=== PATIENT | male | born 1975 | race Caucasian/White ===

== ENCOUNTER 2022-07-31 05:42 | Outpatient (REF) | payer OTHER, SELFPAY ==
[2022-07-31 05:56] LABS: MANUAL DIFF FLAG NO
[2022-07-31 06:00] LABS: Basophils Percent Auto 0.9 % (0-2); Eosinophils Percent Auto 0.9 % (0-4); Hematocrit 23.9 % (42.0-52.0); Hemoglobin 7.7 g/dl (14.0-18.0); Imm Gran Abs Auto 0.05 X10*3/uL (0.00-0.03); Imm Gran Pct Auto 1.6 % (0.0-0.4); Lymphocytes Absolute Auto 0.3 X10*3/uL (1.2-4.9); Lymphocytes Percent Auto 10.8 % (20-40); Mean Corpuscular HGB Conc 32.2 g/dl (31.0-36.0); Mean Corpuscular Hemoglobin 28.9 pg (27.0-33.0); Mean Corpuscular Volume 89.8 fL (80.0-98.0); Mean Platelet Volume 9.2 fL (9.4-12.4); Monocytes Absolute Auto 0.4 X10*3/uL (0.1-1.2); Monocytes Percent Auto 11.7 % (2-11); Neutrophils Absolute Auto 2.3 x10*3/uL (2.0-8.3); Neutrophils Percent Auto 74.1 % (45-73); Platelet Count 367 X10*3/uL (160-400); Red Blood Count 2.66 X10*6/uL (4.60-5.80); Red Cell Distribution Width 17.4 % (11.0-16.0); White Blood Count 3.2 X10*3/uL (4.8-10.8)
[2022-07-31 06:28] LABS: Alanine Aminotransferase 8 U/L (0-40); Albumin Level 3.8 g/dL (3.5-5.0); Alkaline Phosphatase 94 U/L (39-117); Anion Gap 18 (12-20); Aspartate Amino Transferase 9 U/L (5-37); Bilirubin Total 0.4 mg/dL (0.0-1.0); Blood Urea Nitrogen 37 mg/dL (9-16); Calcium 8.6 mg/dL (8.4-10.2); Carbon Dioxide 26 mmol/L (22-29); Chloride 96 mmol/L (96-108); Estimated Glomerular Filt Rate 9; Glucose Random 301 mg/dL (60-115); Potassium 3.7 mmol/L (3.3-5.1); Sodium 136 mmol/L (135-145); Total Protein 5.9 g/dL (6.5-8.0)
== END 2022-07-31 05:43 | disposition home or self-care (01) ==
LOC: HO.MMNH1L 05:42
PROVIDERS: Visit Provider Family Medicine
DX: N18.6 End stage renal disease (principal)
CPT/HCPCS: 36415; 80053; 85025

== ENCOUNTER 2022-08-04 05:45 | Outpatient (REF) | payer OTHER, SELFPAY ==
[2022-08-04 06:19] LABS: Basophils Absolute Auto 0.1 X10*3/uL (0.0-0.2); Basophils Percent Auto 2.8 % (0-2); Eosinophils Percent Auto 1.4 % (0-4); Hematocrit 24.9 % (42.0-52.0); Hemoglobin 7.6 g/dl (14.0-18.0); Imm Gran Abs Auto 0.04 X10*3/uL (0.00-0.03); Imm Gran Pct Auto 1.8 % (0.0-0.4); Lymphocytes Absolute Auto 0.4 X10*3/uL (1.2-4.9); Lymphocytes Percent Auto 16.1 % (20-40); MANUAL DIFF FLAG SCAN; Mean Corpuscular HGB Conc 30.5 g/dl (31.0-36.0); Mean Corpuscular Hemoglobin 28.9 pg (27.0-33.0); Mean Corpuscular Volume 94.7 fL (80.0-98.0); Mean Platelet Volume 9.9 fL (9.4-12.4); Monocytes Absolute Auto 0.3 X10*3/uL (0.1-1.2); Monocytes Percent Auto 13.8 % (2-11); Neutrophils Absolute Auto 1.4 x10*3/uL (2.0-8.3); Neutrophils Percent Auto 64.1 % (45-73); Platelet Count 287 X10*3/uL (160-400); Red Blood Count 2.63 X10*6/uL (4.60-5.80); Red Cell Distribution Width 18.6 % (11.0-16.0); SCAN SMEAR FLAG 1
[2022-08-04 06:20] LABS: White Blood Count 2.2 X10*3/uL (4.8-10.8)
[2022-08-04 07:15] LABS: Anion Gap 20 (12-20); Blood Urea Nitrogen 55 mg/dL (9-16); Calcium 9.1 mg/dL (8.4-10.2); Carbon Dioxide 30 mmol/L (22-29); Chloride 99 mmol/L (96-108); Estimated Glomerular Filt Rate 7; Glucose Random 121 mg/dL (60-115); Potassium 3.3 mmol/L (3.3-5.1); Sodium 146 mmol/L (135-145)
== END 2022-08-04 05:46 | disposition home or self-care (01) ==
LOC: HO.MMNH1L 05:45
PROVIDERS: Visit Provider Family Medicine
DX: N18.6 End stage renal disease (principal)
CPT/HCPCS: 36415; 80048; 85025

== ENCOUNTER 2022-08-06 05:48 | Outpatient (REF) | payer OTHER, SELFPAY ==
[2022-08-06 06:49] LABS: Anion Gap 17 (12-20); Blood Urea Nitrogen 34 mg/dL (9-16); Calcium 9.4 mg/dL (8.4-10.2); Carbon Dioxide 35 mmol/L (22-29); Chloride 97 mmol/L (96-108); Magnesium 2.2 mg/dL (1.6-2.6); Potassium 3.5 mmol/L (3.3-5.1); Sodium 145 mmol/L (135-145)
[2022-08-06 06:51] LABS: Estimated Glomerular Filt Rate 10
[2022-08-07 11:12] LABS: Calcium (PTHI) 9.4 mg/dL (8.6-10.3); PTHI 990 pg/mL (16-77)
[2022-08-08 01:07] LABS: Tacrolimus Prograf 3.5 mcg/L
== END 2022-08-06 05:49 | disposition home or self-care (01) ==
LOC: HO.MMNH1L 05:48
PROVIDERS: Visit Provider Family Medicine
DX: E11.22 Type 2 diabetes mellitus with diabetic chronic kidney disease (principal); N18.6 End stage renal disease
CPT/HCPCS: 36415; 80051; 80197; 82310; 82565; 83735; 83970; 84100; 84520

== ENCOUNTER 2022-08-11 06:41 | Outpatient (REF) | payer OTHER, SELFPAY ==
[2022-08-11 06:59] LABS: Hematocrit 27.9 % (42.0-52.0); Hemoglobin 8.7 g/dl (14.0-18.0); Mean Corpuscular HGB Conc 31.2 g/dl (31.0-36.0); Mean Corpuscular Hemoglobin 30.2 pg (27.0-33.0); Mean Corpuscular Volume 96.9 fL (80.0-98.0); Mean Platelet Volume 9.7 fL (9.4-12.4); Platelet Count 272 X10*3/uL (160-400); Red Blood Count 2.88 X10*6/uL (4.60-5.80); Red Cell Distribution Width 19.3 % (11.0-16.0); White Blood Count 5.8 X10*3/uL (4.8-10.8)
[2022-08-11 07:46] LABS: Anion Gap 20 (12-20); Blood Urea Nitrogen 39 mg/dL (9-16); Carbon Dioxide 32 mmol/L (22-29); Chloride 98 mmol/L (96-108); Estimated Glomerular Filt Rate 8; Glucose Random 187 mg/dL (60-115); Potassium 3.4 mmol/L (3.3-5.1); Sodium 147 mmol/L (135-145)
== END 2022-08-11 06:42 | disposition home or self-care (01) ==
LOC: HO.MMNH1L 06:41
PROVIDERS: Visit Provider Family Medicine
DX: E11.22 Type 2 diabetes mellitus with diabetic chronic kidney disease (principal); N18.6 End stage renal disease
CPT/HCPCS: 36415; 80048; 85027

== ENCOUNTER 2023-06-19 11:27 | Emergency (ER) | payer OTHER, SELFPAY ==
--- NOTE | ~2023-06-19 | XR_ITS ---
EXAMINATION: XR CHEST CLINICAL INFORMATION: Chest pain COMPARISON: None available. TECHNIQUE: 2 views of the chest were obtained. FINDINGS: No focal consolidation. No pneumothorax. Trachea is midline. Cardiac mediastinal silhouette is not enlarged. No large or intact. Soft tissues are unremarkable. XR/XR chest 2V IMPRESSION: No acute cardiopulmonary process.
--- NOTE | ~2023-06-19 | XR_ITS ---
EXAMINATION: XR HUMERUS LEFT XR SHOULDER LEFT XR WRIST LEFT CLINICAL INFORMATION: Pain COMPARISON: Left shoulder radiographs from 02/10/2013 TECHNIQUE: Left shoulder, 3 views Left humerus, 2 views Left wrist, 4 views FINDINGS: Left shoulder: Alignment is normal at the glenohumeral and acromioclavicular joints. Small osteophytes are present at the glenohumeral joint. A few small clustered foci calcification project over the region of the distal infraspinatus tendon. The acromiohumeral distance is normal. There are no osteophytes projecting from the undersurface of the acromioclavicular joint. No os acromiale or subacromial enthesophyte. Left humerus: Intact. No lytic or blastic lesion. No focal soft tissue swelling. The elbow is normal. Arterial vascular calcifications are seen within the extremity. Left wrist: There are arterial vascular calcifications. Otherwise, soft tissues, bones and joints are unremarkable. Joint spaces of the wrist are maintained. No arthritic deformity. No acute fracture, subluxation or focal soft tissue swelling. XR/XR humerus LT IMPRESSION: * Mild osteoarthritis of the glenohumeral joint. * A few small foci of calcification are present in the region of the distal infraspinatus tendon. Calcific tendinitis could be a cause of shoulder pain. * No evidence of humeral fracture or subluxation. Alignment is normal at the glenohumeral joint and elbow. * The wrist is unremarkable.
--- NOTE | ~2023-06-19 | XR_ITS ---
EXAMINATION: XR HUMERUS LEFT XR SHOULDER LEFT XR WRIST LEFT CLINICAL INFORMATION: Pain COMPARISON: Left shoulder radiographs from 02/10/2013 TECHNIQUE: Left shoulder, 3 views Left humerus, 2 views Left wrist, 4 views FINDINGS: Left shoulder: Alignment is normal at the glenohumeral and acromioclavicular joints. Small osteophytes are present at the glenohumeral joint. A few small clustered foci calcification project over the region of the distal infraspinatus tendon. The acromiohumeral distance is normal. There are no osteophytes projecting from the undersurface of the acromioclavicular joint. No os acromiale or subacromial enthesophyte. Left humerus: Intact. No lytic or blastic lesion. No focal soft tissue swelling. The elbow is normal. Arterial vascular calcifications are seen within the extremity. Left wrist: There are arterial vascular calcifications. Otherwise, soft tissues, bones and joints are unremarkable. Joint spaces of the wrist are maintained. No arthritic deformity. No acute fracture, subluxation or focal soft tissue swelling. XR/XR wrist LT min 3V IMPRESSION: * Mild osteoarthritis of the glenohumeral joint. * A few small foci of calcification are present in the region of the distal infraspinatus tendon. Calcific tendinitis could be a cause of shoulder pain. * No evidence of humeral fracture or subluxation. Alignment is normal at the glenohumeral joint and elbow. * The wrist is unremarkable.
--- NOTE | ~2023-06-19 | XR_ITS ---
EXAMINATION: XR HUMERUS LEFT XR SHOULDER LEFT XR WRIST LEFT CLINICAL INFORMATION: Pain COMPARISON: Left shoulder radiographs from 02/10/2013 TECHNIQUE: Left shoulder, 3 views Left humerus, 2 views Left wrist, 4 views FINDINGS: Left shoulder: Alignment is normal at the glenohumeral and acromioclavicular joints. Small osteophytes are present at the glenohumeral joint. A few small clustered foci calcification project over the region of the distal infraspinatus tendon. The acromiohumeral distance is normal. There are no osteophytes projecting from the undersurface of the acromioclavicular joint. No os acromiale or subacromial enthesophyte. Left humerus: Intact. No lytic or blastic lesion. No focal soft tissue swelling. The elbow is normal. Arterial vascular calcifications are seen within the extremity. Left wrist: There are arterial vascular calcifications. Otherwise, soft tissues, bones and joints are unremarkable. Joint spaces of the wrist are maintained. No arthritic deformity. No acute fracture, subluxation or focal soft tissue swelling. XR/XR shoulder LT min 2V IMPRESSION: * Mild osteoarthritis of the glenohumeral joint. * A few small foci of calcification are present in the region of the distal infraspinatus tendon. Calcific tendinitis could be a cause of shoulder pain. * No evidence of humeral fracture or subluxation. Alignment is normal at the glenohumeral joint and elbow. * The wrist is unremarkable.
[2023-06-19 11:41] VITALS: BP 124/77; BMI 23.1
[2023-06-19 11:46] VITALS: BP 147/82; PULSE 97; RESP 18; TEMP 37.1; O2SAT 95
--- OUTSIDE RECORDS SUMMARY | 2023-06-19 12:37 | XMS_ITS | Continuity of Care Document ---
Author Name Unknown Organization [facility] Address [address] [place] [address]- Care Team Providers Care Transport Pilot Name Role Phone Kenneth CLARKE, Arleen Primary Care Physician [phone] [place]counter [facility] [place](s): 12/31/22 - 01/30/23 [facility] [address] [place] [id number] Allergies, Adverse Reactions, Alerts Substance Reaction Severity Status ibuprofen decreased kidney function Ac tive aspirin decresed kidney function Act nina Toradol 1 decreased kidney function Ac tive Robaxin itching Active Valium difficulty breathing Active Vicodin itching Active 1Pt states he is not allergic to this medication Immunizations Given and Recorded Vaccine Date Status Refusal Reason [id number] 12y+ bivalent booster vax 1 07/17/22 Given influenza virus vaccine, inactivated 07/17/22 Give n influenza virus vaccine, inactivated 08/01/21 Darrick rded influenza virus vaccine, inactivated 07/12/20 Darrick rded influenza virus vaccine, inactivated 06/30/19 Give n influenza virus vaccine, inactivated 07/16/15 Give n influenza virus vaccine, inactivated 08/10/14 Give n SARS-CoV-2 (COVID-19) mRNA BNT-162b2 vac 08/01/21 Recorded SARS-CoV-2 (COVID-19) mRNA BNT-162b2 vac 01/14/21 Recorded SARS-CoV-2 (COVID-19) mRNA BNT-162b2 vac 12/22/20 Recorded pneumococcal 13-valent vaccine 04/04/21 Given hepatitis B adult vaccine 07/16/15 Given hepatitis B adult vaccine 05/14/15 Given hepatitis B adult vaccine 7/16/15 Given pneumococcal 23-valent vaccine 11/09/14 Given tetanus/diphtheria/pertussis, acel(Tdap) 11/09/14 Given tetanus-diphtheria toxoids (Td) 2 11/27/11 Given Influenza Inactive (IM) (oldterm) 3 11/27/11 Given 1Result Comment: GIVEN BY GERALDINE HOOKS, RN 2Admin Note: vis 08/15/08 3Admin Note: vis Medications Alcohol Pads See Instructions, # 100 each, Refills 11, Tot. Refills 11, Maintenance, use to clean skin prior to insulin injections and before applying new sagar sensor (max 5 times per day), 11/25/22 10:33:00 EST, Supply, 168, cm, 11/11/22 8:46:00 EST, Height, 60.... Start Date: 11/25/22 Status: Ordered B-D PEN NDL MINI [id number](12/11)PRPL USE DIRECTED FOR TYPE 1 DIABETES Start Date: 11/25/22 Status: Ordered Baqsimi One Pack 3 mg nasal powder See Instructions, 3 mg Once In one nostril; dose does not need to be inhaled may repeat in 15 minutes alternate nostrils, # 1 each, 5 Refills, Soft Stop, 09/19/22 22:47:00 EST, [facility] #[id number], Partial fill upon patient request if the p... Start Date: 09/19/22 Status: Ordered Blood Pressure Monitor Blood Pressure Monitor, See Instructions, # 1 each, Refills 0, Tot. Refills 0, Maintenance, to be used to check BP daily, Dx: HTN, ESRD on HD, new onset hypotenstion with falls; just stopped nifedipine, 07/17/22 18:07:00 EDT, Supply Start Date: 07/17/22 Status: Ordered FLUoxetine 20 mg oral capsule 1, capsule, By Mouth, Daily, # 30 capsule, Refills 11, Maintenance, 09/30/22 13:35:00 EST, Route toPharmacy Electronically, [facility] #[id number], 168, cm, 09/19/22 14:56:00 EST, Height, 60.2,kg, 07/24/22 0:30:00 EDT, Dry Weight Start Date: 09/30/22 Status: Ordered FreeStyle Sagar 2 Monitor See Instructions, # 1 each, Refills 0, Tot. Refills 0, Maintenance, use to check blood sugar every 8 hours, 11/17/22 8:32:00 EST, Supply, 168, cm, 11/11/22 8:46:00 EST, Height, 60.2, kg, 07/24/22 0:30:00 EDT, Dry Weight Start Date: 11/17/22 Status: Ordered FREESTYLE SAGAR 2 READER DEVICE FREESTYLE SAGAR 2 READER DEVICE, See Instructions, # 1 each, 0 Refills, Maintenance, USE TO CHECK BLOOD SUGAR EVERY 8 HOURS, 12/10/22 13:44:00 EDT, 168, cm, 12/05/22 10:47:00 EST, Height, 60.2, kg, 07/24/22 0:30:00 EDT, Dry Weight Start Date: 12/10/22 Status: Ordered FreeStyle Sagar 2 Sensors See Instructions, # 2 each, Refills 11, Tot. Refills 11, Maintenance, use to check blood sugar at least every 8 hours, replace sensors every 14 days, 11/17/22 8:32:00 EST, Supply, 168, cm, 11/11/22 8:46:00 EST, Height, 60.2, kg, 07/24/22 0:30:00 EDT,... Start Date: 11/17/22 Status: Ordered Freestyle Lite Lancets See Instructions, # 100 each, Refills 3, Tot. Refills 3, Maintenance, use to check BG BID for dx: Type 2 Diabetes Mellitus, 06/29/22 11:35:00 EDT, Supply, 167, cm, 06/29/22 8:48:00 EDT, Height, 69.75, kg, 06/10/22 1:04:00 EDT, Dry Weight Start Date: 06/29/22 Status: Ordered Freestyle Lite Monitor See Instructions, # 1 each, Refills 0, Tot. Refills 0, Maintenance, use to check BG BID for type 2 DM, 07/12/20 13:48:00 EDT, Supply, 167.64, cm, 07/12/20 8:38:00 EDT, Height, 70, kg, 04/11/20 15:19:00 EDT, Dry Weight Start Date: 07/12/20 Stop Date: 08/11/20 Status: Ordered Freestyle Lite Test Strips See Instructions, # 100 each, Refills 11, Tot. Refills 11, Maintenance, use to check BG BID for dx:E11.65, 06/29/22 11:36:00 EDT, Supply, 167, cm, 06/29/22 8:48:00 EDT, Height, 69.75, kg, 06/10/22 1:04:00 EDT, Dry Weight Start Date: 06/29/22 Status: Ordered glucose 4 gm oral tablet, chewable 4 tablet = 16 Gm, Chew, Once, PRN as needed for low blood sugar, # 50 tablet, 0 Refills, Soft Stop,09/19/22 22:51:00 EST, Chew Tablet, [facility] #[id number], Partial fill upon patient request if the prescription is for a schedule II opioid drug... Start Date: 09/19/22 Status: Ordered Lantus Solostar Pen 100 units/mL subcutaneous solution See Instructions, Please take 20 units at bedtime E11.8, # 45 mL, 3 Refills, Maintenance, 12/29/22 8:07:00 EDT, Injection, [facility] #[id number], Partial fill upon patient request if the prescription is for a schedule II opioid drug., 168, cm,... Start Date: 12/29/22 Status: Ordered levothyroxine 0.025 mg oral tablet 1.5 tablet, By Mouth, Daily, # 45 tablet, 10 Refills, Maintenance, 01/12/23 16:11:00 EDT, [facility] #[id number], 168, cm, 12/26/22 16:32:00 EDT, Height, 72.7, kg, 12/20/22 14:52:00 EDT, Dry Weight Start Date: 01/12/23 Status: Ordered multivitamin Vitamin B Complex with C and Folic Acid oral capsule TAKE 1 CAPSULE BY MOUTH ONCE DAILY Start Date: 11/25/22 Status: Ordered mycophenolate mofetil 500 mg oral tablet TAKE 3 TABLETS BY MOUTH TWICE DAILY Start Date: 11/25/22 Status: Ordered NovoLOG FlexPen 100 units/mL subcutaneous solution See Instructions, Please take at least 15 minutes before meals 3 times a day per the scale: BG 100 - 139: 6 units; BG 140 - 179: 7 units; BG 180 - 219: 8 units; BG 220 - 259: 9 units; BG 260 - 299: 10 units; BG 300 - 339: 11 units; BG... Start Date: 12/27/22 Status: Ordered Pen [place], 31 G x 5 mm BD Ultra Fine III See Instructions, # 100 each, Refills 3, Tot. Refills 3, Maintenance, use as directed for Diabetes Mellitus E11.8, 12/27/22 11:56:00 EDT, Compound, 168, cm, 12/26/22 16:32:00 EDT, Height, 72.7, kg, 12/20/22 14:52:00 EDT, Dry Weight Start Date: 12/27/22 Stop Date: 12/22/23 Status: Ordered predniSONE 5 mg oral tablet 1 tablet = 5 mg, By Mouth, Daily, # 60 tablet, 0 Refills, Maintenance, 06/28/22 11:25:00 EDT, Tablet, [facility] #[id number], Partial fill upon patient request if the prescription is for a schedule II opioid drug., 167, cm, 06/28/22 8:15:00 EDT,... Start Date: 06/28/22 Status: Ordered sevelamer carbonate 800 mg oral tablet 2 tablet = 1,600 mg, By Mouth, 3 times a day with meals, 0 Refills, Maintenance, 07/30/22 13:40:00 EDT, Tablet, Partial fill upon patient request if the prescription is for a schedule II opioid drug. Start Date: 07/30/22 Status: Ordered sulfamethoxazole-trimethoprim 400 mg-80 mg oral tablet TAKE 1 TABLET BY MOUTH EVERY OTHER DAY FOR PROPHYLAXIS. GIVEN HE IS ON ANTI REJECTION TREATMENT [facility] REJECTION Start Date: 11/25/22 Status: Ordered tacrolimus 1 mg oral tablet, extended release = 8 mg, By Mouth, Daily in AM, Please take tacrolimus 8 mg PO daily in AM and f/u with nephrologistfor level monitoring and dose adjustment., # 30 tablet, 0 Refills, Maintenance, 07/10/22 12:57:00 EDT, XR Tablet, [facility] #[id number], Partial... Start Date: 07/10/22 Stop Date: 08/09/22 Status: Ordered tamsulosin 0.4 mg oral capsule 0.4 mg, 1, capsule, By Mouth, Daily, # 30 capsule, Refills 0, Tot. Refills 0, Maintenance, :30:00 EDT, Route to Pharmacy Electronically, [facility] #[id number], Partial fill upon patient request if the prescription is for a schedule II... Start Date: 07/21/22 Status: Ordered Trulicity Pen 0.75 mg/0.5 mL subcutaneous solution 0.5 mL = 0.75 mg, Subcutaneous Injection, Every week, rotate injection sites, # 2 mL, 5 Refills, Maintenance, 12/26/22 17:06:00 EDT, Solution, [facility] #[id number], Partial fill upon patient request if the prescription is for a schedule II opio... Start Date: 12/26/22 Status: Ordered valganciclovir 450 mg oral tablet 450 mg, 1, tablet, By Mouth, Every Thursday, Thursday and Thursday, # 26 tablet, Refills 1, Tot. Refills 1, Maintenance, 06/28/22 11:26:00 EDT, Route to Pharmacy Electronically, [facility] #[id number], Partial fill upon patient request if the prescr... Start Date: 06/28/22 Stop Date: 09/28/22 Status: Ordered Problem List Condition Confirmation Course Effective Dates Status H ealth Status Informant ESRD on hemodialysis Confirmed Active Diabetes mellitus Confirmed Active Hearing loss 1 Confirmed Active -donor kidney transplant recipient 2 Confirmed 04/11/20 Active Hyperkalemia Confirmed Active HTN (hypertension) Confirmed Active Lower back pain Confirmed Active ADAM (obstructive sleep apnea) Confirmed Active [facility] Care Management Vernell Mckenzie [phone] Confirmed Active Subclinical hypothyroidism Confirmed Active 1Weighed 1.5 pounds at . 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 Social History Social History Type Response Smoking Status Never smoker; Tobacc o user in household: No entered on: 09/12/15 Sex Patient Care team information Care Team Personnel Name: Desmond Anton RN Position: S RN Member Role: Primary Care Nurse Name: Eliza Ch RN Position: [facility] RN Member Role: Primary Care Nurse Name: Izzy Cooper Position: [facility] RN Member Role: Primary Care Nurse Name: Elie Alex MD Position: [facility] Renal MD Member Role: Lifetime Consulting Physician Address: Address: [address] [place] [address], [address] [facility] [place] [address]- Name: Rayray Brand Position: [facility] Physician (General Medicine) Member Role: Primary Care Nurse Name: Liudmila Hinds Position: [facility] RN Member Role: Primary Care Nurse Name: Kannan Gibbs RN Position: [facility] RN Member Role: Primary Care Nurse Name: Chase Brumfield RN Position: [facility] ED RN W/OE and Tasks Member Role: Primary Care Nurse Name: Link Stein RN Position: [facility] RN Supv Member Role: Primary Care Nurse Name: Isai Weaver DO Position: [facility] Renal MD Member Role: Lifetime Consulting Physician Address: Address: [address] [place], [place] [address] [place] [address]- Name: Lor Abdullahi RN Position: [facility] RN Member Role: Primary Care Nurse Name: Charity Billings RN Position: [facility] RN Member Role: Primary Care Nurse Name: Trae Hawkins III, RN Position: [facility] RN Member Role: Primary Care Nurse Name: Yamini Soares Position: [facility] RN Member Role: Primary Care Nurse Name: Marcus Ardon RN Position: [facility] RN Member Role: Primary Care Nurse Name: Jaison Sherwood MD Position: [facility] Renal MD Member Role: Lifetime Consulting Physician Address: Address: [address] [place] [address] [address] [facility] [place] [address]- [place] Name: Anna White RN Position: [facility] AMB Nurse Member Role: Primary Care Nurse Name: Marleny Sanchez RN Position: [facility] RN Member Role: Primary Care Nurse Name: Gabriel Chappell MD Position: [facility] Renal MD Member Role: Lifetime Consulting Physician Address: Address: [address] [place] [address] [facility] [place] [address]- Name: Muriel Page RN Position: [facility] SN RN Member Role: Primary Care Nurse Name: Marielena Sheehan RN Position: [facility] RN Member Role: Primary Care Nurse Name: Nadia Hernandez RN Position: [facility] RN Member Role: Primary Care Nurse Name: Alyssa Nguyen RN Position: [facility] RN Member Role: Primary Care Nurse Name: Елена Jules RN Position: [facility] RN Member Role: Primary Care Nurse Name: Arleen Cooper MD Position: [facility] Primary Care Physician Member Role: PCP Address: Address: [address] [place] [address]- [place] Care Team Related Persons Name: CAMI ELIAS Address: [address] [place] [address] Name: HERMILO PANDA Address: home [address] [address] Name: JACK PANDA Address: [address] [place] [address]
--- OUTSIDE RECORDS SUMMARY | 2023-06-19 12:37 | XMS_ITS | Continuity of Care Document ---
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 Role Phone Arleen Cooper MD Primary Care Physician Encounter [facility] Date(s): 07/19/22 - 07/22/[address] [address]- Encounter Diagnosis Diarrhea(Final) - 07/18/22 Discharge Disposition: A-D/C Home Attending Physician: Seema Chamorro MD Admitting Physician: Lilly Dutta MD Referring Physician: Not on Staff, Referring MD Allergies, Adverse Reactions, Alerts Substance Reaction Severity Status ibuprofen decreased kidney function Ac tive aspirin decresed kidney function Act nina Toradol 1 decreased kidney function Ac tive Robaxin itching Active Valium difficulty breathing Active Vicodin itching Active 1Pt states he is not allergic to this medication Immunizations Given and Recorded Vaccine Date Status Refusal Reason [id number] 12y+ bivalent booster vax 1 07/17/22 Given [...] vaccine 05/14/15 Given hepatitis B adult vaccine 04/12/15 Given pneumococcal 23-valent vaccine 11/09/14 Given tetanus/diphtheria/pertussis, acel(Tdap) 11/09/14 Given tetanus-diphtheria toxoids (Td) 2 11/27/11 Given Influenza Inactive (IM) (oldterm) 3 11/27/11 Given 1Result Comment: GIVEN BY GERALDINE HOOKS, RN 2Admin Note: vis 08/15/08 3Admin Note: vis Medications B-D PEN NDL SHRT [id number](02/10) COOPER B-D PEN NDL SHRT [id number](02/10) COOPER, See Instructions, # 100 each, 0 Refills, Maintenance, USE DIRECTED, 167.64, cm, 02/28/21 10:34:00 EDT, Height, 63.7, kg, 01/30/21 22:32:00 EDT, Dry Weight Start Date: 03/18/21 Status: Ordered Blood Pressure Monitor Blood Pressure Monitor, See Instructions, # 1 each, Refills 0, Tot. Refills 0, Maintenance, to be used to check BP daily, Dx: HTN, ESRD on HD, new onset hypotenstion with falls; just stopped nifedipine, 07/17/22 18:07:00 EDT, Supply Start Date: 07/17/22 Status: Ordered Blood Pressure Monitor Blood Pressure Monitor, See Instructions, # 1 each, Refills 0, Tot. Refills 0, Maintenance, to be used to check BP daily, Dx: HTN med monitoring on amlodipine hydralazine, 02/16/20 17:20:00 EDT, Supply Start Date: 02/16/20 Status: Ordered FREESTYLE LITE BLOOD GLUCOSE STRIPS FREESTYLE LITE BLOOD GLUCOSE STRIPS, See Instructions, # 100 Unknown, 5 Refills, Maintenance, USE TWICE DAILY, 06/04/22 16:23:00 EDT, 167.64, cm, 01/23/22 11:51:00 EDT, Height, 63.7, kg, 01/30/21 22:32:00 EDT, Dry Weight Start Date: 06/04/22 Status: Ordered Freestyle Lite Lancets See Instructions, [...] Dry Weight Start Date: 06/29/22 Status: Ordered gabapentin 100 mg oral capsule 100 mg, Capsule, By Mouth, 07/22/22 9:00:00 EDT Start Date: 07/22/22 Stop Date: 07/22/22 Status: Completed gabapentin 300 mg oral capsule 300 mg, 1, capsule, By Mouth, 3 times a day, # 90 capsule, Refills 0, Tot. Refills 0, Maintenance, 01/23/22 16:09:00 EDT, Route to Pharmacy Electronically, [facility] #[id number], Partial fill upon patient request if the prescription is for a jana... Start Date: 01/23/22 Status: Ordered insulin glargine (concentrated) 300 units/mL subcutaneous solution See Instructions, 18 units s/c at bedtime, # 12 mL, 2 Refills, Maintenance, 06/29/22 11:32:00 EDT, Solution, [facility] #[id number], Partial fill upon patient request if the prescription is for a schedule II opioid drug., 167, cm, 06/29/22 8:48:0... Start Date: 06/29/22 Status: Ordered insulin lispro (concentrated) 200 units/mL subcutaneous solution See Instructions, 3 units Subcutaneous Infusion for FSBS of every 100 and 1 unit additional for every 40 above 100, # 12 mL, 3 Refills, Maintenance, 06/29/22 14:22:00 EDT, [facility] #[id number], Partial fill upon patient request if the prescript... Start Date: 06/29/22 Status: Ordered levothyroxine 0.025 mg oral tablet 1.5 tablet, By Mouth, Daily, # 135 tablet, 0 Refills, [facility] #[id number], 167.64, cm, 01/23/22 11:51:00 EDT, Height, 63.7, kg, 01/30/21 22:32:00 EDT, Dry Weight Start Date: 03/27/22 Status: Ordered multivitamin Multiple Vitamins oral capsule 1 capsule, By Mouth, Daily, # 30 capsule, 0 Refills, Maintenance, 06/28/22 11:24:00 EDT, Capsule, [facility] #[id number], Partial fill upon patient request if the prescription is for a schedule II opioid drug., 1 capsule By Mouth Daily,x30 days,... Start Date: 06/28/22 Stop Date: 07/28/22 Status: Ordered pantoprazole 40 mg oral delayed release tablet = 40 mg, By Mouth, Daily, # 30 tablet, 0 Refills, Maintenance, 06/28/22 11:25:00 EDT, EC Tablet, 167, cm, 06/28/22 8:15:00 EDT, Height, 69.75, kg, 06/10/22 1:04:00 EDT, Dry Weight Start Date: 06/28/22 Stop Date: 07/28/22 Status: Ordered Pen [place], 31 G x 5 mm BD Ultra Fine III See Instructions, # 100 each, Refills 3, Tot. Refills 3, Maintenance, use as directed for Type 1 Diabetes Mellitus, 06/29/22 11:36:00 EDT, Compound, 167, cm, 06/29/22 8:48:00 EDT, Height, 69.75, kg, 06/10/22 1:04:00 EDT, Dry Weight Start Date: 06/29/22 Stop Date: 06/24/23 Status: Ordered predniSONE 5 mg oral tablet 2 tablet = 10 mg, By Mouth, Daily, # 60 tablet, 0 Refills, Maintenance, 06/28/22 11:25:00 EDT, Tablet, [facility] #[id number], Partial fill upon patient request if the prescription is for a schedule II opioid drug., 167, cm, 06/28/22 8:15:00 EDT,... Start Date: 06/28/22 Status: Ordered PROzac 20 mg oral capsule 20 mg, 1, capsule, By Mouth, Daily, # 30 capsule, Refills 0, Tot. Refills 0, Maintenance, 07/10/22 11:33:00 EDT, Route to Pharmacy Electronically, [facility] #[id number], Partial fill upon patient request if the prescription is for a schedule II... 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 Start Date: 07/10/22 Stop Date: 09/08/22 Status: Ordered tacrolimus 1 mg oral tablet, extended release = 7 mg, By Mouth, Daily in AM, Please take tacrolimus 7 mg PO daily in AM and f/u with nephrologistfor level monitoring and dose adjustment., # 210 tablet, 0 Refills, Maintenance, 07/10/22 12:57:00 EDT, XR Tablet, [facility] #[id number], Partial... Start Date: 07/10/22 Stop Date: 08/09/22 Status: Ordered tamsulosin 0.4 mg oral capsule 0.4 mg, 1, capsule, By Mouth, Daily, # 30 capsule, Refills 0, Tot. Refills 0, Maintenance, :30:00 EDT, Route to Pharmacy Electronically, [facility] #[id number], Partial fill upon patient request if the prescription is for a schedule II... Start Date: 07/21/22 Status: Ordered valganciclovir 450 mg oral tablet 450 mg, 1, tablet, By Mouth, Every Thursday, Thursday and Thursday, # 12 tablet, Refills 1, Tot. Refills 1, Maintenance, 06/28/22 11:26:00 EDT, Route to Pharmacy Electronically, [facility] #[id number], Partial fill upon patient request if the prescr... Start Date: 06/28/22 Status: Ordered vancomycin 125 mg oral capsule 1 capsule = 125 mg, By Mouth, Every 6 hours, for 10 days, Doses over 125 mg require ID consult. Indication for Use: C. difficile colitis, # 40 capsule, 0 Refills, Acute 07/31/22 9:30:00 EDT, :30:00 EDT, Capsule, [facility] #[id number],... Start Date: 07/21/22 Stop Date: 07/31/22 Status: Ordered Problem List Condition Confirmation Course Effective Dates Status H ealth Status Informant ESRD on hemodialysis Confirmed Active Diabetes mellitus Confirmed Active Hearing loss 1 Confirmed Active -donor kidney transplant recipient 2 Confirmed 04/11/20 Active Hyperkalemia Confirmed Active HTN (hypertension) Confirmed Active Lower back pain Confirmed Active ADAM (obstructive sleep apnea) Confirmed Active N Care Management [facility], Vernell Fabian [phone] Confirmed Active Subclinical hypothyroidism Confirmed Active 1Weighed 1.5 pounds at . 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 Results Orders for Microbiology Reports Name Date Blood Culture 07/18/22 Blood Culture #2 07/18/22 Microbiology Reports TEST:Blood Culture STATUS:Unauthenticated BODY SITE: SOURCE:Blood COLLECTED DATE/TIME:07/18/22 11:44 AM Blood Culture SPECIMEN DESCRIPTION : BLOOD NO SITE SPECIAL REQUESTS : NONE CULTURE : NO GROWTH 4 DAYS REPORT STATUS : PRELIMINARY REPORT TEST:Blood Culture, Second Order STATUS:Unauthenticated BODY SITE: SOURCE:Blood COLLECTED DATE/TIME:07/18/22 11:44 AM Blood Culture, Second Order SPECIMEN DESCRIPTION : BLOOD L HAND SPECIAL REQUESTS : NONE CULTURE : NO GROWTH 4 DAYS REPORT STATUS : PRELIMINARY REPORT Radiology Reports * Exam Date Time Procedure Performing Provider Status 07/18/22 1:48 PM Chest 2 Views Frontal and Lat Adis Lobo; Auth (Verified) Notes: (Chest 2 Views Frontal and Lat) Reason For Exam: Cough RESULT: Chest 2 Views Frontal and Lat Chest 2 Views Frontal and Lat Hx of Present Illness: was here for 1 month, home for a few days etc and continues to get worse, sicker then ever, diarrhea multiple times, low blood pressure, tired, lethargic cannot stop more then 5 min, had dialysis today full treatment was sent here after; COMPARISON: 07/06/2022 FINDINGS: LINES AND TUBES: None. LUNGS AND PLEURA: Low lung volumes. Minor bibasilar opacity is probably due to atelectasis. No major consolidation oredema. No pleural effusion. No pneumothorax. HEART, MEDIASTINUM AND JASON: Heart is normal in size. Normal mediastinal and hilar contour. BONES AND SOFT TISSUES: Normal. IMPRESSION: Low lung volumes and likely mild basilar atelectasis. No convincing evidence of pneumonia or other acute process. WSN: [id number] Ordering Physician: Flori Castillo Dictated By: Lalo Lynn MD Dictated Date/Time: 07/18/22 1:52 pm Reviewed By: Lalo Lynn MD Signed By: Lalo yLnn MD Signed Date/Time: 07/18/22 1:52 pm Transcribed By: AMANDA Transcribed Date/Time: 07/18/22 1:50 pm Vital Signs Most recent to oldest [Reference Range]: 1 2 3 Height 168 cm (07/22/22 7:52 AM) 168 cm (07/22/22 4:30 AM) 168 cm (07/21/22 9:10 PM) Weight 53.2 kg (07/18/22 7:42 PM) 53.2 kg (07/18/22 6:57 PM) 60 kg (07/18/22 3:27 PM) Oxygen Saturation [94-100 %] 95 % (07/22/22 7:52 AM) 96 % (07/22/22 4:30 AM) 96 % (07/21/22 9:10 PM) Pulse Rate [55-90 bpm] 98 bpm *H* (07/22/22 7:52 AM) 107 bpm *H* (07/22/22 4:30 AM) 100 bpm *H* (07/21/22 9:10 PM) Body Mass Index [18.5-24.99 kg/m2] 18.85 kg/m2 (07/18/22 6:57 PM) 21.26 kg/m2 (07/18/22 3:27 PM) 21.26 kg/m2 (07/18/22 11:11 AM) Blood Pressure [90-138/55-84 mm Hg] 98/50mm Hg (07/22/22 7:52 AM) 117/60mm Hg (07/22/22 4:30 AM) 119/67mm Hg (07/21/22 9:10 PM) Respiratory Rate [16-30 br/min] 16 br/min (07/22/22 10:05 AM) 18 br/min (07/22/22 9:05 AM) 19 br/min (07/22/22 7:52 AM) Temperature [96.8-100.4 DegF] 99.2 DegF (07/22/22 7:52 AM) 100 DegF (07/22/22 4:30 AM) 98.2 DegF (07/21/22 9:10 PM) Mode of Delivery (Oxygen) Room air (07/22/22 7:52 AM) Room air (07/22/22 4:30 AM) Room air (07/21/22 9:10 PM) Blood pressure sites Arm, left (07/22/22 4:30 AM) Arm, right (07/21/22 9:10 PM) Arm, left (07/21/22 9:49 AM) Temperature Route Oral (07/22/22 7:52 AM) Oral (07/22/22 4:30 AM) Oral (07/21/22 9:10 PM) Dry Weight 53.2 kg (07/18/22 6:57 PM) 60 kg (07/18/22 3:27 PM) 60 kg (07/18/22 11:11 AM) Weight Obtained Via Bed scale (07/18/22 7:42 PM) Social History Social History Type Response Smoking Status Never smoker; Tobacc o user in household: No entered on: 09/12/15 Sex Note * [employer] , CIS S: TRANSCRIBE Lalo Lynn MD: VERIFY Event Display: Result: Authored Date: [id number] Chest 2 Views Frontal and Lat Hx of Present Illness: was here for 1 month, home for a few days etc and continues to get worse, sicker then ever, diarrhea multiple times, low blood pressure, tired, lethargic cannot stop more then 5 min, had dialysis today full treatment was sent here after; COMPARISON: 07/06/2022 FINDINGS: LINES AND TUBES: None. LUNGS AND PLEURA: Low lung volumes. Minor bibasilar opacity is probably due to atelectasis. No major consolidation oredema. No pleural effusion. No pneumothorax. HEART, MEDIASTINUM AND JASON: Heart is normal in size. Normal mediastinal and hilar contour. BONES AND SOFT TISSUES: Normal. IMPRESSION: Low lung volumes and likely mild basilar atelectasis. No convincing evidence of pneumonia or other acute process. WSN: [id number] Ordering Physician: Flori Castillo Dictated By: Lalo Lynn MD Dictated Date/Time: 07/18/22 1:52 pm Reviewed By: Lalo Lynn MD Signed By: Lalo Lynn MD Signed Date/Time: 07/18/22 1:52 pm Transcribed By: AMANDA Transcribed Date/Time: 07/18/22 1:50 pm Patient Care team information Personnel Name: Arleen Cooper MD Address: Address: [address] [place] [address]
--- OUTSIDE RECORDS SUMMARY | 2023-06-19 12:37 | XMS_ITS | Continuity of Care Document ---
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 Role Phone Arleen Cooper MD Primary Care Physician [phone] Encounter [facility] Date(s): 01/09/22 - 02/08/[address] [address]- Allergies, Adverse Reactions, Alerts Substance Reaction Severity Status ibuprofen decreased kidney function Ac tive aspirin decresed kidney function Act nina Toradol 1 decreased kidney function Ac tive Robaxin itching Active Valium difficulty breathing Active Vicodin itching Active 1Pt states he is not allergic to this medication Immunizations Given and Recorded Vaccine Date Status Refusal Reason influenza virus vaccine, inactivated 08/01/21 Darrick rded [...] tetanus/diphtheria/pertussis, acel(Tdap) 11/09/14 Given tetanus-diphtheria toxoids (Td) 1 11/27/11 Given Influenza Inactive (IM) (oldterm) 2 11/27/11 Given 1Admin Note: vis 08/15/08 2Admin Note: vis Medications amLODIPine 10 mg oral tablet 10 mg, 1, tablet, By Mouth, Daily, # 30 tablet, Refills 5, Tot. Refills 5, Maintenance, 02/18/21 16:31:00 EDT, Route to Pharmacy Electronically, [facility] #[id number], Partial fill upon patientrequest if the prescription is for a schedule II op... Start Date: 02/18/21 Stop Date: 08/17/21 Status: Ordered B-D PEN NDL SHRT [id number](02/10) COOPER B-D PEN NDL SHRT [id number](02/10) COOPER, See Instructions, # 100 each, 0 [...] EDT, Supply Start Date: 02/16/20 Status: Ordered carvedilol 12.5 mg oral tablet 12.5 mg, 1, tablet, By Mouth, 2 times a day, # 60 tablet, Refills 0, Tot. Refills 0, Maintenance, 07/18/20 11:05:00 EDT, Route to Pharmacy Electronically, [facility], 167.64, cm, 07/12/20 8:38:00 EDT, Height, 70, kg, 04/11/20 15:19:00... Start Date: 07/18/20 Stop Date: 08/17/20 Status: Ordered Envarsus XR 1 mg oral tablet, extended release 4 tablet = 4 mg, By Mouth, Daily in AM, # 240 tablet, 0 Refills, Maintenance, 04/12/20 12:33:00 EDT, [facility], 167.64, cm, 04/12/20 4:21:00 EDT, Height, 70, kg, 04/11/20 15:19:00 EDT, Dry Weight Start Date: 04/12/20 Status: Ordered Freestyle Lite Lancets See Instructions, # 100 each, Refills 3, Tot. Refills 3, Maintenance, use to check BG BID for dx: Type 2 Diabetes Mellitus, 07/30/21 9:34:00 EDT, Supply, 167.64, cm, 04/04/21 10:55:00 EDT, Height, 63.7, kg, 01/30/21 22:32:00 EDT, Dry Weight Start Date: 07/30/21 Status: Ordered Freestyle Lite Monitor See Instructions, [...] use to check BG BID for dx:E11.65, 04/29/21 8:22:00 EDT, Supply, 167.64, cm, 04/04/21 10:55:00 EDT, Height, 63.7, kg, 01/30/2122:32:00 EDT, Dry Weight Start Date: 04/29/21 Status: Ordered gabapentin 300 mg oral capsule 300 mg, 1, capsule, By Mouth, 3 times a day, # 90 capsule, Refills 0, Tot. Refills 0, Maintenance, 01/23/22 16:09:00 EDT, Route to Pharmacy Electronically, [facility] #[id number], Partial fill upon patient request if the prescription is for a jana... Start Date: 01/23/22 Status: Ordered Kayexcelate Powder Kayexcelate Powder, 30 grams, By Mouth, Daily, # 454 Gm, Refills 1, Tot. Refills 1, Maintenance, Mix 8 level teaspoons in water or apple juice & drink by mouth today & tomorrow, 04/19/20 15:08:00 EDT, Pt to hand picker 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 Start Date: 04/19/20 Stop Date: 06/18/20 Status: Ordered Lantus Solostar Pen 100 units/mL subcutaneous solution = 35 units, Subcutaneous Injection, Daily at bedtime, # 12 mL, 11 Refills, Maintenance, 01/18/22 14:50:00 EDT, [facility] #[id number], 167.64, cm, 01/09/22 13:27:00 EDT, Height, 63.7, kg, 01/30/21 22:32:00 EDT, Dry Weight Start Date: 01/18/22 Status: Ordered levothyroxine 0.025 mg oral tablet 1.5 tablet = 37.5 mcg, By Mouth, Daily, You are due for thyroid lab work. Go to the lab, # 45 tablet, 0 Refills, Maintenance, 01/18/22 14:50:00 EDT, Tablet, [facility] #[id number], 167.64, cm, 01/09/22 13:27:00 EDT, Height, 63.7, kg, 01/30/21 22:... Start Date: 01/18/22 Status: Ordered Pen [place], 31 G x 5 mm BD Ultra Fine III See Instructions, # 100 each, Refills 3, Tot. Refills 3, Maintenance, use as directed for Type 1 Diabetes Mellitus, 07/20/18 14:11:38 EDT, Compound Start Date: 07/20/18 Stop Date: 07/15/19 Status: Ordered [place] 16.8 g oral powder for reconstitution = 16.8 Gm, By Mouth, 2 times a day, # 60 pack/packet, 1 Refills, Maintenance, 06/21/20 16:51:00 EDT, [facility], Deliver to pt in clinic 05/31/20, 167.64, cm, 06/21/20 8:47:00 EDT, Height, 70, kg, 04/11/20 15:19:00 EDT, Dry Weight Start Date: 06/21/20 Stop Date: 08/20/20 Status: Ordered Problem List Condition Effective Dates Status Health Status Inform ant Diabetes mellitus(Confirmed) Active Hearing loss(Confirmed) 1 Active -donor kidney transp lant recipient(Confirmed) 2 04/11/20 Active Hyperkalemia(Confirmed) Active HTN (hypertension)(Confirmed) Active Lower back pain(Confirmed) Active ADAM (obstructive sleep apnea)(Confirmed) Active N Care Management [facility] , Vernell Rui [phone](Confirmed) Active Subclinical hypothyroidism(Confirmed) Active 1Weighed 1.5 pounds at . 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
--- OUTSIDE RECORDS SUMMARY | 2023-06-19 12:37 | XMS_ITS | Continuity of Care Document ---
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 Name Role Phone Arleen Coopre MD Primary Care Physician [phone] Encounter [facility] Date(s): 04/03/20 - 05/03/20 [place] [address]- [facility] Attending Physician: Enid Maharaj Admitting Physician: AdmtrEnid Referring Physician: Admtr, Enid Allergies, Adverse Reactions, Alerts Substance Reaction Severity Status ibuprofen decreased kidney function Ac tive aspirin decresed kidney function Act nina Toradol 1 decreased kidney function Ac tive Robaxin itching Active Valium difficulty breathing Active Vicodin itching Active 1Pt states he is not allergic to this medication Immunizations Given and Recorded Vaccine Date Status Refusal Reason influenza virus vaccine, inactivated 06/30/19 Give n influenza virus vaccine, inactivated 07/16/15 Give n influenza virus vaccine, inactivated 08/10/14 Give n hepatitis B adult vaccine 07/16/15 Given hepatitis B adult vaccine 05/14/15 Given hepatitis B adult vaccine 04/12/15 Given pneumococcal 23-valent vaccine 11/09/14 Given tetanus/diphtheria/pertussis, acel(Tdap) 11/09/14 Given tetanus-diphtheria toxoids (Td) 1 11/27/11 Given Influenza Inactive (IM) (oldterm) 2 11/27/11 Given 1Admin Note: vis 08/15/08 2Admin Note: vis Medications amLODIPine 10 mg oral tablet 10 mg, 1, tablet, By Mouth, Daily, Refills 0, Maintenance, 02/16/20 11:50:00 EDT Start Date: 02/16/20 Status: Ordered Bactrim 400 mg-80 mg oral tablet 1 tablet, By Mouth, Daily, # 30 tablet, 4 Refills, Acute 09/30/20 9:23:00 EST, 04/30/20 9:21:00 EDT, Tablet, [facility], 1 tablet By Mouth Daily, 167.64, cm, 04/30/20 8:23:00 EDT, Height, 70, kg, 04/11/20 15:19:00 EDT, Dry Weight Start Date: 04/30/20 Stop Date: 09/30/20 Status: Ordered Bactrim 400 mg-80 mg oral tablet 1 tablet, By Mouth, Daily, # 30 tablet, 0 Refills, Acute 05/14/20 12:35:00 EDT, 04/12/20 12:33:00 EDT, Tablet, [facility], 1 tablet By Mouth Daily, 167.64, cm, 04/12/20 4:21:00 EDT, Height, 70, kg, 04/11/20 15:19:00 EDT, Dry Weight Start Date: 04/12/20 Stop Date: 05/14/20 Status: Ordered Blood Pressure Monitor Blood Pressure Monitor, See Instructions, # 1 each, Refills 0, Tot. Refills 0, Maintenance, to be used to check BP daily, Dx: HTN med monitoring on amlodipine hydralazine, 02/16/20 17:20:00 EDT, Supply Start Date: 02/16/20 Status: Ordered carvedilol 25 mg oral tablet 25 mg, By Mouth, 2 times a day, Refills 0, Maintenance, 05/23/18 11:49:25 EDT Start Date: 05/23/18 Status: Ordered clotrimazole 10 mg oral lozenge 10 mg, 1, lozenge, By Mouth, 3 times a day, # 90 lozenge, Refills 1, Tot. Refills 1, Acute :23:00 EDT, 04/30/20 9:22:00 EDT, Route to Pharmacy Electronically, [facility], 167.64, cm, 04/30/20 8:23:00 EDT, Height, 70, kg, 07/... Start Date: 04/30/20 Stop Date: 06/30/20 Status: Ordered clotrimazole 10 mg oral lozenge 10 mg, 1, lozenge, By Mouth, 3 times a day, sfter meals, # 90 lozenge, Refills 0, Tot. Refills 0, Acute 05/14/20 12:35:00 EDT, 04/12/20 12:33:00 EDT, Route to Pharmacy Electronically, [facility], 167.64, cm, 04/12/20 4:21:00 EDT, Heig... Start Date: 04/12/20 Stop Date: 05/14/20 Status: Ordered docusate sodium 100 mg oral capsule 100 mg, 1, capsule, By Mouth, 3 times a day, PRN, # 90 capsule, Refills 0, Tot. Refills 0, Maintenance, for constipation, 04/12/20 12:34:00 EDT, Route to Pharmacy Electronically, [facility], 167.64, cm, 04/12/20 4:21:00 EDT, Height, 7... Start Date: 04/12/20 Status: Ordered Envarsus XR 1 mg oral tablet, extended release 8 tablet = 8 mg, By Mouth, Daily in AM, # 240 tablet, 11 Refills, Maintenance, 04/30/20 9:22:00 EDT, [facility], 167.64, cm, 04/30/20 8:23:00 EDT, Height, 70, kg, 04/11/20 15:19:00 EDT, Dry Weight Start Date: 04/30/20 Status: Ordered Envarsus XR 1 mg oral tablet, extended release 8 tablet = 8 mg, By Mouth, Daily in AM, # 240 tablet, 0 Refills, Maintenance, 04/12/20 12:33:00 EDT, [facility], 167.64, cm, 04/12/20 4:21:00 EDT, Height, 70, kg, 04/11/20 15:19:00 EDT, Dry Weight Start Date: 04/12/20 Status: Ordered Freestyle Lite Test Strips See Instructions, # 100 each, Refills 11, Tot. Refills 11, Maintenance, use to check BG BID for dx:E11.65, 04/17/20 16:31:00 EDT, Supply, 167.64, cm, 04/16/20 8:56:00 EDT, Height, 70, kg, 04/11/20 15:19:00 EDT, Dry Weight Start Date: 04/17/20 Status: Ordered HydrALAZINE = 50 mg, By Mouth, 3 times a day, 0 Refills, Maintenance, 09/24/19 14:48:00 EST Start Date: 09/24/19 Status: Ordered Kayexcelate Powder Kayexcelate Powder, 30 grams, By Mouth, Daily, # 454 Gm, Refills 1, Tot. Refills 1, Maintenance, Mix 8 level teaspoons in water or apple juice & drink by mouth today & tomorrow, 04/19/20 15:08:00 EDT, Pt to burr picker 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 Start Date: 04/19/20 Stop Date: 06/18/20 Status: Ordered Lantus Solostar Pen 100 units/mL subcutaneous solution = 30 units, Subcutaneous Injection, Daily at bedtime, # 10 mL, 11 Refills, Maintenance, 04/17/20 16:49:00 EDT, [facility] #[id number], 167.64, cm, 04/16/20 8:56:00 EDT, Height, 70, kg, 04/11/20 15:19:00 EDT, Dry Weight Start Date: 04/17/20 Status: Ordered levothyroxine 0.025 mg oral tablet 1.5 tablet = 37.5 mcg, By Mouth, Daily, # 45 tablet, 11 Refills, Maintenance, 04/18/20 17:51:00 EDT, Tablet, [facility] #[id number], 167.64, cm, 04/16/20 8:56:00 EDT, Height, 70, kg, 04/11/20 15:19:00 EDT, Dry Weight Start Date: 04/18/20 Status: Ordered NIFEdipine 60 mg oral tablet, extended release 60 mg, 1, tablet, By Mouth, Daily, # 30 tablet, Refills 0, Tot. Refills 0, Maintenance, 04/14/20 16:03:00 EDT, Route to Pharmacy Electronically, [facility], 167.64, cm, 04/14/20 15:37:00 EDT, Height, 70, kg, 04/11/20 15:19:00 EDT, Dry We... Start Date: 04/14/20 Status: Ordered Pen Jay, 31 G x 5 mm BD Ultra Fine III See Instructions, # 100 each, Refills 3, Tot. Refills 3, Maintenance, use as directed for Type 1 Diabetes Mellitus, 07/20/18 14:11:38 EDT, Compound Start Date: 07/20/18 Stop Date: 07/15/19 Status: Ordered Senna 8.6 mg oral tablet 8.6 mg, 1, tablet, By Mouth, Daily at bedtime, # 30 tablet, Refills 0, Tot. Refills 0, Acute, 05/14/20 12:34:00 EDT, 04/12/20 12:34:00 EDT, Route to Pharmacy Electronically, [facility], 167.64, cm, 04/12/20 4:21:00 EDT, Height, 70, kg... Start Date: 04/12/20 Stop Date: 05/14/20 Status: Ordered valganciclovir 450 mg oral tablet 450 mg, 1, tablet, By Mouth, Daily, # 30 tablet, Refills 4, Tot. Refills 4, Acute 09/30/20 9:23:00 EST, 04/30/20 9:22:00 EDT, Route to Pharmacy Electronically, [facility], 167.64, cm, 04/30/20 8:23:00 EDT, Height, 70, kg, 04/11/20 15:... Start Date: 04/30/20 Stop Date: 09/30/20 Status: Ordered valganciclovir 450 mg oral tablet 450 mg, 1, tablet, By Mouth, Daily, # 30 tablet, Refills 0, Tot. Refills 0, Acute 05/14/20 12:35:00EDT, 04/12/20 12:33:00 EDT, Route to Pharmacy Electronically, [facility], 167.64, cm, 04/12/20 4:21:00 EDT, Height, 70, kg, 04/11/20 1... Start Date: 04/12/20 Stop Date: 05/14/20 Status: Ordered Problem List Condition Effective Dates Status Health Status Inform ant ESRD on hemodialysis(Confirmed) Active Diabetes mellitus(Confirmed) Active Hearing loss(Confirmed) 1 Active HTN (hypertension)(Confirmed) Active ADAM (obstructive sleep apnea)(Confirmed) Active Care Management [facility] , Diann Ambrocioman [phone](Confirmed) Active Subclinical hypothyroidism(Confirmed) Active 1Weighed 1.5 pounds at . 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
--- OUTSIDE RECORDS SUMMARY | 2023-06-19 12:37 | XMS_ITS | Continuity of Care Document ---
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 Attending Physician: Not on Staff, Attending MD Referring Physician: Arleen Cooper MD Allergies, Adverse Reactions, Alerts Substance Reaction Severity Status ibuprofen decreased kidney function Ac tive aspirin decresed kidney function Act nina Toradol 1 decreased kidney function Ac tive Robaxin itching Active Valium difficulty breathing Active Vicodin itching Active 1Pt states he is not allergic to this medication Immunizations Given and Recorded Vaccine Date Status Refusal Reason pneumococcal 13-valent vaccine 04/04/21 Given SARS-CoV-2 (COVID-19) mRNA BNT-162b2 vac 01/14/21 Recorded SARS-CoV-2 (COVID-19) mRNA BNT-162b2 vac 12/22/20 Recorded influenza virus vaccine, inactivated 07/12/20 Darrick rded [...] 02/18/21 16:31:00 EDT, Route to Pharmacy Electronically, [facility] #[id number], Partial fill upon patientrequest if the prescription is for a schedule II op... Start Date: 02/18/21 Stop Date: 08/17/21 Status: Ordered B-D PEN NDL SHRT [id number](02/10) COOPER B-D PEN NDL SHRT [id number](02/10) COOPER, See Instructions, # 100 each, 0 [...] 07/18/20 11:05:00 EDT, Route to Pharmacy Electronically, [facility], 167.64, cm, 07/12/20 8:38:00 EDT, Height, 70, kg, 04/11/20 15:19:00... Start Date: 07/18/20 Stop Date: 08/17/20 Status: Ordered Envarsus XR 1 mg oral tablet, extended release 4 tablet = 4 mg, By Mouth, Daily in AM, # 240 tablet, 0 Refills, Maintenance, 04/12/20 12:33:00 EDT, [facility], 167.64, cm, 04/12/20 4:21:00 EDT, Height, 70, kg, 04/11/20 15:19:00 EDT, Dry Weight Start Date: 04/12/20 Status: Ordered Freestyle Lite Lancets See Instructions, # 100 each, Refills 11, Tot. Refills 11, Maintenance, use to check BG BID for dx:Type 2 Diabetes Mellitus, 07/12/20 13:48:00 EDT, Supply, 167.64, cm, 07/12/20 8:38:00 EDT, Height, 70, kg, 04/11/20 15:19:00 EDT, Dry Weight Start Date: 07/12/20 Status: Ordered Freestyle Lite Monitor See Instructions, [...] Dry Weight Start Date: 04/29/21 Status: Ordered Kayexcelate Powder Kayexcelate Powder, 30 grams, By Mouth, Daily, # 454 Gm, Refills 1, Tot. Refills 1, Maintenance, Mix 8 level teaspoons in water or apple juice & drink by mouth today & tomorrow, 04/19/20 15:08:00 EDT, Pt to spanish moss picker 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 Start Date: 04/19/20 Stop Date: 06/18/20 Status: Ordered Lantus Solostar Pen 100 units/mL subcutaneous solution = 35 units, Subcutaneous Injection, Daily at bedtime, # 12 mL, 11 Refills, Maintenance, 03/12/21 16:28:00 EDT, [facility] #[id number], 167.64, cm, 02/28/21 10:34:00 EDT, Height, 63.7, kg, 01/30/21 22:32:00 EDT, Dry Weight Start Date: 03/12/21 Status: Ordered levothyroxine 0.025 mg oral tablet 1.5 tablet = 37.5 mcg, By Mouth, Daily, # 135 tablet, 0 Refills, Maintenance, 03/27/21 10:58:00 EDT, Tablet, [facility], 167.64, cm, 02/28/21 10:34:00 EDT, Height, 63.7, kg, 01/30/2122:32:00 EDT, Dry Weight Start Date: 03/27/21 Status: Ordered Pen Lyles, 31 G x 5 mm BD Ultra [...] pack/packet, 1 Refills, Maintenance, 06/21/20 16:51:00 EDT, [facility], Deliver to pt in clinic 05/31/20, 167.64, cm, 06/21/20 8:47:00 EDT, Height, 70, kg, 04/11/20 15:19:00 EDT, Dry Weight Start Date: 06/21/20 Stop Date: 08/20/20 Status: Ordered Problem List Condition Effective Dates Status Health Status Inform ant Diabetes mellitus(Confirmed) Active Hearing loss(Confirmed) 1 Active -donor kidney transp lant recipient(Confirmed) 2 04/11/20 Active Hyperkalemia(Confirmed) Active HTN (hypertension)(Confirmed) Active ADAM (obstructive sleep apnea)(Confirmed) Active Care Management [facility] Sarah (Confirmed) Active Subclinical hypothyroidism(Confirmed) Active 1Weighed 1.5 pounds at . 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
--- OUTSIDE RECORDS SUMMARY | 2023-06-19 12:37 | XMS_ITS | Continuity of Care Document ---
Author Name Unknown Organization [facility] Address [address] [place] [id number]- Care Team Providers Care Rejector Name Role Phone Arleen Cooper MD Primary Care Physician [id number] Date(s): 05/08/22 - 07/12/[address] [address] Attending Physician: Newton Goodwin MD Admitting Physician: Newton Goodwin MD Allergies, Adverse Reactions, Alerts Substance Reaction [...] Note: vis 08/15/08 2Admin Note: vis Medications B-D PEN NDL SHRT [id number](02/10) COOPER B-D PEN NDL SHRT [id number](02/10) COOPER, See Instructions, # 100 each, 0 [...] Weight Start Date: 06/29/22 Status: Ordered gabapentin 300 mg oral capsule 300 mg, 1, capsule, By Mouth, 3 times a day, # 90 capsule, Refills 0, Tot. Refills 0, Maintenance, 01/23/22 16:09:00 EDT, Route to Pharmacy Electronically, [facility] #[id number], Partial fill upon patient request if the prescription is for a jana... Start Date: 01/23/22 Status: Ordered insulin glargine (concentrated) 300 units/mL subcutaneous solution See Instructions, 18 units s/c at bedtime, # 12 mL, 2 Refills, Maintenance, 06/29/22 11:32:00 EDT, Solution, [facility] #[id number], Partial fill upon patient request if the prescription is for a schedule II opioid drug., 167, cm, 06/29/22 8:48:0... Start Date: 06/29/22 Status: Ordered insulin lispro (concentrated) 200 units/mL subcutaneous solution See Instructions, 3 units Subcutaneous Infusion for FSBS of every 100 and 1 unit additional for every 40 above 100, # 12 mL, 3 Refills, Maintenance, 06/29/22 14:22:00 EDT, [facility] #[id number], Partial fill upon patient request if the prescript... Start Date: 06/29/22 Status: Ordered levothyroxine 0.025 mg oral tablet 1.5 tablet, By Mouth, Daily, # 135 tablet, 0 Refills, [facility] #[id number], 167.64, cm, 01/23/22 11:51:00 EDT, Height, 63.7, kg, 01/30/21 22:32:00 EDT, Dry Weight Start Date: 03/27/22 Status: Ordered multivitamin Multiple Vitamins oral capsule 1 capsule, By Mouth, Daily, # 30 capsule, 0 Refills, Maintenance, 06/28/22 11:24:00 EDT, Capsule, [facility] #[id number], Partial fill upon patient request if the prescription is for a schedule II opioid drug., 1 capsule By Mouth Daily,x30 days,... Start Date: 06/28/22 Stop Date: 07/28/22 Status: Ordered mycophenolate mofetil 500 mg oral tablet = 1,500 mg, By Mouth, 2 times a day, # 180 tablet, 1 Refills, Maintenance, 06/28/22 11:24:00 EDT, Tablet, [facility] #[id number], Partial fill upon patient request if the prescription is for a schedule II opioid drug., 167, cm, 06/28/22 8:15:00 E... Start Date: 06/28/22 Stop Date: 08/27/22 Status: Ordered pantoprazole 40 mg oral delayed release tablet = 40 mg, By Mouth, Daily, # 30 tablet, 0 Refills, Maintenance, 06/28/22 11:25:00 EDT, [facility], 167, cm, 06/28/22 8:15:00 EDT, Height, 69.75, kg, 06/10/22 1:04:00 EDT, Dry Weight Start Date: 06/28/22 Stop Date: 07/28/22 Status: Ordered Pen [place], 31 G x 5 mm BD Ultra [...] 0 Refills, Maintenance, 06/28/22 11:25:00 EDT, Tablet, [facility] #[id number], Partial fill upon patient request if the prescription is for a schedule II opioid drug., 167, cm, 06/28/22 8:15:00 EDT,... Start Date: 06/28/22 Status: Ordered PROzac 20 mg oral capsule 20 mg, 1, capsule, By Mouth, Daily, # 30 capsule, Refills 0, Tot. Refills 0, Maintenance, 07/10/22 11:33:00 EDT, Route to Pharmacy Electronically, [facility] #[id number], Partial fill upon patient request if the prescription is for a schedule II... Start Date: 07/10/22 Stop Date: 08/09/22 Status: Ordered Renvela 800 mg oral tablet 1 tablet = 800 mg, By Mouth, 3 times a day with meals, # 90 tablet, 0 Refills, Maintenance, 06/28/22 11:25:00 EDT, Tablet, [facility] #[id number], Partial fill upon patient request if the prescription is for a schedule II opioid drug., 167, cm, 1... 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 Start Date: 07/10/22 Stop Date: 09/08/22 Status: Ordered tacrolimus 1 mg oral tablet, extended release = 7 mg, By Mouth, Daily in AM, Please take tacrolimus 7 mg PO daily in AM and f/u with nephrologistfor level monitoring and dose adjustment., # 210 tablet, 0 Refills, Maintenance, 07/10/22 12:57:00 EDT, XR Tablet, [facility] #[id number], Partial... Start Date: 07/10/22 Stop Date: 08/09/22 Status: Ordered valganciclovir 450 mg oral tablet 450 mg, 1, tablet, By Mouth, Every Thursday, Thursday and Thursday, # 12 tablet, Refills 1, Tot. Refills 1, Maintenance, 06/28/22 11:26:00 EDT, Route to Pharmacy Electronically, [facility] #[id number], Partial fill upon patient request if the prescr... Start Date: 06/28/22 Status: Ordered Problem List Condition Confirmation Course Effective Dates Status H ealth Status Informant Diabetes mellitus Confirmed Active Hearing loss 1 Confirmed Active -donor kidney transplant recipient 2 Confirmed 04/11/20 Active Hyperkalemia Confirmed Active HTN (hypertension) Confirmed Active Lower back pain Confirmed Active ADAM (obstructive sleep apnea) Confirmed Active N Care Management [facility], Vernell Rui [phone] Confirmed Active Subclinical hypothyroidism Confirmed Active 1Weighed 1.5 pounds at . 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
--- OUTSIDE RECORDS SUMMARY | 2023-06-19 12:37 | XMS_ITS | Continuity of Care Document ---
Author Name Unknown Organization [facility] Address [address] [place] [address]- Care Team Providers Care Personal Lines Account Executive Name Role Phone Kenneth CLARKE, Arleen Primary Care Physician Encounter [facility] [place] Date(s): 08/13/22 - 09/12/[address] [address]- Allergies, Adverse Reactions, Alerts Substance Reaction Severity Status ibuprofen decreased kidney function Ac tive aspirin decresed kidney function Act nina Toradol 1 decreased kidney function Ac tive Robaxin itching Active Valium difficulty breathing Active Vicodin itching Active 1Pt states he is not allergic to this medication Immunizations Given and Recorded Vaccine Date Status Refusal Reason [id number] 12y+ bivalent booster vax 1 07/17/22 Given [...] Note: vis Medications B-D PEN NDL SHRT [id number](02/10) COOPER B-D PEN NDL SHRT [id number](02/10) COOPER, See Instructions, # 100 each, 0 [...] EDT, Supply Start Date: 02/16/20 Status: Ordered cefepime 2 g intravenous injection = 2 Gm, IV Infusion, Once, During dialysis 08/01, # 1 each, 0 Refills, Soft Stop, 07/30/22 13:42:00 EDT, Partial fill upon patient request if the prescription is for a schedule II opioid drug. Start Date: 07/30/22 Status: Ordered free style sagar reader free style sagar reader, See Instructions, # 1 each, Refills 0, Tot. Refills 0, Maintenance, to be used to check BG up to 4 times a day dx: E 11.65. E11.22 YAMIL = lifetime, 07/25/22 12:13:00 EDT, Compound Start Date: 07/25/22 Status: Ordered Freestyle Sagar 14 day sensor kit Freestyle Sagar 14 day sensor kit, See Instructions, # 1 kit, Refills 6, Tot. Refills 6, Maintenance, use as directed for dx: E11.65, E11.22 Testing glucose over 4 times a day, with a1c greater than 7 despite adherence to regimen, 07/25/22 12:13:00 E... Start Date: 07/25/22 Status: Ordered FREESTYLE LITE BLOOD GLUCOSE STRIPS [...] Status: Ordered gabapentin 300 mg oral capsule 1, capsule, By Mouth, 3 times a day, # 90 capsule, Refills 0, Maintenance, 09/02/22 15:33:00 EST, Route to Pharmacy Electronically, [facility] #[id number], 168, cm, 07/30/22 15:53:00 EDT, Height, 60.2, kg, 07/24/22 0:30:00 EDT, Dry Weight Start Date: 09/02/22 Status: Ordered insulin glargine (concentrated) 300 units/mL subcutaneous solution See Instructions, 25 units s/c in the AM at the same time every day rotate injection sites, # 12 mL, 2 Refills, Maintenance, 06/29/22 11:32:00 EDT, Solution, [facility] #[id number], Partial fillupon patient request if the prescription is... Start Date: 06/29/22 Status: Ordered insulin lispro (concentrated) 200 units/mL subcutaneous solution See Instructions, 3 units Subcutaneous Infusion for FSBS of every 100 and 1 unit additional for every 40 above 100, # 12 mL, 3 Refills, Maintenance, 06/29/22 14:22:00 EDT, [facility] #[id number], Partial fill upon patient request if the prescript... Start Date: 06/29/22 Status: Ordered levothyroxine 0.025 mg oral tablet 1.5 tablet, By Mouth, Daily, # 135 tablet, 0 Refills, [facility] #[id number], 167.64, cm, 01/23/22 11:51:00 EDT, Height, 63.7, kg, 01/30/21 22:32:00 EDT, Dry Weight Start Date: 03/27/22 Status: Ordered multivitamin Multiple Vitamins oral capsule 1 capsule, By Mouth, Daily, # 30 capsule, 0 Refills, Maintenance, 09/04/22 11:03:00 EST, Capsule, [facility] #[id number], Partial fill upon patient request if the prescription is for a schedule II opioid drug., 1 capsule By Mouth Daily,x30 days,... Start Date: 09/04/22 Stop Date: 10/04/22 Status: Ordered Pen [place], 31 G x 5 mm BD Ultra [...] 0 Refills, Maintenance, 06/28/22 11:25:00 EDT, Tablet, [facility] #[id number], Partial fill upon patient request if the prescription is for a schedule II opioid drug., 167, cm, 06/28/22 8:15:00 EDT,... Start Date: 06/28/22 Status: Ordered PROzac 20 mg oral capsule 20 mg, 1, capsule, By Mouth, Daily, # 30 capsule, Refills 0, Tot. Refills 0, Maintenance, 09/04/22 11:03:00 EST, Route to Pharmacy Electronically, [facility] #[id number], Partial fill upon patient request if the prescription is for a schedule II... Start Date: 09/04/22 Stop Date: 10/04/22 Status: Ordered sevelamer carbonate 800 mg oral tablet 2 tablet = 1,600 mg, By Mouth, 3 times a day with meals, 0 Refills, Maintenance, 07/30/22 13:40:00 EDT, Tablet, Partial fill upon patient request if the prescription is for a schedule II opioid drug. Start Date: 07/30/22 Status: Ordered tacrolimus 1 mg oral tablet, extended release = 8 mg, By Mouth, Daily in AM, Please take tacrolimus 8 mg PO daily in AM and f/u with nephrologistfor level monitoring and dose adjustment., # 30 tablet, 0 Refills, Maintenance, 07/10/22 12:57:00 EDT, XR Tablet, [facility] #[id number], Partial... Start Date: 07/10/22 Stop Date: 08/09/22 Status: Ordered tamsulosin 0.4 mg oral capsule 0.4 mg, 1, capsule, By Mouth, Daily, # 30 capsule, Refills 0, Tot. Refills 0, Maintenance, :30:00 EDT, Route to Pharmacy Electronically, [facility] #[id number], Partial fill upon patient request if the prescription is for a schedule II... Start Date: 07/21/22 Status: Ordered valganciclovir 450 mg oral tablet 450 mg, 1, tablet, By Mouth, Every Thursday, Thursday and Thursday, # 26 tablet, Refills 1, Tot. Refills 1, Maintenance, 06/28/22 11:26:00 EDT, Route to Pharmacy Electronically, [facility] #[id number], Partial fill upon patient request if the [...] Active ADAM (obstructive sleep apnea) Confirmed Active [facility] Care Management [facility], Vernell Rui [phone] Confirmed Active Subclinical hypothyroidism Confirmed Active 1Weighed 1.5 pounds at . 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 Social History Social History Type Response Smoking Status Never smoker; Tobacc o user in household: No entered on: 09/12/15 Sex Patient Care team information Care Team Personnel Name: Desmond Anton RN Position: [facility] RN Member Role: Primary Care Nurse Name: Eliza Ch RN Position: [facility] RN Member Role: Primary Care Nurse Name: Izzy Cooper Position: [facility] RN Member Role: Primary Care Nurse Name: Elie Alex MD Position: [facility] Renal MD Member Role: Lifetime Consulting Physician Address: Address: [address] [place] [address], [address] [facility] [address] Name: Rayray Brand Position: [facility] Physician (General Medicine) Member Role: Primary Care Nurse Name: Liudmila Hinds Position: [facility] RN Member Role: Primary Care Nurse Name: Kannan Gibbs RN Position: [facility] RN Member Role: Primary Care Nurse Name: Chase Brumfield RN Position: [facility] ED RN W/OE and Tasks Member Role: Primary Care Nurse Name: Sissy Powers RN Position: [facility] RN Member Role: Primary Care Nurse Name: Link Stein RN Position: [facility] RN Supv Member Role: Primary Care Nurse Name: Isai Weaver DO Position: [facility] Renal MD Member Role: Lifetime Consulting Physician Address: Address: [address] [place], [place] [address] [place] [address]- Name: Lor Abdullahi RN Position: [facility] RN Member Role: Primary Care Nurse Name: Charity Billings RN Position: [facility] RN Member Role: Primary Care Nurse Name: Trae Hawkins III, RN Position: [facility] RN Member Role: Primary Care Nurse Name: Geoffrey Davis RN Position: [facility] RN Member Role: Primary Care Nurse Name: Yamini Soares Position: [facility] RN Member Role: Primary Care Nurse Name: Marcus Ardon RN Position: [facility] RN Member Role: Primary Care Nurse Name: Jaison Sherwood MD Position: [facility] Renal MD Member Role: Lifetime Consulting Physician Address: Address: [address] [place] [address] [address] [facility] [place] [address]- Name: Anna White RN Position: [facility] AMB Nurse Member Role: Primary Care Nurse Name: Marleny Sanchez RN Position: [facility] RN Member Role: Primary Care Nurse Name: Gabriel Chappell MD Position: [facility] Renal MD Member Role: Lifetime Consulting Physician Address: Address: [address] [place] [address] [facility] [place] [address]- Name: Muriel Page RN Position: [facility] SN RN Member Role: Primary Care Nurse Name: Marielena Sheehan RN Position: [facility] RN Member Role: Primary Care Nurse Name: Nadia Hernandez RN Position: [facility] RN Member Role: Primary Care Nurse Name: Alyssa Nguyen RN Position: [facility] RN Member Role: Primary Care Nurse Name: Елена Jules RN Position: [facility] RN Member Role: Primary Care Nurse Name: Arleen Cooper MD Position: [facility] Primary Care Physician Member Role: PCP Address: Address: [address] [place] [id number]- [place] Care Team Related Persons Name: CAMI ELIAS Address: home [address] [place] [address] Name: HERMILO APNDA Address: home [address] [address] Name: JACK PANDA Address: home [address] [place] [address]
--- OUTSIDE RECORDS SUMMARY | 2023-06-19 12:37 | XMS_ITS | Continuity of Care Document ---
Author Name Unknown Organization [facility] Address [address] [place] [id number]- Care Team Providers Care Gliding Pilot Instructor Name Role Phone Kenneth CLARKE, Arleen Primary Care Physician [place] [facility] [facility] [place]17[place]20 - 05/17/20 [facility] [address] [place] [address]- [facility] Allergies, Adverse Reactions, Alerts Substance Reaction Severity [...] 09/30/20 9:23:00 EST, 04/30/20 9:21:00 EDT, Tablet, [facility], 1 tablet By Mouth Daily, 167.64, cm, 04/30/20 8:23:00 EDT, Height, 70, kg, 04/11/20 15:19:00 EDT, Dry Weight Start Date: 04/30/20 Stop Date: 09/30/20 Status: Ordered Blood Pressure Monitor Blood Pressure [...] 04/30/20 9:22:00 EDT, Route to Pharmacy Electronically, [facility], 167.64, cm, 04/30/20 8:23:00 EDT, Height, 70, kg, ... Start Date: 04/30/20 Stop Date: 06/30/20 Status: Ordered docusate sodium 100 mg oral capsule 100 mg, 1, capsule, By Mouth, 3 times a day, PRN, # 90 capsule, Refills 0, Tot. Refills 0, Maintenance, for constipation, 04/12/20 12:34:00 EDT, Route to Pharmacy Electronically, [facility], 167.64, cm, 04/12/20 4:21:00 EDT, Height, 7... Start Date: 04/12/20 Status: Ordered Envarsus XR 1 mg oral tablet, extended release 8 tablet = 8 mg, By Mouth, Daily in AM, # 240 tablet, 11 Refills, Maintenance, 04/30/20 9:22:00 EDT, [facility], 167.64, cm, 04/30/20 8:23:00 EDT, Height, 70, kg, 04/11/20 15:19:00 EDT, Dry Weight Start Date: 04/30/20 Status: Ordered Envarsus XR 1 mg oral tablet, extended release 8 tablet = 8 mg, By Mouth, Daily in AM, # 240 tablet, 0 Refills, Maintenance, 04/12/20 12:33:00 EDT, [facility], 167.64, cm, 04/12/20 4:21:00 [...] & tomorrow, 04/19/20 15:08:00 EDT, 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 Start Date: 04/19/20 Stop Date: 06/18/20 Status: Ordered Lantus Solostar Pen 100 units/mL subcutaneous solution = 30 units, Subcutaneous Injection, Daily at bedtime, # 10 mL, 11 Refills, Maintenance, 04/17/20 16:49:00 EDT, [facility] #[id number], 167.64, cm, 04/16/20 8:56:00 EDT, Height, 70, kg, 04/11/20 15:19:00 EDT, Dry Weight Start Date: 04/17/20 Status: Ordered levothyroxine 0.025 mg oral tablet 1.5 tablet = 37.5 mcg, By Mouth, Daily, # 45 tablet, 11 Refills, Maintenance, 04/18/20 17:51:00 EDT, Tablet, [facility] #[id number], 167.64, cm, 04/16/20 8:56:00 EDT, Height, 70, kg, 04/11/20 15:19:00 EDT, Dry Weight Start Date: 04/18/20 Status: Ordered NIFEdipine 60 mg oral tablet, extended release 60 mg, 1, tablet, By Mouth, Daily, # 30 tablet, Refills 0, Tot. Refills 0, Maintenance, 04/14/20 16:03:00 EDT, Route to Pharmacy Electronically, [place] [address], 167.64, cm, 04/14/20 15:37:00 EDT, Height, 70, kg, 04/11/20 15:19:00 EDT, Dry We... Start Date: 04/14/20 Status: Ordered Pen [place], 31 G x 5 mm BD Ultra Fine III See Instructions, # 100 each, Refills 3, Tot. Refills 3, Maintenance, use as directed for Type 1 Diabetes Mellitus, 07/20/18 14:11:38 EDT, Compound Start Date: 07/20/18 Stop Date: 07/15/19 Status: Ordered valganciclovir 450 mg oral tablet 450 mg, 1, tablet, By Mouth, Daily, # 30 tablet, Refills 4, Tot. Refills 4, Acute 09/30/20 9:23:00 EST, 04/30/20 9:22:00 EDT, Route to Pharmacy Electronically, [facility], 167.64, cm, 04/30/20 8:23:00 EDT, Height, 70, kg, 04/11/20 15:... Start Date: 04/30/20 Stop Date: 09/30/20 Status: Ordered Problem List Condition Effective Dates Status Health Status Inform ant ESRD on hemodialysis(Confirmed) Active Diabetes mellitus(Confirmed) Active Hearing loss(Confirmed) 1 Active HTN (hypertension)(Confirmed) Active ADAM (obstructive sleep apnea)(Confirmed) Active Care Management [facility] , Sarah Gabriel (Confirmed) Active Subclinical hypothyroidism(Confirmed) Active 1Weighed 1.5 pounds at . 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
--- OUTSIDE RECORDS SUMMARY | 2023-06-19 12:38 | XMS_ITS | Continuity of Care Document ---
Author Name Unknown Organization [facility] Address [address] [place] [address]- Care Team Providers Care Carpet Sewer Name Role Phone Kenneth CLARKE, Arleen Primary Care Physician [phone] Encounter [facility] [place]s): 11/05/20 - 12/05/[address] [address] Attending Physician: Enid Maharaj Admitting Physician: AdmtrEnid Referring Physician: Admjessie, Enid Allergies, Adverse Reactions, Alerts Substance Reaction Severity Status ibuprofen decreased kidney function Ac tive aspirin decresed kidney function Act nina Toradol 1 decreased kidney function Ac tive Robaxin itching Active Valium difficulty breathing Active Vicodin itching Active 1Pt states he is not allergic to this medication Immunizations Given and Recorded Vaccine Date Status Refusal Reason influenza virus vaccine, inactivated 07/12/20 Darrick rded [...] Note: vis 08/15/08 2Admin Note: vis Medications Blood Pressure Monitor Blood Pressure Monitor, See [...] 07/18/20 11:05:00 EDT, Route to Pharmacy Electronically, [facility], 167.64, cm, 07/12/20 8:38:00 EDT, Height, 70, kg, 04/11/20 15:19:00... Start Date: 07/18/20 Stop Date: 08/17/20 Status: Ordered Envarsus XR 1 mg oral tablet, extended release 8 tablet = 8 mg, By Mouth, Daily in AM, # 240 tablet, 11 Refills, Maintenance, 04/30/20 9:22:00 EDT, [facility], 167.64, cm, 04/30/20 8:23:00 EDT, Height, 70, kg, 04/11/20 15:19:00 EDT, Dry Weight Start Date: 04/30/20 Status: Ordered Envarsus XR 1 mg oral tablet, extended release 4 tablet = 4 mg, By Mouth, Daily in AM, # 240 tablet, 0 Refills, Maintenance, 04/12/20 12:33:00 EDT, [facility], 167.64, cm, 04/12/20 4:21:00 EDT, [...] Dry Weight Start Date: 04/17/20 Status: Ordered Kayexcelate Powder Kayexcelate Powder, 30 grams, By Mouth, Daily, # 454 Gm, Refills 1, Tot. 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 Start Date: 04/19/20 Stop Date: 06/18/20 Status: Ordered Lantus Solostar Pen 100 units/mL subcutaneous solution = 30 units, Subcutaneous Injection, Daily at bedtime, # 10 mL, 11 Refills, Maintenance, 04/17/20 16:49:00 EDT, [facility] #[id number], 167.64, cm, 04/16/20 8:56:00 EDT, Height, 70, kg, 04/11/20 15:19:00 EDT, Dry Weight Start Date: 04/17/20 Status: Ordered levothyroxine 0.025 mg oral tablet 1.5 tablet = 37.5 mcg, By Mouth, Daily, # 45 tablet, 11 Refills, Maintenance, 04/18/20 17:51:00 EDT, Tablet, [facility] #[id number], 167.64, cm, 04/16/20 8:56:00 EDT, Height, 70, kg, 04/11/20 15:19:00 EDT, Dry Weight Start Date: 04/18/20 Status: Ordered Pen [place], 31 G x 5 mm BD Ultra [...] pack/packet, 1 Refills, Maintenance, 06/21/20 16:51:00 EDT, [facility], Deliver to pt in clinic 05/31/20, 167.64, cm, 06/21/20 8:47:00 EDT, Height, 70, kg, 04/11/20 15:19:00 EDT, Dry Weight Start Date: 06/21/20 Stop Date: 08/20/20 Status: Ordered Problem List Condition Effective Dates Status Health Status Inform ant ESRD on hemodialysis(Confirmed) Active Diabetes mellitus(Confirmed) Active Hearing loss(Confirmed) 1 Active -donor kidney transp lant recipient(Confirmed) 2 04/11/20 Active HTN (hypertension)(Confirmed) Active ADAM (obstructive sleep apnea)(Confirmed) Active Care Management [facility] , Sarah Gabriel (Confirmed) Active Subclinical hypothyroidism(Confirmed) Active 1Weighed 1.5 pounds at . 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
--- OUTSIDE RECORDS SUMMARY | 2023-06-19 12:38 | XMS_ITS | Continuity of Care Document ---
Author Name Unknown Organization [facility] Address [address] [place] [address]- Care Team Providers Care Etcher Aircraft Name Role Phone Arleen Cooper MD Primary Care Physician [phone] Encounter [facility] [place] Date(s): 03/15/20 - 04/14/[address] [address]- [facility] Attending Physician: Admtr, Ar8 Admitting Physician: Admtr, Ar8 Referring Physician: Admtr, Ar8 Allergies, Adverse Reactions, Alerts Substance Reaction Severity [...] Note: vis 08/15/08 2Admin Note: vis Medications acetaminophen 325 mg oral tablet 650 mg, By Mouth, Every 4 hours, PRN, for 5 days, # 60 tablet, Refills 0, Tot. Refills 0, Acute 04/18/20 16:35:00 EDT, Pain , Mild, 04/13/20 16:35:00 EDT, Route to Pharmacy Electronically, [facility], 167.64, cm, 04/13/20 11:46:00 EDT, H... Start Date: 04/13/20 Stop Date: 04/18/20 Status: Ordered amLODIPine 10 mg oral tablet 10 mg, 1, tablet, By Mouth, Daily, Refills 0, Maintenance, 02/16/20 11:50:00 EDT Start Date: 02/16/20 Status: Ordered Bactrim 400 mg-80 mg oral tablet 1 tablet, By Mouth, Daily, # 30 tablet, 0 Refills, Acute 05/14/20 12:35:00 EDT, 04/12/20 12:33:00 EDT, Tablet, [facility], 1 tablet By Mouth Daily, 167.64, [...] 12:33:00 EDT, Route to Pharmacy Electronically, [facility], 167.64, cm, 04/12/20 4:21:00 EDT, [place]... Start Date: 04/12/20 Stop Date: 05/14/20 Status: Ordered docusate sodium 100 mg oral capsule 100 mg, 1, capsule, By Mouth, 3 times a day, PRN, # 90 capsule, Refills 0, Tot. Refills 0, Maintenance, for constipation, 04/12/20 12:34:00 EDT, Route to Pharmacy Electronically, [facility], 167.64, cm, 04/12/20 4:21:00 EDT, Height, 7... Start Date: 04/12/20 Status: Ordered Envarsus XR 1 mg oral tablet, extended release 8 tablet = 8 mg, By Mouth, Daily in AM, # 240 tablet, 0 Refills, Maintenance, 04/12/20 12:33:00 EDT, [facility], 167.64, cm, 04/12/20 4:21:00 EDT, Height, 70, kg, 04/11/20 15:19:00 EDT, Dry Weight Start Date: 04/12/20 Status: Ordered HydrALAZINE = 50 mg, By Mouth, 3 times a day, 0 Refills, Maintenance, 09/24/19 14:48:00 EST Start Date: 09/24/19 Status: Ordered Lantus Inj = 30 units, Subcutaneous Injection, Daily at bedtime, 0 Refills, Maintenance, 09/24/19 14:49:00 EST, Injection Start Date: 09/24/19 Status: Ordered levothyroxine 0.025 mg oral tablet 1.5 tablet = 37.5 mcg, By Mouth, Daily, # 45 tablet, 2 Refills, Maintenance, 09/27/19 12:25:00 EST,Tablet, [facility] #[id number], 168, cm, 09/27/19 11:17:00 EST, Height, 70, kg, 09/24/19 17:59:00 EST, Dry Weight Start Date: 09/27/19 Status: Ordered NIFEdipine 60 mg oral tablet, extended release 60 mg, 1, tablet, By Mouth, Daily, # 30 tablet, Refills 0, Tot. Refills 0, Maintenance, 04/14/20 16:03:00 EDT, Route to Pharmacy Electronically, [facility], 167.64, cm, 04/14/20 15:37:00 EDT, Height, 70, kg, 04/11/20 15:19:00 EDT, Dry We... Start Date: 04/14/20 Status: Ordered oxyCODONE 5 mg oral tablet 5 mg, 1, tablet, By Mouth, Every 4 hours, PRN, for 3 days, # 12 tablet, Refills 0, Tot. Refills 0, Acute 04/16/20 16:35:00 EDT, Pain , Severe, 04/13/20 16:35:00 EDT, Route to Pharmacy Electronically,[facility], Partial fill upon patient... Start Date: 04/13/20 Stop Date: 04/16/20 Status: Ordered Pen [place], 31 G x 5 mm BD Ultra [...] 12:34:00 EDT, Route to Pharmacy Electronically, [facility], 167.64, cm, 04/12/20 4:21:00 EDT, Height, 70, kg... Start Date: 04/12/20 Stop Date: 05/14/20 Status: Ordered valganciclovir 450 mg oral tablet 450 mg, 1, tablet, By Mouth, Daily, # 30 tablet, Refills 0, Tot. Refills 0, Acute 05/14/20 12:35:00EDT, 04/12/20 12:33:00 EDT, Route to Pharmacy Electronically, [facility], 167.64, cm, 04/12/20 4:21:00 EDT, Height, 70, kg, 04/11/20 1... Start Date: 04/12/20 Stop Date: 05/14/20 Status: Ordered Problem List Condition Effective Dates Status Health Status Inform ant ESRD on hemodialysis(Confirmed) Active Diabetes mellitus(Confirmed) Active Hearing loss(Confirmed) 1 Active HTN (hypertension)(Confirmed) Active ADAM (obstructive sleep apnea)(Confirmed) Active Care Management [facility] Diann [phone](Confirmed) Active Subclinical hypothyroidism(Confirmed) Active 1Weighed 1.5 pounds at . 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
--- OUTSIDE RECORDS SUMMARY | 2023-06-19 12:38 | XMS_ITS | Continuity of Care Document ---
Author Name Unknown Organization [facility] Address [address] [place] [id number]- Care Team Providers Care Lathe Set Up Person Name Role Phone Arleen Cooper MD Primary Care Physician [phone] [place] [facility] [place] - 09/21/[address] [address]- [facility] Attending Physician: Arleen Cooper MD Admitting Physician: Arleen Cooper MD Referring Physician: Arleen Cooper MD Allergies, [...] tablet 10 mg, 1, tablet, By Mouth, 2 times a day, # 90 tablet, Refills 0, Maintenance, 09/13/19 10:29:11 EST Start Date: 09/13/19 Status: Ordered Auto CPAP 8-14 cm H2O Auto CPAP 8-14 cm H2O, See Instructions, # 1 each, Refills 0, Tot. Refills 0, Maintenance, to be worn QHS dx: G47.30 YAMIL: lifetime, 06/23/19 14:38:50 EDT, Compound Start Date: 06/23/19 Status: Ordered carvedilol 25 mg oral tablet 25 mg, By Mouth, Daily, Refills 0, Maintenance, 05/23/18 11:49:25 EDT Start Date: 05/23/18 Status: Ordered Lantus Solostar Pen 100 units/mL subcutaneous solution = 35 units, Subcutaneous Injection, Daily, # 11 mL, 5 Refills, Maintenance, 02/17/18 12:57:38 EDT, Solution Start Date: 02/17/18 Status: Ordered lisinopril 10 mg oral tablet 10 mg, 1, tablet, By Mouth, Daily, TAKE IN AM, # 30 tablet, Refills 0, Maintenance, 09/10/19 5:27:02 EST Start Date: 09/10/19 Status: Ordered lisinopril 40 mg oral tablet 1 tablet = 40 mg, By Mouth, Daily, # 30 tablet, 0 Refills, Maintenance, 09/13/19 10:28:54 EST, Tablet Start Date: 09/13/19 Status: Ordered PAP Supplies - Mask, Tubing, Filters, Head Gear, Chin Strap, and Water Chamber PAP Supplies - Mask, Tubing, Filters, Head Gear, Chin Strap, and Water Chamber, See Instructions, #1 each, Refills 12, Tot. Refills 12, Maintenance, to be used with CPAP machine for dx: ADAM G47.30, 06/23/19 14:38:44 EDT, Compound Start Date: 06/23/19 Status: Ordered Pen Cranberry, 31 G x 5 mm BD Ultra Fine III See Instructions, # 100 each, Refills 3, Tot. Refills 3, Maintenance, use as directed for Type 1 Diabetes Mellitus, 07/20/18 14:11:38 EDT, Compound Start Date: 07/20/18 Stop Date: 07/15/19 Status: Ordered Velphoro 2500 mg (500 mg elemental iron) oral tablet, chewable 1 tablet = 500 mg, Chew, 3 times a day with meals, # 90 tablet, 0 Refills, Maintenance, 08/23/18 11:15:36 EST, Chew Tablet Start Date: 08/23/18 Status: Ordered Problem List Condition Effective Dates Status Health Status Inform ant ESRD on hemodialysis(Confirmed) Active Diabetes mellitus(Confirmed) Active Hearing loss(Confirmed) 1 Active HTN (hypertension)(Confirmed) Active Care Management [facility] Diann [phone](Confirmed) Active Subclinical hypothyroidism(Confirmed) Active 1Weighed 1.5 pounds at . 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
--- OUTSIDE RECORDS SUMMARY | 2023-06-19 12:38 | XMS_ITS | Continuity of Care Document ---
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 Start Date: 04/30/20 Stop Date: 06/30/20 Status: Ordered docusate sodium 100 mg oral capsule 100 mg, 1, capsule, By Mouth, 3 times a day, PRN, # 90 capsule, Refills 0, Tot. Refills 0, Maintenance, for constipation, 04/12/20 12:34:00 EDT, Route to Pharmacy Electronically, [facility], 167.64, cm, 04/12/20 4:21:00 EDT, Height, 7... Start Date: 04/12/20 Status: Ordered Envarsus XR 1 mg oral tablet, extended release 8 tablet = 8 mg, By Mouth, Daily in AM, # 240 tablet, 11 Refills, Maintenance, 04/30/20 9:22:00 EDT, [facility], 167.64, cm, 04/30/20 8:23:00 EDT, Height, 70, kg, 04/11/20 15:19:00 EDT, Dry Weight Start Date: 04/30/20 Status: Ordered Envarsus XR 1 mg oral tablet, extended release 8 tablet = 8 mg, By Mouth, Daily in AM, # 240 tablet, 0 Refills, Maintenance, 04/12/20 12:33:00 EDT, [facility], 167.64, cm, 04/12/20 4:21:00 [...] & tomorrow, 04/19/20 15:08:00 EDT, Pt to picker 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 Start Date: 04/19/20 Stop Date: 06/18/20 Status: Ordered Lantus Solostar Pen 100 units/mL subcutaneous solution = 30 units, Subcutaneous Injection, Daily at bedtime, # 10 mL, 11 Refills, Maintenance, 04/17/20 16:49:00 EDT, [facility] #[id number], 167.64, cm, 04/16/20 8:56:00 EDT, Height, 70, kg, 04/11/20 15:19:00 EDT, Dry Weight Start Date: 04/17/20 Status: Ordered levothyroxine 0.025 mg oral tablet 1.5 tablet = 37.5 mcg, By Mouth, Daily, # 45 tablet, 11 Refills, Maintenance, 04/18/20 17:51:00 EDT, Tablet, [facility] #[id number], 167.64, cm, 04/16/20 8:56:00 EDT, Height, 70, kg, 04/11/20 15:19:00 EDT, Dry Weight Start Date: 04/18/20 Status: Ordered NIFEdipine 60 mg oral tablet, extended release 60 mg, 1, tablet, By Mouth, Daily, # 30 tablet, Refills 0, Tot. Refills 0, Maintenance, 04/14/20 16:03:00 EDT, Route to Pharmacy Electronically, [place] [address], 167.64, cm, 04/14/20 15:37:00 EDT, Height, 70, kg, 04/11/20 15:19:00 EDT, Dry We... Start Date: 04/14/20 Status: Ordered Pen Ideal, 31 G x 5 mm BD Ultra [...] 04/30/20 9:22:00 EDT, Route to Pharmacy Electronically, [facility], 167.64, cm, 04/30/20 8:23:00 EDT, Height, 70, kg, 04/11/20 15:... Start Date: 04/30/20 Stop Date: 09/30/20 Status: Ordered Problem List Condition Effective Dates Status Health Status Inform ant ESRD on hemodialysis(Confirmed) Active Diabetes mellitus(Confirmed) Active Hearing loss(Confirmed) 1 Active HTN (hypertension)(Confirmed) Active ADAM (obstructive sleep apnea)(Confirmed) Active Care Management [facility] , Sarah Gabriel (Confirmed) Active Subclinical hypothyroidism(Confirmed) Active 1Weighed 1.5 pounds at . 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
--- OUTSIDE RECORDS SUMMARY | 2023-06-19 12:38 | XMS_ITS | Continuity of Care Document ---
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 [place] Date(s): 04/17/20 - 05/17/[address] [address]- [facility] Allergies, Adverse Reactions, Alerts Substance Reaction Severity [...] 09/30/20 9:23:00 EST, 04/30/20 9:21:00 EDT, Tablet, [facility], 1 tablet By Mouth Daily, [...] 04/30/20 9:22:00 EDT, Route to Pharmacy Electronically, [facility], 167.64, cm, 04/30/20 8:23:00 EDT, Height, 70, kg, ... Start Date: 04/30/20 Stop Date: 06/30/20 Status: Ordered docusate sodium 100 mg oral capsule 100 mg, 1, capsule, By Mouth, 3 times a day, PRN, # 90 capsule, Refills 0, Tot. Refills 0, Maintenance, for constipation, 04/12/20 12:34:00 EDT, Route to Pharmacy Electronically, [facility], 167.64, cm, 04/12/20 4:21:00 EDT, Height, 7... Start Date: 04/12/20 Status: Ordered Envarsus XR 1 mg oral tablet, extended release 8 tablet = 8 mg, By Mouth, Daily in AM, # 240 tablet, 11 Refills, Maintenance, 04/30/20 9:22:00 EDT, [facility], 167.64, cm, 04/30/20 8:23:00 EDT, Height, 70, kg, 04/11/20 15:19:00 EDT, Dry Weight Start Date: 04/30/20 Status: Ordered Envarsus XR 1 mg oral tablet, extended release 8 tablet = 8 mg, By Mouth, Daily in AM, # 240 tablet, 0 Refills, Maintenance, 04/12/20 12:33:00 EDT, [facility], 167.64, cm, 04/12/20 4:21:00 EDT, [...] & tomorrow, 04/19/20 15:08:00 EDT, Pt to lemon picker 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 Start Date: 04/19/20 Stop Date: 06/18/20 Status: Ordered Lantus Solostar Pen 100 units/mL subcutaneous solution = 30 units, Subcutaneous Injection, Daily at bedtime, # 10 mL, 11 Refills, Maintenance, 04/17/20 16:49:00 EDT, [facility] #[id number], 167.64, cm, 04/16/20 8:56:00 EDT, Height, 70, kg, 04/11/20 15:19:00 EDT, Dry Weight Start Date: 04/17/20 Status: Ordered levothyroxine 0.025 mg oral tablet 1.5 tablet = 37.5 mcg, By Mouth, Daily, # 45 tablet, 11 Refills, Maintenance, 04/18/20 17:51:00 EDT, Tablet, [id number], 167.64, cm, 04/16/20 8:56:00 EDT, Height, 70, kg, 04/11/20 15:19:00 EDT, Dry Weight Start Date: 04/18/20 Status: Ordered NIFEdipine 60 mg oral tablet, extended release 60 mg, 1, tablet, By Mouth, Daily, # 30 tablet, Refills 0, Tot. Refills 0, Maintenance, 04/14/20 16:03:00 EDT, Route to Pharmacy Electronically, [place] [address], 167.64, cm, 04/14/20 15:37:00 EDT, Height, 70, kg, 04/11/20 15:19:00 EDT, Dry We... Start Date: 04/14/20 Status: Ordered Pen [place], 31 G x 5 mm BD Ultra [...] 04/30/20 9:22:00 EDT, Route to Pharmacy Electronically, [facility], 167.64, cm, 04/30/20 8:23:00 EDT, Height, 70, kg, 04/11/20 15:... Start Date: 04/30/20 Stop Date: 09/30/20 Status: Ordered Problem List Condition Effective Dates Status Health Status Inform ant ESRD on hemodialysis(Confirmed) Active Diabetes mellitus(Confirmed) Active Hearing loss(Confirmed) 1 Active HTN (hypertension)(Confirmed) Active ADAM (obstructive sleep apnea)(Confirmed) Active Care Management [facility] , Sarah Gabriel (Confirmed) Active Subclinical hypothyroidism(Confirmed) Active 1Weighed 1.5 pounds at . 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
--- OUTSIDE RECORDS SUMMARY | 2023-06-19 12:38 | XMS_ITS | Continuity of Care Document ---
Author Name Unknown Organization [facility] Address [address] [place] [address]- Care Team Providers Care Petrophysical Engineer Name Role Phone Arleen Cooper MD Primary Care Physician [place] [facility] [place] 02/28/[address] [address] Allergies, Adverse Reactions, Alerts Substance Reaction Severity Status ibuprofen decreased kidney function Ac tive aspirin decresed kidney function Act nina Toradol 1 decreased kidney function Ac tive Robaxin itching Active Valium difficulty breathing Active Vicodin itching Active 1Pt states he is not allergic to this medication Immunizations Given and Recorded Vaccine Date Status Refusal Reason [id number] 12y+ bivalent booster vax 1 07/17/22 Given [...] 11/25/22 Status: Ordered B-D PEN NDL MINI [id number](12/11)PRPL USE DIRECTED FOR TYPE 1 DIABETES Start Date: 11/25/22 Status: Ordered Baqsimi One Pack 3 mg nasal powder See Instructions, 3 mg Once In one nostril; dose does not need to be inhaled may repeat in 15 minutes alternate nostrils, # 1 each, 5 Refills, Soft Stop, 09/19/22 22:47:00 EST, [facility] #[id number], Partial fill upon patient request if the [...] Maintenance, 09/30/22 13:35:00 EST, Route toPharmacy Electronically, [facility] #[id number], 168, cm, 09/19/22 14:56:00 EST, Height, 60.2,kg, [...] Refills, Soft Stop,09/19/22 22:51:00 EST, Chew Tablet, [facility] #[id number], Partial fill upon patient request if the prescription is for a schedule II opioid drug... Start Date: 09/19/22 Status: Ordered Lantus Solostar Pen 100 units/mL subcutaneous solution See Instructions, Please take 20 units at bedtime E11.8, # 45 mL, 3 Refills, Maintenance, 12/29/22 8:07:00 EDT, Injection, [facility] #[id number], Partial fill upon patient request if the prescription is for a schedule II opioid drug., 168, cm,... Start Date: 12/29/22 Status: Ordered levothyroxine 0.025 mg oral tablet 1.5 tablet, By Mouth, Daily, # 45 tablet, 10 Refills, Maintenance, 01/12/23 16:11:00 EDT, [facility] #[id number], 168, cm, 12/26/22 16:32:00 EDT, Height, 72.7, [...] BG... Start Date: 12/27/22 Status: Ordered Pen Murdock, 31 G x 5 mm BD Ultra [...] 0 Refills, Maintenance, 06/28/22 11:25:00 EDT, Tablet, [facility] #[id number], Partial fill upon patient request if the [...] GIVEN HE IS ON ANTI REJECTION TREATMENT [facility]ANS[facility] REJECTION Start Date: 11/25/22 Status: Ordered tacrolimus 1 mg oral tablet, extended release = 8 mg, By Mouth, Daily in AM, Please take tacrolimus 8 mg PO daily in AM and f/u with nephrologistfor level monitoring and dose adjustment., # 30 tablet, 0 Refills, Maintenance, 07/10/22 12:57:00 EDT, XR Tablet, [facility] #[id number], Partial... Start Date: 07/10/22 Stop Date: 08/09/22 Status: Ordered tamsulosin 0.4 mg oral capsule 0.4 mg, 1, capsule, By Mouth, Daily, # 30 capsule, Refills 0, Tot. Refills 0, Maintenance, :30:00 EDT, Route to Pharmacy Electronically, [facility] #[id number], Partial fill upon patient request if the prescription is for a schedule II... Start Date: 07/21/22 Status: Ordered Trulicity Pen 0.75 mg/0.5 mL subcutaneous solution 0.5 mL = 0.75 mg, Subcutaneous Injection, Every week, rotate injection sites, # 2 mL, 5 Refills, Maintenance, 12/26/22 17:06:00 EDT, Solution, [facility] #[id number], Partial fill upon patient request if the prescription is for a schedule II opio... Start Date: 12/26/22 Status: Ordered valganciclovir 450 mg oral tablet 450 mg, 1, tablet, By Mouth, Every Thursday, Thursday and Thursday, # 26 tablet, Refills 1, Tot. Refills 1, Maintenance, 06/28/22 11:26:00 EDT, Route to Pharmacy Electronically, [facility] #[id number], Partial fill upon patient request if the [...] ADAM (obstructive sleep apnea) Confirmed Active [facility] Care Management [facility] Care, Vernell Fabian [phone] Confirmed Active Subclinical hypothyroidism Confirmed Active 1Weighed 1.5 pounds at . 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 Social History Social History Type Response Smoking Status Never smoker; Tobacc o user in household: No entered on: 09/12/15 Sex Patient Care team information Care Team Personnel Name: Desmond Anton RN Position: S RN Member Role: Primary Care Nurse Name: Eliza Ch RN Position: [facility] RN Member Role: Primary Care Nurse Name: Izzy Cooper Position: S RN Member Role: Primary Care Nurse Name: Elie Alex MD Position: [facility] Renal MD Member Role: Lifetime Consulting Physician Address: Address: [address] [place] [address], [address] [facility] [place] [address]- Name: Rayray Brand Position: [facility] Physician (General Medicine) Member Role: Primary Care Nurse Name: Liudmila Hinds Position: S RN Member Role: Primary Care Nurse Name: Kannan Gibbs RN Position: [facility] RN Member Role: Primary Care Nurse Name: Chase Brumfield RN Position: [facility] ED RN W/OE and Tasks Member Role: Primary Care Nurse Name: Link Stein RN Position: [facility] RN Supv Member Role: Primary Care Nurse Name: Isai Weaver DO Position: [facility] Renal MD Member Role: Lifetime Consulting Physician Address: Address: [address] [place], [place] [address] [place] [address]- Name: Lor Abdullahi RN Position: [facility] RN Member Role: Primary Care Nurse Name: Charity Billings RN Position: [facility] RN Member Role: Primary Care Nurse Name: Trae Hawkins III, RN Position: [facility] RN Member Role: Primary Care Nurse Name: Yamini Soares Position: [facility] RN Member Role: Primary Care Nurse Name: Marcus Ardon RN Position: [facility] RN Member Role: Primary Care Nurse Name: Jaison Sherwood MD Position: [facility] Renal MD Member Role: Lifetime Consulting Physician Address: Address: [address] [place] [address] [address] [facility] [place] [address]- Name: Anna White RN Position: [facility] AMB Nurse Member Role: Primary Care Nurse Name: Marleny Sanchez RN Position: [facility] RN Member Role: Primary Care Nurse Name: Gabriel Chappell MD Position: [facility] Renal MD Member Role: Lifetime Consulting Physician Address: Address: [address] [place] [address] [facility] [place] [address]- Name: Muriel Page RN Position: [facility] SN RN Member Role: Primary Care Nurse Name: Marielena Sheehan RN Position: [facility] RN Member Role: Primary Care Nurse Name: Nadia Hernandez RN Position: [facility] RN Member Role: Primary Care Nurse Name: Елена Jules RN Position: [facility] RN Member Role: Primary Care Nurse Name: Arleen Cooper MD Position: [facility] Physician - Primary Care Member Role: PCP Address: Address: [address] [place] [address] [place] Care Team Related Persons Name: CAMI ELIAS Address: home [address] [place] [address] Name: HERMILO PANDA Address: home [address] [address] Name: JACK PANDA Address: home [address] [place] [address]
--- OUTSIDE RECORDS SUMMARY | 2023-06-19 12:38 | XMS_ITS | Continuity of Care Document ---
Author Name Unknown Organization [facility] Address [address] [place] [address]- Care Team Providers Care Die Cutter Name Role Phone Arleen Cooper MD Primary Care Physician [phone] [id number] Date(s): 11/25/22 - 01/22/[address] [address]- Attending Physician: Newton Goodwin MD Admitting Physician: [...] and Recorded Vaccine Date Status Refusal Reason [id number] 12y+ bivalent booster vax 1 07/17/22 Given [...] 11/27/11 Given 1Result Comment: GIVEN BY GERALDINE HOOKS RN 2Admin Note: vis 08/15/08 3Admin Note: vis Medications Alcohol Pads See Instructions, # 100 each, Refills 11, Tot. Refills 11, Maintenance, use to clean skin prior to insulin injections and before applying new sagar sensor (max 5 times per day), 11/25/22 10:33:00 EST, Supply, 168, cm, 11/11/22 8:46:00 EST, Height, 60.... Start Date: 11/25/22 Status: Ordered B-D PEN NDL MINI [id number](12/11)PRPL USE DIRECTED FOR TYPE 1 DIABETES Start Date: 11/25/22 Status: Ordered Baqsimi One Pack 3 mg nasal powder See Instructions, 3 mg Once In one nostril; dose does not need to be inhaled may repeat in 15 minutes alternate nostrils, # 1 each, 5 Refills, Soft Stop, 09/19/22 22:47:00 EST, [facility] #[id number], Partial fill upon patient request if the p... Start Date: 09/19/22 Status: Ordered Blood Pressure Monitor Blood Pressure Monitor, See Instructions, # 1 each, Refills 0, Tot. Refills 0, Maintenance, to be used to check BP daily, Dx: HTN, ESRD on HD, new onset hypotenstion with falls; just stopped nifedipine, 07/17/22 18:07:00 EDT, Supply Start Date: 07/17/22 Status: Ordered cefepime 2 g intravenous injection = 2 Gm, IV Infusion, Once, During dialysis 08/01, # 1 each, 0 Refills, Soft Stop, 07/30/22 13:42:00 EDT, Partial fill upon patient request if the prescription is for a schedule II opioid drug. Start Date: 07/30/22 Status: Ordered Daily Lele oral tablet 1 tablet, By Mouth, Daily, # 30 tablet, 11 Refills, Maintenance, 10/17/22 12:12:00 EST, [facility] #[id number], 30, TAKE 1 TABLET BY MOUTH EVERY DAY, 168, cm, 09/19/22 14:56:00 EST, Height, 60.2, kg, 07/24/22 0:30:00 EDT, Dry Weight Start Date: 10/17/22 Status: Ordered FLUoxetine 20 mg oral capsule 1, capsule, By Mouth, Daily, # 30 capsule, Refills 11, Maintenance, 09/30/22 13:35:00 EST, Route toPharmacy Electronically, [facility] #[id number], 168, cm, 09/19/22 14:56:00 EST, Height, 60.2,kg, [...] 09/02/22 15:33:00 EST, Route to Pharmacy Electronically, [facility] #[id number], 168, cm, 07/30/22 15:53:00 EDT, Height, 60.2, kg, 07/24/22 0:30:00 EDT, Dry Weight Start Date: 09/02/22 Status: Ordered glucose 4 gm oral tablet, chewable 4 tablet = 16 Gm, Chew, Once, PRN as needed for low blood sugar, # 50 tablet, 0 Refills, Soft Stop,09/19/22 22:51:00 EST, Chew Tablet, [facility] #[id number], Partial fill upon patient request if the prescription is for a schedule II opioid drug... Start Date: 09/19/22 Status: Ordered Golytely - oral powder for reconstitution See Instructions, Drink 240mL every 15 minutes until gone, # 4,000 mL, 0 Refills, Maintenance, 12/03/22 9:00:00 EST, [facility] #[id number], Partial fill upon patient request if the prescriptionis for a schedule II opioid drug., Drink 240mL ever... Start Date: 12/03/22 Status: Ordered Lantus Solostar Pen 100 units/mL subcutaneous solution See Instructions, Please take 20 units at bedtime E11.8, # 45 mL, 3 Refills, Maintenance, 12/29/22 8:07:00 EDT, Injection, [facility] #[id number], Partial fill upon patient request if the prescription is for a schedule II opioid drug., 168, cm,... Start Date: 12/29/22 Status: Ordered levothyroxine 0.025 mg oral tablet 1.5 tablet, By Mouth, Daily, # 45 tablet, 10 Refills, Maintenance, 01/12/23 16:11:00 EDT, [facility][id number], 168, cm, 12/26/22 16:32:00 EDT, Height, 72.7, kg, 12/20/22 14:52:00 EDT, Dry Weight Start Date: 01/12/23 Status: Ordered multivitamin Vitamin B Complex with C and Folic Acid oral capsule TAKE 1 CAPSULE BY MOUTH ONCE DAILY Start Date: 11/25/22 Status: Ordered mycophenolate mofetil 500 mg oral tablet TAKE 3 TABLETS BY MOUTH TWICE DAILY Start Date: 11/25/22 Status: Ordered NovoLOG FlexPen 100 units/mL injectable solution 0 Refills, Maintenance, 11/25/22 10:48:00 EST, Partial fill upon patient request if the prescription is for a schedule II opioid drug. Start Date: 11/25/22 Status: Ordered NovoLOG FlexPen [...] BG... Start Date: 12/27/22 Status: Ordered Pen [place], 31 G x 5 mm BD Ultra [...] 0 Refills, Maintenance, 06/28/22 11:25:00 EDT, Tablet, [facility] #[id number], Partial fill upon patient request if the [...] GIVEN HE IS ON ANTI REJECTION TREATMENT [facility] TRANSPLANT REJECTION Start Date: 11/25/22 Status: Ordered tacrolimus 1 mg oral tablet, extended release = 8 mg, By Mouth, Daily in AM, Please take tacrolimus 8 mg PO daily in AM and f/u with nephrologistfor level monitoring and dose adjustment., # 30 tablet, 0 Refills, Maintenance, 07/10/22 12:57:00 EDT, XR Tablet, [facility] #[id number], Partial... Start Date: 07/10/22 Stop Date: 08/09/22 Status: Ordered tamsulosin 0.4 mg oral capsule 0.4 mg, 1, capsule, By Mouth, Daily, # 30 capsule, Refills 0, Tot. Refills 0, Maintenance, :30:00 EDT, Route to Pharmacy Electronically, [facility] #[id number], Partial fill upon patient request if the prescription is for a schedule II... Start Date: 07/21/22 Status: Ordered Trulicity Pen 0.75 mg/0.5 mL subcutaneous solution 0.5 mL = 0.75 mg, Subcutaneous Injection, Every week, rotate injection sites, # 2 mL, 5 Refills, Maintenance, 12/26/22 17:06:00 EDT, Solution, [facility] #[id number], Partial fill upon patient request if the prescription is for a schedule II opio... Start Date: 12/26/22 Status: Ordered valganciclovir 450 mg oral tablet 450 mg, 1, tablet, By Mouth, Every Thursday, Thursday and Thursday, # 26 tablet, Refills 1, Tot. Refills 1, Maintenance, 06/28/22 11:26:00 EDT, Route to Pharmacy Electronically, [facility] #[id number], Partial fill upon patient request if the [...] Active ADAM (obstructive sleep apnea) Confirmed Active [facility] Care Management [facility], Vernell Rui [phone] Confirmed Active Subclinical hypothyroidism Confirmed Active 1Weighed 1.5 pounds at . 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 Social History Social History Type Response Smoking Status Never smoker; Tobacc o user in household: No entered on: 09/12/15 Sex Patient Care team information Care Team Personnel Name: Desmond Anton RN Position: [facility] RN Member Role: Primary Care Nurse Name: Eliza Ch RN Position: S RN Member Role: Primary Care Nurse Name: Izzy Cooper Position: S RN Member Role: Primary Care Nurse Name: Elie Alex MD Position: [facility] Renal MD Member Role: Lifetime Consulting Physician Address: Address: [address] [place] [address], [address] [facility] [place] [address]- Name: Rayray Brand Position: [facility] Physician (General Medicine) Member Role: Primary Care Nurse Name: Liudmila Hinds Position: S RN Member Role: Primary Care Nurse Name: Kannan Gibbs RN Position: [facility] RN Member Role: Primary Care Nurse Name: Chase Brumfield RN Position: [facility] ED RN W/OE and Tasks Member Role: Primary Care Nurse Name: Link Stein RN Position: [facility] RN Supv Member Role: Primary Care Nurse Name: Isai Weaver DO Position: [facility] Renal MD Member Role: Lifetime Consulting Physician Address: Address: [address] [place], [place] [address] [place] [address]- Name: Lor Abdullahi RN Position: [facility] RN Member Role: Primary Care Nurse Name: Charity Billings RN Position: [facility] RN Member Role: Primary Care Nurse Name: Trae Hawkins III, RN Position: [facility] RN Member Role: Primary Care Nurse Name: Yamini Soares Position: [facility] RN Member Role: Primary Care Nurse Name: Marcus Ardon RN Position: [facility] RN Member Role: Primary Care Nurse Name: Jaison Sherwood MD Position: [facility] Renal MD Member Role: Lifetime Consulting Physician Address: Address: [address] [place] [address] [address] [facility] [place] [address]- Name: Anna White RN Position: [facility] AMB Nurse Member Role: Primary Care Nurse Name: Marleny Sanchez RN Position: [facility] RN Member Role: Primary Care Nurse Name: Gabriel Chappell MD Position: [facility] Renal MD Member Role: Lifetime Consulting Physician Address: Address: [address] [place] [address] [facility] [place] [address]- [place] Name: Muriel Page RN Position: [facility] SN RN Member Role: Primary Care Nurse Name: Marielena Sheehan RN Position: [facility] RN Member Role: Primary Care Nurse Name: Nadia Hernandez RN Position: [facility] RN Member Role: Primary Care Nurse Name: Alyssa Nguyen RN Position: [facility] RN Member Role: Primary Care Nurse Name: Елена Jules RN Position: [facility] RN Member Role: Primary Care Nurse Name: Arleen Cooper MD Position: [facility] Primary Care Physician Member Role: PCP Address: Address: [address] [place] [address]- Care Team Related Persons Name: CAMI ELIAS Address: home [address] [place] [address] Name: HERMILO PANDA Address: [address] [address] Name: JACK PANDA Address: home [address] [place] [address]
--- OUTSIDE RECORDS SUMMARY | 2023-06-19 12:38 | XMS_ITS | Continuity of Care Document ---
Author Name Unknown Organization [facility] Address [address] [place] [address]- Care Team Providers Care Desktop Publishing Operator Name Role Phone Kenneth CLARKE, Arleen Primary Care Physician [phone] Encounter [facility] Date(s): 12/28/22 - 01/27/23 [facility] [address] [place] [address] Encounter Diagnosis Diabetes mellitus with complication(Discharge Diagnosis) - 12/29/22 Allergies, Adverse Reactions, Alerts Substance Reaction Severity Status ibuprofen decreased kidney function Ac tive aspirin decresed kidney function Act nina Toradol 1 decreased kidney function Ac tive Robaxin itching Active Valium difficulty breathing Active Vicodin itching Active 1Pt states he is not allergic to this medication Immunizations Given and Recorded Vaccine Date Status Refusal Reason [id number] 12y+ bivalent booster vax 1 07/17/22 Given [...] 11/25/22 Status: Ordered B-D PEN NDL MINI [id number](12/11)PRPL USE DIRECTED FOR TYPE 1 DIABETES Start Date: 11/25/22 Status: Ordered Baqsimi One Pack 3 mg nasal powder See Instructions, 3 mg Once In one nostril; dose does not need to be inhaled may repeat in 15 minutes alternate nostrils, # 1 each, 5 Refills, Soft Stop, 09/19/22 22:47:00 EST, [facility] #[id number], Partial fill upon patient request if the [...] tablet, 11 Refills, Maintenance, 10/17/22 12:12:00 EST, [facility] #[id number], 30, TAKE 1 TABLET BY MOUTH EVERY DAY, 168, cm, 09/19/22 14:56:00 EST, Height, 60.2, kg, 07/24/22 0:30:00 EDT, Dry Weight Start Date: 10/17/22 Status: Ordered FLUoxetine 20 mg oral capsule 1, capsule, By Mouth, Daily, # 30 capsule, Refills 11, Maintenance, 09/30/22 13:35:00 EST, Route toPharmacy Electronically, [facility] #[id number], 168, cm, 09/19/22 14:56:00 EST, Height, 60.2,kg, [...] 09/02/22 15:33:00 EST, Route to Pharmacy Electronically, [facility] #[id number], 168, cm, 07/30/22 15:53:00 EDT, Height, 60.2, kg, 07/24/22 0:30:00 EDT, Dry Weight Start Date: 09/02/22 Status: Ordered glucose 4 gm oral tablet, chewable 4 tablet = 16 Gm, Chew, Once, PRN as needed for low blood sugar, # 50 tablet, 0 Refills, Soft Stop,09/19/22 22:51:00 EST, Chew Tablet, [facility] #[id number], Partial fill upon patient request if the prescription is for a schedule II opioid drug... Start Date: 09/19/22 Status: Ordered Golytely - oral powder for reconstitution See Instructions, Drink 240mL every 15 minutes until gone, # 4,000 mL, 0 Refills, Maintenance, 12/03/22 9:00:00 EST, [facility] #[id number], Partial fill upon patient request if the prescriptionis for a schedule II opioid drug., Drink 240mL ever... Start Date: 12/03/22 Status: Ordered Lantus Solostar Pen 100 units/mL subcutaneous solution See Instructions, Please take 20 units at bedtime E11.8, # 45 mL, 3 Refills, Maintenance, 12/29/22 8:07:00 EDT, Injection, [facility] #[id number], Partial fill upon patient request if the prescription is for a schedule II opioid drug., 168, cm,... Start Date: 12/29/22 Status: Ordered levothyroxine 0.025 mg oral tablet 1.5 tablet, By Mouth, Daily, # 45 tablet, 10 Refills, Maintenance, 01/12/23 16:11:00 EDT, [facility][id number], 168, cm, 12/26/22 16:32:00 EDT, Height, 72.7, [...] BG... Start Date: 12/27/22 Status: Ordered Pen [place], 31 G x 5 mm BD Ultra [...] 0 Refills, Maintenance, 06/28/22 11:25:00 EDT, Tablet, [facility] #[id number], Partial fill upon patient request if the [...] GIVEN HE IS ON ANTI REJECTION TREATMENT [facility] TRANSPLANT REJECTION Start Date: 11/25/22 Status: Ordered tacrolimus 1 mg oral tablet, extended release = 8 mg, By Mouth, Daily in AM, Please take tacrolimus 8 mg PO daily in AM and f/u with nephrologistfor level monitoring and dose adjustment., # 30 tablet, 0 Refills, Maintenance, 07/10/22 12:57:00 EDT, XR Tablet, [facility] #[id number], Partial... Start Date: 07/10/22 Stop Date: 08/09/22 Status: Ordered tamsulosin 0.4 mg oral capsule 0.4 mg, 1, capsule, By Mouth, Daily, # 30 capsule, Refills 0, Tot. Refills 0, Maintenance, 229:30:00 EDT, Route to Pharmacy Electronically, [facility] #[id number], Partial fill upon patient request if the prescription is for a schedule II... Start Date: 07/21/22 Status: Ordered Trulicity Pen 0.75 mg/0.5 mL subcutaneous solution 0.5 mL = 0.75 mg, Subcutaneous Injection, Every week, rotate injection sites, # 2 mL, 5 Refills, Maintenance, 12/26/22 17:06:00 EDT, Solution, [facility] #[id number], Partial fill upon patient request if the prescription is for a schedule II opio... Start Date: 12/26/22 Status: Ordered valganciclovir 450 mg oral tablet 450 mg, 1, tablet, By Mouth, Every Thursday, Thursday and Thursday, # 26 tablet, Refills 1, Tot. Refills 1, Maintenance, 06/28/22 11:26:00 EDT, Route to Pharmacy Electronically, [facility] #[id number], Partial fill upon patient request if the [...] Active ADAM (obstructive sleep apnea) Confirmed Active [facility] Care Management [facility], Vernell Fabian [phone] Confirmed Active Subclinical hypothyroidism Confirmed Active 1Weighed 1.5 pounds at . 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 RN Member Role: Primary Care Nurse Name: Eliza Ch RN Position: S RN Member Role: Primary Care Nurse Name: Izzy Cooper Position: S RN Member Role: Primary Care Nurse Name: Elie Alex MD Position: [facility] Renal MD Member Role: Lifetime Consulting Physician Address: Address: [address] [place] [address], [address] [facility] [place] [address]- Name: Rayray Brand Position: [facility] Physician (General Medicine) Member Role: Primary Care Nurse Name: Liudmila Hinds Position: [facility] RN Member Role: Primary Care Nurse Name: Kannan Gibbs RN Position: [facility] RN Member Role: Primary Care Nurse Name: Chase Brumfield RN Position: [facility] ED RN W/OE and Tasks Member Role: Primary Care Nurse Name: Link Stein RN Position: [facility] RN Supv Member Role: Primary Care Nurse Name: Isai Weaver DO Position: [facility] Renal MD Member Role: Lifetime Consulting Physician Address: Address: [address] [place], [place] [address] [place] [address]- Name: Lor Abdullahi RN Position: [facility] RN Member Role: Primary Care Nurse Name: Charity Billings RN Position: [facility] RN Member Role: Primary Care Nurse Name: Trae Hawkins III, RN Position: [facility] RN Member Role: Primary Care Nurse Name: Yamini Soares Position: [facility] RN Member Role: Primary Care Nurse Name: Marcus Ardon RN Position: [facility] RN Member Role: Primary Care Nurse Name: Jaison Sherwood MD Position: [facility] Renal MD Member Role: Lifetime Consulting Physician Address: Address: [address] [place] [address] [address] [facility] [place] [address]- Name: Anna White RN Position: [facility] AMB Nurse Member Role: Primary Care Nurse Name: Marleny Sanchez RN Position: [facility] RN Member Role: Primary Care Nurse Name: Gabriel Chappell MD Position: [facility] Renal MD Member Role: Lifetime Consulting Physician Address: Address: [address] [place] [address] [facility] [place] [address]- Name: Muriel Page RN Position: [facility] SN RN Member Role: Primary Care Nurse Name: Marielena Sheehan RN Position: [facility] RN Member Role: Primary Care Nurse Name: Nadia Hernandez RN Position: [facility] RN Member Role: Primary Care Nurse Name: Alyssa Nguyen RN Position: [facility] RN Member Role: Primary Care Nurse Name: Елена Jules RN Position: [facility] RN Member Role: Primary Care Nurse Name: Arleen Cooper MD Position: [facility] Primary Care Physician Member Role: PCP Address: Address: [address] [place] [address]- Care Team Related Persons Name: CAMI ELIAS Address: home [address] [place] [address] Name: HERMILO PANDA Address: [address] [address] Name: JACK PANDA Address: [address] [place] [address]
--- OUTSIDE RECORDS SUMMARY | 2023-06-19 12:38 | XMS_ITS | Continuity of Care Document ---
Author Name Unknown Organization [facility] Address [address] [place] [address]- Care Team Providers Care Associate Merchandiser Name Role Phone Arleen Cooper MD Primary Care Physician [phone] Encounter [facility] [id number] Date(s): 01/20/22 - 03/20/[address] [address] Attending Physician: Arleen Cooper MD Admitting Physician: Arleen Cooper MD Allergies, Adverse Reactions, [...] 02/18/21 16:31:00 EDT, Route to Pharmacy Electronically, [facility] #[id number], Partial fill upon patientrequest if the prescription is for a schedule II op... Start Date: 02/18/21 Stop Date: 08/17/21 Status: Ordered B-D PEN NDL SHRT [id number](02/10) COOPER B-D PEN NDL SHRT [id number](02/10) COOPER, See Instructions, # 100 each, 0 [...] 07/18/20 11:05:00 EDT, Route to Pharmacy Electronically, [facility], 167.64, cm, 07/12/20 8:38:00 EDT, Height, 70, kg, 04/11/20 15:19:00... Start Date: 07/18/20 Stop Date: 08/17/20 Status: Ordered Envarsus XR 1 mg oral tablet, extended release 4 tablet = 4 mg, By Mouth, Daily in AM, # 240 tablet, 0 Refills, Maintenance, 04/12/20 12:33:00 EDT, [facility], 167.64, cm, 04/12/20 4:21:00 [...] 01/23/22 16:09:00 EDT, Route to Pharmacy Electronically, [facility] #[id number], Partial fill upon patient request if the prescription is for a jana... Start Date: 01/23/22 Status: Ordered Kayexcelate Powder Kayexcelate Powder, 30 grams, By Mouth, Daily, # 454 Gm, Refills 1, Tot. Refills 1, Maintenance, Mix 8 level teaspoons in water or apple juice & drink by mouth today & tomorrow, 04/19/20 15:08:00 EDT, Pt to [facility] 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 Start Date: 04/19/20 Stop Date: 06/18/20 Status: Ordered Lantus Solostar Pen 100 units/mL subcutaneous solution = 35 units, Subcutaneous Injection, Daily at bedtime, # 12 mL, 11 Refills, Maintenance, 01/18/22 14:50:00 EDT, [facility] #[id number], 167.64, cm, 01/09/22 13:27:00 EDT, Height, 63.7, kg, 01/30/21 22:32:00 EDT, Dry Weight Start Date: 01/18/22 Status: Ordered levothyroxine 0.025 mg oral tablet 1.5 tablet, By Mouth, Daily, # 45 tablet, 0 Refills, [facility] #[id number], 167.64, cm, 01/23/22 11:51:00 EDT, Height, 63.7, kg, 01/30/21 22:32:00 EDT, Dry Weight Start Date: 03/19/22 Status: Ordered Pen [place], 31 G x 5 mm BD Ultra [...] pack/packet, 1 Refills, Maintenance, 06/21/20 16:51:00 EDT, [facility], Deliver to pt in [...] pain(Confirmed) Active ADAM (obstructive sleep apnea)(Confirmed) Active [facility] Care Management [facility] , Vernell Rui [phone](Confirmed) Active Subclinical hypothyroidism(Confirmed) Active 1Weighed 1.5 pounds at . 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
--- OUTSIDE RECORDS SUMMARY | 2023-06-19 12:38 | XMS_ITS | Continuity of Care Document ---
Author Name Unknown Organization [facility] Address [address] [place] [address]- Care Team Providers Care Sales And Marketing Coordinator Name Role Phone Arleen Cooper MD Primary Care Physician [phone] Encounter [facility] Date(s): 03/07/20 - 04/06/20 [facility] [address] [facility] [address] [place] [address]- [facility] Attending Physician: Enid Maharaj Admitting Physician: Enid Maharaj Referring Physician: Enid Maharaj Allergies, Adverse Reactions, Alerts Substance Reaction Severity [...] 11:50:00 EDT Start Date: 02/16/20 Status: Ordered Blood Pressure Monitor Blood Pressure [...] 11:49:25 EDT Start Date: 05/23/18 Status: Ordered HydrALAZINE = 50 mg, By [...] tablet, 2 Refills, Maintenance, 09/27/19 12:25:00 EST,Tablet, [facility] #[id number], 168, cm, 09/27/19 11:17:00 EST, Height, 70, kg, 09/24/19 17:59:00 EST, Dry Weight Start Date: 09/27/19 Status: Ordered lisinopril 40 mg oral tablet 1 tablet = 40 mg, By Mouth, Daily, # 30 tablet, 0 Refills, Maintenance, 09/13/19 10:28:54 EST, Tablet Start Date: 09/13/19 Status: Ordered Pen Finger, 31 G x 5 mm BD Ultra Fine III See Instructions, # 100 each, Refills 3, Tot. Refills 3, Maintenance, use as directed for Type 1 Diabetes Mellitus, 07/20/18 14:11:38 EDT, Compound Start Date: 07/20/18 Stop Date: 07/15/19 Status: Ordered Sensipar 90 mg oral tablet See Instructions, take 2 tablets by mouth three times a week in-center, 0 Refills, Maintenance, 09/24/19 14:51:00 EST Start Date: 09/24/19 Status: Ordered sevelamer carbonate 800 mg oral tablet 2 tablet = 1,600 mg, By Mouth, 3 times a day, # 90 tablet, 0 Refills, Maintenance, 03/19/20 16:06:00 EDT, Tablet Start Date: 03/19/20 Status: Ordered Problem List Condition Effective Dates Status Health Status Inform ant ESRD on hemodialysis(Confirmed) Active Diabetes mellitus(Confirmed) Active Hearing loss(Confirmed) 1 Active HTN (hypertension)(Confirmed) Active ADAM (obstructive sleep apnea)(Confirmed) Active Care Management [facility] , Diann Tunas [phone](Confirmed) Active Subclinical hypothyroidism(Confirmed) Active 1Weighed 1.5 pounds at . 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 Vital Signs Most recent to oldest [Reference Range]: 1 Height 168 cm (08/23/18 11:01 AM) Weight 74.3 kg (08/23/18 11:01 AM) Body Mass Index [18.5-24.99] 26.33 *H* (08/23/18 11:01 AM) Weight Obtained Via Standing scale (08/23/18 11:01 AM) Sensory deficits Hearing deficit L, Hearing deficit R (08/23/18 11:01 AM) Social History Social History Type Response Smoking Status Never smoker; Tobacc o user in household: No entered on: 09/12/15 Sex
--- OUTSIDE RECORDS SUMMARY | 2023-06-19 12:38 | XMS_ITS | Continuity of Care Document ---
Author Name Unknown Organization [facility] Address [address] [facility] [address] [place] [address]- Care Team Providers Care Collaborative Teacher Name Role Phone Arleen Cooper MD Primary Care Physician Encounter [facility] [place] [id number] Date(s): 09/16/22 - 10/16/22 [facility] 100 [facility] [address] [place] [address]- Attending Physician: Enid Maharaj Admitting Physician: Enid [...] and Recorded Vaccine Date Status Refusal Reason [id number] 12y+ bivalent booster vax 1 07/17/22 Given [...] Note: vis Medications B-D PEN NDL SHRT [id number](02/10) COOPER B-D PEN NDL SHRT [id number](02/10) COOPER, See Instructions, # 100 each, 0 Refills, Maintenance, USE DIRECTED, 167.64, cm, 02/28/21 10:34:00 EDT, Height, 63.7, kg, 01/30/21 22:32:00 EDT, Dry Weight Start Date: 03/18/21 Status: Ordered Baqsimi One Pack 3 mg nasal powder See Instructions, 3 mg Once In one nostril; dose does not need to be inhaled may repeat in 15 minutes alternate nostrils, # 1 each, 5 Refills, Soft Stop, 09/19/22 22:47:00 [facility] #[id number], Partial fill upon patient request if the [...] opioid drug. Start Date: 07/30/22 Status: Ordered FLUoxetine 20 mg oral capsule 1, capsule, By Mouth, Daily, # 30 capsule, Refills 11, Maintenance, 09/30/22 13:35:00 EST, Route toPharmacy Electronically, [facility] #[id number], 168, cm, 09/19/22 14:56:00 EST, Height, 60.2,kg, 07/24/22 0:30:00 EDT, Dry Weight Start Date: 09/30/22 Status: Ordered free style sagar reader free [...] 12:13:00 E... Start Date: 07/25/22 Status: Ordered FreeStyle Sagar 2 Sensors See Instructions, # 2 each, Refills 11, Tot. Refills 11, Maintenance, E11.9 30 day supply Use to check blood glucose 4x daily, 09/19/22 22:57:00 EST, Supply, 168, cm, 09/19/22 14:56:00 EST, Height, 60.2, kg, 07/24/22 0:30:00 EDT, Dry Weight Start Date: 09/19/22 Status: Ordered FREESTYLE LITE BLOOD GLUCOSE STRIPS [...] 09/02/22 15:33:00 EST, Route to Pharmacy Electronically, [facility] #[id number], 168, cm, 07/30/22 15:53:00 EDT, Height, 60.2, kg, 07/24/22 0:30:00 EDT, Dry Weight Start Date: 09/02/22 Status: Ordered glucose 4 gm oral tablet, chewable 4 tablet = 16 Gm, Chew, Once, PRN as needed for low blood sugar, # 50 tablet, 0 Refills, Soft Stop,09/19/22 22:51:00 EST, Chew Tablet, [facility] #[id number], Partial fill upon patient request if the prescription is for a schedule II opioid drug... Start Date: 09/19/22 Status: Ordered insulin glargine (concentrated) 300 units/mL subcutaneous solution See Instructions, 25 units s/c in the AM at the same time every day rotate injection sites, # 12 mL, 2 Refills, Maintenance, 06/29/22 11:32:00 EDT, Solution, [facility] #[id number], Partial fillupon patient request if the prescription is... Start Date: 06/29/22 Status: Ordered insulin lispro (concentrated) 200 units/mL subcutaneous solution See Instructions, 3 units Subcutaneous Infusion for FSBS of every 100 and 1 unit additional for every 40 above 100, # 12 mL, 3 Refills, Maintenance, 06/29/22 14:22:00 EDT, [facility] #[id number], Partial fill upon patient request if the prescript... Start Date: 06/29/22 Status: Ordered levothyroxine 0.025 mg oral tablet 1.5 tablet, By Mouth, Daily, # 135 tablet, 0 Refills, [facility] #[id number], 167.64, cm, 01/23/22 11:51:00 EDT, Height, 63.7, kg, 01/30/21 22:32:00 EDT, Dry Weight Start Date: 03/27/22 Status: Ordered multivitamin Multiple Vitamins oral capsule 1 capsule, By Mouth, Daily, # 30 capsule, 0 Refills, Maintenance, 09/04/22 11:03:00 EST, Capsule, [facility] #[id number], Partial fill upon patient request if the prescription is for a schedule II opioid drug., 1 capsule By Mouth Daily,x30 days,... Start Date: 09/04/22 Stop Date: 10/04/22 Status: Ordered Pen [place], 31 G x 5 mm BD Ultra [...] 0 Refills, Maintenance, 06/28/22 11:25:00 EDT, Tablet, [facility] #[id number], Partial fill upon patient request if the [...] Refills, Maintenance, 07/10/22 12:57:00 EDT, XR Tablet, [facility] #[id number], Partial... Start Date: 07/10/22 Stop Date: 08/09/22 Status: Ordered tamsulosin 0.4 mg oral capsule 0.4 mg, 1, capsule, By Mouth, Daily, # 30 capsule, Refills 0, Tot. Refills 0, Maintenance, :30:00 EDT, Route to Pharmacy Electronically, [facility] #[id number], Partial fill upon patient request if the prescription is for a schedule II... Start Date: 07/21/22 Status: Ordered valganciclovir 450 mg oral tablet 450 mg, 1, tablet, By Mouth, Every Thursday, Thursday and Thursday, # 26 tablet, Refills 1, Tot. Refills 1, Maintenance, 06/28/22 11:26:00 EDT, Route to Pharmacy Electronically, [facility] #[id number], Partial fill upon patient request if the [...] Active ADAM (obstructive sleep apnea) Confirmed Active [facility] Care Management Vernell Mckenzie [phone] Confirmed Active Subclinical hypothyroidism Confirmed Active 1Weighed 1.5 pounds at . 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 [address] Name: Rayray Brand Position: [facility] Physician (General Medicine) Member Role: Primary Care Nurse Name: Liudmila Hinds Position: [facility] RN Member Role: Primary Care Nurse Name: Kannan Gibbs RN Position: [facility] RN Member Role: Primary Care Nurse Name: Chase Brumfield RN Position: [facility] ED RN W/OE and Tasks Member Role: Primary Care Nurse Name: Sissy Powers RN Position: [facility] RN Member Role: Primary Care Nurse Name: Link Stein RN Position: [facility] RN Supv Member Role: Primary Care Nurse Name: Isai Weaver DO Position: [facility] Renal MD Member Role: Lifetime Consulting Physician Address: Address: [address] [facility] [place] [address]- [place] Name: Lor Abdullahi RN Position: [facility] RN Member Role: Primary Care Nurse Name: Charity Billings RN Position: S RN Member Role: Primary Care Nurse Name: Trae Hawkins III, RN Position: S RN Member Role: Primary Care Nurse Name: Geoffrey Davis RN Position: S RN Member Role: Primary Care Nurse Name: Yamini Soares Position: [facility] RN Member Role: Primary Care Nurse Name: Marcus Ardon RN Position: [facility] RN Member Role: Primary Care Nurse Name: Jaison Sherwood MD Position: [facility] Renal MD Member Role: Lifetime Consulting Physician Address: Address: [address] [place] [address] [address] [facility] [place] [address]- [place] Name: Anna White RN Position: [facility] AMB Nurse Member Role: Primary Care Nurse Name: Marleny Sanchez RN Position: [facility] RN Member Role: Primary Care Nurse Name: Gabriel Chappell MD Position: [facility] Renal MD Member Role: Lifetime Consulting Physician Address: Address: [address] [facility] [place] [address]- [place] Name: Muriel Page RN Position: [facility] SN RN Member Role: Primary Care Nurse Name: Marielena Sheehan RN Position: [facility] RN Member Role: Primary Care Nurse Name: Nadia Hernandez RN Position: [facility] RN Member Role: Primary Care Nurse Name: Alyssa Nguyen RN Position: [facility] RN Member Role: Primary Care Nurse Name: Елена Jules RN Position: [facility] RN Member Role: Primary Care Nurse Name: Arleen Cooper MD Position: [facility] Primary Care Physician Member Role: PCP Address: Address: [address] [place] [address]- [place] Care Team Related Persons Name: CAMI ELIAS Address: home [address] [place] [address] Name: HERMILO PANDA Address: home [address] [address] Name: JACK PANDA Address: home [address] [place] [address]
--- OUTSIDE RECORDS SUMMARY | 2023-06-19 12:38 | XMS_ITS | Continuity of Care Document ---
Author Name Unknown Organization [facility] Address [address] [place] [address]- Care Team Providers Care Lighting Designer Name Role Phone Ranjith CLARKE, Lucio Mcnally Primary Care Physician Encounter [facility] ACCT R [id number] Date(s): 03/02/23 - 04/01/[address] [address]- Attending Physician: Enid Maharaj Admitting Physician: Enid Maharaj Referring Physician: Enid Maharaj Referring Physician: Pia Linn LPN Allergies, Adverse Reactions, Alerts Substance Reaction Severity Status ibuprofen decreased kidney function Ac tive aspirin decresed kidney function Act nina Toradol 1 decreased kidney function Ac tive Robaxin itching Active Valium difficulty breathing Active Vicodin itching Active 1Pt states he is not allergic to this medication Immunizations Given and Recorded Vaccine Date Status Refusal Reason [id number] 12y+ bivalent booster vax 1 07/17/22 Given [...] 11/25/22 Status: Ordered B-D PEN NDL MINI [id number](12/11)PRPL USE DIRECTED FOR TYPE 1 DIABETES Start Date: 11/25/22 Status: Ordered Baqsimi One Pack 3 mg nasal powder See Instructions, 3 mg Once In one nostril; dose does not need to be inhaled may repeat in 15 minutes alternate nostrils, # 1 each, 5 Refills, Soft Stop, 09/19/22 22:47:00 EST, [facility] #[id number], Partial fill upon patient request if the [...] Maintenance, 09/30/22 13:35:00 EST, Route toPharmacy Electronically, [facility] #[id number], 168, cm, 09/19/22 14:56:00 EST, Height, 60.2,kg, [...] Refills, Soft Stop,09/19/22 22:51:00 EST, Chew Tablet, [email or web address] #[id number], Partial fill upon patient request if the prescription is for a schedule II opioid drug... Start Date: 09/19/22 Status: Ordered Lantus Solostar Pen 100 units/mL subcutaneous solution See Instructions, Please take 20 units at bedtime E11.8, # 45 mL, 3 Refills, Maintenance, 12/29/22 8:07:00 EDT, Injection, [email or web address] #[id number], Partial fill upon patient request if the prescription is for a schedule II opioid drug., 168, cm,... Start Date: 12/29/22 Status: Ordered levothyroxine 0.025 mg oral tablet 1.5 tablet, By Mouth, Daily, # 45 tablet, 10 Refills, Maintenance, 01/12/23 16:11:00 EDT, [facility] #[id number], 168, cm, 12/26/22 16:32:00 EDT, Height, 72.7, [...] BG... Start Date: 12/27/22 Status: Ordered Pen [place], 31 G x 5 mm BD Ultra [...] 0 Refills, Maintenance, 06/28/22 11:25:00 EDT, Tablet, [facility] #[id number], Partial fill upon patient request if the [...] GIVEN HE IS ON ANTI REJECTION TREATMENT [facility] TRANSPLANT REJECTION Start Date: 11/25/22 Status: Ordered tacrolimus 1 mg oral tablet, extended release = 8 mg, By Mouth, Daily in AM, Please take tacrolimus 8 mg PO daily in AM and f/u with nephrologistfor level monitoring and dose adjustment., # 30 tablet, 0 Refills, Maintenance, 07/10/22 12:57:00 EDT, XR Tablet, [email or web address] #[id number], Partial... Start Date: 07/10/22 Stop Date: 08/09/22 Status: Ordered tamsulosin 0.4 mg oral capsule 0.4 mg, 1, capsule, By Mouth, Daily, # 30 capsule, Refills 0, Tot. Refills 0, Maintenance, :30:00 EDT, Route to Pharmacy Electronically, [email or web address] #[id number], Partial fill upon patient request if the prescription is for a schedule II... Start Date: 07/21/22 Status: Ordered Trulicity Pen 0.75 mg/0.5 mL subcutaneous solution 0.5 mL = 0.75 mg, Subcutaneous Injection, Every week, rotate injection sites, # 2 mL, 5 Refills, Maintenance, 12/26/22 17:06:00 EDT, Solution, [facility] #[id number], Partial fill upon patient request if the prescription is for a schedule II opio... Start Date: 12/26/22 Status: Ordered valganciclovir 450 mg oral tablet 450 mg, 1, tablet, By Mouth, Every Thursday, Thursday and Thursday, # 26 tablet, Refills 1, Tot. Refills 1, Maintenance, 06/28/22 11:26:00 EDT, Route to Pharmacy Electronically, [email or web address] #[id number], Partial fill upon patient request if the [...] sleep apnea) Confirmed Active N Care Management Addy Liriano, Vernell Fabian [phone] Confirmed Active Subclinical hypothyroidism Confirmed Active 1Weighed 1.5 pounds at . 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 Social History Social History Type Response Smoking Status Never smoker; Tobacc o user in household: No entered on: 12/16/15 Sex Hospital Consult note * Event Display: Inpatient Consult Note, Non-BH Authored Date: Laboratory * Event Display: Non BH Lab Results Authored Date: * Event Display: Non BH Lab Results Authored Date: * Event Display: Laboratory Result Scanned Authored Date: Patient Care team information Care Team Personnel Name: Desmond Anton RN Position: S RN Member Role: Primary Care Nurse Name: Lucio Kasper MD Position: [facility] Physician - Primary Care Member Role: PCP Address: Address: [address] [place] [address]- [place] Name: Eliza Ch RN Position: [facility] RN Member Role: Primary Care Nurse Name: Izzy Cooper Position: S RN Member Role: Primary Care Nurse Name: Elie Alex MD Position: [facility] Renal MD Member Role: Lifetime Consulting Physician Address: Address: [address] [place] [address], [address] [facility] [place] [address]- Name: Rayray Brand Position: [facility] Physician (General Medicine) Member Role: Primary Care Nurse Name: Liudmila Hinds Position: [facility] RN Member Role: Primary Care Nurse Name: Kannan Gibbs RN Position: [facility] RN Member Role: Primary Care Nurse Name: Chase Brumfield RN Position: [facility] ED RN W/OE and Tasks Member Role: Primary Care Nurse Name: Link Stein RN Position: [facility] RN Supv Member Role: Primary Care Nurse Name: Isai Weaver DO Position: [facility] Renal MD Member Role: Lifetime Consulting Physician Address: Address: [address] [place] [address] [address] [facility] [place] [address]- [place] Name: Lor Abdullahi RN Position: [facility] RN Member Role: Primary Care Nurse Name: Charity Billings RN Position: [facility] RN Member Role: Primary Care Nurse Name: Trae Hawkins III, RN Position: [facility] RN Member Role: Primary Care Nurse Name: Yamini Soares Position: S RN Member Role: Primary Care Nurse Name: Marcus Ardon RN Position: [facility] RN Member Role: Primary Care Nurse Name: Jaison Sherwood MD Position: [facility] Renal MD Member Role: Lifetime Consulting Physician Address: Address: [address] [facility] [address] [facility] [place] [place] [address]- Name: Anna White RN Position: [facility] AMB Nurse Member Role: Primary Care Nurse Name: Marleny Sanchez RN Position: [facility] RN Member Role: Primary Care Nurse Name: Gabriel Chappell MD Position: [facility] Renal MD Member Role: Lifetime Consulting Physician Address: Address: [address] [place] [address] [facility] [place] [address]- Name: Muriel Page RN Position: [facility] SN RN Member Role: Primary Care Nurse Name: Marielena Sheehan RN Position: [facility] RN Member Role: Primary Care Nurse Name: Nadia Hernandez RN Position: [facility] RN Member Role: Primary Care Nurse Name: Елена Jules RN Position: [facility] RN Member Role: Primary Care Nurse Care Team Related Persons Name: CAMI ELIAS Address: home [address] [place] [address] Name: HERMILO PANDA Address: [address] [address] Name: JACK PANDA Address: home [address] [place] [address]
--- OUTSIDE RECORDS SUMMARY | 2023-06-19 12:38 | XMS_ITS | Continuity of Care Document ---
Author Name Unknown Organization [facility] Address [address] [place] [address]- Care Team Providers Care Senior Product Development Engineer Name Role Phone Arleen Cooper MD Primary Care Physician [phone] [place] [facility] 05/10[place]20 - 06/09/20 [facility] [address] [place] [address] [facility] Attending Physician: Enid Maharaj Admitting Physician: Enid Maharaj Referring Physician: AdmtrEnid Allergies, Adverse Reactions, Alerts Substance Reaction Severity [...] 09/30/20 9:23:00 EST, 04/30/20 9:21:00 EDT, Tablet, [facility], 1 tablet By Mouth Daily, [...] times a day, # 60 tablet, Refills 1, Tot. Refills 1, Maintenance, 05/28/20 14:45:00 EDT, Route to Pharmacy Electronically, [facility], 167.64, cm, 05/28/20 8:49:00 EDT, Height, 70, kg, 04/11/20 15:19:00... Start Date: 05/28/20 Stop Date: 07/27/20 Status: Ordered clotrimazole 10 mg oral lozenge 10 mg, 1, lozenge, By Mouth, 3 times a day, # 90 lozenge, Refills 1, Tot. Refills 1, Acute :23:00 EDT, 04/30/20 9:22:00 EDT, Route to Pharmacy Electronically, [facility], 167.64, cm, 04/30/20 8:23:00 EDT, Height, 70, kg, ... Start Date: 04/30/20 Stop Date: 06/30/20 Status: Ordered docusate sodium 100 mg oral capsule 100 mg, 1, capsule, By Mouth, 3 times a day, PRN, # 90 capsule, Refills 0, Tot. Refills 0, Maintenance, for constipation, 04/12/20 12:34:00 EDT, Route to Pharmacy Electronically, [facility], 167.64, cm, 04/12/20 4:21:00 EDT, Height, 7... Start Date: 04/12/20 Status: Ordered Envarsus XR 1 mg oral tablet, extended release 8 tablet = 8 mg, By Mouth, Daily in AM, # 240 tablet, 11 Refills, Maintenance, 04/30/20 9:22:00 EDT, [facility], 167.64, cm, 04/30/20 8:23:00 EDT, Height, 70, kg, 04/11/20 15:19:00 EDT, Dry Weight Start Date: 04/30/20 Status: Ordered Envarsus XR 1 mg oral tablet, extended release 8 tablet = 8 mg, By Mouth, Daily in AM, # 240 tablet, 0 Refills, Maintenance, 04/12/20 12:33:00 EDT, [facility], 167.64, cm, 04/12/20 4:21:00 EDT, [...] mL, 11 Refills, Maintenance, 04/17/20 16:49:00 EDT, [facility] #[id number], 167.64, cm, 04/16/20 8:56:00 EDT, Height, 70, kg, 04/11/20 15:19:00 EDT, Dry Weight Start Date: 04/17/20 Status: Ordered levothyroxine 0.025 mg oral tablet 1.5 tablet = 37.5 mcg, By Mouth, Daily, # 45 tablet, 11 Refills, Maintenance, 04/18/20 17:51:00 EDT, Tablet, [facility] #[id number], 167.64, cm, 04/16/20 8:56:00 EDT, Height, 70, kg, 04/11/20 15:19:00 EDT, Dry Weight Start Date: 04/18/20 Status: Ordered NIFEdipine 60 mg oral tablet, extended release 60 mg, 1, tablet, By Mouth, Daily, # 30 tablet, Refills 0, Tot. Refills 0, Maintenance, 04/14/20 16:03:00 EDT, Route to Pharmacy Electronically, [facility], 167.64, cm, 04/14/20 15:37:00 EDT, Height, 70, kg, 04/11/20 15:19:00 EDT, Dry We... Start Date: 04/14/20 Status: Ordered [place], 31 G x 5 mm BD Ultra [...] 04/30/20 9:22:00 EDT, Route to Pharmacy Electronically, [facility], 167.64, cm, 04/30/20 8:23:00 EDT, Height, 70, kg, 04/11/20 15:... Start Date: 04/30/20 Stop Date: 09/30/20 Status: Ordered Velt[place] 16.8 g oral powder for reconstitution = 16.8 Gm, By Mouth, Daily, # 30 each, 1 Refills, Maintenance, 05/29/20 17:17:00 EDT, [facility], Deliver to pt in clinic 05/31/20, 167.64, cm, 05/28/20 8:49:00 EDT, Height, 70, kg, 04/11/20 15:19:00 EDT, Dry Weight Start Date: 05/29/20 Stop Date: 07/28/20 Status: Ordered Problem List Condition Effective Dates Status Health Status Inform ant ESRD on hemodialysis(Confirmed) Active Diabetes mellitus(Confirmed) Active Hearing loss(Confirmed) 1 Active HTN (hypertension)(Confirmed) Active ADAM (obstructive sleep apnea)(Confirmed) Active Care Management [facility] , Sarah Gabriel (Confirmed) Active Subclinical hypothyroidism(Confirmed) Active 1Weighed 1.5 pounds at . 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
--- OUTSIDE RECORDS SUMMARY | 2023-06-19 12:38 | XMS_ITS | Continuity of Care Document ---
Author Name Unknown Organization [facility] Address [address] [place] [address]- Care Team Providers Care Vp Hr Diversity Name Role Phone Arleen Cooper MD Primary Care Physician [phone] [place] [facility] [place] - 04/16/[address] [address]- Allergies, Adverse Reactions, Alerts Substance Reaction Severity [...] 02/18/21 16:31:00 EDT, Route to Pharmacy Electronically, [facility] #[id number], Partial fill upon patientrequest if the prescription is for a schedule II op... Start Date: 02/18/21 Stop Date: 08/17/21 Status: Ordered B-D PEN NDL SHRT [id number](02/10) COOPER B-D PEN NDL SHRT [id number](02/10) COOPER, See Instructions, # 100 each, 0 [...] 07/18/20 11:05:00 EDT, Route to Pharmacy Electronically, [facility], 167.64, cm, 07/12/20 8:38:00 EDT, Height, 70, kg, 04/11/20 15:19:00... 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 Start Date: 04/19/20 Stop Date: 06/18/20 Status: Ordered Lantus Solostar Pen 100 units/mL subcutaneous solution = 35 units, Subcutaneous Injection, Daily at bedtime, # 12 mL, 11 Refills, Maintenance, 03/12/21 16:28:00 EDT, [facility] #[id number], 167.64, cm, 02/28/21 10:34:00 EDT, Height, 63.7, kg, 01/30/21 22:32:00 EDT, Dry Weight Start Date: 03/12/21 Status: Ordered levothyroxine 0.025 mg oral tablet 1.5 tablet = 37.5 mcg, By Mouth, Daily, # 135 tablet, 0 Refills, Maintenance, 03/27/21 10:58:00 EDT, Tablet, [facility], 167.64, cm, 02/28/21 10:34:00 EDT, Height, 63.7, kg, 01/30/2122:32:00 EDT, Dry Weight Start Date: 03/27/21 Status: Ordered Pen [place], 31 G x 5 mm BD Ultra [...] pack/packet, 1 Refills, Maintenance, 06/21/20 16:51:00 EDT, [facility], Deliver to pt in [...] ADAM (obstructive sleep apnea)(Confirmed) Active Care Management [facility] Sarah (Confirmed) Active Subclinical hypothyroidism(Confirmed) Active 1Weighed 1.5 pounds at . 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
--- OUTSIDE RECORDS SUMMARY | 2023-06-19 12:38 | XMS_ITS | Continuity of Care Document ---
Author Name Unknown Organization [facility] Address [address] [place] [address]- Care Team Providers Care Audit Intern Name Role Phone Kenneth CLARKE, Arleen Primary Care Physician [place] [facility] [place] - 01/09/[address] [address]- Allergies, Adverse Reactions, Alerts Substance Reaction Severity Status ibuprofen decreased kidney function Ac tive aspirin decresed kidney function Act nina Toradol 1 decreased kidney function Ac tive Robaxin itching Active Valium difficulty breathing Active Vicodin itching Active 1Pt states he is not allergic to this medication Immunizations Given and Recorded Vaccine Date Status Refusal Reason [id number] 12y+ bivalent booster vax 1 07/17/22 Given [...] 11/25/22 Status: Ordered B-D PEN NDL MINI [id number](12/11)PRPL USE DIRECTED FOR TYPE 1 DIABETES Start Date: 11/25/22 Status: Ordered Baqsimi One Pack 3 mg nasal powder See Instructions, 3 mg Once In one nostril; dose does not need to be inhaled may repeat in 15 minutes alternate nostrils, # 1 each, 5 Refills, Soft Stop, 09/19/22 22:47:00 EST, [facility] #[id number], Partial fill upon patient request if the [...] tablet, 11 Refills, Maintenance, 10/17/22 12:12:00 EST, [facility] #[id number], 30, TAKE 1 TABLET BY MOUTH EVERY DAY, 168, cm, 09/19/22 14:56:00 EST, Height, 60.2, kg, 07/24/22 0:30:00 EDT, Dry Weight Start Date: 10/17/22 Status: Ordered FLUoxetine 20 mg oral capsule 1, capsule, By Mouth, Daily, # 30 capsule, Refills 11, Maintenance, 09/30/22 13:35:00 EST, Route toPharmacy Electronically, [facility] #[id number], 168, cm, 09/19/22 14:56:00 EST, Height, 60.2,kg, [...] 09/02/22 15:33:00 EST, Route to Pharmacy Electronically, [facility] #[id number], 168, cm, 07/30/22 15:53:00 EDT, Height, 60.2, kg, 07/24/22 0:30:00 EDT, Dry Weight Start Date: 09/02/22 Status: Ordered glucose 4 gm oral tablet, chewable 4 tablet = 16 Gm, Chew, Once, PRN as needed for low blood sugar, # 50 tablet, 0 Refills, Soft Stop,09/19/22 22:51:00 EST, Chew Tablet, [facility] #[id number], Partial fill upon patient request if the prescription is for a schedule II opioid drug... Start Date: 09/19/22 Status: Ordered Golytely - oral powder for reconstitution See Instructions, Drink 240mL every 15 minutes until gone, # 4,000 mL, 0 Refills, Maintenance, 12/03/22 9:00:00 EST, [facility] #[id number], Partial fill upon patient request if the prescriptionis for a schedule II opioid drug., Drink 240mL ever... Start Date: 12/03/22 Status: Ordered Lantus Solostar Pen 100 units/mL subcutaneous solution See Instructions, Please take 20 units at bedtime E11.8, # 45 mL, 3 Refills, Maintenance, 12/29/22 8:07:00 EDT, Injection, [facility] #[id number], Partial fill upon patient request if the prescription is for a schedule II opioid drug., 168, cm,... Start Date: 12/29/22 Status: Ordered levothyroxine 0.025 mg oral tablet 1.5 tablet, By Mouth, Daily, # 135 tablet, 0 Refills, [facility] #[id number], 167.64, cm, 01/23/22 11:51:00 EDT, Height, 63.7, kg, 01/30/21 22:32:00 EDT, Dry Weight Start Date: 03/27/22 Status: Ordered multivitamin Vitamin B Complex with [...] BG... Start Date: 12/27/22 Status: Ordered Pen [place], 31 G x 5 mm BD Ultra [...] 0 Refills, Maintenance, 06/28/22 11:25:00 EDT, Tablet, [facility] #[id number], Partial fill upon patient request if the [...] GIVEN HE IS ON ANTI REJECTION TREATMENT [facility] REJECTION Start Date: 11/25/22 Status: Ordered tacrolimus 1 mg oral tablet, extended release = 8 mg, By Mouth, Daily in AM, Please take tacrolimus 8 mg PO daily in AM and f/u with nephrologistfor level monitoring and dose adjustment., # 30 tablet, 0 Refills, Maintenance, 07/10/22 12:57:00 EDT, XR Tablet, [facility] #[id number], Partial... Start Date: 07/10/22 Stop Date: 08/09/22 Status: Ordered tamsulosin 0.4 mg oral capsule 0.4 mg, 1, capsule, By Mouth, Daily, # 30 capsule, Refills 0, Tot. Refills 0, Maintenance, :30:00 EDT, Route to Pharmacy Electronically, [facility] #[id number], Partial fill upon patient request if the prescription is for a schedule II... Start Date: 07/21/22 Status: Ordered Trulicity Pen 0.75 mg/0.5 mL subcutaneous solution 0.5 mL = 0.75 mg, Subcutaneous Injection, Every week, rotate injection sites, # 2 mL, 5 Refills, Maintenance, 12/26/22 17:06:00 EDT, Solution, [facility] #[id number], Partial fill upon patient request if the prescription is for a schedule II opio... Start Date: 12/26/22 Status: Ordered valganciclovir 450 mg oral tablet 450 mg, 1, tablet, By Mouth, Every Thursday, Thursday and Thursday, # 26 tablet, Refills 1, Tot. Refills 1, Maintenance, 06/28/22 11:26:00 EDT, Route to Pharmacy Electronically, [facility] #[id number], Partial fill upon patient request if the [...] sleep apnea) Confirmed Active [facility] Care Management [facility], Vernell Fabina [phone] Confirmed Active Subclinical hypothyroidism Confirmed Active 1Weighed 1.5 pounds at . 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 Social History Social History Type Response Smoking Status Never smoker; Tobacc o user in household: No entered on: 09/12/15 Sex Patient Care team information Care Team Personnel Name: Desmond Anton RN Position: [facility] RN Member Role: Primary Care Nurse Name: Eliza Ch RN Position: [facility] RN Member Role: Primary Care Nurse Name: Izzy Cooper Position: [facility] RN Member Role: Primary Care Nurse Name: Elie Alex MD Position: [facility] Renal MD Member Role: Lifetime Consulting Physician Address: Address: [address] [place] [address], [facility] [address] [facility] [address] Name: Rayray Brand Position: [facility] Physician (General Medicine) Member Role: Primary Care Nurse Name: Guzman Liudmila Position: [facility] RN Member Role: Primary Care Nurse Name: Kannan Gibbs RN Position: [facility] RN Member Role: Primary Care Nurse Name: Chase Brumfield RN Position: [facility] ED RN W/OE and Tasks Member Role: Primary Care Nurse Name: Link Stein RN Position: [facility] RN Supv Member Role: Primary Care Nurse Name: Isai Weaver DO Position: [facility] Renal MD Member Role: Lifetime Consulting Physician Address: Address: [address] [place], [place] [address] [place] [address]- Name: Lor Abdullahi RN Position: [facility] RN Member Role: Primary Care Nurse Name: Charity Billings RN Position: [facility] RN Member Role: Primary Care Nurse Name: Tare Hawkins III, RN Position: [facility] RN Member Role: Primary Care Nurse Name: Yamini Soares Position: [facility] RN Member Role: Primary Care Nurse Name: Marcus Ardon RN Position: [facility] RN Member Role: Primary Care Nurse Name: Jaison Sherwood MD Position: [facility] Renal MD Member Role: Lifetime Consulting Physician Address: Address: [address] [place] [address] [address] [facility] [place] [address]- Name: Anna White RN Position: [facility] AMB Nurse Member Role: Primary Care Nurse Name: Marleny Sanchez RN Position: [facility] RN Member Role: Primary Care Nurse Name: Gabriel Chappell MD Position: [facility] Renal MD Member Role: Lifetime Consulting Physician Address: Address: [address] [place] [address] [facility] [place] [address]- Name: Muriel Page RN Position: [facility] SN RN Member Role: Primary Care Nurse Name: Marielena Sheehan RN Position: [facility] RN Member Role: Primary Care Nurse Name: Nadia Hernandez RN Position: [facility] RN Member Role: Primary Care Nurse Name: Alyssa Nguyen RN Position: [facility] RN Member Role: Primary Care Nurse Name: Елена Jules RN Position: [facility] RN Member Role: Primary Care Nurse Name: Arleen Cooper MD Position: [facility] Primary Care Physician Member Role: PCP Address: Address: [address] [place] [address]- Care Team Related Persons Name: CAMI ELIAS Address: home [address] [place] [address] Name: HERMILO PANAD Address: home [address] [address] Name: JACK PANDA Address: home [address] [place] [address]
--- OUTSIDE RECORDS SUMMARY | 2023-06-19 12:38 | XMS_ITS | Continuity of Care Document ---
Author Name Unknown Organization [facility] Address Unknown Care Team Providers Care Clinic Physician Name Role Phone Arleen Cooper MD Primary Care Physician [phone] Encounter [facility] Date(s): 05/07/21 - 06/06/21 [facility] Attending Physician: Enid Maharaj Admitting Physician: Enid [...] 02/18/21 16:31:00 EDT, Route to Pharmacy Electronically, [facility] #[id number], Partial fill upon patientrequest if the prescription is for a schedule II op... Start Date: 02/18/21 Stop Date: 08/17/21 Status: Ordered B-D PEN NDL SHRT [id number](02/10) COOPER B-D PEN NDL SHRT [id number](02/10) COOPER, See Instructions, # 100 each, 0 [...] 07/18/20 11:05:00 EDT, Route to Pharmacy Electronically, [facility], 167.64, cm, 07/12/20 8:38:00 EDT, Height, 70, kg, 04/11/20 15:19:00... 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 Start Date: 04/19/20 Stop Date: 06/18/20 Status: Ordered Lantus Solostar Pen 100 units/mL subcutaneous solution = 35 units, Subcutaneous Injection, Daily at bedtime, # 12 mL, 11 Refills, Maintenance, 03/12/21 16:28:00 EDT, [facility] #[id number], 167.64, cm, 02/28/21 10:34:00 EDT, Height, 63.7, kg, 01/30/21 22:32:00 EDT, Dry Weight Start Date: 03/12/21 Status: Ordered levothyroxine 0.025 mg oral tablet 1.5 tablet = 37.5 mcg, By Mouth, Daily, # 135 tablet, 0 Refills, Maintenance, 03/27/21 10:58:00 EDT, Tablet, [facility], 167.64, cm, 02/28/21 10:34:00 EDT, Height, 63.7, kg, 01/30/2122:32:00 EDT, Dry Weight Start Date: 03/27/21 Status: Ordered Pen [place], 31 G x 5 mm BD Ultra [...] pack/packet, 1 Refills, Maintenance, 06/21/20 16:51:00 EDT, [facility], Deliver to pt in clinic [...] ADAM (obstructive sleep apnea)(Confirmed) Active Care Management [facility] Sarah Liriano (Confirmed) Active Subclinical hypothyroidism(Confirmed) Active 1Weighed 1.5 [...]
--- OUTSIDE RECORDS SUMMARY | 2023-06-19 12:38 | XMS_ITS | Continuity of Care Document ---
Author Name Unknown Organization [facility] Address [address] [place] [address]- Care Team Providers Care Hair Or Beauty Salon Manager Name Role Phone Kenneth CLARKE, Arleen Primary Care Physician [phone] [place] [facility] [place]01[place] - 10/31/[address] [address]- Allergies, Adverse Reactions, Alerts Substance Reaction Severity Status ibuprofen decreased kidney function Ac tive aspirin decresed kidney function Act nina Toradol 1 decreased kidney function Ac tive Robaxin itching Active Valium difficulty breathing Active Vicodin itching Active 1Pt states he is not allergic to this medication Immunizations Given and Recorded Vaccine Date Status Refusal Reason [id number] 12y+ bivalent booster vax 1 07/17/22 Given [...] Note: vis Medications B-D PEN NDL SHRT [id number](02/10) COOPER B-D PEN NDL SHRT [id number](02/10) COOPER, See Instructions, # 100 each, 0 [...] each, 5 Refills, Soft Stop, 09/19/22 22:47:00 [facility] #[id number], Partial fill upon patient request if the [...] tablet, 11 Refills, Maintenance, 10/17/22 12:12:00 EST, [facility] #[id number], 30, TAKE 1 TABLET BY MOUTH EVERY DAY, 168, cm, 09/19/22 14:56:00 EST, Height, 60.2, kg, 07/24/22 0:30:00 EDT, Dry Weight Start Date: 10/17/22 Status: Ordered FLUoxetine 20 mg oral capsule 1, capsule, By Mouth, Daily, # 30 capsule, Refills 11, Maintenance, 09/30/22 13:35:00 EST, Route toPharmacy Electronically, [facility] #[id number], 168, cm, 09/19/22 14:56:00 EST, Height, 60.2,kg, [...] 09/02/22 15:33:00 EST, Route to Pharmacy Electronically, [facility] #[id number], 168, cm, 07/30/22 15:53:00 EDT, Height, 60.2, kg, 07/24/22 0:30:00 EDT, Dry Weight Start Date: 09/02/22 Status: Ordered glucose 4 gm oral tablet, chewable 4 tablet = 16 Gm, Chew, Once, PRN as needed for low blood sugar, # 50 tablet, 0 Refills, Soft Stop,09/19/22 22:51:00 EST, Chew Tablet, [facility] #[id number], Partial fill upon patient request if the prescription is for a schedule II opioid drug... Start Date: 09/19/22 Status: Ordered insulin glargine (concentrated) 300 units/mL subcutaneous solution See Instructions, 25 units s/c in the AM at the same time every day rotate injection sites, # 12 mL, 2 Refills, Maintenance, 06/29/22 11:32:00 EDT, Solution, [facility] #[id number], Partial fillupon patient request if the prescription is... Start Date: 06/29/22 Status: Ordered insulin lispro (concentrated) 200 units/mL subcutaneous solution See Instructions, 3 units Subcutaneous Infusion for FSBS of every 100 and 1 unit additional for every 40 above 100, # 12 mL, 3 Refills, Maintenance, 06/29/22 14:22:00 EDT, [facility] #[id number], Partial fill upon patient request if the prescript... Start Date: 06/29/22 Status: Ordered levothyroxine 0.025 mg oral tablet 1.5 tablet, By Mouth, Daily, # 135 tablet, 0 Refills, [facility] #[id number], 167.64, cm, 01/23/22 11:51:00 EDT, Height, 63.7, kg, 01/30/21 22:32:00 EDT, Dry Weight Start Date: 03/27/22 Status: Ordered Pen [place], 31 G x 5 mm BD Ultra [...] 0 Refills, Maintenance, 06/28/22 11:25:00 EDT, Tablet, [facility] #[id number], Partial fill upon patient request if the [...] Refills, Maintenance, 07/10/22 12:57:00 EDT, XR Tablet, [facility] #[id number], Partial... Start Date: 07/10/22 Stop Date: 08/09/22 Status: Ordered tamsulosin 0.4 mg oral capsule 0.4 mg, 1, capsule, By Mouth, Daily, # 30 capsule, Refills 0, Tot. Refills 0, Maintenance, :30:00 EDT, Route to Pharmacy Electronically, [facility] #[id number], Partial fill upon patient request if the prescription is for a schedule II... Start Date: 07/21/22 Status: Ordered valganciclovir 450 mg oral tablet 450 mg, 1, tablet, By Mouth, Every Thursday, Thursday and Thursday, # 26 tablet, Refills 1, Tot. Refills 1, Maintenance, 06/28/22 11:26:00 EDT, Route to Pharmacy Electronically, [facility] #[id number], Partial fill upon patient request if the [...] Active ADAM (obstructive sleep apnea) Confirmed Active [facility] Care Management Addy Liriano, Vernell Fabian [phone] Confirmed Active Subclinical hypothyroidism Confirmed Active 1Weighed 1.5 pounds at . 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 Social History Social History Type Response Smoking Status Never smoker; Tobacc o user in household: No entered on: 09/12/15 Sex Patient Care team information Care Team Personnel Name: Desmond Anton RN Position: [facility] RN Member Role: Primary Care Nurse Name: Eliza Ch RN Position: [facility] RN Member Role: Primary Care Nurse Name: Izzy Cooper Position: [facility] RN Member Role: Primary Care Nurse Name: Elie Alex MD Position: [facility] Renal MD Member Role: Lifetime Consulting Physician Address: Address: [address] [place] [address], [address] [facility] [place] [address]- Name: Rayray Brand Position: [facility] Physician (General Medicine) Member Role: Primary Care Nurse Name: Liudmila Hinds Position: [facility] RN Member Role: Primary Care Nurse Name: Kannan Gibbs RN Position: [facility] RN Member Role: Primary Care Nurse Name: Chase Brumfield RN Position: [facility] ED RN W/OE and Tasks Member Role: Primary Care Nurse Name: Sissy Powers RN Position: [facility] RN Member Role: Primary Care Nurse Name: Link Stein RN Position: [facility] RN Supv Member Role: Primary Care Nurse Name: Isai Weaver DO Position: [facility] Renal MD Member Role: Lifetime Consulting Physician Address: Address: [address] [place] [address] [address] [facility] [place] [place] [address]- Name: Lor Abdullahi RN Position: [facility] RN Member Role: Primary Care Nurse Name: Charity Billings RN Position: [facility] RN Member Role: Primary Care Nurse Name: Trae Hawkins III, RN Position: [facility] RN Member Role: Primary Care Nurse Name: Geoffrey Davis RN Position: [facility] RN Member Role: Primary Care Nurse Name: Yamini Soares Position: [facility] RN Member Role: Primary Care Nurse Name: Marcus Ardon RN Position: [facility] RN Member Role: Primary Care Nurse Name: Jaison Sherwood MD Position: [facility] Renal MD Member Role: Lifetime Consulting Physician Address: Address: [address] [place] [address] [address] [facility] [place] [address]- Name: Anna White RN Position: [facility] AMB Nurse Member Role: Primary Care Nurse Name: Marleny Sanchez RN Position: [facility] RN Member Role: Primary Care Nurse Name: Gabriel Chappell MD Position: [facility] Renal MD Member Role: Lifetime Consulting Physician Address: Address: [address] [place] [address] [facility] [place] [address]- Name: Muriel Paeg RN Position: [facility] SN RN Member Role: Primary Care Nurse Name: Marielena Sheehan RN Position: [facility] RN Member Role: Primary Care Nurse Name: Nadia Hernandez RN Position: [facility] RN Member Role: Primary Care Nurse Name: Alyssa Nguyen RN Position: [facility] RN Member Role: Primary Care Nurse Name: Елена Jules RN Position: [facility] RN Member Role: Primary Care Nurse Name: Arleen Cooper MD Position: [facility] Primary Care Physician Member Role: PCP Address: Address: [address] [place] [address]- Care Team Related Persons Name: CAMI ELIAS Address: home [address] [place] [address] Name: HERMILO PANDA Address: home [address] [address] Name: JACK PANDA Address: home [address] [place] [address]
--- OUTSIDE RECORDS SUMMARY | 2023-06-19 12:38 | XMS_ITS | Continuity of Care Document ---
Author Name Unknown Organization [facility] Address [address] [place] [id number]- Care Team Providers Care Credit Risk Modeler Name Role Phone Arleen Cooper MD Primary Care Physician [phone] Encounter [facility] Date(s): 04/17/20 - 05/17/[address] [address]- [facility] Allergies, Adverse Reactions, Alerts Substance Reaction Severity [...] 09/30/20 9:23:00 EST, 04/30/20 9:21:00 EDT, Tablet, [facility], 1 tablet By Mouth [...] 04/30/20 9:22:00 EDT, Route to Pharmacy Electronically, [facility], 167.64, cm, 04/30/20 8:23:00 EDT, Height, 70, kg, ... Start Date: 04/30/20 Stop Date: 06/30/20 Status: Ordered docusate sodium 100 mg oral capsule 100 mg, 1, capsule, By Mouth, 3 times a day, PRN, # 90 capsule, Refills 0, Tot. Refills 0, Maintenance, for constipation, 04/12/20 12:34:00 EDT, Route to Pharmacy Electronically, [facility], 167.64, cm, 04/12/20 4:21:00 EDT, Height, 7... Start Date: 04/12/20 Status: Ordered Envarsus XR 1 mg oral tablet, extended release 8 tablet = 8 mg, By Mouth, Daily in AM, # 240 tablet, 11 Refills, Maintenance, 04/30/20 9:22:00 EDT, [facility], 167.64, cm, 04/30/20 8:23:00 EDT, Height, 70, kg, 04/11/20 15:19:00 EDT, Dry Weight Start Date: 04/30/20 Status: Ordered Envarsus XR 1 mg oral tablet, extended release 8 tablet = 8 mg, By Mouth, Daily in AM, # 240 tablet, 0 Refills, Maintenance, 04/12/20 12:33:00 EDT, [facility], 167.64, cm, 04/12/20 4:21:00 [...] mL, 11 Refills, Maintenance, 04/17/20 16:49:00 EDT, [facility] #[id number], 167.64, cm, 04/16/20 8:56:00 EDT, Height, 70, kg, 04/11/20 15:19:00 EDT, Dry Weight Start Date: 04/17/20 Status: Ordered levothyroxine 0.025 mg oral tablet 1.5 tablet = 37.5 mcg, By Mouth, Daily, # 45 tablet, 11 Refills, Maintenance, 04/18/20 17:51:00 EDT, [facility]t, [id number], 167.64, cm, 04/16/20 8:56:00 EDT, Height, 70, kg, 04/11/20 15:19:00 EDT, Dry Weight Start Date: 04/18/20 Status: Ordered NIFEdipine 60 mg oral tablet, extended release 60 mg, 1, tablet, By Mouth, Daily, # 30 tablet, Refills 0, Tot. Refills 0, Maintenance, 04/14/20 16:03:00 EDT, Route to Pharmacy Electronically, [place] [address], 167.64, cm, 04/14/20 15:37:00 EDT, Height, 70, kg, 04/11/20 15:19:00 EDT, Dry We... Start Date: 04/14/20 Status: Ordered Pen [place], 31 G x 5 mm BD Ultra [...] 04/30/20 9:22:00 EDT, Route to Pharmacy Electronically, [facility], 167.64, cm, 04/30/20 8:23:00 EDT, Height, 70, kg, 04/11/20 15:... Start Date: 04/30/20 Stop Date: 09/30/20 Status: Ordered Problem List Condition Effective Dates Status Health Status Inform ant ESRD on hemodialysis(Confirmed) Active Diabetes mellitus(Confirmed) Active Hearing loss(Confirmed) 1 Active HTN (hypertension)(Confirmed) Active ADAM (obstructive sleep apnea)(Confirmed) Active Care Management [facility] , Sarah Gabriel (Confirmed) Active Subclinical hypothyroidism(Confirmed) Active 1Weighed 1.5 pounds at . 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
--- OUTSIDE RECORDS SUMMARY | 2023-06-19 12:38 | XMS_ITS | Continuity of Care Document ---
Author Name Unknown Organization [facility] Address [address] [place] [address]- Care Team Providers Care Top Taper Machine Name Role Phone Arleen Cooper MD Primary Care Physician [phone] Encounter [facility] Date(s): 06/21/20 - 07/21/[address] [address]- [facility] Allergies, Adverse Reactions, Alerts Substance [...] Note: vis 08/15/08 2Admin Note: vis Medications Bactrim 400 mg-80 mg oral tablet 1 tablet, By Mouth, Daily, # 30 tablet, 4 Refills, Acute 09/30/20 9:23:00 EST, 04/30/20 9:21:00 EDT, Tablet, [facility], 1 tablet By Mouth Daily, 167.64, [...] 11:05:00 EDT, Route to Pharmacy Electronically, [facility], 167.64, cm, 07/12/20 8:38:00 EDT, Height, 70, kg, 04/11/20 15:19:00... Start Date: 07/18/20 Stop Date: 08/17/20 Status: Ordered Envarsus XR 1 mg oral tablet, extended release 8 tablet = 8 mg, By Mouth, Daily in AM, # 240 tablet, 11 Refills, Maintenance, 04/30/20 9:22:00 EDT, [facility], 167.64, cm, 04/30/20 8:23:00 EDT, Height, 70, kg, 04/11/20 15:19:00 EDT, Dry Weight Start Date: 04/30/20 Status: Ordered Envarsus XR 1 mg oral tablet, extended release 4 tablet = 4 mg, By Mouth, Daily in AM, # 240 tablet, 0 Refills, Maintenance, 04/12/20 12:33:00 EDT, [facility], 167.64, cm, 04/12/20 4:21:00 EDT, Height, [...] & tomorrow, 04/19/20 15:08:00 EDT, Pt to sweet pickle maker 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 Start Date: 04/19/20 Stop Date: 06/18/20 Status: Ordered Lantus Solostar Pen 100 units/mL subcutaneous solution = 30 units, Subcutaneous Injection, Daily at bedtime, # 10 mL, 11 Refills, Maintenance, 04/17/20 16:49:00 EDT, [facility] #[id number], 167.64, cm, 04/16/20 8:56:00 EDT, Height, 70, kg, 04/11/20 15:19:00 EDT, Dry Weight Start Date: 04/17/20 Status: Ordered levothyroxine 0.025 mg oral tablet 1.5 tablet = 37.5 mcg, By Mouth, Daily, # 45 tablet, 11 Refills, Maintenance, 04/18/20 17:51:00 EDT, Tablet, [facility] #[id number], 167.64, cm, 04/16/20 8:56:00 EDT, Height, 70, kg, 04/11/20 15:19:00 EDT, Dry Weight Start Date: 04/18/20 Status: Ordered Pen [place], 31 G x 5 mm BD Ultra [...] 04/30/20 9:22:00 EDT, Route to Pharmacy Electronically, [facility], 167.64, cm, 04/30/20 8:23:00 EDT, Height, 70, kg, 04/11/20 15:... Start Date: 04/30/20 Stop Date: 09/30/20 Status: Ordered Veltassa 16.8 g oral powder for reconstitution = 16.8 Gm, By Mouth, 2 times a day, # 60 pack/packet, 1 Refills, Maintenance, 06/21/20 16:51:00 EDT, [facility], Deliver to pt in [...] ADAM (obstructive sleep apnea)(Confirmed) Active Care Management [facility] , Sarah Gabriel (Confirmed) Active Subclinical hypothyroidism(Confirmed) Active 1Weighed 1.5 pounds at . 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
--- OUTSIDE RECORDS SUMMARY | 2023-06-19 12:38 | XMS_ITS | Continuity of Care Document ---
Author Name Unknown Organization [facility] Address [address] [place] [address]- Care Team Providers Care Senior Audit Manager Name Role Phone Kenneth CLARKE, Arleen Primary Care Physician [phone] [id number]s): 01/07/23 - 02/21/23 [facility] [address] [place], [place] [address] Attending Physician: Peewee Finney MD Admitting Physician: Peewee Finney MD Allergies, Adverse Reactions, Alerts Substance Reaction Severity Status ibuprofen decreased kidney function Ac tive aspirin decresed kidney function Act nina Toradol 1 decreased kidney function Ac tive Robaxin itching Active Valium difficulty breathing Active Vicodin itching Active 1Pt states he is not allergic to this medication Immunizations Given and Recorded Vaccine Date Status Refusal Reason [id number] 12y+ bivalent booster vax 1 07/17/22 Given [...] 11/25/22 Status: Ordered B-D PEN NDL MINI [id number](12/11)PRPL USE DIRECTED FOR TYPE 1 DIABETES Start Date: 11/25/22 Status: Ordered Baqsimi One Pack 3 mg nasal powder See Instructions, 3 mg Once In one nostril; dose does not need to be inhaled may repeat in 15 minutes alternate nostrils, # 1 each, 5 Refills, Soft Stop, 09/19/22 22:47:00 EST, [facility] #[id number], Partial fill upon patient request if the [...] Maintenance, 09/30/22 13:35:00 EST, Route toPharmacy Electronically, [facility] #[id number], 168, cm, 09/19/22 14:56:00 EST, Height, 60.2,kg, [...] Refills, Soft Stop,09/19/22 22:51:00 EST, Chew Tablet, [facility] #[id number], Partial fill upon patient request if the prescription is for a schedule II opioid drug... Start Date: 09/19/22 Status: Ordered Lantus Solostar Pen 100 units/mL subcutaneous solution See Instructions, Please take 20 units at bedtime E11.8, # 45 mL, 3 Refills, Maintenance, 12/29/22 8:07:00 EDT, Injection, [facility] #[id number], Partial fill upon patient request if the prescription is for a schedule II opioid drug., 168, cm,... Start Date: 12/29/22 Status: Ordered levothyroxine 0.025 mg oral tablet 1.5 tablet, By Mouth, Daily, # 45 tablet, 10 Refills, Maintenance, 01/12/23 16:11:00 EDT, [facility] #[id number], 168, cm, 12/26/22 16:32:00 EDT, Height, 72.7, [...] BG... Start Date: 12/27/22 Status: Ordered Pen [place], 31 G x 5 mm BD Ultra [...] 0 Refills, Maintenance, 06/28/22 11:25:00 EDT, Tablet, [facility] #[id number], Partial fill upon patient request if the [...] GIVEN HE IS ON ANTI REJECTION TREATMENT [employer] TRANSPLANT REJECTION Start Date: 11/25/22 Status: Ordered tacrolimus 1 mg oral tablet, extended release = 8 mg, By Mouth, Daily in AM, Please take tacrolimus 8 mg PO daily in AM and f/u with nephrologistfor level monitoring and dose adjustment., # 30 tablet, 0 Refills, Maintenance, 07/10/22 12:57:00 EDT, XR Tablet, [facility] #[id number], Partial... Start Date: 07/10/22 Stop Date: 08/09/22 Status: Ordered tamsulosin 0.4 mg oral capsule 0.4 mg, 1, capsule, By Mouth, Daily, # 30 capsule, Refills 0, Tot. Refills 0, Maintenance, :30:00 EDT, Route to Pharmacy Electronically, [facility] #[id number], Partial fill upon patient request if the prescription is for a schedule II... Start Date: 07/21/22 Status: Ordered Trulicity Pen 0.75 mg/0.5 mL subcutaneous solution 0.5 mL = 0.75 mg, Subcutaneous Injection, Every week, rotate injection sites, # 2 mL, 5 Refills, Maintenance, 12/26/22 17:06:00 EDT, Solution, [facility] #[id number], Partial fill upon patient request if the prescription is for a schedule II opio... Start Date: 12/26/22 Status: Ordered valganciclovir 450 mg oral tablet 450 mg, 1, tablet, By Mouth, Every Thursday, Thursday and Thursday, # 26 tablet, Refills 1, Tot. Refills 1, Maintenance, 06/28/22 11:26:00 EDT, Route to Pharmacy Electronically, [facility] #[id number], Partial fill upon patient request if the [...] ADAM (obstructive sleep apnea) Confirmed Active [facility] Care Management [facility], Vernell Fabian [phone] Confirmed Active Subclinical hypothyroidism Confirmed Active 1Weighed 1.5 pounds at . 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 RN Member Role: Primary Care Nurse Name: Izzy Cooper Position: [facility] RN Member Role: Primary Care Nurse Name: Elie Alex MD Position: [facility] Renal MD Member Role: Lifetime Consulting Physician Address: Address: [address] [place] [address] [address] [facility] [place] [address]- Name: Rayray Brand Position: [facility] Physician (General Medicine) Member Role: Primary Care Nurse Name: Liudmila Hinds Position: [facility] RN Member Role: Primary Care Nurse Name: Kannan Gibbs RN Position: [facility] RN Member Role: Primary Care Nurse Name: Chase Brumfield RN Position: [facility] ED RN W/OE and Tasks Member Role: Primary Care Nurse Name: Link Stein RN Position: [facility] RN Supv Member Role: Primary Care Nurse Name: Isai Weaver DO Position: [facility] Renal MD Member Role: Lifetime Consulting Physician Address: Address: [address] [place], [place] [address] [place] [address]- Name: Lor Abdullahi RN Position: [facility] RN Member Role: Primary Care Nurse Name: Charity Billings RN Position: [facility] RN Member Role: Primary Care Nurse Name: Trae Hawkins III, RN Position: [facility] RN Member Role: Primary Care Nurse Name: Yamini Soares Position: [facility] RN Member Role: Primary Care Nurse Name: Marcus Ardon RN Position: [facility] RN Member Role: Primary Care Nurse Name: Jaison Sherwood MD Position: [facility] Renal MD Member Role: Lifetime Consulting Physician Address: Address: [address] [place] [address] [address] [facility] [place] [address]- [place] Name: Anna White RN Position: [facility] AMB Nurse Member Role: Primary Care Nurse Name: Marleny Sanchez RN Position: [facility] RN Member Role: Primary Care Nurse Name: Gabriel Chappell MD Position: [facility] Renal MD Member Role: Lifetime Consulting Physician Address: Address: [address] [place] [address] [facility] [place] [address]- Name: Muriel Page RN Position: [facility] SN RN Member Role: Primary Care Nurse Name: Marielena Sheehan RN Position: [facility] RN Member Role: Primary Care Nurse Name: David LOPEZ, Nadia Position: S RN Member Role: Primary Care Nurse Name: Dhara LOPEZ, Елена Position: [facility] RN Member Role: Primary Care Nurse Name: Arleen Cooper MD Position: [facility] Physician - Primary Care Member Role: PCP Address: Address: [address] [place] [address]- [place] Care Team Related Persons Name: CAMI ELIAS Address: [address] [place] [address] Name: HERMILO PANDA Address: [address] [address] Name: JACK PANDA Address: [address] [place] [address]
--- OUTSIDE RECORDS SUMMARY | 2023-06-19 12:38 | XMS_ITS | Continuity of Care Document ---
Author Name Unknown Organization [facility] Address [address] [place] [address]- Care Team Providers Care Narrative Writer Name Role Phone Kenneth CLARKE, Arleen Primary Care Physician [phone] Encounter [facility] Date(s): 11/05/20 - 12/05/20 [facility] [address] [place], [place] [address] Attending Physician: Enid Maharaj Admitting Physician: AdmEnid roman Referring Physician: AdmEnid roman Allergies, Adverse Reactions, Alerts Substance Reaction Severity [...] 07/18/20 11:05:00 EDT, Route to Pharmacy Electronically, [facility], 167.64, cm, 07/12/20 8:38:00 EDT, Height, 70, kg, 04/11/20 15:19:00... Start Date: 07/18/20 Stop Date: 08/17/20 Status: Ordered Envarsus XR 1 mg oral tablet, extended release 8 tablet = 8 mg, By Mouth, Daily in AM, # 240 tablet, 11 Refills, Maintenance, 04/30/20 9:22:00 EDT, [facility], 167.64, cm, 04/30/20 8:23:00 EDT, Height, 70, kg, 04/11/20 15:19:00 EDT, Dry Weight Start Date: 04/30/20 Status: Ordered Envarsus XR 1 mg oral tablet, extended release 4 tablet = 4 mg, By Mouth, Daily in AM, # 240 tablet, 0 Refills, Maintenance, 04/12/20 12:33:00 EDT, [facility], 167.64, cm, 04/12/20 4:21:00 EDT, [...] 04/19/20 15:08:00 EDT, Pt to pick up man 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 Start Date: 04/19/20 Stop Date: 06/18/20 Status: Ordered Lantus Solostar Pen 100 units/mL subcutaneous solution = 30 units, Subcutaneous Injection, Daily at bedtime, # 10 mL, 11 Refills, Maintenance, 04/17/20 16:49:00 EDT, [facility] #[id number], 167.64, cm, 04/16/20 8:56:00 EDT, Height, 70, kg, 04/11/20 15:19:00 EDT, Dry Weight Start Date: 04/17/20 Status: Ordered levothyroxine 0.025 mg oral tablet 1.5 tablet = 37.5 mcg, By Mouth, Daily, # 45 tablet, 11 Refills, Maintenance, 04/18/20 17:51:00 EDT, Tablet, [facility] #[id number], 167.64, cm, 04/16/20 8:56:00 EDT, Height, 70, kg, 04/11/20 15:19:00 EDT, Dry Weight Start Date: 04/18/20 Status: Ordered Pen [place], 31 G x 5 mm BD Ultra [...] pack/packet, 1 Refills, Maintenance, 06/21/20 16:51:00 EDT, [facility], Deliver to pt in clinic [...] ADAM (obstructive sleep apnea)(Confirmed) Active Care Management [facility] , Sarah Gabriel (Confirmed) Active Subclinical hypothyroidism(Confirmed) [...]
--- OUTSIDE RECORDS SUMMARY | 2023-06-19 12:38 | XMS_ITS | Continuity of Care Document ---
Author Name Unknown Organization [facility] Address [address] [place] [address]- Care Team Providers Care Supervisor Stripping Name Role Phone Arleen Cooper MD Primary Care Physician [place] [facility] [place] Date(s): 06/16/22 - 07/16/[address] [address] Allergies, Adverse Reactions, Alerts Substance Reaction Severity [...] Note: vis Medications B-D PEN NDL SHRT [id number](02/10) COOEPR B-D PEN NDL SHRT [id number](02/10) COOPER, See Instructions, # 100 each, 0 [...] 01/23/22 16:09:00 EDT, Route to Pharmacy Electronically, [facility] #[id number], Partial fill upon patient request if the prescription is for a jana... Start Date: 01/23/22 Status: Ordered insulin glargine (concentrated) 300 units/mL subcutaneous solution See Instructions, 18 units s/c at bedtime, # 12 mL, 2 Refills, Maintenance, 06/29/22 11:32:00 EDT, Solution, [facility] #[id number], Partial fill upon patient request if the prescription is for a schedule II opioid drug., 167, cm, 06/29/22 8:48:0... Start Date: 06/29/22 Status: Ordered insulin lispro (concentrated) 200 units/mL subcutaneous solution See Instructions, 3 units Subcutaneous Infusion for FSBS of every 100 and 1 unit additional for every 40 above 100, # 12 mL, 3 Refills, Maintenance, 06/29/22 14:22:00 EDT, [facility] #[id number], Partial fill upon patient request if the prescript... Start Date: 06/29/22 Status: Ordered levothyroxine 0.025 mg oral tablet 1.5 tablet, By Mouth, Daily, # 135 tablet, 0 Refills, [facility] #[id number], 167.64, cm, 01/23/22 11:51:00 EDT, Height, 63.7, kg, 01/30/21 22:32:00 EDT, Dry Weight Start Date: 03/27/22 Status: Ordered multivitamin Multiple Vitamins oral capsule 1 capsule, By Mouth, Daily, # 30 capsule, 0 Refills, Maintenance, 06/28/22 11:24:00 EDT, Capsule, [facility] #[id number], Partial fill upon patient request if the prescription is for a schedule II opioid drug., 1 capsule By Mouth Daily,x30 days,... Start Date: 06/28/22 Stop Date: 07/28/22 Status: Ordered mycophenolate mofetil 500 mg oral tablet = 1,500 mg, By Mouth, 2 times a day, # 180 tablet, 1 Refills, Maintenance, 06/28/22 11:24:00 EDT, Tablet, [facility] #[id number], Partial fill upon patient request if the [...] 06/28/22 Stop Date: 07/28/22 Status: Ordered Pen [place], 31 G x 5 mm BD Ultra [...] 0 Refills, Maintenance, 06/28/22 11:25:00 EDT, Tablet, [facility] #[id number], Partial fill upon patient request if the prescription is for a schedule II opioid drug., 167, cm, 06/28/22 8:15:00 EDT,... Start Date: 06/28/22 Status: Ordered PROzac 20 mg oral capsule 20 mg, 1, capsule, By Mouth, Daily, # 30 capsule, Refills 0, Tot. Refills 0, Maintenance, 07/10/22 11:33:00 EDT, Route to Pharmacy Electronically, [facility] #[id number], Partial fill upon patient request if the prescription is for a schedule II... Start Date: 07/10/22 Stop Date: 08/09/22 Status: Ordered Renvela 800 mg oral tablet 1 tablet = 800 mg, By Mouth, 3 times a day with meals, # 90 tablet, 0 Refills, Maintenance, 06/28/22 11:25:00 EDT, Tablet, [facility] #[id number], Partial fill upon patient request if the [...] 09/08/22 11:34:00 EST, 07/10/22 11:34:00 EDT, Tablet, [facility] #[id number]... Start Date: 07/10/22 Stop Date: 09/08/22 Status: Ordered tacrolimus 1 mg oral tablet, extended release = 7 mg, By Mouth, Daily in AM, Please take tacrolimus 7 mg PO daily in AM and f/u with nephrologistfor level monitoring and dose adjustment., # 210 tablet, 0 Refills, Maintenance, 07/10/22 12:57:00 EDT, XR Tablet, [facility] #[id number], Partial... Start Date: 07/10/22 Stop Date: 08/09/22 Status: Ordered valganciclovir 450 mg oral tablet 450 mg, 1, tablet, By Mouth, Every Thursday, Thursday and Thursday, # 12 tablet, Refills 1, Tot. Refills 1, Maintenance, 06/28/22 11:26:00 EDT, Route to Pharmacy Electronically, [facility] #[id number], Partial fill upon patient request if the prescr... Start Date: 06/28/22 Status: Ordered Problem List Condition Confirmation Course Effective Dates Status H ealth Status Informant Diabetes mellitus Confirmed Active Hearing loss 1 Confirmed Active -donor kidney transplant recipient 2 Confirmed 04/11/20 Active Hyperkalemia Confirmed Active HTN (hypertension) Confirmed Active Lower back pain Confirmed Active ADAM (obstructive sleep apnea) Confirmed Active N Care Management [facility], Vernell Fabian [phone] Confirmed Active Subclinical hypothyroidism Confirmed Active 1Weighed 1.5 pounds at . 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
--- OUTSIDE RECORDS SUMMARY | 2023-06-19 12:38 | XMS_ITS | Continuity of Care Document ---
Author Name Unknown Organization [facility] ion Address [address] [place] [address]- Care Team Providers Care Fitter Helper Name Role Phone Arleen Cooper MD Primary Care Physician [phone] Encounter [facility] Date(s): 04/02/20 - 05/03/20 [place] [address]- [facility] Attending Physician: Arleen Cooper MD Admitting Physician: [...] 09/30/20 9:23:00 EST, 04/30/20 9:21:00 EDT, Tablet, [facility], 1 tablet By Mouth Daily, 167.64, cm, 04/30/20 8:23:00 EDT, Height, 70, kg, 04/11/20 15:19:00 EDT, Dry Weight Start Date: 04/30/20 Stop Date: 09/30/20 Status: Ordered Bactrim 400 mg-80 mg oral tablet 1 tablet, By Mouth, Daily, # 30 tablet, 0 Refills, Acute 05/14/20 12:35:00 EDT, 04/12/20 12:33:00 EDT, Tablet, [facility], 1 tablet By Mouth Daily, [...] 04/30/20 9:22:00 EDT, Route to Pharmacy Electronically, [facility], 167.64, cm, 04/30/20 8:23:00 EDT, Height, 70, kg, 07/... Start Date: 04/30/20 Stop Date: 06/30/20 Status: Ordered clotrimazole 10 mg oral lozenge 10 mg, 1, lozenge, By Mouth, 3 times a day, sfter meals, # 90 lozenge, Refills 0, Tot. Refills 0, Acute 05/14/20 12:35:00 EDT, 04/12/20 12:33:00 EDT, Route to Pharmacy Electronically, [facility], 167.64, cm, 04/12/20 4:21:00 EDT, [place]... Start Date: 04/12/20 Stop Date: 05/14/20 Status: Ordered docusate sodium 100 mg oral capsule 100 mg, 1, capsule, By Mouth, 3 times a day, PRN, # 90 capsule, Refills 0, Tot. Refills 0, Maintenance, for constipation, 04/12/20 12:34:00 EDT, Route to Pharmacy Electronically, [facility], 167.64, cm, 04/12/20 4:21:00 EDT, Height, 7... 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 Start Date: 04/19/20 Stop Date: 06/18/20 Status: Ordered Lantus Solostar Pen 100 units/mL subcutaneous solution = 30 units, Subcutaneous Injection, Daily at bedtime, # 10 mL, 11 Refills, Maintenance, 04/17/20 16:49:00 EDT, [facility] #[id number], 167.64, cm, 04/16/20 8:56:00 EDT, Height, 70, kg, 04/11/20 15:19:00 EDT, Dry Weight Start Date: 04/17/20 Status: Ordered levothyroxine 0.025 mg oral tablet 1.5 tablet = 37.5 mcg, By Mouth, Daily, # 45 tablet, 11 Refills, Maintenance, 04/18/20 17:51:00 EDT, Tablet, [facility] #[id number], 167.64, cm, 04/16/20 8:56:00 EDT, Height, 70, kg, 04/11/20 15:19:00 EDT, Dry Weight Start Date: 04/18/20 Status: Ordered NIFEdipine 60 mg oral tablet, extended release 60 mg, 1, tablet, By Mouth, Daily, # 30 tablet, Refills 0, Tot. Refills 0, Maintenance, 04/14/20 16:03:00 EDT, Route to Pharmacy Electronically, [facility], 167.64, cm, 04/14/20 15:37:00 EDT, Height, 70, kg, 04/11/20 15:19:00 EDT, Dry We... Start Date: 04/14/20 Status: Ordered Pen [place], 31 G x 5 mm BD Ultra [...] 04/12/20 12:34:00 EDT, Route to Pharmacy Electronically, [facility], 167.64, cm, 04/12/20 4:21:00 EDT, Height, 70, kg... Start Date: 04/12/20 Stop Date: 05/14/20 Status: Ordered valganciclovir 450 mg oral tablet 450 mg, 1, tablet, By Mouth, Daily, # 30 tablet, Refills 4, Tot. Refills 4, Acute 09/30/20 9:23:00 EST, 04/30/20 9:22:00 EDT, Route to Pharmacy Electronically, [facility], 167.64, cm, 04/30/20 8:23:00 EDT, Height, 70, kg, 04/11/20 15:... Start Date: 04/30/20 Stop Date: 09/30/20 Status: Ordered valganciclovir 450 mg oral tablet 450 mg, 1, tablet, By Mouth, Daily, # 30 tablet, Refills 0, Tot. Refills 0, Acute 05/14/20 12:35:00EDT, 04/12/20 12:33:00 EDT, Route to Pharmacy Electronically, [facility], 167.64, cm, 04/12/20 4:21:00 EDT, Height, 70, kg, 04/11/20 1... Start Date: 04/12/20 Stop Date: 05/14/20 Status: Ordered Problem List Condition Effective Dates Status Health Status Inform ant ESRD on hemodialysis(Confirmed) Active Diabetes mellitus(Confirmed) Active Hearing loss(Confirmed) 1 Active HTN (hypertension)(Confirmed) Active ADAM (obstructive sleep apnea)(Confirmed) Active Care Management [facility] , Diannjacqueline Ambrocioman [phone](Confirmed) Active Subclinical hypothyroidism(Confirmed) Active 1Weighed 1.5 pounds at . 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
--- OUTSIDE RECORDS SUMMARY | 2023-06-19 12:39 | XMS_ITS | Continuity of Care Document ---
Author Name Unknown Organization [facility] Address [address] [place] [address]- Care Team Providers Care Faculty Research Assistant Name Role Phone Arleen Cooper MD Primary Care Physician [place] [facility] [place]/17/[place] - 05/17/[address] [address]- [facility] Allergies, Adverse Reactions, Alerts Substance [...] 09/30/20 9:23:00 EST, 04/30/20 9:21:00 EDT, Tablet, [facility], 1 tablet By Mouth [...] 04/30/20 9:22:00 EDT, Route to Pharmacy Electronically, [facility], 167.64, cm, 04/30/20 8:23:00 EDT, Height, 70, kg, ... Start Date: 04/30/20 Stop Date: 06/30/20 Status: Ordered docusate sodium 100 mg oral capsule 100 mg, 1, capsule, By Mouth, 3 times a day, PRN, # 90 capsule, Refills 0, Tot. Refills 0, Maintenance, for constipation, 04/12/20 12:34:00 EDT, Route to Pharmacy Electronically, [facility], 167.64, cm, 04/12/20 4:21:00 EDT, Height, 7... Start Date: 04/12/20 Status: Ordered Envarsus XR 1 mg oral tablet, extended release 8 tablet = 8 mg, By Mouth, Daily in AM, # 240 tablet, 11 Refills, Maintenance, 04/30/20 9:22:00 EDT, [facility], 167.64, cm, 04/30/20 8:23:00 EDT, Height, 70, kg, 04/11/20 15:19:00 EDT, Dry Weight Start Date: 04/30/20 Status: Ordered Envarsus XR 1 mg oral tablet, extended release 8 tablet = 8 mg, By Mouth, Daily in AM, # 240 tablet, 0 Refills, Maintenance, 04/12/20 12:33:00 EDT, [facility], 167.64, cm, 04/12/20 4:21:00 [...] & tomorrow, 04/19/20 15:08:00 EDT, 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 Start Date: 04/19/20 Stop Date: 06/18/20 Status: Ordered Lantus Solostar Pen 100 units/mL subcutaneous solution = 30 units, Subcutaneous Injection, Daily at bedtime, # 10 mL, 11 Refills, Maintenance, 04/17/20 16:49:00 EDT, [facility] #[id number], 167.64, cm, 04/16/20 8:56:00 EDT, Height, 70, kg, 04/11/20 15:19:00 EDT, Dry Weight Start Date: 04/17/20 Status: Ordered levothyroxine 0.025 mg oral tablet 1.5 tablet = 37.5 mcg, By Mouth, Daily, # 45 tablet, 11 Refills, Maintenance, 04/18/20 17:51:00 EDT, Tablet, [facility] #[id number], 167.64, cm, 04/16/20 8:56:00 EDT, Height, 70, kg, 04/11/20 15:19:00 EDT, Dry Weight Start Date: 04/18/20 Status: Ordered NIFEdipine 60 mg oral tablet, extended release 60 mg, 1, tablet, By Mouth, Daily, # 30 tablet, Refills 0, Tot. Refills 0, Maintenance, 04/14/20 16:03:00 EDT, Route to Pharmacy Electronically, [place] [address], 167.64, cm, 04/14/20 15:37:00 EDT, Height, 70, kg, 04/11/20 15:19:00 EDT, Dry We... Start Date: 04/14/20 Status: Ordered Pen [place], 31 G x 5 mm BD Ultra [...] 04/30/20 9:22:00 EDT, Route to Pharmacy Electronically, [facility], 167.64, cm, 04/30/20 8:23:00 EDT, Height, 70, kg, 04/11/20 15:... Start Date: 04/30/20 Stop Date: 09/30/20 Status: Ordered Problem List Condition Effective Dates Status Health Status Inform ant ESRD on hemodialysis(Confirmed) Active Diabetes mellitus(Confirmed) Active Hearing loss(Confirmed) 1 Active HTN (hypertension)(Confirmed) Active ADAM (obstructive sleep apnea)(Confirmed) Active Care Management [facility] , Sarah Gabriel (Confirmed) Active Subclinical hypothyroidism(Confirmed) Active 1Weighed 1.5 pounds at . 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
--- OUTSIDE RECORDS SUMMARY | 2023-06-19 12:39 | XMS_ITS | Continuity of Care Document ---
Author Name Unknown Organization [facility] Address [address] [place] [address]- Care Team Providers Care Metal Tester Name Role Phone Arleen Cooper MD Primary Care Physician Encounter [facility] Date(s): 02/01/21 - 03/03/[address] [id number] Allergies, Adverse Reactions, Alerts Substance [...] 02/18/21 16:31:00 EDT, Route to Pharmacy Electronically, [facility] #[id number], Partial fill upon patientrequest if the prescription is for a schedule II op... Start Date: 02/18/21 Stop Date: 08/17/21 Status: Ordered Blood Pressure Monitor Blood Pressure [...] 07/18/20 11:05:00 EDT, Route to Pharmacy Electronically, [facility], 167.64, cm, 07/12/20 8:38:00 EDT, Height, 70, kg, 04/11/20 15:19:00... 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 Start Date: 04/19/20 Stop Date: 06/18/20 Status: Ordered Lantus Solostar Pen 100 units/mL subcutaneous solution = 30 units, Subcutaneous Injection, Daily at bedtime, # 10 mL, 11 Refills, Maintenance, 04/17/20 16:49:00 EDT, [facility] #[id number], 167.64, cm, 04/16/20 8:56:00 EDT, Height, 70, kg, 04/11/20 15:19:00 EDT, Dry Weight Start Date: 04/17/20 Status: Ordered levothyroxine 0.025 mg oral tablet 1.5 tablet = 37.5 mcg, By Mouth, Daily, # 45 tablet, 11 Refills, Maintenance, 04/18/20 17:51:00 EDT, Tablet, [facility] #[id number], 167.64, cm, 04/16/20 8:56:00 EDT, Height, 70, kg, 04/11/20 15:19:00 EDT, Dry Weight Start Date: 04/18/20 Status: Ordered Pen [place], 31 G x 5 mm BD Ultra [...] pack/packet, 1 Refills, Maintenance, 06/21/20 16:51:00 EDT, [facility], Deliver to pt [...] ADAM (obstructive sleep apnea)(Confirmed) Active Care Management [facility] , Sarah Gabriel (Confirmed) Active Subclinical hypothyroidism(Confirmed) Active 1Weighed 1.5 pounds at . 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
--- OUTSIDE RECORDS SUMMARY | 2023-06-19 12:39 | XMS_ITS | Continuity of Care Document ---
Author Name Unknown Organization [facility] Address [address] [place] [address]- Care Team Providers Care Manager Plant Name Role Phone Arleen Cooper MD Primary Care Physician Encounter [id number] Date(s): 09/05/21 - 10/05/[address] [address] Attending Physician: Admjessie, [place] Admitting Physician: Admtr, [place] Referring Physician: Admtr, Ar8 Allergies, Adverse Reactions, [...] 02/18/21 16:31:00 EDT, Route to Pharmacy Electronically, [facility][id number], Partial fill upon patientrequest if the prescription is for a schedule II op... Start Date: 02/18/21 Stop Date: 08/17/21 Status: Ordered B-D PEN NDL SHRT [id number](02/10) COOPER B-D PEN NDL SHRT [id number](02/10) COOPER, See Instructions, # 100 each, 0 [...] 07/18/20 11:05:00 EDT, Route to Pharmacy Electronically, [facility], 167.64, cm, 07/12/20 8:38:00 EDT, Height, 70, kg, 04/11/20 15:19:00... 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 Start Date: 04/19/20 Stop Date: 06/18/20 Status: Ordered Lantus Solostar Pen 100 units/mL subcutaneous solution = 35 units, Subcutaneous Injection, Daily at bedtime, # 12 mL, 11 Refills, Maintenance, 03/12/21 16:28:00 EDT, [facility] #[id number], 167.64, cm, 02/28/21 10:34:00 EDT, Height, 63.7, kg, 01/30/21 22:32:00 EDT, Dry Weight Start Date: 03/12/21 Status: Ordered levothyroxine 0.025 mg oral tablet 1.5 tablet = 37.5 mcg, By Mouth, Daily, You are due for thyroid lab work. Go to the lab, # 135 tablet, 0 Refills, Maintenance, 06/17/21 5:30:00 EDT, Tablet, [facility], 167.64, cm, 04/04/21 10:55:00 EDT, Height, 63.7, kg, 01/30/21 22:... Start Date: 06/17/21 Status: Ordered Pen [place], 31 G x 5 mm BD Ultra [...] pack/packet, 1 Refills, Maintenance, 06/21/20 16:51:00 EDT, [facility], Deliver to pt in [...] (hypertension)(Confirmed) Active ADAM (obstructive sleep apnea)(Confirmed) Active N Care Management [facility] , Vernell Fabian [phone](Confirmed) Active Subclinical hypothyroidism(Confirmed) Active 1Weighed 1.5 pounds at . 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
--- OUTSIDE RECORDS SUMMARY | 2023-06-19 12:39 | XMS_ITS | Continuity of Care Document ---
Author Name Unknown Organization [facility] Address [address] [place] [address]- Care Team Providers Care Mixer Wet Pour Name Role Phone Arleen Cooper MD Primary Care Physician [place] [facility] [place] 07/17/22 - 08/20/[address] [id number] Attending Physician: Arleen Cooper MD Admitting Physician: [...] and Recorded Vaccine Date Status Refusal Reason [id number] 12y+ bivalent booster vax 1 07/17/22 Given [...] Note: vis Medications B-D PEN NDL SHRT [id number](02/10) COOPER B-D PEN NDL SHRT [id number](02/10) COOPER, See Instructions, # 100 each, 0 [...] capsule 300 mg, 1, capsule, By Mouth, Daily, Refills 0, Maintenance, 07/30/22 13:38:00 EDT, Partial fill upon patient request if the prescription is for a schedule II opioid drug. Start Date: 07/30/22 Status: Ordered insulin glargine (concentrated) 300 units/mL subcutaneous solution See Instructions, 25 units s/c in the AM at the same time every day rotate injection sites, # 12 mL, 2 Refills, Maintenance, 06/29/22 11:32:00 EDT, Solution, [facility] #[id number], Partial fillupon patient request if the prescription is... Start Date: 06/29/22 Status: Ordered insulin lispro (concentrated) 200 units/mL subcutaneous solution See Instructions, 3 units Subcutaneous Infusion for FSBS of every 100 and 1 unit additional for every 40 above 100, # 12 mL, 3 Refills, Maintenance, 06/29/22 14:22:00 EDT, [facility] #[id number], Partial fill upon patient request if the prescript... Start Date: 06/29/22 Status: Ordered levothyroxine 0.025 mg oral tablet 1.5 tablet, By Mouth, Daily, # 135 tablet, 0 Refills, [facility] #[id number], 167.64, cm, 01/23/22 11:51:00 EDT, Height, 63.7, kg, 01/30/21 22:32:00 EDT, Dry Weight Start Date: 03/27/22 Status: Ordered midodrine 5 mg oral tablet 2, tablet, By Mouth, 3 times a day, # 540 tablet, Refills 0, Maintenance, 08/18/22 9:03:00 EST, Route to Pharmacy Electronically, [facility] #[id number], 168, cm, 07/30/22 15:53:00 EDT, Height, 60.2, kg, 07/24/22 0:30:00 EDT, Dry Weight Start Date: 08/18/22 Status: Ordered multivitamin Multiple Vitamins oral capsule 1 capsule, By Mouth, Daily, # 30 capsule, 0 Refills, Maintenance, 06/28/22 11:24:00 EDT, Capsule, [facility] #[id number], Partial fill upon patient request if the [...] 06/28/22 Stop Date: 07/28/22 Status: Ordered Pen [place], 31 G x 5 mm BD Ultra [...] 0 Refills, Maintenance, 06/28/22 11:25:00 EDT, Tablet, [facility] #[id number], Partial fill upon patient request if the prescription is for a schedule II opioid drug., 167, cm, 06/28/22 8:15:00 EDT,... Start Date: 06/28/22 Status: Ordered PROzac 20 mg oral capsule 20 mg, 1, capsule, By Mouth, Daily, # 30 capsule, Refills 0, Tot. Refills 0, Maintenance, 07/10/22 11:33:00 EDT, Route to Pharmacy Electronically, [facility] #[id number], Partial fill upon patient request if the prescription is for a schedule II... Start Date: 07/10/22 Stop Date: 08/09/22 Status: Ordered sevelamer carbonate 800 mg oral tablet 2 tablet = 1,600 mg, By Mouth, 3 times a day with meals, 0 Refills, Maintenance, 07/30/22 13:40:00 EDT, Tablet, Partial fill upon patient request if the prescription is for a schedule II opioid drug. 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 Start Date: 07/10/22 Stop Date: 09/08/22 Status: Ordered tacrolimus 1 mg oral tablet, extended release = 8 mg, By Mouth, Daily in AM, Please take tacrolimus 8 mg PO daily in AM and f/u with nephrologistfor level monitoring and dose adjustment., # 30 tablet, 0 Refills, Maintenance, 07/10/22 12:57:00 EDT, XR Tablet, [facility] #[id number], Partial... Start Date: 07/10/22 Stop Date: 08/09/22 Status: Ordered tamsulosin 0.4 mg oral capsule 0.4 mg, 1, capsule, By Mouth, Daily, # 30 capsule, Refills 0, Tot. Refills 0, Maintenance, :30:00 EDT, Route to Pharmacy Electronically, [facility] #[id number], Partial fill upon patient request if the prescription is for a schedule II... Start Date: 07/21/22 Status: Ordered valganciclovir 450 mg oral tablet 450 mg, 1, tablet, By Mouth, Every Thursday, Thursday and Thursday, # 26 tablet, Refills 1, Tot. Refills 1, Maintenance, 06/28/22 11:26:00 EDT, Route to Pharmacy Electronically, [facility] #[id number], Partial fill upon patient request if the prescr... Start Date: 06/28/22 Stop Date: 1/1/23 Status: Ordered Problem List Condition Confirmation Course Effective Dates Status H ealth Status Informant ESRD on hemodialysis Confirmed Active Diabetes mellitus Confirmed Active Hearing loss 1 Confirmed Active -donor kidney transplant recipient 2 Confirmed 04/11/20 Active Hyperkalemia Confirmed Active HTN (hypertension) Confirmed Active Lower back pain Confirmed Active ADAM (obstructive sleep apnea) Confirmed Active [facility] Care Management Vernell Mckenzie [phone] Confirmed Active Subclinical hypothyroidism Confirmed Active 1Weighed 1.5 pounds at . 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 Social History Social History Type Response Smoking Status Never smoker; Tobacc o user in household: No entered on: 09/12/15 Sex Patient Care team information Care Team Personnel Name: Desmond Anton RN Position: [facility] RN Member Role: Primary Care Nurse Name: Eliza Ch RN Position: [facility] RN Member Role: Primary Care Nurse Name: Izzy Cooper Position: [facility] RN Member Role: Primary Care Nurse Name: Elie Alex MD Position: [facility] Renal MD Member Role: Lifetime Consulting Physician Address: Address: [address] [place] [address], [address] [facility] [place] [address]- Name: Rayray Brand Position: [facility] Physician (General Medicine) Member Role: Primary Care Nurse Name: Liudmila Hinds Position: [facility] RN Member Role: Primary Care Nurse Name: Kannan Gibbs RN Position: [facility] RN Member Role: Primary Care Nurse Name: Chase Brumfield RN Position: [facility] ED RN W/OE and Tasks Member Role: Primary Care Nurse Name: Sissy Powers RN Position: [facility] RN Member Role: Primary Care Nurse Name: Link Stein RN Position: [facility] RN Supv Member Role: Primary Care Nurse Name: Isai Weaver DO Position: [facility] Renal MD Member Role: Lifetime Consulting Physician Address: Address: [address] [place] [address] [address] [facility] [place] [address]- Name: Lor Abdullahi RN Position: [facility] RN Member Role: Primary Care Nurse Name: Charity Billings RN Position: S RN Member Role: Primary Care Nurse Name: Trae Hawkins III, RN Position: [facility] RN Member Role: Primary Care Nurse Name: Geoffrey Davis RN Position: [facility] RN Member Role: Primary Care Nurse Name: Yamini Soares Position: [facility] RN Member Role: Primary Care Nurse Name: Marcus Ardon RN Position: [facility] RN Member Role: Primary Care Nurse Name: Jaison Sherwood MD Position: [facility] Renal MD Member Role: Lifetime Consulting Physician Address: Address: [address] [place] [address] [address] [facility] [place] [address]- [place] Name: Anna White RN Position: [facility] AMB Nurse Member Role: Primary Care Nurse Name: Marleny Sanchez RN Position: [facility] RN Member Role: Primary Care Nurse Name: Gabriel Chappell MD Position: [facility] Renal MD Member Role: Lifetime Consulting Physician Address: Address: [address] [place] [address] [facility] [place] [address]- Name: Muriel Page RN Position: [facility] SN RN Member Role: Primary Care Nurse Name: Marielena Sheehan RN Position: [facility] RN Member Role: Primary Care Nurse Name: Nadia Hernandez RN Position: [facility] RN Member Role: Primary Care Nurse Name: Alyssa Nguyen RN Position: [facility] RN Member Role: Primary Care Nurse Name: Елена Jules RN Position: [facility] RN Member Role: Primary Care Nurse Name: Arleen Cooper MD Position: [facility] Primary Care Physician Member Role: PCP Address: Address: [address] [place] [address]- Care Team Related Persons Name: CAMI ELIAS Address: [address] [place] [address] Name: HERMILO PANDA Address: home [address] [address] Name: JACK PANDA Address: home [address] [place] [address]
--- OUTSIDE RECORDS SUMMARY | 2023-06-19 12:39 | XMS_ITS | Continuity of Care Document ---
Author Name Unknown Organization [facility] Address [address] [place] [address]- Care Team Providers Care Behavioral Health Tech Name Role Phone Kenneth CLARKE, Arleen Primary Care Physician [place] [facility] [place] - 01/11/[address] [address]- Allergies, Adverse Reactions, Alerts Substance Reaction Severity Status ibuprofen decreased kidney function Ac tive aspirin decresed kidney function Act nina Toradol 1 decreased kidney function Ac tive Robaxin itching Active Valium difficulty breathing Active Vicodin itching Active 1Pt states he is not allergic to this medication Immunizations Given and Recorded Vaccine Date Status Refusal Reason [id number] 12y+ bivalent booster vax 1 07/17/22 Given [...] 11/25/22 Status: Ordered B-D PEN NDL MINI [id number](12/11)PRPL USE DIRECTED FOR TYPE 1 DIABETES Start Date: 11/25/22 Status: Ordered Baqsimi One Pack 3 mg nasal powder See Instructions, 3 mg Once In one nostril; dose does not need to be inhaled may repeat in 15 minutes alternate nostrils, # 1 each, 5 Refills, Soft Stop, 09/19/22 22:47:00 EST, [facility] #[id number], Partial fill upon patient request if the [...] tablet, 11 Refills, Maintenance, 10/17/22 12:12:00 EST, [facility] #[id number], 30, TAKE 1 TABLET BY MOUTH EVERY DAY, 168, cm, 09/19/22 14:56:00 EST, Height, 60.2, kg, 07/24/22 0:30:00 EDT, Dry Weight Start Date: 10/17/22 Status: Ordered FLUoxetine 20 mg oral capsule 1, capsule, By Mouth, Daily, # 30 capsule, Refills 11, Maintenance, 09/30/22 13:35:00 EST, Route toPharmacy Electronically, [facility] #[id number], 168, cm, 09/19/22 14:56:00 EST, Height, 60.2,kg, [...] 09/02/22 15:33:00 EST, Route to Pharmacy Electronically, [facility] #[id number], 168, cm, 07/30/22 15:53:00 EDT, Height, 60.2, kg, 07/24/22 0:30:00 EDT, Dry Weight Start Date: 09/02/22 Status: Ordered glucose 4 gm oral tablet, chewable 4 tablet = 16 Gm, Chew, Once, PRN as needed for low blood sugar, # 50 tablet, 0 Refills, Soft Stop,09/19/22 22:51:00 EST, Chew Tablet, [facility] #[id number], Partial fill upon patient request if the prescription is for a schedule II opioid drug... Start Date: 09/19/22 Status: Ordered Golytely - oral powder for reconstitution See Instructions, Drink 240mL every 15 minutes until gone, # 4,000 mL, 0 Refills, Maintenance, 12/03/22 9:00:00 EST, [facility] #[id number], Partial fill upon patient request if the prescriptionis for a schedule II opioid drug., Drink 240mL ever... Start Date: 12/03/22 Status: Ordered Lantus Solostar Pen 100 units/mL subcutaneous solution See Instructions, Please take 20 units at bedtime E11.8, # 45 mL, 3 Refills, Maintenance, 12/29/22 8:07:00 EDT, Injection, [facility] #[id number], Partial fill upon patient request if the prescription is for a schedule II opioid drug., 168, cm,... Start Date: 12/29/22 Status: Ordered levothyroxine 0.025 mg oral tablet 1.5 tablet, By Mouth, Daily, # 135 tablet, 0 Refills, [facility] #[id number], 167.64, cm, 01/23/22 11:51:00 EDT, Height, 63.7, [...] BG... Start Date: 12/27/22 Status: Ordered Pen [place], 31 G x 5 mm BD Ultra [...] 0 Refills, Maintenance, 06/28/22 11:25:00 EDT, Tablet, [facility] #[id number], Partial fill upon patient request if the [...] GIVEN HE IS ON ANTI REJECTION TREATMENT [facility] TRANSPLANT REJECTION Start Date: 11/25/22 Status: Ordered tacrolimus 1 mg oral tablet, extended release = 8 mg, By Mouth, Daily in AM, Please take tacrolimus 8 mg PO daily in AM and f/u with nephrologistfor level monitoring and dose adjustment., # 30 tablet, 0 Refills, Maintenance, 07/10/22 12:57:00 EDT, XR Tablet, [facility] #[id number], Partial... Start Date: 07/10/22 Stop Date: 08/09/22 Status: Ordered tamsulosin 0.4 mg oral capsule 0.4 mg, 1, capsule, By Mouth, Daily, # 30 capsule, Refills 0, Tot. Refills 0, Maintenance, :30:00 EDT, Route to Pharmacy Electronically, [facility] #[id number], Partial fill upon patient request if the prescription is for a schedule II... Start Date: 07/21/22 Status: Ordered Trulicity Pen 0.75 mg/0.5 mL subcutaneous solution 0.5 mL = 0.75 mg, Subcutaneous Injection, Every week, rotate injection sites, # 2 mL, 5 Refills, Maintenance, 12/26/22 17:06:00 EDT, Solution, [facility] #[id number], Partial fill upon patient request if the prescription is for a schedule II opio... Start Date: 12/26/22 Status: Ordered valganciclovir 450 mg oral tablet 450 mg, 1, tablet, By Mouth, Every Thursday, Thursday and Thursday, # 26 tablet, Refills 1, Tot. Refills 1, Maintenance, 06/28/22 11:26:00 EDT, Route to Pharmacy Electronically, [facility] #[id number], Partial fill upon patient request if the [...] Active ADAM (obstructive sleep apnea) Confirmed Active [facility] Care Management [facility], Vernell Fabian [phone] Confirmed Active Subclinical hypothyroidism Confirmed Active 1Weighed 1.5 pounds at . 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 Social History Social History Type Response Smoking Status Never smoker; Tobacc o user in household: No entered on: 09/12/15 Sex Patient Care team information Care Team Personnel Name: Desmond Anton RN Position: [facility] RN Member Role: Primary Care Nurse Name: Eliza Ch RN Position: [facility] RN Member Role: Primary Care Nurse Name: Izzy Cooper Position: [facility] RN Member Role: Primary Care Nurse Name: Elie Alex MD Position: [facility] Renal MD Member Role: Lifetime Consulting Physician Address: Address: [address] [place] [address], [facility] [address] [facility] [address] Name: Rayray Brand Position: [facility] Physician (General Medicine) Member Role: Primary Care Nurse Name: Guzman Liudmila Position: [facility] RN Member Role: Primary Care Nurse Name: Kannan Gibbs RN Position: [facility] RN Member Role: Primary Care Nurse Name: Chase Brumfield RN Position: [facility] ED RN W/OE and Tasks Member Role: Primary Care Nurse Name: Link Stein RN Position: [facility] RN Supv Member Role: Primary Care Nurse Name: Isai Weaver DO Position: [facility] Renal MD Member Role: Lifetime Consulting Physician Address: Address: [address] [place], [place] [address] [place] [address]- Name: Lor Abdullahi RN Position: [facility] RN Member Role: Primary Care Nurse Name: Charity Billings RN Position: [facility] RN Member Role: Primary Care Nurse Name: Trae Hawkins III, RN Position: [facility] RN Member Role: Primary Care Nurse Name: Yamini Soares Position: [facility] RN Member Role: Primary Care Nurse Name: Marcus Ardon RN Position: [facility] RN Member Role: Primary Care Nurse Name: Jaison Sherwood MD Position: [facility] Renal MD Member Role: Lifetime Consulting Physician Address: Address: [address] [place] [address] [address] [facility] [place] [address]- Name: Anna White RN Position: [facility] AMB Nurse Member Role: Primary Care Nurse Name: Marleny Sanchez RN Position: [facility] RN Member Role: Primary Care Nurse Name: Gabriel Chappell MD Position: [facility] Renal MD Member Role: Lifetime Consulting Physician Address: Address: [address] [place] [address] [facility] [place] [address]- Name: Muriel Page RN Position: [facility] SN RN Member Role: Primary Care Nurse Name: Marielena Sheehan RN Position: [facility] RN Member Role: Primary Care Nurse Name: Nadia Hernandez RN Position: [facility] RN Member Role: Primary Care Nurse Name: Alyssa Nguyen RN Position: [facility] RN Member Role: Primary Care Nurse Name: Елена Jules RN Position: [facility] RN Member Role: Primary Care Nurse Name: Arleen Cooper MD Position: [facility] Primary Care Physician Member Role: PCP Address: Address: [address] [place] [id number]- Care Team Related Persons Name: CAMI ELIAS Address: home [address] [place] [address] Name: HERMILO PANDA Address: home [address] [address] Name: JACK PANDA Address: home [address] [place] [address]
--- OUTSIDE RECORDS SUMMARY | 2023-06-19 12:39 | XMS_ITS | Continuity of Care Document ---
Author Name Unknown Organization [facility] Address [address] [place] [address]- Care Team Providers Care Chain Sales Representative Name Role Phone Arleen Cooper MD Primary Care Physician Encounter [facility] [place] Date(s): 08/16/21 - 09/15/[address] [address] Allergies, Adverse Reactions, Alerts Substance Reaction [...] 02/18/21 16:31:00 EDT, Route to Pharmacy Electronically, [facility] #[id number], Partial fill upon patientrequest if the prescription is for a schedule II op... Start Date: 02/18/21 Stop Date: 08/17/21 Status: Ordered B-D PEN NDL SHRT [id number](02/10) COOPER B-D PEN NDL SHRT [id number](02/10) COOPER, See Instructions, # 100 each, 0 [...] 07/18/20 11:05:00 EDT, Route to Pharmacy Electronically, [facility], 167.64, cm, 07/12/20 8:38:00 EDT, Height, 70, kg, 04/11/20 15:19:00... 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 Start Date: 04/19/20 Stop Date: 06/18/20 Status: Ordered Lantus Solostar Pen 100 units/mL subcutaneous solution = 35 units, Subcutaneous Injection, Daily at bedtime, # 12 mL, 11 Refills, Maintenance, 03/12/21 16:28:00 EDT, [facility] #[id number], 167.64, cm, 02/28/21 10:34:00 EDT, Height, 63.7, kg, 01/30/21 22:32:00 EDT, Dry Weight Start Date: 03/12/21 Status: Ordered levothyroxine 0.025 mg oral tablet 1.5 tablet = 37.5 mcg, By Mouth, Daily, You are due for thyroid lab work. Go to the lab, # 135 tablet, 0 Refills, Maintenance, 06/17/21 5:30:00 EDT, Tablet, [facility], 167.64, cm, 04/04/21 10:55:00 EDT, Height, 63.7, kg, 01/30/21 22:... Start Date: 06/17/21 Status: Ordered Pen [place], 31 G x 5 mm BD Ultra [...] pack/packet, 1 Refills, Maintenance, 06/21/20 16:51:00 EDT, [facility], Deliver to pt in clinic [...] (hypertension)(Confirmed) Active ADAM (obstructive sleep apnea)(Confirmed) Active [facility] Care Management [facility] , Vernell Fabian [phone](Confirmed) Active Subclinical hypothyroidism(Confirmed) Active 1Weighed 1.5 pounds at . 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
--- OUTSIDE RECORDS SUMMARY | 2023-06-19 12:39 | XMS_ITS | Continuity of Care Document ---
Author Name Unknown Organization [facility] Address [address] [place] [address]- Care Team Providers Care Wrapper Opener Name Role Phone Kenneth CLARKE, Arleen Primary Care Physician Encounter [facility] [place] [place] Date(s): 06/05/22 - 07/05/22 [facility] [address] [place] [address]- Attending Physician: AdmEnid roman Admitting Physician: AdmtrEnid Referring Physician: Admtr, Enid [...] Note: vis Medications B-D PEN NDL SHRT [id number](02/10) OCOPER B-D PEN NDL SHRT [id number](02/10) COOPER, See Instructions, # 100 each, 0 [...] Status: Ordered carvedilol 12.5 mg oral tablet See Instructions, TAKE ONE TABLET BY MOUTH TWO TIMES A DAY, # 180 tablet, Refills 3, Maintenance, 06/10/22 17:00:00 EDT, Instructions Replace Required Details, Route to Pharmacy Electronically, [facility], 167, cm, 06/10/22 15:12:00 E... Start Date: 06/10/22 Status: Ordered FREESTYLE LITE BLOOD GLUCOSE STRIPS [...] 01/23/22 16:09:00 EDT, Route to Pharmacy Electronically, [facility] #[id number], Partial fill upon patient request if the prescription is for a jana... Start Date: 01/23/22 Status: Ordered insulin glargine (concentrated) 300 units/mL subcutaneous solution See Instructions, 18 units s/c at bedtime, # 12 mL, 2 Refills, Maintenance, 06/29/22 11:32:00 EDT, Solution, [facility] #[id number], Partial fill upon patient request if the prescription is for a schedule II opioid drug., 167, cm, 06/29/22 8:48:0... Start Date: 06/29/22 Status: Ordered insulin lispro (concentrated) 200 units/mL subcutaneous solution See Instructions, 3 units Subcutaneous Infusion for FSBS of every 100 and 1 unit additional for every 40 above 100, # 12 mL, 3 Refills, Maintenance, 06/29/22 14:22:00 EDT, [facility] #[id number], Partial fill upon patient request if the prescript... Start Date: 06/29/22 Status: Ordered levothyroxine 0.025 mg oral tablet 1.5 tablet, By Mouth, Daily, # 135 tablet, 0 Refills, [facility] #[id number], 167.64, cm, 01/23/22 11:51:00 EDT, Height, 63.7, kg, 01/30/21 22:32:00 EDT, Dry Weight Start Date: 03/27/22 Status: Ordered multivitamin Multiple Vitamins oral capsule 1 capsule, By Mouth, Daily, # 30 capsule, 0 Refills, Maintenance, 06/28/22 11:24:00 EDT, Capsule, [facility] #[id number], Partial fill upon patient request if the prescription is for a schedule II opioid drug., 1 capsule By Mouth Daily,x30 days,... Start Date: 06/28/22 Stop Date: 07/28/22 Status: Ordered mycophenolate mofetil 500 mg oral tablet = 1,500 mg, By Mouth, 2 times a day, # 180 tablet, 1 Refills, Maintenance, 06/28/22 11:24:00 EDT, Tablet, [facility] #[id number], Partial fill upon patient request if the prescription is for a schedule II opioid drug., 167, cm, 06/28/22 8:15:00 E... Start Date: 06/28/22 Stop Date: 08/27/22 Status: Ordered NIFEdipine 60 mg oral tablet, extended release 60 mg, 1, tablet, By Mouth, Daily, # 30 tablet, Refills 0, Tot. Refills 0, Maintenance, 06/28/22 11:25:00 EDT, Route to Pharmacy Electronically, [facility] #[id number], Partial fill upon patientrequest if the prescription is for a schedule II op... Start Date: 06/28/22 Status: Ordered pantoprazole 40 mg oral delayed release tablet = 40 mg, By Mouth, Daily, # 30 tablet, 0 Refills, Maintenance, 06/28/22 11:25:00 EDT, EC Tablet, 167, cm, 06/28/22 8:15:00 EDT, Height, 69.75, kg, 06/10/22 1:04:00 EDT, Dry Weight Start Date: 06/28/22 Stop Date: 07/28/22 Status: Ordered Pen [place], 31 G x 5 mm BD Ultra [...] 0 Refills, Maintenance, 06/28/22 11:25:00 EDT, Tablet, [facility] #[id number], Partial fill upon patient request if the prescription is for a schedule II opioid drug., 167, cm, 06/28/22 8:15:00 EDT,... Start Date: 06/28/22 Status: Ordered PROzac 20 mg oral capsule 20 mg, 1, capsule, By Mouth, Daily, # 30 capsule, Refills 0, Maintenance, 06/09/22 19:01:00 EDT, Partial fill upon patient request if the prescription is for a schedule II opioid drug. Start Date: 06/09/22 Status: Ordered Renvela 800 mg oral tablet 1 tablet = 800 mg, By Mouth, 3 times a day with meals, # 90 tablet, 0 Refills, Maintenance, 06/28/22 11:25:00 EDT, Tablet, [facility] #[id number], Partial fill upon patient request if the prescription is for a schedule II opioid drug., 167, cm, 1... 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 Start Date: 06/28/22 Stop Date: 08/27/22 Status: Ordered tacrolimus 1 mg oral capsule, extended release = 6 mg, By Mouth, Daily in AM, # 30 capsule, 1 Refills, Maintenance, 06/28/22 11:23:00 EDT, ER Capsule, [facility] #[id number], Partial fill upon patient request if the prescription is for a schedule II opioid drug., 167, cm, 06/28/22 8:15:00 EDT... Start Date: 06/28/22 Stop Date: 08/27/22 Status: Ordered valganciclovir 450 mg oral tablet 450 mg, 1, tablet, By Mouth, Every Thursday, Thursday and Thursday, # 12 tablet, Refills 1, Tot. Refills 1, Maintenance, 06/28/22 11:26:00 EDT, Route to Pharmacy Electronically, [facility] #[id number], Partial fill upon patient request if the prescr... Start Date: 06/28/22 Status: Ordered Problem List Condition Confirmation Course Effective Dates Status H ealth Status Informant Diabetes mellitus Confirmed Active Hearing loss 1 Confirmed Active -donor kidney transplant recipient 2 Confirmed 04/11/20 Active Hyperkalemia Confirmed Active HTN (hypertension) Confirmed Active Lower back pain Confirmed Active ADAM (obstructive sleep apnea) Confirmed Active [facility] Care Management [facility], Vernell Fabian [phone] Confirmed Active Subclinical hypothyroidism Confirmed Active 1Weighed 1.5 pounds at . 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
--- OUTSIDE RECORDS SUMMARY | 2023-06-19 12:39 | XMS_ITS | Continuity of Care Document ---
Author Name Unknown Organization [facility] Address [address] [place] [address]- Care Team Providers Care Auto Transport Driver Name Role Phone Arleen Cooper MD Primary Care Physician [place] [facility] [place] 07/30/21 - 08/29/[address] [address]- Allergies, Adverse Reactions, Alerts Substance Reaction Severity [...] 02/18/21 16:31:00 EDT, Route to Pharmacy Electronically, [facility] #[id number], Partial fill upon patientrequest if the prescription is for a schedule II op... Start Date: 02/18/21 Stop Date: 08/17/21 Status: Ordered B-D PEN NDL SHRT [id number](02/10) COOPER B-D PEN NDL SHRT [id number](02/10) COOPER, See Instructions, # 100 each, 0 [...] 07/18/20 11:05:00 EDT, Route to Pharmacy Electronically, [facility], 167.64, cm, 07/12/20 8:38:00 EDT, Height, 70, kg, 04/11/20 15:19:00... 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 Start Date: 04/19/20 Stop Date: 06/18/20 Status: Ordered Lantus Solostar Pen 100 units/mL subcutaneous solution = 35 units, Subcutaneous Injection, Daily at bedtime, # 12 mL, 11 Refills, Maintenance, 03/12/21 16:28:00 EDT, [facility] #[id number], 167.64, cm, 02/28/21 10:34:00 EDT, Height, 63.7, kg, 01/30/21 22:32:00 EDT, Dry Weight Start Date: 03/12/21 Status: Ordered levothyroxine 0.025 mg oral tablet 1.5 tablet = 37.5 mcg, By Mouth, Daily, You are due for thyroid lab work. Go to the lab, # 135 tablet, 0 Refills, Maintenance, 06/17/21 5:30:00 EDT, Tablet, [facility], 167.64, cm, 04/04/21 10:55:00 EDT, Height, 63.7, kg, 01/30/21 22:... Start Date: 06/17/21 Status: Ordered Pen [place], 31 G x 5 mm BD Ultra [...] pack/packet, 1 Refills, Maintenance, 06/21/20 16:51:00 EDT, [facility], Deliver to pt in clinic [...] (obstructive sleep apnea)(Confirmed) Active [facility] Care Management [facility] , Vernell Rui [phone](Confirmed) Active Subclinical hypothyroidism(Confirmed) Active 1Weighed 1.5 pounds at . 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
--- OUTSIDE RECORDS SUMMARY | 2023-06-19 12:39 | XMS_ITS | Continuity of Care Document ---
Author Name Unknown Organization [facility] Address [address] [place] [address]- Care Team Providers Care Tactical Intelligence Officer Name Role Phone Arleen Cooper MD Primary Care Physician [place] [facility] - 05/18/[address] [address]- [facility] Allergies, Adverse Reactions, Alerts Substance Reaction [...] 09/30/20 9:23:00 EST, 04/30/20 9:21:00 EDT, Tablet, [facility], 1 tablet By Mouth [...] 04/30/20 9:22:00 EDT, Route to Pharmacy Electronically, [facility], 167.64, cm, 04/30/20 8:23:00 EDT, Height, 70, kg, ... Start Date: 04/30/20 Stop Date: 06/30/20 Status: Ordered docusate sodium 100 mg oral capsule 100 mg, 1, capsule, By Mouth, 3 times a day, PRN, # 90 capsule, Refills 0, Tot. Refills 0, Maintenance, for constipation, 04/12/20 12:34:00 EDT, Route to Pharmacy Electronically, [facility], 167.64, cm, 04/12/20 4:21:00 EDT, Height, 7... Start Date: 04/12/20 Status: Ordered Envarsus XR 1 mg oral tablet, extended release 8 tablet = 8 mg, By Mouth, Daily in AM, # 240 tablet, 11 Refills, Maintenance, 04/30/20 9:22:00 EDT, [facility], 167.64, cm, 04/30/20 8:23:00 EDT, Height, 70, kg, 04/11/20 15:19:00 EDT, Dry Weight Start Date: 04/30/20 Status: Ordered Envarsus XR 1 mg oral tablet, extended release 8 tablet = 8 mg, By Mouth, Daily in AM, # 240 tablet, 0 Refills, Maintenance, 04/12/20 12:33:00 EDT, [facility], 167.64, cm, 04/12/20 4:21:00 [...] mL, 11 Refills, Maintenance, 04/17/20 16:49:00 EDT, [facility] #[id number], 167.64, cm, 04/16/20 8:56:00 EDT, Height, 70, kg, 04/11/20 15:19:00 EDT, Dry Weight Start Date: 04/17/20 Status: Ordered levothyroxine 0.025 mg oral tablet 1.5 tablet = 37.5 mcg, By Mouth, Daily, # 45 tablet, 11 Refills, Maintenance, 04/18/20 17:51:00 EDT, [id number], 167.64, cm, 04/16/20 8:56:00 EDT, Height, 70, kg, 04/11/20 15:19:00 EDT, Dry Weight Start Date: 04/18/20 Status: Ordered NIFEdipine 60 mg oral tablet, extended release 60 mg, 1, tablet, By Mouth, Daily, # 30 tablet, Refills 0, Tot. Refills 0, Maintenance, 04/14/20 16:03:00 EDT, Route to Pharmacy Electronically, [place] [address], 167.64, cm, 04/14/20 15:37:00 EDT, Height, 70, kg, 04/11/20 15:19:00 EDT, Dry We... Start Date: 04/14/20 Status: Ordered Pen [place], 31 G x 5 mm BD Ultra [...] 04/30/20 9:22:00 EDT, Route to Pharmacy Electronically, [facility], 167.64, cm, 04/30/20 8:23:00 EDT, Height, 70, kg, 04/11/20 15:... Start Date: 04/30/20 Stop Date: 09/30/20 Status: Ordered Problem List Condition Effective Dates Status Health Status Inform ant ESRD on hemodialysis(Confirmed) Active Diabetes mellitus(Confirmed) Active Hearing loss(Confirmed) 1 Active HTN (hypertension)(Confirmed) Active ADAM (obstructive sleep apnea)(Confirmed) Active Care Management [facility] , Sarah Gabriel (Confirmed) Active Subclinical hypothyroidism(Confirmed) Active 1Weighed 1.5 pounds at . 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
--- OUTSIDE RECORDS SUMMARY | 2023-06-19 12:39 | XMS_ITS | Continuity of Care Document ---
Author Name Unknown Organization [facility] Address [address] [place] [address]- Care Team Providers Care Bow Maker Gift Wrapping Name Role Phone Arleen Cooper MD Primary Care Physician [phone] Encounter [facility] [id number] Date(s): 02/20/21 - 04/14/[address] [address]- Attending Physician: Not on Staff, Attending MD Allergies, Adverse Reactions, Alerts Substance Reaction [...] 02/18/21 16:31:00 EDT, Route to Pharmacy Electronically, [facility] #[id number], Partial fill upon patientrequest if the prescription is for a schedule II op... Start Date: 02/18/21 Stop Date: 08/17/21 Status: Ordered B-D PEN NDL SHRT [id number](02/10) COOPER B-D PEN NDL SHRT [id number](02/10) COOPER, See Instructions, # 100 each, 0 [...] 07/18/20 11:05:00 EDT, Route to Pharmacy Electronically, [facility], 167.64, cm, 07/12/20 8:38:00 EDT, Height, 70, kg, 04/11/20 15:19:00... 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 Start Date: 04/19/20 Stop Date: 06/18/20 Status: Ordered Lantus Solostar Pen 100 units/mL subcutaneous solution = 35 units, Subcutaneous Injection, Daily at bedtime, # 12 mL, 11 Refills, Maintenance, 03/12/21 16:28:00 EDT, [facility] #[id number], 167.64, cm, 02/28/21 10:34:00 EDT, Height, 63.7, kg, 01/30/21 22:32:00 EDT, Dry Weight Start Date: 03/12/21 Status: Ordered levothyroxine 0.025 mg oral tablet 1.5 tablet = 37.5 mcg, By Mouth, Daily, # 135 tablet, 0 Refills, Maintenance, 03/27/21 10:58:00 EDT, Tablet, [facility], 167.64, cm, 02/28/21 10:34:00 EDT, Height, 63.7, kg, 01/30/2122:32:00 EDT, Dry Weight Start Date: 03/27/21 Status: Ordered Pen [place], 31 G x 5 mm BD Ultra [...] pack/packet, 1 Refills, Maintenance, 06/21/20 16:51:00 EDT, [facility], Deliver to pt in [...] apnea)(Confirmed) Active Care Management [facility] Sarah (Confirmed) Active Subclinical hypothyroidism(Confirmed) Active 1Weighed 1.5 pounds at . 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
--- OUTSIDE RECORDS SUMMARY | 2023-06-19 12:39 | XMS_ITS | Continuity of Care Document ---
Author Name Unknown Organization [facility] Address [address] [place] [address]- Care Team Providers Care Pickling Solution Maker Name Role Phone Kenneth CLARKE, Arleen Primary Care Physician Encounter [facility] [place] Date(s): 12/02/22 - 01/01/[address] [address]- Allergies, Adverse Reactions, Alerts Substance Reaction Severity Status ibuprofen decreased kidney function Ac tive aspirin decresed kidney function Act nina Toradol 1 decreased kidney function Ac tive Robaxin itching Active Valium difficulty breathing Active Vicodin itching Active 1Pt states he is not allergic to this medication Immunizations Given and Recorded Vaccine Date Status Refusal Reason [id number] 12y+ bivalent booster vax 1 07/17/22 Given [...] 11/25/22 Status: Ordered B-D PEN NDL MINI [id number](12/11)PRPL USE DIRECTED FOR TYPE 1 DIABETES Start Date: 11/25/22 Status: Ordered Baqsimi One Pack 3 mg nasal powder See Instructions, 3 mg Once In one nostril; dose does not need to be inhaled may repeat in 15 minutes alternate nostrils, # 1 each, 5 Refills, Soft Stop, 09/19/22 22:47:00 EST, [facility] #[id number], Partial fill upon patient request if the [...] tablet, 11 Refills, Maintenance, 10/17/22 12:12:00 EST, [facility] #[id number], 30, TAKE 1 TABLET BY MOUTH EVERY DAY, 168, cm, 09/19/22 14:56:00 EST, Height, 60.2, kg, 07/24/22 0:30:00 EDT, Dry Weight Start Date: 10/17/22 Status: Ordered FLUoxetine 20 mg oral capsule 1, capsule, By Mouth, Daily, # 30 capsule, Refills 11, Maintenance, 09/30/22 13:35:00 EST, Route toPharmacy Electronically, [facility] #[id number], 168, cm, 09/19/22 14:56:00 EST, Height, 60.2,kg, [...] 09/02/22 15:33:00 EST, Route to Pharmacy Electronically, [facility] #[id number], 168, cm, 07/30/22 15:53:00 EDT, Height, 60.2, kg, 07/24/22 0:30:00 EDT, Dry Weight Start Date: 09/02/22 Status: Ordered glucose 4 gm oral tablet, chewable 4 tablet = 16 Gm, Chew, Once, PRN as needed for low blood sugar, # 50 tablet, 0 Refills, Soft Stop,09/19/22 22:51:00 EST, Chew Tablet, [facility] #[id number], Partial fill upon patient request if the prescription is for a schedule II opioid drug... Start Date: 09/19/22 Status: Ordered Golytely - oral powder for reconstitution See Instructions, Drink 240mL every 15 minutes until gone, # 4,000 mL, 0 Refills, Maintenance, 12/03/22 9:00:00 EST, [facility] #[id number], Partial fill upon patient request if the prescriptionis for a schedule II opioid drug., Drink 240mL ever... Start Date: 12/03/22 Status: Ordered Lantus Solostar Pen 100 units/mL subcutaneous solution See Instructions, Please take 20 units at bedtime E11.8, # 45 mL, 3 Refills, Maintenance, 12/29/22 8:07:00 EDT, Injection, [facility] #[id number], Partial fill upon patient request if the prescription is for a schedule II opioid drug., 168, cm,... Start Date: 12/29/22 Status: Ordered levothyroxine 0.025 mg oral tablet 1.5 tablet, By Mouth, Daily, # 135 tablet, 0 Refills, [facility] #[id number], 167.64, cm, 01/23/22 11:51:00 EDT, Height, 63.7, [...] BG... Start Date: 12/27/22 Status: Ordered Pen [place], 31 G x 5 mm BD Ultra [...] 0 Refills, Maintenance, 06/28/22 11:25:00 EDT, Tablet, [facility] #[id number], Partial fill upon patient request if the [...] GIVEN HE IS ON ANTI REJECTION TREATMENT [facility] TRANSPLANT REJECTION Start Date: 11/25/22 Status: Ordered tacrolimus 1 mg oral tablet, extended release = 8 mg, By Mouth, Daily in AM, Please take tacrolimus 8 mg PO daily in AM and f/u with nephrologistfor level monitoring and dose adjustment., # 30 tablet, 0 Refills, Maintenance, 07/10/22 12:57:00 EDT, XR Tablet, [facility] #[id number], Partial... Start Date: 07/10/22 Stop Date: 08/09/22 Status: Ordered tamsulosin 0.4 mg oral capsule 0.4 mg, 1, capsule, By Mouth, Daily, # 30 capsule, Refills 0, Tot. Refills 0, Maintenance, :30:00 EDT, Route to Pharmacy Electronically, [facility] #[id number], Partial fill upon patient request if the prescription is for a schedule II... Start Date: 07/21/22 Status: Ordered Trulicity Pen 0.75 mg/0.5 mL subcutaneous solution 0.5 mL = 0.75 mg, Subcutaneous Injection, Every week, rotate injection sites, # 2 mL, 5 Refills, Maintenance, 12/26/22 17:06:00 EDT, Solution, [facility] #[id number], Partial fill upon patient request if the prescription is for a schedule II opio... Start Date: 12/26/22 Status: Ordered valganciclovir 450 mg oral tablet 450 mg, 1, tablet, By Mouth, Every Thursday, Thursday and Thursday, # 26 tablet, Refills 1, Tot. Refills 1, Maintenance, 06/28/22 11:26:00 EDT, Route to Pharmacy Electronically, [facility] #[id number], Partial fill upon patient request if the [...] ADAM (obstructive sleep apnea) Confirmed Active [facility] Care Management [facility], Vernell Fabian [phone] Confirmed Active Subclinical hypothyroidism Confirmed Active 1Weighed 1.5 pounds at . 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 Social History Social History Type Response Smoking Status Never smoker; Tobacc o user in household: No entered on: 09/12/15 Sex Patient Care team information Care Team Personnel Name: Desmond Anton RN Position: [facility] RN Member Role: Primary Care Nurse Name: Eliza Ch RN Position: [facility] RN Member Role: Primary Care Nurse Name: Izzy Cooper Position: [facility] RN Member Role: Primary Care Nurse Name: Elie Alex MD Position: [facility] Renal MD Member Role: Lifetime Consulting Physician Address: Address: [address] [place] [address], [address] [facility] [address] Name: Rayray Brand Position: [facility] Physician (General Medicine) Member Role: Primary Care Nurse Name: Guzman Liudmila Position: [facility] RN Member Role: Primary Care Nurse Name: Kannan Gibbs RN Position: [facility] RN Member Role: Primary Care Nurse Name: Chase Brumfield RN Position: [facility] ED RN W/OE and Tasks Member Role: Primary Care Nurse Name: Link Stein RN Position: [facility] RN Supv Member Role: Primary Care Nurse Name: Isai Weaver DO Position: [facility] Renal MD Member Role: Lifetime Consulting Physician Address: Address: [address] [place], [place] [address] [place] [address]- Name: Lor Abdullahi RN Position: [facility] RN Member Role: Primary Care Nurse Name: Charity Billings RN Position: [facility] RN Member Role: Primary Care Nurse Name: Trae Hawkins III, RN Position: [facility] RN Member Role: Primary Care Nurse Name: Yamini Soares Position: [facility] RN Member Role: Primary Care Nurse Name: Marcus Ardon RN Position: [facility] RN Member Role: Primary Care Nurse Name: Jaison Sherwood MD Position: [facility] Renal MD Member Role: Lifetime Consulting Physician Address: Address: [address] [place] [address] [address] [facility] [place] [address]- Name: Anna White RN Position: [facility] AMB Nurse Member Role: Primary Care Nurse Name: Marleny Sanchez RN Position: [facility] RN Member Role: Primary Care Nurse Name: Gabriel Chappell MD Position: [facility] Renal MD Member Role: Lifetime Consulting Physician Address: Address: [address] [place] [address] [facility] [place] [address]- Name: Muriel Page RN Position: [facility] SN RN Member Role: Primary Care Nurse Name: Marielena Sheehan RN Position: [facility] RN Member Role: Primary Care Nurse Name: Nadia Hernandez RN Position: [facility] RN Member Role: Primary Care Nurse Name: Alyssa Nguyen RN Position: [facility] RN Member Role: Primary Care Nurse Name: Елена Jules RN Position: [facility] RN Member Role: Primary Care Nurse Name: Arleen Cooper MD Position: [facility] Primary Care Physician Member Role: PCP Address: Address: [address] [place] [address]- Care Team Related Persons Name: CAMI ELIAS Address: home [address] [place] [address] Name: HERMILO PANDA Address: home [address] [address] Name: JACK PANDA Address: home [address] [place] [address]
--- OUTSIDE RECORDS SUMMARY | 2023-06-19 12:39 | XMS_ITS | Continuity of Care Document ---
Author Name Unknown Organization [facility] Address [address] [place] [address]- Care Team Providers Care Assistant Account Manager Name Role Phone Arleen Cooper MD Primary Care Physician Encounter [facility] Date(s): 04/17/20 - 05/17/[address] [address]- [facility] Allergies, Adverse Reactions, Alerts Substance Reaction Severity [...] 09/30/20 9:23:00 EST, 04/30/20 9:21:00 EDT, Tablet, [facility], 1 tablet By Mouth [...] 04/30/20 9:22:00 EDT, Route to Pharmacy Electronically, [facility], 167.64, cm, 04/30/20 8:23:00 EDT, Height, 70, kg, ... Start Date: 04/30/20 Stop Date: 06/30/20 Status: Ordered docusate sodium 100 mg oral capsule 100 mg, 1, capsule, By Mouth, 3 times a day, PRN, # 90 capsule, Refills 0, Tot. Refills 0, Maintenance, for constipation, 04/12/20 12:34:00 EDT, Route to Pharmacy Electronically, [facility], 167.64, cm, 04/12/20 4:21:00 EDT, Height, 7... Start Date: 04/12/20 Status: Ordered Envarsus XR 1 mg oral tablet, extended release 8 tablet = 8 mg, By Mouth, Daily in AM, # 240 tablet, 11 Refills, Maintenance, 04/30/20 9:22:00 EDT, [facility], 167.64, cm, 04/30/20 8:23:00 EDT, Height, 70, kg, 04/11/20 15:19:00 EDT, Dry Weight Start Date: 04/30/20 Status: Ordered Envarsus XR 1 mg oral tablet, extended release 8 tablet = 8 mg, By Mouth, Daily in AM, # 240 tablet, 0 Refills, Maintenance, 04/12/20 12:33:00 EDT, [facility], 167.64, cm, 04/12/20 4:21:00 [...] tomorrow, 04/19/20 15:08:00 EDT, 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 Start Date: 04/19/20 Stop Date: 06/18/20 Status: Ordered Lantus Solostar Pen 100 units/mL subcutaneous solution = 30 units, Subcutaneous Injection, Daily at bedtime, # 10 mL, 11 Refills, Maintenance, 04/17/20 16:49:00 EDT, [facility] #[id number], 167.64, cm, 04/16/20 8:56:00 EDT, Height, 70, kg, 04/11/20 15:19:00 EDT, Dry Weight Start Date: 04/17/20 Status: Ordered levothyroxine 0.025 mg oral tablet 1.5 tablet = 37.5 mcg, By Mouth, Daily, # 45 tablet, 11 Refills, Maintenance, 04/18/20 17:51:00 EDT, [facility]t, [id number], 167.64, cm, 04/16/20 8:56:00 EDT, Height, 70, kg, 04/11/20 15:19:00 EDT, Dry Weight Start Date: 04/18/20 Status: Ordered NIFEdipine 60 mg oral tablet, extended release 60 mg, 1, tablet, By Mouth, Daily, # 30 tablet, Refills 0, Tot. Refills 0, Maintenance, 04/14/20 16:03:00 EDT, Route to Pharmacy Electronically, [place] [address], 167.64, cm, 04/14/20 15:37:00 EDT, Height, 70, kg, 04/11/20 15:19:00 EDT, Dry We... Start Date: 04/14/20 Status: Ordered Pen [place], 31 G x 5 mm BD Ultra [...] 04/30/20 9:22:00 EDT, Route to Pharmacy Electronically, [facility], 167.64, cm, 04/30/20 8:23:00 EDT, Height, 70, kg, 04/11/20 15:... Start Date: 04/30/20 Stop Date: 09/30/20 Status: Ordered Problem List Condition Effective Dates Status Health Status Inform ant ESRD on hemodialysis(Confirmed) Active Diabetes mellitus(Confirmed) Active Hearing loss(Confirmed) 1 Active HTN (hypertension)(Confirmed) Active ADAM (obstructive sleep apnea)(Confirmed) Active Care Management [facility] , Sarah Gabriel (Confirmed) Active Subclinical hypothyroidism(Confirmed) Active 1Weighed 1.5 pounds at . 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
--- OUTSIDE RECORDS SUMMARY | 2023-06-19 12:39 | XMS_ITS | Continuity of Care Document ---
Author Name Unknown Organization [facility] Address [address] [place] [address]- Care Team Providers Care Emt I/85 Name Role Phone Kenneth CLARKE, Arleen Primary Care Physician [phone] Encounter [facility] Date(s): 01/28/23 - 02/27/23 [facility] [address], [place] [address] Attending Physician: Enid Maharaj Admitting Physician: Enid Maharaj Referring Physician: Enid Mhaaraj Allergies, Adverse Reactions, Alerts Substance Reaction Severity Status ibuprofen decreased kidney function Ac tive aspirin decresed kidney function Act nina Toradol 1 decreased kidney function Ac tive Robaxin itching Active Valium difficulty breathing Active Vicodin itching Active 1Pt states he is not allergic to this medication Immunizations Given and Recorded Vaccine Date Status Refusal Reason [id number] 12y+ bivalent booster vax 1 07/17/22 Given [...] 11/25/22 Status: Ordered B-D PEN NDL MINI [id number](12/11)PRPL USE DIRECTED FOR TYPE 1 DIABETES Start Date: 11/25/22 Status: Ordered Baqsimi One Pack 3 mg nasal powder See Instructions, 3 mg Once In one nostril; dose does not need to be inhaled may repeat in 15 minutes alternate nostrils, # 1 each, 5 Refills, Soft Stop, 09/19/22 22:47:00 EST, [facility] #[id number], Partial fill upon patient request if the [...] Maintenance, 09/30/22 13:35:00 EST, Route toPharmacy Electronically, [facility] #[id number], 168, cm, 09/19/22 14:56:00 EST, Height, 60.2,kg, [...] Refills, Soft Stop,09/19/22 22:51:00 EST, Chew Tablet, [facility] #[id number], Partial fill upon patient request if the prescription is for a schedule II opioid drug... Start Date: 09/19/22 Status: Ordered Lantus Solostar Pen 100 units/mL subcutaneous solution See Instructions, Please take 20 units at bedtime E11.8, # 45 mL, 3 Refills, Maintenance, 12/29/22 8:07:00 EDT, Injection, [facility] #[id number], Partial fill upon patient request if the prescription is for a schedule II opioid drug., 168, cm,... Start Date: 12/29/22 Status: Ordered levothyroxine 0.025 mg oral tablet 1.5 tablet, By Mouth, Daily, # 45 tablet, 10 Refills, Maintenance, 01/12/23 16:11:00 EDT, [facility] #[id number], 168, cm, 12/26/22 16:32:00 EDT, Height, 72.7, [...] BG... Start Date: 12/27/22 Status: Ordered Pen [place], 31 G x 5 mm BD Ultra [...] 0 Refills, Maintenance, 06/28/22 11:25:00 EDT, Tablet, [facility] #[id number], Partial fill upon patient request if the [...] Refills, Maintenance, 07/10/22 12:57:00 EDT, XR Tablet, [facility] #[id number], Partial... Start Date: 07/10/22 Stop Date: 08/09/22 Status: Ordered tamsulosin 0.4 mg oral capsule 0.4 mg, 1, capsule, By Mouth, Daily, # 30 capsule, Refills 0, Tot. Refills 0, Maintenance, :30:00 EDT, Route to Pharmacy Electronically, [facility] #[id number], Partial fill upon patient request if the prescription is for a schedule II... Start Date: 07/21/22 Status: Ordered Trulicity Pen 0.75 mg/0.5 mL subcutaneous solution 0.5 mL = 0.75 mg, Subcutaneous Injection, Every week, rotate injection sites, # 2 mL, 5 Refills, Maintenance, 12/26/22 17:06:00 EDT, Solution, [facility] #[id number], Partial fill upon patient request if the prescription is for a schedule II opio... Start Date: 12/26/22 Status: Ordered valganciclovir 450 mg oral tablet 450 mg, 1, tablet, By Mouth, Every Thursday, Thursday and Thursday, # 26 tablet, Refills 1, Tot. Refills 1, Maintenance, 06/28/22 11:26:00 EDT, Route to Pharmacy Electronically, [facility] #[id number], Partial fill upon patient request if the [...] Active ADAM (obstructive sleep apnea) Confirmed Active [facility] Care Management [facility] Care, Vernell Fabian [phone] Confirmed Active Subclinical hypothyroidism Confirmed Active 1Weighed 1.5 pounds at . 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 Social History Social History Type Response Smoking Status Never smoker; Tobacc o user in household: No entered on: 09/12/15 Sex Patient Care team information Care Team Personnel Name: Desmond Anton RN Position: [facility] RN Member Role: Primary Care Nurse Name: Eliza Ch RN Position: S RN Member Role: Primary Care Nurse Name: Izzy Cooper Position: [facility] RN Member Role: Primary Care Nurse Name: Elie Alex MD Position: [facility] Renal MD Member Role: Lifetime Consulting Physician Address: Address: [address] [place] [address], [address] [facility] [place] [address]- Name: Rayray Brand Position: [facility] Physician (General Medicine) Member Role: Primary Care Nurse Name: Liudmila Hinds Position: [facility] RN Member Role: Primary Care Nurse Name: Kannan Gibbs RN Position: [facility] RN Member Role: Primary Care Nurse Name: Chase Brumfield RN Position: [facility] ED RN W/OE and Tasks Member Role: Primary Care Nurse Name: Link Stein RN Position: [facility] RN Supv Member Role: Primary Care Nurse Name: Isai Weaver DO Position: [facility] Renal MD Member Role: Lifetime Consulting Physician Address: Address: [address] [place], [place] [address] [place] [address]- Name: Lor Abdullahi RN Position: [facility] RN Member Role: Primary Care Nurse Name: Charity Billings RN Position: [facility] RN Member Role: Primary Care Nurse Name: Trae Hawkins III, RN Position: [facility] RN Member Role: Primary Care Nurse Name: Yamini Soares Position: [facility] RN Member Role: Primary Care Nurse Name: Marcus Ardon RN Position: [facility] RN Member Role: Primary Care Nurse Name: Jaison Sherwood MD Position: [facility] Renal MD Member Role: Lifetime Consulting Physician Address: Address: [address] [place] [address] [address] [facility] [place] [address]- [place] Name: Anna White RN Position: [facility] AMB Nurse Member Role: Primary Care Nurse Name: Marleny Sanchez RN Position: [facility] RN Member Role: Primary Care Nurse Name: Gabriel Chappell MD Position: [facility] Renal MD Member Role: Lifetime Consulting Physician Address: Address: [address] [place] [address] [facility] [place] [address]- [place] Name: Muriel Page RN Position: [facility] SN RN Member Role: Primary Care Nurse Name: Marielena Sheehan RN Position: [facility] RN Member Role: Primary Care Nurse Name: Nadia Hernandez RN Position: [facility] RN Member Role: Primary Care Nurse Name: Елена Jules RN Position: [facility] RN Member Role: Primary Care Nurse Name: Arleen Cooper MD Position: [facility] Physician - Primary Care Member Role: PCP Address: Address: [address] [place] [id number]- [place] Care Team Related Persons Name: CAMI ELIAS Address: [address] [place] [address] Name: HERMILO PANDA Address: [address] [address] Name: JACK PANDA Address: home [address] [place] [address]
--- OUTSIDE RECORDS SUMMARY | 2023-06-19 12:39 | XMS_ITS | Continuity of Care Document ---
Author Name Unknown Organization [facility] Address [address] [place] [address]- Care Team Providers Care Orthopaedic Technologist Name Role Phone Arleen Cooper MD Primary Care Physician [phone] Encounter [facility] Date(s): 06/12/22 - 07/12/[address] [address] Attending Physician: Admjessie, Enid Admitting Physician: [...] Note: vis Medications B-D PEN NDL SHRT [id number](02/10) COOPER B-D PEN NDL SHRT [id number](02/10) COOPER, See Instructions, # 100 each, 0 [...] 01/23/22 16:09:00 EDT, Route to Pharmacy Electronically, [facility] #[id number], Partial fill upon patient request if the prescription is for a jana... Start Date: 01/23/22 Status: Ordered insulin glargine (concentrated) 300 units/mL subcutaneous solution See Instructions, 18 units s/c at bedtime, # 12 mL, 2 Refills, Maintenance, 06/29/22 11:32:00 EDT, Solution, [facility] #[id number], Partial fill upon patient request if the prescription is for a schedule II opioid drug., 167, cm, 06/29/22 8:48:0... Start Date: 06/29/22 Status: Ordered insulin lispro (concentrated) 200 units/mL subcutaneous solution See Instructions, 3 units Subcutaneous Infusion for FSBS of every 100 and 1 unit additional for every 40 above 100, # 12 mL, 3 Refills, Maintenance, 06/29/22 14:22:00 EDT, [facility] #[id number], Partial fill upon patient request if the prescript... Start Date: 06/29/22 Status: Ordered levothyroxine 0.025 mg oral tablet 1.5 tablet, By Mouth, Daily, # 135 tablet, 0 Refills, [facility] #[id number], 167.64, cm, 01/23/22 11:51:00 EDT, Height, 63.7, kg, 01/30/21 22:32:00 EDT, Dry Weight Start Date: 03/27/22 Status: Ordered multivitamin Multiple Vitamins oral capsule 1 capsule, By Mouth, Daily, # 30 capsule, 0 Refills, Maintenance, 06/28/22 11:24:00 EDT, Capsule, [facility] #[id number], Partial fill upon patient request if the prescription is for a schedule II opioid drug., 1 capsule By Mouth Daily,x30 days,... Start Date: 06/28/22 Stop Date: 07/28/22 Status: Ordered mycophenolate mofetil 500 mg oral tablet = 1,500 mg, By Mouth, 2 times a day, # 180 tablet, 1 Refills, Maintenance, 06/28/22 11:24:00 EDT, Tablet, [facility] #[id number], Partial fill upon patient request if the [...] 06/28/22 Stop Date: 07/28/22 Status: Ordered Pen [place], 31 G x 5 mm BD Ultra [...] 0 Refills, Maintenance, 06/28/22 11:25:00 EDT, Tablet, [facility] #[id number], Partial fill upon patient request if the prescription is for a schedule II opioid drug., 167, cm, 06/28/22 8:15:00 EDT,... Start Date: 06/28/22 Status: Ordered PROzac 20 mg oral capsule 20 mg, 1, capsule, By Mouth, Daily, # 30 capsule, Refills 0, Tot. Refills 0, Maintenance, 07/10/22 11:33:00 EDT, Route to Pharmacy Electronically, [facility] #[id number], Partial fill upon patient request if the prescription is for a schedule II... Start Date: 07/10/22 Stop Date: 08/09/22 Status: Ordered Renvela 800 mg oral tablet 1 tablet = 800 mg, By Mouth, 3 times a day with meals, # 90 tablet, 0 Refills, Maintenance, 06/28/22 11:25:00 EDT, Tablet, [facility] #[id number], Partial fill upon patient request if the [...] 09/08/22 11:34:00 EST, 07/10/22 11:34:00 EDT, Tablet, [facility] #[id number]... Start Date: 07/10/22 Stop Date: 09/08/22 Status: Ordered tacrolimus 1 mg oral tablet, extended release = 7 mg, By Mouth, Daily in AM, Please take tacrolimus 7 mg PO daily in AM and f/u with nephrologistfor level monitoring and dose adjustment., # 210 tablet, 0 Refills, Maintenance, 07/10/22 12:57:00 EDT, XR Tablet, [facility] #[id number], Partial... Start Date: 07/10/22 Stop Date: 08/09/22 Status: Ordered valganciclovir 450 mg oral tablet 450 mg, 1, tablet, By Mouth, Every Thursday, Thursday and Thursday, # 12 tablet, Refills 1, Tot. Refills 1, Maintenance, 06/28/22 11:26:00 EDT, Route to Pharmacy Electronically, [facility] #[id number], Partial fill upon patient request if the prescr... 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
--- OUTSIDE RECORDS SUMMARY | 2023-06-19 12:39 | XMS_ITS | Continuity of Care Document ---
Author Name Unknown Organization [facility] Address [address] [place] [address]- Care Team Providers Care Heel Builder Name Role Phone Arleen Cooper MD Primary Care Physician Encounter [facility] Date(s): 07/01/21 - 07/31/[address] [address]- Allergies, Adverse Reactions, Alerts Substance Reaction Severity [...] 02/18/21 16:31:00 EDT, Route to Pharmacy Electronically, [facility] #[id number], Partial fill upon patientrequest if the prescription is for a schedule II op... Start Date: 02/18/21 Stop Date: 08/17/21 Status: Ordered B-D PEN NDL SHRT [id number](02/10) COOPER B-D PEN NDL SHRT [id number](02/10) COOPER, See Instructions, # 100 each, 0 [...] 07/18/20 11:05:00 EDT, Route to Pharmacy Electronically, [facility], 167.64, cm, 07/12/20 8:38:00 EDT, Height, 70, kg, 04/11/20 15:19:00... 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 Start Date: 04/19/20 Stop Date: 06/18/20 Status: Ordered Lantus Solostar Pen 100 units/mL subcutaneous solution = 35 units, Subcutaneous Injection, Daily at bedtime, # 12 mL, 11 Refills, Maintenance, 03/12/21 16:28:00 EDT, [facility] #[id number], 167.64, cm, 02/28/21 10:34:00 EDT, Height, 63.7, kg, 01/30/21 22:32:00 EDT, Dry Weight Start Date: 03/12/21 Status: Ordered levothyroxine 0.025 mg oral tablet 1.5 tablet = 37.5 mcg, By Mouth, Daily, You are due for thyroid lab work. Go to the lab, # 135 tablet, 0 Refills, Maintenance, 06/17/21 5:30:00 EDT, Tablet, [facility], 167.64, cm, 04/04/21 10:55:00 EDT, Height, 63.7, kg, 01/30/21 22:... Start Date: 06/17/21 Status: Ordered Pen [place], 31 G x [...] pack/packet, 1 Refills, Maintenance, 06/21/20 16:51:00 EDT, [facility], Deliver to pt in [...] (obstructive sleep apnea)(Confirmed) Active Care Management [facility] Sarah (Confirmed) Active Subclinical hypothyroidism(Confirmed) Active 1Weighed 1.5 pounds at . 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
--- OUTSIDE RECORDS SUMMARY | 2023-06-19 12:39 | XMS_ITS | Continuity of Care Document ---
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 Phone Kenneth CLARKE, Arleen Primary Care Physician Encounter [facility] Date(s): 10/01/22 - 10/31/[address] [address]- Allergies, Adverse Reactions, Alerts Substance Reaction Severity Status ibuprofen decreased kidney function Ac tive aspirin decresed kidney function Act nina Toradol 1 decreased kidney function Ac tive Robaxin itching Active Valium difficulty breathing Active Vicodin itching Active 1Pt states he is not allergic to this medication Immunizations Given and Recorded Vaccine Date Status Refusal Reason [id number] 12y+ bivalent booster vax 1 07/17/22 Given [...] Note: vis Medications B-D PEN NDL SHRT [id number](02/10) COOPER B-D PEN NDL SHRT [id number](02/10) COOPER, See Instructions, # 100 each, 0 [...] each, 5 Refills, Soft Stop, 09/19/22 22:47:00 [facility] [employer] #[id number], Partial fill upon patient request if the [...] tablet, 11 Refills, Maintenance, 10/17/22 12:12:00 EST, [facility] #[id number], 30, TAKE 1 TABLET BY MOUTH EVERY DAY, 168, cm, 09/19/22 14:56:00 EST, Height, 60.2, kg, 07/24/22 0:30:00 EDT, Dry Weight Start Date: 10/17/22 Status: Ordered FLUoxetine 20 mg oral capsule 1, capsule, By Mouth, Daily, # 30 capsule, Refills 11, Maintenance, 09/30/22 13:35:00 EST, Route toPharmacy Electronically, [facility] #[id number], 168, cm, 09/19/22 14:56:00 EST, Height, 60.2,kg, [...] 09/02/22 15:33:00 EST, Route to Pharmacy Electronically, [facility] #[id number], 168, cm, 07/30/22 15:53:00 EDT, Height, 60.2, kg, 07/24/22 0:30:00 EDT, Dry Weight Start Date: 09/02/22 Status: Ordered glucose 4 gm oral tablet, chewable 4 tablet = 16 Gm, Chew, Once, PRN as needed for low blood sugar, # 50 tablet, 0 Refills, Soft Stop,09/19/22 22:51:00 EST, Chew Tablet, [facility] #[id number], Partial fill upon patient request if the prescription is for a schedule II opioid drug... Start Date: 09/19/22 Status: Ordered insulin glargine (concentrated) 300 units/mL subcutaneous solution See Instructions, 25 units s/c in the AM at the same time every day rotate injection sites, # 12 mL, 2 Refills, Maintenance, 06/29/22 11:32:00 EDT, Solution, [facility] #[id number], Partial fillupon patient request if the prescription is... Start Date: 06/29/22 Status: Ordered insulin lispro (concentrated) 200 units/mL subcutaneous solution See Instructions, 3 units Subcutaneous Infusion for FSBS of every 100 and 1 unit additional for every 40 above 100, # 12 mL, 3 Refills, Maintenance, 06/29/22 14:22:00 EDT, [facility] #[id number], Partial fill upon patient request if the prescript... Start Date: 06/29/22 Status: Ordered levothyroxine 0.025 mg oral tablet 1.5 tablet, By Mouth, Daily, # 135 tablet, 0 Refills, [facility] #[id number], 167.64, cm, 01/23/22 11:51:00 EDT, Height, 63.7, kg, 01/30/21 22:32:00 EDT, Dry Weight Start Date: 03/27/22 Status: Ordered Pen [place], 31 G x 5 mm BD Ultra [...] 0 Refills, Maintenance, 06/28/22 11:25:00 EDT, Tablet, [facility] #[id number], Partial fill upon patient request if the [...] Refills, Maintenance, 07/10/22 12:57:00 EDT, XR Tablet, [facility] #[id number], Partial... Start Date: 07/10/22 Stop Date: 08/09/22 Status: Ordered tamsulosin 0.4 mg oral capsule 0.4 mg, 1, capsule, By Mouth, Daily, # 30 capsule, Refills 0, Tot. Refills 0, Maintenance, :30:00 EDT, Route to Pharmacy Electronically, [facility] #[id number], Partial fill upon patient request if the prescription is for a schedule II... Start Date: 07/21/22 Status: Ordered valganciclovir 450 mg oral tablet 450 mg, 1, tablet, By Mouth, Every Thursday, Thursday and Thursday, # 26 tablet, Refills 1, Tot. Refills 1, Maintenance, 06/28/22 11:26:00 EDT, Route to Pharmacy Electronically, [facility] #[id number], Partial fill upon patient request if the [...] ADAM (obstructive sleep apnea) Confirmed Active [facility] Care Management Addy Liriano, Vernell Fabian [phone] Confirmed Active Subclinical hypothyroidism Confirmed Active 1Weighed 1.5 pounds at . 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 Social History Social History Type Response Smoking Status Never smoker; Tobacc o user in household: No entered on: 09/12/15 Sex Patient Care team information Care Team Personnel Name: Desmond Anton RN Position: [facility] RN Member Role: Primary Care Nurse Name: Eliza Ch RN Position: [facility] RN Member Role: Primary Care Nurse Name: Izzy Cooper Position: [facility] RN Member Role: Primary Care Nurse Name: Elie Alex MD Position: [facility] Renal MD Member Role: Lifetime Consulting Physician Address: Address: [address] [place] [address], [address] [facility] [place] [address]- Name: Rayray Brand Position: [facility] Physician (General Medicine) Member Role: Primary Care Nurse Name: Liudmila Hinds Position: [facility] RN Member Role: Primary Care Nurse Name: Kannan Gibbs RN Position: [facility] RN Member Role: Primary Care Nurse Name: Chase Brumfield RN Position: [facility] ED RN W/OE and Tasks Member Role: Primary Care Nurse Name: Sissy Powers RN Position: [facility] RN Member Role: Primary Care Nurse Name: Link Stein RN Position: [facility] RN Supv Member Role: Primary Care Nurse Name: Isai Weaver DO Position: [facility] Renal MD Member Role: Lifetime Consulting Physician Address: Address: [address] [place] [address] [address] [facility] [place] [address]- Name: Lor Abdullahi RN Position: [facility] RN Member Role: Primary Care Nurse Name: Charity Billings RN Position: [facility] RN Member Role: Primary Care Nurse Name: Trae Hawkisn III, RN Position: [facility] RN Member Role: Primary Care Nurse Name: Geoffrey aDvis RN Position: [facility] RN Member Role: Primary Care Nurse Name: Yamini Soares Position: S RN Member Role: Primary Care Nurse Name: Marcus Ardon RN Position: [facility] RN Member Role: Primary Care Nurse Name: Jaison Sherwood MD Position: [facility] Renal MD Member Role: Lifetime Consulting Physician Address: Address: [address] [place] [address] [address] [facility] [place] [address]- Name: Anna White RN Position: [facility] AMB Nurse Member Role: Primary Care Nurse Name: Marleny Sanchez RN Position: [facility] RN Member Role: Primary Care Nurse Name: Gabriel Chappell MD Position: [facility] Renal MD Member Role: Lifetime Consulting Physician Address: Address: [address] [place] [address] [facility] [place] [address]- Name: Muriel Page RN Position: [facility] SN RN Member Role: Primary Care Nurse Name: Marielena Sheehan RN Position: [facility] RN Member Role: Primary Care Nurse Name: Nadia Hernandez RN Position: [facility] RN Member Role: Primary Care Nurse Name: Alyssa Nguyen RN Position: [facility] RN Member Role: Primary Care Nurse Name: Елена Jules RN Position: [facility] RN Member Role: Primary Care Nurse Name: Arleen Cooper MD Position: [facility] Primary Care Physician Member Role: PCP Address: Address: [address] [place] [address]- Care Team Related Persons Name: CAMI ELIAS Address: [address] [place] [address] Name: HERMILO PANDA Address: [address] [address] Name: JACK PANDA Address: home [address] [place] [address]
--- OUTSIDE RECORDS SUMMARY | 2023-06-19 12:39 | XMS_ITS | Continuity of Care Document ---
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 Phone Kenneth CLARKE, Arleen Primary Care Physician [phone] Encounter [facility] Date(s): 08/14/22 - 09/13/[address] [address]- Allergies, Adverse Reactions, Alerts Substance Reaction Severity Status ibuprofen decreased kidney function Ac tive aspirin decresed kidney function Act nina Toradol 1 decreased kidney function Ac tive Robaxin itching Active Valium difficulty breathing Active Vicodin itching Active 1Pt states he is not allergic to this medication Immunizations Given and Recorded Vaccine Date Status Refusal Reason [id number] 12y+ bivalent booster vax 1 07/17/22 Given [...] Note: vis Medications B-D PEN NDL SHRT [id number](02/10) COOPER B-D PEN NDL SHRT [id number](02/10) COOPER, See Instructions, # 100 each, 0 [...] 09/02/22 15:33:00 EST, Route to Pharmacy Electronically, [facility] #[id number], 168, cm, 07/30/22 15:53:00 EDT, Height, 60.2, kg, 07/24/22 0:30:00 EDT, Dry Weight Start Date: 09/02/22 Status: Ordered insulin glargine (concentrated) 300 units/mL subcutaneous solution See Instructions, 25 units s/c in the AM at the same time every day rotate injection sites, # 12 mL, 2 Refills, Maintenance, 06/29/22 11:32:00 EDT, Solution, [facility] #[id number], Partial fillupon patient request if the prescription is... Start Date: 06/29/22 Status: Ordered insulin lispro (concentrated) 200 units/mL subcutaneous solution See Instructions, 3 units Subcutaneous Infusion for FSBS of every 100 and 1 unit additional for every 40 above 100, # 12 mL, 3 Refills, Maintenance, 06/29/22 14:22:00 EDT, [facility] #[id number], Partial fill upon patient request if the prescript... Start Date: 06/29/22 Status: Ordered levothyroxine 0.025 mg oral tablet 1.5 tablet, By Mouth, Daily, # 135 tablet, 0 Refills, [facility] #[id number], 167.64, cm, 01/23/22 11:51:00 EDT, Height, 63.7, kg, 01/30/21 22:32:00 EDT, Dry Weight Start Date: 03/27/22 Status: Ordered multivitamin Multiple Vitamins oral capsule 1 capsule, By Mouth, Daily, # 30 capsule, 0 Refills, Maintenance, 09/04/22 11:03:00 EST, Capsule, [facility] #[id number], Partial fill upon patient request if the prescription is for a schedule II opioid drug., 1 capsule By Mouth Daily,x30 days,... Start Date: 09/04/22 Stop Date: 10/04/22 Status: Ordered Pen Collins, 31 G x 5 mm BD Ultra [...] 0 Refills, Maintenance, 06/28/22 11:25:00 EDT, Tablet, [facility] #[id number], Partial fill upon patient request if the prescription is for a schedule II opioid drug., 167, cm, 06/28/22 8:15:00 EDT,... Start Date: 06/28/22 Status: Ordered PROzac 20 mg oral capsule 20 mg, 1, capsule, By Mouth, Daily, # 30 capsule, Refills 0, Tot. Refills 0, Maintenance, 09/04/22 11:03:00 EST, Route to Pharmacy Electronically, [email or web address] #[id number], Partial fill upon patient request if the [...] Refills, Maintenance, 07/10/22 12:57:00 EDT, XR Tablet, [facility] #[id number], Partial... Start Date: 07/10/22 Stop Date: 08/09/22 Status: Ordered tamsulosin 0.4 mg oral capsule 0.4 mg, 1, capsule, By Mouth, Daily, # 30 capsule, Refills 0, Tot. Refills 0, Maintenance, :30:00 EDT, Route to Pharmacy Electronically, [facility] #[id number], Partial fill upon patient request if the prescription is for a schedule II... Start Date: 07/21/22 Status: Ordered valganciclovir 450 mg oral tablet 450 mg, 1, tablet, By Mouth, Every Thursday, Thursday and Thursday, # 26 tablet, Refills 1, Tot. Refills 1, Maintenance, 06/28/22 11:26:00 EDT, Route to Pharmacy Electronically, [facility] #[id number], Partial fill upon patient request if the [...] Active ADAM (obstructive sleep apnea) Confirmed Active [facility] Care Management [facility], Vernell Rui [phone] Confirmed Active Subclinical hypothyroidism Confirmed Active 1Weighed 1.5 pounds at . 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 Social History Social History Type Response Smoking Status Never smoker; Tobacc o user in household: No entered on: 09/12/15 Sex Patient Care team information Care Team Personnel Name: Desmond Anton RN Position: [facility] RN Member Role: Primary Care Nurse Name: Eliza Ch RN Position: [facility] RN Member Role: Primary Care Nurse Name: Izzy Cooper Position: [facility] RN Member Role: Primary Care Nurse Name: Elie Alex MD Position: [facility] Renal MD Member Role: Lifetime Consulting Physician Address: Address: [address] [place] [address], [address] [facility] [address] Name: Rayray Brand Position: [facility] [...] Care Nurse Name: Sissy Powers RN Position: [facility] RN Member Role: Primary Care Nurse Name: Link Stein RN Position: [facility] RN Supv Member Role: Primary Care Nurse Name: Isai Weaver DO Position: [facility] Renal MD Member Role: Lifetime Consulting Physician Address: Address: [address] [place], [place] [address] [place] [address]- Name: Lor Abdullahi RN Position: [facility] RN Member Role: Primary Care Nurse Name: Charity Billings RN Position: [facility] RN Member Role: Primary Care Nurse Name: Trae Hawkins III, RN Position: [facility] RN Member Role: Primary Care Nurse Name: Geoffrey Davis RN Position: [facility] RN Member Role: Primary Care Nurse Name: Yamini Soares Position: [facility] RN Member Role: Primary Care Nurse Name: Marcus Ardon RN Position: [facility] RN Member Role: Primary Care Nurse Name: Jaison Sherwood MD Position: [facility] Renal MD Member Role: Lifetime Consulting Physician Address: Address: [address] [place] [address] [address] [facility] [place] [address]- Name: Anna White RN Position: [facility] AMB Nurse Member Role: Primary Care Nurse Name: Marleny Sanchez RN Position: [facility] RN Member Role: Primary Care Nurse Name: Gabriel Chappell MD Position: [facility] Renal MD Member Role: Lifetime Consulting Physician Address: Address: [address] [place] [address] [facility] [place] [address]- Name: Muriel Page RN Position: [facility] SN RN Member Role: Primary Care Nurse Name: Marielena Sheehan RN Position: [facility] RN Member Role: Primary Care Nurse Name: Nadia Hernandez RN Position: [facility] RN Member Role: Primary Care Nurse Name: Alyssa Nguyen RN Position: [facility] RN Member Role: Primary Care Nurse Name: Елена Jules RN Position: [facility] RN Member Role: Primary Care Nurse Name: Arleen Cooper MD Position: [facility] Primary Care Physician Member Role: PCP Address: Address: [address] [place] [address]- [place] Care Team Related Persons Name: CAMI ELIAS Address: home [address] [place] [address] Name: HERMILO PANDA Address: [address] [address] Name: JACK PANDA Address: home [address] [place] [address]
--- OUTSIDE RECORDS SUMMARY | 2023-06-19 12:39 | XMS_ITS | Continuity of Care Document ---
Author Name Unknown Organization [facility] Address [address] [place] [address]- Care Team Providers Care E Learning Developer Name Role Phone Matteo Beltran DO Primary Care Physician Encounter [facility] Date(s): 05/29/23 - 06/05/23 [facility] [address] [place] [address]- Encounter Diagnosis Foot laceration(Discharge Diagnosis) - 05/29/23 Diabetes mellitus(Discharge Diagnosis) - 05/29/23 Attending Physician: Dwayne CLARKE, Angie Nevarez Referring Physician: Matteo Beltran DO Allergies, Adverse Reactions, Alerts Substance Reaction Severity Status ibuprofen decreased kidney function Ac tive aspirin decresed kidney function Act nina Toradol 1 decreased kidney function Ac tive Robaxin itching Active Valium difficulty breathing Active Vicodin itching Active 1Pt states he is not allergic to this medication Immunizations Given and Recorded Vaccine Date Status Refusal Reason [id number] 12y+ bivalent booster vax 1 07/17/22 Given [...] 11/25/22 Status: Ordered B-D PEN NDL MINI [id number](12/11)PRPL USE DIRECTED FOR TYPE 1 DIABETES Start Date: 11/25/22 Status: Ordered Baqsimi One Pack 3 mg nasal powder See Instructions, 3 mg Once In one nostril; dose does not need to be inhaled may repeat in 15 minutes alternate nostrils, # 1 each, 5 Refills, Soft Stop, 09/19/22 22:47:00 EST, [facility] #[id number], Partial fill upon patient request if the [...] Maintenance, 09/30/22 13:35:00 EST, Route toPharmacy Electronically, [facility] #[id number], 168, cm, 09/19/22 14:56:00 EST, Height, 60.2,kg, [...] Refills, Soft Stop,09/19/22 22:51:00 EST, Chew Tablet, [facility] #[id number], Partial fill upon patient request if the prescription is for a schedule II opioid drug... Start Date: 09/19/22 Status: Ordered Lantus Solostar Pen 100 units/mL subcutaneous solution See Instructions, Please take 20 units at bedtime E11.8, # 45 mL, 3 Refills, Maintenance, 12/29/22 8:07:00 EDT, Injection, [facility] #[id number], Partial fill upon patient request if the prescription is for a schedule II opioid drug., 168, cm,... Start Date: 12/29/22 Status: Ordered levothyroxine 0.025 mg oral tablet 1.5 tablet, By Mouth, Daily, # 45 tablet, 10 Refills, Maintenance, 01/12/23 16:11:00 EDT, [facility] #[id number], 168, cm, 12/26/22 16:32:00 EDT, Height, 72.7, kg, 12/20/22 14:52:00 EDT, Dry Weight Start Date: 01/12/23 Status: Ordered multivitamin Vitamin B Complex with C and Folic Acid oral capsule TAKE 1 CAPSULE BY MOUTH ONCE DAILY Start Date: 11/25/22 Status: Ordered Pen [place], 31 G x 5 mm BD Ultra Fine III See Instructions, # 100 each, Refills 3, Tot. Refills 3, Maintenance, use as directed for Diabetes Mellitus E11.8, 12/27/22 11:56:00 EDT, Compound, 168, cm, 12/26/22 16:32:00 EDT, Height, 72.7, kg, 12/20/22 14:52:00 EDT, Dry Weight Start Date: 12/27/22 Stop Date: 12/22/23 Status: Ordered sevelamer carbonate 800 mg oral tablet 2 tablet = 1,600 mg, By Mouth, 3 times a day with meals, 0 Refills, Maintenance, 07/30/22 13:40:00 EDT, Tablet, Partial fill upon patient request if the prescription is for a schedule II opioid drug. Start Date: 07/30/22 Status: Ordered tacrolimus 1 mg oral tablet, extended release = 3 mg, By Mouth, Daily in AM, Please take tacrolimus 8 mg PO daily in AM and f/u with nephrologistfor level monitoring and dose adjustment., # 240 tablet, 0 Refills, Maintenance, 07/10/22 12:57:00 EDT, XR Tablet, [facility] #[id number], Partial... Start Date: 07/10/22 Stop Date: 08/09/22 Status: Ordered Trulicity Pen 1.5 mg/0.5 mL subcutaneous solution 0.5 mL = 1.5 mg, Subcutaneous Injection, Every week, rotate injection sites, # 2.5 mL, 6 Refills, Maintenance, 04/10/23 14:42:00 EDT, Solution, [facility] #[id number], Partial fill upon patient request if the prescription is for a schedule II opi... Start Date: 04/10/23 Status: Ordered Problem List Condition Confirmation Course Effective Dates Status H ealth Status Informant ESRD on hemodialysis Confirmed Active Diabetes mellitus Confirmed Active Hearing loss 1 Confirmed Active -donor kidney transplant recipient 2 Confirmed 04/11/20 Active Hyperkalemia Confirmed Active HTN (hypertension) Confirmed Active Lower back pain Confirmed Active ADAM (obstructive sleep apnea) Confirmed Active [facility] Care Management [facility], Vernell Rui [phone] Confirmed Active Subclinical hypothyroidism Confirmed Active 1Weighed 1.5 pounds at . 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 Diagnosis Diagnosis Type Effective Dates Health Status Clinical Service Informant Foot laceration Discharge Diagnosis 05/29/23 Diabetes mellitus Discharge Diagnosis 05/29/23 Vital Signs Most recent to oldest [Reference Range]: 1 2 Height 170 cm (05/29/23 4:14 PM) 170 cm (05/29/23 3:07 PM) Oxygen Saturation [94-100 %] 97 % (05/29/23 3:07 PM) Pulse Rate [55-90 bpm] 87 bpm (05/29/23 3:07 PM) Blood Pressure [90-138/55-84 mm Hg] 168/ 87mm Hg *H* (05/29/23 4:14 PM) 192/89mm Hg *H* (05/29/23 3:07 PM) Respiratory Rate [16-30 br/min] 16 br/mi n (05/29/23 3:07 PM) Temperature [96.8-100.4 DegF] 97.9 DegF (05/29/23 3:07 PM) Mode of Delivery (Oxygen) Room air (05/29/23 3:07 PM) Blood pressure sites Arm, right (05/29/23 3:07 PM) Temperature Route Oral (05/29/23 3:07 PM) Social History Social History Type Response Smoking Status Never smoker; Tobacc o user in household: No entered on: 09/12/15 Sex Note * Adriana Rubi [place]: PERFORM, SIGN, VERIFY Event Display: Patient Education/Instruction Authored Date: [id number] [facility] *[facility] Clinical Summary Name CHARISMA PANDA Age 47 Years 1975 PCP Matteo Beltran DO PCP Visit Date 05/29/2023 12:47:00 Additional Instructions: Scheduled Appointments?? Future Appointments ?*[facility],??[place],??[address] ?Phone:??--?Fax:??-- ?Appt. Date:??06/23/2023?1:30 PM ?Scheduled Provider:??Bethanie Horton DO Follow-Up Instructions ?? Diagnosis Type 2 diabetes mellitus without complications; Laceration without foreign body, unspecified foot, initial encounter Medications: Please continue your medications until treatment is completed or stopped by your provider. Discuss any questions related to medications with your provider. Medications to Continue with No Changes These medications were not printed or sent to your pharmacy dulaglutide (Trulicity Pen 1.5 mg/0.5 mL subcutaneous solution) 0.5 Milliliter Subcutaneous Injection every week. rotate injection sites. Refills: 6. Next Dose: Durable Medical Equipment (Alcohol Pads) use to clean skin prior to insulin injections and before applying new sagar sensor (max 5 times per day). Refills: 11. Next Dose: Durable Medical Equipment (FreeStyle Sagar 2 Monitor) use to check blood sugar every 8 hours. Refills: 0. Next Dose: Durable Medical Equipment (FreeStyle Sagar 2 Sensors) use to check blood sugar at least every 8 hours, replace sensors every 14 days. Refills: 11. Next Dose: Durable Medical Equipment (Freestyle Lite Lancets) use to check BG BID for dx: Type 2 Diabetes Mellitus. Refills: 3. Next Dose: Durable Medical Equipment (Freestyle Lite Monitor) use to check BG BID for type 2 DM. Refills: 0. Next Dose: Durable Medical Equipment (Freestyle Lite Test Strips) use to check BG BID for dx: E11.65. Refills:11. Next Dose: Durable Medical Equipment (Pen [place], 31 G x 5 mm BD Ultra Fine III) use as directed for DiabetesMellitus E11.8. Refills: 3. Next Dose: Fluoxetine (FLUoxetine 20 mg oral capsule) 1 capsule Oral Daily. Refills: 11. Next Dose: Glucagon (Baqsimi One Pack 3 mg nasal powder) 3 mg Once In one nostril; dose does not need to be inhaled may repeat in 15 minutes alternate nostrils. Refills: 5. Next Dose: Glucose (glucose 4 gm oral tablet, chewable) 4 tab(s) Chew once as needed as needed for low blood sugar. Refills: 0. Next Dose: Insulin Glargine (Lantus Solostar Pen 100 units/mL subcutaneous solution) Please take 20 units at bedtime E11.8. Refills: 3. Next Dose: Levothyroxine (levothyroxine 0.025 mg oral tablet) 1.5 tab(s) Oral Daily. Refills: 10. Next Dose: Miscellaneous Rx (B-D PEN NDL MINI [id number](12/11)PRPL) USE DIRECTED FOR TYPE 1 DIABETES. Next Dose: Miscellaneous Rx (Blood Pressure Monitor) to be used to check BP daily, Dx: HTN, ESRD on HD, new onset hypotenstion with falls; just stopped nifedipine. Refills: 0. Next Dose: Miscellaneous Rx (FREESTYLE SAGAR 2 READER DEVICE) USE TO CHECK BLOOD SUGAR EVERY 8 HOURS. Refills:0. Next Dose: Multivitamin (multivitamin Vitamin B Complex with C and Folic Acid oral capsule) TAKE 1 CAPSULE BY MOUTH ONCE DAILY. Next Dose: Sevelamer (sevelamer carbonate 800 mg oral tablet) 2 tab(s) Oral 3 times a day with meals. Next Dose: Tacrolimus (tacrolimus 1 mg oral tablet, extended release) 3 Milligram Oral Daily in the morning for 30 Days. Please take tacrolimus 8 mg PO daily in AM and f/u with canvas shop laborer for level monitoringand dose adjustment.. Refills: 0. Next Dose: Allergy Info:?? Vicodin; Valium; Robaxin; Toradol; aspirin; ibuprofen Medications Given This Visit Future Orders ?No future orders Vital Signs Height 170 cm Weight BMI Blood Pressure 168 mm Hg/87 mm Hg Temperature 97.9 DegF Pulse Rate 87 bpm Respiratory Rate 16 br/min 02 Sat Mode of Delivery 97 %/Room air You can now view a summary of your hospital visit from the comfort of your home through a free online portal called [employer]. [employer] is a website that allows you to securely view your medical information including discharge summary, medications and follow-up visits. ??You can alsosend a secure electronic message to your doctor???s office to request appointments, renew medications or just ask a question. You can enroll at [email or web address] or register during your next office visit. Disclaimer:?? The information provided is of a general nature and is intended to be used in conjunction with the recommendations and advice of your health care practitioner. ??Every effort has been made to ensure that the information provided is accurate and complete at the time it is provided to you however, as your needs change, or, as new ??information becomes available, different or additional instructions may be required. If you have questions, please consult with your primary care provider or pharmacist, as appropriate. ??This information is not intended to serve as substitution for assessment and evaluation by a qualified health care provider. If you do not have a primary care provider, you may find a [facility] provider by calling [facility] Link at [phone]. [facility], in keeping with [facility] guidance, no longer requires face masks for staff, patientsor visitors in most situations. Similar to time spent indoors at other locations, there is the chance that you were exposed to respiratory viruses during your time with us (such as flu or COVID-19).? If you develop symptoms concerning for a viral respiratory infection, please seek testing (and treatment if indicated) from your medical provider or home test kit. For information about the plan of care including goals and instructions for your diagnosis, please see the patient education orders section of this document. Patient Education Materials?? The content of this educational material or handout may have been modified, supplemented, or adapted from its original content and format to support your individualized medical care. Additional Provider Instructions: Patient Care team information Care Team Personnel Name: Desmond Anton RN Position: [facility] RN Member Role: Primary Care Nurse Name: Eliza Ch RN Position: [facility] RN Member Role: Primary Care Nurse Name: Izzy Cooper Position: [facility] RN Member Role: Primary Care Nurse Name: Elie Alex MD Position: [facility] Renal MD Member Role: Lifetime Consulting Physician Address: Address: [address] [place] [address], [address] [facility] [address] Name: Rayray Brand Position: [facility] Physician (General Medicine) Member Role: Primary Care Nurse Name: Liudmila Hinds Position: S RN Member Role: Primary Care Nurse Name: Kannan Gibbs RN Position: [facility] RN Member Role: Primary Care Nurse Name: Chase Brumfield RN Position: [facility] ED RN W/OE and Tasks Member Role: Primary Care Nurse Name: Sissy Powers RN Position: S RN Member Role: Primary Care Nurse Name: Link Stein RN Position: [facility] RN Supv Member Role: Primary Care Nurse Name: Isai Weaver DO Position: [facility] Renal MD Member Role: Lifetime Consulting Physician Address: Address: [address] [facility] [place] [place] [address]- [place] Name: Lor Abdullahi RN Position: S RN Member Role: Primary Care Nurse Name: Charity Billings RN Position: S RN Member Role: Primary Care Nurse Name: Trae Hawkins III, RN Position: [facility] RN Member Role: Primary Care Nurse Name: Yamini Soares Position: S RN Member Role: Primary Care Nurse Name: Marcus Ardon RN Position: [facility] RN Member Role: Primary Care Nurse Name: Jaison Sherwood MD Position: [facility] Renal MD Member Role: Lifetime Consulting Physician Address: Address: [address] [place] [address] [address] [facility] [place] [address]- [place] Name: Anna White RN Position: [facility] AMB Nurse Member Role: Primary Care Nurse Name: Marleny Sanchez RN Position: [facility] RN Member Role: Primary Care Nurse Name: Matteo Beltran DO Position: [facility] Resident Member Role: PCP Address: Address: [address] [place] [address]- [place] Name: Gabriel Chappell MD Position: [facility] Renal MD Member Role: Lifetime Consulting Physician Address: Address: [address] [place] [address] [facility] [place] [address]- [place] Name: Muriel Page RN Position: [facility] SN RN Member Role: Primary Care Nurse Name: Marielena Sheehan RN Position: S RN Member Role: Primary Care Nurse Name: Nadia Hernandez RN Position: S RN Member Role: Primary Care Nurse Name: Елена Jules RN Position: S RN Member Role: Primary Care Nurse Care Team Related Persons Name: CAMI ELIAS Address: home [address] [place] [address] Name: HERMILO PANDA Address: [address] [address] Name: JACK PANDA Address: home [address] [place] [address]
--- OUTSIDE RECORDS SUMMARY | 2023-06-19 12:39 | XMS_ITS | Continuity of Care Document ---
Author Name Unknown Organization [facility] Address [address] [place] [id number]- Care Team Providers Care Fibreglass Laminator Name Role Phone Arleen Cooper MD Primary Care Physician [place] [facility] [facility] [place] - 05/16/[address] [address] Allergies, Adverse Reactions, Alerts Substance Reaction Severity [...] 09/30/20 9:23:00 EST, 04/30/20 9:21:00 EDT, Tablet, [facility], 1 tablet By Mouth [...] 04/30/20 9:22:00 EDT, Route to Pharmacy Electronically, [facility], 167.64, cm, 04/30/20 8:23:00 EDT, Height, 70, kg, ... Start Date: 04/30/20 Stop Date: 06/30/20 Status: Ordered docusate sodium 100 mg oral capsule 100 mg, 1, capsule, By Mouth, 3 times a day, PRN, # 90 capsule, Refills 0, Tot. Refills 0, Maintenance, for constipation, 04/12/20 12:34:00 EDT, Route to Pharmacy Electronically, [facility], 167.64, cm, 04/12/20 4:21:00 EDT, Height, 7... Start Date: 04/12/20 Status: Ordered Envarsus XR 1 mg oral tablet, extended release 8 tablet = 8 mg, By Mouth, Daily in AM, # 240 tablet, 11 Refills, Maintenance, 04/30/20 9:22:00 EDT, [facility], 167.64, cm, 04/30/20 8:23:00 EDT, Height, 70, kg, 04/11/20 15:19:00 EDT, Dry Weight Start Date: 04/30/20 Status: Ordered Envarsus XR 1 mg oral tablet, extended release 8 tablet = 8 mg, By Mouth, Daily in AM, # 240 tablet, 0 Refills, Maintenance, 04/12/20 12:33:00 EDT, [facility], 167.64, cm, 04/12/20 4:21:00 [...] tomorrow, 04/19/20 15:08:00 EDT, Pt to pickling solution maker 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 Start Date: 04/19/20 Stop Date: 06/18/20 Status: Ordered Lantus Solostar Pen 100 units/mL subcutaneous solution = 30 units, Subcutaneous Injection, Daily at bedtime, # 10 mL, 11 Refills, Maintenance, 04/17/20 16:49:00 EDT, [email or web address] #[id number], 167.64, cm, 04/16/20 8:56:00 EDT, Height, 70, kg, 04/11/20 15:19:00 EDT, Dry Weight Start Date: 04/17/20 Status: Ordered levothyroxine 0.025 mg oral tablet 1.5 tablet = 37.5 mcg, By Mouth, Daily, # 45 tablet, 11 Refills, Maintenance, 04/18/20 17:51:00 EDT, [facility]t, [id number], 167.64, cm, 04/16/20 8:56:00 EDT, Height, 70, kg, 04/11/20 15:19:00 EDT, Dry Weight Start Date: 04/18/20 Status: Ordered NIFEdipine 60 mg oral tablet, extended release 60 mg, 1, tablet, By Mouth, Daily, # 30 tablet, Refills 0, Tot. Refills 0, Maintenance, 04/14/20 16:03:00 EDT, Route to Pharmacy Electronically, [place] [address], 167.64, cm, 04/14/20 15:37:00 EDT, Height, 70, kg, 04/11/20 15:19:00 EDT, Dry We... Start Date: 04/14/20 Status: Ordered Pen [place], 31 G x 5 mm BD Ultra [...] 04/30/20 9:22:00 EDT, Route to Pharmacy Electronically, [facility], 167.64, cm, 04/30/20 8:23:00 EDT, Height, 70, kg, 04/11/20 15:... Start Date: 04/30/20 Stop Date: 09/30/20 Status: Ordered Problem List Condition Effective Dates Status Health Status Inform ant ESRD on hemodialysis(Confirmed) Active Diabetes mellitus(Confirmed) Active Hearing loss(Confirmed) 1 Active HTN (hypertension)(Confirmed) Active ADAM (obstructive sleep apnea)(Confirmed) Active Care Management [facility] , Sarah Gabriel (Confirmed) Active Subclinical hypothyroidism(Confirmed) Active 1Weighed 1.5 pounds at . 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
--- OUTSIDE RECORDS SUMMARY | 2023-06-19 12:39 | XMS_ITS | Continuity of Care Document ---
Author Name Unknown Organization [facility] Address [address] [place] [address]- Care Team Providers Care Sheriffs Officer Name Role Phone Kenneth CLARKE, Arleen Primary Care Physician [place] [facility] [place]/24/[place] - 09/27/[address] [address]- [facility] Discharge Disposition: A-D/C Home Attending Physician: Dung Bennett MD Admitting Physician: Winston Terrell MD Referring Physician: Not on Staff, Referring [...] Note: vis 08/15/08 2Admin Note: vis Medications Auto CPAP 8-14 cm H2O Auto CPAP 8-14 cm H2O, See Instructions, # 1 each, Refills 0, Tot. Refills 0, Maintenance, to be worn [facility] dx: G47.30 YAMIL: lifetime, 06/23/19 14:38:50 EDT, Compound Start Date: 06/23/19 Status: Ordered carvedilol 25 mg oral tablet 25 mg, By Mouth, 2 times a day, Refills 0, Maintenance, 05/23/18 11:49:25 EDT Start Date: 05/23/18 Status: Ordered Fosrenol 500 mg oral tablet, chewable = 2,000 mg, By Mouth, 3 times a day, with meals, 0 Refills, Maintenance, 09/24/19 14:47:00 EST Start Date: 09/24/19 Status: Ordered HydrALAZINE = 50 mg, By [...] tablet, 2 Refills, Maintenance, 09/27/19 12:25:00 EST,Tablet, [id number], 168, cm, 09/27/19 11:17:00 EST, Height, 70, kg, 09/24/19 17:59:00 EST, Dry Weight Start Date: 09/27/19 Status: Ordered lisinopril 40 mg oral tablet 1 tablet = 40 mg, By Mouth, Daily, # 30 tablet, 0 Refills, Maintenance, 09/13/19 10:28:54 EST, Tablet Start Date: 09/13/19 Status: Ordered NIFEdipine 60 mg oral tablet, extended release 60 mg, 1, tablet, By Mouth, 2 times a day, Refills 0, Maintenance, 09/24/19 14:50:00 EST Start Date: 09/24/19 Status: Ordered PAP Supplies - Mask, Tubing, Filters, Head Gear, Chin Strap, and Water Chamber PAP Supplies - Mask, Tubing, Filters, Head Gear, Chin Strap, and Water Chamber, See Instructions, #1 each, Refills 12, Tot. Refills 12, Maintenance, to be used with CPAP machine for dx: ADAM G47.30, 06/23/19 14:38:44 EDT, Compound Start Date: 06/23/19 Status: Ordered Pen [place], 31 G x 5 mm BD Ultra [...] 14:51:00 EST Start Date: 09/24/19 Status: Ordered Velphoro 2500 mg (500 mg [...] 1 Active HTN (hypertension)(Confirmed) Active Care Management [facility] , Diann Kasbeer [phone](Confirmed) Active Subclinical hypothyroidism(Confirmed) Active 1Weighed 1.5 pounds at . 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 Results Radiology Reports * Exam Date Time Procedure Performing Provider Status 09/24/19 11:57 AM Chest 2 Views Frontal and Lat Carole Baptiset; Parrish (Verified) Notes: (Chest 2 Views Frontal and Lat) Reason For Exam: Shortness of Breath RESULT: Chest 2 Views Frontal and Lat Chest 2 Views Frontal and Lat Reason: Shortness of Breath; Clinical Question(s): CHF; Hx of Present Illness: Pt from dialysis. Dizziness and midsternal chest heaviness. Completed approx 3 hrs of 4 hr treatment - became hypotensive to SBP 80s at dialysis.; lungs cta in all akers. COMPARISON: 01/03/2018 FINDINGS: LINES AND TUBES: None. LUNGS AND PLEURA: Clear lungs. Normal pulmonary vascularity. No pleural effusion. No pneumothorax. HEART, MEDIASTINUM AND JASON: Heart is normal in size. Normal mediastinal and hilar contour. BONES AND SOFT TISSUES: No acute abnormality. IMPRESSION: No acute abnormality. I have personally reviewed the images and I agree with this report. WSN: [id number] Dictated By: Thee Jackson DO Dictated Date/Time: 09/24/19 12:12 p Reviewed By: Bobbi Patino MD Signed By: Bobbi Patino MD Signed Date/Time: 09/24/19 12:17 pm Transcribed By: AMANDA Transcribed Date/Time: 09/24/19 12:00 pm Vital Signs Most recent to oldest [Reference Range]: 1 2 3 4 5 Height 168 cm (09/27/19 11:02 AM) 168 cm (09/27/19 3:06 AM) 168 cm (09/26/19 8:22 PM) Weight 71.3 kg (09/27/19 4:00 AM) 71.1 kg (09/26/19 10:11 AM) 71.1 kg (09/26/19 4:01 AM) Oxygen Saturation [94-100 %] 97 % (09/27/19 11:02 AM) 96 % (09/27/19 3:06 AM) 97 % (09/26/19 8:22 PM) Pulse Rate [55-90 bpm] 67 bpm (09/27/19 11:02 AM) 68 bpm (09/27/19 10:02 AM) 71 bpm (09/27/19 3:06 AM) Body Mass Index [18.5-24.99] 25.19 *H* (09/26/19 4:01 AM) 24.8 (09/24/19 2:35 PM) Blood Pressure [90-138/55-84 mm Hg] 107/59mm Hg (09/27/19 11:02 AM) 116/59mm Hg (09/27/19 10:02 AM) 116/59mm Hg (09/27/19 10:02 AM) 116/59mm Hg (09/27/19 10:02 AM) 116/59mm Hg (09/27/19 10:02 AM) Respiratory Rate [16-30 br/min] 18 br/min (09/27/19 11:02 AM) 18 br/min (09/27/19 3:06 AM) 18 br/min (09/26/19 8:22 PM) Temperature [96.8-100.4 DegF] 97.6 DegF (09/27/19 11:02 AM) 98.4 DegF (09/27/19 3:06 AM) 98.4 DegF (09/26/19 8:22 PM) Liters per Minute 0 L/min (09/24/19 11:59 AM) 0 L/min (09/24/19 10:09 AM) Mode of Delivery (Oxygen) Room air (09/27/19 11:02 AM) Room air (09/27/19 3:06 AM) Room air (09/26/19 8:22 PM) Blood pressure sites Arm, left (09/27/19 11:02 AM) Arm, left (09/27/19 3:06 AM) Arm, left (09/26/19 8:22 PM) Temperature Route Oral (09/27/19 11:02 AM) Oral (09/27/19 3:06 AM) Oral (09/26/19 8:22 PM) Dry Weight 70 kg (09/24/19 2:35 PM) Weight Obtained Via Bed scale (09/27/19 4:00 AM) Standing scale (09/24/19 2:35 PM) Dry Weight Obtained Via Standing scale (09/24/19 2:35 PM) Social History Social History Type Response Smoking Status Never smoker; Tobacc o user in household: No entered on: 09/12/15 Sex
--- OUTSIDE RECORDS SUMMARY | 2023-06-19 12:40 | XMS_ITS | Continuity of Care Document ---
Author Name Unknown Organization [facility] Address [address] [place] [address]- Care Team Providers Care Telegraph Dispatcher Name Role Phone Arleen Cooper MD Primary Care Physician Encounter [facility] [place] Date(s): 09/04/22 - 10/04/[address] [address]- Attending Physician: Enid Maharaj Admitting Physician: Enid [...] and Recorded Vaccine Date Status Refusal Reason [id number] 12y+ bivalent booster vax 1 07/17/22 Given [...] Note: vis Medications B-D PEN NDL SHRT [id number](02/10) COOPER B-D PEN NDL SHRT [id number](02/10) COOPER, See Instructions, # 100 each, 0 [...] 5 Refills, Soft Stop, 09/19/22 22:47:00 EST, [facility] #[id number], Partial fill upon patient request if the [...] Maintenance, 09/30/22 13:35:00 EST, Route toPharmacy Electronically, [facility] #[id number], 168, cm, 09/19/22 14:56:00 EST, Height, 60.2,kg, [...] 09/02/22 15:33:00 EST, Route to Pharmacy Electronically, [facility] #[id number], 168, cm, 07/30/22 15:53:00 EDT, Height, 60.2, kg, 07/24/22 0:30:00 EDT, Dry Weight Start Date: 09/02/22 Status: Ordered glucose 4 gm oral tablet, chewable 4 tablet = 16 Gm, Chew, Once, PRN as needed for low blood sugar, # 50 tablet, 0 Refills, Soft Stop,09/19/22 22:51:00 EST, Chew Tablet, [facility] #[id number], Partial fill upon patient request if the prescription is for a schedule II opioid drug... Start Date: 09/19/22 Status: Ordered insulin glargine (concentrated) 300 units/mL subcutaneous solution See Instructions, 25 units s/c in the AM at the same time every day rotate injection sites, # 12 mL, 2 Refills, Maintenance, 06/29/22 11:32:00 EDT, Solution, [facility] #[id number], Partial fillupon patient request if the prescription is... Start Date: 06/29/22 Status: Ordered insulin lispro (concentrated) 200 units/mL subcutaneous solution See Instructions, 3 units Subcutaneous Infusion for FSBS of every 100 and 1 unit additional for every 40 above 100, # 12 mL, 3 Refills, Maintenance, 06/29/22 14:22:00 EDT, [facility] #[id number], Partial fill upon patient request if the prescript... Start Date: 06/29/22 Status: Ordered levothyroxine 0.025 mg oral tablet 1.5 tablet, By Mouth, Daily, # 135 tablet, 0 Refills, [facility] #[id number], 167.64, cm, 01/23/22 11:51:00 EDT, Height, 63.7, kg, 01/30/21 22:32:00 EDT, Dry Weight Start Date: 03/27/22 Status: Ordered multivitamin Multiple Vitamins oral capsule 1 capsule, By Mouth, Daily, # 30 capsule, 0 Refills, Maintenance, 09/04/22 11:03:00 EST, Capsule, [facility] #[id number], Partial fill upon patient request if the prescription is for a schedule II opioid drug., 1 capsule By Mouth Daily,x30 days,... Start Date: 09/04/22 Stop Date: 10/04/22 Status: Ordered Pen [place], 31 G x 5 mm BD Ultra [...] 0 Refills, Maintenance, 06/28/22 11:25:00 EDT, Tablet, [facility] #[id number], Partial fill upon patient request if the [...] Refills, Maintenance, 07/10/22 12:57:00 EDT, XR Tablet, [facility] #[id number], Partial... Start Date: 07/10/22 Stop Date: 08/09/22 Status: Ordered tamsulosin 0.4 mg oral capsule 0.4 mg, 1, capsule, By Mouth, Daily, # 30 capsule, Refills 0, Tot. Refills 0, Maintenance, :30:00 EDT, Route to Pharmacy Electronically, [facility] #[id number], Partial fill upon patient request if the prescription is for a schedule II... Start Date: 07/21/22 Status: Ordered valganciclovir 450 mg oral tablet 450 mg, 1, tablet, By Mouth, Every Thursday, Thursday and Thursday, # 26 tablet, Refills 1, Tot. Refills 1, Maintenance, 06/28/22 11:26:00 EDT, Route to Pharmacy Electronically, [facility] #[id number], Partial fill upon patient request if the [...] sleep apnea) Confirmed Active N Care Management Vernell Mckenzie [phone] Confirmed Active Subclinical hypothyroidism Confirmed Active 1Weighed 1.5 pounds at . 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 Social History Social History Type Response Smoking Status Never smoker; Tobacc o user in household: No entered on: 09/12/15 Sex Hospital Consult note * Event Display: Inpatient Consult Note, Non- Authored Date: Note * Event Display: Laboratory Result Scanned Authored Date: Patient Care team information Care Team Personnel Name: Desmond Anton RN Position: [facility] RN Member Role: Primary Care Nurse Name: Eliza Ch RN Position: [facility] RN Member Role: Primary Care Nurse Name: Izzy Cooper Position: [facility] RN Member Role: Primary Care Nurse Name: Elie Alex MD Position: [facility] Renal MD Member Role: Lifetime Consulting Physician Address: Address: [address] [place] [address], [address] [facility] [place] [address]- Name: Rayray Brand Position: [facility] Physician (General Medicine) Member Role: Primary Care Nurse Name: Liudmila Hinds Position: [facility] RN Member Role: Primary Care Nurse Name: Kannan Gibbs RN Position: [facility] RN Member Role: Primary Care Nurse Name: Chase Brumfield RN Position: [facility] ED RN W/OE and Tasks Member Role: Primary Care Nurse Name: Sissy Powers RN Position: [facility] RN Member Role: Primary Care Nurse Name: Link Stein RN Position: [facility] RN Supv Member Role: Primary Care Nurse Name: Isai Weaver DO Position: [facility] Renal MD Member Role: Lifetime Consulting Physician Address: Address: [address] [place] [address] [address] [facility] [place] [address]- [place] Name: Lor Abudllahi RN Position: [facility] RN Member Role: Primary Care Nurse Name: Charity Billings RN Position: [facility] RN Member Role: Primary Care Nurse Name: Trae Hawkins III, RN Position: [facility] RN Member Role: Primary Care Nurse Name: Geoffrey Davis RN Position: [facility] RN Member Role: Primary Care Nurse Name: Yamini Soares Position: [facility] RN Member Role: Primary Care Nurse Name: Marcus Ardon RN Position: [facility] RN Member Role: Primary Care Nurse Name: Jaison Sherwood MD Position: [facility] Renal MD Member Role: Lifetime Consulting Physician Address: Address: [address] [place] [address] [address] [facility] [place] [address]- Name: Anna White RN Position: [facility] AMB Nurse Member Role: Primary Care Nurse Name: Marleny Sanchez RN Position: [facility] RN Member Role: Primary Care Nurse Name: Gabriel Chappell MD Position: [facility] Renal MD Member Role: Lifetime Consulting Physician Address: Address: [address] [place] [address] [facility] [place] [address]- [place] Name: Muriel Page RN Position: [facility] SN RN Member Role: Primary Care Nurse Name: Marielena Sheehan RN Position: [facility] RN Member Role: Primary Care Nurse Name: Nadia Hernandez RN Position: S RN Member Role: Primary Care Nurse Name: Alyssa Nguyen RN Position: [facility] RN Member Role: Primary Care Nurse Name: Елена Jules RN Position: [facility] RN Member Role: Primary Care Nurse Name: Arleen Cooper MD Position: [facility] Primary Care Physician Member Role: PCP Address: Address: [address] [place] [address]- [place] Care Team Related Persons Name: CAMI ELIAS Address: home [address] [place] [address] Name: HERMILO PANDA Address: home [address] [address] Name: JACK PANDA Address: home [address] [place] [address]
--- OUTSIDE RECORDS SUMMARY | 2023-06-19 12:40 | XMS_ITS | Continuity of Care Document ---
Author Name Unknown Organization [facility] ter Address [address] [place] [id number] Care Team Providers Care Blocker Hand Name Role Phone Matteo Beltran DO Primary Care Physician Encounter [facility] Date(s): 06/11/23 - 06/12/[address] [address] Encounter Diagnosis Diabetes mellitus with complication(Discharge Diagnosis) - 06/10/23 Discharge Disposition: A-D/C Home Attending Physician: Seema Chamorro MD Admitting Physician: Evelin Palmer MD Referring Physician: Not on Staff, Referring MD Allergies, Adverse Reactions, Alerts Substance Reaction Severity Status ibuprofen decreased kidney function Ac tive aspirin decresed kidney function Act nina Toradol 1 decreased kidney function Ac tive Robaxin itching Active Valium difficulty breathing Active Vicodin itching Active 1Pt states he is not allergic to this medication Immunizations Given and Recorded Vaccine Date Status Refusal Reason [id number] 12y+ bivalent booster vax 1 07/17/22 Given [...] to insulin injections and before applying new yris sensor (max 5 times per day), 11/25/22 10:33:00 EST, Supply, 168, cm, 11/11/22 8:46:00 EST, Height, 60.... Start Date: 11/25/22 Status: Ordered AmLODipine Liquid 10 mg, Liquid, By Mouth, 06/12/23 9:00:00 EDT Start Date: 06/12/23 Stop Date: 06/12/23 Status: Completed B-D PEN NDL MINI [id number](12/11)PRPL USE DIRECTED FOR TYPE 1 DIABETES Start Date: 11/25/22 Status: Ordered Baqsimi One Pack 3 mg nasal powder See Instructions, 3 mg Once In one nostril; dose does not need to be inhaled may repeat in 15 minutes alternate nostrils, # 1 each, 5 Refills, Soft Stop, 09/19/22 22:47:00 EST, [facility] #[id number], Partial fill upon patient request if the p... Start Date: 09/19/22 Status: Ordered Blood Pressure Monitor Blood Pressure Monitor, See Instructions, # 1 each, Refills 0, Tot. Refills 0, Maintenance, to be used to check BP daily, Dx: HTN, ESRD on HD, new onset hypotenstion with falls; just stopped nifedipine, 07/17/22 18:07:00 EDT, Supply Start Date: 07/17/22 Status: Ordered calcitriol 0.25 mcg oral capsule = 1.25 mcg, By Mouth, Every Thursday, Thursday and Thursday, # 15 tablet, 0 Refills, Maintenance, 06/12/23 10:55:00 EDT, Capsule, [facility] #[id number], Partial fill upon patient request if the prescription is for a schedule II opioid drug., 168, c... Start Date: 06/12/23 Stop Date: 07/12/23 Status: Ordered cinacalcet 30 mg oral tablet = 60 mg, By Mouth, Daily, # 30 tablet, 0 Refills, Maintenance, 06/12/23 10:55:00 EDT, Tablet, [facility] #[id number], Partial fill upon patient request if the prescription is for a schedule II opioid drug., 168, cm, 06/12/23 7:13:00 EDT, Height,... Start Date: 06/12/23 Stop Date: 07/12/23 Status: Ordered FLUoxetine 20 mg oral capsule 1, capsule, By Mouth, Daily, # 30 capsule, Refills 11, Maintenance, 09/30/22 13:35:00 EST, Route toPharmacy Electronically, [facility] #[id number], 168, cm, 09/19/22 14:56:00 EST, Height, 60.2,kg, 07/24/22 0:30:00 EDT, Dry Weight Start Date: 09/30/22 Status: Ordered FreeStyle Yris 2 Monitor See Instructions, # 1 each, Refills 0, Tot. Refills 0, Maintenance, use to check blood sugar every 8 hours, 11/17/22 8:32:00 EST, Supply, 168, cm, 11/11/22 8:46:00 EST, Height, 60.2, kg, 07/24/22 0:30:00 EDT, Dry Weight Start Date: 11/17/22 Status: Ordered FREESTYLE YRIS 2 READER DEVICE FREESTYLE YRIS 2 READER DEVICE, See Instructions, # 1 each, 0 Refills, Maintenance, USE TO CHECK BLOOD SUGAR EVERY 8 HOURS, 12/10/22 13:44:00 EDT, 168, cm, 12/05/22 10:47:00 EST, Height, 60.2, kg, 07/24/22 0:30:00 EDT, Dry Weight Start Date: 12/10/22 Status: Ordered FreeStyle Yris 2 Sensors See Instructions, # 2 each, [...] Refills, Soft Stop,09/19/22 22:51:00 EST, Chew Tablet, [facility] #[id number], Partial fill upon patient request if the prescription is for a schedule II opioid drug... Start Date: 09/19/22 Status: Ordered Lantus Solostar Pen 100 units/mL subcutaneous solution See Instructions, Please take 20 units at bedtime E11.8, # 45 mL, 3 Refills, Maintenance, 12/29/22 8:07:00 EDT, Injection, [facility] #[id number], Partial fill upon patient request if the prescription is for a schedule II opioid drug., 168, cm,... Start Date: 12/29/22 Status: Ordered levothyroxine 0.025 mg oral tablet 1.5 tablet, By Mouth, Daily, # 45 tablet, 10 Refills, Maintenance, 01/12/23 16:11:00 EDT, [facility] #[id number], 168, cm, 12/26/22 16:32:00 EDT, Height, 72.7, kg, 12/20/22 14:52:00 EDT, Dry Weight Start Date: 01/12/23 Status: Ordered multivitamin Vitamin B Complex with C and Folic Acid oral capsule TAKE 1 CAPSULE BY MOUTH ONCE DAILY Start Date: 11/25/22 Status: Ordered Norvasc 10 mg oral tablet 10 mg, 1, tablet, By Mouth, Daily, # 30 tablet, Refills 0, Tot. Refills 0, Maintenance, 06/12/23 10:55:00 EDT, Route to Pharmacy Electronically, [facility] #[id number], Partial fill upon patientrequest if the prescription is for a schedule II op... Start Date: 06/12/23 Stop Date: 07/12/23 Status: Ordered Pen Wilbur, 31 G x 5 mm BD Ultra [...] tablet = 5 mg, By Mouth, Daily, with food or milk, # 90 tablet, 0 Refills, Maintenance, 06/10/23 2:04:00 EDT, Tablet Start Date: 06/10/23 Status: Ordered tacrolimus 1 mg oral tablet, extended release = 3 mg, By Mouth, Daily in AM, Please take tacrolimus 8 mg PO daily in AM and f/u with nephrologistfor level monitoring and dose adjustment., # 240 tablet, 0 Refills, Maintenance, 07/10/22 12:57:00 EDT, XR Tablet, [facility] #[id number], Partial... Start Date: 07/10/22 Stop Date: 08/09/22 Status: Ordered traMADol 50 mg oral tablet 1 tablet = 50 mg, By Mouth, Every 12 hours, PRN as needed for pain, for 5 days, # 10 tablet, 0 Refills, Acute 06/17/23 11:55:00 EDT, 06/12/23 11:55:00 EDT, Tablet, [facility] #[id number], Partial fill upon patient request if the prescription is f... Start Date: 06/12/23 Stop Date: 06/17/23 Status: Ordered Trulicity Pen 1.5 mg/0.5 mL subcutaneous solution 0.5 mL = 1.5 mg, Subcutaneous Injection, Every week, rotate injection sites, # 2.5 mL, 6 Refills, Maintenance, 04/10/23 14:42:00 EDT, Solution, [facility] #[id number], Partial fill upon patient request if the prescription is for a schedule II opi... Start Date: 04/10/23 Status: Ordered Problem List Condition Confirmation Course Effective Dates Status H ealth Status Informant ESRD on hemodialysis Confirmed Active Depression Confirmed Active Diabetes mellitus Confirmed Active Hearing loss 1 Confirmed Active -donor kidney transplant recipient 2 Confirmed 04/11/20 Active Hyperkalemia Confirmed Active HTN (hypertension) Confirmed Active Lower back pain Confirmed Active ADAM (obstructive sleep apnea) Confirmed Active [facility]N Care Management Addy Liriano Vernell Fabian [phone] Confirmed Active Subclinical hypothyroidism Confirmed Active 1Weighed 1.5 pounds at . 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 Diagnosis Diagnosis Type Effective Dates Health Status Clinical Service Informant Diabetes mellitus with complication Discharge Diagnosis 06/10/23 Non-Specified Results Radiology Reports * Exam Date Time Procedure Performing Provider Status 06/09/23 8:34 PM Chest 2 Views Frontal and Lat Germaine Caldwell; Auth (Verified) Notes: (Chest 2 Views Frontal and Lat) Reason For Exam: Shortness of Breath, Fever;Other: RESULT: Chest 2 Views Frontal and Lat Chest 2 Views Frontal and Lat Hx of Present Illness: Pt called EMS today for increasing CP. CP has been going on for about 3 daysand has not gotten any better. Pt reports pain in now radiating to his back.; Reason: Other:; Shortness of Breath, Fever; Clinical Question(s): Pneumonia COMPARISON: None. FINDINGS: LINES AND TUBES: None. LUNGS AND PLEURA: Clear lungs. Normal pulmonary vascularity. No pleural effusion. No pneumothorax. HEART, MEDIASTINUM AND JASON: Heart is normal in size. Normal mediastinal and hilar contour. BONES AND SOFT TISSUES: No acute abnormality. IMPRESSION: No acute abnormality. WSN: [id number] Ordering Physician: Rachel Mcfarland Dictated By: Renard Harris MD Dictated Date/Time: 06/09/23 8:41 pm Reviewed By: Renard Harris MD Signed By: Renard Harris MD Signed Date/Time: 06/09/23 8:41 pm Transcribed By: AMANDA Transcribed Date/Time: 06/09/23 8:36 pm Vital Signs Most recent to oldest [Reference Range]: 1 2 3 Height 168 cm (06/12/23 11:08 AM) 168 cm (06/12/23 7:13 AM) 168 cm (06/12/23 4:53 AM) Weight 68 kg (06/11/23 6:08 AM) 68 kg (06/11/23 3:44 AM) 68 kg (06/09/23 10:25 PM) Oxygen Saturation [94-100 %] 96 % (06/12/23 4:35 PM) 99 % (06/12/23 11:08 AM) 97 % (06/12/23 7:13 AM) Pulse Rate [55-90 bpm] 90 bpm (06/12/23 4:35 PM) 88 bpm (06/12/23 11:08 AM) 90 bpm (06/12/23 7:13 AM) Body Mass Index [18.5-24.99 kg/m2] 24.09 kg/m2 (06/11/23 6:08 AM) 24.09 kg/m2 (06/11/23 3:44 AM) 24.09 kg/m2 (06/09/23 10:25 PM) Blood Pressure [90-138/55-84 mm Hg] 134/80mm Hg (06/12/23 4:35 PM) 181/85mm Hg *H* (06/12/23 11:33 AM) 181/85mm Hg *H* (06/12/23 11:08 AM) Respiratory Rate [16-30 br/min] 23 br/min (06/12/23 4:35 PM) 20 br/min (06/12/23 11:08 AM) 18 br/min (06/12/23 8:18 AM) Temperature [96.8-100.4 DegF] 98.4 DegF (06/12/23 4:35 PM) 98.2 DegF (06/12/23 11:08 AM) 99.0 DegF (06/12/23 7:13 AM) Mode of Delivery (Oxygen) Room air (06/12/23 4:35 PM) Room air (06/12/23 11:08 AM) Room air (06/12/23 7:13 AM) Blood pressure sites Arm, left (06/12/23 11:08 AM) Arm, left (06/12/23 7:13 AM) Arm, left (06/12/23 4:53 AM) Temperature Route Oral (06/12/23 11:08 AM) Oral (06/12/23 7:13 AM) Oral (06/12/23 4:53 AM) Dry Weight 68 kg (06/11/23 6:08 AM) 68 kg (06/11/23 3:44 AM) 68 kg (06/09/23 10:25 PM) Social History Social History Type Response Smoking Status Never smoker; Tobacc o user in household: No entered on: 09/12/15 Sex Admission evaluation note * Estela CLARKE, Evelin Caicedo: Darwin Carlos MD: PERFORM Event Display: Admission Note Authored Date: [id number] Patient: ??CHARISMA PANDA ? Age:??48 Years?Sex:??Male?:??1975?? Chief Complaint/Reason for Consultation from home - CP x 2 days. worse after dialysis yesterday. Pt is deak. ASL and reads lips. Pain is reproducible with deep breaths and palpation History of Present Illness Charisma Panda is a 48-year-old male with a history of deafness,??ESRD on dialysis,??type 1 diabetes mellitus, history of kidney transplant,??hypertension,??and ADAM who is here for evaluation of chest pain.?The interview was conducted with the help of an staff interpreter.?? He says this started 2 days ago when he was doing some light cleaning??around the house??and suddenly felt??a 7/10 stabbing??left-sided chest pain??that radiated towards his left shoulder.?? It was not constant but easily triggered. At first,??he hoped it would self resolve, but after several hours??the pain got worse. ??He tried taking 500 mg of Tylenol, but that did not help.?? When he presented to the ED,??thepain was 9/10??and??triggered any time he moved??or took a deep breath.??He was administered nitroglycerin in the ED, but that did not help.?? He denies recent illness, abdominal pain, nausea, vomitin g,??headache,??fever, chills, and SOB. He endorsed palpitations that happen when his blood pressureis high. ?? At the ED his systolic blood pressure was consistently above 180. He states that he used to be on amlodipine for BP control, but his pressures became too low, leading to syncope and falls, and theamlodipine was discontinued. It was resumed at 5mg in the ED, and PRN labetalol was prescribed for SBP > 180. He remained asymptomatic despite the high pressures, sleeping and resting comfortably. Review of Systems Constitutional:??No weight loss, fever, chills, weakness or fatigue. HEENT:??No visual loss, congestion, or sore throat. Respiratory:??No shortness of breath or cough. Cardiovascular:??No pedal edema. 9/10 stabbing chest pain radiating to the left shoulder associatedwith movement or deep breaths. Occasional palpitations. Gastrointestinal:??No??nausea, vomiting, diarrhea, or??constipation. No abdominal pain or blood in stool. Genitourinary:??No burning micturition. No urinary frequency or incontinence. Neurologic:??No headache, dizziness, syncope, numbness or tingling in the extremities. Musculoskeletal:??No muscle pain, back pain, joint pain or stiffness. Skin:??No rash or itching. Psychiatric:??No depression or anxiety. Objective Measurements?? Height: 168 cm (06/09/23) Weight: 68 kg (06/09/23) Dry Weight: 68 kg (06/09/23) Body Mass Index: 24.09 kg/m2 (06/09/23) ? Vital Signs?? Temperature: 98.6 DegF (06/09/23 22:25:00) Temperature Route: Oral (06/09/23 22:25:00) Pulse Rate: 84 bpm (06/10/23 06:24:00) Respiratory Rate: 18 br/min (06/10/23 06:24:00) Systolic Blood Pressure:??198 mm Hg??High (06/10/23 06:24:00) Diastolic Blood Pressure:??94 mm Hg??High (06/10/23 06:24:00) Blood pressure sites: Arm, right (06/10/23 06:24:00) Mean Arterial Pressure: 132 mm Hg (06/09/23 22:25:00) Pulse Pressure: 104 mm Hg (06/10/23 06:24:00) Oxygen Saturation: 94 % (06/10/23 06:24:00) Mode of Delivery (Oxygen): Room air (06/10/23 06:24:00) Early Warning Score: 2 (06/10/23 06:24:36) ? Physical Exam Constitutional: Alert, in no distress. Mental Status: Oriented to person, place and time. Eyes: Pupils are equal, round and reactive to light. Extraocular muscles intact. Ear, Nose and Throat: Oropharynx clear, mucous membranes moist. Respiratory: Clear to auscultation. No wheezing, rales or rhonchi. Cardiovascular: S1 S2 regular.??2/6 systolic murmur best heard at RLSB. No rubs or gallops. No edema or elevated JVP. Pain reproduced on palpation of left pectoral. Gastrointestinal: Abdomen soft, non-tender, non-distended. Neurologic: Cranial nerves II-XII grossly intact. No focal neurological deficits. Moves all extremities spontaneously. Skin: No rashes or lesions. No petechiae or purpura.??AVM on R arm patent (bruit, thrill). Musculoskeletal: No cyanosis or clubbing. No gross deformities. Normal range of motion. Psychiatric: Normal mood and affect. Assessment/Plan Assessment:??Charisma Panda is a 48-year-old male with a history of deafness, ESRD on dialysis, type 1 diabetes mellitus, history of kidney transplant, hypertension, and ADAM who is here for evaluation of chest pain. ?? Chest pain of uncertain etiology (R07.9):?? With his history of kidney transplant,??hypertension,??ESRD,??and type 1 diabetes,??Charisma is at high risk??for CAD??and??VTE.??The differential??includes??ASC,??anxiety, MSK pain, and pericarditis.??EKG??was negative??for??WA, and nitroglycerin did not help with the pain. The patient did not seem anxious on presentation and was able to sleep. MSK pain was reproduced on physical exam, and the history of abrupt onset with exertion fits with a muscle strain, but given the patient's high level of risk it would be imprudent to stop workup with this finding. Pericarditis is still a possibility, with the positional chest pain and slightly elevated CRP (2.2). The EKG was not typical for pericarditis, but the presence of T wave inversions in leads V1 and V2 could be consistent with later stage pericarditis. ?? Plan: - Consider echo - Consider Cardio consult - Cardiac monitoring - Lidocaine patch ?? Hypertensive urgency (I16.0): HTN (hypertension) (I10):?? He has a history of hypertension??treated with??amlodipine??10 mg,??but this was??discontinued??when he started to??develop??hypotension and falls.??Since that time??he reports a consistent??systolicpressure??in the 150s at home,??so??the readings we are seeing in the ED??are 30-50??mm above that e levated baseline.?He has been??asymptomatic??and comfortable, so this qualifies as??hypertensiveurgency??rather than emergency.??This is most likely??driven by his pain,??but??needs continued monitoring. ?? Plan: - BP check q4hr - Labetalol 10mg IV push PRN for SBP > 180 - Amlodipine 5mg??PO daily ?? Chronic medical conditions Diabetes mellitus with complication (E11.8):??Continue glargine -donor kidney transplant recipient (Z94.0):??Continue prednisone, tacrolimus Subclinical hypothyroidism (E03.9):??Continue levothyroxine Depression (F32.A):??Continue fluoxetine ESRD on hemodialysis (N18.6):??Continue MWF dialysis, Renal following ?? VTE Prophylaxis:??Contraindicated (uncontrolled HTN) ?VTE Prophylaxis Assessment:??Risk Level documented as Low Risk ?? Code Status:??Full ?Order Code Status:??Code Status Ordered ?? Diet: Renal ?? Darwin Perry MD, PGY-1 Pager [phone] or text via Cortext ?? Patient seen and discussed with the attending physician Dr. Palmer. ? Attending Attestation:??I have seen and evaluated this patient-- 06/10/23 in ED [facility] with [facility] tele translator and interpreter after he presented for evaluation of persisting L sided chest pain with movement/breathing and was found to have reproducible tenderness on exam but also marked HTN to 200s/100s and EKG with new anterior TWI in V1 and V2 with add on hsT [id number] trend and no events on tele andbnp 13K without signs of overload. He describes radiation to the L shoulder but no radiation to theback. The reproducible aspect seems to MSK pain but still concern for cardiogenic etiology-- HTN urgency/hypertensive heart disease with possible autonomic issues developing, Pericarditis would be a c onsideration with the pleuritic/movement related nature but the EKG does not really support that. PE is always considered but seems less likely with nl O2 sats/hr and mobility without leg swelling orpain. .Recent echo in 2021 did not show any structural abnormalities. He had been off a amlodipine for a long time - will need close monitoring with restart as had syncope/low pressures with treatment in the past. ??I have discussed the case and its management with the resident and agree with the findings and plan as documented in the resident???s note. ? Histories Allergies Allergies ?(Active and Proposed Allergies Only) Toradol? (Severity: Unknown severity, Onset: Unknown) ?Reactions: decreased kidney function ?Comments: Pt states he is not allergic to this medication Vicodin? (Severity: Unknown severity, Onset: Unknown) ?Reactions: itching Valium? (Severity: Unknown severity, Onset: Unknown) ?Reactions: difficulty breathing Robaxin? (Severity: Unknown severity, Onset: Unknown) ?Reactions: itching ibuprofen? (Severity: Unknown severity, Onset: Unknown) ?Reactions: decreased kidney function aspirin? (Severity: Unknown severity, Onset: Unknown) ?Reactions: decresed kidney function ? Past Medical History/Problem List Active Problems??(11) [phone] -donor kidney transplant recipient Depression Diabetes mellitus ESRD on hemodialysis Hearing loss HTN (hypertension) Hyperkalemia Lower back pain ADAM (obstructive sleep apnea) Subclinical hypothyroidism ? Past Surgical History Donor renal transplantation: 04/11/20 ? Social History Tobacco Details:??Never smoker, Tobacco user in household: No. No drugs or Etoh reported ? Family History No family history recorded. ? Medications Home Medications dulaglutide (Trulicity Pen 1.5 mg/0.5 mL subcutaneous solution)?0.5?Milliliter?1.5?Milligram?Subcutaneous Injection?Every week?rotate injection sites Durable Medical Equipment (Alcohol Pads)?See Instructions?use to clean skin prior to insulin injections and before applying new yris sensor (max 5 times per day) Durable Medical Equipment (Pen Wilbur, 31 G x 5 mm BD Ultra Fine III)?See Instructions?for 90?Days?use as directed for Diabetes FnxniqptO09.8 Fluoxetine (FLUoxetine 20 mg oral capsule)?1?capsule?By Mouth?Daily Glucagon (Baqsimi One Pack 3 mg nasal powder)?See Instructions?3 mg OnceIn one nostril; dose does not need to be inhaledmay repeat in 15 minutesalternate nostrils Glucose (glucose 4 gm oral tablet, chewable)?4?tab(s)?16?gram?Chew?Once?as needed?as needed for low blood sugar Insulin Glargine (Lantus Solostar Pen 100 units/mL subcutaneous solution)?See Instructions?Please take 20 units at kbmcdufK60.8 Levothyroxine (levothyroxine 0.025 mg oral tablet)?1.5?tab(s)?By Mouth?Daily Miscellaneous Rx (Blood Pressure Monitor)?See Instructions?to be used to check BP daily, Dx: HTN, ESRD on HD, new onset hypotenstion with falls; just stopped nifedipine Multivitamin (multivitamin Vitamin B Complex with C and Folic Acid oral capsule)?TAKE 1 CAPSULE BY MOUTH ONCE DAILY PredniSONE (predniSONE 5 mg oral tablet)?1?tab(s)?5?Milligram?By Mouth?Daily?with food or milk Tacrolimus (tacrolimus 1 mg oral tablet, extended release)?3?Milligram?By Mouth?Daily in AM?for 30?Days?Please take tacrolimus 8 mg PO daily in AM and f/u with customer account representative for level monitoring and dose adjustment. ? Results Recent Labs BLOOD COUNT & DIFF WBC 8.7 k/mm3 ()?? 06/10/2023 00:24 RBC 3.03 m/mm3 (Low)?? 06/10/2023 00:24 Hgb 9.0 Gm/dL (Low)?? 06/10/2023 00:24 Hct 28.6 % (Low)?? 06/10/2023 00:24 MCV 94.4 femtoliters (High)?? 06/10/2023 00:24 MCH 29.7 pg ()?? 06/10/2023 00:24 MCHC 31.5 g/dL (Low)?? 06/10/2023 00:24 Platelet Count 235 k/mm3 ()?? 06/10/2023 00:24 RDW-SD 45.5 femtoliters ()?? 06/10/2023 00:24 MPV 9.0 femtoliters (Low)?? 06/10/2023 00:24 Nucleated RBC (Automated) 0.0 #/100 WBC'S ()?? 06/10/2023 00:24 Abs. NRBC 0.0 k/mm3 ()?? 06/10/2023 00:24 Abs. Neut 6.7 k/mm3 ()?? 06/09/2023 21:30 Abs. Lymph 1.0 k/mm3 ()?? 06/09/2023 21:30 Abs. [place] 0.7 k/mm3 ()?? 06/09/2023 21:30 Abs. Eo 0.2 k/mm3 ()?? 06/09/2023 21:30 Abs. Baso 0.1 k/mm3 ()?? 06/09/2023 21:30 Neut % 76.2 % (High)?? 06/09/2023 21:30 Lymph % 11.5 % (Low)?? 06/09/2023 21:30 [place] % 8.4 % ()?? 06/09/2023 21:30 Eos % 2.7 % ()?? 06/09/2023 21:30 Baso % 0.6 % ()?? 06/09/2023 21:30 Imm Gran 0.6 % ()?? 06/09/2023 21:30 Abs. Imm Gran 0.1 k/mm3 ()?? 06/09/2023 21:30 ?? CARDIAC Nt-Probnp 95587 pg/mL (High)?? 06/09/2023 21:30 High Sensitivity Troponin (HSTnT) 153 ng/L (Critical)?? 06/10/2023 02:51 ?? CHEM GENERAL Sodium 142 mmol/L ()?? 06/10/2023 00:24 Potassium 3.7 mmol/L ()?? 06/10/2023 00:24 Chloride 95 mmol/L (Low)?? 06/10/2023 00:24 Bicarbonate Level 28 mmol/L ()?? 06/10/2023 00:24 Anion Gap 19 (High)?? 06/10/2023 00:24 Glucose Level 153 mg/dL (High)?? 06/09/2023 21:30 BUN 57 mg/dL (High)?? 06/10/2023 00:24 Creatinine-Blood 10.9 mg/dL (High)?? 06/10/2023 00:24 Estimated GFR Creatinine 5 ML/MIN/1.73 M2 ()?? 06/10/2023 00:24 Calcium 8.6 mg/dL ()?? 06/10/2023 00:24 Phosphorus 7.8 mg/dL (High)?? 06/10/2023 00:24 Magnesium 2.3 mg/dL ()?? 06/10/2023 00:24 C-Reactive Protein 2.2 mg/dL (High)?? 06/10/2023 02:51 ?? URINE OTHER Est Creatinine Clearance 7.60 mL/min ()?? 06/10/2023 01:24 ?? VIROLOGY COVID-19 by RT-PCR NEGATIVE ()?? 06/10/2023 04:28 ? Imaging(s) ?Chest 2 Views Frontal and Lat ?? 06/09/2023 20:34??by Renard Harris MD ?Chest 2 Views Frontal and Lat ?? Hx of Present Illness: Pt called EMS today for increasing CP. CP has been going on for about 3 daysand has not gotten any better. Pt reports pain in now radiating to his back.; Reason: Other:; Shortness of Breath, Fever; Clinical Question(s): Pneumonia ?? COMPARISON: None. ?? FINDINGS: ?? LINES AND TUBES: None. ?? LUNGS AND PLEURA: Clear lungs. Normal pulmonary vascularity. No pleural effusion. No pneumothorax. ?? HEART, MEDIASTINUM AND JASON: Heart is normal in size. Normal mediastinal and hilar contour. ?? BONES AND SOFT TISSUES: No acute abnormality. ?? IMPRESSION: ?? No acute abnormality. ? EKG study * Event Display: ECG 12-Lead Authored Date: Please click on pdf link to open report * Event Display: ECG 12-Lead Authored Date: Ventricular Rate: 78 BPM Atrial Rate: 78 BPM P-R Interval: 246 ms QRS Duration: 98 ms Q-T Interval: 418 ms QTC Calculation(Bazett): 476 ms P [place]: 47 degrees R [place]: 13 degrees T [place]: 38 degrees Sinus rhythm with 1st degree A-V block Possible Left atrial enlargement Borderline ECG When compared with ECG of 09-JUN-2023 18:38, MANUAL COMPARISON REQUIRED, DATA IS UNCONFIRMED Confirmed by ESTEFANIA WILLIS MD () on 06/10/2023 7:32:10 AM [place]: ESTEFANIA WILLIS MD * Event Display: ECG 12-Lead Authored Date: [id number] Please click on pdf link to open report * Event Display: ECG 12-Lead Authored Date: [id number] Ventricular Rate: 91 BPM Atrial Rate: 91 BPM P-R Interval: 244 ms QRS Duration: 92 ms Q-T Interval: 390 ms QTC Calculation(Bazett): 479 ms P [place]: 51 degrees R [place]: 16 degrees T [place]: 47 degrees Sinus rhythm with 1st degree A-V block Possible Left atrial enlargement Borderline ECG When compared with ECG of 28-MAY-2023 18:45, No significant change was found Confirmed by ESTEFANIA WILLIS MD () on 06/10/2023 11:50:20 AM [place]: ESTEFANIA WILLIS MD US Heart * Event Display: Echocardiogram - Complete Authored Date: Transthoracic Echocardiography Report (TTE) Patient Demographics Patient Name BOUSQUET, Date of Study 06/11/2023 CHARISMA [facility] Gender Male Facility Race Ethnicity Date of 1975 Height: 66.14 inches Age 48 year(s) Weight: 149.92 pounds Accession Number [id number] BSA: 1.77 m2 Room Number D321 BMI: 24.09 kg/m2 Referring Physician Hans Strickland MD Physician Medical Management Specialist Anna Gan Indications Chest pain. Clinical History Dyslipidemia. Diabetes Mellitus Type 2. Hypertension. ADAM. Hx of Kidney transplant. Study Data Type of Study TTE procedure:Echo Complete-(Doppler, Colorflow) with Contrast. Procedure Information:Definity was administered by LYNDSEY Case. Study Date06/11/2023 Start Time: 11:04 AM Study Location: [facility] [place] Adult Echo Study Status: ER Patient Status: Routine Technical Quality: Technically difficult due to body habitus. Blood Pressure:147/84 mmHg EKG: Normal sinus rhythm HR: 83 bpm Contrast Medium: Definity. Amount - 2 ml 2D Measurements LV Diastolic Dimension: 4.76 cm LV Systolic Dimension: 2.2 cm LV Septum Diastolic: 1.39 cm LV PW Diastolic: 1.47 cm AO Root Dimension: 3.35 cm LA Dimension: 3 cm LA ESV (BP):65.46 ml LVOT Stroke Volume: 82.43 ml LA ESV Index: 37 ml/m2 Stroke Volume Index46.57 ml/m2 LVOT: 2.32 cm Cardiac Index:3.86 l/min/m2 Ascending Aorta:3.1 cm Doppler Measurements AV Peak Velocity: 188 cm/s MV Peak E-Wave: 82.3 cm/s AV Peak Gradient: 14.14 mmHg MV Peak A-Wave: 108 cm/s AV Mean Gradient: 6.79 mmHg MV E/A Ratio: 0.76 AV VTI:34.34 cm MV P1/2t: 63 msec LVOT Peak Velocity: 120 cm/s LVOT VTI19.51 cm MV Deceleration Time: 214 msec AV Area (Continuity):2.4 cm2 MV Area (PHT): 3.49 cm2 TR Velocity:173 cm/s PV Peak Velocity: 140 cm/s TR Gradient:11.97 mmHg PV Peak Gradient: 7.84 mmHg E' Septal Velocity: 8.59 cm/s E' Lateral Velocity: 13.1 cm/s E/Med E':9.032240 E/Lat E':6.780779 Cardiac Anatomy Left Ventricle/Interventricular Septum The left ventricular size is normal. The left ventricular wall thickness is moderately increased. The LV systolic function is normal . The left ventricular ejection fraction is 65-70 %. There are no regional wall motion abnormalities. Normal diastolic function. Left Atrium/Interatrial Septum The left atrium is mildly dilated. Aortic Valve The aortic valve is probably trileaflet . The aortic valve appears mildly calcified. There is no aortic stenosis. There is no aortic regurgitation. Mitral Valve There is moderate mitral annular calcification. The mitral valve opening is normal. There is trivial mitral regurgitation. Aorta The ascending aorta and aortic root are normal in size. Right Ventricle The right ventricle is normal in size and function. Right Atrium The right atrium is normal in size. Pulmonic Valve The pulmonic valve appears grossly normal. Tricuspid Valve The tricuspid valve is grossly normal. There is no significant tricuspid valve regurgitation. Pumonary Artery The pulmonary artery systolic pressure estimation is within normal limits. Venous Structures The inferior vena cava appears normal. Pericardium/Extracardiac There is no significant pericardial effusion. Summary The left ventricular size is normal. The left ventricular wall thickness is moderately increased. The LV systolic function is normal . The left ventricular ejection fraction is 65-70 %. There are no regional wall motion abnormalities. Normal diastolic function. The left atrium is mildly dilated. The aortic valve is probably trileaflet . The aortic valve appears mildly calcified. There is no aortic stenosis. There is no aortic regurgitation. There is moderate mitral annular calcification. The mitral valve opening is normal. There is trivial mitral regurgitation. The right ventricle is normal in size and function. Comparison Comparison is made to the study of March 14, 2022. The left ventricular wall thickness is moderately increased. The left atrium is mildly dilated. Signature * Event Display: Echocardiogram - Complete Authored Date: Cardiology * Event Display: Stress Nuc with Regadenoson Authored Date: Please click on pdf link to open report * Event Display: Cardiac Rhythm Strips Authored Date: Hospital Progress note * Kristin Santana RN: PERFORM, SIGN, VERIFY Event Display: Progress Note Hospital Authored Date: [id number] Patient: CHARISMA PANDA Age: 48 years Sex: Male : 1975 Associated Diagnoses: None Author: Kristin Santana RN Findings Evaluation (Discharge Note: Patient A+Ox4. Hearing impaired. Communicates by ASL, lip reading or penand paper. Lungs clear,+BS, no edema. Stress test and diaylsis completed today. Okto be discharged after diaylsis today per Dr. Chamorro. Discharge paperwork reviewed and signed by using [employer]. IV and tele monitor removed. Wrter of this note spoke withmother Cami who picked patient to go home.) Discharge Information Case Management Discharge Plan : Case Management Discharge Plan Data 06/12/2023 18:20 EDT Discharge Level of Care at Discharge Home/Prison/Foster Care * Liseth Desir RN: PERFORM, SIGN, VERIFY Event Display: Progress Note Hospital Authored Date: [id number] Patient: CHARISMA PANDA Age: 48 years Sex: Male : 1975 Associated Diagnoses: None Author: Liseth Desir RN Findings Narrative/Incidental HD Sbar/Report Unit aware patient is returning to unit : Y Verbal necessary per protocol: n Nurse: Kristin _3_ hour _30_min HD/UF _3_ K bath _3.9_K blood level Access: AVF - site assessment _No s/s infection_ - Hemostasis achieved within expected time frame Y (if no explain) __2.0__ liters pulled _-10.5__ % blood volume change If the goal is not reached why? BP soft Answer yes/no to follow questions and explain if needed. Y - Ran treatment per orders N - Antibiotics given see MAR for documentation N - blood products given see task for documentation N - Temporary access removed - (describe site assessment and dressing applied) N - meds given see MAR for documentation N complication (explain complication and interventions) Post HD Vital signs documented in flow sheet : Y. * Mainor TIME STUDY CLERK, Flakito V: PERFORM Event Display: Progress Note Hospital Authored Date: [id number] Patient: ??CHARISMA PANDA ? Age:??48 Years?Sex:??Male?:??1975?? Indication for Consult from home - CP x 2 days. worse after dialysis yesterday. Pt is deak. ASL and reads lips. Pain is reproducible with deep breaths and palpation History of Present Illness/Interval History He feels much better. Still has some pain, but it's getting better.?Echocardiogram??from yesterday came back normal.?? Pharmacological stress did not show any evidence of ischemic EKG changes, still awaiting for the results of the SPECT MPI. Review of Systems 12 point review of symptoms as noted in the??HPI and reviewed in detail with the patient; pertinentpositives noted otherwise??negative. Physical Exam Vitals & Measurements T:??98.2?F?? HR:??88??(Peripheral)?? RR:??20?? BP:??181/85?? SpO2:??99%?? HT:??168??cm?? WT:??68??kg?? BMI:??24.09?? Weight lb/oz: 149 lb 15 oz General: laying in bed Mouth: moist mucous membranes.? Neck: carotid pulses symmetrical.?No carotid bruit.? Cardiac:??Regular rate and rhythm,??no significant??murmur.?No JVD, no hepatojugular reflux.? Chest: clear, bilateral air entry. Abdomen: soft, nontender, bowel sounds present.? Peripheral exam:?No pedal edema, warm peripheries, no clubbing, no cyanosis.?pulses are symmetrical, 2+.? Neurologic exam is nonfocal.? Assessment/Plan 1.??Chest pain of uncertain etiology 2.??Hypertensive urgency 3.??HTN (hypertension) 4.??Diabetes mellitus with complication 5.??-donor kidney transplant recipient 6.??Subclinical hypothyroidism 7.??Depression ESRD on hemodialysis Charisma is a pleasant 48 y/o M w/ history of diabetes, mute and deaf, ??hypertension, dyslipidemia, history of kidney transplant,?? on dialysis, ADAM. He presented to the hospital? w/ chest pain for 2 days ago when he was doing some cleaning in the house, felt a sharp stabbing pain, radiatingto his left shoulder. ??It was not constant, but easily triggered. ??After several hours, the pain continued getting worse. ??He was in severe pain even when he moved or took a deep breath. ??He was given nitro, but did not make any difference. Meantime, his blood pressure had been consistently climbing. Now, his blood pressure is in the 200 range. ??EKG was normal. ??He comes in with stabbing rhett st pain. ??Troponins were markedly abnormal. ?? 1.chest pain Given his risk factors of diabetes,??end??stage renal disease??and ongoing chest pain that is not getting any better and ??he is scheduled for an echocardiogram and nuclear stress.?? Pericarditis is in the differential, but there is no signs of this on his EKG. Does sound more like muscular skeletal. ?? Plan: ECHO and ETT porition are normal. As long as the SPECT MPI w/ no significant abnormalities he can be discharged. ? 2. BP On arrival BP was significantly elevated on amlodipine now on higher dose of 10mg QD and ?? Plan: C/w current regimen Can consider hydralazine if BP is still elevated or low dose carvedilol. ?? Thank you for allowing us to participate in the care of this patient. Patient seen and discussed with Dr. Marquez. ?? Flakito Hayward NP [facility]?? Problem List/Past Medical History Ongoing [facility] Care Management Vernell Mckenzie [phone] -donor kidney transplant recipient Depression Diabetes mellitus ESRD on hemodialysis Hearing loss HTN (hypertension) Hyperkalemia Lower back pain ADAM (obstructive sleep apnea) Subclinical hypothyroidism Procedure/Surgical History Donor renal transplantation: 04/11/20 Hospital Medications Medications (19) Active SCHEDULED: (17) Acetaminophen 325 mg Tablet (Tylenol 325 mg oral tablet) ??975 mg, By Mouth, Once Amlodipine 1mg/mL Oral Syringe (5mL) (AmLODipine Liquid) ??10 mg 10 mL, By Mouth, Daily Aspirin 81 mg EC Tablet (Aspirin Tablet) ??81 mg, By Mouth, Daily Calcitriol 0.25 mcg Capsule (calcitriol 0.25 mcg oral capsule) ??1.25 mcg, By Mouth, Every Thursday, Thursday and Thursday Cinacalcet 30mg Tablet (cinacalcet 30 mg oral tablet) ??60 mg, By Mouth, Daily Epoetin Johny biosimilar 20,000 Units/ml Inj (ESRD) (Retacrit Inj (ESRD)) ??20,000 units 1 mL, Subcutaneous Injection, Every week Fluoxetine 20 mg Capsule (FLUoxetine 20 mg oral capsule) ??20 mg, By Mouth, Daily Insulin Glargine 100 units/mL Inj (Insulin Glargine Inj) ??20 units 0.2 mL, Subcutaneous Injection,Daily at bedtime Levothyroxine 25 mcg Tablet (levothyroxine 0.025 mg oral tablet) ??37.5 mcg, By Mouth, Daily Lidocaine 5% Topical Patch (Lidocaine 5% Patch) ??1 each, Topically, Daily Lidocaine 5% Topical Patch (Lidocaine 5% Patch) ??1 each, Topically, Daily Lisinopril 10 mg Tablet (lisinopril 10 mg oral tablet) ??10 mg, By Mouth, Daily PredniSONE 5 mg Tablet (predniSONE 5 mg oral tablet) ??5 mg, By Mouth, Daily Remove Patch (Remove Lidocaine Patch) ??1 each, Topically, Daily at bedtime Remove Patch (Remove Lidocaine Patch) ??1 each, Topically, Daily at bedtime Sevelamer Carbonate 800 mg Tablet (sevelamer carbonate 800 mg oral tablet) ??1,600 mg, By Mouth, 3 times a day with meals Tacrolimus XR 1 mg Tab (tacrolimus 1 mg oral tablet, extended release) ??3 mg, By Mouth, Daily in AM CONTINUOUS: (0) PRN: (2) Acetaminophen 325 mg Tablet (Tylenol 325 mg oral tablet) ??650 mg, By Mouth, Every 4 hours Labetalol 5 mg/mL Inj (20 mL) (Labetalol Inj) ??10 mg 2 mL, IV Push Slowly, Every 4 hours Follow-Up Appointments Added Follow Up ?Time Frame ?Comments Devin RAMIREZ, Matteo?1 to 2 weeks Lab Results Cardiology Labs WBC: 10.4 k/mm3 (06/12/23) RBC:??3.15 m/mm3??Low (06/12/23) Hgb:??9.2 Gm/dL??Low (06/12/23) Hct:??29.4 %??Low (06/12/23) MCV: 93.3 femtoliters (06/12/23) MCH: 29.2 pg (06/12/23) MCHC:??31.3 g/dL??Low (06/12/23) Platelet Count: 234 k/mm3 (06/12/23) RDW-SD: 45.1 femtoliters (06/12/23) Nucleated RBC (Automated): 0 #/100 WBC'S (06/12/23) Abs. Neut:??8.1 k/mm3??High (06/11/23) Abs. Lymph: 0.8 k/mm3 (06/11/23) Abs. [place]: 0.8 k/mm3 (06/11/23) Abs. Eo: 0.1 k/mm3 (06/11/23) Abs. Baso: 0.1 k/mm3 (06/11/23) Neut %:??81.4 %??High (06/11/23) [place] %: 8 % (06/11/23) Eos %: 1.4 % (06/11/23) Baso %: 0.5 % (06/11/23) Imm Gran: 0.4 % (06/11/23) Abs. Imm Gran: 0 k/mm3 (06/11/23) INR: 1.1 (05/14/23) Protime (PT):??11.6 seconds??High (05/14/23) APTT: 27.4 seconds (05/14/23) Sodium: 140 mmol/L (06/12/23) Potassium: 3.9 mmol/L (06/12/23) Chloride:??92 mmol/L??Low (06/12/23) Bicarbonate Level: 28 mmol/L (06/12/23) Glucose Level:??151 mg/dL??High (06/12/23) Hemoglobin A1C (Monitoring):??6 %??High (05/14/23) BUN:??64 mg/dL??High (06/12/23) Creatinine-Blood:??11.6 mg/dL??High (06/12/23) Calcium: 8.6 mg/dL (06/10/23) Protein, Total:??5.4 Gm/dL??Low (07/18/22) Albumin:??4.9 Gm/dL??High (05/14/23) Alkaline Phosphatase: 124 units/L (07/22/22) AST (SGOT): 9 units/L (07/22/22) ALT (SGPT): 9 units/L (05/14/23) Bilirubin, Total: 0.5 mg/dL (07/22/22) CK, Total: 18 units/L (07/26/22) Troponin T Quant: 0.09 ng/mL (07/26/22) Nt-Probnp:??51654 pg/mL??High (06/09/23) Cholesterol: 171 mg/dL (12/05/22) HDL Cholesterol: 84 mg/dL (12/05/22) Direct Low Density Lipoprotein: 87 mg/dL (12/05/22) TSH: 3.49 uIU/mL (12/05/22) Free T4: 0.88 ng/dL (12/05/22) Diagnostic Impression ECG ECG 12-Lead ?? 02:35:35 Please click on pdf link to open report ?? Signed By: Estefania Willis DO ?? ECG 12-Lead ?? 02:35:35 Ventricular Rate: 78 BPM Atrial Rate: 78 BPM P-R Interval: 246 ms QRS Duration: 98 ms Q-T Interval: 418 ms QTC Calculation(Bazett): 476 ms P [place]: 47 degrees R [place]: 13 degrees T [place]: 38 degrees Sinus rhythm with 1st degree A-V block Possible Left atrial enlargement Borderline ECG When compared with ECG of 09-JUN-2023 18:38, MANUAL COMPARISON REQUIRED, DATA IS UNCONFIRMED Confirmed by ESTEFANIA WILLIS MD ([id number]) on 06/10/2023 7:32:10 AM ?? [place]: ESTEFANIA WILLIS MD ?? Signed By: Estefania Willis DO Stress Test NM Myocard Perf SPECT Multi ?? 12:32:59 Summary 1. Myocardial perfusion imaging is normal without any fixed or reversible perfusion defect after submaximal exercise stress test. 2. LV function is normal with an E.F. of 67% at rest and 65% with stress with normal wall motion and thickening. 3. EKG portion of the stress test is reported separately. ?? Signatures _ _ ?? Signed By: Stoney CLARKE, Víctor Alcantara Echo Echocardiogram - Complete ?? 11:04:11 Summary The left ventricular size is normal. The left ventricular wall thickness is moderately increased. The LV systolic function is normal . The left ventricular ejection fraction is 65-70 %. There are no regional wall motion abnormalities. Normal diastolic function. ?? The left atrium is mildly dilated. ?? The aortic valve is probably trileaflet . The aortic valve appears mildly calcified. There is no aortic stenosis. There is no aortic regurgitation. ?? There is moderate mitral annular calcification. The mitral valve opening is normal. There is trivial mitral regurgitation. ?? The right ventricle is normal in size and function. ?? Comparison Comparison is made to the study of March 14, 2022. The left ventricular wall thickness is moderately increased. The left atrium is mildly dilated. ?? Signature ?? Signed By: Jayden CLARKE, Hans Wooten DO: PERFORM Event Display: Progress Note Hospital Authored Date: [id number] I have seen and evaluated this patient in conjunction with the TIME STUDY CLERK/PA. ??I have discussed the case and its management with the PA/TIME STUDY CLERK as documented in the PA/TIME STUDY CLERK note. ?? VSS gen nad?? heent ncat shana eomi heart rrr no MRG lungs cta bl?? abd benign +bs ext pulses all ext no edema ROS neg 12 sys labs, meds, tests, reviewed ?? A/P as outlined above? Consult note * Event Display: Consultation Note Authored Date: [id number] CONSULTATION DATE: 06/10/2023 HISTORY OF PRESENT ILLNESS: This is a 48-year-old gentleman who is here for chest pain. I used an translator and interpreter because he is deaf and dumb, so we used sign language. History of diabetes, hypertension, dyslipidemia, history of kidney transplant, I believe he is on dialysis, history of hypertension, obstructive sleep apnea. Symptoms started about 2 days ago when hewas doing some cleaning in the house, felt a sharp stabbing pain, radiating to his left shoulder. It was not constant, but easily triggered. After several hours, the pain continued getting worse. He was in severe pain even when he moved or took a deep breath. He was given nitro, but did not make any difference. Meantime, his blood pressure had been consistently climbing. Now, his blood pressure is in the 200 range. EKG was normal. He comes in with stabbing chest pain. Troponins were markedly abnormal, but again given his renal dysfunction, it is not unlikely. PAST MEDICAL HISTORY: End-stage renal disease, on hemodialysis, diabetes, recipient of transplant kidney, hypertension, low back pain, obstructive sleep apnea. SOCIAL HISTORY: No smoking, alcohol, recreational drugs at the moment. FAMILY HISTORY: Noncontributory. MEDICATIONS: Include insulin, prednisone. He is on tacrolimus, Trulicity, prednisone, levothyroxine, labetalol, aspirin. ALLERGIES: ASPIRIN, IBUPROFEN, ROBAXIN, TORADOL, VALIUM, and VICODIN. REVIEW OF SYSTEMS: Currently, denies any further complaints of any palpitations, PND, orthopnea, orsyncope. No hearing changes, vision changes, epistaxis, bruising, rash, or arthritic complaints, nausea, vomiting, abdominal pain, urinary changes, bowel changes. No syncope, depression, anxiety or cough. Positive for chest pain, definitely reproducible. PHYSICAL EXAMINATION: VITAL SIGNS: Blood pressure was 204/97, heart rate was 88, afebrile, satting well on room air. GENERAL: Pleasant, alert and oriented x3, otherwise, no acute distress. HEENT: Normocephalic, atraumatic. PERRLA, EOMI. Moist membranes of mouth. No scleral icterus. NECK: No JVD or carotid bruits. HEART: RRR. S1, S2. No murmurs, rubs, or gallops. LUNGS: Clear to auscultation bilaterally. No use of upper respiratory muscles during respirations. ABDOMEN: Benign. Positive bowel sounds. No rebound, rigidity. Nontender, nondistended. No hepatosplenomegaly. EXTREMITIES: Pulses intact in all extremities. SKIN: Warm, dry and intact. LABORATORY DATA: All noted. CBC shows hemoglobin and hematocrit 9/28. Chemistry profile is normal except for BUN and creatinine 57/10.9, status post transplant. C-reactive protein is 2.2. Troponin is153. BNP level is 13,677. Lipids are noted. EKG reviewed. ASSESSMENT AND PLAN: A delightful gentleman presents for evaluation of his chest pain. 1. Chest pain is entirely musculoskeletal. I think with the chest pain intensity, he is having hypertensive episodes and the hypertension is currently driving his positive troponin as well as due to renal failure. We can check an echocardiogram and control his blood pressure. I would use hydralazine or nitrates to slowly bring this down. In addition, low dose carvedilol 3.125 p.o. b.i.d. and once the blood pressure is down and properly controlled, I would consider stress test. I would ideally like to do it in this hospitalization because with his disability, it was very hard to get it done as an outpatient. 2. Hypertension. Continue aggressive blood pressure management. 3. Renal failure. Followed by Renal. Thank you. We will follow. Dictated by: Hans Marquez M.D. Signing Clinician: Hans Marquez M.D. Dictated: 06/10/2023 11:44:02 Transcribed: 07:20:46 AM Transcribed by: CAMILLE DocID: [id number] PRELIMINARY REPORT UNLESS MANUALLY/ELECTRONICALLY SIGNED * Isai CLARKE, Elie P: MODIFY Event Display: Consultation Note Authored Date: [id number] CONSULTATION DATE: 06/10/2023 NEPHROLOGY CONSULTATION HISTORY OF PRESENT ILLNESS: Charisma is a 48-year-old gentleman with end- stage renal disease whousually gets hemodialysis on Thursday, Thursday and Thursday. He presents to hospital for evaluation of chest pain. He had been taking his medications at home for CP without much benefit. In the emergency room, he was given nitroglycerin without much effect. He did not have any abdominal pain, nausea,vomiting, headache, fever, chills or shortness of breath. Blood pressure has been fluctuant in the past and his amlodipine had been discontinued. When he came to hospital, his systolic blood pressurehas been found to be high. He was admitted for further management. Nephrology has been consulted toassist in his clinical care during his current hospital stay. PAST MEDICAL HISTORY: ESRD, deafness, diabetes mellitus, renal transplant, hypertension, hearing loss, hyperkalemia, obstructive sleep apnea, subclinical hypothyroidism, AV fistula. MEDICATIONS: All his home medications and current inpatient medications were reviewed. ALLERGIES: Reviewed. FAMILY HISTORY: There is no family history of any ESRD or renal transplantation. SOCIAL HISTORY: He is not a smoker. He has no history of alcohol intake. REVIEW OF SYSTEMS: All other systems have been reviewed and were negative except as mentioned in HPI. PHYSICAL EXAMINATION: GENERAL: Charisma appeared alert and awake. HEENT: His head appeared normocephalic. His oral mucous membrane appeared moist. NECK: Supple. LUNGS: Air entry was reduced at the bases. HEART: His first and second heart sounds are normal. ABDOMEN: Soft, nontender. NEUROLOGIC: He was alert and was moving his extremities. LABORATORY DATA: Sodium 142 is normal, potassium 3.7, chloride 95, bicarbonate 28, BUN 47, creatinine 10.9. Hemoglobin 9, WBC 8.7, platelet count of 235. ASSESSMENT AND PLAN: End-stage renal disease. Charisma has ESRD and is dialysis dependent. He usually gets hemodialysis on Thursday, Thursday and Thursday. He has a functioning dialysis access. We will put him on his dialysis schedule today. He is currently hypertensive and has been started on amlodipine. We will watch him carefully for orthostatic symptoms. Once his blood pressure is appropriately controlled, we will put him back on Procrit. He continues to be on tacrolimus, as he still has his renal transplant. We will closely monitor him during his current hospital stay for continued care. Thank you for giving us an opportunity to participate in the medical management of this patient. Dictated by: Elie Alex M.D. Signing Clinician: Elie Alex M.D. Dictated: 06/10/2023 10:26:09 Transcribed: 05:46:43 AM Transcribed by: CAMILLE DocID: [id number] PRELIMINARY REPORT UNLESS MANUALLY/ELECTRONICALLY SIGNED Radiology * Event Display: NM Myocard Perf SPECT Multi Authored Date: Myocardial Perfusion Imaging Demographics Patient Name AMARILYS ZAFAR Gender Male [employer] Facility Room Number D321 Height 66.1 inches Date of 1975 Weight 149.9 pounds Age 48 year(s) BSA 1.77 m2 Accession Number [id number] BMI 24.09 kg/m2 Date of study 06/11/2023 Resident Referring Physician Mariya Mcmahon MD Interpreting MARY Jose Technologist RODERICK Winkler Physician MD Vernell Monterroso Procedure Procedure Type: Myocardial Perfusion Imaging:NM Myocardial Perfusion Spect Multi Indications: Chest pain. Risk Factors The patient risk factors include:hypercholesterolemia, hypertension and diabetes mellitus. Stress Protocols Resting ECG Sinus rhythm. Resting HR:81 bpm Resting BP:144/78 mmHg Pre-stress physical exam: The patient's medications include Aspirin, Amlodipine, Fluoxetine, Insulin, Labetalol, Levothyroxine, Lisinopril, Prednisone, Tacrolimus, Cinacalcet, Sevelamer, Calcitrol, Lidocaine patch, Oxycodone. Stress Protocol:Pharmacologic - IV Regadenoson Dose: 0.4 mg Peak HR:102 bpm HR response: Not assessed Peak BP:144/78 mmHg (pharmacologic study) Predicted HR: 173 bpm HR recovery: Not Assessed % of predicted HR: 59 (Pharmacologic Study) Test duration: 1 min BP response: Resting hypertension Reason for termination:Protocol with appropriate response complete HR/BP product:[id number] Functional capacity:Not assessed Time of RP Injection:00:56 min Chest pain:Non-limiting chest pain ST Changes:No significant ST changes Arrhythmias No arrhythmias. Stress Interpretation Pharmacologic study only. Physiologic response not assessed - pharm stress. No EKG evidence of ischemia. Imaging Protocols - Two Day Rest Stress Isotope:Tc99m Sestamibi Isotope: Tc99m Sestamibi Isotope dose:10.8 mCi IV Isotope dose:26.3 mCi IV Date:06/11/2023 Date:06/12/2023 Time to Rest Imagin minutes Time to Stress Imagin minutes Technique: Gated Technique: Gated Supine Supine Imaging Results Study artifacts 1) Extracardiac activity Summed scores - Summed stress score: 0 - Summed rest score: 0 - Summed difference score: 0 Rest ejection Stress ejection Ejection fraction:72 % Ejection fraction:71 % EDV :152 ml EDV :149 ml ESV :43 ml ESV :43 ml Stroke volume :109 ml Stroke volume :106 ml LV mass :164 gr LV mass :168 gr Conclusions Summary 1. Myocardial perfusion imaging is normal without any fixed or reversible perfusion defect after Regadenoson infusion. 2. LV function is normal at rest and after IV administration of Regadenoson with normal wall motion and thickening. 3. EKG portion of the stress test is reported separately. Signatures * Event Display: NM Myocard Perf SPECT Multi Authored Date: [id number] Note * Max LOPEZ , Kristin Iverson: PERFORM Event Display: Discharge/Transfer Note Hospital Authored Date: [id number] Nursing Discharge Note Entered On: 06/12/2023 18:21 EDT Performed On: 06/12/2023 18:20 EDT by Max LOPEZ , Kristin Iverson Nursing Discharge Note 2 Discharge Time : 06/12/2023 18:20 EDT Discharge Level of Care at Discharge : Home/Prison/Foster Care Patient Left Unit Via : Wheelchair Patient Accompanied Off Unit with : Other: RN DC Instructions Provided & Signed by Pt : Yes Patient Understands D/C Instructions : Yes Patient Instructions Discharge Signed : Yes Did Pt have Specialty Bed or Wound Vac : No Max LOPEZ , Kristin Iverson - 06/12/2023 18:20 EDT * Ashtyn CLARKE, Seema: PERFORM Event Display: Discharge/Transfer Note Hospital Authored Date: [id number] Patient: ??MADYSONCHARISMA Ramirez ? Age:??48 Years?Sex:??Male?:??1975?? Patient Information Discharge Location: B Primary Care Physician: Matteo Beltran DO Admit Date/Time: 06/11/23 11:02 Discharge Disposition Discharge Disposition: ?? 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 _ Discharge Medications Amlodipine (Norvasc 10 mg oral tablet)?10?Milligram?1?tablet?By Mouth?Daily?for 30?Days Calcitriol (calcitriol 0.25 mcg oral capsule)?1.25?Microgram?By Mouth?Every Thursday, Thursday and Thursday?for 30?Days Cinacalcet (cinacalcet 30 mg oral tablet)?60?Milligram?By Mouth?Daily?for 30?Days dulaglutide (Trulicity Pen 1.5 mg/0.5 mL subcutaneous solution)?0.5?Milliliter?1.5?Milligram?Subcutaneous Injection?Every week?rotate injection sites Durable Medical Equipment (Freestyle Lite Monitor)?See Instructions?for 30?Days?use to check BG BID for type 2 DM Durable Medical Equipment (Freestyle Lite Lancets)?See Instructions?use to check BG BID for dx: Type 2 Diabetes Mellitus Durable Medical Equipment (Freestyle Lite Test Strips)?See Instructions?use to check BG BID for dx: E11.65 Durable Medical Equipment (FreeStyle Yris 2 Monitor)?See Instructions?use to check blood sugar every 8 hours Durable Medical Equipment (FreeStyle Yris 2 Sensors)?See Instructions?use to check blood sugar at least every 8 hours, replace sensors every 14 days Durable Medical Equipment (Alcohol Pads)?See Instructions?use to clean skin prior to insulin injections and before applying new yris sensor (max 5 times per day) Durable Medical Equipment (Pen Wilbur, 31 G x 5 mm BD Ultra Fine III)?See Instructions?for 90?Days?use as directed for Diabetes GockgzmyC46.8 Fluoxetine (FLUoxetine 20 mg oral capsule)?1?capsule?By Mouth?Daily Glucagon (Baqsimi One Pack 3 mg nasal powder)?See Instructions?3 mg OnceIn one nostril; dose does not need to be inhaledmay repeat in 15 minutesalternate nostrils Glucose (glucose 4 gm oral tablet, chewable)?4?tab(s)?16?gram?Chew?Once?as needed?as needed for low blood sugar Insulin Glargine (Lantus Solostar Pen 100 units/mL subcutaneous solution)?See Instructions?Please take 20 units at cdzfmhgZ89.8 Levothyroxine (levothyroxine 0.025 mg oral tablet)?1.5?tab(s)?By Mouth?Daily Miscellaneous Rx (Blood Pressure Monitor)?See Instructions?to be used to check BP daily, Dx: HTN, ESRD on HD, new onset hypotenstion with falls; just stopped nifedipine Miscellaneous Rx (B-D PEN NDL MINI [id number](12/11)PRPL)?USE DIRECTED FOR TYPE 1 DIABETES Miscellaneous Rx (FREESTYLE YRIS 2 READER DEVICE)?See Instructions?USE TO CHECK BLOOD SUGAR EVERY 8 HOURS Multivitamin (multivitamin Vitamin B Complex with C and Folic Acid oral capsule)?TAKE 1 CAPSULE BY MOUTH ONCE DAILY PredniSONE (predniSONE 5 mg oral tablet)?1?tab(s)?5?Milligram?By Mouth?Daily?with food or milk Tacrolimus (tacrolimus 1 mg oral tablet, extended release)?3?Milligram?By Mouth?Daily in AM?for 30?Days?Please take tacrolimus 8 mg PO daily in AM and f/u with customer account representative for level monitoring and dose adjustment. ? Future Appointments Thursday 1:30 PM EDT ?? With: Bethanie Horton DO Where: [facility] [address] [place] [address]- Status: Pending Thursday 10:00 AM EDT ?? With: Kenneth CLARKE, Inocencio Caicedo Where: [facility] [address] [place] [address] Drive [phone] [facility] [place] [place] [address]- [phone] Status: Pending 2022 9:00 AM EST ?? With: Erma CLARKE, Kassandra Where: [facility] [address] [place] [address]- Status: Pending Objective Assessment and Plan Chest pain of uncertain etiology (R07.9):??48-year-old male with a history of deafness, ESRD on dialysis, type 1 diabetes mellitus, history of kidney transplant, hypertension, and ADAM who is here forevaluation of chest pain. ? Chest pain of uncertain etiology (R07.9): 1 discussed with patient??he does not complain of? Real chest pain is complaining about shoulder pain back pain lower extremity pain??and generalized??aches and pains Patient was ruled out for ACS Seen by cardiology and an echocardiogram was completed which showed??preserved EF without any wall motion abnormality The left ventricular size is normal. The left ventricular wall thickness is ??moderately increased. The LV systolic function is normal . The left ??ventricular ejection fraction is 65-70 %. There are no regional wall motion ??abnormalities. Normal diastolic function. ?? The left atrium is mildly dilated. ?? The aortic valve is probably trileaflet . The aortic valve appears mildly ??calcified. There is no aortic stenosis. There is no aortic regurgitation. ?? Cardiology also recommended??a nuclear stress test??which will be completed and if unremarkable patient will be discharged home ?? Hypertensive urgency (I16.0): HTN (hypertension) (I10): ??He has a history of hypertension treated with amlodipine 10 mg, but this was discontinued when hestarted to develop hypotension and falls. There was concern of orthostatic hypotension??however on this admission his blood pressure was elevated cardiology was consulted who recommended??stress test echocardiogram and??resuming??Norvasc??10mg daily Currently blood pressure is stable with 10 mg daily Patient does not have any dizziness??or presyncopal symptoms If needed in the future??and the blood pressure was still elevated a low-dose Coreg??may be considered but for now??we will avoid aggressive??of multiple antihypertensives??as??patient??has history of hypotension.? 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 Disposition, home ?? Discharge Planning:? Vital Signs?? Temperature: 99 DegF (06/12/23 07:13:00) Temperature Route: Oral (06/12/23 07:13:00) Pulse Rate: 90 bpm (06/12/23 07:13:00) Respiratory Rate: 18 br/min (06/12/23 08:18:00) Systolic Blood Pressure:??144 mm Hg??High (06/12/23 08:09:00) Diastolic Blood Pressure: 69 mm Hg (06/12/23 08:09:00) Blood pressure sites: Arm, left (06/12/23 07:13:00) Mean Arterial Pressure: 94 mm Hg (06/12/23 07:13:00) Pulse Pressure: 75 mm Hg (06/12/23 07:13:00) Oxygen Saturation: 97 % (06/12/23 07:13:00) Mode of Delivery (Oxygen): Room air (06/12/23 07:13:00) Early Warning Score: 0 (06/12/23 08:18:56) ? . Physical Exam Pending Results No Pending Results Follow-Up Appointments Added Follow Up ?Time Frame ?Comments Matteo Beltran DO?1 to 2 weeks Post Discharge Care Discharge ?DC AFTER STRESS TEST NEG, ??06/12/23 10:57:00 EDT Home Health Face to Face ^Home[facility] Results Discharge Labs BLOOD COUNT & DIFF WBC 10.4 k/mm3 ()?? 06/12/2023 02:01 RBC 3.15 m/mm3 (Low)?? 06/12/2023 02:01 Hgb 9.2 Gm/dL (Low)?? 06/12/2023 02:01 Hct 29.4 % (Low)?? 06/12/2023 02:01 MCV 93.3 femtoliters ()?? 06/12/2023 02:01 MCH 29.2 pg ()?? 06/12/2023 02:01 MCHC 31.3 g/dL (Low)?? 06/12/2023 02:01 Platelet Count 234 k/mm3 ()?? 06/12/2023 02:01 RDW-SD 45.1 femtoliters ()?? 06/12/2023 02:01 MPV 9.5 femtoliters ()?? 06/12/2023 02:01 Nucleated RBC (Automated) 0.0 #/100 WBC'S ()?? 06/12/2023 02:01 Abs. NRBC 0.0 k/mm3 ()?? 06/12/2023 02:01 Abs. Neut 8.1 k/mm3 (High)?? 06/11/2023 06:05 Abs. Lymph 0.8 k/mm3 ()?? 06/11/2023 06:05 Abs. Manatee 0.8 k/mm3 ()?? 06/11/2023 06:05 Abs. Eo 0.1 k/mm3 ()?? 06/11/2023 06:05 Abs. Baso 0.1 k/mm3 ()?? 06/11/2023 06:05 Neut % 81.4 % (High)?? 06/11/2023 06:05 Lymph % 8.3 % (Low)?? 06/11/2023 06:05 Man[place]e % 8.0 % ()?? 06/11/2023 06:05 Eos % 1.4 % ()?? 06/11/2023 06:05 Baso % 0.5 % ()?? 06/11/2023 06:05 Imm Gran 0.4 % ()?? 06/11/2023 06:05 Abs. Imm Gran 0.0 k/mm3 ()?? 06/11/2023 06:05 ?? CARDIAC Nt-Probnp 13549 pg/mL (High)?? 06/09/2023 21:30 High Sensitivity Troponin (HSTnT) 153 ng/L (Critical)?? 06/10/2023 02:51 ?? CHEM GENERAL Sodium 140 mmol/L ()?? 06/12/2023 02:01 Potassium 3.9 mmol/L ()?? 06/12/2023 02:01 Chloride 92 mmol/L (Low)?? 06/12/2023 02:01 Bicarbonate Level 28 mmol/L ()?? 06/12/2023 02:01 Anion Gap 20 (High)?? 06/12/2023 02:01 Glucose Level 151 mg/dL (High)?? 06/12/2023 02:01 Glucose, POC 173 mg/dL (High)?? 06/11/2023 06:42 BUN 64 mg/dL (High)?? 06/12/2023 02:01 Creatinine-Blood 11.6 mg/dL (High)?? 06/12/2023 02:01 Estimated GFR Creatinine 5 ML/MIN/1.73 M2 ()?? 06/12/2023 02:01 Calcium 8.6 mg/dL ()?? 06/10/2023 00:24 Phosphorus 7.8 mg/dL (High)?? 06/10/2023 00:24 Magnesium 2.4 mg/dL (High)?? 06/12/2023 02:01 C-Reactive Protein 2.2 mg/dL (High)?? 06/10/2023 02:51 ?? URINE OTHER Est Creatinine Clearance 7.14 mL/min ()?? 06/12/2023 03:56 ? VIROLOGY COVID-19 by RT-PCR NEGATIVE ()?? 06/10/2023 04:28 ? Microbiology ?? COVID-19 (Novel Coronavirus), Rapid PCR?? Completed?? Source: Nasal Body Site: Nose Collected Dt/Tm: 06/09/2023 22:22 Last Updated Dt/Tm: 06/10/2023 05:22 ? 35minutes spent on discharge * Ashtyn CLARKE, Seema: PERFORM Event Display: Discharge/Transfer Note Hospital Authored Date: Spoke to patient's mother??who stated that patient is having generalized aches and pains,??I again discussed with her that there was no evidence of any cellulitis or joint swelling??acute gout??or??swollen joints,??also reached out to Dr. Chappell who is patient's primary??customer account representative,??we have decided to give him tramadol 50 mg every 12??as needed??for total of 5 days, if this is a persistent issue he may need outpatient??rheumatology??evaluation * Max LOPEZ , Kristin Iverson: PERFORM, MODIFY Event Display: Patient Education/Instruction Authored Date: Inpatient Adult Discharge Instructions [place] [id number] Name: CHARISMA PANDA : 1975 Visit: 06/11/2023 11:02:00 Current Date: 06/12/2023 16:56 Account: [id number] Inpatient Adult Discharge Instructions We would like to thank you for allowing us to assist you with your healthcare needs. The following includes patient education materials and information regarding your injury/illness. Our entire staffstrives to provide an excellent experience for our patients and their families. PLEASE ENSURE YOU FOLLOW-UP PER THE INSTRUCTIONS BELOW! ?? YOUR OPINION IS IMPORTANT TO US! Please complete the survey you may receive by mail or email. Your feedback will be used to make improvements to the healthcare experiences of our patients and their families. Surveys are administered by [employer] ?? If further treatment with your primary care physician or another doctor is recommended, it is important for you to keep the appointment. Call your primary care physician or return to the Emergency Department immediately if your condition worsens, fails to improve, or new symptoms develop. If you need to find a doctor, you can call [facility] Link for a referral at [phone] or toll free at [phone] ([phone]) or log in to [email or web address].. ?? [facility], in keeping with [facility] guidance, no longer requires face masks for staff, patientsor visitors in most situations. Similiar to time spent indoors at other locations, there is the chance that you were exposed to repiratory viruses during your time with us (such as flu or COVID-19). If you develop symptoms concerning for a viral respiratory infection, please seek testing (and treatment if indicated) from your medical provider or home test kit. ?? You can view and manage your care through the patient portal or by using a health care perlita of your choosing. [employer] is a website that allows you to securely view your medical information including your hospital discharge summary, office visit summaries, medications and follow-up visits. You can also request appointments, renew medications, and request access to your medical information using a health care perlita of your choosing, or just ask a question. You can enroll at [email or web address] or register during your next office visit. You have been discharged from [facility], Patient Care Unit: D3B. If you have any questions regarding these instructions after you leave, please call us and we will be happy to assist you. [facility] Your Care Team Attending Physician Seema Chamorro MD Consulting Providers Seema Chamorro MD; Aleksandr Salazar MD; Hans Marquez DO Discharging Providers Seema Chamorro MD Reason for Admission from home - CP x 2 days. worse after dialysis yesterday. Pt is deak. ASL and reads lips. Pain is reproducible with deep breaths and palpation Your Diagnosis Diabetes mellitus with complication Depression HTN (hypertension) Hypertensive urgency Subclinical hypothyroidism -donor kidney transplant recipient Chest pain of uncertain etiology ESRD on hemodialysis Tests Performed Below is a partial list of the tests performed during your hospitalization. You may have had other tests and procedures not included in this list. Please discuss all test results with your provider. Basic Metabolic Panel BUN Calcium Level CBC CBC w/ Differential COVID-19 (Novel Coronavirus), Rapid PCR Creatinine CRP Electrolytes Glucose Level GLUCOSE POC High??Sensitivity??Troponin T Lytes Magnesium Level Phosphorus Level ProBNP Troponin T, High Sensitivity XR Chest 2 Views Frontal and Lat Primary Care Provider Matteo Beltran DO Advance Directive Health Care Proxy on File Yes - Health Care Proxy Discharge Vitals Temperature: 98.2 DegF Height: 168 cm Pulse Rate: 88 bpm Weight: 68 kg Respiratory Rate: 20 br/min Body Mass Index: 24.09 kg/m2 Systolic Blood Pressure:??181 mm Hg??High Body surface area: 1.78 Diastolic Blood Pressure:??85 mm Hg??High ?? Oxygen Saturation: 99 % ?? Studies Pending All tests and labs ordered during this hospital stay have been completed unless listed below. Please discuss all pending results with your provider listed above in these instructions. ?? No incomplete studies found What to do next Instructions From Your Doctor Discharge Orders Scheduled Follow-Up Appointments Thursday 1:30 PM EDT ?? With: Bethanie Horton DO Where: [facility] [address] [place] [address]- Status: Pending Thursday 10:00 AM EDT ?? With: Kenneth CLARKE, Inocencio Caicedo Where: [facility] [phone] [facility] [place] [address]- [phone] Status: Pending 2022 9:00 AM EST ?? With: Kassandra Ritchie MD Where: [facility] [address] [place] [address]- Status: Pending You Need to Schedule the Following Appointments Follow Up with??Matteo Beltran DO When:??Within 1 to 2 weeks Discharge Medications ISHANZIONITZELMILEY :1975 Visit Date:06/11/2023 Medications: Please continue your medications until treatment is completed or stopped by your provider. Medications not listed below should be discontinued. Discuss any questions related to medications with your provider. What How Much When Why Instructions Next Dose New Amlodipine (Norvasc 10 mg oral tablet) 1 tab(s) Oral Daily Duration: 30 Days Pickup at [facility] #[id number] take tomorrow morning New Calcitriol (calcitriol 0.25 mcg oral capsule) 1.25 Microgram Oral Thursday, Thursday and Thursday Duration: 30 Days Pickup at [facility] #[id number] take Thursday New Cinacalcet (cinacalcet 30 mg oral tablet) 60 Milligram Oral Daily Duration: [id number] take tomorrow morning New Tramadol (traMADol 50 mg oral tablet) 1 tab(s) Oral Every 12 hours as needed for as needed for pain Duration: 5 Days Pickup at [facility] #[id number] take every 12 hours as needed for pain Unchanged dulaglutide (Trulicity Pen 1.5 mg/ 0.5 mL subcutaneous solution) 0.5 Milliliter Subcutaneous Injection Every week 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 take as directed Unchanged Durable Medical Equipment (Alcohol Pads) See instructions use to clean skin prior to insulin injections and before applying new yris sensor (max 5 times perday) ?? Unchanged Durable Medical Equipment (FreeStyle Yris 2 Monitor) See instructions use to check blood sugar every 8 hours ?? Unchanged Durable Medical Equipment (FreeStyle Yris 2 Sensors) See instructions use to check blood sugar at least every 8 hours, replace sensors every 14 days ?? Unchanged Durable Medical Equipment (Freestyle Lite Lancets) See instructions use to check BG BID for dx: Type 2 Diabetes Mellitus ?? Unchanged Durable Medical Equipment (Freestyle Lite Monitor) See instructions Duration: 30 Days use to check BG BID for type 2 DM ?? Unchanged Durable Medical Equipment (Freestyle Lite Test Strips) See instructions use to check BG BID for dx: E11.65 ?? Unchanged Durable Medical Equipment (Pen Wilbur, 31 G x 5 mm BD Ultra Fine III) See instructions Diabetes mellitus with complication Duration: 90 Days use as directed for Diabetes Mellitus E11.8 ?? Unchanged Fluoxetine (FLUoxetine 20 mg oral capsule) 1 capsule Oral Daily take tomorrow morning Unchanged Glucagon (Baqsimi One Pack 3 mg nasal powder) See instructions Diabetes mellitus 3 mg Once In one nostril; dose does not need to be inhaled may repeat in 15 minutes alternate nostrils ?? use as directed Unchanged Glucose (glucose 4 gm oral tablet, chewable) 4 tab(s) Chew Once as needed for as needed for low blood sugar Diabetes mellitus take as directed Unchanged Insulin Glargine (Lantus Solostar Pen 100 units/ mL subcutaneous solution) See instructions Diabetes mellitus with complication Please take 20 units at bedtime E11.8 ?? take tonight Unchanged Levothyroxine (levothyroxine 0.025 mg oral tablet) 1.5 tab(s) Oral Daily take tomorrow morning Unchanged Miscellaneous Rx (B-D PEN NDL MINI [id number]()PRPL) USE DIRECTED FOR TYPE 1 DIABETES ?? Unchanged Miscellaneous Rx (Blood Pressure Monitor) See instructions to be used to check BP daily, Dx: HTN, ESRD on HD, new onset hypotenstion with falls; just stopped nifedipine ?? Unchanged Miscellaneous Rx (FREESTYLE YRIS 2 READER DEVICE) See instructions USE TO CHECK BLOOD SUGAR EVERY 8 HOURS ?? Unchanged Multivitamin (multivitamin Vitamin B Complex with C and Folic Acid oral capsule) TAKE 1 CAPSULE BY MOUTH ONCE DAILY ?? take tomorrow morning Unchanged PredniSONE (predniSONE 5 mg oral tablet) 1 tab(s) Oral Daily with food or milk ?? take tomorrow morning Unchanged Tacrolimus (tacrolimus 1 mg oral tablet, extended release) 3 Milligram Oral Daily in the morning Duration: 30 Days Please take tacrolimus 8 mg PO daily in AM and f/ u with customer account representative for level monitoring and doseadjustment. ?? take tomorrow morning Pharmacy Information [facility] #[id number]: [address], [place] [id number] [phone] Test Results Below is a partial list of the most recent Laboratory test results done prior to this discharge. You may have had other tests and procedures not included in this list. Please discuss all test resultswith your provider. Est Creatinine Clearance - 7.14 mL/min (06/12/2023) Basic Metabolic Panel (06/09/2023) ???Sodium - 141 mmol/L???Potassium - 3.6 mmol/L???Chloride - 92 mmol/L???Bicarbonate Level - 29 mmol/L???Anion Gap - 20???Glucose Level - 153 mg/dL???BUN - 58 mg/dL???Creatinine-Blood - 10.4 mg/dL???Estimated GFR Creatinine - 6 ML/MIN/1.73 M2???Calcium - 8.9 mg/dL BUN (06/12/2023) ???BUN - 64 mg/dL Calcium Level (06/10/2023) ???Calcium - 8.6 mg/dL CBC (06/12/2023) ???WBC - 10.4 k/mm3???RBC - 3.15 m/mm3???Hgb - 9.2 Gm/dL???Hct - 29.4 %???MCV - 93.3 femtoliters???MCH - 29.2 pg???MCHC - 31.3 g/dL???Platelet Count - 234 k/mm3???RDW-SD - 45.1 femtoliters???MPV - 9.5 femtoliters???Nucleated RBC (Automated) - 0.0 #/100 WBC'S???Abs. NRBC - 0.0 k/mm3 CBC w/ Differential (06/11/2023) ???WBC - 10.0 k/mm3???RBC - 3.33 m/mm3???Hgb - 9.9 Gm/dL???Hct - 30.9 %???MCV - 92.8 femtoliters???MCH - 29.7 pg???MCHC - 32.0 g/dL???Platelet Count - 227 k/mm3???RDW-SD - 44.8 femtoliters???MPV - 9.0 femtoliters???Nucleated RBC (Automated) - 0.0 #/100 WBC'S???Abs. NRBC - 0.0 k/mm3???Abs. Neut - 8.1 k/mm3???Abs. Lymph - 0.8 k/mm3???Abs. Manatee - 0.8 k/mm3???Abs. Eo - 0.1 k/mm3???Abs. Baso - 0.1 k/mm3???Neut % - 81.4 %???Lymph % - 8.3 %???Manatee % - 8.0 %???Eos % - 1.4 %???Baso % - 0.5 %???Imm Gran - 0.4 %???Abs. Imm Gran - 0.0 k/mm3 COVID-19 (Novel Coronavirus), Rapid PCR (06/10/2023) ???COVID-19 by RT-PCR - NEGATIVE Creatinine (06/12/2023) ???Creatinine-Blood - 11.6 mg/dL???Estimated GFR Creatinine - 5 ML/MIN/1.73 M2 CRP (06/10/2023) ???C-Reactive Protein - 2.2 mg/dL Electrolytes (06/12/2023) ???Sodium - 140 mmol/L???Potassium - 3.9 mmol/L???Chloride - 92 mmol/L???Bicarbonate Level - 28 mmol/L???Anion Gap - 20 Glucose Level (06/12/2023) ???Glucose Level - 151 mg/dL GLUCOSE POC (06/11/2023) ???Glucose, POC - 173 mg/dL High??Sensitivity??Troponin T (06/09/2023) ???High Sensitivity Troponin (HSTnT) - 161 ng/L Lytes (06/11/2023) ???Sodium - 138 mmol/L???Potassium - 3.8 mmol/L???Chloride - 92 mmol/L???Bicarbonate Level - 27 mmol/L???Anion Gap - 19 Magnesium Level (06/12/2023) ???Magnesium - 2.4 mg/dL Phosphorus Level (06/10/2023) ???Phosphorus - 7.8 mg/dL ProBNP (06/09/2023) ???Nt-Probnp - 83904 pg/mL Troponin T, High Sensitivity (06/10/2023) ???High Sensitivity Troponin (HSTnT) - 153 ng/L Allergies (NKA means No Known Allergies) Robaxin??(itching) Toradol??(decreased kidney function) Valium??(difficulty breathing) Vicodin??(itching) aspirin??(decresed kidney function) ibuprofen??(decreased kidney function) Problems Active Problems??(11) [facility] [phone]?? -donor kidney transplant recipient?? Depression?? Diabetes mellitus?? ESRD on hemodialysis?? Hearing loss?? HTN (hypertension)?? Hyperkalemia?? Lower back pain?? ADAM (obstructive sleep apnea)?? Subclinical hypothyroidism?? Education Materials Below is the list of Educational Leaflet Providered with your Discharge Instructions. Noncardiac Chest Pain?? Valuables and Belongings I fully understand and agree that [facility] accepts no responsibility for all my personal property including clothing, toilet articles, radios, jewelry, dentures, hearing aids, rings, money, or any other property that is in my possession or is brought to me after admission. I understand certain valuables may be placed in a hospital safe for a short period of time. I understand that the hospital is not liable for loss or damage due to accident, fire, or other natural occurrence while said property is in the safe. I accept full responsibility for any personal property that I keep with me, and will not hold the hospital responsible in case of loss or disappearance. I acknowledge that i have been encouraged to send valuables and belongings home. ?? Review of Valuable and Belonging List: With patient, With witness Date for Pt to Sign Valuables/Belongings: 06/10/23 05:27:00 ?? Other Discharge Information ? Pulmonary Rehab Status?? Pulmonary Rehab Discharge Status?? Respiratory Rate: 20 br/min ? Common Emergency Awareness Tips IS IT A STROKE? Act FAST and Check for these signs: FACE Does the face look uneven? ARM Does one arm drift down? SPEECH Does their speech sound strange? TIME Call at any sign of stroke ?? Heart Attack Signs Chest discomfort: Most heart attacks involve discomfort in the center of the chest and lasts more than a few minutes, or goes away and comes back. It can feel like uncomfortable pressure, squeezing, fullness or pain. Discomfort in upper body: Symptoms can include pain or discomfort in one or both arms, back, neck, jaw or stomach. Shortness of breath: With or without discomfort. Other signs: Breaking out in a cold sweat, nausea, or lightheaded. Remember, MINUTES DO MATTER. If you experience any of these heart attack warning signs, call to get immediate medical attention! ?? Smoking can increase your chances of developing chronic health problems and can cause harmful effects to other family members in your house. If you smoke, you are strongly encouraged to quit. Please call [facility] Online Link at [phone] or 7-245-814-PCTFNG ([phone]) or log in to [email or web address] for referrals to smoking cessation programs. ?? 632 Suicide & Crisis Lifeline is available 20/04 if you or someone you know needs to find a reason to keep living. By calling 419 you'll be connected to a skilled, trained counselor at a crisis center in your area. INPATIENT DISCHARGE INSTRUCTIONS SIGNATURE PAGE CHARISMA PANDA Location:[facility] Registration Date and Time:06/11/2023 11:02 EDT Primary Care Physician: Matteo Beltran DO, Attending Physician: Ashtyn CLARKE, [facility], I CHARISMA PANDA, have received the above patient education materials/instructions and have verbalized understanding. If ambulance or transport services are being used I further acknowledge being given a choice of service. ?? If you need to contact me, please call me at this number: . Patient/Manager Learning Name: Patient/Manager Learning Signature: Relationship to Patient: Witness Name/Signature: Date: * Max LOPEZ , Kristin Iverson: PERFORM Event Display: Patient Education Leaflets Authored Date: [id number] Noncardiac Chest Pain ?? [id number] Noncardiac Chest Pain In most cases, people who come to the emergency room with chest pain don???t have a problem with their heart. Instead, the pain is caused by other conditions. It's important for the healthcare team to be sure you are not having a life-threatening cause for chest pain such as: ??? Heart attack ??? Blood clot in the lungs ??? Collapsed lung ??? Ruptured esophagus ??? Tearing of the aorta Once these major causes have been ruled out, you may have further evaluation for other causes of chest pain. These may be problems with the lungs, muscles, bones, digestive tract, nerves, or mental health. They include: ??? Inflammation around the lungs (pleurisy) ??? Collapsed lung (pneumothorax) ??? Lung inflammation (pleuritis or pneumonitis) ??? Fluid around the lung (pleural effusion) ??? Lung cancer (rare cause of chest pain) ??? Inflamed cartilage between the ribs (costochondritis) ??? Fibromyalgia ??? Rheumatoid arthritis ??? Chest wall strain ??? Reflux ??? Stomach ulcer ??? Spasms of the esophagus ??? Gall stones ??? Gallbladder inflammation ??? Panic or anxiety attacks ??? Emotional distress Your pain doesn???t seem to be coming from your heart. But sometimes the signs of a serious problemtake more time to appear. Continue to watch for the warning signs listed below. Home care Follow these guidelines when caring for yourself at home: ??? Rest today and don't do any strenuousactivity. ??? Take any prescribed medicine as directed. ?? Follow-up care Follow up with your healthcare provider as advised. ?? Call 911 Call 911 if any of these occur: ??? A change in the type of pain: if it feels different, becomes more severe, lasts longer, or begins to spread into your shoulder, arm, neck, jaw or back ??? Shortness of breath or increased pain with breathing ??? Weakness, dizziness, or fainting ??? Rapid heart beat ??? Crushing sensation in your chest ?? When to seek medical advice Call your healthcare provider right away if any of these occur: ??? Cough with dark colored sputum (phlegm) or blood ??? Fever of 100.4??F (38??C) or higher, or as directed by your healthcare provider ??? Swelling, pain or redness in one leg ?? Last Reviewed Date: 2021 ?? [id number] [employer]. All rights reserved. This information is not intended as a substitute for professional medical care. Always follow your healthcare professional's instructions. ?? Patient Care team information Care Team Personnel Name: Desmond Anton RN Position: [facility] RN Member Role: Primary Care Nurse Name: Eliza Ch RN Position: [facility] RN Member Role: Primary Care Nurse Name: Izzy Cooper Position: [facility] RN Member Role: Primary Care Nurse Name: Elie Alex MD Position: [facility] Renal MD Member Role: Lifetime Consulting Physician Address: Address: [address] [place] [address], [address] [facility] [place] [address]- Name: Rayray Brand Position: [facility] Physician (General Medicine) Member Role: Primary Care Nurse Name: Jaziel Flowers RN Position: [facility] RN Member Role: Primary Care Nurse Name: Liudmila Hinds Position: [facility] RN Member Role: Primary Care Nurse Name: Kannan Gibbs RN Position: [facility] RN Member Role: Primary Care Nurse Name: Chase Brumfield RN Position: [facility] ED RN W/OE and Tasks Member Role: Primary Care Nurse Name: Sissy Powers RN Position: S RN Member Role: Primary Care Nurse Name: Link Stein RN Position: [facility] RN Supv Member Role: Primary Care Nurse Name: Isai Weaver DO Position: [facility] Renal MD Member Role: Lifetime Consulting Physician Address: Address: [address] [place] [address] [address] [facility] [place] [address]- [place] Name: Lor Abdullahi RN Position: [facility] RN Member Role: Primary Care Nurse Name: Charity Billings RN Position: [facility] RN Member Role: Primary Care Nurse Name: Trae Hawkins III, RN Position: [facility] RN Member Role: Primary Care Nurse Name: Yamini Soares Position: [facility] RN Member Role: Primary Care Nurse Name: Marcus Ardon RN Position: [facility] RN Member Role: Primary Care Nurse Name: Jaison Sherwood MD Position: [facility] Renal MD Member Role: Lifetime Consulting Physician Address: Address: [address] [place] [address] [address] [facility] [place] [address]- Name: Anna White RN Position: [facility] AMB Nurse Member Role: Primary Care Nurse Name: Mery Benavides Position: [facility] Associate Professional Member Role: Lifetime Consulting Provider Address: Address: [address] [place] [address] [facility] [place] [address]- Name: Marleny Sanchez RN Position: [facility] RN Member Role: Primary Care Nurse Name: Matteo Beltran DO Position: [facility] Resident Member Role: PCP Address: Address: [address] [place] [address]- Name: Gabriel Chappell MD Position: [facility] Renal MD Member Role: Lifetime Consulting Physician Address: Address: [address] [place] [address] [facility] [place] [address]- Name: Muriel Page RN Position: [facility] SN RN Member Role: Primary Care Nurse Name: Marielena Sheehan RN Position: [facility] RN Member Role: Primary Care Nurse Name: Nadia Hernandez RN Position: [facility] RN Member Role: Primary Care Nurse Name: Gina Wallace LPN Position: [facility] RN Member Role: Primary Care Nurse Name: Елена Jules RN Position: [facility] RN Member Role: Primary Care Nurse Name: Gerry DÍAZ Attending Position: [facility] ED Medicine MD Name: Irina Castillo Position: [facility] GEMMA [facility] Member Role: Biodiesel Engineering Manager Name: Meme Roca RN Position: [facility] ED RN W/OE and Tasks Member Role: Patient Care Provider Care Team Related Persons Name: CAMI ELIAS Address: home [address] [id number] Name: HERMILO PANDA Address: home [address] [address] Name: JACK PANDA Address: [address] [address]
--- OUTSIDE RECORDS SUMMARY | 2023-06-19 12:40 | XMS_ITS | Continuity of Care Document ---
Author Name Unknown Organization [facility] Address [address] [place] [address]- Care Team Providers Care Lead Pl Sql Developer Name Role Phone Arleen Cooper MD Primary Care Physician [place] [facility]17[place] - 02/16/[address] [address]- Allergies, Adverse Reactions, Alerts Substance Reaction Severity [...] 02/18/21 16:31:00 EDT, Route to Pharmacy Electronically, [facility] #[id number], Partial fill upon patientrequest if the prescription is for a schedule II op... Start Date: 02/18/21 Stop Date: 08/17/21 Status: Ordered B-D PEN NDL SHRT [id number](02/10) COOPER B-D PEN NDL SHRT [id number](02/10) COOPER, See Instructions, # 100 each, 0 [...] 07/18/20 11:05:00 EDT, Route to Pharmacy Electronically, [facility], 167.64, cm, 07/12/20 8:38:00 EDT, Height, 70, kg, 04/11/20 15:19:00... Start Date: 07/18/20 Stop Date: 08/17/20 Status: Ordered Envarsus XR 1 mg oral tablet, extended release 4 tablet = 4 mg, By Mouth, Daily in AM, # 240 tablet, 0 Refills, Maintenance, 04/12/20 12:33:00 EDT, [facility], 167.64, cm, 04/12/20 4:21:00 EDT, [...] 01/23/22 16:09:00 EDT, Route to Pharmacy Electronically, [facility] #[id number], Partial fill upon patient request if the prescription is for a jana... Start Date: 01/23/22 Status: Ordered Kayexcelate Powder Kayexcelate Powder, 30 grams, By Mouth, Daily, # 454 Gm, Refills 1, Tot. Refills 1, Maintenance, Mix 8 level teaspoons in water or apple juice & drink by mouth today & tomorrow, 04/19/20 15:08:00 EDT, Pt to [facility] 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 Start Date: 04/19/20 Stop Date: 06/18/20 Status: Ordered Lantus Solostar Pen 100 units/mL subcutaneous solution = 35 units, Subcutaneous Injection, Daily at bedtime, # 12 mL, 11 Refills, Maintenance, 01/18/22 14:50:00 EDT, [facility] #[id number], 167.64, cm, 01/09/22 13:27:00 EDT, Height, 63.7, kg, 01/30/21 22:32:00 EDT, Dry Weight Start Date: 01/18/22 Status: Ordered levothyroxine 0.025 mg oral tablet 1.5 tablet = 37.5 mcg, By Mouth, Daily, You are due for thyroid lab work. Go to the lab, # 45 tablet, 0 Refills, Maintenance, 01/18/22 14:50:00 EDT, Tablet, [facility] #[id number], 167.64, cm, 01/09/22 13:27:00 EDT, Height, 63.7, kg, 01/30/21 22:... Start Date: 01/18/22 Status: Ordered Pen [place], 31 G x 5 mm BD Ultra [...] pack/packet, 1 Refills, Maintenance, 06/21/20 16:51:00 EDT, [facility], Deliver to pt in clinic [...] (obstructive sleep apnea)(Confirmed) Active N Care Management [facility] , Vernell Rui [phone](Confirmed) Active Subclinical hypothyroidism(Confirmed) Active 1Weighed 1.5 pounds at . 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
--- OUTSIDE RECORDS SUMMARY | 2023-06-19 12:40 | XMS_ITS | Continuity of Care Document ---
Author Name Unknown Organization [facility] Address [address] [place] [address]- Care Team Providers Care Head Bucker Name Role Phone Kenneth CLARKE, Arleen Primary Care Physician [place] [facility] [place] 09/16/22 - 10/16/[address] [address]- Allergies, Adverse Reactions, Alerts Substance Reaction Severity Status ibuprofen decreased kidney function Ac tive aspirin decresed kidney function Act nina Toradol 1 decreased kidney function Ac tive Robaxin itching Active Valium difficulty breathing Active Vicodin itching Active 1Pt states he is not allergic to this medication Immunizations Given and Recorded Vaccine Date Status Refusal Reason [id number] 12y+ bivalent booster vax 1 07/17/22 Given [...] Note: vis Medications B-D PEN NDL SHRT [id number](02/10) COOPER B-D PEN NDL SHRT [id number](02/10) COOPER, See Instructions, # 100 each, 0 [...] each, 5 Refills, Soft Stop, 09/19/22 22:47:00 [facility] #[id number], Partial fill upon patient request if the [...] Maintenance, 09/30/22 13:35:00 EST, Route toPharmacy Electronically, [facility] #[id number], 168, cm, 09/19/22 14:56:00 EST, Height, 60.2,kg, [...] 09/02/22 15:33:00 EST, Route to Pharmacy Electronically, [facility] #[id number], 168, cm, 07/30/22 15:53:00 EDT, Height, 60.2, kg, 07/24/22 0:30:00 EDT, Dry Weight Start Date: 09/02/22 Status: Ordered glucose 4 gm oral tablet, chewable 4 tablet = 16 Gm, Chew, Once, PRN as needed for low blood sugar, # 50 tablet, 0 Refills, Soft Stop,09/19/22 22:51:00 EST, Chew Tablet, [facility] #[id number], Partial fill upon patient request if the prescription is for a schedule II opioid drug... Start Date: 09/19/22 Status: Ordered insulin glargine (concentrated) 300 units/mL subcutaneous solution See Instructions, 25 units s/c in the AM at the same time every day rotate injection sites, # 12 mL, 2 Refills, Maintenance, 06/29/22 11:32:00 EDT, Solution, [facility] #[id number], Partial fillupon patient request if the prescription is... Start Date: 06/29/22 Status: Ordered insulin lispro (concentrated) 200 units/mL subcutaneous solution See Instructions, 3 units Subcutaneous Infusion for FSBS of every 100 and 1 unit additional for every 40 above 100, # 12 mL, 3 Refills, Maintenance, 06/29/22 14:22:00 EDT, [facility] #[id number], Partial fill upon patient request if the prescript... Start Date: 06/29/22 Status: Ordered levothyroxine 0.025 mg oral tablet 1.5 tablet, By Mouth, Daily, # 135 tablet, 0 Refills, [facility] #[id number], 167.64, cm, 01/23/22 11:51:00 EDT, Height, 63.7, kg, 01/30/21 22:32:00 EDT, Dry Weight Start Date: 03/27/22 Status: Ordered multivitamin Multiple Vitamins oral capsule 1 capsule, By Mouth, Daily, # 30 capsule, 0 Refills, Maintenance, 09/04/22 11:03:00 EST, Capsule, [facility] #[id number], Partial fill upon patient request if the prescription is for a schedule II opioid drug., 1 capsule By Mouth Daily,x30 days,... Start Date: 09/04/22 Stop Date: 10/04/22 Status: Ordered Pen [place], 31 G x 5 mm BD Ultra [...] 0 Refills, Maintenance, 06/28/22 11:25:00 EDT, Tablet, [facility] #[id number], Partial fill upon patient request if the [...] Refills, Maintenance, 07/10/22 12:57:00 EDT, XR Tablet, [facility] #[id number], Partial... Start Date: 07/10/22 Stop Date: 08/09/22 Status: Ordered tamsulosin 0.4 mg oral capsule 0.4 mg, 1, capsule, By Mouth, Daily, # 30 capsule, Refills 0, Tot. Refills 0, Maintenance, :30:00 EDT, Route to Pharmacy Electronically, [facility] #[id number], Partial fill upon patient request if the prescription is for a schedule II... Start Date: 07/21/22 Status: Ordered valganciclovir 450 mg oral tablet 450 mg, 1, tablet, By Mouth, Every Thursday, Thursday and Thursday, # 26 tablet, Refills 1, Tot. Refills 1, Maintenance, 06/28/22 11:26:00 EDT, Route to Pharmacy Electronically, [facility] #[id number], Partial fill upon patient request if the [...] Active ADAM (obstructive sleep apnea) Confirmed Active [facility] Care Management Vernell Mckenzie [phone] Confirmed Active Subclinical hypothyroidism Confirmed Active 1Weighed 1.5 pounds at . 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 Social History Social History Type Response Smoking Status Never smoker; Tobacc o user in household: No entered on: 09/12/15 Sex Patient Care team information Care Team Personnel Name: Desmond Anton RN Position: [facility] RN Member Role: Primary Care Nurse Name: Eliza Ch RN Position: [facility] RN Member Role: Primary Care Nurse Name: Izzy Cooper Position: [facility] RN Member Role: Primary Care Nurse Name: Elie Alex MD Position: [facility] Renal MD Member Role: Lifetime Consulting Physician Address: Address: [address] [place] [address], [address] [facility] [address] Name: Rayray Brand Position: [facility] Physician (General Medicine) Member Role: Primary Care Nurse Name: Liudmila Hinds Position: [facility] RN Member Role: Primary Care Nurse Name: Kannan Gibbs RN Position: [facility] RN Member Role: Primary Care Nurse Name: Chase Brumfield RN Position: [facility] ED RN W/OE and Tasks Member Role: Primary Care Nurse Name: Sissy Powers RN Position: [facility] RN Member Role: Primary Care Nurse Name: Link Stein RN Position: [facility] RN Supv Member Role: Primary Care Nurse Name: Isai Weaver DO Position: [facility] Renal MD Member Role: Lifetime Consulting Physician Address: Address: [address] [place] [address] [address] [facility] [place] [address]- Name: Lor Abdullahi RN Position: [facility] RN Member Role: Primary Care Nurse Name: Charity Billings RN Position: [facility] RN Member Role: Primary Care Nurse Name: Trae Hawkins III, RN Position: [facility] RN Member Role: Primary Care Nurse Name: Geoffrey Davis RN Position: [facility] RN Member Role: Primary Care Nurse Name: Yamini Soares Position: [facility] RN Member Role: Primary Care Nurse Name: Marcus Ardon RN Position: [facility] RN Member Role: Primary Care Nurse Name: Jaison Sherwood MD Position: [facility] Renal MD Member Role: Lifetime Consulting Physician Address: Address: [address] [place] [address] [address] [facility] [place] [address]- [place] Name: Anna White RN Position: [facility] AMB Nurse Member Role: Primary Care Nurse Name: Marleny Sanchez RN Position: [facility] RN Member Role: Primary Care Nurse Name: Gabriel Chappell MD Position: [facility] Renal MD Member Role: Lifetime Consulting Physician Address: Address: [address] [place] [address] [facility] [place] [address]- Name: Muirel Page RN Position: [facility] SN RN Member Role: Primary Care Nurse Name: Marielena Sheehan RN Position: [facility] RN Member Role: Primary Care Nurse Name: Nadia Hernandez RN Position: [facility] RN Member Role: Primary Care Nurse Name: Alyssa Nguyen RN Position: [facility] RN Member Role: Primary Care Nurse Name: Елена Jules RN Position: [facility] RN Member Role: Primary Care Nurse Name: Arleen Cooper MD Position: [facility] Primary Care Physician Member Role: PCP Address: Address: [address] [place] [address]- Care Team Related Persons Name: CAMI ELIAS Address: home [address] [place] [address] Name: HERMILO PANDA Address: [address] [address] Name: JACK PANDA Address: home [address] [place] [address]
--- OUTSIDE RECORDS SUMMARY | 2023-06-19 12:40 | XMS_ITS | Continuity of Care Document ---
Author Name Unknown Organization [facility] Address [address] [place] [address]- Care Team Providers Care Facepiece Line Supervisor Name Role Phone Arleen Cooper MD Primary Care Physician [place] [facility] [place](s): 06/04/22 - 07/04/22 [facility] [address] [place] [address]- Attending Physician: Enid Maharaj Admitting Physician: Enid [...] Note: vis Medications B-D PEN NDL SHRT [id number](02/10) COOPER B-D PEN NDL SHRT [id number](02/10) COOPER, See Instructions, # 100 each, 0 [...] Replace Required Details, Route to Pharmacy Electronically, [facility], 167, cm, 06/10/22 15:12:00 E... [...] 01/23/22 16:09:00 EDT, Route to Pharmacy Electronically, [facility] #[id number], Partial fill upon patient request if the prescription is for a jana... Start Date: 01/23/22 Status: Ordered insulin glargine (concentrated) 300 units/mL subcutaneous solution See Instructions, 18 units s/c at bedtime, # 12 mL, 2 Refills, Maintenance, 06/29/22 11:32:00 EDT, Solution, [facility] #[id number], Partial fill upon patient request if the prescription is for a schedule II opioid drug., 167, cm, 06/29/22 8:48:0... Start Date: 06/29/22 Status: Ordered insulin lispro (concentrated) 200 units/mL subcutaneous solution See Instructions, 3 units Subcutaneous Infusion for FSBS of every 100 and 1 unit additional for every 40 above 100, # 12 mL, 3 Refills, Maintenance, 06/29/22 14:22:00 EDT, [facility] #[id number], Partial fill upon patient request if the prescript... Start Date: 06/29/22 Status: Ordered levothyroxine 0.025 mg oral tablet 1.5 tablet, By Mouth, Daily, # 135 tablet, 0 Refills, [facility] #[id number], 167.64, cm, 01/23/22 11:51:00 EDT, Height, 63.7, kg, 01/30/21 22:32:00 EDT, Dry Weight Start Date: 03/27/22 Status: Ordered multivitamin Multiple Vitamins oral capsule 1 capsule, By Mouth, Daily, # 30 capsule, 0 Refills, Maintenance, 06/28/22 11:24:00 EDT, Capsule, [facility] #[id number], Partial fill upon patient request if the prescription is for a schedule II opioid drug., 1 capsule By Mouth Daily,x30 days,... Start Date: 06/28/22 Stop Date: 07/28/22 Status: Ordered mycophenolate mofetil 500 mg oral tablet = 1,500 mg, By Mouth, 2 times a day, # 180 tablet, 1 Refills, Maintenance, 06/28/22 11:24:00 EDT, Tablet, [facility] #[id number], Partial fill upon patient request if the prescription is for a schedule II opioid drug., 167, cm, 06/28/22 8:15:00 E... Start Date: 06/28/22 Stop Date: 08/27/22 Status: Ordered NIFEdipine 60 mg oral tablet, extended release 60 mg, 1, tablet, By Mouth, Daily, # 30 tablet, Refills 0, Tot. Refills 0, Maintenance, 06/28/22 11:25:00 EDT, Route to Pharmacy Electronically, [facility] #[id number], Partial fill upon patientrequest if the prescription [...] 06/28/22 Stop Date: 07/28/22 Status: Ordered Pen [place], 31 G x 5 mm BD Ultra [...] tablet, 0 Refills, Maintenance, 06/28/22 11:25:00 EDT, [facility] #[id number], Partial fill upon patient request if the [...] 0 Refills, Maintenance, 06/28/22 11:25:00 EDT, Tablet, [facility] #[id number], Partial fill upon patient request if the [...] 08/27/22 11:26:00 EST, 06/28/22 11:26:00 EDT, Tablet, [facility] #[id number],... Start Date: 06/28/22 Stop Date: 08/27/22 Status: Ordered tacrolimus 1 mg oral capsule, extended release = 6 mg, By Mouth, Daily in AM, # 30 capsule, 1 Refills, Maintenance, 06/28/22 11:23:00 EDT, ER Capsule, [facility] #[id number], Partial fill upon patient request if the prescription is for a schedule II opioid drug., 167, cm, 06/28/22 8:15:00 EDT... Start Date: 06/28/22 Stop Date: 08/27/22 Status: Ordered valganciclovir 450 mg oral tablet 450 mg, 1, tablet, By Mouth, Every Thursday, Thursday and Thursday, # 12 tablet, Refills 1, Tot. Refills 1, Maintenance, 06/28/22 11:26:00 EDT, Route to Pharmacy Electronically, [facility] #[id number], Partial fill upon patient request if the prescr... 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
--- OUTSIDE RECORDS SUMMARY | 2023-06-19 12:40 | XMS_ITS | Continuity of Care Document ---
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 Role Phone Arleen Cooper MD Primary Care Physician [phone] [place] [facility] [place] - 01/10/[address] [address]- Attending Physician: Enid Maharaj Admitting Physician: Enid [...] and Recorded Vaccine Date Status Refusal Reason [id number] 12y+ bivalent booster vax 1 07/17/22 Given [...] 11/25/22 Status: Ordered B-D PEN NDL MINI [id number](12/11)PRPL USE DIRECTED FOR TYPE 1 DIABETES Start Date: 11/25/22 Status: Ordered Baqsimi One Pack 3 mg nasal powder See Instructions, 3 mg Once In one nostril; dose does not need to be inhaled may repeat in 15 minutes alternate nostrils, # 1 each, 5 Refills, Soft Stop, 09/19/22 22:47:00 EST, [facility] #[id number], Partial fill upon patient request if the [...] tablet, 11 Refills, Maintenance, 10/17/22 12:12:00 EST, [facility] #[id number], 30, TAKE 1 TABLET BY MOUTH EVERY DAY, 168, cm, 09/19/22 14:56:00 EST, Height, 60.2, kg, 07/24/22 0:30:00 EDT, Dry Weight Start Date: 10/17/22 Status: Ordered FLUoxetine 20 mg oral capsule 1, capsule, By Mouth, Daily, # 30 capsule, Refills 11, Maintenance, 09/30/22 13:35:00 EST, Route toPharmacy Electronically, [facility] #[id number], 168, cm, 09/19/22 14:56:00 EST, Height, 60.2,kg, [...] 09/02/22 15:33:00 EST, Route to Pharmacy Electronically, [facility] #[id number], 168, cm, 07/30/22 15:53:00 EDT, Height, 60.2, kg, 07/24/22 0:30:00 EDT, Dry Weight Start Date: 09/02/22 Status: Ordered glucose 4 gm oral tablet, chewable 4 tablet = 16 Gm, Chew, Once, PRN as needed for low blood sugar, # 50 tablet, 0 Refills, Soft Stop,09/19/22 22:51:00 EST, Chew Tablet, [facility] #[id number], Partial fill upon patient request if the prescription is for a schedule II opioid drug... Start Date: 09/19/22 Status: Ordered Golytely - oral powder for reconstitution See Instructions, Drink 240mL every 15 minutes until gone, # 4,000 mL, 0 Refills, Maintenance, 12/03/22 9:00:00 EST, [facility] #[id number], Partial fill upon patient request if the prescriptionis for a schedule II opioid drug., Drink 240mL ever... Start Date: 12/03/22 Status: Ordered Lantus Solostar Pen 100 units/mL subcutaneous solution See Instructions, Please take 20 units at bedtime E11.8, # 45 mL, 3 Refills, Maintenance, 12/29/22 8:07:00 EDT, Injection, [facility] #[id number], Partial fill upon patient request if the prescription is for a schedule II opioid drug., 168, cm,... Start Date: 12/29/22 Status: Ordered levothyroxine 0.025 mg oral tablet 1.5 tablet, By Mouth, Daily, # 135 tablet, 0 Refills, [facility] #[id number], 167.64, cm, 01/23/22 11:51:00 EDT, Height, 63.7, [...] BG... Start Date: 12/27/22 Status: Ordered Pen [place], 31 G x 5 mm BD Ultra [...] 0 Refills, Maintenance, 06/28/22 11:25:00 EDT, Tablet, [facility] #[id number], Partial fill upon patient request if the [...] GIVEN HE IS ON ANTI REJECTION TREATMENT [facility] TRANSPLANT REJECTION Start Date: 11/25/22 Status: Ordered tacrolimus 1 mg oral tablet, extended release = 8 mg, By Mouth, Daily in AM, Please take tacrolimus 8 mg PO daily in AM and f/u with nephrologistfor level monitoring and dose adjustment., # 30 tablet, 0 Refills, Maintenance, 07/10/22 12:57:00 EDT, XR Tablet, [facility] #[id number], Partial... Start Date: 07/10/22 Stop Date: 08/09/22 Status: Ordered tamsulosin 0.4 mg oral capsule 0.4 mg, 1, capsule, By Mouth, Daily, # 30 capsule, Refills 0, Tot. Refills 0, Maintenance, 229:30:00 EDT, Route to Pharmacy Electronically, [facility] #[id number], Partial fill upon patient request if the prescription is for a schedule II... Start Date: 07/21/22 Status: Ordered Trulicity Pen 0.75 mg/0.5 mL subcutaneous solution 0.5 mL = 0.75 mg, Subcutaneous Injection, Every week, rotate injection sites, # 2 mL, 5 Refills, Maintenance, 12/26/22 17:06:00 EDT, Solution, [facility] #[id number], Partial fill upon patient request if the prescription is for a schedule II opio... Start Date: 12/26/22 Status: Ordered valganciclovir 450 mg oral tablet 450 mg, 1, tablet, By Mouth, Every Thursday, Thursday and Thursday, # 26 tablet, Refills 1, Tot. Refills 1, Maintenance, 06/28/22 11:26:00 EDT, Route to Pharmacy Electronically, [facility] #[id number], Partial fill upon patient request if the [...] BHN Care Management [facility], Vernell Fabian [phone] Confirmed Active Subclinical hypothyroidism Confirmed Active 1Weighed 1.5 pounds at . 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 Social History Social History Type Response Smoking Status Never smoker; Tobacc o user in household: No entered on: 09/12/15 Sex Hospital Consult note * Event Display: Inpatient Consult Note, Non-BH Authored Date: Note * Event Display: Non BH Lab Results Authored Date: * Event Display: Non BH Lab Results Authored Date: * Event Display: Laboratory Result Scanned Authored Date: Patient Care team information Care Team Personnel Name: Desmond Anton RN Position: [facility] RN Member Role: Primary Care Nurse Name: Eliza Ch RN Position: [facility] RN Member Role: Primary Care Nurse Name: Izzy Cooper Position: [facility] RN Member Role: Primary Care Nurse Name: Elie Alex MD Position: [facility] Renal MD Member Role: Lifetime Consulting Physician Address: Address: [address] [place] [address], [address] [facility] [place] [address]- Name: Rayray Brand Position: [facility] Physician (General Medicine) Member Role: Primary Care Nurse Name: Liudmila Hinds Position: [facility] RN Member Role: Primary Care Nurse Name: Kannan Gibbs RN Position: [facility] RN Member Role: Primary Care Nurse Name: Chase Brumfield RN Position: [facility] ED RN W/OE and Tasks Member Role: Primary Care Nurse Name: Link Stein RN Position: [facility] RN Supv Member Role: Primary Care Nurse Name: Isai Weaver DO Position: [facility] Renal MD Member Role: Lifetime Consulting Physician Address: Address: [address] [place], [place] [address] [place] [address]- Name: Lor Abdullahi RN Position: [facility] RN Member Role: Primary Care Nurse Name: Charity Billings RN Position: [facility] RN Member Role: Primary Care Nurse Name: Trae Hawkins III, RN Position: [facility] RN Member Role: Primary Care Nurse Name: Yamini Soares Position: [facility] RN Member Role: Primary Care Nurse Name: Marcus Ardon RN Position: [facility] RN Member Role: Primary Care Nurse Name: Jaison Sherwood MD Position: [facility] Renal MD Member Role: Lifetime Consulting Physician Address: Address: [address] [place] [address] [address] [facility] [place] [address]- Name: Anna White RN Position: [facility] AMB Nurse Member Role: Primary Care Nurse Name: Marleny Sanchez RN Position: [facility] RN Member Role: Primary Care Nurse Name: Gabriel Chappell MD Position: [facility] Renal MD Member Role: Lifetime Consulting Physician Address: Address: [address] [place] [address] [facility] [place] [address]- Name: Muriel Page RN Position: [facility] SN RN Member Role: Primary Care Nurse Name: Marielena Sheehan RN Position: [facility] RN Member Role: Primary Care Nurse Name: Nadia Hernandez RN Position: [facility] RN Member Role: Primary Care Nurse Name: Alyssa Nguyen RN Position: [facility] RN Member Role: Primary Care Nurse Name: Елена Jules RN Position: [facility] RN Member Role: Primary Care Nurse Name: Arleen Cooper MD Position: [facility] Primary Care Physician Member Role: PCP Address: Address: [address] [place] [address]- Care Team Related Persons Name: CAMI ELIAS Address: home [address] [place] [address] Name: HERMILO PANDA Address: home [address] [address] Name: JACK PANDA Address: home [address] [place] [address]
--- OUTSIDE RECORDS SUMMARY | 2023-06-19 12:40 | XMS_ITS | Continuity of Care Document ---
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 Start Date: 02/18/21 Stop Date: 08/17/21 Status: Ordered B-D PEN NDL SHRT [id number](02/10) COOPER B-D PEN NDL SHRT [id number](02/10) COOPER, See Instructions, # 100 each, 0 [...] 07/18/20 11:05:00 EDT, Route to Pharmacy Electronically, [facility], 167.64, cm, 07/12/20 8:38:00 EDT, Height, 70, kg, 04/11/20 15:19:00... Start Date: 07/18/20 Stop Date: 08/17/20 Status: Ordered Envarsus XR 1 mg oral tablet, extended release 4 tablet = 4 mg, By Mouth, Daily in AM, # 240 tablet, 0 Refills, Maintenance, 04/12/20 12:33:00 EDT, [facility], 167.64, cm, 04/12/20 4:21:00 [...] 01/23/22 16:09:00 EDT, Route to Pharmacy Electronically, [facility] #[id number], Partial fill upon patient request if the prescription is for a jana... Start Date: 01/23/22 Status: Ordered Kayexcelate Powder Kayexcelate Powder, 30 grams, By Mouth, Daily, # 454 Gm, Refills 1, Tot. 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 Start Date: 04/19/20 Stop Date: 06/18/20 Status: Ordered Lantus Solostar Pen 100 units/mL subcutaneous solution = 35 units, Subcutaneous Injection, Daily at bedtime, # 12 mL, 11 Refills, Maintenance, 01/18/22 14:50:00 EDT, [facility] #[id number], 167.64, cm, 01/09/22 13:27:00 EDT, Height, 63.7, kg, 01/30/21 22:32:00 EDT, Dry Weight Start Date: 01/18/22 Status: Ordered levothyroxine 0.025 mg oral tablet 1.5 tablet, By Mouth, Daily, # 45 tablet, 0 Refills, [facility] #[id number], 167.64, cm, 01/23/22 11:51:00 EDT, Height, 63.7, kg, 01/30/21 22:32:00 EDT, Dry Weight Start Date: 03/19/22 Status: Ordered Pen [place], 31 G x 5 mm BD Ultra [...] pack/packet, 1 Refills, Maintenance, 06/21/20 16:51:00 EDT, [facility], Deliver to pt in [...] (obstructive sleep apnea)(Confirmed) Active N Care Management [facility] , Vernell Rui [phone](Confirmed) Active Subclinical hypothyroidism(Confirmed) Active 1Weighed 1.5 pounds at . 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
--- OUTSIDE RECORDS SUMMARY | 2023-06-19 12:40 | XMS_ITS | Continuity of Care Document ---
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 Role Phone Arleen Cooper MD Primary Care Physician [phone] Encounter [facility] Date(s): 01/08/23 - 01/08/[address] [address]- Discharge Disposition: A-D/C Home Attending Physician: Car Treviño MD Admitting Physician: Car Treviño MD Referring Physician: Not on Staff, Referring MD Allergies, Adverse Reactions, Alerts Substance Reaction Severity Status ibuprofen decreased kidney function Ac tive aspirin decresed kidney function Act nina Toradol 1 decreased kidney function Ac tive Robaxin itching Active Valium difficulty breathing Active Vicodin itching Active 1Pt states he is not allergic to this medication Immunizations Given and Recorded Vaccine Date Status Refusal Reason [id number] 12y+ bivalent booster vax 1 07/17/22 Given [...] 11/25/22 Status: Ordered B-D PEN NDL MINI [id number](12/11)PRPL USE DIRECTED FOR TYPE 1 DIABETES Start Date: 11/25/22 Status: Ordered Baqsimi One Pack 3 mg nasal powder See Instructions, 3 mg Once In one nostril; dose does not need to be inhaled may repeat in 15 minutes alternate nostrils, # 1 each, 5 Refills, Soft Stop, 09/19/22 22:47:00 EST, [facility] #[id number], Partial fill upon patient request if the [...] tablet, 11 Refills, Maintenance, 10/17/22 12:12:00 EST, [facility] #[id number], 30, TAKE 1 TABLET BY MOUTH EVERY DAY, 168, cm, 09/19/22 14:56:00 EST, Height, 60.2, kg, 07/24/22 0:30:00 EDT, Dry Weight Start Date: 10/17/22 Status: Ordered FLUoxetine 20 mg oral capsule 1, capsule, By Mouth, Daily, # 30 capsule, Refills 11, Maintenance, 09/30/22 13:35:00 EST, Route toPharmacy Electronically, [facility] #[id number], 168, cm, 09/19/22 14:56:00 EST, Height, 60.2,kg, [...] 09/02/22 15:33:00 EST, Route to Pharmacy Electronically, [email or web address] #[id number], 168, cm, 07/30/22 15:53:00 EDT, Height, 60.2, kg, 07/24/22 0:30:00 EDT, Dry Weight Start Date: 09/02/22 Status: Ordered glucose 4 gm oral tablet, chewable 4 tablet = 16 Gm, Chew, Once, PRN as needed for low blood sugar, # 50 tablet, 0 Refills, Soft Stop,09/19/22 22:51:00 EST, Chew Tablet, [facility] #[id number], Partial fill upon patient request if the prescription is for a schedule II opioid drug... Start Date: 09/19/22 Status: Ordered Golytely - oral powder for reconstitution See Instructions, Drink 240mL every 15 minutes until gone, # 4,000 mL, 0 Refills, Maintenance, 12/03/22 9:00:00 EST, [facility] #[id number], Partial fill upon patient request if the prescriptionis for a schedule II opioid drug., Drink 240mL ever... Start Date: 12/03/22 Status: Ordered Lantus Solostar Pen 100 units/mL subcutaneous solution See Instructions, Please take 20 units at bedtime E11.8, # 45 mL, 3 Refills, Maintenance, 12/29/22 8:07:00 EDT, Injection, [facility] #[id number], Partial fill upon patient request if the prescription is for a schedule II opioid drug., 168, cm,... Start Date: 12/29/22 Status: Ordered levothyroxine 0.025 mg oral tablet 1.5 tablet, By Mouth, Daily, # 135 tablet, 0 Refills, [facility] #[id number], 167.64, cm, 01/23/22 11:51:00 EDT, Height, 63.7, [...] BG... Start Date: 12/27/22 Status: Ordered Pen [place], 31 G x 5 mm BD Ultra [...] 0 Refills, Maintenance, 06/28/22 11:25:00 EDT, Tablet, [email or web address] #[id number], Partial fill upon patient request if the [...] GIVEN HE IS ON ANTI REJECTION TREATMENT [facility] TRANS[facility]ANT REJECTION Start Date: 11/25/22 Status: Ordered tacrolimus 1 mg oral tablet, extended release = 8 mg, By Mouth, Daily in AM, Please take tacrolimus 8 mg PO daily in AM and f/u with nephrologistfor level monitoring and dose adjustment., # 30 tablet, 0 Refills, Maintenance, 07/10/22 12:57:00 EDT, XR Tablet, [email or web address] #[id number], Partial... Start Date: 07/10/22 Stop Date: 08/09/22 Status: Ordered tamsulosin 0.4 mg oral capsule 0.4 mg, 1, capsule, By Mouth, Daily, # 30 capsule, Refills 0, Tot. Refills 0, Maintenance, 229:30:00 EDT, Route to Pharmacy Electronically, [facility] #[id number], Partial fill upon patient request if the prescription is for a schedule II... Start Date: 07/21/22 Status: Ordered Trulicity Pen 0.75 mg/0.5 mL subcutaneous solution 0.5 mL = 0.75 mg, Subcutaneous Injection, Every week, rotate injection sites, # 2 mL, 5 Refills, Maintenance, 12/26/22 17:06:00 EDT, Solution, [facility] #[id number], Partial fill upon patient request if the prescription is for a schedule II opio... Start Date: 12/26/22 Status: Ordered valganciclovir 450 mg oral tablet 450 mg, 1, tablet, By Mouth, Every Thursday, Thursday and Thursday, # 26 tablet, Refills 1, Tot. Refills 1, Maintenance, 06/28/22 11:26:00 EDT, Route to Pharmacy Electronically, [facility] #[id number], Partial fill upon patient request if the [...] sleep apnea) Confirmed Active N Care Management [facility], Vernell Rui [phone] Confirmed Active Subclinical hypothyroidism Confirmed Active 1Weighed 1.5 pounds at . 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..] Care Nurse Name: Elie Alex MD Position: [facility] Renal MD Member Role: Lifetime Consulting Physician Address: Address: [address] [place] [address], [address] [facility] [place] [address]- Name: Rayray Brand Position: [facility] Physician (General Medicine) Member Role: Primary Care Nurse Name: Liudmila Hinds Position: [facility] RN Member Role: Primary Care Nurse Name: Kannan Gibbs RN Position: [facility] RN Member Role: Primary Care Nurse Name: Chase Brumfield RN Position: [facility] ED RN W/OE and Tasks Member Role: Primary Care Nurse Name: Link Stein RN Position: [facility] RN Supv Member Role: Primary Care Nurse Name: Isai Weaver DO Position: [facility] Renal MD Member Role: Lifetime Consulting Physician Address: Address: [address] [place], [place] [address] [place] [address]- Name: Lor Abdullahi RN Position: [facility] RN Member Role: Primary Care Nurse Name: Charity Billings RN Position: S RN Member Role: Primary Care Nurse Name: Trae Hawkins III, RN Position: S RN Member Role: Primary Care Nurse Name: Yamini Soares Position: S RN Member Role: Primary Care Nurse Name: Marcus Ardon RN Position: S RN Member Role: Primary Care Nurse Name: Jaison Sherwood MD Position: [facility] Renal MD Member Role: Lifetime Consulting Physician Address: Address: [address] [facility] [address] [facility] [place] [address]- [place] Name: Anna White RN Position: [facility] AMB Nurse Member Role: Primary Care Nurse Name: Marleny Sanchez RN Position: [facility] RN Member Role: Primary Care Nurse Name: Gabriel Chappell MD Position: [facility] Renal MD Member Role: Lifetime Consulting Physician Address: Address: [address] [facility] [place] [address]- Name: Muriel Page RN Position: [facility] SN RN Member Role: Primary Care Nurse Name: Marielena Sheehan RN Position: [facility] RN Member Role: Primary Care Nurse Name: Nadia Hernandez RN Position: [facility] RN Member Role: Primary Care Nurse Name: Alyssa Nguyen RN Position: [facility] RN Member Role: Primary Care Nurse Name: Елена Jules RN Position: [facility] RN Member Role: Primary Care Nurse Name: Arleen Cooper MD Position: [facility] Primary Care Physician Member Role: PCP Address: Address: [address] [place] [address]- Care Team Related Persons Name: CAMI ELIAS Address: home [address] [place] [address] Name: HERMILO PANDA Address: [address] [address] Name: JACK PANDA Address: home [address] [place] [address]
--- OUTSIDE RECORDS SUMMARY | 2023-06-19 12:40 | XMS_ITS | Continuity of Care Document ---
Author Name Unknown Organization [facility] Address [address] [place] [address]- Care Team Providers Care Senior Tax Specialist Name Role Phone Kenneth CLARKE, Arleen Primary Care Physician [place] [facility] [place] 09/18/22 - 10/18/[address] [address]- Allergies, Adverse Reactions, Alerts Substance Reaction Severity Status ibuprofen decreased kidney function Ac tive aspirin decresed kidney function Act nina Toradol 1 decreased kidney function Ac tive Robaxin itching Active Valium difficulty breathing Active Vicodin itching Active 1Pt states he is not allergic to this medication Immunizations Given and Recorded Vaccine Date Status Refusal Reason [id number] 12y+ bivalent booster vax 1 07/17/22 Given [...] Note: vis Medications B-D PEN NDL SHRT [id number](02/10) COOPER B-D PEN NDL SHRT [id number](02/10) COOPER, See Instructions, # 100 each, 0 [...] each, 5 Refills, Soft Stop, 09/19/22 22:47:00 [facility] #[id number], Partial fill upon patient request if the [...] tablet, 11 Refills, Maintenance, 10/17/22 12:12:00 EST, [facility] #[id number], 30, TAKE 1 TABLET BY MOUTH EVERY DAY, 168, cm, 09/19/22 14:56:00 EST, Height, 60.2, kg, 07/24/22 0:30:00 EDT, Dry Weight Start Date: 10/17/22 Status: Ordered FLUoxetine 20 mg oral capsule 1, capsule, By Mouth, Daily, # 30 capsule, Refills 11, Maintenance, 09/30/22 13:35:00 EST, Route toPharmacy Electronically, [facility] #[id number], 168, cm, 09/19/22 14:56:00 EST, Height, 60.2,kg, 07/24/22 0:30:00 EDT, Dry Weight Start Date: 09/30/22 Status: Ordered free style sagar reader free style saagr reader, See Instructions, # 1 each, Refills [...] 09/02/22 15:33:00 EST, Route to Pharmacy Electronically, [facility] #[id number], 168, cm, 07/30/22 15:53:00 EDT, Height, 60.2, kg, 07/24/22 0:30:00 EDT, Dry Weight Start Date: 09/02/22 Status: Ordered glucose 4 gm oral tablet, chewable 4 tablet = 16 Gm, Chew, Once, PRN as needed for low blood sugar, # 50 tablet, 0 Refills, Soft Stop,09/19/22 22:51:00 EST, Chew Tablet, [facility] #[id number], Partial fill upon patient request if the prescription is for a schedule II opioid drug... Start Date: 09/19/22 Status: Ordered insulin glargine (concentrated) 300 units/mL subcutaneous solution See Instructions, 25 units s/c in the AM at the same time every day rotate injection sites, # 12 mL, 2 Refills, Maintenance, 06/29/22 11:32:00 EDT, Solution, [facility] #[id number], Partial fillupon patient request if the prescription is... Start Date: 06/29/22 Status: Ordered insulin lispro (concentrated) 200 units/mL subcutaneous solution See Instructions, 3 units Subcutaneous Infusion for FSBS of every 100 and 1 unit additional for every 40 above 100, # 12 mL, 3 Refills, Maintenance, 06/29/22 14:22:00 EDT, [facility] #[id number], Partial fill upon patient request if the prescript... Start Date: 06/29/22 Status: Ordered levothyroxine 0.025 mg oral tablet 1.5 tablet, By Mouth, Daily, # 135 tablet, 0 Refills, [facility] #[id number], 167.64, cm, 01/23/22 11:51:00 EDT, Height, 63.7, kg, 01/30/21 22:32:00 EDT, Dry Weight Start Date: 03/27/22 Status: Ordered Pen [place], 31 G x 5 mm BD Ultra [...] 0 Refills, Maintenance, 06/28/22 11:25:00 EDT, Tablet, [facility] #[id number], Partial fill upon patient request if the [...] Refills, Maintenance, 07/10/22 12:57:00 EDT, XR Tablet, [facility] #[id number], Partial... Start Date: 07/10/22 Stop Date: 08/09/22 Status: Ordered tamsulosin 0.4 mg oral capsule 0.4 mg, 1, capsule, By Mouth, Daily, # 30 capsule, Refills 0, Tot. Refills 0, Maintenance, :30:00 EDT, Route to Pharmacy Electronically, [facility] #[id number], Partial fill upon patient request if the prescription is for a schedule II... Start Date: 07/21/22 Status: Ordered valganciclovir 450 mg oral tablet 450 mg, 1, tablet, By Mouth, Every Thursday, Thursday and Thursday, # 26 tablet, Refills 1, Tot. Refills 1, Maintenance, 06/28/22 11:26:00 EDT, Route to Pharmacy Electronically, [facility] #[id number], Partial fill upon patient request if the [...] Active ADAM (obstructive sleep apnea) Confirmed Active [facility] Care Management Addy Liriano, Vernell Fabian [phone] Confirmed Active Subclinical hypothyroidism Confirmed Active 1Weighed 1.5 pounds at . 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 Social History Social History Type Response Smoking Status Never smoker; Tobacc o user in household: No entered on: 09/12/15 Sex Patient Care team information Care Team Personnel Name: Desmond Anton RN Position: [facility] RN Member Role: Primary Care Nurse Name: Eliza Ch RN Position: [facility] RN Member Role: Primary Care Nurse Name: Izzy Cooper Position: [facility] RN Member Role: Primary Care Nurse Name: Elie Alex MD Position: [facility] Renal MD Member Role: Lifetime Consulting Physician Address: Address: [address] [place] [address], [address] [facility] [place] [address]- Name: Rayrya Brand Position: [facility] Physician (General Medicine) Member Role: Primary Care Nurse Name: Liudmila Hinds Position: [facility] RN Member Role: Primary Care Nurse Name: Kannan Gibbs RN Position: [facility] RN Member Role: Primary Care Nurse Name: Chase Brumfield RN Position: [facility] ED RN W/OE and Tasks Member Role: Primary Care Nurse Name: Sissy Powers RN Position: [facility] RN Member Role: Primary Care Nurse Name: Link Stein RN Position: [facility] RN Supv Member Role: Primary Care Nurse Name: Isai Weaver DO Position: [facility] Renal MD Member Role: Lifetime Consulting Physician Address: Address: [address] [place] [address] [address] [facility] [place] [address]- Name: Lor Abdullahi RN Position: [facility] RN Member Role: Primary Care Nurse Name: Charity Billings RN Position: [facility] RN Member Role: Primary Care Nurse Name: Trae Hawkins III, RN Position: [facility] RN Member Role: Primary Care Nurse Name: Geoffrey Davis RN Position: [facility] RN Member Role: Primary Care Nurse Name: Yamini Soares Position: [facility] RN Member Role: Primary Care Nurse Name: Marcus Ardon RN Position: [facility] RN Member Role: Primary Care Nurse Name: Jaison Sherwood MD Position: [facility] Renal MD Member Role: Lifetime Consulting Physician Address: Address: [address] [place] [address] [address] [facility] [place] [address]- Name: Anna White RN Position: [facility] AMB Nurse Member Role: Primary Care Nurse Name: Marleny Sanchez RN Position: [facility] RN Member Role: Primary Care Nurse Name: Gabriel Chappell MD Position: [facility] Renal MD Member Role: Lifetime Consulting Physician Address: Address: [address] [place] [address] [facility] [place] [address]- Name: Muriel Page RN Position: [facility] SN RN Member Role: Primary Care Nurse Name: Marielena Sheehan RN Position: [facility] RN Member Role: Primary Care Nurse Name: Nadia Hernandez RN Position: [facility] RN Member Role: Primary Care Nurse Name: Alyssa Nguyen RN Position: [facility] RN Member Role: Primary Care Nurse Name: Елена Jules RN Position: [facility] RN Member Role: Primary Care Nurse Name: Arleen Cooper MD Position: [facility] Primary Care Physician Member Role: PCP Address: Address: [address] [place] [address]- Care Team Related Persons Name: CAMI ELIAS Address: [address] [place] [address] Name: HERMILO PANDA Address: [address] [address] Name: JACK PANDA Address: home [address] [place] [address]
--- OUTSIDE RECORDS SUMMARY | 2023-06-19 12:40 | XMS_ITS | Continuity of Care Document ---
Author Name Unknown Organization [facility] Address [address] [place] [address]- Care Team Providers Care Comic Writer Name Role Phone Arleen Cooper MD Primary Care Physician [phone] [place] [facility] Date(s): 05/10/20 - 06/09/[address] [address]- [facility] Allergies, Adverse Reactions, Alerts Substance [...] 09/30/20 9:23:00 EST, 04/30/20 9:21:00 EDT, Tablet, [facility], 1 tablet By Mouth [...] 05/28/20 14:45:00 EDT, Route to Pharmacy Electronically, [facility], 167.64, cm, 05/28/20 8:49:00 EDT, Height, 70, kg, 04/11/20 15:19:00... Start Date: 05/28/20 Stop Date: 07/27/20 Status: Ordered clotrimazole 10 mg oral lozenge 10 mg, 1, lozenge, By Mouth, 3 times a day, # 90 lozenge, Refills 1, Tot. Refills 1, Acute 209:23:00 EDT, 04/30/20 9:22:00 EDT, Route to Pharmacy Electronically, [facility], 167.64, cm, 04/30/20 8:23:00 EDT, Height, 70, kg, 07/... Start Date: 04/30/20 Stop Date: 06/30/20 Status: Ordered docusate sodium 100 mg oral capsule 100 mg, 1, capsule, By Mouth, 3 times a day, PRN, # 90 capsule, Refills 0, Tot. Refills 0, Maintenance, for constipation, 04/12/20 12:34:00 EDT, Route to Pharmacy Electronically, [facility], 167.64, cm, 04/12/20 4:21:00 EDT, Height, 7... Start Date: 04/12/20 Status: Ordered Envarsus XR 1 mg oral tablet, extended release 8 tablet = 8 mg, By Mouth, Daily in AM, # 240 tablet, 11 Refills, Maintenance, 04/30/20 9:22:00 EDT, [facility], 167.64, cm, 04/30/20 8:23:00 EDT, Height, 70, kg, 04/11/20 15:19:00 EDT, Dry Weight Start Date: 04/30/20 Status: Ordered Envarsus XR 1 mg oral tablet, extended release 8 tablet = 8 mg, By Mouth, Daily in AM, # 240 tablet, 0 Refills, Maintenance, 04/12/20 12:33:00 EDT, [facility], 167.64, cm, 04/12/20 4:21:00 EDT, Height, [...] mL, 11 Refills, Maintenance, 04/17/20 16:49:00 EDT, [facility] #[id number], 167.64, cm, 04/16/20 8:56:00 EDT, Height, 70, kg, 04/11/20 15:19:00 EDT, Dry Weight Start Date: 04/17/20 Status: Ordered levothyroxine 0.025 mg oral tablet 1.5 tablet = 37.5 mcg, By Mouth, Daily, # 45 tablet, 11 Refills, Maintenance, 04/18/20 17:51:00 EDT, Tablet, [facility] #[id number], 167.64, cm, 04/16/20 8:56:00 EDT, Height, 70, kg, 04/11/20 15:19:00 EDT, Dry Weight Start Date: 04/18/20 Status: Ordered NIFEdipine 60 mg oral tablet, extended release 60 mg, 1, tablet, By Mouth, Daily, # 30 tablet, Refills 0, Tot. Refills 0, Maintenance, 04/14/20 16:03:00 EDT, Route to Pharmacy Electronically, [facility], 167.64, cm, 04/14/20 15:37:00 EDT, Height, 70, kg, 04/11/20 15:19:00 EDT, Dry We... Start Date: 04/14/20 Status: Ordered Pen [place], 31 G x 5 mm BD Ultra [...] 04/30/20 9:22:00 EDT, Route to Pharmacy Electronically, [facility], 167.64, cm, 04/30/20 8:23:00 EDT, Height, 70, kg, 04/11/20 15:... Start Date: 04/30/20 Stop Date: 09/30/20 Status: Ordered Veltassa 16.8 g oral powder for reconstitution = 16.8 Gm, By Mouth, Daily, # 30 each, 1 Refills, Maintenance, 05/29/20 17:17:00 EDT, [facility], Deliver to pt in clinic 05/31/20, 167.64, cm, 05/28/20 8:49:00 EDT, Height, 70, kg, 04/11/20 15:19:00 EDT, Dry Weight Start Date: 05/29/20 Stop Date: 07/28/20 Status: Ordered Problem List Condition Effective Dates Status Health Status Inform ant ESRD on hemodialysis(Confirmed) Active Diabetes mellitus(Confirmed) Active Hearing loss(Confirmed) 1 Active HTN (hypertension)(Confirmed) Active ADAM (obstructive sleep apnea)(Confirmed) Active Care Management [facility] Sarah (Confirmed) Active Subclinical hypothyroidism(Confirmed) Active 1Weighed 1.5 pounds at . 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
--- OUTSIDE RECORDS SUMMARY | 2023-06-19 12:40 | XMS_ITS | Continuity of Care Document ---
Author Name Unknown Organization [facility] Address [address] [place] [address]- Care Team Providers Care Mobile Sales Assistant Name Role Phone Arleen Cooper MD Primary Care Physician Encounter [facility] Date(s): 02/04/21 - 03/06/[address] [address] Allergies, Adverse Reactions, Alerts Substance Reaction [...] 02/18/21 16:31:00 EDT, Route to Pharmacy Electronically, [facility] #[id number], Partial fill upon patientrequest if the prescription [...] 11:05:00 EDT, Route to Pharmacy Electronically, [facility], 167.64, cm, 07/12/20 8:38:00 EDT, Height, 70, kg, 04/11/20 15:19:00... Start Date: 07/18/20 Stop Date: 08/17/20 Status: Ordered Envarsus XR 1 mg oral tablet, extended release 4 tablet = 4 mg, By Mouth, Daily in AM, # 240 tablet, 0 Refills, Maintenance, 04/12/20 12:33:00 EDT, [facility], 167.64, cm, 04/12/20 4:21:00 EDT, [...] tomorrow, 04/19/20 15:08:00 EDT, Pt to picker / packer 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 Start Date: 04/19/20 Stop Date: 06/18/20 Status: Ordered Lantus Solostar Pen 100 units/mL subcutaneous solution = 30 units, Subcutaneous Injection, Daily at bedtime, # 10 mL, 11 Refills, Maintenance, 04/17/20 16:49:00 EDT, [facility] #[id number], 167.64, cm, 04/16/20 8:56:00 EDT, Height, 70, kg, 04/11/20 15:19:00 EDT, Dry Weight Start Date: 04/17/20 Status: Ordered levothyroxine 0.025 mg oral tablet 1.5 tablet = 37.5 mcg, By Mouth, Daily, # 45 tablet, 11 Refills, Maintenance, 04/18/20 17:51:00 EDT, Tablet, [facility] #[id number], 167.64, cm, 04/16/20 8:56:00 EDT, Height, 70, kg, 04/11/20 15:19:00 EDT, Dry Weight Start Date: 04/18/20 Status: Ordered Pen [place], 31 G x 5 mm BD Ultra [...] pack/packet, 1 Refills, Maintenance, 06/21/20 16:51:00 EDT, [facility], Deliver to pt in clinic [...]
--- OUTSIDE RECORDS SUMMARY | 2023-06-19 12:40 | XMS_ITS | Continuity of Care Document ---
Author Name Unknown Organization [facility] ter Address [address] [place] [id number]- Care Team Providers Care Scales Inspector Name Role Phone Arleen Cooper MD Primary Care Physician Encounter [facility] [place] Date(s): 06/09/22 - 06/29/[address] [id number] Discharge Disposition: A-D/C Home Attending Physician: Merrick Bernabe MD Admitting Physician: Lilly Dutta MD Referring Physician: Lilly Dutta MD Allergies, Adverse Reactions, Alerts Substance Reaction [...] Note: vis Medications B-D PEN NDL SHRT [id number](02/10) COOPER B-D PEN NDL SHRT [id number](02/10) COOPER, See Instructions, # 100 each, 0 [...] Replace Required Details, Route to Pharmacy Electronically, [facility], 167, cm, 06/10/22 15:12:00 E... Start Date: 06/10/22 Status: Ordered carvedilol 12.5 mg oral tablet 12.5 mg, Tablet, By Mouth, 06/29/22 21:00:00 EDT Start Date: 06/29/22 Stop Date: 06/29/22 Status: Completed FREESTYLE LITE BLOOD GLUCOSE STRIPS FREESTYLE LITE [...] gabapentin 300 mg oral capsule 300 mg, Capsule, By Mouth, 06/29/22 15:00:00 EDT Start Date: 06/29/22 Stop Date: 06/29/22 Status: Completed gabapentin 300 mg oral capsule 300 mg, Capsule, By Mouth, 06/29/22 21:00:00 EDT Start Date: 06/29/22 Stop Date: 06/29/22 Status: Completed gabapentin 300 mg oral capsule 300 mg, 1, capsule, By Mouth, 3 times a day, # 90 capsule, Refills 0, Tot. Refills 0, Maintenance, 01/23/22 16:09:00 EDT, Route to Pharmacy Electronically, [facility] #[id number], Partial fill upon patient request if the prescription is for a jana... Start Date: 01/23/22 Status: Ordered insulin glargine (concentrated) 300 units/mL subcutaneous solution See Instructions, 18 units s/c at bedtime, # 12 mL, 2 Refills, Maintenance, 06/29/22 11:32:00 EDT, Solution, [facility] #[id number], Partial fill upon patient request if the prescription is for a schedule II opioid drug., 167, cm, 06/29/22 8:48:0... Start Date: 06/29/22 Status: Ordered insulin lispro (concentrated) 200 units/mL subcutaneous solution See Instructions, 3 units Subcutaneous Infusion for FSBS of every 100 and 1 unit additional for every 40 above 100, # 12 mL, 3 Refills, Maintenance, 06/29/22 14:22:00 EDT, [facility] #[id number], Partial fill upon patient request if the prescript... Start Date: 06/29/22 Status: Ordered levothyroxine 0.025 mg oral tablet 1.5 tablet, By Mouth, Daily, # 135 tablet, 0 Refills, [facility] #[id number], 167.64, cm, 01/23/22 11:51:00 EDT, Height, 63.7, kg, 01/30/21 22:32:00 EDT, Dry Weight Start Date: 03/27/22 Status: Ordered multivitamin Multiple Vitamins oral capsule 1 capsule, By Mouth, Daily, # 30 capsule, 0 Refills, Maintenance, 06/28/22 11:24:00 EDT, Capsule, [facility] #[id number], Partial fill upon patient request if the prescription is for a schedule II opioid drug., 1 capsule By Mouth Daily,x30 days,... Start Date: 06/28/22 Stop Date: 07/28/22 Status: Ordered mycophenolate mofetil 500 mg oral tablet = 1,500 mg, By Mouth, 2 times a day, # 180 tablet, 1 Refills, Maintenance, 06/28/22 11:24:00 EDT, Tablet, [facility] #[id number], Partial fill upon patient request if the prescription is for a schedule II opioid drug., 167, cm, 06/28/22 8:15:00 E... Start Date: 06/28/22 Stop Date: 08/27/22 Status: Ordered NIFEdipine 60 mg oral tablet, extended release 60 mg, 1, tablet, By Mouth, Daily, # 30 tablet, Refills 0, Tot. Refills 0, Maintenance, 06/28/22 11:25:00 EDT, Route to Pharmacy Electronically, [facility] #[id number], Partial fill upon patientrequest if the prescription [...] 06/28/22 Stop Date: 07/28/22 Status: Ordered Pen Baggs, 31 G x 5 mm BD Ultra [...] 0 Refills, Maintenance, 06/28/22 11:25:00 EDT, Tablet, [facility] #[id number], Partial fill upon patient request if the [...] 0 Refills, Maintenance, 06/28/22 11:25:00 EDT, Tablet, [facility] #[id number], Partial fill upon patient request if the [...] 08/27/22 11:26:00 EST, 06/28/22 11:26:00 EDT, Tablet, [facility] #[id number],... Start Date: 06/28/22 Stop Date: 08/27/22 Status: Ordered tacrolimus 1 mg oral capsule, extended release = 6 mg, By Mouth, Daily in AM, # 30 capsule, 1 Refills, Maintenance, 06/28/22 11:23:00 EDT, ER Capsule, [facility] #[id number], Partial fill upon patient request if the prescription is for a schedule II opioid drug., 167, cm, 06/28/22 8:15:00 EDT... Start Date: 06/28/22 Stop Date: 08/27/22 Status: Ordered valganciclovir 450 mg oral tablet 450 mg, 1, tablet, By Mouth, Every Thursday, Thursday and Thursday, # 12 tablet, Refills 1, Tot. Refills 1, Maintenance, 06/28/22 11:26:00 EDT, Route to Pharmacy Electronically, [facility] #[id number], Partial fill upon patient request if the prescr... Start Date: 06/28/22 Status: Ordered Problem List Condition Confirmation Course Effective Dates Status H ealth Status Informant Diabetes mellitus Confirmed Active Hearing loss 1 Confirmed Active -donor kidney transplant recipient 2 Confirmed 04/11/20 Active Hyperkalemia Confirmed Active HTN (hypertension) Confirmed Active Lower back pain Confirmed Active ADAM (obstructive sleep apnea) Confirmed Active N Care Management [facility] Vernell Liriano [phone] Confirmed Active Subclinical hypothyroidism Confirmed Active 1Weighed 1.5 pounds at . 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 Results Orders for Microbiology Reports Name Date Urine Culture 06/13/22 Blood Culture 06/09/22 Blood Culture #2 06/09/22 Microbiology Reports TEST:Urine Culture STATUS:Auth (Verified) BODY SITE: SOURCE:URINE COLLECTED DATE/TIME:06/13/22 3:25 PM Urine Culture SPECIMEN DESCRIPTION : URINE CLEAN CATCH/MIDSTREAM SPECIAL REQUESTS : NONE CULTURE : NO GROWTH REPORT STATUS : FINAL 06/14/2022 TEST:Blood Culture STATUS:Auth (Verified) BODY SITE: SOURCE:Blood COLLECTED DATE/TIME:06/09/22 7:19 PM Blood Culture SPECIMEN DESCRIPTION : BLOOD RIGHT HAND SPECIAL REQUESTS : NONE CULTURE : NO GROWTH 5 DAYS. REPORT STATUS : FINAL 06/14/2022 TEST:Blood Culture, Second Order STATUS:Auth (Verified) BODY SITE: SOURCE:Blood COLLECTED DATE/TIME:06/09/22 7:19 PM Blood Culture, Second Order SPECIMEN DESCRIPTION : BLOOD LAC SPECIAL REQUESTS : NONE CULTURE : NO GROWTH 5 DAYS. REPORT STATUS : FINAL 06/14/2022 Vital Signs Most recent to oldest [Reference Range]: 1 2 3 Height 167 cm (06/29/22 2:51 PM) 167 cm (06/29/22 8:48 AM) 167 cm (06/28/22 8:15 AM) Weight 78.0 kg (06/27/22 8:08 AM) 78.0 kg (06/26/22 5:40 AM) 74.25 kg (06/25/22 9:22 AM) Oxygen Saturation [94-100 %] 98 % (06/29/22 2:51 PM) 100 % (06/29/22 8:48 AM) 97 % (06/29/22 4:00 AM) Pulse Rate [55-90 bpm] 70 bpm (06/29/22 5:52 PM) 70 bpm (06/29/22 2:51 PM) 67 bpm (06/29/22 8:48 AM) Body Mass Index [18.5-24.99] 25.01 *H* (06/09/22 6:51 PM) Blood Pressure [90-138/55-84 mm Hg] 113/58mm Hg (06/29/22 5:52 PM) 113/58mm Hg (06/29/22 2:51 PM) 119/63mm Hg (06/29/22 8:48 AM) Respiratory Rate [16-30 br/min] 16 br/min (06/29/22 5:51 PM) 16 br/min (06/29/22 3:57 PM) 16 br/min (06/29/22 2:57 PM) Temperature [96.8-100.4 DegF] 97.9 DegF (06/29/22 2:51 PM) 97.6 DegF (06/29/22 8:48 AM) 98.6 DegF (06/29/22 4:00 AM) Mode of Delivery (Oxygen) Room air (06/29/22 2:51 PM) Room air (06/29/22 8:48 AM) Room air (06/29/22 4:00 AM) Blood pressure sites Arm, left (06/29/22 2:51 PM) Arm, left (06/29/22 8:48 AM) Arm, left (06/29/22 4:00 AM) Temperature Route Oral (06/29/22 2:51 PM) Oral (06/29/22 8:48 AM) Oral (06/29/22 4:00 AM) Dry Weight 69.75 kg (06/09/22 6:51 PM) Weight Obtained Via Bed scale (06/26/22 5:40 AM) Standing scale (06/16/22 6:17 AM) Standing scale (06/15/22 6:30 AM) Social History Social History Type Response Smoking Status Never smoker; Tobacc o user in household: No entered on: 09/12/15 Sex Patient Care team information Personnel Name: Arleen Cooper MD Address: Address: [address] [place] [id number]
--- OUTSIDE RECORDS SUMMARY | 2023-06-19 12:40 | XMS_ITS | Continuity of Care Document ---
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 Name Role Phone Kenneth CLARKE, Arleen Primary Care Physician [phone] Encounter [facility] [place] Date(s): 05/16/20 - 07/05/20 [facility] [address] [place] [address]- [facility] Attending Physician: Meme Bansal MD Admitting Physician: Meme Bansal MD Allergies, Adverse Reactions, Alerts Substance Reaction [...] 09/30/20 9:23:00 EST, 04/30/20 9:21:00 EDT, Tablet, [facility], 1 tablet By Mouth [...] 05/28/20 14:45:00 EDT, Route to Pharmacy Electronically, [facility], 167.64, cm, 05/28/20 8:49:00 EDT, Height, 70, kg, 04/11/20 15:19:00... Start Date: 05/28/20 Stop Date: 07/27/20 Status: Ordered docusate sodium 100 mg oral capsule 100 mg, 1, capsule, By Mouth, 3 times a day, PRN, # 90 capsule, Refills 0, Tot. Refills 0, Maintenance, for constipation, 04/12/20 12:34:00 EDT, Route to Pharmacy Electronically, [facility], 167.64, cm, 04/12/20 4:21:00 EDT, Height, 7... Start Date: 04/12/20 Status: Ordered Envarsus XR 1 mg oral tablet, extended release 8 tablet = 8 mg, By Mouth, Daily in AM, # 240 tablet, 11 Refills, Maintenance, 04/30/20 9:22:00 EDT, [facility], 167.64, cm, 04/30/20 8:23:00 EDT, Height, 70, kg, 04/11/20 15:19:00 EDT, Dry Weight Start Date: 04/30/20 Status: Ordered Envarsus XR 1 mg oral tablet, extended release 8 tablet = 8 mg, By Mouth, Daily in AM, # 240 tablet, 0 Refills, Maintenance, 04/12/20 12:33:00 EDT, [facility], 167.64, cm, 04/12/20 4:21:00 [...] tomorrow, 04/19/20 15:08:00 EDT, Pt to pickle pumper 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 Start Date: 04/19/20 Stop Date: 06/18/20 Status: Ordered Lantus Solostar Pen 100 units/mL subcutaneous solution = 30 units, Subcutaneous Injection, Daily at bedtime, # 10 mL, 11 Refills, Maintenance, 04/17/20 16:49:00 EDT, [facility] #[id number], 167.64, cm, 04/16/20 8:56:00 EDT, Height, 70, kg, 04/11/20 15:19:00 EDT, Dry Weight Start Date: 04/17/20 Status: Ordered levothyroxine 0.025 mg oral tablet 1.5 tablet = 37.5 mcg, By Mouth, Daily, # 45 tablet, 11 Refills, Maintenance, 04/18/20 17:51:00 EDT, Tablet, [facility] #[id number], 167.64, cm, 04/16/20 8:56:00 EDT, Height, 70, kg, 04/11/20 15:19:00 EDT, Dry Weight Start Date: 04/18/20 Status: Ordered NIFEdipine 60 mg oral tablet, extended release 60 mg, 1, tablet, By Mouth, Daily, # 30 tablet, Refills 0, Tot. Refills 0, Maintenance, 04/14/20 16:03:00 EDT, Route to Pharmacy Electronically, [facility], 167.64, cm, 04/14/20 15:37:00 EDT, Height, 70, kg, 04/11/20 15:19:00 EDT, Dry We... Start Date: 04/14/20 Status: Ordered Pen [place], 31 G x 5 mm BD Ultra [...] 04/30/20 9:22:00 EDT, Route to Pharmacy Electronically, [facility], 167.64, cm, 04/30/20 8:23:00 EDT, Height, 70, kg, 04/11/20 15:... Start Date: 04/30/20 Stop Date: 09/30/20 Status: Ordered Veltassa 16.8 g oral powder for reconstitution = 16.8 Gm, By Mouth, 2 times a day, # 60 pack/packet, 1 Refills, Maintenance, 06/21/20 16:51:00 EDT, [facility], Deliver to pt in clinic 05/31/20, 167.64, cm, 06/21/20 8:47:00 EDT, Height, 70, kg, 04/11/20 15:19:00 EDT, Dry Weight Start Date: 06/21/20 Stop Date: 08/20/20 Status: Ordered Problem List Condition Effective Dates Status Health Status Inform ant ESRD on hemodialysis(Confirmed) Active Diabetes mellitus(Confirmed) Active Hearing loss(Confirmed) 1 Active HTN (hypertension)(Confirmed) Active ADAM (obstructive sleep apnea)(Confirmed) Active Care Management [facility] Sarah (Confirmed) Active Subclinical hypothyroidism(Confirmed) Active 1Weighed 1.5 pounds at . 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
--- OUTSIDE RECORDS SUMMARY | 2023-06-19 12:40 | XMS_ITS | Continuity of Care Document ---
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 Encounter Diagnosis Right arm pain(Final) - 02/18/20 Discharge Disposition: A-D/C Home Attending Physician: Anthony Vasquez MD Admitting Physician: Anthony Vasquez MD Referring Physician: Not on Staff, Referring [...] (oldterm) 2 11/27/11 Given 1Admin Note: vis 11/18/08 2Admin Note: vis Medications amLODIPine 10 mg [...] 14:47:00 EST Start Date: 09/24/19 Status: Ordered gabapentin 100 mg oral capsule 100 mg, 1, capsule, By Mouth, 3 times a day, # 90 capsule, Refills 0, Tot. Refills 0, Maintenance, 02/18/20 16:04:00 EDT, Route to Pharmacy Electronically, [facility] #[id number], 168, cm, 09/27/19 11:17:00 EST, Height, 71, kg, 02/18/20 14:21:00... Start Date: 02/18/20 Status: Ordered HydrALAZINE = 50 mg, By [...] tablet, 2 Refills, Maintenance, 09/27/19 12:25:00 EST,Tablet, [facility] #[id number], 168, cm, 09/27/19 11:17:00 EST, Height, 70, kg, 09/24/19 17:59:00 EST, Dry Weight Start Date: 09/27/19 Status: Ordered lisinopril 40 mg oral tablet 1 tablet = 40 mg, By Mouth, Daily, # 30 tablet, 0 Refills, Maintenance, 09/13/19 10:28:54 EST, Tablet Start Date: 09/13/19 Status: Ordered Pen Fl[place], 31 G x 5 mm BD Ultra [...] Care Management [facility] Diann [place] [phone](Confirmed) Active Subclinical hypothyroidism(Confirmed) Active 1Weighed 1.5 pounds at . 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 Vital Signs Most recent to oldest [Reference Range]: 1 2 3 Weight 71.0 kg (02/18/20 2:21 PM) 71.0 kg (02/18/20 2:14 PM) Oxygen Saturation [94-100 %] 98 % (02/18/20 4:14 PM) 96 % (02/18/20 2:14 PM) 100 % (02/18/20 1:54 PM) Pulse Rate [55-90 bpm] 72 bpm (02/18/20 4:14 PM) 71 bpm (02/18/20 2:14 PM) 88 bpm (02/18/20 1:54 PM) Blood Pressure [90-138/55-84 mm Hg] 136/62mm Hg (02/18/20 4:14 PM) 140/69mm Hg *H* (02/18/20 2:14 PM) Respiratory Rate [16-30 br/min] 16 br/min (02/18/20 4:14 PM) 18 br/min (02/18/20 2:14 PM) Temperature [96.8-100.4 DegF] 98.3 DegF (02/18/20 2:14 PM) Mode of Delivery (Oxygen) Room air (02/18/20 4:14 PM) Room air (02/18/20 2:14 PM) Room air (02/18/20 1:54 PM) Blood pressure sites Arm, left (02/18/20 4:14 PM) Arm, left (02/18/20 2:14 PM) Temperature Route Oral (02/18/20 2:14 PM) Dry Weight 71.0 kg (02/18/20 2:21 PM) 71.0 kg (02/18/20 2:14 PM) Weight Obtained Via Standing scale (02/18/20 2:14 PM) Dry Weight Obtained Via Standing scale (02/18/20 2:14 PM) Social History Social History Type Response Smoking Status Never smoker; Tobacc o user in household: No entered on: 09/12/15 Sex
--- OUTSIDE RECORDS SUMMARY | 2023-06-19 12:40 | XMS_ITS | Continuity of Care Document ---
Author Name Unknown Organization [facility] ter Address [address] [place] [address]- Care Team Providers Care Web Analyst Name Role Phone Kenneth CLARKE, Arleen Primary Care Physician [place] [facility] [place] - 07/30/[address] [address] Discharge Disposition: A-D/C Home Attending Physician: Charisma Carroll MD Admitting Physician: Poncho Redmond MD Referring Physician: Not on Staff, Referring MD Allergies, Adverse Reactions, Alerts Substance Reaction Severity Status ibuprofen decreased kidney function Ac tive aspirin decresed kidney function Act nina Toradol 1 decreased kidney function Ac tive Robaxin itching Active Valium difficulty breathing Active Vicodin itching Active 1Pt states he is not allergic to this medication Immunizations Given and Recorded Vaccine Date Status Refusal Reason [id number] 12y+ bivalent booster vax 1 07/17/22 Given [...] Note: vis Medications B-D PEN NDL SHRT [id number](02/10) COOPER B-D PEN NDL SHRT [id number](02/10) COOPER, See Instructions, # 100 each, 0 [...] oral capsule 300 mg, Capsule, By Mouth, 07/30/22 9:00:00 EDT Start Date: 07/30/22 Stop Date: 07/30/22 Status: Completed gabapentin 300 mg oral capsule [...] 2 Refills, Maintenance, 06/29/22 11:32:00 EDT, Solution, [facility] #[id number], Partial fillupon patient request if the prescription is... Start Date: 06/29/22 Status: Ordered insulin lispro (concentrated) 200 units/mL subcutaneous solution See Instructions, 3 units Subcutaneous Infusion for FSBS of every 100 and 1 unit additional for every 40 above 100, # 12 mL, 3 Refills, Maintenance, 06/29/22 14:22:00 EDT, [facility] #[id number], Partial fill upon patient request if the prescript... Start Date: 06/29/22 Status: Ordered levothyroxine 0.025 mg oral tablet 1.5 tablet, By Mouth, Daily, # 135 tablet, 0 Refills, [facility] #[id number], 167.64, cm, 01/23/22 11:51:00 EDT, Height, 63.7, kg, 01/30/21 22:32:00 EDT, Dry Weight Start Date: 03/27/22 Status: Ordered midodrine 5 mg oral tablet 10 mg, Tablet, By Mouth, Hold for: Hold for SBP > 120, 07/30/22 9:00:00 EDT Start Date: 07/30/22 Stop Date: 07/30/22 Status: Completed midodrine 5 mg oral tablet 10 mg, Tablet, By Mouth, Hold for: Hold for SBP > 120, 07/30/22 15:00:00 EDT Start Date: 07/30/22 Stop Date: 07/30/22 Status: Completed midodrine 5 mg oral tablet 10 mg, 2, tablet, By Mouth, 3 times a day, Refills 0, Maintenance, 07/30/22 13:40:00 EDT, Partial fill upon patient request if the prescription is for a schedule II opioid drug. Start Date: 07/30/22 Status: Ordered multivitamin Multiple Vitamins oral capsule 1 capsule, By Mouth, Daily, # 30 capsule, 0 Refills, Maintenance, 06/28/22 11:24:00 EDT, Capsule, [facility] #[id number], Partial fill upon patient request if the [...] 06/28/22 Stop Date: 07/28/22 Status: Ordered Pen [place], 31 G x 5 mm BD Ultra [...] 0 Refills, Maintenance, 06/28/22 11:25:00 EDT, Tablet, [facility] #[id number], Partial fill upon patient request if the prescription is for a schedule II opioid drug., 167, cm, 06/28/22 8:15:00 EDT,... Start Date: 06/28/22 Status: Ordered PROzac 20 mg oral capsule 20 mg, 1, capsule, By Mouth, Daily, # 30 capsule, Refills 0, Tot. Refills 0, Maintenance, 07/10/22 11:33:00 EDT, Route to Pharmacy Electronically, [facility] #[id number], Partial fill upon patient request if the [...] 09/08/22 11:34:00 EST, 07/10/22 11:34:00 EDT, Tablet, [facility] #[id number]... Start Date: 07/10/22 Stop Date: 09/08/22 Status: Ordered tacrolimus 1 mg oral tablet, extended release = 8 mg, By Mouth, Daily in AM, Please take tacrolimus 8 mg PO daily in AM and f/u with nephrologistfor level monitoring and dose adjustment., # 30 tablet, 0 Refills, Maintenance, 07/10/22 12:57:00 EDT, XR Tablet, [facility] #[id number], Partial... Start Date: 07/10/22 Stop Date: 08/09/22 Status: Ordered tamsulosin 0.4 mg oral capsule 0.4 mg, 1, capsule, By Mouth, Daily, # 30 capsule, Refills 0, Tot. Refills 0, Maintenance, :30:00 EDT, Route to Pharmacy Electronically, [facility] #[id number], Partial fill upon patient request if the prescription is for a schedule II... Start Date: 07/21/22 Status: Ordered valganciclovir 450 mg oral tablet 450 mg, 1, tablet, By Mouth, Every Thursday, Thursday and Thursday, # 26 tablet, Refills 1, Tot. Refills 1, Maintenance, 06/28/22 11:26:00 EDT, Route to Pharmacy Electronically, [facility] #[id number], Partial fill upon patient request if the prescr... Start Date: 06/28/22 Stop Date: 09/28/22 Status: Ordered vancomycin 125 mg oral capsule 1 capsule = 125 mg, By Mouth, Every 6 hours, for 10 days, Doses over 125 mg require ID consult. Indication for Use: C. difficile colitis, # 40 capsule, 0 Refills, Acute 07/31/22 9:30:00 EDT, :30:00 EDT, Capsule, [facility] #[id number],... Start Date: 07/21/22 Stop Date: 07/31/22 Status: Ordered Problem List Condition Confirmation Course Effective Dates Status H ealth Status Informant ESRD on hemodialysis Confirmed Active Diabetes mellitus Confirmed Active Hearing loss 1 Confirmed Active -donor kidney transplant recipient 2 Confirmed 04/11/20 Active Hyperkalemia Confirmed Active HTN (hypertension) Confirmed Active Lower back pain Confirmed Active ADAM (obstructive sleep apnea) Confirmed Active [facility] Care Management [facility], Vernell Fabian [phone] Confirmed Active Subclinical hypothyroidism Confirmed Active 1Weighed 1.5 pounds at . 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 Results Orders for Microbiology Reports Name Date Urine Culture (URINE CULTURE) 07/24/22 Blood Culture 07/22/22 Blood Culture #2 07/22/22 Microbiology Reports TEST:Urine Culture STATUS:Auth (Verified) BODY SITE: SOURCE:URINE COLLECTED DATE/TIME:07/24/22 4:30 PM Urine Culture SPECIMEN DESCRIPTION : URINE SPECIAL REQUESTS : NONE CULTURE : 10-50,000 COL/ML PSEUDOMONAS AERUGINOSA This isolate was identified using Maldi-TOF system These AST results were performed on the SphereUpcan ID and AST system REPORT STATUS : FINAL 07/27/2022 ORGANISM 10-50,000 COL/ML PSEUDOMONAS AERUGINOSA This isolate was identified using Maldi-TOF system These AST results were performed on the Microscan ID and AST system METHOD MIN. INHIB. CONC. (MCG/ML) CEFEPIME SUSCEPTIBLE CEFTAZIDIME SUSCEPTIBLE CIPROFLOXACIN SUSCEPTIBLE GENTAMICIN SUSCEPTIBLE LEVOFLOXACIN SUSCEPTIBLE MEROPENEM SUSCEPTIBLE PIPERACILLIN/TAZOBAC SUSCEPTIBLE TEST:Blood Culture STATUS:Auth (Verified) BODY SITE: SOURCE:Blood COLLECTED DATE/TIME:07/22/22 7:30 PM Blood Culture SPECIMEN DESCRIPTION : BLOOD NO SITE SPECIAL REQUESTS : NONE CULTURE : NO GROWTH 5 DAYS. REPORT STATUS : FINAL 07/27/2022 TEST:Blood Culture, Second Order STATUS:Auth (Verified) BODY SITE: SOURCE:Blood COLLECTED DATE/TIME:07/22/22 7:30 PM Blood Culture, Second Order SPECIMEN DESCRIPTION : BLOOD NO SITE SPECIAL REQUESTS : NONE CULTURE : NO GROWTH 5 DAYS. REPORT STATUS : FINAL 07/27/2022 Radiology Reports * Exam Date Time Procedure Performing Provider Status 07/22/22 7:52 PM Chest 2 Views Frontal and Lat Lissette Christel; Auth (Verified) Notes: (Chest 2 Views Frontal and Lat) Reason For Exam: Shortness of Breath, Fever;Other: RESULT: Chest 2 Views Frontal and Lat Chest 2 Views Frontal and Lat Hx of Present Illness: symptomatic hypotension; Reason: Other:; Shortness of Breath, Fever; Clinical Question(s): Pneumonia COMPARISON: 07/18/2022 FINDINGS: LINES AND TUBES: None. LUNGS AND PLEURA: Low lung volumes with mild basilar atelectasis. Lungs are otherwise clear with no consolidation. No pleural effusion. No pneumothorax. HEART, MEDIASTINUM AND JASON: Heart is normal in size. Normal mediastinal and hilar contour. BONES AND SOFT TISSUES: No acute abnormality. IMPRESSION: Low lung volumes with mild basilar atelectasis. No acute abnormality. WSN: [id number] Ordering Physician: Evelin Lopez Dictated By: Charisma Hale MD Dictated Date/Time: 07/22/22 8:02 pm Reviewed By: Charisma Hale MD Signed By: Charisma Hale MD Signed Date/Time: 07/22/22 8:02 pm Transcribed By: AMANDA Transcribed Date/Time: 07/22/22 8:01 pm Vital Signs Most recent to oldest [Reference Range]: 1 2 3 Height 168 cm (07/30/22 3:53 PM) 168 cm (07/30/22 8:56 AM) 168 cm (07/30/22 8:24 AM) Weight 61.6 kg (07/28/22 1:20 PM) 61.6 kg (07/28/22 2:38 AM) 60.2 kg (07/24/22 12:08 AM) Oxygen Saturation [94-100 %] 100 % (07/30/22 3:53 PM) 98 % (07/30/22 8:24 AM) 98 % (07/30/22 3:34 AM) Pulse Rate [55-90 bpm] 90 bpm (07/30/22 4:26 PM) 86 bpm (07/30/22 3:53 PM) 81 bpm (07/30/22 10:25 AM) Body Mass Index [18.5-24.99 kg/m2] 21.33 kg/m2 (07/24/22 12:08 AM) Blood Pressure [90-138/55-84 mm Hg] 101/61mm Hg (07/30/22 4:26 PM) 126/72mm Hg (07/30/22 3:53 PM) 100/63mm Hg (07/30/22 10:25 AM) Respiratory Rate [16-30 br/min] 18 br/min (07/30/22 3:53 PM) 18 br/min (07/30/22 9:21 AM) 18 br/min (07/30/22 8:24 AM) Temperature [96.8-100.4 DegF] 97.7 DegF (07/30/22 3:53 PM) 97.6 DegF (07/30/22 8:24 AM) 98.0 DegF (07/30/22 3:34 AM) Mode of Delivery (Oxygen) Room air (07/30/22 3:53 PM) Room air (07/30/22 8:24 AM) Room air (07/30/22 3:34 AM) Blood pressure sites Arm, left (07/30/22 3:53 PM) Arm, left (07/30/22 8:24 AM) Arm, left (07/30/22 3:34 AM) Temperature Route Oral (07/30/22 3:53 PM) Temporal (07/30/22 8:24 AM) Temporal (07/30/22 3:34 AM) Dry Weight 60.2 kg 1 (07/24/22 12:08 AM) Weight Obtained Via Bed scale (07/28/22 2:38 AM) Bed scale (07/24/22 12:08 AM) Dry Weight Obtained Via Bed scale (07/24/22 12:08 AM) 1Result Comment: pt does not know his dry weight. so using bed scale admission weight. Social History Social History Type Response Smoking Status Never smoker; Tobacc o user in household: No entered on: 09/12/15 Sex Note * BHSPowerscribe , CIS S: TRANSCRIBE Charisma Hale MD: VERIFY Event Display: Result: Authored Date: [id number] Chest 2 Views Frontal and Lat Hx of Present Illness: symptomatic hypotension; Reason: Other:; Shortness of Breath, Fever; Clinical Question(s): Pneumonia COMPARISON: 07/18/2022 FINDINGS: LINES AND TUBES: None. LUNGS AND PLEURA: Low lung volumes with mild basilar atelectasis. Lungs are otherwise clear with no consolidation. No pleural effusion. No pneumothorax. HEART, MEDIASTINUM AND JASON: Heart is normal in size. Normal mediastinal and hilar contour. BONES AND SOFT TISSUES: No acute abnormality. IMPRESSION: Low lung volumes with mild basilar atelectasis. No acute abnormality. WSN: [id number] Ordering Physician: Evelin Lopez Dictated By: Charisma Hale MD Dictated Date/Time: 07/22/22 8:02 pm Reviewed By: Charisma Hale MD Signed By: Charisma Hale MD Signed Date/Time: 07/22/22 8:02 pm Transcribed By: AMANDA Transcribed Date/Time: 07/22/22 8:01 pm Patient Care team information Personnel Name: Arleen Cooper MD Address: Address: [address] [place] [address]
--- OUTSIDE RECORDS SUMMARY | 2023-06-19 12:40 | XMS_ITS | Continuity of Care Document ---
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 Start Date: 02/18/21 Stop Date: 08/17/21 Status: Ordered B-D PEN NDL SHRT [id number](02/10) COOPER B-D PEN NDL SHRT [id number](02/10) COOPER, See Instructions, # 100 each, 0 [...] 07/18/20 11:05:00 EDT, Route to Pharmacy Electronically, [facility], 167.64, cm, 07/12/20 8:38:00 EDT, Height, 70, kg, 04/11/20 15:19:00... Start Date: 07/18/20 Stop Date: 08/17/20 Status: Ordered Envarsus XR 1 mg oral tablet, extended release 4 tablet = 4 mg, By Mouth, Daily in AM, # 240 tablet, 0 Refills, Maintenance, 04/12/20 12:33:00 EDT, [facility], 167.64, cm, 04/12/20 4:21:00 [...] Weight Start Date: 04/29/21 Status: Ordered gabapentin 100 mg oral capsule 1 -2 capsule, By Mouth, 3 times a day, PRN, Start with 1 cap and increase to 2 if needed/tolerated,# 50 capsule, Refills 0, Tot. Refills 0, Maintenance, back pain, 01/09/22 14:02:00 EDT, Route to Pharmacy Electronically, [facility] #[id number],... Start Date: 01/09/22 Stop Date: 01/23/22 Status: Ordered Kayexcelate Powder Kayexcelate Powder, 30 grams, By Mouth, Daily, # 454 Gm, Refills 1, Tot. Refills 1, Maintenance, Mix 8 level teaspoons in water or apple juice & drink by mouth today & tomorrow, 04/19/20 15:08:00 EDT, Pt to berry picker 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 Start Date: 04/19/20 Stop Date: 06/18/20 Status: Ordered Lantus Solostar Pen 100 units/mL subcutaneous solution = 35 units, Subcutaneous Injection, Daily at bedtime, # 12 mL, 11 Refills, Maintenance, 03/12/21 16:28:00 EDT, [facility] #[id number], 167.64, cm, 02/28/21 10:34:00 EDT, Height, 63.7, kg, 01/30/21 22:32:00 EDT, Dry Weight Start Date: 03/12/21 Status: Ordered levothyroxine 0.025 mg oral tablet 1.5 tablet = 37.5 mcg, By Mouth, Daily, You are due for thyroid lab work. Go to the lab, # 135 tablet, 0 Refills, Maintenance, 06/17/21 5:30:00 EDT, Tablet, [facility], 167.64, cm, 04/04/21 10:55:00 EDT, Height, 63.7, kg, 01/30/21 22:... Start Date: 06/17/21 Status: Ordered Pen [place], 31 G x 5 mm BD Ultra [...] pack/packet, 1 Refills, Maintenance, 06/21/20 16:51:00 EDT, [facility], Deliver to pt in [...] (obstructive sleep apnea)(Confirmed) Active N Care Management Vernell Mckenzie [phone](Confirmed) Active Subclinical hypothyroidism(Confirmed) Active 1Weighed 1.5 pounds at . 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 Vital Signs Most recent to oldest [Reference Range]: 1 Height 167.64 cm (01/09/22 1:27 PM) Oxygen Saturation [94-100 %] 98 % (01/09/22 1:27 PM) Pulse Rate [55-90 bpm] 82 bpm (01/09/22 1:27 PM) Blood Pressure [90-138/55-84 mm Hg] 131/ 78mm Hg (01/09/22 1:27 PM) Temperature [96.8-100.4 DegF] 97.9 DegF (01/09/22 1:27 PM) Mode of Delivery (Oxygen) Room air (01/09/22 1:27 PM) Blood pressure sites Arm, left (01/09/22 1:27 PM) Temperature Route Temporal (01/09/22 1:27 PM) Social History Social History Type Response Smoking Status Never smoker; Tobacc o user in household: No entered on: 09/12/15 Sex
--- OUTSIDE RECORDS SUMMARY | 2023-06-19 12:40 | XMS_ITS | Continuity of Care Document ---
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 Start Date: 02/18/21 Stop Date: 08/17/21 Status: Ordered B-D PEN NDL SHRT [id number](02/10) COOPER B-D PEN NDL SHRT [id number](02/10) COOPER, See Instructions, # 100 each, 0 [...] 01/23/22 16:09:00 EDT, Route to Pharmacy Electronically, [facility] #[id number], Partial fill upon patient request if the prescription is for a jana... Start Date: 01/23/22 Status: Ordered Kayexcelate Powder Kayexcelate Powder, 30 grams, By Mouth, Daily, # 454 Gm, Refills 1, Tot. Refills 1, Maintenance, Mix 8 level teaspoons in water or apple juice & drink by mouth today & tomorrow, 04/19/20 15:08:00 EDT, Pt to cone picker 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 Start Date: 04/19/20 Stop Date: 06/18/20 Status: Ordered Lantus Solostar Pen 100 units/mL subcutaneous solution = 35 units, Subcutaneous Injection, Daily at bedtime, # 12 mL, 11 Refills, Maintenance, 01/18/22 14:50:00 EDT, [facility] #[id number], 167.64, cm, 01/09/22 13:27:00 EDT, Height, 63.7, kg, 01/30/21 22:32:00 EDT, Dry Weight Start Date: 01/18/22 Status: Ordered levothyroxine 0.025 mg oral tablet 1.5 tablet = 37.5 mcg, By Mouth, Daily, You are due for thyroid lab work. Go to the lab, # 45 tablet, 0 Refills, Maintenance, 01/18/22 14:50:00 EDT, Tablet, [facility] #[id number], 167.64, cm, 01/09/22 13:27:00 EDT, Height, 63.7, kg, 01/30/21 22:... Start Date: 01/18/22 Status: Ordered Pen [place], 31 G x 5 mm BD Ultra [...] pain(Confirmed) Active ADAM (obstructive sleep apnea)(Confirmed) Active [facility] Care Management [facility] , Vernell Fabian [phone](Confirmed) Active Subclinical hypothyroidism(Confirmed) Active 1Weighed 1.5 pounds at . 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
--- OUTSIDE RECORDS SUMMARY | 2023-06-19 12:40 | XMS_ITS | Continuity of Care Document ---
Author Name Unknown Organization [facility] Address [address] [place] [address]- Care Team Providers Care Train Controller Name Role Phone Arleen Cooper MD Primary Care Physician Encounter [facility] [place] Date(s): 04/18/20 - 05/18/[address] [address]- [facility] Allergies, Adverse Reactions, Alerts Substance Reaction [...] 09/30/20 9:23:00 EST, 04/30/20 9:21:00 EDT, Tablet, [facility], 1 tablet By Mouth [...] 04/30/20 9:22:00 EDT, Route to Pharmacy Electronically, [facility], 167.64, cm, 04/30/20 8:23:00 EDT, Height, 70, kg, ... Start Date: 04/30/20 Stop Date: 06/30/20 Status: Ordered docusate sodium 100 mg oral capsule 100 mg, 1, capsule, By Mouth, 3 times a day, PRN, # 90 capsule, Refills 0, Tot. Refills 0, Maintenance, for constipation, 04/12/20 12:34:00 EDT, Route to Pharmacy Electronically, [facility], 167.64, cm, 04/12/20 4:21:00 EDT, Height, 7... Start Date: 04/12/20 Status: Ordered Envarsus XR 1 mg oral tablet, extended release 8 tablet = 8 mg, By Mouth, Daily in AM, # 240 tablet, 11 Refills, Maintenance, 04/30/20 9:22:00 EDT, [facility], 167.64, cm, 04/30/20 8:23:00 EDT, Height, 70, kg, 04/11/20 15:19:00 EDT, Dry Weight Start Date: 04/30/20 Status: Ordered Envarsus XR 1 mg oral tablet, extended release 8 tablet = 8 mg, By Mouth, Daily in AM, # 240 tablet, 0 Refills, Maintenance, 04/12/20 12:33:00 EDT, [facility], 167.64, cm, 04/12/20 [...] Maintenance, 04/17/20 16:49:00 EDT, [facility] #[id number], 167.64, cm, 04/16/20 8:56:00 EDT, Height, 70, kg, 04/11/20 15:19:00 EDT, Dry Weight Start Date: 04/17/20 Status: Ordered levothyroxine 0.025 mg oral tablet 1.5 tablet = 37.5 mcg, By Mouth, Daily, # 45 tablet, 11 Refills, Maintenance, 04/18/20 17:51:00 EDT, Tablet, [facility] #[id number], 167.64, cm, 04/16/20 8:56:00 EDT, Height, 70, kg, 04/11/20 15:19:00 EDT, Dry Weight Start Date: 04/18/20 Status: Ordered NIFEdipine 60 mg oral tablet, extended release 60 mg, 1, tablet, By Mouth, Daily, # 30 tablet, Refills 0, Tot. Refills 0, Maintenance, 04/14/20 16:03:00 EDT, Route to Pharmacy Electronically, [place] [address], 167.64, cm, 04/14/20 15:37:00 EDT, Height, 70, kg, 04/11/20 15:19:00 EDT, Dry We... Start Date: 04/14/20 Status: Ordered Pen [place], 31 G x 5 mm BD Ultra [...] 04/30/20 9:22:00 EDT, Route to Pharmacy Electronically, [facility], 167.64, cm, 04/30/20 8:23:00 [...]
--- OUTSIDE RECORDS SUMMARY | 2023-06-19 12:41 | XMS_ITS | Continuity of Care Document ---
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 Start Date: 02/18/21 Stop Date: 08/17/21 Status: Ordered B-D PEN NDL SHRT [id number](02/10) COOPER B-D PEN NDL SHRT [id number](02/10) COOPER, See Instructions, # 100 each, 0 [...] 07/18/20 11:05:00 EDT, Route to Pharmacy Electronically, [facility], 167.64, cm, 07/12/20 8:38:00 EDT, Height, 70, kg, 04/11/20 15:19:00... 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 Start Date: 04/19/20 Stop Date: 06/18/20 Status: Ordered Lantus Solostar Pen 100 units/mL subcutaneous solution = 35 units, Subcutaneous Injection, Daily at bedtime, # 12 mL, 11 Refills, Maintenance, 03/12/21 16:28:00 EDT, [facility] #[id number], 167.64, cm, 02/28/21 10:34:00 EDT, Height, 63.7, kg, 01/30/21 22:32:00 EDT, Dry Weight Start Date: 03/12/21 Status: Ordered levothyroxine 0.025 mg oral tablet 1.5 tablet = 37.5 mcg, By Mouth, Daily, You are due for thyroid lab work. Go to the lab, # 135 tablet, 0 Refills, Maintenance, 06/17/21 5:30:00 EDT, Tablet, [facility], 167.64, cm, 04/04/21 10:55:00 EDT, Height, 63.7, kg, 01/30/21 22:... Start Date: 06/17/21 Status: Ordered Pen [place], 31 G x 5 mm BD Ultra [...] pack/packet, 1 Refills, Maintenance, 06/21/20 16:51:00 EDT, [facility], Deliver to pt in clinic [...] (hypertension)(Confirmed) Active ADAM (obstructive sleep apnea)(Confirmed) Active [facility] Care Management [facility] , Vernell Fabian [phone](Confirmed) Active Subclinical hypothyroidism(Confirmed) Active 1Weighed 1.5 pounds at . 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
--- OUTSIDE RECORDS SUMMARY | 2023-06-19 12:41 | XMS_ITS | Continuity of Care Document ---
Author Name Unknown Organization [facility] Address [address] [place] [id number]- Care Team Providers Care Cycle Director Name Role Phone Arleen Cooper MD Primary Care Physician En[place] [facility] [place](s): 02/16/20 - 02/23/[address] [address]- [facility] Encounter Diagnosis Diabetes mellitus(Discharge Diagnosis) - 02/16/20 ESRD on hemodialysis(Discharge Diagnosis) - 02/16/20 HTN (hypertension)(Discharge Diagnosis) - 02/16/20 ADAM (obstructive sleep apnea)(Discharge Diagnosis) - 02/16/20 Hand paresthesia(Discharge Diagnosis) - 02/16/20 Attending Physician: Arleen Cooper MD Allergies, Adverse Reactions, [...] 02/18/20 16:04:00 EDT, Route to Pharmacy Electronically, [facility] #[id number], 168, cm, 09/27/19 11:17:00 EST, Height, 71, [...] tablet, 2 Refills, Maintenance, 09/27/19 12:25:00 EST,Tablet, [facility] #[id number], 168, cm, 09/27/19 11:17:00 EST, Height, 70, kg, 09/24/19 17:59:00 EST, Dry Weight Start Date: 09/27/19 Status: Ordered lisinopril 40 mg oral tablet 1 tablet = 40 mg, By Mouth, Daily, # 30 tablet, 0 Refills, Maintenance, 09/13/19 10:28:54 EST, Tablet Start Date: 09/13/19 Status: Ordered Pen [place], 31 G x 5 mm BD Ultra [...] Active Care Management [facility] Diann [place] [phone](Confirmed) Active Subclinical hypothyroidism(Confirmed) Active 1Weighed 1.5 pounds at . 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 Diagnosis Diagnosis Type Effective Dates Health Status Clinical Service Informant Diabetes mellitus Discharge Diagnosis 02/16/20 ESRD on hemodialysis Discharge Diagnosis 02/16/20 HTN (hypertension) Discharge Diagnosis 02/16/20 ADAM (obstructive sleep apnea) Discharge Diagnosis 02/16/20 Hand paresthesia Discharge Diagnosis 02/16/20 Social History Social History Type Response Smoking Status Never smoker; Tobacc o user in household: No entered on: 09/12/15 Sex
--- OUTSIDE RECORDS SUMMARY | 2023-06-19 12:41 | XMS_ITS | Continuity of Care Document ---
Author Name Unknown Organization [facility] Address [address] [place] [id number]- Care Team Providers Care Forest Pathologist Name Role Phone Arleen Cooper MD Primary Care Physician [phone] Encounter [facility] [place] Date(s): 08/16/21 - 09/15/[address] [address] Allergies, Adverse Reactions, Alerts Substance Reaction [...] 02/18/21 16:31:00 EDT, Route to Pharmacy Electronically, [facility] #[id number], Partial fill upon patientrequest if the prescription is for a schedule II op... Start Date: 02/18/21 Stop Date: 08/17/21 Status: Ordered B-D PEN NDL SHRT [id number](02/10) COOPER B-D PEN NDL SHRT [id number](02/10) COOPER, See Instructions, # 100 each, 0 [...] 07/18/20 11:05:00 EDT, Route to Pharmacy Electronically, [facility], 167.64, cm, 07/12/20 8:38:00 EDT, Height, 70, kg, 04/11/20 15:19:00... 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 Start Date: 04/19/20 Stop Date: 06/18/20 Status: Ordered Lantus Solostar Pen 100 units/mL subcutaneous solution = 35 units, Subcutaneous Injection, Daily at bedtime, # 12 mL, 11 Refills, Maintenance, 03/12/21 16:28:00 EDT, [facility] #[id number], 167.64, cm, 02/28/21 10:34:00 EDT, Height, 63.7, kg, 01/30/21 22:32:00 EDT, Dry Weight Start Date: 03/12/21 Status: Ordered levothyroxine 0.025 mg oral tablet 1.5 tablet = 37.5 mcg, By Mouth, Daily, You are due for thyroid lab work. Go to the lab, # 135 tablet, 0 Refills, Maintenance, 06/17/21 5:30:00 EDT, Tablet, [facility], 167.64, cm, 04/04/21 10:55:00 EDT, Height, 63.7, kg, 01/30/21 22:... Start Date: 06/17/21 Status: Ordered Pen [place], 31 G x 5 mm BD Ultra [...] pack/packet, 1 Refills, Maintenance, 06/21/20 16:51:00 EDT, [facility], Deliver to pt [...] Care Management [facility] , Vernell Fabian [phone](Confirmed) Active Subclinical hypothyroidism(Confirmed) Active 1Weighed 1.5 pounds at . 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
--- OUTSIDE RECORDS SUMMARY | 2023-06-19 12:41 | XMS_ITS | Continuity of Care Document ---
Author Name Unknown Organization [facility] Address [address] [place] [id number]- Care Team Providers Care Supervisor Gear Repair Name Role Phone Arleen Cooper MD Primary Care Physician Encounter [facility] [place] Date(s): 01/30/21 - 01/30/[address] [address]- Discharge Disposition: A-D/C Home Attending Physician: Benigno Bolden MD Admitting Physician: Benigno Bolden MD Referring Physician: Not on Staff, Referring [...] 07/18/20 11:05:00 EDT, Route to Pharmacy Electronically, [facility], 167.64, cm, 07/12/20 8:38:00 EDT, Height, 70, kg, 04/11/20 15:19:00... Start Date: 07/18/20 Stop Date: 08/17/20 Status: Ordered Envarsus XR 1 mg oral tablet, extended release 8 tablet = 8 mg, By Mouth, Daily in AM, # 240 tablet, 11 Refills, Maintenance, 04/30/20 9:22:00 EDT, [facility], 167.64, cm, 04/30/20 8:23:00 EDT, Height, 70, kg, 04/11/20 15:19:00 EDT, Dry Weight Start Date: 04/30/20 Status: Ordered Envarsus XR 1 mg oral tablet, extended release 4 tablet = 4 mg, By Mouth, Daily in AM, # 240 tablet, 0 Refills, Maintenance, 04/12/20 12:33:00 EDT, [facility], 167.64, cm, 04/12/20 4:21:00 EDT, Height, [...] tomorrow, 04/19/20 15:08:00 EDT, 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 Start Date: 04/19/20 Stop Date: 06/18/20 Status: Ordered Lantus Solostar Pen 100 units/mL subcutaneous solution = 30 units, Subcutaneous Injection, Daily at bedtime, # 10 mL, 11 Refills, Maintenance, 04/17/20 16:49:00 EDT, [facility] #[id number], 167.64, cm, 04/16/20 8:56:00 EDT, Height, 70, kg, 04/11/20 15:19:00 EDT, Dry Weight Start Date: 04/17/20 Status: Ordered levothyroxine 0.025 mg oral tablet 1.5 tablet = 37.5 mcg, By Mouth, Daily, # 45 tablet, 11 Refills, Maintenance, 04/18/20 17:51:00 EDT, Tablet, [facility] #[id number], 167.64, cm, 04/16/20 8:56:00 EDT, Height, 70, kg, 04/11/20 15:19:00 EDT, Dry Weight Start Date: 04/18/20 Status: Ordered Pen [place], 31 G x 5 mm BD Ultra [...] pack/packet, 1 Refills, Maintenance, 06/21/20 16:51:00 EDT, [facility], Deliver to pt in [...] ADAM (obstructive sleep apnea)(Confirmed) Active Care Management [facility] Sarah (Confirmed) Active Subclinical hypothyroidism(Confirmed) Active 1Weighed 1.5 pounds at . 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 Vital Signs Most recent to oldest [Reference Range]: 1 2 3 Weight 63.7 kg (01/30/21 10:32 PM) 63.7 kg (01/30/21 9:26 PM) 63.7 kg (01/30/21 7:38 PM) Oxygen Saturation [94-100 %] 99 % (01/30/21 10:32 PM) 99 % (01/30/21 9:26 PM) 100 % (01/30/21 7:38 PM) Pulse Rate [55-90 bpm] 85 bpm (01/30/21 10:32 PM) 91 bpm *H* (01/30/21 9:26 PM) 88 bpm (01/30/21 7:38 PM) Blood Pressure [90-138/55-84 mm Hg] 155/84mm Hg *H* (01/30/21 10:32 PM) 162/81mm Hg *H* (01/30/21 9:26 PM) 163/97mm Hg *H* (01/30/21 7:38 PM) Respiratory Rate [16-30 br/min] 13 br/min *L* (01/30/21 10:32 PM) 22 br/min (01/30/21 9:26 PM) 15 br/min *L* (01/30/21 7:38 PM) Temperature [96.8-100.4 DegF] 98.2 DegF (01/30/21 10:32 PM) 97.8 DegF (01/30/21 7:38 PM) 98.9 DegF (01/30/21 5:48 PM) Mode of Delivery (Oxygen) Room air (01/30/21 10:32 PM) Room air (01/30/21 7:38 PM) Room air (01/30/21 5:48 PM) Blood pressure sites Leg, right (01/30/21 10:32 PM) Arm, left (01/30/21 7:38 PM) Temperature Route Oral (01/30/21 10:32 PM) Oral (01/30/21 7:38 PM) Oral (01/30/21 5:48 PM) Dry Weight 63.7 kg (01/30/21 10:32 PM) 63.7 kg (01/30/21 9:26 PM) 63.7 kg (01/30/21 7:38 PM) Social History Social History Type Response Smoking Status Never smoker; Tobacc o user in household: No entered on: 09/12/15 Sex
--- OUTSIDE RECORDS SUMMARY | 2023-06-19 12:41 | XMS_ITS | Continuity of Care Document ---
Author Name Unknown Organization [facility] Address [address] [place] [id number]- Care Team Providers Care Tower Cleaner Name Role Phone Arleen Cooper MD Primary Care Physician Encounter [place] Date(s): 04/11/20 - 04/14/[address] [address]- [facility] Discharge Disposition: A-D/C Home Attending Physician: Trae Romo MD Admitting Physician: Trae Romo MD Referring Physician: Trae Romo MD Allergies, Adverse Reactions, Alerts Substance Reaction [...] 04/13/20 16:35:00 EDT, Route to Pharmacy Electronically, [facility], 167.64, cm, 04/13/20 11:46:00 EDT, H... Start Date: 04/13/20 Stop Date: 04/18/20 Status: Ordered amLODIPine 10 mg oral tablet 10 mg, 1, tablet, By Mouth, Daily, Refills 0, Maintenance, 02/16/20 11:50:00 EDT Start Date: 02/16/20 Status: Ordered Bactrim 400 mg-80 mg oral tablet 1 tablet, By Mouth, Daily, # 30 tablet, 0 Refills, Acute 05/14/20 12:35:00 EDT, 04/12/20 12:33:00 EDT, Tablet, [facility], 1 tablet By Mouth Daily, [...] 04/12/20 12:33:00 EDT, Route to Pharmacy Electronically, [facility], 167.64, cm, 04/12/20 4:21:00 EDT, [place]... Start Date: 04/12/20 Stop Date: 05/14/20 Status: Ordered docusate sodium 100 mg oral capsule 100 mg, 1, capsule, By Mouth, 3 times a day, PRN, # 90 capsule, Refills 0, Tot. Refills 0, Maintenance, for constipation, 04/12/20 12:34:00 EDT, Route to Pharmacy Electronically, [facility], 167.64, cm, 04/12/20 4:21:00 EDT, Height, 7... Start Date: 04/12/20 Status: Ordered Envarsus XR 1 mg oral tablet, extended release 8 tablet = 8 mg, By Mouth, Daily in AM, # 240 tablet, 0 Refills, Maintenance, 04/12/20 12:33:00 EDT, [facility], 167.64, cm, 04/12/20 4:21:00 [...] tablet, 2 Refills, Maintenance, 09/27/19 12:25:00 EST,Tablet, [id number] #[id number], 168, cm, 09/27/19 11:17:00 EST, Height, 70, kg, 09/24/19 17:59:00 EST, Dry Weight Start Date: 09/27/19 Status: Ordered NIFEdipine 60 mg oral tablet, extended release 60 mg, 1, tablet, By Mouth, Daily, # 30 tablet, Refills 0, Tot. Refills 0, Maintenance, 04/14/20 16:03:00 EDT, Route to Pharmacy Electronically, [facility], 167.64, cm, 04/14/20 15:37:00 EDT, Height, 70, kg, 04/11/20 15:19:00 EDT, Dry We... Start Date: 04/14/20 Status: Ordered oxyCODONE 5 mg oral tablet 5 mg, 1, tablet, By Mouth, Every 4 hours, PRN, for 3 days, # 12 tablet, Refills 0, Tot. Refills 0, Acute 04/16/20 16:35:00 EDT, Pain , Severe, 04/13/20 16:35:00 EDT, Route to Pharmacy Electronically,[facility], Partial fill upon patient... Start Date: 04/13/20 Stop Date: 04/16/20 Status: Ordered Pen [place], 31 G x 5 mm BD Ultra [...] 04/12/20 12:34:00 EDT, Route to Pharmacy Electronically, [facility], 167.64, cm, 04/12/20 4:21:00 EDT, Height, 70, kg... Start Date: 04/12/20 Stop Date: 05/14/20 Status: Ordered valganciclovir 450 mg oral tablet 450 mg, 1, tablet, By Mouth, Daily, # 30 tablet, Refills 0, Tot. Refills 0, Acute 05/14/20 12:35:00EDT, 04/12/20 12:33:00 EDT, Route to Pharmacy Electronically, [facility], 167.64, cm, 04/12/20 4:21:00 EDT, Height, 70, kg, 04/11/20 1... Start Date: 04/12/20 Stop Date: 05/14/20 Status: Ordered Problem List Condition Effective Dates Status Health Status Inform ant ESRD on hemodialysis(Confirmed) Active Diabetes mellitus(Confirmed) Active Hearing loss(Confirmed) 1 Active HTN (hypertension)(Confirmed) Active ADAM (obstructive sleep apnea)(Confirmed) Active Care Management [facility] Diann [phone](Confirmed) Active Subclinical hypothyroidism(Confirmed) Active 1Weighed 1.5 pounds at . 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 Results Orders for Microbiology Reports Name Date Sterile Body Fluid Culture W/ Gram Smear (STERILE FLUID CULT.) 04/11/20 Urine Culture (URINE CULTURE) 04/11/20 Microbiology Reports TEST:Sterile Fluid Culture STATUS:Auth (Verified) BODY SITE: SOURCE:OTHER COLLECTED DATE/TIME:04/11/20 8:05 PM Sterile Fluid Culture SPECIMEN DESCRIPTION : OTHER DONOR KIDNEY FLUID SPECIAL REQUESTS : NONE GRAM STAIN : NOT DONE CULTURE : NO GROWTH 2 DAYS REPORT STATUS : FINAL 04/14/2020 TEST:Urine Culture STATUS:Auth (Verified) BODY SITE: SOURCE:URINE COLLECTED DATE/TIME:04/11/20 7:12 PM Urine Culture SPECIMEN DESCRIPTION : URINE CLEAN CATCH/MIDSTREAM SPECIAL REQUESTS : NONE CULTURE : NO GROWTH REPORT STATUS : FINAL 04/12/2020 Radiology Reports * Exam Date Time Procedure Performing Provider Status 04/11/20 4:07 PM Chest 2 Views Frontal and Lat Jennifer Fitzgerald; Auth (Verified) Notes: (Chest 2 Views Frontal and Lat) Reason For Exam: Preop RESULT: Chest 2 Views Frontal and Lat Chest 2 Views Frontal and Lat INDICATION / CLINICAL QUESTION: Preop renal transplant COMPARISON: 09/24/2019 FINDINGS: LINES AND TUBES: None. LUNGS AND PLEURA: Clear lungs. Normal pulmonary vascularity. No pleural effusion. No pneumothorax. HEART, MEDIASTINUM AND JASON: Normal. BONES AND SOFT TISSUES: Normal. IMPRESSION: Normal. WSN: [id number] Ordering Physician: December Dictated By: Lalo Lynn MD Dictated Date/Time: 04/11/20 4:25 pm Reviewed By: Lalo Lynn MD Signed By: Lalo Lynn MD Signed Date/Time: 04/11/20 4:25 pm Transcribed By: AMANDA Transcribed Date/Time: 04/11/20 4:24 pm Vital Signs Most recent to oldest [Reference Range]: 1 2 3 Height 167.64 cm (04/14/20 3:37 PM) 167.64 cm (04/14/20 11:29 AM) 167.64 cm (04/14/20 7:26 AM) Weight 74.55 kg (04/14/20 6:17 AM) 74.9 kg (04/13/20 6:47 AM) 75.5 kg (04/12/20 6:00 AM) Oxygen Saturation [94-100 %] 96 % (04/14/20 3:37 PM) 98 % (04/14/20 11:29 AM) 94 % (04/14/20 7:26 AM) Pulse Rate [55-90 bpm] 69 bpm (04/14/20 3:37 PM) 67 bpm (04/14/20 11:29 AM) 68 bpm (04/14/20 8:46 AM) Body Mass Index [18.5-24.99] 25.3 *H* (04/11/20 6:16 PM) 25.3 *H* (04/11/20 2:10 PM) Blood Pressure [90-138/55-84 mm Hg] 162/71mm Hg *H* (04/14/20 3:37 PM) 139/72mm Hg *H* (04/14/20 11:29 AM) 177/84mm Hg *H* (04/14/20 10:44 AM) Respiratory Rate [16-30 br/min] 20 br/min (04/14/20 4:35 PM) 18 br/min (04/14/20 3:37 PM) 20 br/min (04/14/20 11:45 AM) Temperature [96.8-100.4 DegF] 97.6 DegF (04/14/20 3:37 PM) 97.8 DegF (04/14/20 11:29 AM) 98.4 DegF (04/14/20 7:26 AM) Liters per Minute 3 L/min (04/12/20 7:00 AM) 3 L/min (04/12/20 4:21 AM) 3 L/min (04/12/20 3:49 AM) Mode of Delivery (Oxygen) Room air (04/14/20 3:37 PM) Room air (04/14/20 11:29 AM) Room air (04/14/20 7:26 AM) Blood pressure sites Arm, left (04/14/20 3:37 PM) Arm, left (04/14/20 11:29 AM) Arm, left (04/14/20 7:26 AM) Temperature Route Oral (04/14/20 3:37 PM) Oral (04/14/20 11:29 AM) Oral (04/14/20 7:26 AM) Dry Weight 70 kg (04/11/20 2:10 PM) Weight Obtained Via Standing scale (04/14/20 6:17 AM) Standing scale (04/13/20 6:47 AM) Standing scale (04/12/20 6:00 AM) Social History Social History Type Response Smoking Status Never smoker; Tobacc o user in household: No entered on: 09/12/15 Sex
--- OUTSIDE RECORDS SUMMARY | 2023-06-19 12:41 | XMS_ITS | Continuity of Care Document ---
Author Name Unknown Organization [facility] ter Address [address] [place] [address]- Care Team Providers Care Black Leather Trimmer Name Role Phone Arleen Cooper MD Primary Care Physician [phone] [place] [facility] [place]): [place]22 - 12/20/[address] [address]- Encounter Diagnosis Head injury, laceration(Final) - 12/20/22 Head injury, laceration(Final) - 12/20/22 Discharge Disposition: A-D/C Home Attending Physician: Bethanie Mejias MD Admitting Physician: Bethanie Mejias MD Referring Physician: Not on Staff, Referring MD Allergies, Adverse Reactions, Alerts Substance Reaction Severity Status ibuprofen decreased kidney function Ac tive aspirin decresed kidney function Act nina Toradol 1 decreased kidney function Ac tive Robaxin itching Active Valium difficulty breathing Active Vicodin itching Active 1Pt states he is not allergic to this medication Immunizations Given and Recorded Vaccine Date Status Refusal Reason [id number] 12y+ bivalent booster vax 1 07/17/22 Given [...] 11/25/22 Status: Ordered B-D PEN NDL MINI [id number](12/11)PRPL USE DIRECTED FOR TYPE 1 DIABETES Start Date: 11/25/22 Status: Ordered Baqsimi One Pack 3 mg nasal powder See Instructions, 3 mg Once In one nostril; dose does not need to be inhaled may repeat in 15 minutes alternate nostrils, # 1 each, 5 Refills, Soft Stop, 09/19/22 22:47:00 EST, [facility] #[id number], Partial fill upon patient request if the [...] tablet, 11 Refills, Maintenance, 10/17/22 12:12:00 EST, [facility] #[id number], 30, TAKE 1 TABLET BY MOUTH EVERY DAY, 168, cm, 09/19/22 14:56:00 EST, Height, 60.2, kg, 07/24/22 0:30:00 EDT, Dry Weight Start Date: 10/17/22 Status: Ordered FLUoxetine 20 mg oral capsule 1, capsule, By Mouth, Daily, # 30 capsule, Refills 11, Maintenance, 09/30/22 13:35:00 EST, Route toPharmacy Electronically, [facility] #[id number], 168, cm, 09/19/22 14:56:00 EST, Height, 60.2,kg, [...] 09/02/22 15:33:00 EST, Route to Pharmacy Electronically, [facility] #[id number], 168, cm, 07/30/22 15:53:00 EDT, Height, 60.2, kg, 07/24/22 0:30:00 EDT, Dry Weight Start Date: 09/02/22 Status: Ordered glucose 4 gm oral tablet, chewable 4 tablet = 16 Gm, Chew, Once, PRN as needed for low blood sugar, # 50 tablet, 0 Refills, Soft Stop,09/19/22 22:51:00 EST, Chew Tablet, [facility] #[id number], Partial fill upon patient request if the prescription is for a schedule II opioid drug... Start Date: 09/19/22 Status: Ordered Golytely - oral powder for reconstitution See Instructions, Drink 240mL every 15 minutes until gone, # 4,000 mL, 0 Refills, Maintenance, 12/03/22 9:00:00 EST, [facility] #[id number], Partial fill upon patient request if the prescriptionis for a schedule II opioid drug., Drink 240mL ever... Start Date: 12/03/22 Status: Ordered Lantus Solostar Pen 100 units/mL subcutaneous solution INJECT 18 UNITS UNDER THE SKIN EVERY NIGHT AT BEDTIME Start Date: 11/25/22 Status: Ordered levothyroxine 0.025 mg oral tablet 1.5 tablet, By Mouth, Daily, # 135 tablet, 0 Refills, [facility] #[id number], 167.64, cm, 01/23/22 11:51:00 EDT, Height, 63.7, [...] opioid drug. Start Date: 11/25/22 Status: Ordered Pen Pattison, 31 G x 5 mm BD Ultra [...] 0 Refills, Maintenance, 06/28/22 11:25:00 EDT, Tablet, [facility] #[id number], Partial fill upon patient request if the [...] GIVEN HE IS ON ANTI REJECTION TREATMENT [facility] TRANS[facility] REJECTION Start Date: 11/25/22 Status: Ordered tacrolimus 1 mg oral tablet, extended release = 8 mg, By Mouth, Daily in AM, Please take tacrolimus 8 mg PO daily in AM and f/u with nephrologistfor level monitoring and dose adjustment., # 30 tablet, 0 Refills, Maintenance, 07/10/22 12:57:00 EDT, XR Tablet, [facility] #[id number], Partial... Start Date: 07/10/22 Stop Date: 08/09/22 Status: Ordered tamsulosin 0.4 mg oral capsule 0.4 mg, 1, capsule, By Mouth, Daily, # 30 capsule, Refills 0, Tot. Refills 0, Maintenance, :30:00 EDT, Route to Pharmacy Electronically, [facility] #[id number], Partial fill upon patient request if the prescription is for a schedule II... Start Date: 07/21/22 Status: Ordered valganciclovir 450 mg oral tablet 450 mg, 1, tablet, By Mouth, Every Thursday, Thursday and Thursday, # 26 tablet, Refills 1, Tot. Refills 1, Maintenance, 06/28/22 11:26:00 EDT, Route to Pharmacy Electronically, [facility] #[id number], Partial fill upon patient request if the [...] sleep apnea) Confirmed Active [facility] Vernell Mckenzie [phone] Confirmed Active Subclinical hypothyroidism Confirmed Active 1Weighed 1.5 pounds at . 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 Results Radiology Reports * Exam Date Time Procedure Performing Provider Status 12/20/22 5:[address] Cervical Spine W/O Contrast Zayra Singh; Auth (Verified) Notes: (CT Cervical Spine W/O Contrast) Reason For Exam: Neck trauma, dangerous injury mechanism;Other: RESULT: CT Cervical Spine W/O Contrast CT Head/Brain W/O Contrast, CT Cervical Spine W/O Contrast Hx of Present Illness: pt with hx of ortostatic hypotension, had a fall at the gym , pt states he got out of the pool felt dizzy sat down and fell out of the chair hitting back of his head, unknown LOC , no blood thinners; Reason: Trauma; Clinical Question(s): Subarachnoid Hemorrhage; Order Comment: COMPARISON: CT from 07/06/2022 TECHNIQUE: Incremental CT without contrast through the head was formatted in axial and coronal plane. Spiral CT without contrast through the cervical spine was formatted in 3 planes. Automatic tube modulation was used for the cervical spine and iterative dose reconstruction was used for both the head and cervical spine to optimize scan parameters and image quality. CTDIvol Body: 12.80 mGy, DLP Body: 322 mGy*cm. CTDIvol Head: 41.80 mGy, DLP Head: 672 mGy*cm. FINDINGS: [employer] Findings, Lines and Tubes: None. HEAD: BRAIN and EXTRA-AXIAL SPACES: No parenchymal hemorrhage, midline shift or mass effect. Moore-white matter differentiation is well preserved. No acute infarct. Negative insular ribbon and hyperdense vessel signs. Ventricles, sulci and basilar cisterns are normal. No white matter lesions. No subarachnoid hemorrhage, subdural or epidural collections. CALVARIUM, SKULL BASE AND SOFT TISSUES: No fractures or suspicious bony lesions. Mild vertex scalp soft tissue swelling and skin viki. The paranasal sinuses and mastoid air cells are clear. Visualized orbits and globes are intact. The extracranial soft tissues are unremarkable. CERVICAL SPINE: No fracture or acute malalignment. Normal alignment. No locked or perched facet. Intervertebral discs are normal. OTHER BONES: Normal. CERVICAL SOFT TISSUES AND LUNG APICES: Unremarkable. Clear lung apices. IMPRESSION: Scalp soft tissue injury. No acute intracranial pathology. No cervical fracture or malalignment. WSN: [id number] Ordering Physician: Calvin Vasquez Dictated By: Charisma Hale MD Dictated Date/Time: 12/20/22 5:29 pm Reviewed By: Charisma Hale MD Signed By: Charisma Hale MD Signed Date/Time: 12/20/22 5:29 pm Transcribed By: AMANDA Transcribed Date/Time: 12/20/22 5:17 pm * Exam Date Time Procedure Performing Provider Status 12/20/22 5:[address] Head/Brain W/O Contrast Zayra Mccabe; Auth (Verified) Notes: (CT Head/Brain W/O Contrast) Reason For Exam: Trauma RESULT: CT Head/Brain W/O Contrast CT Head/Brain W/O Contrast, CT Cervical Spine W/O Contrast Hx of Present Illness: pt with hx of ortostatic hypotension, had a fall at the gym , pt states he got out of the pool felt dizzy sat down and fell out of the chair hitting back of his head, unknown LOC , no blood thinners; Reason: Trauma; Clinical Question(s): Subarachnoid Hemorrhage; Order Comment: COMPARISON: CT from 07/06/2022 TECHNIQUE: Incremental CT without contrast through the head was formatted in axial and coronal plane. Spiral CT without contrast through the cervical spine was formatted in 3 planes. Automatic tube modulation was used for the cervical spine and iterative dose reconstruction was used for both the head and cervical spine to optimize scan parameters and image quality. CTDIvol Body: 12.80 mGy, DLP Body: 322 mGy*cm. CTDIvol Head: 41.80 mGy, DLP Head: 672 mGy*cm. FINDINGS: [employer] Findings, Lines and Tubes: None. HEAD: BRAIN and EXTRA-AXIAL SPACES: No parenchymal hemorrhage, midline shift or mass effect. Moore-white matter differentiation is well preserved. No acute infarct. Negative insular ribbon and hyperdense vessel signs. Ventricles, sulci and basilar cisterns are normal. No white matter lesions. No subarachnoid hemorrhage, subdural or epidural collections. CALVARIUM, SKULL BASE AND SOFT TISSUES: No fractures or suspicious bony lesions. Mild vertex scalp soft tissue swelling and skin viki. The paranasal sinuses and mastoid air cells are clear. Visualized orbits and globes are intact. The extracranial soft tissues are unremarkable. CERVICAL SPINE: No fracture or acute malalignment. Normal alignment. No locked or perched facet. Intervertebral discs are normal. OTHER BONES: Normal. CERVICAL SOFT TISSUES AND LUNG APICES: Unremarkable. Clear lung apices. IMPRESSION: Scalp soft tissue injury. No acute intracranial pathology. No cervical fracture or malalignment. WSN: [id number] Ordering Physician: Calvin Vasquez Dictated By: Charisma Hale MD Dictated Date/Time: 12/20/22 5:29 pm Reviewed By: Charisma Hale MD Signed By: Charisma Hale MD Signed Date/Time: 12/20/22 5:29 pm Transcribed By: AMANDA Transcribed Date/Time: 12/20/22 5:17 pm Vital Signs Most recent to oldest [Reference Range]: 1 2 3 Weight 72.7 kg (12/20/22 2:52 PM) 72.7 kg (12/20/22 2:23 PM) Oxygen Saturation [94-100 %] 94 % (12/20/22 5:27 PM) 97 % (12/20/22 2:52 PM) 87 % *L* (12/20/22 2:23 PM) Pulse Rate [55-90 bpm] 92 bpm *H* (12/20/22 5:27 PM) 77 bpm (12/20/22 2:52 PM) 83 bpm (12/20/22 2:23 PM) Blood Pressure [90-138/55-84 mm Hg] 187/83mm Hg *H* (12/20/22 5:27 PM) 173/73mm Hg *H* (12/20/22 2:52 PM) 167/83mm Hg *H* (12/20/22 2:23 PM) Respiratory Rate [16-30 br/min] 18 br/min (12/20/22 5:27 PM) 16 br/min (12/20/22 2:52 PM) 18 br/min (12/20/22 2:23 PM) Temperature [96.8-100.4 DegF] 98.7 DegF (12/20/22 5:27 PM) 97.8 DegF (12/20/22 2:52 PM) 97.7 DegF (12/20/22 2:23 PM) Mode of Delivery (Oxygen) Room air (12/20/22 5:27 PM) Room air (12/20/22 2:52 PM) Room air (12/20/22 2:23 PM) Blood pressure sites Arm, left (12/20/22 5:27 PM) Arm, left (12/20/22 2:52 PM) Arm, left (12/20/22 2:23 PM) Temperature Route Oral (12/20/22 5:27 PM) Oral (12/20/22 2:52 PM) Oral (12/20/22 2:23 PM) Dry Weight 72.7 kg (12/20/22 2:52 PM) 72.7 kg (12/20/22 2:23 PM) Dry Weight Obtained Via Patient/family s tated (12/20/22 2:23 PM) Social History Social History Type Response Smoking Status Never smoker; Tobacc o user in household: No entered on: 09/12/[address] Cervical spine WO contrast * [facility] , CIS S: TRANSCRIBE Alexia CLARKE, Charisma J: VERIFY Event Display: Result: Authored Date: [id number] CT Head/Brain W/O Contrast, CT Cervical Spine W/O Contrast Hx of Present Illness: pt with hx of ortostatic hypotension, had a fall at the gym , pt states he got out of the pool felt dizzy sat down and fell out of the chair hitting back of his head, unknown LOC , no blood thinners; Reason: Trauma; Clinical Question(s): Subarachnoid Hemorrhage; Order Comment: COMPARISON: CT from 07/06/2022 TECHNIQUE: Incremental CT without contrast through the head was formatted in axial and coronal plane. Spiral CT without contrast through the cervical spine was formatted in 3 planes. Automatic tube modulation was used for the cervical spine and iterative dose reconstruction was used for both the head and cervical spine to optimize scan parameters and image quality. CTDIvol Body: 12.80 mGy, DLP Body: 322 mGy*cm. CTDIvol Head: 41.80 mGy, DLP Head: 672 mGy*cm. FINDINGS: [employer] Findings, Lines and Tubes: None. HEAD: BRAIN and EXTRA-AXIAL SPACES: No parenchymal hemorrhage, midline shift or mass effect. Moore-white matter differentiation is well preserved. No acute infarct. Negative insular ribbon and hyperdense vessel signs. Ventricles, sulci and basilar cisterns are normal. No white matter lesions. No subarachnoid hemorrhage, subdural or epidural collections. CALVARIUM, SKULL BASE AND SOFT TISSUES: No fractures or suspicious bony lesions. Mild vertex scalp soft tissue swelling and skin viki. The paranasal sinuses and mastoid air cells are clear. Visualized orbits and globes are intact. The extracranial soft tissues are unremarkable. CERVICAL SPINE: No fracture or acute malalignment. Normal alignment. No locked or perched facet. Intervertebral discs are normal. OTHER BONES: Normal. CERVICAL SOFT TISSUES AND LUNG APICES: Unremarkable. Clear lung apices. IMPRESSION: Scalp soft tissue injury. No acute intracranial pathology. No cervical fracture or malalignment. WSN: [id number] Ordering Physician: Calvin Vasquez Dictated By: Charisma Hale MD Dictated Date/Time: 12/20/22 5:29 pm Reviewed By: Charisma Hale MD Signed By: Charisma Hale MD Signed Date/Time: 12/20/22 5:29 pm Transcribed By: AMANDA Transcribed Date/Time: 12/20/22 5:[address] Head WO contrast * [facility] , CIS S: TRANSCRIBE Charisma Hale MD: VERIFY Event Display: Result: Authored Date: [id number] CT Head/Brain W/O Contrast, CT Cervical Spine W/O Contrast Hx of Present Illness: pt with hx of ortostatic hypotension, had a fall at the gym , pt states he got out of the pool felt dizzy sat down and fell out of the chair hitting back of his head, unknown LOC , no blood thinners; Reason: Trauma; Clinical Question(s): Subarachnoid Hemorrhage; Order Comment: COMPARISON: CT from 07/06/2022 TECHNIQUE: Incremental CT without contrast through the head was formatted in axial and coronal plane. Spiral CT without contrast through the cervical spine was formatted in 3 planes. Automatic tube modulation was used for the cervical spine and iterative dose reconstruction was used for both the head and cervical spine to optimize scan parameters and image quality. CTDIvol Body: 12.80 mGy, DLP Body: 322 mGy*cm. CTDIvol Head: 41.80 mGy, DLP Head: 672 mGy*cm. FINDINGS: [employer] Findings, Lines and Tubes: None. HEAD: BRAIN and EXTRA-AXIAL SPACES: No parenchymal hemorrhage, midline shift or mass effect. Moore-white matter differentiation is well preserved. No acute infarct. Negative insular ribbon and hyperdense vessel signs. Ventricles, sulci and basilar cisterns are normal. No white matter lesions. No subarachnoid hemorrhage, subdural or epidural collections. CALVARIUM, SKULL BASE AND SOFT TISSUES: No fractures or suspicious bony lesions. Mild vertex scalp soft tissue swelling and skin viki. The paranasal sinuses and mastoid air cells are clear. Visualized orbits and globes are intact. The extracranial soft tissues are unremarkable. CERVICAL SPINE: No fracture or acute malalignment. Normal alignment. No locked or perched facet. Intervertebral discs are normal. OTHER BONES: Normal. CERVICAL SOFT TISSUES AND LUNG APICES: Unremarkable. Clear lung apices. IMPRESSION: Scalp soft tissue injury. No acute intracranial pathology. No cervical fracture or malalignment. WSN: [id number] Ordering Physician: Calvin Vasquez Dictated By: Charisma Hale MD Dictated Date/Time: 12/20/22 5:29 pm Reviewed By: Charisma Hale MD Signed By: Charisma Hale MD Signed Date/Time: 12/20/22 5:29 pm Transcribed By: AMANDA Transcribed Date/Time: 12/20/22 5:17 pm Patient Care team information Care Team Personnel Name: Desmond Anton RN Position: S RN Member Role: Primary Care Nurse Name: Eliza Ch RN Position: S RN Member Role: Primary Care Nurse Name: Izzy Cooper Position: [facility] RN Member Role: Primary Care Nurse Name: Elie Alex MD Position: [facility] Renal MD Member Role: Lifetime Consulting Physician Address: Address: [address] [place] [address], [address] [facility] [place] [address]- Name: Rayray Brand Position: [facility] Physician (General Medicine) Member Role: Primary Care Nurse Name: Liudmila Hinds Position: [facility] RN Member Role: Primary Care Nurse Name: Kannan Gibbs RN Position: [facility] RN Member Role: Primary Care Nurse Name: Chase Brumfield RN Position: [facility] ED RN W/OE and Tasks Member Role: Primary Care Nurse Name: Link Stein RN Position: [facility] RN Supv Member Role: Primary Care Nurse Name: Isai Weaver DO Position: [facility] Renal MD Member Role: Lifetime Consulting Physician Address: Address: [address] [place], [place] [address] [place] [address]- Name: Lor Abdullahi RN Position: [facility] RN Member Role: Primary Care Nurse Name: Charity Billings RN Position: [facility] RN Member Role: Primary Care Nurse Name: Trae Hawkins III, RN Position: [facility] RN Member Role: Primary Care Nurse Name: Yamini Soares Position: [facility] RN Member Role: Primary Care Nurse Name: Marcus Ardon RN Position: [facility] RN Member Role: Primary Care Nurse Name: Jaison Sherwood MD Position: [facility] Renal MD Member Role: Lifetime Consulting Physician Address: Address: [address] [place] [address] [address] [facility] [place] [address]- [place] Name: Anna White RN Position: [facility] AMB Nurse Member Role: Primary Care Nurse Name: Marleny Sanchez RN Position: [facility] RN Member Role: Primary Care Nurse Name: Gabriel Chappell MD Position: [facility] Renal MD Member Role: Lifetime Consulting Physician Address: Address: [address] [place] [address] [facility] [place] [address]- [place] Name: Muriel Page RN Position: [facility] SN RN Member Role: Primary Care Nurse Name: Marielena Sheehan RN Position: [facility] RN Member Role: Primary Care Nurse Name: Nadia Hernandez RN Position: [facility] RN Member Role: Primary Care Nurse Name: Alyssa Nguyen RN Position: [facility] RN Member Role: Primary Care Nurse Name: Елена Jules RN Position: [facility] RN Member Role: Primary Care Nurse Name: Arleen Cooper MD Position: [facility] Primary Care Physician Member Role: PCP Address: Address: [address] [place] [address]- Name: Trae Magallon MD Position: [facility] ED Medicine MD Member Role: ED Attending Physician Address: Address: [address] [place] [address]- Name: Cheryle Murry Position: [facility] Associate Professional Member Role: ED Physician Special Day Class Teacher Address: Address: [address] [place] [address]- Name: Yaima Montano RN Position: [facility] ED RN W/OE and Tasks Member Role: Patient Care Provider Name: Ailyn Mejia Position: [facility] ED TA [facility] Member Role: Routing Machine Operator Care Team Related Persons Name: CAMI ELIAS Address: home [address] [place] [address] Name: HERMILO PANDA Address: home [address] [address] Name: JACK PANDA Address: home [address] [place] [address]
--- OUTSIDE RECORDS SUMMARY | 2023-06-19 12:41 | XMS_ITS | Continuity of Care Document ---
Author Name Unknown Organization [facility] [place] [address] [place] [address]- Care Team Providers Care Dust Puller Name Role Phone Arleen Cooper MD Primary Care Physician [phone] [id number] - [facility] [address] Attending Physician: Not on Staff, Attending [...] 02/18/21 16:31:00 EDT, Route to Pharmacy Electronically, [email or web address][id number], Partial fill upon patientrequest if the prescription is for a schedule II op... Start Date: 02/18/21 Stop Date: 08/17/21 Status: Ordered B-D PEN NDL SHRT [id number](02/10) COOPER B-D PEN NDL SHRT [id number](02/10) COOPER, See Instructions, # 100 each, 0 [...] 07/18/20 11:05:00 EDT, Route to Pharmacy Electronically, [facility], 167.64, cm, 07/12/20 8:38:00 EDT, Height, 70, kg, 04/11/20 15:19:00... 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 Start Date: 04/19/20 Stop Date: 06/18/20 Status: Ordered Lantus Solostar Pen 100 units/mL subcutaneous solution = 35 units, Subcutaneous Injection, Daily at bedtime, # 12 mL, 11 Refills, Maintenance, 03/12/21 16:28:00 EDT, [facility][id number], 167.64, cm, 02/28/21 10:34:00 EDT, Height, 63.7, kg, 01/30/21 22:32:00 EDT, Dry Weight Start Date: 03/12/21 Status: Ordered levothyroxine 0.025 mg oral tablet 1.5 tablet = 37.5 mcg, By Mouth, Daily, You are due for thyroid lab work. Go to the lab, # 135 tablet, 0 Refills, Maintenance, 06/17/21 5:30:00 EDT, Tablet, [facility], 167.64, cm, 04/04/21 10:55:00 EDT, Height, 63.7, kg, 01/30/21 22:... Start Date: 06/17/21 Status: Ordered Pen [place], 31 G x 5 mm BD Ultra [...] pack/packet, 1 Refills, Maintenance, 06/21/20 16:51:00 EDT, [facility], Deliver to pt in [...] ADAM (obstructive sleep apnea)(Confirmed) Active Care Management [facility] Sarah (Confirmed) Active Subclinical hypothyroidism(Confirmed) Active 1Weighed 1.5 pounds at . 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
--- OUTSIDE RECORDS SUMMARY | 2023-06-19 12:41 | XMS_ITS | Continuity of Care Document ---
Author Name Unknown Organization [facility] Address [address] [place] [address]- Care Team Providers Care Bell Attendant Name Role Phone Arleen Cooper MD Primary Care Physician Encounter [facility] Date(s): 07/17/22 - 08/23/[address] [address]- Attending Physician: Arleen Cooper MD Admitting Physician: [...] and Recorded Vaccine Date Status Refusal Reason [id number] 12y+ bivalent booster vax 1 07/17/22 Given [...] Note: vis Medications B-D PEN NDL SHRT [id number](02/10) COOPER B-D PEN NDL SHRT [id number](02/10) COOPER, See Instructions, # 100 each, 0 [...] 2 Refills, Maintenance, 06/29/22 11:32:00 EDT, Solution, [facility] #[id number], Partial fillupon patient request if the prescription is... Start Date: 06/29/22 Status: Ordered insulin lispro (concentrated) 200 units/mL subcutaneous solution See Instructions, 3 units Subcutaneous Infusion for FSBS of every 100 and 1 unit additional for every 40 above 100, # 12 mL, 3 Refills, Maintenance, 06/29/22 14:22:00 EDT, [facility] #[id number], Partial fill upon patient request if the prescript... Start Date: 06/29/22 Status: Ordered levothyroxine 0.025 mg oral tablet 1.5 tablet, By Mouth, Daily, # 135 tablet, 0 Refills, [facility] #[id number], 167.64, cm, 01/23/22 11:51:00 EDT, Height, 63.7, kg, 01/30/21 22:32:00 EDT, Dry Weight Start Date: 03/27/22 Status: Ordered midodrine 5 mg oral tablet 2, tablet, By Mouth, 3 times a day, # 540 tablet, Refills 0, Maintenance, 08/18/22 9:03:00 EST, Route to Pharmacy Electronically, [facility] #[id number], 168, cm, 07/30/22 15:53:00 EDT, Height, 60.2, kg, 07/24/22 0:30:00 EDT, Dry Weight Start Date: 08/18/22 Status: Ordered multivitamin Multiple Vitamins oral capsule 1 capsule, By Mouth, Daily, # 30 capsule, 0 Refills, Maintenance, 06/28/22 11:24:00 EDT, Capsule, [facility] #[id number], Partial fill upon patient request if the [...] 06/28/22 Stop Date: 07/28/22 Status: Ordered Pen [place], 31 G x 5 mm BD Ultra [...] 0 Refills, Maintenance, 06/28/22 11:25:00 EDT, Tablet, [facility] #[id number], Partial fill upon patient request if the prescription is for a schedule II opioid drug., 167, cm, 06/28/22 8:15:00 EDT,... Start Date: 06/28/22 Status: Ordered PROzac 20 mg oral capsule 20 mg, 1, capsule, By Mouth, Daily, # 30 capsule, Refills 0, Tot. Refills 0, Maintenance, 07/10/22 11:33:00 EDT, Route to Pharmacy Electronically, [facility] #[id number], Partial fill upon patient request if the [...] 09/08/22 11:34:00 EST, 07/10/22 11:34:00 EDT, Tablet, [facility] #[id number]... Start Date: 07/10/22 Stop Date: 09/08/22 Status: Ordered tacrolimus 1 mg oral tablet, extended release = 8 mg, By Mouth, Daily in AM, Please take tacrolimus 8 mg PO daily in AM and f/u with nephrologistfor level monitoring and dose adjustment., # 30 tablet, 0 Refills, Maintenance, 07/10/22 12:57:00 EDT, XR Tablet, [facility] #[id number], Partial... Start Date: 07/10/22 Stop Date: 08/09/22 Status: Ordered tamsulosin 0.4 mg oral capsule 0.4 mg, 1, capsule, By Mouth, Daily, # 30 capsule, Refills 0, Tot. Refills 0, Maintenance, :30:00 EDT, Route to Pharmacy Electronically, [facility] #[id number], Partial fill upon patient request if the prescription is for a schedule II... Start Date: 07/21/22 Status: Ordered valganciclovir 450 mg oral tablet 450 mg, 1, tablet, By Mouth, Every Thursday, Thursday and Thursday, # 26 tablet, Refills 1, Tot. Refills 1, Maintenance, 06/28/22 11:26:00 EDT, Route to Pharmacy Electronically, [facility] #[id number], Partial fill upon patient request if the [...] Active ADAM (obstructive sleep apnea) Confirmed Active [facility] Care Management Addy [facility], Vernell Fabian [phone] Confirmed Active Subclinical hypothyroidism Confirmed Active 1Weighed 1.5 pounds at . 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 Social History Social History Type Response Smoking Status Never smoker; Tobacc o user in household: No entered on: 09/12/15 Sex Patient Care team information Care Team Personnel Name: Desmond Anton RN Position: [facility] RN Member Role: Primary Care Nurse Name: Eliza Ch RN Position: [facility] RN Member Role: Primary Care Nurse Name: Izzy Cooper Position: S RN Member Role: Primary Care Nurse Name: Elie Alex MD Position: [facility] Renal MD Member Role: Lifetime Consulting Physician Address: Address: [address] [place] [address], [address] [facility] [place] [address]- Name: Rayray Brand Position: [facility] Physician (General Medicine) Member Role: Primary Care Nurse Name: Liudmila Hinds Position: [facility] RN Member Role: Primary Care Nurse Name: Kannan Gibbs RN Position: [facility] RN Member Role: Primary Care Nurse Name: Chase Brumfield RN Position: [facility] ED RN W/OE and Tasks Member Role: Primary Care Nurse Name: Sissy Powers RN Position: [facility] RN Member Role: Primary Care Nurse Name: Link Stein RN Position: [facility] RN Supv Member Role: Primary Care Nurse Name: Isai Weaver DO Position: [facility] Renal MD Member Role: Lifetime Consulting Physician Address: Address: [address] [place] [address] [address] [facility] [place] [address]- Name: Lor Abdullahi RN Position: [facility] RN Member Role: Primary Care Nurse Name: Charity Billings RN Position: S RN Member Role: Primary Care Nurse Name: Trae Hawkins III, RN Position: [facility] RN Member Role: Primary Care Nurse Name: Geoffrey Davis RN Position: [facility] RN Member Role: Primary Care Nurse Name: Yamini Soares Position: S RN Member Role: Primary Care Nurse Name: Marcus Ardon RN Position: [facility] RN Member Role: Primary Care Nurse Name: Jaison Sherwood MD Position: [facility] Renal MD Member Role: Lifetime Consulting Physician Address: Address: [address] [place] [address] [address] [facility] [place] [address]- Name: Anna White RN Position: [facility] AMB Nurse Member Role: Primary Care Nurse Name: Marleny Sanchez RN Position: [facility] RN Member Role: Primary Care Nurse Name: Gabriel Chappell MD Position: [facility] Renal MD Member Role: Lifetime Consulting Physician Address: Address: [address] [place] [address] [facility] [place] [address]- Name: Muriel Page RN Position: [facility] SN RN Member Role: Primary Care Nurse Name: Marielena Sheehan RN Position: [facility] RN Member Role: Primary Care Nurse Name: Nadia Hernandez RN Position: [facility] RN Member Role: Primary Care Nurse Name: Alyssa Nguyen RN Position: [facility] RN Member Role: Primary Care Nurse Name: Елена Jules RN Position: [facility] RN Member Role: Primary Care Nurse Name: Arleen Cooper MD Position: [facility] Primary Care Physician Member Role: PCP Address: Address: [address] [place] [address] [place] Care Team Related Persons Name: CAMI ELIAS Address: [address] [place] [address] Name: HERMILO PANDA Address: home [address] [address] Name: JACK PANDA Address: [address] [place] [address]
--- OUTSIDE RECORDS SUMMARY | 2023-06-19 12:41 | XMS_ITS | Continuity of Care Document ---
Author Name Unknown Organization [facility] ter Address [address] [place] [address]- Care Team Providers Care Lumber Buyer Name Role Phone Arleen Cooper MD Primary Care Physician En[place] [facility] [place] Date(s): 02/07/20 - 02/07/[address] [address]- [facility] Discharge Disposition: A-D/C Home Attending Physician: Lilia Larson MD Admitting Physician: Lilia Larson MD Referring Physician: Not on Staff, Referring [...] Tot. Refills 0, Maintenance, to be worn [facility] dx: G47.30 YAMIL: lifetime, 06/23/19 [...] tablet, 2 Refills, Maintenance, 09/27/19 12:25:00 EST,[id number], 168, cm, 09/27/19 11:17:00 EST, Height, 70, [...] Compound Start Date: 06/23/19 Status: Ordered Pen [place], 31 G x 5 mm BD Ultra [...] 1 Active HTN (hypertension)(Confirmed) Active Care Management [facility] Diann [place] [phone](Confirmed) Active Subclinical hypothyroidism(Confirmed) Active 1Weighed 1.5 pounds at . 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 Vital Signs Most recent to oldest [Reference Range]: 1 2 3 Oxygen Saturation [94-100 %] 100 % (02/07/20 5:30 PM) 99 % (02/07/20 12:11 PM) Pulse Rate [55-90 bpm] 70 bpm (02/07/20 5:30 PM) 71 bpm (02/07/20 12:11 PM) Blood Pressure [90-138/55-84 mm Hg] 193/70mm Hg *H* (02/07/20 5:30 PM) 188/77mm Hg *H* (02/07/20 2:54 PM) 182/87mm Hg *H* (02/07/20 12:11 PM) Respiratory Rate [16-30 br/min] 16 br/min (02/07/20 5:30 PM) 16 br/min (02/07/20 12:11 PM) Temperature [96.8-100.4 DegF] 97.6 DegF (02/07/20 12:11 PM) Mode of Delivery (Oxygen) Room air (02/07/20 5:30 PM) Room air (02/07/20 12:11 PM) Blood pressure sites Arm, left (02/07/20 5:30 PM) Arm, left (02/07/20 12:11 PM) Temperature Route Oral (02/07/20 12:11 PM) Social History Social History Type Response Smoking Status Never smoker; Tobacc o user in household: No entered on: 09/12/15 Sex
--- OUTSIDE RECORDS SUMMARY | 2023-06-19 12:41 | XMS_ITS | Continuity of Care Document ---
Author Name Unknown Organization [facility] Address [address] [place] [address]- Care Team Providers Care Boot And Shoe Laborer Name Role Phone Arleen Cooper MD Primary Care Physician [phone] [place] [facility] [place] Date(s): 03/28/22 - 04/27/[address] [address] Attending Physician: Admjessie, [place] Admitting Physician: Admtr, [...] 02/18/21 16:31:00 EDT, Route to Pharmacy Electronically, [facility] #[id number], Partial fill upon patientrequest if the prescription is for a schedule II op... Start Date: 02/18/21 Stop Date: 08/17/21 Status: Ordered B-D PEN NDL SHRT [id number](02/10) COOPER B-D PEN NDL SHRT [id number](02/10) COOPER, See Instructions, # 100 each, 0 [...] 07/18/20 11:05:00 EDT, Route to Pharmacy Electronically, [facility], 167.64, cm, 07/12/20 8:38:00 EDT, Height, 70, kg, 04/11/20 15:19:00... Start Date: 07/18/20 Stop Date: 08/17/20 Status: Ordered Envarsus XR 1 mg oral tablet, extended release 4 tablet = 4 mg, By Mouth, Daily in AM, # 240 tablet, 0 Refills, Maintenance, 04/12/20 12:33:00 EDT, [facility], 167.64, cm, 04/12/20 4:21:00 [...] 01/23/22 16:09:00 EDT, Route to Pharmacy Electronically, [facility] #[id number], Partial fill upon patient request if the prescription is for a jana... Start Date: 01/23/22 Status: Ordered Kayexcelate Powder Kayexcelate Powder, 30 grams, By Mouth, Daily, # 454 Gm, Refills 1, Tot. 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 Start Date: 04/19/20 Stop Date: 06/18/20 Status: Ordered Lantus Solostar Pen 100 units/mL subcutaneous solution = 35 units, Subcutaneous Injection, Daily at bedtime, # 12 mL, 11 Refills, Maintenance, 01/18/22 14:50:00 EDT, [facility] #[id number], 167.64, cm, 01/09/22 13:27:00 EDT, Height, 63.7, kg, 01/30/21 22:32:00 EDT, Dry Weight Start Date: 01/18/22 Status: Ordered levothyroxine 0.025 mg oral tablet 1.5 tablet, By Mouth, Daily, # 135 tablet, 0 Refills, [facility] #[id number], 167.64, cm, 01/23/22 11:51:00 EDT, Height, 63.7, kg, 01/30/21 22:32:00 EDT, Dry Weight Start Date: 03/27/22 Status: Ordered Pen [place], 31 G x 5 mm BD Ultra [...] (obstructive sleep apnea)(Confirmed) Active N Care Management [facility] , Vernell Rui [phone](Confirmed) Active Subclinical hypothyroidism(Confirmed) Active 1Weighed 1.5 pounds at . 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
--- OUTSIDE RECORDS SUMMARY | 2023-06-19 12:41 | XMS_ITS | Continuity of Care Document ---
Author Name Unknown Organization [facility] ter Address [address] [place] [address]- Care Team Providers Care Networks Software Consultant Name Role Phone Arleen Cooper MD Primary Care Physician Encounter [facility] [place] Date(s): 03/05/20 - 03/05/[address] [address]- [facility] Discharge Disposition: A-D/C Home Attending Physician: Irvin Hampton MD Admitting Physician: Irvin Hampton MD Referring Physician: Irvin Hampton MD Allergies, Adverse Reactions, Alerts Substance Reaction [...] 02/18/20 16:04:00 EDT, Route to Pharmacy Electronically, [facility] #[id number], 168, cm, 09/27/19 11:17:00 EST, Height, 71, [...] tablet, 2 Refills, Maintenance, 09/27/19 12:25:00 EST,Tablet, [facility] #[id number], 168, cm, 09/27/19 11:17:00 EST, Height, 70, kg, 09/24/19 17:59:00 EST, Dry Weight Start Date: 09/27/19 Status: Ordered lisinopril 40 mg oral tablet 1 tablet = 40 mg, By Mouth, Daily, # 30 tablet, 0 Refills, Maintenance, 09/13/19 10:28:54 EST, Tablet Start Date: 09/13/19 Status: Ordered oxyCODONE 5 mg oral tablet 5 mg, 1, tablet, By Mouth, Every 6 hours, PRN, for 2 days, # 7 tablet, Refills 0, Tot. Refills 0, Acute 03/07/20 15:14:00 EDT, as needed for pain, 03/05/20 15:14:00 EDT, [facility], Partial fill upon patient request Start Date: 03/05/20 Stop Date: 03/07/20 Status: Ordered Pen [place], 31 G x 5 mm BD Ultra [...] ADAM (obstructive sleep apnea)(Confirmed) Active Care Management [facility] Diann [phone](Confirmed) Active Subclinical hypothyroidism(Confirmed) Active 1Weighed 1.5 pounds at . 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 Vital Signs Most recent to oldest [Reference Range]: 1 2 3 Weight 71.5 kg (03/05/20 1:26 PM) Oxygen Saturation [94-100 %] 95 % (03/05/20 3:45 PM) 93 % *L* (03/05/20 3:30 PM) 93 % *L* (03/05/20 3:15 PM) Pulse Rate [55-90 bpm] 70 bpm (03/05/20 1:26 PM) Blood Pressure [90-138/55-84 mm Hg] 156/84mm Hg *H* (03/05/20 3:45 PM) 147/81mm Hg *H* (03/05/20 3:30 PM) 126/68mm Hg (03/05/20 3:15 PM) Respiratory Rate [16-30 br/min] 16 br/min (03/05/20 3:45 PM) 18 br/min (03/05/20 1:26 PM) Temperature [96.8-100.4 DegF] 97.8 DegF (03/05/20 3:15 PM) 98.6 DegF (03/05/20 1:26 PM) Mode of Delivery (Oxygen) Room air (03/05/20 4:30 PM) Room air (03/05/20 3:45 PM) Room air (03/05/20 3:30 PM) Blood pressure sites Arm, left (03/05/20 1:26 PM) Temperature Route Temporal (03/05/20 3:15 PM) Temporal (03/05/20 1:26 PM) Dry Weight 71.5 kg (03/05/20 1:26 PM) Weight Obtained Via Standing scale (03/05/20 1:26 PM) Dry Weight Obtained Via Standing scale (03/05/20 1:26 PM) Social History Social History Type Response Smoking Status Never smoker; Tobacc o user in household: No entered on: 09/12/15 Sex
--- OUTSIDE RECORDS SUMMARY | 2023-06-19 12:41 | XMS_ITS | Continuity of Care Document ---
Author Name Unknown Organization [facility] Address [address] [place] [address]- Care Team Providers Care Wreath Machine Operator Name Role Phone Arleen Cooper MD Primary Care Physician [phone] [place] [facility] [place]19[place] - 07/19/[address] [address]- [facility] Allergies, Adverse Reactions, Alerts Substance Reaction [...] 09/30/20 9:23:00 EST, 04/30/20 9:21:00 EDT, Tablet, [facility], 1 tablet By Mouth Daily, [...] 07/18/20 11:05:00 EDT, Route to Pharmacy Electronically, [facility], 167.64, cm, 07/12/20 8:38:00 EDT, Height, 70, kg, 04/11/20 15:19:00... Start Date: 07/18/20 Stop Date: 08/17/20 Status: Ordered Envarsus XR 1 mg oral tablet, extended release 8 tablet = 8 mg, By Mouth, Daily in AM, # 240 tablet, 11 Refills, Maintenance, 04/30/20 9:22:00 EDT, [facility], 167.64, cm, 04/30/20 8:23:00 EDT, Height, 70, kg, 04/11/20 15:19:00 EDT, Dry Weight Start Date: 04/30/20 Status: Ordered Envarsus XR 1 mg oral tablet, extended release 4 tablet = 4 mg, By Mouth, Daily in AM, # 240 tablet, 0 Refills, Maintenance, 04/12/20 12:33:00 EDT, [facility], 167.64, cm, 04/12/20 4:21:00 EDT, [...] & tomorrow, 04/19/20 15:08:00 EDT, 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 Start Date: 04/19/20 Stop Date: 06/18/20 Status: Ordered Lantus Solostar Pen 100 units/mL subcutaneous solution = 30 units, Subcutaneous Injection, Daily at bedtime, # 10 mL, 11 Refills, Maintenance, 04/17/20 16:49:00 EDT, [facility] #[id number], 167.64, cm, 04/16/20 8:56:00 EDT, Height, 70, kg, 04/11/20 15:19:00 EDT, Dry Weight Start Date: 04/17/20 Status: Ordered levothyroxine 0.025 mg oral tablet 1.5 tablet = 37.5 mcg, By Mouth, Daily, # 45 tablet, 11 Refills, Maintenance, 04/18/20 17:51:00 EDT, Tablet, [facility] #[id number], 167.64, cm, 04/16/20 8:56:00 EDT, Height, 70, kg, 04/11/20 15:19:00 EDT, Dry Weight Start Date: 04/18/20 Status: Ordered Pen [place], 31 G x 5 mm BD Ultra [...] 9:22:00 EDT, Route to Pharmacy Electronically, [facility], 167.64, cm, 04/30/20 8:23:00 EDT, Height, 70, kg, 04/11/20 15:... Start Date: 04/30/20 Stop Date: 09/30/20 Status: Ordered [place] 16.8 g oral powder for reconstitution = 16.8 Gm, By Mouth, 2 times a day, # 60 pack/packet, 1 Refills, Maintenance, 06/21/20 16:51:00 EDT, [facility], Deliver to pt in [...]
--- OUTSIDE RECORDS SUMMARY | 2023-06-19 12:41 | XMS_ITS | Continuity of Care Document ---
Author Name Unknown Organization [facility] Address [address] [place] [address]- Care Team Providers Care Front Line Supervisor Name Role Phone Arleen Cooper MD Primary Care Physician [phone] [place] [facility] [place]17[place] - 04/16/[address] [address]- Allergies, Adverse Reactions, Alerts Substance Reaction Severity [...] 02/18/21 16:31:00 EDT, Route to Pharmacy Electronically, [facility] #[id number], Partial fill upon patientrequest if the prescription is for a schedule II op... Start Date: 02/18/21 Stop Date: 08/17/21 Status: Ordered B-D PEN NDL SHRT [id number](02/10) COOPER B-D PEN NDL SHRT [id number](02/10) COOPER, See Instructions, # 100 each, 0 [...] mL, 11 Refills, Maintenance, 03/12/21 16:28:00 EDT, [facility] #[id number], 167.64, cm, 02/28/21 10:34:00 EDT, Height, 63.7, kg, 01/30/21 22:32:00 EDT, Dry Weight Start Date: 03/12/21 Status: Ordered levothyroxine 0.025 mg oral tablet 1.5 tablet = 37.5 mcg, By Mouth, Daily, # 135 tablet, 0 Refills, Maintenance, 03/27/21 10:58:00 EDT, Tablet, [facility], 167.64, cm, 02/28/21 10:34:00 EDT, Height, 63.7, kg, 01/30/2122:32:00 EDT, Dry Weight Start Date: 03/27/21 Status: Ordered Pen [place], 31 G x 5 mm BD Ultra [...] ADAM (obstructive sleep apnea)(Confirmed) Active Care Management [facility] Sarah (Confirmed) Active Subclinical hypothyroidism(Confirmed) Active 1Weighed 1.5 pounds at . 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
--- OUTSIDE RECORDS SUMMARY | 2023-06-19 12:41 | XMS_ITS | Continuity of Care Document ---
Author Name Unknown Organization [facility] Address [address] [place] [address]- Care Team Providers Care Apigee Developer Name Role Phone Kenneth CLARKE, Arleen Primary Care Physician [phone] Encounter [facility] Date(s): 12/31/22 - 01/30/23 [facility] [address] [place] [id number] Allergies, Adverse Reactions, Alerts Substance Reaction Severity Status ibuprofen decreased kidney function Ac tive aspirin decresed kidney function Act nina Toradol 1 decreased kidney function Ac tive Robaxin itching Active Valium difficulty breathing Active Vicodin itching Active 1Pt states he is not allergic to this medication Immunizations Given and Recorded Vaccine Date Status Refusal Reason [id number] 12y+ bivalent booster vax 1 07/17/22 Given [...] 11/25/22 Status: Ordered B-D PEN NDL MINI [id number](12/11)PRPL USE DIRECTED FOR TYPE 1 DIABETES Start Date: 11/25/22 Status: Ordered Baqsimi One Pack 3 mg nasal powder See Instructions, 3 mg Once In one nostril; dose does not need to be inhaled may repeat in 15 minutes alternate nostrils, # 1 each, 5 Refills, Soft Stop, 09/19/22 22:47:00 EST, [facility] #[id number], Partial fill upon patient request if the [...] Maintenance, 09/30/22 13:35:00 EST, Route toPharmacy Electronically, [facility] #[id number], 168, cm, 09/19/22 14:56:00 EST, Height, 60.2,kg, [...] Refills, Soft Stop,09/19/22 22:51:00 EST, Chew Tablet, [facility] #[id number], Partial fill upon patient request if the prescription is for a schedule II opioid drug... Start Date: 09/19/22 Status: Ordered Lantus Solostar Pen 100 units/mL subcutaneous solution See Instructions, Please take 20 units at bedtime E11.8, # 45 mL, 3 Refills, Maintenance, 12/29/22 8:07:00 EDT, Injection, [facility] #[id number], Partial fill upon patient request if the prescription is for a schedule II opioid drug., 168, cm,... Start Date: 12/29/22 Status: Ordered levothyroxine 0.025 mg oral tablet 1.5 tablet, By Mouth, Daily, # 45 tablet, 10 Refills, Maintenance, 01/12/23 16:11:00 EDT, [facility] #[id number], 168, cm, 12/26/22 16:32:00 EDT, Height, 72.7, [...] BG... Start Date: 12/27/22 Status: Ordered Pen [facility], 31 G x 5 mm BD Ultra [...] 0 Refills, Maintenance, 06/28/22 11:25:00 EDT, Tablet, [facility] #[id number], Partial fill upon patient request if the [...] GIVEN HE IS ON ANTI REJECTION TREATMENT [facility] TRANSPLANT REJECTION Start Date: 11/25/22 Status: Ordered tacrolimus 1 mg oral tablet, extended release = 8 mg, By Mouth, Daily in AM, Please take tacrolimus 8 mg PO daily in AM and f/u with nephrologistfor level monitoring and dose adjustment., # 30 tablet, 0 Refills, Maintenance, 07/10/22 12:57:00 EDT, XR Tablet, [facility] #[id number], Partial... Start Date: 07/10/22 Stop Date: 08/09/22 Status: Ordered tamsulosin 0.4 mg oral capsule 0.4 mg, 1, capsule, By Mouth, Daily, # 30 capsule, Refills 0, Tot. Refills 0, Maintenance, :30:00 EDT, Route to Pharmacy Electronically, [facility] #[id number], Partial fill upon patient request if the prescription is for a schedule II... Start Date: 07/21/22 Status: Ordered Trulicity Pen 0.75 mg/0.5 mL subcutaneous solution 0.5 mL = 0.75 mg, Subcutaneous Injection, Every week, rotate injection sites, # 2 mL, 5 Refills, Maintenance, 12/26/22 17:06:00 EDT, Solution, [facility] #[id number], Partial fill upon patient request if the prescription is for a schedule II opio... Start Date: 12/26/22 Status: Ordered valganciclovir 450 mg oral tablet 450 mg, 1, tablet, By Mouth, Every Thursday, Thursday and Thursday, # 26 tablet, Refills 1, Tot. Refills 1, Maintenance, 06/28/22 11:26:00 EDT, Route to Pharmacy Electronically, [facility] #[id number], Partial fill upon patient request if the [...] ADAM (obstructive sleep apnea) Confirmed Active [facility] Care Management Vernell Mckenzie [phone] Confirmed Active Subclinical hypothyroidism Confirmed Active 1Weighed 1.5 pounds at . 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 Social History Social History Type Response Smoking Status Never smoker; Tobacc o user in household: No entered on: 09/12/15 Sex Patient Care team information Care Team Personnel Name: Desmond Anton RN Position: S RN Member Role: Primary Care Nurse Name: Eliza Ch RN Position: [facility] RN Member Role: Primary Care Nurse Name: Izzy Cooper Position: [facility] RN Member Role: Primary Care Nurse Name: Elie Alex MD Position: [facility] Renal MD Member Role: Lifetime Consulting Physician Address: Address: [address] [place] [address], [address] [facility] [place] [address]- Name: Rayray Brand Position: [facility] Physician (General Medicine) Member Role: Primary Care Nurse Name: Liudmila Hinds Position: [facility] RN Member Role: Primary Care Nurse Name: Kannan Gibbs RN Position: [facility] RN Member Role: Primary Care Nurse Name: Chase Brumfield RN Position: [facility] ED RN W/OE and Tasks Member Role: Primary Care Nurse Name: Link Stein RN Position: [facility] RN Supv Member Role: Primary Care Nurse Name: Isai Weaver DO Position: [facility] Renal MD Member Role: Lifetime Consulting Physician Address: Address: [address] [place], [place] [address] [place] [address]- Name: Lor Abdullahi RN Position: [facility] RN Member Role: Primary Care Nurse Name: Charity Billings RN Position: [facility] RN Member Role: Primary Care Nurse Name: Trae Hawkins III, RN Position: [facility] RN Member Role: Primary Care Nurse Name: Yamini Soares Position: [facility] RN Member Role: Primary Care Nurse Name: Marcus Ardon RN Position: [facility] RN Member Role: Primary Care Nurse Name: Jaison Sherwood MD Position: [facility] Renal MD Member Role: Lifetime Consulting Physician Address: Address: [address] [place] [address] [address] [facility] [place] [address]- [place] Name: Anna White RN Position: [facility] AMB Nurse Member Role: Primary Care Nurse Name: Marleny Sanchez RN Position: [facility] RN Member Role: Primary Care Nurse Name: Gabriel Chappell MD Position: [facility] Renal MD Member Role: Lifetime Consulting Physician Address: Address: [address] [place] [address] [facility] [place] [address]- Name: Muriel Page RN Position: [facility] SN RN Member Role: Primary Care Nurse Name: Marielena Sheehan RN Position: [facility] RN Member Role: Primary Care Nurse Name: Nadia Hernandez RN Position: [facility] RN Member Role: Primary Care Nurse Name: Alyssa Nguyen RN Position: [facility] RN Member Role: Primary Care Nurse Name: Елена Jules RN Position: [facility] RN Member Role: Primary Care Nurse Name: Arleen Cooper MD Position: [facility] Primary Care Physician Member Role: PCP Address: Address: [address] [place] [id number]- [place] Care Team Related Persons Name: CAMI ELIAS Address: home [address] [place] [address] Name: HERMILO PANDA Address: [address] [address] Name: JACK PANDA Address: [address] [place] [address]
--- OUTSIDE RECORDS SUMMARY | 2023-06-19 12:41 | XMS_ITS | Continuity of Care Document ---
Author Name Unknown Organization [facility] Address [address] [place] [address]- Care Team Providers Care Penology Professor Name Role Phone Arleen Cooper MD Primary Care Physician Encounter [facility] Date(s): 12/16/22 - 12/16/[address] [address]- Discharge Disposition: A-D/C Home Attending Physician: Masoud Carrera MD Admitting Physician: Masoud Carrera MD Referring Physician: Masoud Carrera MD Allergies, Adverse Reactions, Alerts Substance Reaction Severity Status ibuprofen decreased kidney function Ac tive aspirin decresed kidney function Act nina Toradol 1 decreased kidney function Ac tive Robaxin itching Active Valium difficulty breathing Active Vicodin itching Active 1Pt states he is not allergic to this medication Immunizations Given and Recorded Vaccine Date Status Refusal Reason [id number] 12y+ bivalent booster vax 1 07/17/22 Given [...] 11/25/22 Status: Ordered B-D PEN NDL MINI [id number](12/11)PRPL USE DIRECTED FOR TYPE 1 DIABETES Start Date: 11/25/22 Status: Ordered Baqsimi One Pack 3 mg nasal powder See Instructions, 3 mg Once In one nostril; dose does not need to be inhaled may repeat in 15 minutes alternate nostrils, # 1 each, 5 Refills, Soft Stop, 09/19/22 22:47:00 EST, [facility] #[id number], Partial fill upon patient request if the [...] tablet, 11 Refills, Maintenance, 10/17/22 12:12:00 EST, [facility] #[id number], 30, TAKE 1 TABLET BY MOUTH EVERY DAY, 168, cm, 09/19/22 14:56:00 EST, Height, 60.2, kg, 07/24/22 0:30:00 EDT, Dry Weight Start Date: 10/17/22 Status: Ordered FLUoxetine 20 mg oral capsule 1, capsule, By Mouth, Daily, # 30 capsule, Refills 11, Maintenance, 09/30/22 13:35:00 EST, Route toPharmacy Electronically, [facility] #[id number], 168, cm, 09/19/22 14:56:00 EST, Height, 60.2,kg, [...] 09/02/22 15:33:00 EST, Route to Pharmacy Electronically, [facility] #[id number], 168, cm, 07/30/22 15:53:00 EDT, Height, 60.2, kg, 07/24/22 0:30:00 EDT, Dry Weight Start Date: 09/02/22 Status: Ordered glucose 4 gm oral tablet, chewable 4 tablet = 16 Gm, Chew, Once, PRN as needed for low blood sugar, # 50 tablet, 0 Refills, Soft Stop,09/19/22 22:51:00 EST, Chew Tablet, [facility] #[id number], Partial fill upon patient request if the prescription is for a schedule II opioid drug... Start Date: 09/19/22 Status: Ordered Golytely - oral powder for reconstitution See Instructions, Drink 240mL every 15 minutes until gone, # 4,000 mL, 0 Refills, Maintenance, 12/03/22 9:00:00 EST, [facility] #[id number], Partial fill upon patient request if the prescriptionis for a schedule II opioid drug., Drink 240mL ever... Start Date: 12/03/22 Status: Ordered Lantus Solostar Pen 100 units/mL subcutaneous solution INJECT 18 UNITS UNDER THE SKIN EVERY NIGHT AT BEDTIME Start Date: 11/25/22 Status: Ordered levothyroxine 0.025 mg oral tablet 1.5 tablet, By Mouth, Daily, # 135 tablet, 0 Refills, [facility] #[id number], 167.64, cm, 01/23/22 11:51:00 EDT, Height, 63.7, [...] drug. Start Date: 11/25/22 Status: Ordered Pen [place], 31 G x 5 mm BD Ultra [...] 0 Refills, Maintenance, 06/28/22 11:25:00 EDT, Tablet, [facility] #[id number], Partial fill upon patient request if the [...] GIVEN HE IS ON ANTI REJECTION TREATMENT [facility] TRANSPLANT REJECTION Start Date: 11/25/22 Status: Ordered tacrolimus 1 mg oral tablet, extended release = 8 mg, By Mouth, Daily in AM, Please take tacrolimus 8 mg PO daily in AM and f/u with nephrologistfor level monitoring and dose adjustment., # 30 tablet, 0 Refills, Maintenance, 07/10/22 12:57:00 EDT, XR Tablet, [facility] #[id number], Partial... Start Date: 07/10/22 Stop Date: 08/09/22 Status: Ordered tamsulosin 0.4 mg oral capsule 0.4 mg, 1, capsule, By Mouth, Daily, # 30 capsule, Refills 0, Tot. Refills 0, Maintenance, :30:00 EDT, Route to Pharmacy Electronically, [facility] #[id number], Partial fill upon patient request if the prescription is for a schedule II... Start Date: 07/21/22 Status: Ordered valganciclovir 450 mg oral tablet 450 mg, 1, tablet, By Mouth, Every Thursday, Thursday and Thursday, # 26 tablet, Refills 1, Tot. Refills 1, Maintenance, 06/28/22 11:26:00 EDT, Route to Pharmacy Electronically, [facility] #[id number], Partial fill upon patient request if the [...] sleep apnea) Confirmed Active [facility] One Deandra, Vernell Fabian [phone] Confirmed Active Subclinical hypothyroidism Confirmed Active 1Weighed 1.5 pounds at . 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 Vital Signs Most recent to oldest [Reference Range]: 1 2 3 Height 168 cm (12/16/22 10:49 AM) Oxygen Saturation [94-100 %] 95 % (12/16/22 12:17 PM) 96 % (12/16/22 12:10 PM) 96 % (12/16/22 12:00 PM) Pulse Rate [55-90 bpm] 88 bpm (12/16/22 10:49 AM) Blood Pressure [90-138/55-84 mm Hg] 118/93mm Hg (12/16/22 12:10 PM) 116/65mm Hg (12/16/22 12:00 PM) 114/63mm Hg (12/16/22 11:50 AM) Respiratory Rate [16-30 br/min] 16 br/min (12/16/22 12:10 PM) 14 br/min *L* (12/16/22 12:00 PM) 16 br/min (12/16/22 11:50 AM) Temperature [96.8-100.4 DegF] 98.0 DegF (12/16/22 12:10 PM) 97.7 DegF (12/16/22 11:40 AM) 98.1 DegF (12/16/22 10:49 AM) Liters per Minute 2 L/min (12/16/22 11:40 AM) Mode of Delivery (Oxygen) Room air (12/16/22 12:17 PM) Room air (12/16/22 12:10 PM) Room air (12/16/22 12:00 PM) Blood pressure sites Arm, left (12/16/22 10:49 AM) Temperature Route Temporal (12/16/22 12:10 PM) Temporal (12/16/22 11:40 AM) Temporal (12/16/22 10:49 AM) Dry Weight 73.2 kg (12/16/22 10:49 AM) Dry Weight Obtained Via Standing scale (12/16/22 10:49 AM) Social History Social History Type Response [...] Care Nurse Name: Elie Alex MD Position: [facility] Renal MD Member Role: Lifetime Consulting Physician Address: Address: [address] [place] [address], [address] [facility] [place] [address]- Name: Rayray Brand Position: [facility] Physician (General Medicine) Member Role: Primary Care Nurse Name: Liudmila Hinds Position: [facility] RN Member Role: Primary Care Nurse Name: Kannan Gibbs RN Position: [facility] RN Member Role: Primary Care Nurse Name: Chase Brumfield RN Position: [facility] ED RN W/OE and Tasks Member Role: Primary Care Nurse Name: Link Stein RN Position: [facility] RN Supv Member Role: Primary Care Nurse Name: Isai Weaver DO Position: [facility] Renal MD Member Role: Lifetime Consulting Physician Address: Address: [address] [place], [place] [address] [place] [address]- Name: Lor Abdullahi RN Position: [facility] RN Member Role: Primary Care Nurse Name: Charity Billings RN Position: S RN Member Role: Primary Care Nurse Name: Trae Hawkins III, RN Position: [facility] RN Member Role: Primary Care Nurse Name: Yamini Soares Position: [facility] RN Member Role: Primary Care Nurse Name: Marcus Ardon RN Position: [facility] RN Member Role: Primary Care Nurse Name: Jaison Sherwood MD Position: [facility] Renal MD Member Role: Lifetime Consulting Physician Address: Address: [address] [place] [address] [address] [facility] [place] [address]- Name: Anna White RN Position: [facility] AMB Nurse Member Role: Primary Care Nurse Name: Marleny Sanchez RN Position: [facility] RN Member Role: Primary Care Nurse Name: Gabriel Chappell MD Position: [facility] Renal MD Member Role: Lifetime Consulting Physician Address: Address: [address] [place] [address] [facility] [place], [place] [address] Name: Muriel Page RN Position: [facility] SN RN Member Role: Primary Care Nurse Name: Marielena Sheehan RN Position: [facility] RN Member Role: Primary Care Nurse Name: Nadia Hernandez RN Position: [facility] RN Member Role: Primary Care Nurse Name: Alyssa Nguyen RN Position: [facility] RN Member Role: Primary Care Nurse Name: Елена Jules RN Position: [facility] RN Member Role: Primary Care Nurse Name: Arleen Cooper MD Position: [facility] Primary Care Physician Member Role: PCP Address: Address: [address] [place] [address]- Care Team Related Persons Name: CAMI ELIAS Address: [address] [place] [address] Name: HERMILO PANDA Address: [address] [address] Name: JACK PANDA Address: [address] [place] [address]
--- OUTSIDE RECORDS SUMMARY | 2023-06-19 12:41 | XMS_ITS | Continuity of Care Document ---
Author Name Unknown Organization [facility] Address [address] [place] [address]- Care Team Providers Care Head Greenskeeper Name Role Phone Arleen Cooper MD Primary Care Physician [phone] Encounter [facility] Date(s): 06/28/20 - 07/28/[address] [address]- [facility] Allergies, Adverse Reactions, Alerts Substance Reaction Severity [...] EST, 04/30/20 9:21:00 EDT, Tablet, [facility], 1 tablet By Mouth Daily, [...] 07/18/20 11:05:00 EDT, Route to Pharmacy Electronically, [facility], 167.64, cm, 07/12/20 8:38:00 EDT, Height, 70, kg, 04/11/20 15:19:00... Start Date: 07/18/20 Stop Date: 08/17/20 Status: Ordered Envarsus XR 1 mg oral tablet, extended release 8 tablet = 8 mg, By Mouth, Daily in AM, # 240 tablet, 11 Refills, Maintenance, 04/30/20 9:22:00 EDT, [facility], 167.64, cm, 04/30/20 8:23:00 EDT, Height, 70, kg, 04/11/20 15:19:00 EDT, Dry Weight Start Date: 04/30/20 Status: Ordered Envarsus XR 1 mg oral tablet, extended release 4 tablet = 4 mg, By Mouth, Daily in AM, # 240 tablet, 0 Refills, Maintenance, 04/12/20 12:33:00 EDT, [facility], 167.64, cm, 04/12/20 4:21:00 EDT, [...] mL, 11 Refills, Maintenance, 04/17/20 16:49:00 EDT, [facility] #[id number], 167.64, cm, 04/16/20 8:56:00 EDT, Height, 70, kg, 04/11/20 15:19:00 EDT, Dry Weight Start Date: 04/17/20 Status: Ordered levothyroxine 0.025 mg oral tablet 1.5 tablet = 37.5 mcg, By Mouth, Daily, # 45 tablet, 11 Refills, Maintenance, 04/18/20 17:51:00 EDT, Tablet, [facility] #[id number], 167.64, cm, 04/16/20 8:56:00 EDT, Height, 70, kg, 04/11/20 15:19:00 EDT, Dry Weight Start Date: 04/18/20 Status: Ordered Pen [place], 31 G x 5 mm BD Ultra [...] 04/30/20 9:22:00 EDT, Route to Pharmacy Electronically, [facility], 167.64, cm, 04/30/20 8:23:00 EDT, Height, 70, kg, 04/11/20 15:... Start Date: 04/30/20 Stop Date: 09/30/20 Status: Ordered Veltassa 16.8 g oral powder for reconstitution = 16.8 Gm, By Mouth, 2 times a day, # 60 pack/packet, 1 Refills, Maintenance, 06/21/20 16:51:00 EDT, [facility], Deliver to pt in [...]
--- OUTSIDE RECORDS SUMMARY | 2023-06-19 12:41 | XMS_ITS | Continuity of Care Document ---
Author Name Unknown Organization [facility] Address [address] [place] [address]- Care Team Providers Care Lead Shop Operator Name Role Phone Kenneth CLARKE, Arleen Primary Care Physician Encounter [facility] [place] Date(s): 07/17/22 - 08/16/[address] [address]- Allergies, Adverse Reactions, Alerts Substance Reaction Severity Status ibuprofen decreased kidney function Ac tive aspirin decresed kidney function Act nina Toradol 1 decreased kidney function Ac tive Robaxin itching Active Valium difficulty breathing Active Vicodin itching Active 1Pt states he is not allergic to this medication Immunizations Given and Recorded Vaccine Date Status Refusal Reason [id number] 12y+ bivalent booster vax 1 07/17/22 Given [...] Note: vis Medications B-D PEN NDL SHRT [id number](02/10) COOPER B-D PEN NDL SHRT [id number](02/10) COOPER, See Instructions, # 100 each, 0 [...] 2 Refills, Maintenance, 06/29/22 11:32:00 EDT, Solution, [facility] #[id number], Partial fillupon patient request if the prescription is... Start Date: 06/29/22 Status: Ordered insulin lispro (concentrated) 200 units/mL subcutaneous solution See Instructions, 3 units Subcutaneous Infusion for FSBS of every 100 and 1 unit additional for every 40 above 100, # 12 mL, 3 Refills, Maintenance, 06/29/22 14:22:00 EDT, [facility] #[id number], Partial fill upon patient request if the prescript... Start Date: 06/29/22 Status: Ordered levothyroxine 0.025 mg oral tablet 1.5 tablet, By Mouth, Daily, # 135 tablet, 0 Refills, [facility] #[id number], 167.64, cm, 01/23/22 11:51:00 EDT, Height, 63.7, kg, 01/30/21 22:32:00 EDT, Dry Weight Start Date: 03/27/22 Status: Ordered midodrine 5 mg oral tablet 10 mg, 2, tablet, By Mouth, 3 times a day, # 180 tablet, Refills 0, Tot. Refills 0, Maintenance, 08/15/22 15:02:00 EST, Route to Pharmacy Electronically, [facility] #[id number], Partial fill upon patient request if the prescription is for a sched... Start Date: 08/15/22 Status: Ordered multivitamin Multiple Vitamins oral capsule 1 capsule, By Mouth, Daily, # 30 capsule, 0 Refills, Maintenance, 06/28/22 11:24:00 EDT, Capsule, [facility] #[id number], Partial fill upon patient request if the [...] 06/28/22 Stop Date: 07/28/22 Status: Ordered Pen [place], 31 G x 5 mm BD Ultra [...] 0 Refills, Maintenance, 06/28/22 11:25:00 EDT, Tablet, [facility] #[id number], Partial fill upon patient request if the prescription is for a schedule II opioid drug., 167, cm, 06/28/22 8:15:00 EDT,... Start Date: 06/28/22 Status: Ordered PROzac 20 mg oral capsule 20 mg, 1, capsule, By Mouth, Daily, # 30 capsule, Refills 0, Tot. Refills 0, Maintenance, 07/10/22 11:33:00 EDT, Route to Pharmacy Electronically, [facility] #[id number], Partial fill upon patient request if the [...] 09/08/22 11:34:00 EST, 07/10/22 11:34:00 EDT, Tablet, [facility] #[id number]... Start Date: 07/10/22 Stop Date: 09/08/22 Status: Ordered tacrolimus 1 mg oral tablet, extended release = 8 mg, By Mouth, Daily in AM, Please take tacrolimus 8 mg PO daily in AM and f/u with nephrologistfor level monitoring and dose adjustment., # 30 tablet, 0 Refills, Maintenance, 07/10/22 12:57:00 EDT, XR Tablet, [facility] #[id number], Partial... Start Date: 07/10/22 Stop Date: 08/09/22 Status: Ordered tamsulosin 0.4 mg oral capsule 0.4 mg, 1, capsule, By Mouth, Daily, # 30 capsule, Refills 0, Tot. Refills 0, Maintenance, :30:00 EDT, Route to Pharmacy Electronically, [facility] #[id number], Partial fill upon patient request if the prescription is for a schedule II... Start Date: 07/21/22 Status: Ordered valganciclovir 450 mg oral tablet 450 mg, 1, tablet, By Mouth, Every Thursday, Thursday and Thursday, # 26 tablet, Refills 1, Tot. Refills 1, Maintenance, 06/28/22 11:26:00 EDT, Route to Pharmacy Electronically, [facility] #[id number], Partial fill upon patient request if the [...] sleep apnea) Confirmed Active [facility] Management Vernell Mckenzie [phone] Confirmed Active Subclinical hypothyroidism Confirmed Active 1Weighed 1.5 pounds at . 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 RN Member Role: Primary Care Nurse Name: Eliza Ch RN Position: [facility] RN Member Role: Primary Care Nurse Name: Izzy Cooper Position: [facility] RN Member Role: Primary Care Nurse Name: Elie Alex MD Position: [facility] Renal MD Member Role: Lifetime Consulting Physician Address: Address: [address] [place] [address], [address] [facility] [address]- Name: Rayray Brand Position: [facility] Physician (General Medicine) Member Role: Primary Care Nurse Name: Liudmila Hinds Position: [facility] RN Member Role: Primary Care Nurse Name: Kannan Gibbs RN Position: [facility] RN Member Role: Primary Care Nurse Name: Chase Brumfield RN Position: [facility] ED RN W/OE and Tasks Member Role: Primary Care Nurse Name: Sissy Powers RN Position: [facility] RN Member Role: Primary Care Nurse Name: Link Stein RN Position: [facility] RN Supv Member Role: Primary Care Nurse Name: Isai Weaver DO Position: [facility] Renal MD Member Role: Lifetime Consulting Physician Address: Address: [address] [place] [address] [address] [facility] [place] [address]- Name: Lor Abdullahi RN Position: [facility] RN Member Role: Primary Care Nurse Name: Charity Billings RN Position: [facility] RN Member Role: Primary Care Nurse Name: Trae Hawkins III, RN Position: [facility] RN Member Role: Primary Care Nurse Name: Geoffrey Davis RN Position: [facility] RN Member Role: Primary Care Nurse Name: Yamini Soares Position: [facility] RN Member Role: Primary Care Nurse Name: Marcus Ardon RN Position: [facility] RN Member Role: Primary Care Nurse Name: Jaison Sherwood MD Position: [facility] Renal MD Member Role: Lifetime Consulting Physician Address: Address: [address] [place] [address] [address] [facility] [place] [address]- [place] Name: Anna White RN Position: [facility] AMB Nurse Member Role: Primary Care Nurse Name: Marleny Sanchez RN Position: [facility] RN Member Role: Primary Care Nurse Name: Gabriel Chappell MD Position: [facility] Renal MD Member Role: Lifetime Consulting Physician Address: Address: [address] [place] [address] [facility] [place] [address]- [place] Name: Muriel Page RN Position: [facility] SN RN Member Role: Primary Care Nurse Name: Marielena Sheehan RN Position: [facility] RN Member Role: Primary Care Nurse Name: Nadia Hernandez RN Position: S RN Member Role: Primary Care Nurse Name: Alyssa Nguyen RN Position: [facility] RN Member Role: Primary Care Nurse Name: Елена Jules RN Position: [facility] RN Member Role: Primary Care Nurse Name: Arleen Cooper MD Position: [facility] Primary Care Physician Member Role: PCP Address: Address: [address] [place] [id number]- [place] Care Team Related Persons Name: CAMI ELIAS Address: home [address] [place] [address] Name: HERMILO PANDA Address: home [address] [address] Name: JACK PANDA Address: home [address] [place] [address]
--- OUTSIDE RECORDS SUMMARY | 2023-06-19 12:41 | XMS_ITS | Continuity of Care Document ---
Author Name Unknown Organization [facility] ter Address [address] [place] [address]- Care Team Providers Care Hydrochloric Area Supervisor Name Role Phone Arleen Cooper MD Primary Care Physician Encounter [facility] [place] Date(s): 09/10/19 - 09/10/[address] [address]- [facility] Discharge Disposition: A-D/C Home Attending Physician: Yfn Shah DO Admitting Physician: Yfn Shah DO Referring Physician: Not on Staff, Referring MD [...] Tot. Refills 0, Maintenance, to be worn [facility] dx: G47.30 YAMIL: lifetime, 06/23/19 14:38:50 EDT, Compound Start Date: 06/23/19 Status: Ordered carvedilol 25 mg oral tablet 25 mg, By Mouth, Daily, Refills 0, Maintenance, 05/23/18 11:49:25 EDT Start Date: 05/23/18 Status: Ordered ceFAZolin 2 g/10 mL-NaCl 0.9% intravenous solution See Instructions, Every thursday and for 2 weeks, # 1 application, 0 Refills, Maintenance, 05/23/18 11:49:53 EDT Start Date: 05/23/18 Status: Ordered ceFAZolin 3 g/100 mL-NaCl 0.9% intravenous solution See Instructions, every thursday for total of 2 weeks., # 1 application, 0 Refills, Maintenance, 05/23/18 11:50:40 EDT Start Date: 05/23/18 Status: Ordered Ferrous Sulfate = 325 mg, By Mouth, Daily, 0 Refills, Maintenance, 09/12/15 11:24:47 EST Start Date: 09/12/15 Status: Ordered Lantus Solostar Pen 100 units/mL subcutaneous solution = 35 units, Subcutaneous Injection, Daily, # 11 mL, 5 Refills, Maintenance, 02/17/18 12:57:38 EDT, Solution Start Date: 02/17/18 Status: Ordered levothyroxine 0.025 mg oral tablet 1 tablet = 25 mcg, By Mouth, Daily, Maintenance, 01/03/18 8:31:39 EDT, Tablet Start Date: 01/03/18 Status: Ordered lisinopril 10 mg oral tablet 40 mg, 4, tablet, By Mouth, Daily, Maintenance, 01/03/18 8:31:38 EDT Start Date: 01/03/18 Status: Ordered lisinopril 10 mg oral tablet 10 mg, 1, tablet, By Mouth, Daily, TAKE IN AM, # 30 tablet, Refills 0, Maintenance, 09/10/19 5:27:02 EST Start Date: 09/10/19 Status: Ordered PAP Supplies - Mask, Tubing, Filters, Head Gear, Chin Strap, and Water Chamber PAP Supplies - Mask, Tubing, Filters, Head Gear, Chin Strap, and Water Chamber, See Instructions, #1 each, Refills 12, Tot. Refills 12, Maintenance, to be used with CPAP machine for dx: ADAM G47.30, 06/23/19 14:38:44 EDT, Compound Start Date: 06/23/19 Status: Ordered Pen [place], 31 G x 5 mm BD Ultra Fine III See Instructions, # 100 each, Refills 3, Tot. Refills 3, Maintenance, use as directed for Type 1 Diabetes Mellitus, 07/20/18 14:11:38 EDT, Compound Start Date: 07/20/18 Stop Date: 07/15/19 Status: Ordered Procrit Inj 1 mL = 10,000 units, Subcutaneous Injection, Every week, 0 Refills, Maintenance, 01/07/18 14:50:45 EDT, Injection Start Date: 01/07/18 Status: Ordered Renvela 800 mg oral tablet 1 tablet = 800 mg, By Mouth, 3 times a day, # 90 tablet, 0 Refills, Maintenance, 01/03/18 10:14:07 EDT, Tablet Start Date: 01/03/18 Status: Ordered Sensipar 90 mg oral tablet 1 tablet = 90 mg, By Mouth, Daily, # 30 tablet, 0 Refills, Maintenance, 01/03/18 10:14:42 EDT, Tablet Start Date: 01/03/18 Status: Ordered Velphoro 2500 mg (500 mg elemental iron) oral tablet, chewable 1 tablet = 500 mg, Chew, 3 times a day with meals, # 90 tablet, 0 Refills, Maintenance, 08/23/18 11:15:36 EST, Chew Tablet Start Date: 08/23/18 Status: Ordered Zofran 4 mg oral tablet 1 tablet = 4 mg, By Mouth, Every 8 hours, PRN as needed for nausea/vomiting, # 10 tablet, 0 Refills, Maintenance, 09/10/19 13:00:27 EST, Tablet Start Date: 09/10/19 Status: Ordered Problem List Condition Effective Dates Status Health Status Inform ant ESRD on hemodialysis(Confirmed) Active Diabetes mellitus(Confirmed) Active Hearing loss(Confirmed) 1 Active HTN (hypertension)(Confirmed) Active Care Management [facility] Diann [phone](Confirmed) Active Subclinical hypothyroidism(Confirmed) Active 1Weighed 1.5 pounds at . 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 Vital Signs Most recent to oldest [Reference Range]: 1 2 3 Oxygen Saturation [94-100 %] 95 % (09/10/19 1:04 PM) 98 % (09/10/19 8:36 AM) 100 % (09/10/19 6:52 AM) Pulse Rate [55-90 bpm] 81 bpm (09/10/19 1:04 PM) 78 bpm (09/10/19 8:36 AM) 81 bpm (09/10/19 6:52 AM) Blood Pressure [90-138/55-84 mm Hg] 178/74mm Hg *H* (09/10/19 1:04 PM) 174/84mm Hg *H* (09/10/19 8:36 AM) 143/73mm Hg *H* (09/10/19 6:52 AM) Respiratory Rate [16-30 br/min] 16 br/min (09/10/19 1:04 PM) 16 br/min (09/10/19 8:36 AM) 16 br/min (09/10/19 6:52 AM) Temperature [96.8-100.4 DegF] 98.5 DegF (09/10/19 1:04 PM) 97.9 DegF (09/10/19 8:36 AM) 98.3 DegF (09/10/19 6:52 AM) Mode of Delivery (Oxygen) Room air (09/10/19 1:04 PM) Room air (09/10/19 8:36 AM) Room air (09/10/19 5:31 AM) Blood pressure sites Arm, left (09/10/19 1:04 PM) Arm, left (09/10/19 8:36 AM) Arm, left (09/10/19 6:52 AM) Temperature Route Oral (09/10/19 1:04 PM) Oral (09/10/19 8:36 AM) Oral (09/10/19 6:52 AM) Social History Social History Type Response Smoking Status Never smoker; Tobacc o user in household: No entered on: 09/12/15 Sex
--- OUTSIDE RECORDS SUMMARY | 2023-06-19 12:41 | XMS_ITS | Continuity of Care Document ---
Author Name Unknown Organization [facility] Address [address] [place] [address]- Care Team Providers Care Director Of Operations Name Role Phone Arleen Cooper MD Primary Care Physician [phone] Encounter [facility] [place] [facility] [place] [id number] Date(s): 06/05/22 - 06/12/22 [facility] [address] [place], [place] [address] Attending Physician: Stuart Marie DO Referring Physician: Arleen Cooper MD Allergies, Adverse [...] 02/18/21 16:31:00 EDT, Route to Pharmacy Electronically, [facility] #[id number], Partial fill upon patientrequest if the prescription is for a schedule II op... Start Date: 02/18/21 Stop Date: 08/17/21 Status: Ordered B-D PEN NDL SHRT [id number](02/10) COOPER B-D PEN NDL SHRT [id number](02/10) COOPER, See Instructions, # 100 each, 0 [...] Replace Required Details, Route to Pharmacy Electronically, [facility], 167, cm, 06/10/22 15:12:00 E... Start Date: 06/10/22 Status: Ordered Envarsus XR 4 mg oral tablet, extended release See Instructions, TAKE TWO TABLETS BY MOUTH ONCE DAILY, # 180 tablet, 3 Refills, Maintenance, 06/10/22 17:00:00 EDT, [facility], 167, cm, 06/10/22 15:12:00 EDT, Height, 69.75, kg, 06/10/22 1:04:00 EDT, Dry Weight Start Date: 06/10/22 Status: Ordered FREESTYLE LITE [...] 01/23/22 16:09:00 EDT, Route to Pharmacy Electronically, [facility] #[id number], Partial fill upon patient request if the [...] mL, 11 Refills, Maintenance, 01/18/22 14:50:00 EDT, [facility] #[id number], 167.64, cm, 01/09/22 13:27:00 EDT, Height, 63.7, kg, 01/30/21 22:32:00 EDT, Dry Weight Start Date: 01/18/22 Status: Ordered levothyroxine 0.025 mg oral tablet 1.5 tablet, By Mouth, Daily, # 135 tablet, 0 Refills, [facility] #[id number], 167.64, cm, 01/23/22 11:51:00 EDT, Height, 63.7, kg, 01/30/21 22:32:00 EDT, Dry Weight Start Date: 03/27/22 Status: Ordered Pen [place], 31 G x 5 mm BD Ultra Fine III See Instructions, # 100 each, Refills 3, Tot. Refills 3, Maintenance, use as directed for Type 1 Diabetes Mellitus, 07/20/18 14:11:38 EDT, Compound Start Date: 07/20/18 Stop Date: 07/15/19 Status: Ordered PROzac 20 mg oral capsule 20 mg, 1, capsule, By Mouth, Daily, # 30 capsule, Refills 0, Maintenance, 06/09/22 19:01:00 EDT, Partial fill upon patient request if the prescription is for a schedule II opioid drug. Start Date: 06/09/22 Status: Ordered Veltassa 16.8 g oral powder for reconstitution = 16.8 Gm, By Mouth, 2 times a day, # 60 pack/packet, 1 Refills, Maintenance, 06/21/20 16:51:00 EDT, [facility], Deliver to pt in [...] [facility] , Vernell Rui [phone](Confirmed) Active Subclinical hypothyroidism(Confirmed) Active 1Weighed 1.5 pounds at . 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 Vital Signs Most recent to oldest [Reference Range]: 1 Height 167.64 cm (06/05/22 4:27 PM) Weight 62.27 kg (06/05/22 4:27 PM) Oxygen Saturation [94-100 %] 95 % (06/05/22 4:27 PM) Pulse Rate [55-90 bpm] 85 bpm (06/05/22 4:27 PM) Body Mass Index [18.5-24.99] 22.16 (06/05/22 4:27 PM) Blood Pressure [90-138/55-84 mm Hg] 111/ 64mm Hg (06/05/22 4:27 PM) Temperature [96.8-100.4 DegF] 98.1 DegF (06/05/22 4:27 PM) Mode of Delivery (Oxygen) Room air (06/05/22 4:27 PM) Blood pressure sites Arm, left (06/05/22 4:27 PM) Temperature Route Temporal (06/05/22 4:27 PM) Dry Weight 62.27 kg (06/05/22 4:27 PM) Weight Obtained Via Standing scale (06/05/22 4:27 PM) Dry Weight Obtained Via Standing scale (06/05/22 4:27 PM) Social History Social History Type Response Smoking Status Never smoker; Tobacc o user in household: No entered on: 09/12/15 Sex Care Team Personnel Name: Arleen Cooper MD Address: [address] [place] [address]
--- OUTSIDE RECORDS SUMMARY | 2023-06-19 12:41 | XMS_ITS | Continuity of Care Document ---
Author Name Unknown Organization [facility] Address [address] [place] [address]- Care Team Providers Care Software Deployment Engineer Name Role Phone Arleen Cooper MD Primary [id number] Date(s): 07/31/22 - 09/04/[address] [address]- Attending Physician: Raisa Escobedo MD Admitting Physician: Raisa Escobedo MD Allergies, Adverse Reactions, Alerts Substance Reaction Severity Status ibuprofen decreased kidney function Ac tive aspirin decresed kidney function Act nina Toradol 1 decreased kidney function Ac tive Robaxin itching Active Valium difficulty breathing Active Vicodin itching Active 1Pt states he is not allergic to this medication Immunizations Given and Recorded Vaccine Date Status Refusal Reason [id number] 12y+ bivalent booster vax 1 07/17/22 Given [...] Note: vis Medications B-D PEN NDL SHRT [id number](02/10) COOPER B-D PEN NDL SHRT [id number](02/10) COOPER, See Instructions, # 100 each, 0 [...] 09/02/22 15:33:00 EST, Route to Pharmacy Electronically, [facility] #[id number], 168, cm, 07/30/22 15:53:00 EDT, Height, 60.2, kg, 07/24/22 0:30:00 EDT, Dry Weight Start Date: 09/02/22 Status: Ordered insulin glargine (concentrated) 300 units/mL subcutaneous solution See Instructions, 25 units s/c in the AM at the same time every day rotate injection sites, # 12 mL, 2 Refills, Maintenance, 06/29/22 11:32:00 EDT, Solution, [facility] #[id number], Partial fillupon patient request if the prescription is... Start Date: 06/29/22 Status: Ordered insulin lispro (concentrated) 200 units/mL subcutaneous solution See Instructions, 3 units Subcutaneous Infusion for FSBS of every 100 and 1 unit additional for every 40 above 100, # 12 mL, 3 Refills, Maintenance, 06/29/22 14:22:00 EDT, [facility] #[id number], Partial fill upon patient request if the prescript... Start Date: 06/29/22 Status: Ordered levothyroxine 0.025 mg oral tablet 1.5 tablet, By Mouth, Daily, # 135 tablet, 0 Refills, [facility] #[id number], 167.64, cm, 01/23/22 11:51:00 EDT, Height, 63.7, kg, 01/30/21 22:32:00 EDT, Dry Weight Start Date: 03/27/22 Status: Ordered multivitamin Multiple Vitamins oral capsule 1 capsule, By Mouth, Daily, # 30 capsule, 0 Refills, Maintenance, 09/04/22 11:03:00 EST, Capsule, [facility] #[id number], Partial fill upon patient request if the prescription is for a schedule II opioid drug., 1 capsule By Mouth Daily,x30 days,... Start Date: 09/04/22 Stop Date: 10/04/22 Status: Ordered Pen [place], 31 G x 5 mm BD Ultra [...] 0 Refills, Maintenance, 06/28/22 11:25:00 EDT, Tablet, [facility] #[id number], Partial fill upon patient request if the prescription is for a schedule II opioid drug., 167, cm, 06/28/22 8:15:00 EDT,... Start Date: 06/28/22 Status: Ordered PROzac 20 mg oral capsule 20 mg, 1, capsule, By Mouth, Daily, # 30 capsule, Refills 0, Tot. Refills 0, Maintenance, 09/04/22 11:03:00 EST, Route to Pharmacy Electronically, [facility] #[id number], Partial fill upon patient request if the [...] 09/08/22 11:34:00 EST, 07/10/22 11:34:00 EDT, Tablet, [facility] #[id number]... Start Date: 07/10/22 Stop Date: 09/08/22 Status: Ordered tacrolimus 1 mg oral tablet, extended release = 8 mg, By Mouth, Daily in AM, Please take tacrolimus 8 mg PO daily in AM and f/u with nephrologistfor level monitoring and dose adjustment., # 30 tablet, 0 Refills, Maintenance, 07/10/22 12:57:00 EDT, XR Tablet, [facility] #[id number], Partial... Start Date: 07/10/22 Stop Date: 08/09/22 Status: Ordered tamsulosin 0.4 mg oral capsule 0.4 mg, 1, capsule, By Mouth, Daily, # 30 capsule, Refills 0, Tot. Refills 0, Maintenance, :30:00 EDT, Route to Pharmacy Electronically, [facility] #[id number], Partial fill upon patient request if the prescription is for a schedule II... Start Date: 07/21/22 Status: Ordered valganciclovir 450 mg oral tablet 450 mg, 1, tablet, By Mouth, Every Thursday, Thursday and Thursday, # 26 tablet, Refills 1, Tot. Refills 1, Maintenance, 06/28/22 11:26:00 EDT, Route to Pharmacy Electronically, [facility] #[id number], Partial fill upon patient request if the [...] ADAM (obstructive sleep apnea) Confirmed Active [facility] Care Management [facility], Vernell Fabian [phone] Confirmed Active Subclinical hypothyroidism Confirmed Active 1Weighed 1.5 pounds at . 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 Social History Social History Type Response Smoking Status Never smoker; Tobacc o user in household: No entered on: 09/12/15 Sex Patient Care team information Care Team Personnel Name: Desmond Anton RN Position: [facility] RN Member Role: Primary Care Nurse Name: Eliza Ch RN Position: [facility] RN Member Role: Primary Care Nurse Name: Izzy Cooper Position: [facility] RN Member Role: Primary Care Nurse Name: Elie Alex MD Position: [facility] Renal MD Member Role: Lifetime Consulting Physician Address: Address: [address] [place] [address], [address] [facility] [place] [address]- [place] Name: Rayray Brand Position: [facility] Physician (General Medicine) Member Role: Primary Care Nurse Name: Liudmila Hinds Position: [facility] RN Member Role: Primary Care Nurse Name: Kannan Gibbs RN Position: [facility] RN Member Role: Primary Care Nurse Name: Chase Brumfield RN Position: [facility] ED RN W/OE and Tasks Member Role: Primary Care Nurse Name: Sissy Powers RN Position: [facility] RN Member Role: Primary Care Nurse Name: Link Stein RN Position: [facility] RN Supv Member Role: Primary Care Nurse Name: Isai Weaver DO Position: [facility] Renal MD Member Role: Lifetime Consulting Physician Address: Address: [address] [place], [place] [address] [place] [address]- [place] Name: Lor Abdullahi RN Position: [facility] RN Member Role: Primary Care Nurse Name: Charity Billings RN Position: [facility] RN Member Role: Primary Care Nurse Name: Trae Hawkins III, RN Position: [facility] RN Member Role: Primary Care Nurse Name: Geoffrey Davis RN Position: [facility] RN Member Role: Primary Care Nurse Name: Yamini Soares Position: [facility] RN Member Role: Primary Care Nurse Name: Marcus Ardon RN Position: [facility] RN Member Role: Primary Care Nurse Name: Jaison Sherwood MD Position: [facility] Renal MD Member Role: Lifetime Consulting Physician Address: Address: [address] [place] [address] [address] [facility] [place] [address]- [place] Name: Anna White RN Position: [facility] AMB Nurse Member Role: Primary Care Nurse Name: Marleny Sanchez RN Position: [facility] RN Member Role: Primary Care Nurse Name: Gabriel Chappell MD Position: [facility] Renal MD Member Role: Lifetime Consulting Physician Address: Address: [address] [place] [address] [facility] [place] [address]- Name: Muriel Page RN Position: [facility] SN RN Member Role: Primary Care Nurse Name: Marielena Sheehan RN Position: [facility] RN Member Role: Primary Care Nurse Name: Nadia Hernandez RN Position: S RN Member Role: Primary Care Nurse Name: Alyssa Nguyen RN Position: [facility] RN Member Role: Primary Care Nurse Name: Елена Jules RN Position: [facility] RN Member Role: Primary Care Nurse Name: Arleen Cooper MD Position: [facility] Primary Care Physician Member Role: PCP Address: Address: [address] [place] [address]- Care Team Related Persons Name: CAMI ELIAS Address: home [address] [place] [address] Name: HERMILO PANDA Address: [address] [address] Name: JACK PANDA Address: home [address] [place] [address]
--- OUTSIDE RECORDS SUMMARY | 2023-06-19 12:42 | XMS_ITS | Continuity of Care Document ---
Author Name Unknown Organization [facility] Address [address] [place] [address]- Care Team Providers Care Sectionizer Name Role Phone Kenneth CLARKE, Arleen Primary Care Physician Encounter [facility] Date(s): 09/04/22 - 10/04/[address] [address]- Allergies, Adverse Reactions, Alerts Substance Reaction Severity Status ibuprofen decreased kidney function Ac tive aspirin decresed kidney function Act nina Toradol 1 decreased kidney function Ac tive Robaxin itching Active Valium difficulty breathing Active Vicodin itching Active 1Pt states he is not allergic to this medication Immunizations Given and Recorded Vaccine Date Status Refusal Reason [id number] 12y+ bivalent booster vax 1 07/17/22 Given influenza virus vaccine, inactivated 07/17/22 Give n influenza virus vaccine, inactivated 08/01/21 Darrick rded influenza virus vaccine, inactivated 07/12/20 Darrikc rded influenza virus vaccine, inactivated 06/30/19 Give [...] Note: vis Medications B-D PEN NDL SHRT [id number](02/10) COOPER B-D PEN NDL SHRT [id number](02/10) COOPER, See Instructions, # 100 each, 0 [...] each, 5 Refills, Soft Stop, 09/19/22 22:47:00 [facility] #[id number], Partial fill upon patient request if the [...] Maintenance, 09/30/22 13:35:00 EST, Route toPharmacy Electronically, [facility] #[id number], 168, cm, 09/19/22 14:56:00 EST, Height, 60.2,kg, [...] 09/02/22 15:33:00 EST, Route to Pharmacy Electronically, [facility] #[id number], 168, cm, 07/30/22 15:53:00 EDT, Height, 60.2, kg, 07/24/22 0:30:00 EDT, Dry Weight Start Date: 09/02/22 Status: Ordered glucose 4 gm oral tablet, chewable 4 tablet = 16 Gm, Chew, Once, PRN as needed for low blood sugar, # 50 tablet, 0 Refills, Soft Stop,09/19/22 22:51:00 EST, Chew Tablet, [facility] #[id number], Partial fill upon patient request if the prescription is for a schedule II opioid drug... Start Date: 09/19/22 Status: Ordered insulin glargine (concentrated) 300 units/mL subcutaneous solution See Instructions, 25 units s/c in the AM at the same time every day rotate injection sites, # 12 mL, 2 Refills, Maintenance, 06/29/22 11:32:00 EDT, Solution, [facility] #[id number], Partial fillupon patient request if the prescription is... Start Date: 06/29/22 Status: Ordered insulin lispro (concentrated) 200 units/mL subcutaneous solution See Instructions, 3 units Subcutaneous Infusion for FSBS of every 100 and 1 unit additional for every 40 above 100, # 12 mL, 3 Refills, Maintenance, 06/29/22 14:22:00 EDT, [facility] #[id number], Partial fill upon patient request if the prescript... Start Date: 06/29/22 Status: Ordered levothyroxine 0.025 mg oral tablet 1.5 tablet, By Mouth, Daily, # 135 tablet, 0 Refills, [facility] #[id number], 167.64, cm, 01/23/22 11:51:00 EDT, Height, 63.7, kg, 01/30/21 22:32:00 EDT, Dry Weight Start Date: 03/27/22 Status: Ordered multivitamin Multiple Vitamins oral capsule 1 capsule, By Mouth, Daily, # 30 capsule, 0 Refills, Maintenance, 09/04/22 11:03:00 EST, Capsule, [facility] #[id number], Partial fill upon patient request if the prescription is for a schedule II opioid drug., 1 capsule By Mouth Daily,x30 days,... Start Date: 09/04/22 Stop Date: 10/04/22 Status: Ordered Pen [place], 31 G x 5 mm BD Ultra [...] 0 Refills, Maintenance, 06/28/22 11:25:00 EDT, Tablet, [facility] #05609, Partial fill upon patient request if the [...] Refills, Maintenance, 07/10/22 12:57:00 EDT, XR Tablet, [facility] #[id number], Partial... Start Date: 07/10/22 Stop Date: 08/09/22 Status: Ordered tamsulosin 0.4 mg oral capsule 0.4 mg, 1, capsule, By Mouth, Daily, # 30 capsule, Refills 0, Tot. Refills 0, Maintenance, :30:00 EDT, Route to Pharmacy Electronically, [facility] #[id number], Partial fill upon patient request if the prescription is for a schedule II... Start Date: 07/21/22 Status: Ordered valganciclovir 450 mg oral tablet 450 mg, 1, tablet, By Mouth, Every Thursday, Thursday and Thursday, # 26 tablet, Refills 1, Tot. Refills 1, Maintenance, 06/28/22 11:26:00 EDT, Route to Pharmacy Electronically, [facility] #[id number], Partial fill upon patient request if the [...] ADAM (obstructive sleep apnea) Confirmed Active [facility] Care Management Vernell Mceknzie [phone] Confirmed Active Subclinical hypothyroidism Confirmed Active 1Weighed 1.5 pounds at . 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 Social History Social History Type Response Smoking Status Never smoker; Tobacc o user in household: No entered on: 09/12/15 Sex Patient Care team information Care Team Personnel Name: Desmond Anton RN Position: [facility] RN Member Role: Primary Care Nurse Name: Eliza Ch RN Position: [facility] RN Member Role: Primary Care Nurse Name: Izzy Cooper Position: [facility] RN Member Role: Primary Care Nurse Name: Elie Alex MD Position: [facility] Renal MD Member Role: Lifetime Consulting Physician Address: Address: [address] [place] [address], [address] [facility] [address] Name: Rayray Brand Position: [facility] Physician (General Medicine) Member Role: Primary Care Nurse Name: Liudmila Hinds Position: [facility] RN Member Role: Primary Care Nurse Name: Kannan Gibbs RN Position: [facility] RN Member Role: Primary Care Nurse Name: Chase Brumfield RN Position: [facility] ED RN W/OE and Tasks Member Role: Primary Care Nurse Name: Sissy Powers RN Position: [facility] RN Member Role: Primary Care Nurse Name: Link Stein RN Position: [facility] RN Supv Member Role: Primary Care Nurse Name: Isai Weaver DO Position: [facility] Renal MD Member Role: Lifetime Consulting Physician Address: Address: [address] [place] [address] [address] [facility] [place] [address]- Name: Lor Abdullahi RN Position: [facility] RN Member Role: Primary Care Nurse Name: Charity Billings RN Position: [facility] RN Member Role: Primary Care Nurse Name: Trae Hawkins III, RN Position: [facility] RN Member Role: Primary Care Nurse Name: Geoffrey Davis RN Position: [facility] RN Member Role: Primary Care Nurse Name: Yamini Soares Position: [facility] RN Member Role: Primary Care Nurse Name: Marcus Ardon RN Position: [facility] RN Member Role: Primary Care Nurse Name: Jaison Sherwood MD Position: [facility] Renal MD Member Role: Lifetime Consulting Physician Address: Address: [address] [place] [address] [address] [facility] [place] [address]- [place] Name: Anna White RN Position: [facility] AMB Nurse Member Role: Primary Care Nurse Name: Marleny Sanchez RN Position: [facility] RN Member Role: Primary Care Nurse Name: Gabriel Chappell MD Position: [facility] Renal MD Member Role: Lifetime Consulting Physician Address: Address: [address] [place] [address] [facility] [place] [address]- Name: Muriel Page RN Position: [facility] SN RN Member Role: Primary Care Nurse Name: Marielena Sheehan RN Position: [facility] RN Member Role: Primary Care Nurse Name: Nadia Hernandez RN Position: [facility] RN Member Role: Primary Care Nurse Name: Alyssa Nguyen RN Position: [facility] RN Member Role: Primary Care Nurse Name: Елена Jules RN Position: [facility] RN Member Role: Primary Care Nurse Name: Arleen Cooper MD Position: [facility] Primary Care Physician Member Role: PCP Address: Address: [address] [place] [address]- Care Team Related Persons Name: CAMI ELIAS Address: [address] [place] [address] Name: HERMILO PANDA Address: [address] [address] Name: JACK PANDA Address: [address] [place] [address]
--- OUTSIDE RECORDS SUMMARY | 2023-06-19 12:42 | XMS_ITS | Continuity of Care Document ---
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 Name Role Phone Matteo Beltran DO Primary Care Physician Encounter [facility] R [id number] Date(s): 05/28/23 - 05/28/[address] [address]- Discharge Disposition: A-D/C Walkout Attending Physician: Not on Staff, Attending MD Admitting Physician: Not on Staff, Admitting MD Referring Physician: Not on Staff, Referring MD Allergies, Adverse Reactions, Alerts Substance Reaction Severity Status ibuprofen decreased kidney function Ac tive aspirin decresed kidney function Act nina Toradol 1 decreased kidney function Ac tive Robaxin itching Active Valium difficulty breathing Active Vicodin itching Active 1Pt states he is not allergic to this medication Immunizations Given and Recorded Vaccine Date Status Refusal Reason [id number] 12y+ bivalent booster vax 1 07/17/22 Given [...] 11/25/22 Status: Ordered B-D PEN NDL MINI [id number](12/11)PRPL USE DIRECTED FOR TYPE 1 DIABETES Start Date: 11/25/22 Status: Ordered Baqsimi One Pack 3 mg nasal powder See Instructions, 3 mg Once In one nostril; dose does not need to be inhaled may repeat in 15 minutes alternate nostrils, # 1 each, 5 Refills, Soft Stop, 09/19/22 22:47:00 EST, [facility] #[id number], Partial fill upon patient request if the [...] Maintenance, 09/30/22 13:35:00 EST, Route toPharmacy Electronically, [facility] #[id number], 168, cm, 09/19/22 14:56:00 EST, Height, 60.2,kg, [...] Refills, Soft Stop,09/19/22 22:51:00 EST, Chew Tablet, [facility] #[id number], Partial fill upon patient request if the prescription is for a schedule II opioid drug... Start Date: 09/19/22 Status: Ordered Lantus Solostar Pen 100 units/mL subcutaneous solution See Instructions, Please take 20 units at bedtime E11.8, # 45 mL, 3 Refills, Maintenance, 12/29/22 8:07:00 EDT, Injection, [facility] #[id number], Partial fill upon patient request if the prescription is for a schedule II opioid drug., 168, cm,... Start Date: 12/29/22 Status: Ordered levothyroxine 0.025 mg oral tablet 1.5 tablet, By Mouth, Daily, # 45 tablet, 10 Refills, Maintenance, 01/12/23 16:11:00 EDT, [facility] #[id number], 168, cm, 12/26/22 16:32:00 EDT, Height, 72.7, kg, 12/20/22 14:52:00 EDT, Dry Weight Start Date: 01/12/23 Status: Ordered multivitamin Vitamin B Complex with C and Folic Acid oral capsule TAKE 1 CAPSULE BY MOUTH ONCE DAILY Start Date: 11/25/22 Status: Ordered Pen [place], 31 G x 5 mm BD Ultra [...] Refills, Maintenance, 07/10/22 12:57:00 EDT, XR Tablet, [facility] #[id number], Partial... Start Date: 07/10/22 Stop Date: 08/09/22 Status: Ordered Trulicity Pen 1.5 mg/0.5 mL subcutaneous solution 0.5 mL = 1.5 mg, Subcutaneous Injection, Every week, rotate injection sites, # 2.5 mL, 6 Refills, Maintenance, 04/10/23 14:42:00 EDT, Solution, [facility] #[id number], Partial fill upon patient request if the [...] sleep apnea) Confirmed Active N Care Management [facility] Care, Vernell Rui [phone] Confirmed Active Subclinical hypothyroidism Confirmed Active 1Weighed 1.5 pounds at . 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 Vital Signs Most recent to oldest [Reference Range]: 1 2 Height 170 cm (05/28/23 6:29 PM) 170 cm (05/28/23 6:17 PM) Oxygen Saturation [94-100 %] 97 % (05/28/23 6:17 PM) 95 % (05/28/23 6:14 PM) Pulse Rate [55-90 bpm] 105 bpm *H* (05/28/23 6:17 PM) 104 bpm *H* (05/28/23 6:14 PM) Blood Pressure [90-138/55-84 mm Hg] 239/ 118mm Hg *H* (05/28/23 6:17 PM) Respiratory Rate [16-30 br/min] 18 br/mi n (05/28/23 6:17 PM) Temperature [96.8-100.4 DegF] 98.1 DegF (05/28/23 6:17 PM) Mode of Delivery (Oxygen) Room air (05/28/23 6:17 PM) Blood pressure sites Arm, left (05/28/23 6:17 PM) Temperature Route Oral (05/28/23 6:17 PM) Dry Weight 68.5 kg (05/28/23 6:29 PM) 68.5 kg (05/28/23 6:17 PM) Dry Weight Obtained Via Patient/family s tated (05/28/23 6:17 PM) Social History Social History Type Response Smoking Status Never smoker; Tobacc o user in household: No entered on: 09/12/15 Sex Patient Care team information Care Team Personnel Name: Desmond Anton RN Position: [facility] RN Member Role: Primary Care Nurse Name: Eliza Ch RN Position: [facility] RN Member Role: Primary Care Nurse Name: Izzy Cooper Position: [facility] RN Member Role: Primary Care Nurse Name: Elie Alex MD Position: [facility] Renal MD Member Role: Lifetime Consulting Physician Address: Address: [address] [place] [address], [address] [facility] [address] Name: Rayray Brand Position: [facility] [...] Care Nurse Name: Sissy Powers RN Position: [facility] RN Member Role: Primary Care Nurse Name: Link Stein RN Position: [facility] RN Víctor Member Role: Primary Care Nurse Name: Isai Weaver DO Position: [facility] Renal MD Member Role: Lifetime Consulting Physician Address: Address: [address] [place], [place] [address] [place] [address]- [place] Name: Lor Abdullahi RN Position: [facility] RN Member Role: Primary Care Nurse Name: Charity Billings RN Position: [facility] RN Member Role: Primary Care Nurse Name: Trae Hawkins III, RN Position: [facility] RN Member Role: Primary Care Nurse Name: Yamini Soares Position: [facility] RN Member Role: Primary Care Nurse Name: Marcus Ardon RN Position: [facility] RN Member Role: Primary Care Nurse Name: Jaison Sherwood MD Position: [facility] Renal MD Member Role: Lifetime Consulting Physician Address: Address: [address] [place] [address] [address] [facility] [place] [address]- [place] Name: Anna White RN Position: [facility] AMB Nurse Member Role: Primary Care Nurse Name: Marleny Sanchez RN Position: [facility] RN Member Role: Primary Care Nurse Name: Matteo Beltran DO Position: [facility] Resident Member Role: PCP Address: Address: [address] [place] [address]- Name: Gabriel Chappell MD Position: [facility] Renal MD Member Role: Lifetime Consulting Physician Address: Address: [address] [place] [address] [facility] [place] [address]- [place] Name: Muriel Page RN Position: [facility] SN RN Member Role: Primary Care Nurse Name: Marielena Sheehan RN Position: [facility] RN Member Role: Primary Care Nurse Name: Nadia Hernandez RN Position: [facility] RN Member Role: Primary Care Nurse Name: Елена Jules RN Position: [facility] RN Member Role: Primary Care Nurse Care Team Related Persons Name: CAMI ELIAS Address: [address] [place] [address] Name: HERMILO PANDA Address: home [address] [place] [id number] Name: JACK PANDA Address: [place] [id number]
--- OUTSIDE RECORDS SUMMARY | 2023-06-19 12:42 | XMS_ITS | Continuity of Care Document ---
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 Name Role Phone Arleen Cooper MD Primary Care Physician Encounter [facility] [place] Date(s): 07/17/22 - 08/16/22 [facility] [address] [place] [address]- [place] Allergies, Adverse Reactions, Alerts Substance Reaction Severity Status ibuprofen decreased kidney function Ac tive aspirin decresed kidney function Act nina Toradol 1 decreased kidney function Ac tive Robaxin itching Active Valium difficulty breathing Active Vicodin itching Active 1Pt states he is not allergic to this medication Immunizations Given and Recorded Vaccine Date Status Refusal Reason [id number] 12y+ bivalent booster vax 1 07/17/22 Given [...] Note: vis Medications B-D PEN NDL SHRT [id number](02/10) COOPER B-D PEN NDL SHRT [id number](02/10) COOPER, See Instructions, # 100 each, 0 [...] 2 Refills, Maintenance, 06/29/22 11:32:00 EDT, Solution, [facility] #[id number], Partial fillupon patient request if the prescription is... Start Date: 06/29/22 Status: Ordered insulin lispro (concentrated) 200 units/mL subcutaneous solution See Instructions, 3 units Subcutaneous Infusion for FSBS of every 100 and 1 unit additional for every 40 above 100, # 12 mL, 3 Refills, Maintenance, 06/29/22 14:22:00 EDT, [facility] #[id number], Partial fill upon patient request if the prescript... Start Date: 06/29/22 Status: Ordered levothyroxine 0.025 mg oral tablet 1.5 tablet, By Mouth, Daily, # 135 tablet, 0 Refills, [facility] #[id number], 167.64, cm, 01/23/22 11:51:00 EDT, Height, 63.7, kg, 01/30/21 22:32:00 EDT, Dry Weight Start Date: 03/27/22 Status: Ordered midodrine 5 mg oral tablet 10 mg, 2, tablet, By Mouth, 3 times a day, # 180 tablet, Refills 0, Tot. Refills 0, Maintenance, 08/15/22 15:02:00 EST, Route to Pharmacy Electronically, [facility] #[id number], Partial fill upon patient request if the prescription is for a sched... Start Date: 08/15/22 Status: Ordered multivitamin Multiple Vitamins oral capsule 1 capsule, By Mouth, Daily, # 30 capsule, 0 Refills, Maintenance, 06/28/22 11:24:00 EDT, Capsule, [facility] #[id number], Partial fill upon patient request if the [...] 06/28/22 Stop Date: 07/28/22 Status: Ordered Pen [place], 31 G x 5 mm BD Ultra [...] 0 Refills, Maintenance, 06/28/22 11:25:00 EDT, Tablet, [facility] #[id number], Partial fill upon patient request if the prescription is for a schedule II opioid drug., 167, cm, 06/28/22 8:15:00 EDT,... Start Date: 06/28/22 Status: Ordered PROzac 20 mg oral capsule 20 mg, 1, capsule, By Mouth, Daily, # 30 capsule, Refills 0, Tot. Refills 0, Maintenance, 07/10/22 11:33:00 EDT, Route to Pharmacy Electronically, [facility] #[id number], Partial fill upon patient request if the [...] 09/08/22 11:34:00 EST, 07/10/22 11:34:00 EDT, Tablet, [facility] #[id number]... Start Date: 07/10/22 Stop Date: 09/08/22 Status: Ordered tacrolimus 1 mg oral tablet, extended release = 8 mg, By Mouth, Daily in AM, Please take tacrolimus 8 mg PO daily in AM and f/u with nephrologistfor level monitoring and dose adjustment., # 30 tablet, 0 Refills, Maintenance, 07/10/22 12:57:00 EDT, XR Tablet, [facility] #[id number], Partial... Start Date: 07/10/22 Stop Date: 08/09/22 Status: Ordered tamsulosin 0.4 mg oral capsule 0.4 mg, 1, capsule, By Mouth, Daily, # 30 capsule, Refills 0, Tot. Refills 0, Maintenance, :30:00 EDT, Route to Pharmacy Electronically, [facility] #[id number], Partial fill upon patient request if the prescription is for a schedule II... Start Date: 07/21/22 Status: Ordered valganciclovir 450 mg oral tablet 450 mg, 1, tablet, By Mouth, Every Thursday, Thursday and Thursday, # 26 tablet, Refills 1, Tot. Refills 1, Maintenance, 06/28/22 11:26:00 EDT, Route to Pharmacy Electronically, [facility] #[id number], Partial fill upon patient request if the [...] apnea) Confirmed Active [facility] Vernell Rui [phone] Confirmed Active Subclinical hypothyroidism Confirmed Active 1Weighed [...] Care Nurse Name: Elie Alex MD Position: [facility] Renal MD Member Role: Lifetime Consulting Physician Address: Address: [address] [place] [address], [address] [facility] [place] [address]- Name: Rayray Brand Position: [facility] Physician (General Medicine) Member Role: Primary Care Nurse Name: Liudmila Hinds Position: [facility] RN Member Role: Primary Care Nurse Name: Kannan Gibbs RN Position: [facility] RN Member Role: Primary Care Nurse Name: Chase Brumfield RN Position: [facility] ED RN W/OE and Tasks Member Role: Primary Care Nurse Name: Sissy Powers RN Position: [facility] RN Member Role: Primary Care Nurse Name: Link Stein RN Position: [facility] RN Víctor Member Role: Primary Care Nurse Name: Isai Weaver DO Position: [facility] Renal MD Member Role: Lifetime Consulting Physician Address: Address: [address] [place], [place] [address]E [facility] [place] [address]- Name: Lor Abdullahi RN Position: [facility] RN Member Role: Primary Care Nurse Name: Charity Billings RN Position: [facility] RN Member Role: Primary Care Nurse Name: Trae Hawkins III, RN Position: [facility] RN Member Role: Primary Care Nurse Name: Geoffrey Davis RN Position: [facility] RN Member Role: Primary Care Nurse Name: Yamini Soares Position: S RN Member Role: Primary Care Nurse Name: Marcus Ardon RN Position: S RN Member Role: Primary Care Nurse Name: Jaison Sherwood MD Position: [facility] Renal MD Member Role: Lifetime Consulting Physician Address: Address: [address] [place] [address] Ave [address] [facility] [place] [address]- [place] Name: Anna White RN Position: [facility] AMB Nurse Member Role: Primary Care Nurse Name: Marleny Sanchez RN Position: [facility] RN Member Role: Primary Care Nurse Name: Gabriel Chappell MD Position: [facility] Renal MD Member Role: Lifetime Consulting Physician Address: Address: [address] [facility] [place] [address]- [place] Name: Muriel Page RN Position: [facility] SN RN Member Role: Primary Care Nurse Name: Marielena Sheehan RN Position: [facility] RN Member Role: Primary Care Nurse Name: Nadia Hernandez RN Position: [facility] RN Member Role: Primary Care Nurse Name: Alyssa Nguyen RN Position: [facility] RN Member Role: Primary Care Nurse Name: Елена Jules RN Position: [facility] RN Member Role: Primary Care Nurse Name: Arleen Cooper MD Position: [facility] Primary Care Physician Member Role: PCP Address: Address: [address] [place] [address]- Care Team Related Persons Name: CAMI ELIAS Address: home [address] [place] [address] Name: HERMILO PANDA Address: [address] [address] Name: JACK PANDA Address: home [address] [place] [address]
--- OUTSIDE RECORDS SUMMARY | 2023-06-19 12:42 | XMS_ITS | Continuity of Care Document ---
Author Name Unknown Organization [facility] Address [address] [facility] [address] [place] [address]- Care Team Providers Care Anthropology Department Chair Name Role Phone Matteo Beltran DO Primary Care Physician [place] [facility] [place]/14[place]23 - 06/13/23 [facility] [address] [facility] [address] [place] [address]- Attending Physician: Enid Maharaj Admitting Physician: Eind Maharaj Referring Physician: Enid Maharaj Allergies, Adverse Reactions, Alerts Substance Reaction Severity Status ibuprofen decreased kidney function Ac tive aspirin decresed kidney function Act nina Toradol 1 decreased kidney function Ac tive Robaxin itching Active Valium difficulty breathing Active Vicodin itching Active 1Pt states he is not allergic to this medication Immunizations Given and Recorded Vaccine Date Status Refusal Reason [id number] 12y+ bivalent booster vax 1 07/17/22 Given [...] 11/25/22 Status: Ordered B-D PEN NDL MINI [id number](12/11)PRPL USE DIRECTED FOR TYPE 1 DIABETES Start Date: 11/25/22 Status: Ordered Baqsimi One Pack 3 mg nasal powder See Instructions, 3 mg Once In one nostril; dose does not need to be inhaled may repeat in 15 minutes alternate nostrils, # 1 each, 5 Refills, Soft Stop, 09/19/22 22:47:00 EST, [facility] #[id number], Partial fill upon patient request [...] 0 Refills, Maintenance, 06/12/23 10:55:00 EDT, Capsule, [facility] #[id number], Partial fill upon patient request if the prescription is for a schedule II opioid drug., 168, c... Start Date: 06/12/23 Stop Date: 07/12/23 Status: Ordered cinacalcet 30 mg oral tablet = 60 mg, By Mouth, Daily, # 30 tablet, 0 Refills, Maintenance, 06/12/23 10:55:00 EDT, Tablet, [facility] #[id number], Partial fill upon patient request if the prescription is for a schedule II opioid drug., 168, cm, 06/12/23 7:13:00 EDT, Height,... Start Date: 06/12/23 Stop Date: 07/12/23 Status: Ordered FLUoxetine 20 mg oral capsule 1, capsule, By Mouth, Daily, # 30 capsule, Refills 11, Maintenance, 09/30/22 13:35:00 EST, Route toPharmacy Electronically, [facility] #[id number], 168, cm, 09/19/22 14:56:00 EST, Height, 60.2,kg, [...] Refills, Soft Stop,09/19/22 22:51:00 EST, Chew Tablet, [facility] #[id number], Partial fill upon patient request if the prescription is for a schedule II opioid drug... Start Date: 09/19/22 Status: Ordered Lantus Solostar Pen 100 units/mL subcutaneous solution See Instructions, Please take 20 units at bedtime E11.8, # 45 mL, 3 Refills, Maintenance, 12/29/22 8:07:00 EDT, Injection, [facility] #[id number], Partial fill upon patient request if the prescription is for a schedule II opioid drug., 168, cm,... Start Date: 12/29/22 Status: Ordered levothyroxine 0.025 mg oral tablet 1.5 tablet, By Mouth, Daily, # 45 tablet, 10 Refills, Maintenance, 01/12/23 16:11:00 EDT, [facility] #[id number], 168, cm, 12/26/22 16:32:00 EDT, Height, 72.7, [...] 06/12/23 10:55:00 EDT, Route to Pharmacy Electronically, [facility] #[id number], Partial fill upon patientrequest if the prescription is for a schedule II op... Start Date: 06/12/23 Stop Date: 07/12/23 Status: Ordered Pen [place], 31 G x 5 mm BD Ultra [...] Refills, Maintenance, 07/10/22 12:57:00 EDT, XR Tablet, [facility] #[id number], Partial... Start Date: 07/10/22 Stop Date: 08/09/22 Status: Ordered traMADol 50 mg oral tablet 1 tablet = 50 mg, By Mouth, Every 12 hours, PRN as needed for pain, for 5 days, # 10 tablet, 0 Refills, Acute 06/17/23 11:55:00 EDT, 06/12/23 11:55:00 EDT, Tablet, [facility] #[id number], Partial fill upon patient request if the prescription is f... Start Date: 06/12/23 Stop Date: 06/17/23 Status: Ordered Trulicity Pen 1.5 mg/0.5 mL subcutaneous solution 0.5 mL = 1.5 mg, Subcutaneous Injection, Every week, rotate injection sites, # 2.5 mL, 6 Refills, Maintenance, 04/10/23 14:42:00 EDT, Solution, [facility] #[id number], Partial fill upon patient request if the [...] sleep apnea) Confirmed Active N Care Management [facility], Vernell Fabian [phone] Confirmed Active Subclinical hypothyroidism Confirmed Active 1Weighed [...] Personnel Name: Desmond Anton RN Position: [facility] RN Member Role: Primary Care Nurse Name: Eliza Ch RN Position: [facility] RN Member Role: Primary Care Nurse Name: Izzy Cooper Position: [facility] RN Member Role: Primary Care Nurse Name: Elie Alex MD Position: [facility] Renal MD Member Role: Lifetime Consulting Physician Address: Address: [address] [place] [address], [address] [facility] [place] [address]- Name: Rayray Brand Position: [facility] Physician (General Medicine) Member Role: Primary Care Nurse Name: Jaziel Flowers RN Position: [facility] RN Member Role: Primary Care Nurse Name: Liudmila Hinds Position: [facility] RN Member Role: Primary Care Nurse Name: Kannan Gibbs RN Position: [facility] RN Member Role: Primary Care Nurse Name: Chase Brumfield RN Position: [facility] ED RN W/OE and Tasks Member Role: Primary Care Nurse Name: Sissy Powers RN Position: [facility] RN Member Role: Primary Care Nurse Name: Link Stein RN Position: [facility] RN Supv Member Role: Primary Care Nurse Name: Isai Weaver DO Position: [facility] Renal MD Member Role: Lifetime Consulting Physician Address: Address: [address] [place], [place] [address]E [facility] [place] [address]- Name: Lor Abdullahi RN Position: [facility] RN Member Role: Primary Care Nurse Name: Charity Billings RN Position: [facility] RN Member Role: Primary Care Nurse Name: Trae Hawkins III, RN Position: [facility] RN Member Role: Primary Care Nurse Name: Yamini Soares Position: [facility] RN Member Role: Primary Care Nurse Name: Marcus Ardon RN Position: [facility] RN Member Role: Primary Care Nurse Name: Jaison Sherwood MD Position: [facility] Renal MD Member Role: Lifetime Consulting Physician Address: Address: [address] [place] [address] [address] [facility] [place] [address]- [place] Name: Anna White RN Position: [facility] AMB Nurse Member Role: Primary Care Nurse Name: Mery Benavides Position: [facility] Associate Professional Member Role: Lifetime Consulting Provider Address: Address: [address] [place] [address] [place] [address]- Name: Marleny Sanchez RN Position: [facility] RN Member Role: Primary Care Nurse Name: Matteo Beltran DO Position: [facility] Resident Member Role: PCP Address: Address: [address] [place] [address]- Name: Gabriel Chappell MD Position: [facility] Renal MD Member Role: Lifetime Consulting Physician Address: Address: [address] [facility] [place] [address]- Name: Muriel Page RN Position: [facility] SN RN Member Role: Primary Care Nurse Name: Marielena Sheehan RN Position: [facility] RN Member Role: Primary Care Nurse Name: Nadia Hernandez RN Position: S RN Member Role: Primary Care Nurse Name: Gina Wallace LPN Position: S RN Member Role: Primary Care Nurse Name: Елена Jules RN Position: [facility] RN Member Role: Primary Care Nurse Care Team Related Persons Name: CAMI ELIAS Address: home [address] [place] [address] Name: HERMILO PANDA Address: [address] [address] Name: JACK PANDA Address: home [address] [place] [address]
--- OUTSIDE RECORDS SUMMARY | 2023-06-19 12:42 | XMS_ITS | Continuity of Care Document ---
Author Name Unknown Organization [facility] Address [address] [place] [address]- Care Team Providers Care Employment Programs Analyst Name Role Phone Arleen Cooper MD Primary Care Physician [place] [facility] [place](s): 09/08/19 - 09/18/19 [facility] [address] [facility] [address] [place] [address]- [facility] Attending Physician: Enid Maharaj Admitting Physician: Enid [...] Compound Start Date: 06/23/19 Status: Ordered Pen [place], 31 G x 5 mm BD Ultra [...] 1 Active HTN (hypertension)(Confirmed) Active Care Management [facility] [phone](Confirmed) Active Subclinical hypothyroidism(Confirmed) Active 1Weighed 1.5 pounds [...]
--- OUTSIDE RECORDS SUMMARY | 2023-06-19 12:42 | XMS_ITS | Continuity of Care Document ---
Author Name Unknown Organization [facility] Address [address] [place] [address]- Care Team Providers Care Shell Reprint Operator Name Role Phone Arleen Cooper MD Primary Care Physician [place] [facility] [place] [place] [id number] Date(s): 04/18/21 - 05/18/[address] [address] Attending Physician: Admjessie, Kurt8 Admitting Physician: Admtr, Enid Referring Physician: Admtr, [...] 02/18/21 16:31:00 EDT, Route to Pharmacy Electronically, [facility] #[id number], Partial fill upon patientrequest if the prescription is for a schedule II op... Start Date: 02/18/21 Stop Date: 08/17/21 Status: Ordered B-D PEN NDL SHRT [id number](02/10) COOPER B-D PEN NDL SHRT [id number](02/10) COOPER, See Instructions, # 100 each, 0 [...] 07/18/20 11:05:00 EDT, Route to Pharmacy Electronically, [facility], 167.64, cm, 07/12/20 8:38:00 EDT, Height, 70, kg, 04/11/20 15:19:00... 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 Start Date: 04/19/20 Stop Date: 06/18/20 Status: Ordered Lantus Solostar Pen 100 units/mL subcutaneous solution = 35 units, Subcutaneous Injection, Daily at bedtime, # 12 mL, 11 Refills, Maintenance, 03/12/21 16:28:00 EDT, [facility] #[id number], 167.64, cm, 02/28/21 10:34:00 EDT, Height, 63.7, kg, 01/30/21 22:32:00 EDT, Dry Weight Start Date: 03/12/21 Status: Ordered levothyroxine 0.025 mg oral tablet 1.5 tablet = 37.5 mcg, By Mouth, Daily, # 135 tablet, 0 Refills, Maintenance, 03/27/21 10:58:00 EDT, Tablet, [facility], 167.64, cm, 02/28/21 10:34:00 EDT, Height, 63.7, kg, 01/30/2122:32:00 EDT, Dry Weight Start Date: 03/27/21 Status: Ordered Pen [place], 31 G x 5 mm BD Ultra [...] pack/packet, 1 Refills, Maintenance, 06/21/20 16:51:00 EDT, [facility], Deliver to pt in [...] sleep apnea)(Confirmed) Active Care Management [facility] (Confirmed) Active Subclinical hypothyroidism(Confirmed) Active 1Weighed 1.5 pounds at . 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
--- OUTSIDE RECORDS SUMMARY | 2023-06-19 12:42 | XMS_ITS | Continuity of Care Document ---
Author Name Unknown Organization [facility] Address [address] [place] [address]- Care Team Providers Care Psychologist Counseling Name Role Phone Kenneth CLARKE, Arleen Primary Care Physician [phone] Encounter [facility] [place] Date(s): 01/09/22 - 02/08/22 [facility] [address] [place] [address]- Attending Physician: AdmEnid roman Admitting Physician: AdmtrEnid [...] 02/18/21 16:31:00 EDT, Route to Pharmacy Electronically, [facility] #[id number], Partial fill upon patientrequest if the prescription is for a schedule II op... Start Date: 02/18/21 Stop Date: 08/17/21 Status: Ordered B-D PEN NDL SHRT [id number](02/10) COOPER B-D PEN NDL SHRT [id number](02/10) COOPER, See Instructions, # 100 each, 0 [...] 07/18/20 11:05:00 EDT, Route to Pharmacy Electronically, [facility], 167.64, cm, 07/12/20 8:38:00 EDT, Height, 70, kg, 04/11/20 15:19:00... Start Date: 07/18/20 Stop Date: 08/17/20 Status: Ordered Envarsus XR 1 mg oral tablet, extended release 4 tablet = 4 mg, By Mouth, Daily in AM, # 240 tablet, 0 Refills, Maintenance, 04/12/20 12:33:00 EDT, [facility], 167.64, cm, 04/12/20 4:21:00 [...] 01/23/22 16:09:00 EDT, Route to Pharmacy Electronically, [facility] #[id number], Partial fill upon patient request if the prescription is for a jana... Start Date: 01/23/22 Status: Ordered Kayexcelate Powder Kayexcelate Powder, 30 grams, By Mouth, Daily, # 454 Gm, Refills 1, Tot. 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 Start Date: 04/19/20 Stop Date: 06/18/20 Status: Ordered Lantus Solostar Pen 100 units/mL subcutaneous solution = 35 units, Subcutaneous Injection, Daily at bedtime, # 12 mL, 11 Refills, Maintenance, 01/18/22 14:50:00 EDT, [facility] #[id number], 167.64, cm, 01/09/22 13:27:00 EDT, Height, 63.7, kg, 01/30/21 22:32:00 EDT, Dry Weight Start Date: 01/18/22 Status: Ordered levothyroxine 0.025 mg oral tablet 1.5 tablet = 37.5 mcg, By Mouth, Daily, You are due for thyroid lab work. Go to the lab, # 45 tablet, 0 Refills, Maintenance, 01/18/22 14:50:00 EDT, Tablet, [facility] #[id number], 167.64, cm, 01/09/22 13:27:00 EDT, Height, 63.7, kg, 01/30/21 22:... Start Date: 01/18/22 Status: Ordered Pen [place], 31 G x 5 mm BD Ultra [...] pack/packet, 1 Refills, Maintenance, 06/21/20 16:51:00 EDT, [facility], Deliver to pt in [...] pain(Confirmed) Active ADAM (obstructive sleep apnea)(Confirmed) Active [facility] Care Management [facility] , Vernell Fabian [phone](Confirmed) Active Subclinical hypothyroidism(Confirmed) Active 1Weighed 1.5 pounds at . 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
--- OUTSIDE RECORDS SUMMARY | 2023-06-19 12:43 | XMS_ITS | Continuity of Care Document ---
Author Name Unknown Organization [facility] Address [address] [place] [address]- Care Team Providers Care Receiving And Processing Supervisor Name Role Phone Kenneth CLARKE, Arleen Primary Care Physician Encounter [facility] Date(s): 08/14/22 - 09/13/[address] [address]- Allergies, Adverse Reactions, Alerts Substance Reaction Severity Status ibuprofen decreased kidney function Ac tive aspirin decresed kidney function Act nina Toradol 1 decreased kidney function Ac tive Robaxin itching Active Valium difficulty breathing Active Vicodin itching Active 1Pt states he is not allergic to this medication Immunizations Given and Recorded Vaccine Date Status Refusal Reason [id number] 12y+ bivalent booster vax 1 07/17/22 Given [...] Note: vis Medications B-D PEN NDL SHRT [id number](02/10) COOPER B-D PEN NDL SHRT [id number](02/10) COOPER, See Instructions, # 100 each, 0 [...] 09/02/22 15:33:00 EST, Route to Pharmacy Electronically, [facility] #[id number], 168, cm, 07/30/22 15:53:00 EDT, Height, 60.2, kg, 07/24/22 0:30:00 EDT, Dry Weight Start Date: 09/02/22 Status: Ordered insulin glargine (concentrated) 300 units/mL subcutaneous solution See Instructions, 25 units s/c in the AM at the same time every day rotate injection sites, # 12 mL, 2 Refills, Maintenance, 06/29/22 11:32:00 EDT, Solution, [facility] #[id number], Partial fillupon patient request if the prescription is... Start Date: 06/29/22 Status: Ordered insulin lispro (concentrated) 200 units/mL subcutaneous solution See Instructions, 3 units Subcutaneous Infusion for FSBS of every 100 and 1 unit additional for every 40 above 100, # 12 mL, 3 Refills, Maintenance, 06/29/22 14:22:00 EDT, [facility] #[id number], Partial fill upon patient request if the prescript... Start Date: 06/29/22 Status: Ordered levothyroxine 0.025 mg oral tablet 1.5 tablet, By Mouth, Daily, # 135 tablet, 0 Refills, [facility] #[id number], 167.64, cm, 01/23/22 11:51:00 EDT, Height, 63.7, kg, 01/30/21 22:32:00 EDT, Dry Weight Start Date: 03/27/22 Status: Ordered multivitamin Multiple Vitamins oral capsule 1 capsule, By Mouth, Daily, # 30 capsule, 0 Refills, Maintenance, 09/04/22 11:03:00 EST, Capsule, [facility] #[id number], Partial fill upon patient request if the prescription is for a schedule II opioid drug., 1 capsule By Mouth Daily,x30 days,... Start Date: 09/04/22 Stop Date: 10/04/22 Status: Ordered Pen [place], 31 G x 5 mm BD Ultra [...] 0 Refills, Maintenance, 06/28/22 11:25:00 EDT, Tablet, [facility] #[id number], Partial fill upon patient request if the prescription is for a schedule II opioid drug., 167, cm, 06/28/22 8:15:00 EDT,... Start Date: 06/28/22 Status: Ordered PROzac 20 mg oral capsule 20 mg, 1, capsule, By Mouth, Daily, # 30 capsule, Refills 0, Tot. Refills 0, Maintenance, 09/04/22 11:03:00 EST, Route to Pharmacy Electronically, [facility] #[id number], Partial fill upon patient request if the [...] Refills, Maintenance, 07/10/22 12:57:00 EDT, XR Tablet, [facility] #[id number], Partial... Start Date: 07/10/22 Stop Date: 08/09/22 Status: Ordered tamsulosin 0.4 mg oral capsule 0.4 mg, 1, capsule, By Mouth, Daily, # 30 capsule, Refills 0, Tot. Refills 0, Maintenance, :30:00 EDT, Route to Pharmacy Electronically, [facility] #[id number], Partial fill upon patient request if the prescription is for a schedule II... Start Date: 07/21/22 Status: Ordered valganciclovir 450 mg oral tablet 450 mg, 1, tablet, By Mouth, Every Thursday, Thursday and Thursday, # 26 tablet, Refills 1, Tot. Refills 1, Maintenance, 06/28/22 11:26:00 EDT, Route to Pharmacy Electronically, [facility] #[id number], Partial fill upon patient request if the [...] Active ADAM (obstructive sleep apnea) Confirmed Active [facility] Care Management [facility], Vernell Rui [phone] Confirmed Active Subclinical hypothyroidism Confirmed Active 1Weighed 1.5 pounds at . 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 Social History Social History Type Response Smoking Status Never smoker; Tobacc o user in household: No entered on: 09/12/15 Sex Patient Care team information Care Team Personnel Name: Desmond Anton RN Position: [facility] RN Member Role: Primary Care Nurse Name: Eliza Ch RN Position: [facility] RN Member Role: Primary Care Nurse Name: Izzy Cooper Position: [facility] RN Member Role: Primary Care Nurse Name: Elie Alex MD Position: [facility] Renal MD Member Role: Lifetime Consulting Physician Address: Address: [address] [place] [address], [address] [facility] [address] Name: Rayray Brand Position: [facility] Physician (General Medicine) Member Role: Primary Care Nurse Name: Liudmila Hinds Position: [facility] RN Member Role: Primary Care Nurse Name: Knanan Gibbs RN Position: [facility] RN Member Role: Primary Care Nurse Name: Chase Brumfield RN Position: [facility] ED RN W/OE and Tasks Member Role: Primary Care Nurse Name: Sissy Powers RN Position: [facility] RN Member Role: Primary Care Nurse Name: Link Stein RN Position: [facility] RN Supv Member Role: Primary Care Nurse Name: Isai Weaver DO Position: [facility] Renal MD Member Role: Lifetime Consulting Physician Address: Address: [address] [place], [place] [address] [place] [address]- Name: Lor Abdullahi RN Position: [facility] RN Member Role: Primary Care Nurse Name: Charity Billings RN Position: [facility] RN Member Role: Primary Care Nurse Name: Trae Hawkins III, RN Position: [facility] RN Member Role: Primary Care Nurse Name: Geoffrey Davis RN Position: [facility] RN Member Role: Primary Care Nurse Name: Yamini Soares Position: [facility] RN Member Role: Primary Care Nurse Name: Marcus Ardon RN Position: [facility] RN Member Role: Primary Care Nurse Name: Jaison Sherwood MD Position: [facility] Renal MD Member Role: Lifetime Consulting Physician Address: Address: [address] [place] [address] [address] [facility] [place] [address]- Name: Anna White RN Position: [facility] AMB Nurse Member Role: Primary Care Nurse Name: Marleny Sanchez RN Position: [facility] RN Member Role: Primary Care Nurse Name: Gabriel Chappell MD Position: [facility] Renal MD Member Role: Lifetime Consulting Physician Address: Address: [address] [place] [address] [facility] [place] [address]- Name: Muriel Page RN Position: [facility] SN RN Member Role: Primary Care Nurse Name: Marielena Sheehan RN Position: [facility] RN Member Role: Primary Care Nurse Name: Nadia Hernandez RN Position: [facility] RN Member Role: Primary Care Nurse Name: Alyssa Nguyen RN Position: [facility] RN Member Role: Primary Care Nurse Name: Елена Jules RN Position: [facility] RN Member Role: Primary Care Nurse Name: Arleen Cooper MD Position: [facility] Primary Care Physician Member Role: PCP Address: Address: [address] [place] [address] [place] Care Team Related Persons Name: CAMI ELIAS Address: [address] [place] [address] Name: HERMILO PANDA Address: home [address] [address] Name: JACK PANDA Address: [address] [place] [address]
--- OUTSIDE RECORDS SUMMARY | 2023-06-19 12:43 | XMS_ITS | Continuity of Care Document ---
Author Name Unknown Organization [facility] ter Address [address] [place] [id number]- Care Team Providers Care Animal Attendant Name Role Phone Matteo Beltran DO Primary Care Physician Encounter [facility] [place](s): 06/14/23 - 06/16/[address] [address]- Encounter Diagnosis Chest pain(Final) - 06/14/23 Discharge Disposition: A-D/C Home Attending Physician: He CLARKE, Clay Owens Admitting Physician: Lilly Dutta MD Referring Physician: [...] and Recorded Vaccine Date Status Refusal Reason [id number] 12y+ bivalent booster vax 1 07/17/22 Given [...] 11/25/22 Status: Ordered B-D PEN NDL MINI [id number](12/11)PRPL USE DIRECTED FOR TYPE 1 DIABETES Start Date: 11/25/22 Status: Ordered Baqsimi One Pack 3 mg nasal powder See Instructions, 3 mg Once In one nostril; dose does not need to be inhaled may repeat in 15 minutes alternate nostrils, # 1 each, 5 Refills, Soft Stop, 09/19/22 22:47:00 EST, [facility] #[id number], Partial fill upon patient request if the [...] 0 Refills, Maintenance, 06/12/23 10:55:00 EDT, Capsule, [facility] #[id number], Partial fill upon patient request if the prescription is for a schedule II opioid drug., 168, c... Start Date: 06/12/23 Stop Date: 07/12/23 Status: Ordered carvedilol 3.125 mg oral tablet 3.125 mg, By Mouth, 2 times a day, # 60 tablet, Refills 0, Tot. Refills 0, Maintenance, 06/15/23 13:07:00 EDT, Route to Pharmacy Electronically, [facility] #[id number], Partial fill upon patientrequest if the prescription is for a schedule II op... Start Date: 06/15/23 Stop Date: 07/15/23 Status: Ordered carvedilol 3.125 mg oral tablet 3.125 mg, Tablet, By Mouth, 06/16/23 9:00:00 EDT Start Date: 06/16/23 Stop Date: 06/16/23 Status: Completed cinacalcet 30 mg oral tablet = 60 mg, By Mouth, Daily, # 30 tablet, 0 Refills, Maintenance, 06/12/23 10:55:00 EDT, Tablet, [facility] #[id number], Partial fill upon patient request if the prescription is for a schedule II opioid drug., 168, cm, 06/12/23 7:13:00 EDT, Height,... Start Date: 06/12/23 Stop Date: 07/12/23 Status: Ordered colchicine 0.6 mg oral tablet See Instructions, 0.5 tablet every thursday,, thursday, thursday, # 20 tablet, Refills 0, Tot.Refills 0, Maintenance, 06/15/23 13:07:00 EDT, Instructions Replace Required Details, Route to Pharmacy Electronically, [facility] #[id number], Pa... Start Date: 06/15/23 Status: Ordered FLUoxetine 20 mg oral capsule 1, capsule, By Mouth, Daily, # 30 capsule, Refills 11, Maintenance, 09/30/22 13:35:00 EST, Route toPharmacy Electronically, [facility] #[id number], 168, cm, 09/19/22 14:56:00 EST, Height, 60.2,kg, [...] Refills, Soft Stop,09/19/22 22:51:00 EST, Chew Tablet, [facility] #[id number], Partial fill upon patient request if the prescription is for a schedule II opioid drug... Start Date: 09/19/22 Status: Ordered HYDROmorphone 2 mg oral tablet 2 mg, Tablet, By Mouth, Every 4 hours, PRN for Pain , Severe, Routine, 06/15/23 14:44:00 EDT Start Date: 06/15/23 Stop Date: 06/17/23 Status: Discontinued Lantus Solostar Pen 100 units/mL subcutaneous solution See Instructions, Please take 20 units at bedtime E11.8, # 45 mL, 3 Refills, Maintenance, 12/29/22 8:07:00 EDT, Injection, [facility] #[id number], Partial fill upon patient request if the prescription is for a schedule II opioid drug., 168, cm,... Start Date: 12/29/22 Status: Ordered levothyroxine 0.025 mg oral tablet 1.5 tablet, By Mouth, Daily, # 45 tablet, 10 Refills, Maintenance, 01/12/23 16:11:00 EDT, [facility] #[id number], 168, cm, 12/26/22 16:32:00 EDT, Height, 72.7, kg, 12/20/22 14:52:00 EDT, Dry Weight Start Date: 01/12/23 Status: Ordered multivitamin Vitamin B Complex with C and Folic Acid oral capsule TAKE 1 CAPSULE BY MOUTH ONCE DAILY Start Date: 11/25/22 Status: Ordered Norvasc 10 mg oral tablet 10 mg, Tablet, By Mouth, 06/16/23 9:00:00 EDT Start Date: 06/16/23 Stop Date: 06/16/23 Status: Completed Norvasc 10 mg oral tablet 10 mg, 1, tablet, By Mouth, Daily, # 30 tablet, Refills 0, Tot. Refills 0, Maintenance, 06/12/23 10:55:00 EDT, Route to Pharmacy Electronically, [facility] #[id number], Partial fill upon patientrequest if the prescription is for a schedule II op... Start Date: 06/12/23 Stop Date: 07/12/23 Status: Ordered Pen [place], 31 G x 5 mm BD Ultra [...] Refills, Maintenance, 07/10/22 12:57:00 EDT, XR Tablet, [facility] #[id number], Partial... Start Date: 07/10/22 Stop Date: 08/09/22 Status: Ordered traMADol 50 mg oral tablet 1 tablet = 50 mg, By Mouth, Every 12 hours, PRN as needed for pain, for 5 days, # 10 tablet, 0 Refills, Acute 06/17/23 11:55:00 EDT, 06/12/23 11:55:00 EDT, Tablet, [facility] #[id number], Partial fill upon patient request if the prescription is f... Start Date: 06/12/23 Stop Date: 06/17/23 Status: Ordered Trulicity Pen 1.5 mg/0.5 mL subcutaneous solution 0.5 mL = 1.5 mg, Subcutaneous Injection, Every week, rotate injection sites, # 2.5 mL, 6 Refills, Maintenance, 04/10/23 14:42:00 EDT, Solution, [facility] #[id number], Partial fill upon patient request if the prescription is for a schedule II opi... Start Date: 04/10/23 Status: Ordered Velphoro 2500 mg (500 mg elemental iron) oral tablet, chewable 1 tablet = 500 mg, Chew, 3 times a day with meals, # 90 tablet, 0 Refills, Maintenance, 06/14/23 18:03:00 EDT, Chew Tablet, Partial fill upon patient request if the prescription is for a schedule II opioid drug. Start Date: 06/14/23 Status: Ordered Problem List Condition Confirmation Course Effective Dates Status H ealth Status Informant ESRD on hemodialysis Confirmed Active Depression Confirmed Active Diabetes mellitus Confirmed Active Hearing loss 1 Confirmed Active -donor kidney transplant recipient 2 Confirmed 04/11/20 Active HTN (hypertension) Confirmed Active Lower back pain Confirmed Active ADAM (obstructive sleep apnea) Confirmed Active N Care Management [facility], Vernell Fabian [phone] Confirmed Active Subclinical hypothyroidism Confirmed Active 1Weighed 1.5 pounds at . 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 Results Radiology Reports * Exam Date Time Procedure Performing Provider Status 06/14/23 11:36 AM Chest 2 Views Frontal and Lat Ann z , Gloria; Auth (Verified) Notes: (Chest 2 Views Frontal and Lat) Reason For Exam: Chest Pain;Other: RESULT: Chest 2 Views Frontal and Lat Chest 2 Views Frontal and Lat Reason: Other:; Chest Pain; Clinical Question(s): Other: COMPARISON: None. FINDINGS: LINES AND TUBES: None. LUNGS AND PLEURA: There are linear opacities in the right lung base. No pleural effusion. No pneumothorax. HEART, MEDIASTINUM AND JASON: Heart is normal in size. Normal mediastinal and hilar contour. BONES AND SOFT TISSUES: No acute abnormality. IMPRESSION: Linear opacities in the right lung base which may represent mild subsegmental atelectasis. WSN: [id number] Ordering Physician: Ronan Hawley Dictated By: Millie Holder MD Dictated Date/Time: 06/14/23 11:41 a Reviewed By: Millie Holder MD Signed By: Millie Holder MD Signed Date/Time: 06/14/23 11:41 am Transcribed By: AMANDA Transcribed Date/Time: 06/14/23 11:39 am Vital Signs Most recent to oldest [Reference Range]: 1 2 3 Height 168 cm (06/16/23 12:05 PM) 168 cm (06/16/23 7:22 AM) 168 cm (06/16/23 7:14 AM) Weight 68 kg (06/14/23 5:32 PM) 68 kg (06/14/23 12:11 PM) 68 kg (06/14/23 10:46 AM) Oxygen Saturation [94-100 %] 92 % *L* (06/16/23 12:05 PM) 92 % *L* (06/16/23 7:22 AM) 94 % (06/16/23 7:14 AM) Pulse Rate [55-90 bpm] 96 bpm *H* (06/16/23 12:05 PM) 97 bpm *H* (06/16/23 8:26 AM) 97 bpm *H* (06/16/23 7:22 AM) Body Mass Index [18.5-24.99 kg/m2] 24.09 kg/m2 (06/14/23 5:32 PM) 24.09 kg/m2 (06/14/23 10:46 AM) Blood Pressure [90-138/55-84 mm Hg] 132/64mm Hg (06/16/23 12:05 PM) 125/65mm Hg (06/16/23 8:27 AM) 125/65mm Hg (06/16/23 8:26 AM) Respiratory Rate [16-30 br/min] 16 br/min (06/16/23 12:05 PM) 18 br/min (06/16/23 9:00 AM) 18 br/min (06/16/23 8:33 AM) Temperature [96.8-100.4 DegF] 98.0 DegF (06/16/23 12:05 PM) 98.7 DegF (06/16/23 7:22 AM) 98.3 DegF (06/16/23 7:14 AM) Mode of Delivery (Oxygen) Room air (06/16/23 12:05 PM) Room air (06/16/23 7:22 AM) Room air (06/16/23 7:14 AM) Blood pressure sites Arm, left (06/16/23 12:05 PM) Arm, left (06/16/23 7:22 AM) Arm, left (06/16/23 7:14 AM) Temperature Route Oral (06/16/23 12:05 PM) Oral (06/16/23 7:22 AM) Oral (06/16/23 7:14 AM) Dry Weight 68 kg (06/14/23 5:32 PM) 68 kg (06/14/23 12:11 PM) 68 kg (06/14/23 10:46 AM) Weight Obtained Via Patient/family state d (06/14/23 5:32 PM) Patient/family stated (06/14/23 10:46 AM) Dry Weight Obtained Via Patient/family s tated (06/14/23 10:46 AM) Social History Social History Type Response Smoking Status Never smoker; Tobacc o user in household: No entered on: 09/12/15 Sex History and physical note * Delia CLARKE, Ziggy Chaudhari: PERFORM Event Display: History and Physical Hospital Authored Date: Patient: ??CHARISMA PANDA ? Age:??48 Years?Sex:??Male?:??1975?? 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 He has had persistent??chest pain??in his anterior chest radiating to his left arm and left back.?? He notes that it is worse with deep inspirations and feels much better??if he sits up or leans forward.?? He has been using tramadol without??sustained relief.?? He has been taking his??new blood pressure medication as prescribed.?? He denies any fever.?? No significant??cough or shortness of breath. ??No??new leg edema or trauma.?? No vomiting, abdominal pain, diarrhea, or urinarysymptoms.?? He has been going to hemodialysis as??prescribed. ?? In the emergency room, the patient has been afebrile and hemodynamically stable. ??No respiratory distress or hypoxia.?? Blood pressure uncontrolled at 193/86 at the time of my evaluation.?? Chestx-ray without??pathology.?? EKG unchanged. ??High-sensitivity troponin values elevated at 149 and 153, but unchanged from previous.?? He was seen by cardiology and started on colchicine??for clinicalpicture consistent with uremic pericarditis. Review of Systems Other than those positives as noted in the HPI above, the remaining comprehensive 14-point review of systems is negative. Objective Measurements?? Height: 168 cm (06/14/23) Weight: 68 kg (06/14/23) Dry Weight: 68 kg (06/14/23) Body Mass Index: 24.09 kg/m2 (06/14/23) ? Vital Signs?? Temperature: 98.3 DegF (06/14/23 19:26:00) Temperature Route: Oral (06/14/23 19:26:00) Pulse Rate:??113 bpm??High (06/14/23 19:26:00) Respiratory Rate: 20 br/min (06/14/23 19:26:00) Systolic Blood Pressure:??192 mm Hg??High (06/14/23 19:26:00) Diastolic Blood Pressure:??85 mm Hg??High (06/14/23 19:26:00) Blood pressure sites: Arm, left (06/14/23 19:26:00) Mean Arterial Pressure: 121 mm Hg (06/14/23 19:26:00) Pulse Pressure: 107 mm Hg (06/14/23 19:26:00) Oxygen Saturation: 94 % (06/14/23 19:26:00) Mode of Delivery (Oxygen): Room air (06/14/23 19:26:00) Early Warning Score: 4 (06/14/23 19:31:15) ? Pain Scores 1 - 10 Pain Scale Score: 10 (17:36) ? Physical Exam General Appearance: Alert, appears stated age, no distress HEENT: Normocephalic, atraumatic, PERRL, EOMI, no scleral icterus, no facial droop, moist mucous membranes Neck: Supple, no JVD, no C-Spine tenderness Cardiac: RRR, S1 & S2 present, no m / r / g appreciated Chest: Clear to auscultation bilaterally, no wheezing / ronchi / rales, no tenderness to percussion Abdomen: Soft, nontender, no distention, no rebound or guarding, no masses, normal bowel sounds in all quadrants Extremities: No clubbing, cyanosis, or edema. 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 He has had persistent chest pain in his anterior chest radiating to his left arm and left back.??He was seen by cardiology and started on colchicine for clinical picture consistent with uremic pericarditis. ?? Chest pain (R07.9) Uremic pericarditis (N18.9):??The patient continues to have??ongoing chest pain??with differential diagnoses including musculoskeletal pain versus uremic pericarditis.??He does notice that the pain is pleuritic and feels better when he sits up or leans forward,??which would go along with??this diagnosis.??He does not have new??ischemic EKG changes??or particular EKG changes consistent with pericarditis. His??high-sensitivity troponin values??are elevated in the setting of??his end-stage renal disease??and??uncontrolled high blood pressure.??Nuclear stress testing and echocardiogram on last admission??last week were all reassuring. -Observation on the medical floor -Monitor serial troponin values,??check TSH and free T4 -Blood pressure control as outlined -Start colchicine 0.3 mg??on non-dialysis days -Monitor for symptom control -Hydromorphone 1 mg IV every 4 hours as needed for persistent pain -Appreciate cardiology consult ?? Hypertensive urgency (I16.0):??The patient's blood pressure is ranging from 156/87 up to 193/86 in the emergency room. This could be worse in the setting of his pain. Continue amlodipine as prescribed. The patient was also receiving lisinopril??10 mg daily on last hospital admission,??but his potassium is at the high end??of normal range.??We will hold off this for now. Start carvedilol 3.125 mg orally twice daily??with careful monitoring of blood pressure,??as??he has had previous labile blood pressure and hypotension. Nephrology will see the patient tomorrow. ?? ESRD on hemodialysis (N18.6):??The patient is due for dialysis tomorrow. We will consult nephrology. Currently no significant acidosis with potassium 4.8.??Mentation is appropriate. We will monitor metabolic panel. Continue calcitriol and Cinacalcet as prescribed. Continue prednisone and tacrolimus as prescribed??for transplant; check tacrolimus level. ?? Diabetes mellitus (E11.9):??Blood sugar currently 167. Continue Lantus 20 units daily at bedtime??this otherwise he has adequate oral intake. Trulicity is nonformulary here. Monitor POC's with??insulin lispro sliding scale coverage. ?? Subclinical hypothyroidism (E03.9):??Continue levothyroxine as prescribed. Check TSH and free T4 as outlined. ?? Depression (F32.A):??Mood appears stable. Continue fluoxetine as prescribed. ?? VTE Prophylaxis:??SCDs for now in the setting of hypertensive urgency. ?VTE Prophylaxis Assessment:??VTE Prophylaxis Ordered ?? Code Status:??FULL. ?Order Code Status:??Code Status Ordered ?? Discharge Planning:??Anticipate discharge home;??1 to 2??days hospitalization. ?? I spent a total of??76 minutes today reviewing the chart / medical records, evaluating the patient,evaluating and interpreting laboratory and imaging data, formulating and discussing the treatment plan, and documenting the encounter. ? Histories Allergies Allergies ?(Active and Proposed [...] function ? Past Medical History/Problem List Active Problems??(10) [facility] Care Management [facility] Vernell Rui [phone] -donor kidney transplant recipient Depression Diabetes mellitus ESRD on hemodialysis Hearing loss HTN (hypertension) Lower back pain ADAM (obstructive sleep apnea) Subclinical hypothyroidism ? Past Surgical History Donor renal transplantation: 04/11/20 AV fistula ? Social History Tobacco Details:??Never smoker, Tobacco user in household: No. ETOH:?? Denies. Drugs:?? Denies. ? Family History No family history??of ESRD or transplant. ? Medications Home Medications Amlodipine (Norvasc 10 mg oral tablet)?10?Milligram?1?tablet?By [...] times per day) Durable Medical Equipment (Pen [place], 31 G x 5 mm BD Ultra Fine III)?See Instructions?for 90?Days?use as directed for Diabetes [id number] Fluoxetine (FLUoxetine 20 mg oral capsule)?1?capsule?By Mouth?Daily Glucagon (Baqsimi One Pack 3 mg nasal powder)?See Instructions?3 mg OnceIn one nostril; dose does not need to be inhaledmay repeat in 15 minutesalternate nostrils Glucose (glucose 4 gm oral tablet, chewable)?4?tab(s)?16?gram?Chew?Once?as needed?as needed for low blood sugar Insulin Glargine (Lantus Solostar Pen 100 units/mL subcutaneous solution)?See Instructions?Please take 20 units at ruaxenhC33.8 Levothyroxine (levothyroxine 0.025 mg oral tablet)?1.5?tab(s)?By Mouth?Daily Miscellaneous Rx (Blood Pressure Monitor)?See Instructions?to be used to check BP daily, Dx: HTN, ESRD on HD, new onset hypotenstion with falls; just stopped nifedipine Miscellaneous Rx (B-D PEN NDL MINI [id number](12/11)PRPL)?USE DIRECTED FOR TYPE 1 DIABETES Miscellaneous Rx (uShip YRIS 2 READER DEVICE)?See Instructions?USE TO CHECK BLOOD SUGAR EVERY 8 HOURS Multivitamin (multivitamin Vitamin B Complex with C and Folic Acid oral capsule)?TAKE 1 CAPSULE BY MOUTH ONCE DAILY PredniSONE (predniSONE 5 mg oral tablet)?1?tab(s)?5?Milligram?By Mouth?Daily?with food or milk sucroferric oxyhydroxide (Velphoro 2500 mg (500 mg elemental iron) oral tablet, chewable)?1?tab(s)?500?Milligram?Chew?3 times a day with meals Tacrolimus (tacrolimus 1 mg oral tablet, extended release)?3?Milligram?By Mouth?Daily in AM?for 30?Days?Please take tacrolimus 8 mg PO daily in AM and f/u with expander for level monitoring and dose adjustment. Tramadol (traMADol 50 mg oral tablet)?1?tab(s)?50?Milligram?By Mouth?Every 12 hours?as needed?as needed for pain?for 5?Days ? Results Recent Labs BLOOD COUNT & DIFF WBC 13.8 k/mm3 (High)?? 06/14/2023 10:40 RBC 3.76 m/mm3 (Low)?? 06/14/2023 10:40 Hgb 11.4 Gm/dL (Low)?? 06/14/2023 10:40 Hct 35.2 % (Low)?? 06/14/2023 10:40 MCV 93.6 femtoliters ()?? 06/14/2023 10:40 MCH 30.3 pg ()?? 06/14/2023 10:40 MCHC 32.4 g/dL (Low)?? 06/14/2023 10:40 Platelet Count 300 k/mm3 ()?? 06/14/2023 10:40 RDW-SD 45.4 femtoliters ()?? 06/14/2023 10:40 MPV 9.3 femtoliters (Low)?? 06/14/2023 10:40 Nucleated RBC (Automated) 0.0 #/100 WBC'S ()?? 06/14/2023 10:40 Abs. NRBC 0.0 k/mm3 ()?? 06/14/2023 10:40 Abs. Neut 11.1 k/mm3 (High)?? 06/14/2023 10:40 Abs. Lymph 1.1 k/mm3 ()?? 06/14/2023 10:40 Abs. [place] 1.3 k/mm3 ()?? 06/14/2023 10:40 Abs. Eo 0.2 k/mm3 ()?? 06/14/2023 10:40 Abs. Baso 0.1 k/mm3 ()?? 06/14/2023 10:40 Neut % 80.5 % (High)?? 06/14/2023 10:40 Lymph % 7.8 % (Low)?? 06/14/2023 10:40 [place] % 9.4 % ()?? 06/14/2023 10:40 Eos % 1.5 % ()?? 06/14/2023 10:40 Baso % 0.4 % ()?? 06/14/2023 10:40 Imm Gran 0.4 % ()?? 06/14/2023 10:40 Abs. Imm Gran 0.1 k/mm3 ()?? 06/14/2023 10:40 ?? CARDIAC High Sensitivity Troponin (HSTnT) 153 ng/L (Critical)?? 06/14/2023 16:35 ?? CHEM GENERAL Sodium 138 mmol/L ()?? 06/14/2023 10:40 Potassium 4.8 mmol/L ()?? 06/14/2023 10:40 Chloride 93 mmol/L (Low)?? 06/14/2023 10:40 Bicarbonate Level 22 mmol/L ()?? 06/14/2023 10:40 Anion Gap 23 (High)?? 06/14/2023 10:40 Glucose Level 167 mg/dL (High)?? 06/14/2023 10:40 BUN 75 mg/dL (High)?? 06/14/2023 10:40 Creatinine-Blood 11.4 mg/dL (High)?? 06/14/2023 10:40 Estimated GFR Creatinine 5 ML/MIN/1.73 M2 ()?? 06/14/2023 10:40 Calcium 9.4 mg/dL ()?? 06/14/2023 10:40 ?? HEME OTHER Hold Blue Top SPECIMEN DISCARDED AFTER 4 HOURS. ()?? 06/14/2023 10:40 ?? URINE OTHER Est Creatinine Clearance 7.27 mL/min ()?? 06/14/2023 11:31 ?? VIROLOGY COVID-19 by RT-PCR NEGATIVE ()?? 06/14/2023 12:15 ? Imaging(s) ?Chest 2 Views Frontal and Lat ?? 06/14/2023 11:36??by Glory CLARKE, Millie O ?IMPRESSION: Linear opacities in the right lung base which may represent mild subsegmental atelectasis. ?Other Image ?EKG: Ventricular Rate: 99 BPM Atrial Rate: 99 BPM P-R Interval: 210 ms QRS Duration: 86 ms Q-T Interval: 362 ms QTC Calculation(Bazett): 464 ms P [place]: 59 degrees R [place]: 18 degrees T [place]: 55 degrees Sinus rhythm with 1st degree A-V block Possible Left atrial enlargement Left ventricular hypertrophy ( Sokolow-Alvarado , [place] product ) Abnormal ECG ? EKG study * Event Display: ECG 12-Lead Authored Date: Please click on pdf link to open report * Event Display: ECG 12-Lead Authored Date: Ventricular Rate: 99 BPM Atrial Rate: 99 BPM P-R Interval: 210 ms QRS Duration: 86 ms Q-T Interval: 362 ms QTC Calculation(Bazett): 464 ms P [place]: 59 degrees R [place]: 18 degrees T [place]: 55 degrees Sinus rhythm with 1st degree A-V block Possible Left atrial enlargement Left ventricular hypertrophy ( Sokolow-Alvarado , [place] product ) Abnormal ECG When compared with ECG of 12-JUN-2023 08:56, No significant change Confirmed by IMANI ALVARADO ([id number]) on 06/14/2023 9:36:48 PM [place]: IMANI ALVARADO Cardiology * Event Display: Cardiac Rhythm Strips Authored Date: * Event Display: Cardiac Rhythm Strips Authored Date: Hospital Progress note * Mery Benavides: PERFORM, SIGN, VERIFY Event Display: Progress Note Hospital Authored Date: Patient: CHARISMA PANDA Age: 48 years Sex: Male : 1975 Associated Diagnoses: None Author: Mery Benavides [facility] Progress Note Interval History Reports right foot pain, chest pain, SOB. No acute complaints otherwise. Ran net even on HD yesterday. Review of Systems Review of Systems Respiratory: shortness of breath. Cardiovascular: chest pain. Gastrointestinal: no abdominal pain, no nausea, no vomiting. Physical Examination Vital Signs Vitals : VITALS 06/16/2023 7:22 EDT Temperature 98.7 DegF Temperature Route Oral Pulse Rate 97 bpm H Respiratory Rate 18 br/min Systolic Blood Pressure 125 mm Hg Diastolic Blood Pressure 65 mm Hg Blood pressure sites Arm, left Mean Arterial Pressure 85 mm Hg Pulse Pressure 60 mm Hg Oxygen Saturation 92 % L Mode of Delivery (Oxygen) Room air . General Appearance NAD. HEENT Moist mucous membranes. Respiratory Decreased breath sounds. Cardiac Rhythms: RRR. Abdomen/GI Abdomen: soft, non-tender. Extremities No edema. Neurologic Alert & oriented x 3 . Results Review 7 Day Results Results Laboratory : LABORATORY 06/15/2023 5:24 EDT WBC 13.8 k/mm3 H RBC 3.35 m/mm3 L Hgb 10.1 Gm/dL L Hct 31.2 % L MCV 93.1 femtoliters MCH 30.1 pg MCHC 32.4 g/dL L Platelet Count 284 k/mm3 RDW-SD 45.8 femtoliters MPV 9.1 femtoliters L Nucleated RBC (Automated) 0.0 #/100 WBC'S Abs. NRBC 0.0 k/mm3 Abs. Neut 11.4 k/mm3 H Abs. Lymph 0.8 k/mm3 Abs. [place] 1.3 k/mm3 Abs. Eo 0.1 k/mm3 Abs. Baso 0.0 k/mm3 Neut % 82.9 % H Lymph % 5.7 % L [place] % 9.7 % Eos % 0.8 % Baso % 0.3 % Imm Gran 0.6 % Abs. 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 Pt presented to [facility] on 06/14/23 for chest pain. 1. 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 D[facility] MWF at [place] [facility] via R AVF Plan: - Continue HD MWF while inpatient - Continue Prednisone 5 mg daily and Tacrolimus XR 3 mg daily - Monitor electrolytes - Renal diet (K restrict, fluid restrict) 2. HTN / Hypervolemia Plan - Continue Amlodipine 10 mg daily and Carvedilol 3.125 mg BID - Ultrafiltrate on dialysis using Critline monitoring. 3. Nephrogenic Anemia: Hgb 10.1 (06/15) TSat 45% (06/03) Plan - No need for EPO or iron supplementation at this time 4. MBD Calcium 9.2 (06/15) Phos 7.8 (06/10) PTH 1197 (06/03) Plan: - Continue Sevelamer 1600 mg TID w/ meals - Continue Calcitriol 1.25 mcg every MWF - Continue Cinacalcet 60 mg daily - Renal diet (phos restrict) Thank you for the courtesy of this consult, RTANE will continue monitoring the patient along with you please do not hesitate to call us with any further questions Mery Max PA-C [facility] [address] , [address] [facility] * Jacqueline CLARKE, Sharron N: PERFORM Event Display: Progress Note Hospital Authored Date: Patient: ??CHARISMA PANDA ? Age:??48 Years?Sex:??Male?:??1975?? Indication for Consult Persistent chest pain History of Present Illness/Interval History 48-year-old male with past medical history significant for??hypertension, mute and deaf, hypertension, dyslipidemia, history of kidney transplant currently on dialysis. Patient was recently discharged??2 days prior to admission for chest pain. ??His echocardiogram and nuclear stress test were normal and he was discharged home. ??During prior hospitalization had some issues with his blood pressureamlodipine was increased to 10 mg with plan of considering low-dose carvedilol if still issue with blood pressure. Returns??once again??for ongoing chest pain that is not getting any better. ??Labs in the ER with WBC of 13.8, hemoglobin 11.4,??HSTnT 149,?? his chest pain is worse with deep inspirations and feels much better if he sits up or leans forward. Thought to be related to uremic pericarditis and is being treated accordingly. States that the CP is better today rated at 2/10 constant pain, exacerbated with deep breaths and laying down. Review of Systems ?Constitutional, Eye, Skin, Head/Neck, ENMT, Respiratory, Cardio, Gastrointestinal, Breast, Gynecologic, Genitourinary, Endocrine, Muscoloskeletal, Immunologic, Hematologic, Lymphatic, Neurologic,Psych reviewed and negative except as noted in HPI. ? Physical Exam Vitals & Measurements T:??98.0?F?? HR:??96??(Peripheral)?? RR:??16?? BP:??132/64?? SpO2:??92%?? HT:??168??cm?? WT:??68??kg?? BMI:??24.09?? Weight lb/oz: 149 lb 15 oz ?GENERAL: The patient is lying in bed comfortably, in no acute distress. ?HEENT: NC/AT. PERRL. EOMI. Anicteric sclerae. ?NECK: Supple, intact. No JVD. Trachea midline. No lymphadenopathy appreciated. ?CVS: RRR. Normal S1/S2. No murmurs, rubs or gallops. ?PULM: CTA bilaterally. No wheezes, rales or rhonchi. ?ABDOMEN: Soft, nontender, nondistended. Positive bowel sounds in all 4 quadrants. No hepatosplenomegaly. ?EXTREMITIES: No edema. Peripheral pulses intact bilaterally. ?NEURO: AOx3. Intact, non-focal motor and sensory exam. CN II-XII grossly intact.?SKIN: Dry, clean, intact. No rash or ulcer. No apparent nail changes. ?MSK: No joint swelling, erythema or tenderness. ?PSYCH: Good insight. No depression or suicidal ideation. ? Assessment/Plan 1.??Chest pain (Provisional) 2.??Uremic pericarditis 3.??Hypertensive urgency 4.??ESRD on hemodialysis 5.??Diabetes mellitus 6.??Subclinical hypothyroidism 7.??Depression ?? Charisma is a pleasant 48-year-old deaf and mute male with past medical history significant for hypertension, sleep anemia, history of kidney transplant dialysis who isreadmitted due to ongoingchest pleuritic chest pain. ??Recent nuclear stress test and echocardiogram are completely normal.??Symptoms likely due to uremic pericarditis which is being treated accordingly. ?? 1. Chest pain, most likely related to uremic pericarditis by history. Stable,??mostly improved symptoms.??Reports constant mild residual CP which appears to be pleuriticin nature.??c/w colchicine 0.3 times a week (non-dialysis days). ??If his symptoms not improve, canconsider Arcalyst which is a interleukin-1 xenia.? 2. HTN-??continues to have??episodes??of??elevated BP at times. c/w amlodipine 10mg,??consider increasing carvedilol to 6.25mg twice daily if BP continues to be uncontrolled.? 3. Elevated troponin, flat. likely related to ESRD??on dialysis. ?Thank you for allowing us to participate in the care of this patient. ? Sharron Phillips MD Interventional Cardiology - [facility] [id number] ?? Disclaimer: This dictation was accomplished with use of [employer] voice recognition software, prone tomedical word misidentifications and grammatical errors. The physician does strive to identify and correct these, but some could still be present. Please do not hesitate to contact physician for clarifications. Total Time Spent I personally spent a total of??25 minutes, including both [id number] and ags-wipz-yn-face time onthe date of the encounter, addressing the above diagnoses. Problem List/Past Medical History Ongoing [facility] Care Management Vernell Mckenzie [phone] -donor kidney transplant recipient Depression Diabetes mellitus ESRD on hemodialysis Hearing loss HTN (hypertension) Lower back pain ADAM (obstructive sleep apnea) Subclinical hypothyroidism Procedure/Surgical History Donor renal transplantation: 04/11/20 Hospital Medications Medications (27) Active SCHEDULED: (15) Amlodipine 10 mg Tablet (Norvasc 10 mg oral tablet) ??10 mg, By Mouth, Daily Calcitriol 0.25 mcg Capsule (calcitriol 0.25 mcg oral capsule) ??1.25 mcg, By Mouth, Every Thursday, Thursday and Thursday Carvedilol 3.125 mg Tablet (carvedilol 3.125 mg oral tablet) ??3.125 mg, By Mouth, 2 times a day Cinacalcet 30mg Tablet (cinacalcet 30 mg oral tablet) ??60 mg, By Mouth, Daily Colchicine 0.6 mg Tablet (colchicine 0.6 mg oral tablet) ??0.3 mg, By Mouth, Every Thursday, and Thursday Colchicine 0.6 mg Tablet (colchicine 0.6 mg oral tablet) ??0.3 mg, By Mouth, Every Thursday Fluoxetine 20 mg Capsule (FLUoxetine 20 mg oral capsule) ??20 mg, By Mouth, Daily Folic Acid/Vit B Comp/C Capsule (Nephrocap Capsule) ??1 capsule, By Mouth, Daily Insulin Glargine 100 units/mL Inj (Insulin Glargine Inj) ??18 units 0.18 mL, Subcutaneous Injection, Daily at bedtime Insulin Lispro 100 units/mL Inj (3mL) (Insulin LISPRO Scale) ??2-8 units, Subcutaneous Injection, 3times a day before meals Levothyroxine 25 mcg Tablet (levothyroxine 0.025 mg oral tablet) ??37.5 mcg, By Mouth, Daily NaCl 0.9% Flush 3ml (NaCL 0.9% Flush) ??3 mL, IV Push, Every 8 hours PredniSONE 5 mg Tablet (predniSONE 5 mg oral tablet) ??5 mg, By Mouth, Daily Sevelamer Carbonate 800 mg Tablet (sevelamer carbonate 800 mg oral tablet) ??1,600 mg, By Mouth, 3 times a day with meals Tacrolimus XR 1 mg Tab (tacrolimus 1 mg oral tablet, extended release) ??3 mg, By Mouth, Daily in AM CONTINUOUS: (0) PRN: (12) Dextrose Inj Syringe (Dextrose 50% Inj Syringe (25Gm)) ??12.5 Gm, IV Push Slowly, Every 20 minutes Dextrose Inj Syringe (Dextrose 50% Inj Syringe (25Gm)) ??25 Gm, IV Push Slowly, Every 15 minutes Docusate Sodium 100 mg Capsule (Docusate Sodium Capsule) ??100 mg 1 capsule, By Mouth, 2 times a day Glucagon 1 mg Inj (Glucagon Inj) ??1 mg, Intramuscular, Once Glucose 40% Gel (15 Gm) (Glucose Gel) ??15 Gm, By Mouth, Every 20 minutes Glucose 40% Gel (15 Gm) (Glucose Gel) ??30 Gm, By Mouth, Every 20 minutes HYDROmorphone 2 mg Tablet (HYDROmorphone 2 mg oral tablet) ??2 mg, By Mouth, Every 4 hours Melatonin 3 mg Tablet (Melatonin Tablet) ??3 mg, By Mouth, Daily at bedtime NaCl 0.9% Flush 3ml (NaCL 0.9% Flush) ??3 mL, IV Push, Every 8 hours Polyethylene Glycol 17 Gm Powder (MiraLax Powder) ??17 Gm 1 pack/packet, By Mouth, Daily Senna Tablet ??8.6 mg 1 tablet, By Mouth, 2 times a day Simethicone 80 mg Chewable Tablet (Simethicone Tablet) ??80 mg, Chew, 3 times a day Follow-Up Appointments Added Follow Up ?Time Frame ?Comments Devin RAMIREZ, Matteo?2 to 5 weeks Lab Results Cardiology Labs WBC:??13.8 k/mm3??High (06/15/23) RBC:??3.35 m/mm3??Low (06/15/23) Hgb:??10.1 Gm/dL??Low (06/15/23) Hct:??31.2 %??Low (06/15/23) MCV: 93.1 femtoliters (06/15/23) MCH: 30.1 pg (06/15/23) MCHC:??32.4 g/dL??Low (06/15/23) Platelet Count: 284 k/mm3 (06/15/23) RDW-SD: 45.8 femtoliters (06/15/23) Nucleated RBC (Automated): 0 #/100 WBC'S (06/15/23) Abs. Neut:??11.4 k/mm3??High (06/15/23) Abs. Lymph: 0.8 k/mm3 (06/15/23) Abs. [place]: 1.3 k/mm3 (06/15/23) Abs. Eo: 0.1 k/mm3 (06/15/23) Abs. Baso: 0 k/mm3 (06/15/23) Neut %:??82.9 %??High (06/15/23) [place] %: 9.7 % (06/15/23) Eos %: 0.8 % (06/15/23) Baso %: 0.3 % (06/15/23) Imm Gran: 0.6 % (06/15/23) Abs. Imm Gran: 0.1 k/mm3 (06/15/23) INR: 1.1 (05/14/23) Protime (PT):??11.6 seconds??High (05/14/23) APTT: 27.4 seconds (05/14/23) Sodium: 137 mmol/L (06/15/23) Potassium: 5.1 mmol/L (06/15/23) Chloride:??92 mmol/L??Low (06/15/23) Bicarbonate Level:??21 mmol/L??Low (06/15/23) Glucose Level: 97 mg/dL (06/15/23) Hemoglobin A1C (Monitoring):??6 %??High (05/14/23) BUN:??91 mg/dL??High (06/15/23) Creatinine-Blood:??13.7 mg/dL??Critical (06/15/23) Calcium: 9.2 mg/dL (06/15/23) Protein, Total:??5.4 Gm/dL??Low (07/18/22) Albumin:??4.9 Gm/dL??High (05/14/23) Alkaline Phosphatase: 124 units/L (07/22/22) AST (SGOT): 9 units/L (07/22/22) ALT (SGPT): 9 units/L (05/14/23) Bilirubin, Total: 0.5 mg/dL (07/22/22) CK, Total: 18 units/L (07/26/22) Troponin T Quant: 0.09 ng/mL (07/26/22) Nt-Probnp:??21340 pg/mL??High (06/09/23) Cholesterol: 171 mg/dL (12/05/22) HDL Cholesterol: 84 mg/dL (12/05/22) Direct Low Density Lipoprotein: 87 mg/dL (12/05/22) TSH:??5.73 uIU/mL??High (06/15/23) Free T4: 1.22 ng/dL (06/15/23) Diagnostic Impression ECG ECG 12-Lead ?? 10:28:49 Please click on pdf link to open report ?? Signed By: Imani Alvarado MD ?? ECG 12-Lead ?? 10:28:49 Ventricular Rate: 99 BPM Atrial Rate: 99 BPM P-R Interval: 210 ms QRS Duration: 86 ms Q-T Interval: 362 ms QTC Calculation(Bazett): 464 ms P [place]: 59 degrees R [place]: 18 degrees T [place]: 55 degrees Sinus rhythm with 1st degree A-V block Possible Left atrial enlargement Left ventricular hypertrophy ( Sokolow-Alvarado , Archie product ) Abnormal ECG When compared with ECG of 12-JUN-2023 08:56, No significant change Confirmed by IMANI ALVARADO ([id number]) on 06/14/2023 9:36:48 PM ?? [place]: IMANI ALVARADO ?? Signed By: Imani Alvarado MD A Stress Test NM Myocard Perf SPECT Multi ?? 13:00:00 Summary 1. Myocardial perfusion imaging is normal without any fixed or reversible perfusion defect after Regadenoson infusion. ?? 2. LV function is normal at rest and after IV administration of Regadenoson with normal wall motion and thickening. ?? 3. EKG portion of the stress test is reported separately. ?? Signatures _ _ ?? Signed By: Melani CLARKE, Charisma Jara Echo Echocardiogram - Complete ?? 11:04:11 Summary [...] ?? Signature ?? Signed By: Jayden CLARKE, Nisreen Dumont Ann: VERIFY, PERFORM, SIGN Event Display: Progress Note Hospital Authored Date: [id number] Patient: CHARISMA PANDA Age: 48 years Sex: Male : 1975 Associated Diagnoses: None Author: Nisreen Tapia Findings Narrative/Incidental Assume care at 1830H. Pt is A/O. Right AVF, dressing is clean and dry. Coplains of left shulder, back and right lateral rib pain. PRN Dilaudid given as ordered. Denies CP / SOB. VSS. Ambulating independently. Needs attended. Safety measures advised. Call chávez placed within reach. . Discharge Information Case Management Discharge Plan : Case Management Discharge Plan Data 06/12/2023 18:20 EDT Discharge Level of Care at Discharge Home/Half-Way/Foster Care Consult note * Jaison Sherwood MD: SIGN, MODIFY Jaison Sherwood MD: MODIFY Mery Benavides: PERFORM, SIGN Mery Benavides: SIGN, VERIFY Mery Benavides: VERIFY Event Display: Consultation Note Authored Date: Patient: CHARISMA PANDA Age: 48 years Sex: Male : 1975 Associated Diagnoses: None Author: Mery Benavides [facility] Consultation Note Reason for Consult: ESRD History of Present Illness Charisma Panda is a 48-year-old male with history of end-stage renal disease on hemodialysis via right AV fistula, DDRT renal transplant recipient on immunosuppressants lost in 05/2022 due to rejection, hypertension, type 1 diabetes mellitus, deafness, and ADAM with recent admission from 06/11/2023 to 06/12/2023 for chest pain with normal nuclear stress testing and echocardiogram at that time. Pt presented to [facility] on 06/14/23 for chest pain. He has had persistent chest pain in his anterior chest radiating to his left arm and left back. He notes that it is worse with deep inspirations and feels much better if he sits up or leans forward. He has been using tramadol without sustained relief. He has been taking his new blood pressure medication as prescribed. In the emergency room, the patient has been afebrile and hemodynamically stable. Chest x-ray without pathology. High-sensitivity troponin values elevated at 149 and 153, but unchanged from previous. He was seen by cardiology and started on colchicine for clinical picture consistent with uremic pericarditis. Pt was admitted for ACS r/o and Nephrology was consulted for ESRD. Upon visit w/ pt, pt reports he presented [facility] for chest pain, stating the pain radiated to hisneck, lower back as well as right abdominal pain. Pt reports he feels the chest pain is worse with exertion. Pt reports his last dialysis session was Thursday, and he had not missed any sessions recently. At this time, pt reports chest pain, right abdominal pain. Denies nausea, vomiting, SOB, lower extremity edema. Review of Systems As mentioned in HPI, otherwise negative Health Status Allergies: Allergies (Active and Proposed Allergies Only) Toradol (Severity: Unknown severity, Onset: Unknown) Reactions: decreased kidney function Comments: Pt states he is not allergic to this medication Vicodin (Severity: Unknown severity, Onset: Unknown) Reactions: itching Valium (Severity: Unknown severity, Onset: Unknown) Reactions: difficulty breathing Robaxin (Severity: Unknown severity, Onset: Unknown) Reactions: itching ibuprofen (Severity: Unknown severity, Onset: Unknown) Reactions: decreased kidney function aspirin (Severity: Unknown severity, Onset: Unknown) Reactions: decresed kidney function Past Medical History: -donor kidney transplant recipient [facility] Care Management [facility], Vernell Rui [phone] Depression Diabetes mellitus ESRD on hemodialysis HTN (hypertension) Hearing loss Lower back pain ADAM (obstructive sleep apnea) Subclinical hypothyroidism Medications: Amlodipine (Norvasc 10 mg oral tablet) 10 Milligram 1 tablet By Mouth Daily for 30 Days Calcitriol (calcitriol 0.25 mcg oral capsule) 1.25 Microgram By Mouth Every Thursday, Thursday and Thursday for 30 Days Carvedilol (carvedilol 3.125 mg oral tablet) 3.125 Milligram By Mouth 2 times a day for 30 Days Cinacalcet (cinacalcet 30 mg oral tablet) 60 Milligram By Mouth Daily for 30 Days Colchicine (colchicine 0.6 mg oral tablet) See Instructions 0.5 tablet every thursday,, thursday, thursday dulaglutide (Trulicity Pen 1.5 mg/0.5 mL subcutaneous solution) 0.5 Milliliter 1.5 Milligram Subcutaneous Injection Every week rotate injection sites Durable Medical Equipment (Freestyle Lite Monitor) See Instructions for 30 Days use to check BG BIDfor type 2 DM Durable Medical Equipment (Freestyle Lite Lancets) See Instructions use to check BG BID for dx: Type 2 Diabetes Mellitus Durable Medical Equipment (Freestyle Lite Test Strips) See Instructions use to check BG BID for dx:E11.65 Durable Medical Equipment (FreeStyle Yris 2 Monitor) See Instructions use to check blood sugar every 8 hours Durable Medical Equipment (FreeStyle Yris 2 Sensors) See Instructions use to check blood sugar at least every 8 hours, replace sensors every 14 days Durable Medical Equipment (Alcohol Pads) See Instructions use to clean skin prior to insulin injections and before applying new yris sensor (max 5 times per day) Durable Medical Equipment (Pen [place], 31 G x 5 mm BD Ultra Fine III) See Instructions for 90 Daysuse as directed for Diabetes [id number] Fluoxetine (FLUoxetine 20 mg oral capsule) 1 capsule By Mouth Daily Glucagon (Baqsimi One Pack 3 mg nasal powder) See Instructions 3 mg OnceIn one nostril; dose does not need to be inhaledmay repeat in 15 minutesalternate nostrils Glucose (glucose 4 gm oral tablet, chewable) 4 tab(s) 16 gram Chew Once as needed as needed for lowblood sugar Insulin Glargine (Lantus Solostar Pen 100 units/mL subcutaneous solution) See Instructions Please take 20 units at uoibfepV26.8 Levothyroxine (levothyroxine 0.025 mg oral tablet) 1.5 tab(s) By Mouth Daily Miscellaneous Rx (Blood Pressure Monitor) See Instructions to be used to check BP daily, Dx: HTN, ESRD on HD, new onset hypotenstion with falls; just stopped nifedipine Miscellaneous Rx (B-D PEN NDL MINI 60EC7PR(12/11)PRPL) USE DIRECTED FOR TYPE 1 DIABETES Miscellaneous Rx (FREESTYLE YRIS 2 READER DEVICE) See Instructions USE TO CHECK BLOOD SUGAR EVERY 8 HOURS Multivitamin (multivitamin Vitamin B Complex with C and Folic Acid oral capsule) TAKE 1 CAPSULE BY MOUTH ONCE DAILY PredniSONE (predniSONE 5 mg oral tablet) 1 tab(s) 5 Milligram By Mouth Daily with food or milk sucroferric oxyhydroxide (Velphoro 2500 mg (500 mg elemental iron) oral tablet, chewable) 1 tab(s) 500 Milligram Chew 3 times a day with meals Tacrolimus (tacrolimus 1 mg oral tablet, extended release) 3 Milligram By Mouth Daily in AM for 30 Days Please take tacrolimus 8 mg PO daily in AM and f/u with expander for level monitoring and dose adjustment. Tramadol (traMADol 50 mg oral tablet) 1 tab(s) 50 Milligram By Mouth Every 12 hours as needed as needed for pain for 5 Days Social History: Tobacco Details: Never smoker, Tobacco user in household: No. Details: Never smoker Details: Never smoker, Tobacco user in household: No. Details: Never smoker Family History: No family history recorded. Physical Examination Temperature 99.3 (10:27) Systolic Blood Pressure 174 (10:27) Diastolic Blood Pressure 75 (10:27) Pulse 112 (10:27) SpO2 94 (10:27) Respiratory Rate 20 (10:27) Physical Exam: General: Patient appears in no acute distress. HEENT: Moist mucous membranes noted. Cardiovascular: Regular rate and rhythm. Respiratory: Lungs clear to auscultation bilaterally. Abdominal: Soft, nontender. Extremities: No lower extremity edema. All extremities warm to touch. RUE AVF thrill noted. Neuro: Alert and oriented to person, place, time. Results Review General results Today's results 06/15/2023 5:24 EDT WBC 13.8 k/mm3 H RBC 3.35 m/mm3 L Hgb 10.1 Gm/dL L Hct 31.2 % L MCV 93.1 femtoliters MCH 30.1 pg MCHC 32.4 g/dL L Platelet Count 284 k/mm3 RDW-SD 45.8 femtoliters MPV 9.1 femtoliters L Nucleated RBC (Automated) 0.0 #/100 WBC'S Abs. NRBC 0.0 k/mm3 Abs. Neut 11.4 k/mm3 H Abs. Lymph 0.8 k/mm3 Abs. [place] 1.3 k/mm3 Abs. Eo 0.1 k/mm3 Abs. Baso 0.0 k/mm3 Neut % 82.9 % H Lymph % 5.7 % L [place] % 9.7 % Eos % 0.8 % Baso % 0.3 % Imm Gran 0.6 % Abs. 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 Pt presented to [facility] on 06/14/23 for chest pain. 1. 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 Dialyzes MWF at [facility] via R AVF Plan: - Continue HD MWF while inpatient - Continue Prednisone 5 mg daily and Tacrolimus XR 3 mg daily - Monitor electrolytes - Renal diet (K restrict, fluid restrict) 2. HTN / Hypervolemia Plan - Continue Amlodipine 10 mg daily and Carvedilol 3.125 mg BID - Ultrafiltrate on dialysis using Critline monitoring. 3. Nephrogenic Anemia: Hgb 10.1 (06/15) TSat 45% (06/03) Plan - No need for EPO or iron supplementation at this time 4. MBD Calcium 9.2 (06/15) Phos 7.8 (06/10) PTH 1197 (06/03) Plan: - Continue Sevelamer 1600 mg TID w/ meals - Continue Calcitriol 1.25 mcg every MWF - Continue Cinacalcet 60 mg daily - Renal diet (phos restrict) Thank you for the courtesy of this consult, RTANE will continue monitoring the patient along with you please do not hesitate to call us with any further questions Mery Max PA-C [facility] [address] , [address] Available by [facility] * Kaela CLARKE, Jaison: PERFORM Event Display: Consultation Note Authored Date: I have evaluated the patient and discussed the plan with Mery Max PA-C. * Mainor RODAS, Flakito Londono: PERFORM Event Display: Consultation Note Authored Date: Patient: ??CHARISMA PANDA ? Age:??48 Years?Sex:??Male?:??1975?? Indication for Consult CP x 2 days with cough and spitting up yellow sputumn was seen here 2 days ago also has lower back pain History of Present Illness/Interval History Charisma is a pleasant 48-year-old male with past medical history significant for??hypertension,mute and deaf, hypertension, dyslipidemia, history of kidney transplant currently on dialysis. ??Patient was just recently discharged on Thursday after being admitted for work-up for chest pain. ??His echocardiogram and nuclear stress test were normal and he was discharged home. ??During prior hospitalization had some issues with his blood pressure amlodipine was increased to 10 mg with plan of considering low-dose carvedilol if still issue with blood pressure. ?? Returns today for ongoing chest pain that is not getting any better. ??Labs in the ER with WBC of 13.8, hemoglobin 11.4,??HSTnT 149,?? his chest pain is worse with deep inspirations and feels muchbetter if he sits up or leans forward Review of Systems 12 point review of symptoms as noted in the??HPI and reviewed in detail with the patient; pertinentpositives noted otherwise??negative. Physical Exam Vitals & Measurements T:??97.8?F?? HR:??93??(Peripheral)?? RR:??11?? BP:??169/86?? SpO2:??94%?? HT:??168??cm?? WT:??68??kg?? BMI:??24.09?? Weight lb/oz: 149 lb 15 oz General: laying in bed Mouth: moist mucous membranes.? Cardiac:??Regular rate and rhythm,??no significant??murmur.?No JVD, no hepatojugular reflux.? Chest: clear, bilateral air entry. Abdomen: soft, nontender, bowel sounds present.? Peripheral exam:?No pedal edema, warm peripheries, no clubbing, no cyanosis.?pulses are symmetrical, 2+.? Assessment/Plan Chest pain (Provisional) In summary Charisma is a pleasant 48-year-old deaf and mute male with past medical history significant for hypertension, sleep anemia, history of kidney transplant dialysis who is here today back in the hospital due to ongoing chest pain did not resolve after his most recent hospitalization where he was discharged 2 days ago. ??Recent nuclear stress test and echocardiogram are completely normal. ?? 1.chest pain This chest pain??sounds like it??is due to uremic pericarditis. ??His EKGs and function do not showthis there is no evidence of MO depressions and diffuse ST elevations, but symptoms are very consistent with this. ??We recommend colchicine 0.3 times a week on days when he is not on dialysis. ??If his symptoms not improve we can consider Arcalyst which is a interleukin-1 xenia.? Plan:?? Start colchicine 0.3 times a week Consult nephrology if patient have NSAIDs for 1 week given his dialysis Try to avoid steroids as the risk of recurrent pericarditis is high with use of steroids. Allergies Robaxin??(itching) Toradol??(decreased kidney function) Valium??(difficulty breathing) Vicodin??(itching) aspirin??(decresed kidney function) ibuprofen??(decreased kidney function) Home Medications Amlodipine: 10 mg = 1 tablet, By Mouth, Daily Calcitriol: 1.25 mcg, By Mouth, Every Thursday, Thursday and Thursday Cinacalcet: 60 mg, By Mouth, Daily dulaglutide: 1.5 mg = 0.5 mL, Subcutaneous Injection, Every week, rotate injection sites Durable Medical Equipment: See Instructions, use to check BG BID for type 2 DM Durable Medical Equipment: See Instructions, use to check BG BID for dx: Type 2 Diabetes Mellitus Durable Medical Equipment: See Instructions, use to check BG BID for dx: E11.65 Durable Medical Equipment: See Instructions, use to check blood sugar every 8 hours Durable Medical Equipment: See Instructions, use to check blood sugar at least every 8 hours, replace sensors every 14 days Durable Medical Equipment: See Instructions, use to clean skin prior to insulin injections and before applying new yris sensor (max 5 times per day) Durable Medical Equipment: See Instructions, use as directed for Diabetes FggcabdrX11.8 Fluoxetine: 1 capsule, By Mouth, Daily Glucagon: See Instructions, 3 mg OnceIn one nostril; dose does not need to be inhaledmay repeat in 15 minutesalternate nostrils Glucose: 16 Gm = 4 tablet, Chew, Once, PRN (as needed for low blood sugar) Insulin Glargine: See Instructions, Please take 20 units at diriftoC52.8 Levothyroxine: 1.5 tablet, By Mouth, Daily Miscellaneous Rx (Blood Pressure Monitor): See Instructions, to be used to check BP daily, Dx: HTN,ESRD on HD, new onset hypotenstion with falls; just stopped nifedipine Miscellaneous Rx: USE DIRECTED FOR TYPE 1 DIABETES Miscellaneous Rx (FREESTYLE YRIS 2 READER DEVICE): See Instructions, USE TO CHECK BLOOD SUGAR EVERY 8 HOURS Multivitamin: TAKE 1 CAPSULE BY MOUTH ONCE DAILY PredniSONE: 5 mg = 1 tablet, By Mouth, Daily, with food or milk Tacrolimus: 3 mg, By Mouth, Daily in AM, Please take tacrolimus 8 mg PO daily in AM and f/u with expander for level monitoring and dose adjustment. Tramadol: 50 mg = 1 tablet, By Mouth, Every 12 hours, PRN (as needed for pain) Hospital Medications Medications (9) Active SCHEDULED: (1) NaCl 0.9% Flush 3ml (NaCL 0.9% Flush) ??3 mL, IV Push, Every 8 hours CONTINUOUS: (0) PRN: (8) Dextromethorphan-Guaifenesin 20 mg-200 mg/10 mL Liqu UD (Robitussin DM Liquid) ??10 mL, By Mouth, Every 4 hours Docusate Sodium 100 mg Capsule (Docusate Sodium Capsule) ??100 mg 1 capsule, By Mouth, 2 times a day HYDROmorphone 1 mg/mL Inj Syringe (Dilaudid Inj) ??1 mg 1 mL, IV Push Slowly, Every 15 minutes Melatonin 3 mg Tablet (Melatonin Tablet) ??3 mg, By Mouth, Daily at bedtime NaCl 0.9% Flush 3ml (NaCL 0.9% Flush) ??3 mL, IV Push, Every 8 hours Polyethylene Glycol 17 Gm Powder (MiraLax Powder) ??17 Gm 1 pack/packet, By Mouth, Daily Senna Tablet ??8.6 mg 1 tablet, By Mouth, 2 times a day Simethicone 80 mg Chewable Tablet (Simethicone Tablet) ??80 mg, Chew, 3 times a day Lab Results Cardiology Labs WBC:??13.8 k/mm3??High (06/14/23) RBC:??3.76 m/mm3??Low (06/14/23) Hgb:??11.4 Gm/dL??Low (06/14/23) Hct:??35.2 %??Low (06/14/23) MCV: 93.6 femtoliters (06/14/23) MCH: 30.3 pg (06/14/23) MCHC:??32.4 g/dL??Low (06/14/23) Platelet Count: 300 k/mm3 (06/14/23) RDW-SD: 45.4 femtoliters (06/14/23) Nucleated RBC (Automated): 0 #/100 WBC'S (06/14/23) Abs. Neut:??11.1 k/mm3??High (06/14/23) Abs. Lymph: 1.1 k/mm3 (06/14/23) Abs. [place]: 1.3 k/mm3 (06/14/23) Abs. Eo: 0.2 k/mm3 (06/14/23) Abs. Baso: 0.1 k/mm3 (06/14/23) Neut %:??80.5 %??High (06/14/23) [place] %: 9.4 % (06/14/23) Eos %: 1.5 % (06/14/23) Baso %: 0.4 % (06/14/23) Imm Gran: 0.4 % (06/14/23) Abs. Imm Gran: 0.1 k/mm3 (06/14/23) INR: 1.1 (05/14/23) Protime (PT):??11.6 seconds??High (05/14/23) APTT: 27.4 seconds (05/14/23) Sodium: 138 mmol/L (06/14/23) Potassium: 4.8 mmol/L (06/14/23) Chloride:??93 mmol/L??Low (06/14/23) Bicarbonate Level: 22 mmol/L (06/14/23) Glucose Level:??167 mg/dL??High (06/14/23) Hemoglobin A1C (Monitoring):??6 %??High (05/14/23) BUN:??75 mg/dL??High (06/14/23) Creatinine-Blood:??11.4 mg/dL??High (06/14/23) Calcium: 9.4 mg/dL (06/14/23) Protein, Total:??5.4 Gm/dL??Low (07/18/22) Albumin:??4.9 Gm/dL??High (05/14/23) Alkaline Phosphatase: 124 units/L (07/22/22) AST (SGOT): 9 units/L (07/22/22) ALT (SGPT): 9 units/L (05/14/23) Bilirubin, Total: 0.5 mg/dL (07/22/22) CK, Total: 18 units/L (07/26/22) Troponin T Quant: 0.09 ng/mL (07/26/22) Nt-Probnp:??16094 pg/mL??High (06/09/23) Cholesterol: 171 mg/dL (12/05/22) HDL Cholesterol: 84 mg/dL (12/05/22) Direct Low Density Lipoprotein: 87 mg/dL (12/05/22) TSH: 3.49 uIU/mL (12/05/22) Free T4: 0.88 ng/dL (12/05/22) Diagnostic Impression ECG ECG 12-Lead * Preliminary * ?? 10:28:49 Ventricular Rate: 99 BPM Atrial Rate: 99 BPM P-R Interval: 210 ms QRS Duration: 86 ms Q-T Interval: 362 ms QTC Calculation(Bazett): 464 ms P [place]: 59 degrees R [place]: 18 degrees T [place]: 55 degrees Sinus rhythm with 1st degree A-V block Possible Left atrial enlargement Left ventricular hypertrophy ( Sokolow-Alvarado , [place] product ) Abnormal ECG When compared with ECG of 12-JUN-2023 08:56, MANUAL COMPARISON REQUIRED, DATA IS UNCONFIRMED ?? [place]: , ?? ECG 12-Lead * Preliminary * ?? 10:28:49 Please click on pdf link to open report Stress Test NM Myocard Perf SPECT Multi ?? 13:00:00 Summary 1. Myocardial perfusion imaging is normal without any fixed or reversible perfusion defect after Regadenoson infusion. ?? 2. LV function is normal at rest and after IV administration of Regadenoson with normal wall motion and thickening. ?? 3. EKG portion of the stress test is reported separately. ?? Signatures _ _ ?? Signed By: Charisma Polo MD Echo Echocardiogram - Complete ?? 11:04:11 Summary [...] ?? Signature ?? Signed By: Jayden CLARKE, Len Baird Problem List/Past Medical History Ongoing [facility] Care Management Vernell Mckenzie [phone] -donor kidney transplant recipient Depression Diabetes mellitus ESRD on hemodialysis Hearing loss HTN (hypertension) Hyperkalemia Lower back pain ADAM (obstructive sleep apnea) Subclinical hypothyroidism Procedure/Surgical History Donor renal transplantation: 04/11/20 Social History Tobacco Never smoker, Tobacco user in household: No. Family History No family history recorded. * Connie CLARKE, Olegario: PERFORM Event Display: Consultation Note Authored Date: [id number] I have??discussed and examined the patient with the PA/MANAGER UTILITY, spending substantive time reviewing??HPI/ROS??with patient and performed physical exam. I??agree with above noted physical exam, assessment and plan as outlined with addendum/exceptions??as noted below.??Reviewed recommendations and plan with Patient and involved providers. Note * Kathryn Aaron RN: PERFORM Event Display: Discharge/Transfer Note Hospital Authored Date: [id number] Nursing Discharge Note Entered On: 06/16/2023 15:39 EDT Performed On: 06/16/2023 15:39 EDT by Kathryn Aaron RN Nursing Discharge Note 2 Discharge Time : 06/16/2023 15:39 EDT Discharge Level of Care at Discharge : Home/Half-Way/Foster Care Patient Left Unit Via : Wheelchair Patient Accompanied Off Unit with : Responsible adult DC Instructions Provided & Signed by Pt : Yes Patient Understands D/C Instructions : Yes Patient Instructions Discharge Signed : Yes Did Pt have Specialty Bed or Wound Vac : No Kathryn Aaron RN - 06/16/2023 15:39 EDT * He CLARKE, Clay Owens: PERFORM Event Display: Discharge/Transfer Note Hospital Authored Date: [id number] Patient: ??CHARISMA PANDA ? Age:??48 Years?Sex:??Male?:??1975?? Patient Information Discharge Location: [facility] Primary Care Physician: Matteo Beltran DO Admit Date/Time: 06/14/23 10:20 Discharge Disposition Discharge Disposition: ?? Discharge Diagnosis Chest pain (R07.9) Uremic pericarditis (N18.9) Hypertensive urgency (I16.0) ESRD on hemodialysis (N18.6) Diabetes mellitus (E11.9) Subclinical hypothyroidism (E03.9) Depression (F32.A) ?? _ Discharge Medications Amlodipine (Norvasc 10 mg oral tablet)?10?Milligram?1?tablet?By Mouth?Daily?for 30?Days Calcitriol (calcitriol 0.25 mcg oral capsule)?1.25?Microgram?By Mouth?Every Thursday, Thursday and Thursday?for 30?Days Carvedilol (carvedilol 3.125 mg oral tablet)?3.125?Milligram?By Mouth?2 times a day?for 30?Days Cinacalcet (cinacalcet 30 mg oral tablet)?60?Milligram?By Mouth?Daily?for 30?Days Colchicine (colchicine 0.6 mg oral tablet)?See Instructions?0.5 tablet every thursday,, thursday, thursday dulaglutide (Trulicity Pen 1.5 mg/0.5 mL subcutaneous solution)?0.5?Milliliter?1.5?Milligram?Subcutaneous Injection?Every week?rotate injection sites Durable Medical Equipment (NumberFoure Monitor)?See Instructions?for 30?Days?use to check BG BID [...] times per day) Durable Medical Equipment (Pen [place], 31 G x 5 mm BD Ultra Fine III)?See Instructions?for 90?Days?use as directed for Diabetes BfqnudgjG38.8 Fluoxetine (FLUoxetine 20 mg oral capsule)?1?capsule?By Mouth?Daily Glucagon (Baqsimi One Pack 3 mg nasal powder)?See Instructions?3 mg OnceIn one nostril; dose does not need to be inhaledmay repeat in 15 minutesalternate nostrils Glucose (glucose 4 gm oral tablet, chewable)?4?tab(s)?16?gram?Chew?Once?as needed?as needed for low blood sugar Insulin Glargine (Lantus Solostar Pen 100 units/mL subcutaneous solution)?See Instructions?Please take 20 units at ciihydyT03.8 Levothyroxine (levothyroxine 0.025 mg oral tablet)?1.5?tab(s)?By Mouth?Daily Miscellaneous Rx (Blood Pressure Monitor)?See Instructions?to be used to check BP daily, Dx: HTN, ESRD on HD, new onset hypotenstion with falls; just stopped nifedipine Miscellaneous Rx (B-D PEN NDL MINI [id number](12/11)PRPL)?USE DIRECTED FOR TYPE 1 DIABETES Miscellaneous Rx (uShip YRIS 2 READER DEVICE)?See Instructions?USE TO CHECK BLOOD SUGAR EVERY 8 HOURS Multivitamin (multivitamin Vitamin B Complex with C and Folic Acid oral capsule)?TAKE 1 CAPSULE BY MOUTH ONCE DAILY PredniSONE (predniSONE 5 mg oral tablet)?1?tab(s)?5?Milligram?By Mouth?Daily?with food or milk sucroferric oxyhydroxide (Velphoro 2500 mg (500 mg elemental iron) oral tablet, chewable)?1?tab(s)?500?Milligram?Chew?3 times a day with meals Tacrolimus (tacrolimus 1 mg oral tablet, extended release)?3?Milligram?By Mouth?Daily in AM?for 30?Days?Please take tacrolimus 8 mg PO daily in AM and f/u with expander for level monitoring and dose adjustment. Tramadol (traMADol 50 mg oral tablet)?1?tab(s)?50?Milligram?By Mouth?Every 12 hours?as needed?as needed for pain?for 5?Days ? Medications Started Colchicine Allergies Allergies ?(Active and Proposed Allergies Only) [...] Onset: Unknown) ?Reactions: decresed kidney function ? Future Appointments Thursday 1:30 PM EDT ?? With: Clifford RAMIREZ Bethanie Where: [facility] [address] [place] [address]- Status: Pending Thursday 10:00 AM EDT ?? With: Kenneth CLARKE, Inocencio Caicedo Where: [facility] [address] [place] [phone] [facility] [place] [address]- [phone] Status: Pending 2022 9:00 AM EST ?? 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 He has had persistent chest pain in his anterior chest radiating to his left arm and left back. He was seen by cardiology and started on colchicine for clinical picture consistent with uremic pericarditis. ? Charisma is a pleasant 48-year-old deaf and mute male with past medical history significant for hypertension, sleep anemia, history of kidney transplant dialysis who isreadmitted due to ongoing chest pleuritic chest pain. Recent nuclear stress test and echocardiogram are completely normal. Symptoms likely due to uremic pericarditis which is being treated accordingly. ?? Chest pain, most likely related to uremic pericarditis by history. Recent nuclear stress test and echocardiogram are completely normal Started on colchicine?? CP improved today. ?? Cardiology on board No further cardiac w/up needed now ?? He is being discharged home in a stable and improved condition ?? Plan: Will continue??colchicine 0.3 times a week (non-dialysis days). F/up with Cardiology If his symptoms not improve, can consider Arcalyst which is a interleukin-1 xenia ?? Low grade fever , Leucocytosis ?? Continue to monitor ?could be from pericarditis ? Hypertensive urgency (I16.0): ?BP running high intermittently BP stable now Plan: Will continue??Carvedilol,??Amlodipine and Lisinopril ? ESRD on hemodialysis (N18.6): ??Pt on HD MWF ? Diabetes mellitus (E11.9):? Will continue home meds including Lantus ? Subclinical hypothyroidism (E03.9): Continue levothyroxine as prescribed. ??Check TSH and free T4 as outlined. ? Depression (F32.A): Mood appears stable. ??Continue fluoxetine as prescribed. ? Code Status: FULL. home; 1 to 2 days hospitalization. ? Objective Assessment and Plan Discharge Planning:? Vital Signs?? Temperature: 98.7 DegF (06/16/23 07:22:00) Temperature Route: Oral (06/16/23 07:22:00) Pulse Rate:??97 bpm??High (06/16/23 08:26:00) Respiratory Rate: 18 br/min (06/16/23 08:33:00) Systolic Blood Pressure: 125 mm Hg (06/16/23 08:27:00) Diastolic Blood Pressure: 65 mm Hg (06/16/23 08:27:00) Blood pressure sites: Arm, left (06/16/23 07:22:00) Mean Arterial Pressure: 85 mm Hg (06/16/23 07:22:00) Pulse Pressure: 60 mm Hg (06/16/23 07:22:00) Oxygen Saturation:??92 %??Low (06/16/23 07:22:00) Mode of Delivery (Oxygen): Room air (06/16/23 07:22:00) Early Warning Score: 2 (06/16/23 08:33:45) ? . Physical Exam Awake, alert, oriented Lungs: Clear to auscultation bilateral, no wheezing no rales Heart: Regular rate and rhythm, no murmur, no rub or gallop Abdomen: Soft, nontender, nondistended; Bowel sounds present Extremity: No edema cyanosis clubbing Neurological: No focal deficit Psychiatric: Normal mood and affect Pending Results No Pending Results Follow-Up Appointments Added Follow Up ?Time Frame ?Comments Devin DO, Matteo?2 to 5 weeks Home Health Face to Face ^HomeHealthFTF Results Discharge Labs BLOOD COUNT & DIFF WBC 13.8 k/mm3 (High)?? 06/15/2023 05:24 RBC 3.35 m/mm3 (Low)?? 06/15/2023 05:24 Hgb 10.1 Gm/dL (Low)?? 06/15/2023 05:24 Hct 31.2 % (Low)?? 06/15/2023 05:24 MCV 93.1 femtoliters ()?? 06/15/2023 05:24 MCH 30.1 pg ()?? 06/15/2023 05:24 MCHC 32.4 g/dL (Low)?? 06/15/2023 05:24 Platelet Count 284 k/mm3 ()?? 06/15/2023 05:24 RDW-SD 45.8 femtoliters ()?? 06/15/2023 05:24 MPV 9.1 femtoliters (Low)?? 06/15/2023 05:24 Nucleated RBC (Automated) 0.0 #/100 WBC'S ()?? 06/15/2023 05:24 Abs. NRBC 0.0 k/mm3 ()?? 06/15/2023 05:24 Abs. Neut 11.4 k/mm3 (High)?? 06/15/2023 05:24 Abs. Lymph 0.8 k/mm3 ()?? 06/15/2023 05:24 Abs. [place] 1.3 k/mm3 ()?? 06/15/2023 05:24 Abs. Eo 0.1 k/mm3 ()?? 06/15/2023 05:24 Abs. Baso 0.0 k/mm3 ()?? 06/15/2023 05:24 Neut % 82.9 % (High)?? 06/15/2023 05:24 Lymph % 5.7 % (Low)?? 06/15/2023 05:24 [place] % 9.7 % ()?? 06/15/2023 05:24 Eos % 0.8 % ()?? 06/15/2023 05:24 Baso % 0.3 % ()?? 06/15/2023 05:24 Imm Gran 0.6 % ()?? 06/15/2023 05:24 Abs. Imm Gran 0.1 k/mm3 ()?? 06/15/2023 05:24 ?? CARDIAC High Sensitivity Troponin (HSTnT) 149 ng/L (Critical)?? 06/14/2023 20:07 ? CHEM GENERAL Sodium 137 mmol/L ()?? 06/15/2023 05:24 Potassium 5.1 mmol/L ()?? 06/15/2023 05:24 Chloride 92 mmol/L (Low)?? 06/15/2023 05:24 Bicarbonate Level 21 mmol/L (Low)?? 06/15/2023 05:24 Anion Gap 24 (High)?? 06/15/2023 05:24 Glucose Level 97 mg/dL ()?? 06/15/2023 05:24 Glucose, POC 102 mg/dL (High)?? 06/16/2023 05:23 BUN 91 mg/dL (High)?? 06/15/2023 05:24 Creatinine-Blood 13.7 mg/dL (Critical)?? 06/15/2023 05:24 Estimated GFR Creatinine 4 ML/MIN/1.73 M2 ()?? 06/15/2023 05:24 Calcium 9.2 mg/dL ()?? 06/15/2023 05:24 ? ENDOCRINE/TUMOR MARKER TSH 5.73 uIU/mL (High)?? 06/15/2023 05:24 Free T4 1.22 ng/dL ()?? 06/15/2023 05:24 ?? HEME OTHER Hold Blue Top SPECIMEN DISCARDED AFTER 4 HOURS. ()?? 06/14/2023 10:40 ? TOXICOLOGY/TDM Tacrolimus Level <2.0 ng/mL (Low)?? 06/15/2023 05:24 ? URINE OTHER Est Creatinine Clearance 6.05 mL/min ()?? 06/15/2023 06:04 ? VIROLOGY COVID-19 by RT-PCR NEGATIVE ()?? 06/14/2023 12:15 ? Microbiology ?? COVID-19 (Novel Coronavirus), Rapid PCR?? Completed?? Source: Nasal Body Site: Nose Collected Dt/Tm: 06/14/2023 11:34 Last Updated Dt/Tm: 06/14/2023 13:42 ? 35 minutes spent on discharge * Kathryn Aaron RN: PERFORM Event Display: Patient Education/Instruction Authored Date: [id number] Inpatient Adult Discharge Instructions [place] [id number] Name: CHARISMA PANDA : 1975 Visit: 06/14/2023 10:20:00 Current Date: 06/16/2023 13:19 Account: [id number] Inpatient Adult Discharge Instructions We would like [...] and their families. Surveys are administered by [employer] ?? If further treatment with your primary care physician or another doctor is recommended, it is important for you to keep the appointment. Call your primary care physician or return to the Emergency Department immediately if your condition worsens, fails to improve, or new symptoms develop. If you need to find a doctor, you can call [facility] for a referral at [phone] or toll free at [phone] or log in to [email or web address].. ?? [facility], in keeping with [facility] guidance, no longer requires face masks for [...] a health care perlita of your choosing. [employer] is a website that allows you to securely view your medical information including your hospital discharge summary, office visit summaries, medications and follow-up visits. You can also request appointments, renew medications, and request access to your medical information using a health care perlita of your choosing, or just ask a question. You can enroll at [email or web address] or register during your next office visit. You have been discharged from [facility], Patient Care Unit: D3B. If you have any questions regarding these instructions after you leave, please call us and we will be happy to assist you. [facility] Your Care Team Attending Physician He CLARKE, Clay Owens Consulting Providers Sharron Phillips MD Discharging Providers He CLARKE, Clay Owens Reason for Admission Persistent chest pain Your Diagnosis Chest pain Uremic pericarditis ESRD on hemodialysis Diabetes mellitus Hypertensive urgency Depression Subclinical hypothyroidism Tests Performed Below is a partial list of the tests performed during your hospitalization. You may have had other tests and procedures not included in this list. Please discuss all test results with your provider. BASIC METABOLIC PANEL COMPLETE CBC WITH DIFF COVID-19 (Novel Coronavirus), Rapid PCR FREE T4 GLUCOSE POC High Sensitivity Troponin T Hold Blue Top Tube TACROLIMUS TSH XR Chest 2 Views Frontal and Lat Primary Care Provider Matteo Beltran DO Advance Directive Health Care Proxy on File Yes - Health Care Proxy Discharge Vitals Temperature: 98 DegF Height: 168 cm Pulse Rate:??96 bpm??High Weight: 68 kg Respiratory Rate: 16 br/min Body Mass Index: 24.09 kg/m2 Systolic Blood Pressure: 132 mm Hg Body surface area: 1.78 Diastolic Blood Pressure: 64 mm Hg ?? Oxygen Saturation:??92 %??Low ?? Studies Pending All tests and labs ordered during this hospital stay have been completed unless listed below. Please discuss all pending results with your provider listed above in these instructions. ?? No incomplete studies found What to do next Instructions From Your Doctor Discharge Orders Scheduled Follow-Up Appointments Thursday 1:30 PM EDT ?? With: Bethanie Horton DO Where: [facility] [address] [place] [address]- Status: Pending Thursday 10:00 AM EDT ?? With: Kenneth CLARKE, Inocencio Caicedo Where: [facility] [address] [place] [address] [phone] [facility] [address]- [phone] Status: Pending 2022 9:00 AM EST ?? With: Kassandra Ritchie MD Where: [facility] [address] [place] [address]- Status: Pending You Need to Schedule the Following Appointments Follow Up with??Matteo Beltran DO When:??Within 2 to 5 weeks Where: ?? Discharge Medications ISHANZIONCHARISMA :1975 Visit Date:06/14/2023 Medications: Please continue your medications until treatment is completed or stopped by your provider. Medications not listed below should be discontinued. Discuss any questions related to medications with your provider. What How Much When Why Instructions Next Dose New Carvedilol (carvedilol 3.125 mg oral tablet) 3.125 Milligram Oral Twice a day Duration: 30 Days Pickup at [facility] #[id number] 06/16 pm New Colchicine (colchicine 0.6 mg oral tablet) See instructions 0.5 tablet every thursday,, thursday, thursday ?? 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 resume schedule Unchanged Durable Medical Equipment (Alcohol Pads) See instructions use to clean skin prior to insulin injections and before applying new yris sensor (max 5 times perday) ?? as directed Unchanged Durable Medical Equipment (FreeStyle Yris 2 Monitor) See instructions use to check blood sugar every 8 hours ?? as directed Unchanged Durable Medical Equipment (FreeStyle Yris 2 Sensors) See instructions use to check blood sugar at least every 8 hours, replace sensors every 14 days ?? as directed Unchanged Durable Medical Equipment (Freestyle Lite Lancets) See instructions use to check BG BID for dx: Type 2 Diabetes Mellitus ?? as directed Unchanged Durable Medical Equipment (Freestyle Lite Monitor) See instructions Duration: 30 Days use to check BG BID for type 2 DM ?? as directed Unchanged Durable Medical Equipment (Freestyle Lite Test Strips) See instructions use to check BG BID for dx: E11.65 ?? as directed Unchanged Durable Medical Equipment (Pen [place], 31 G x 5 mm BD Ultra Fine III) See instructions Diabetes mellitus with complication Duration: 90 Days use as directed for Diabetes Mellitus E11.8 ?? as directed Unchanged Fluoxetine (FLUoxetine 20 mg oral capsule) 1 capsule Oral Daily 06/17 Unchanged Glucagon (Baqsimi One Pack 3 mg nasal powder) See instructions Diabetes mellitus 3 mg Once In one nostril; dose does not need to be inhaled may repeat in 15 minutes alternate nostrils ?? as directed Unchanged Glucose (glucose 4 gm oral tablet, chewable) 4 tab(s) Chew Once as needed for as needed for low blood sugar Diabetes mellitus as needed Unchanged Insulin Glargine (Lantus Solostar Pen 100 units/ mL subcutaneous solution) See instructions Diabetes mellitus with complication Please take 20 units at bedtime E11.8 ?? as directed Unchanged Levothyroxine (levothyroxine 0.025 mg oral tablet) 1.5 tab(s) Oral Daily 9/20 am Unchanged Miscellaneous Rx (B-D PEN NDL MINI [id number]()PRPL) USE DIRECTED FOR TYPE 1 DIABETES ?? as directed Unchanged Miscellaneous Rx (Blood Pressure Monitor) See instructions to be used to check BP daily, Dx: HTN, ESRD on HD, new onset hypotenstion with falls; just stopped nifedipine ?? as directed Unchanged Miscellaneous Rx (FREESTYLE YRIS 2 READER DEVICE) See instructions USE TO CHECK BLOOD SUGAR EVERY 8 HOURS ?? as directed Unchanged Multivitamin (multivitamin Vitamin B Complex with C and Folic Acid oral capsule) TAKE 1 CAPSULE BY MOUTH ONCE DAILY ?? 06/17 am Unchanged PredniSONE (predniSONE 5 mg oral tablet) 1 tab(s) Oral Daily with food or milk ?? 06/17 am Unchanged sucroferric oxyhydroxide (Velphoro 2500 mg (500 mg elemental iron) oral tablet, chewable) 1 tab(s) Chew 3 times a day with meals 06/16 with dinner Unchanged Tacrolimus (tacrolimus 1 mg oral tablet, extended release) 3 Milligram Oral Daily in the morning Duration: 30 Days Please take tacrolimus 8 mg PO daily in AM and f/ u with expander for level monitoring and doseadjustment. ?? 06/17 am Unchanged Tramadol (traMADol 50 mg oral tablet) 1 tab(s) Oral Every 12 hours as needed for as needed for pain Duration: 5 Days as needed Pharmacy Information [facility] #[id number]: [address], [place] [id number] [phone] Test Results Below is a partial list of the most recent Laboratory test results done prior to this discharge. You may have had other tests and procedures not included in this list. Please discuss all test resultswith your provider. Est Creatinine Clearance - 6.05 mL/min (06/15/2023) BASIC METABOLIC PANEL (06/15/2023) ???Sodium - 137 mmol/L???Potassium - 5.1 mmol/L???Chloride - 92 mmol/L???Bicarbonate Level - 21 mmol/L???Anion Gap - 24???Glucose Level - 97 mg/dL???BUN - 91 mg/dL???Creatinine-Blood - 13.7 mg/dL???Estimated GFR Creatinine - 4 ML/MIN/1.73 M2???Calcium - 9.2 mg/dL COMPLETE CBC WITH DIFF (06/15/2023) ???WBC - 13.8 k/mm3???RBC - 3.35 m/mm3???Hgb - 10.1 Gm/dL???Hct - 31.2 %???MCV - 93.1 femtoliters???MCH - 30.1 pg???MCHC - 32.4 g/dL???Platelet Count - 284 k/mm3???RDW-SD - 45.8 femtoliters???MPV - 9.1 femtoliters???Nucleated RBC (Automated) - 0.0 #/100 WBC'S???Abs. NRBC - 0.0 k/mm3???Abs. Neut - 11.4 k/mm3???Abs. Lymph - 0.8 k/mm3???Abs. [place] - 1.3 k/mm3???Abs. Eo - 0.1 k/mm3???Abs. Baso - 0.0 k/mm3???Neut % - 82.9 %???Lymph % - 5.7 %???[place] % - 9.7 %???Eos % - 0.8 %???Baso % - 0.3 %???Imm Gran - 0.6 %???Abs. Imm Gran - 0.1 k/mm3 COVID-19 (Novel Coronavirus), Rapid PCR (06/14/2023) ???COVID-19 by RT-PCR - NEGATIVE FREE T4 (06/15/2023) ???Free T4 - 1.22 ng/dL GLUCOSE POC (06/16/2023) ???Glucose, POC - 96 mg/dL High Sensitivity Troponin T (06/14/2023) ???High Sensitivity Troponin (HSTnT) - 149 ng/L Hold Blue Top Tube (06/14/2023) ???Hold Blue Top - SPECIMEN DISCARDED AFTER 4 HOURS. TACROLIMUS (06/15/2023) ? ?Tacrolimus Level - <2.0 ng/mL TSH (06/15/2023) ???TSH - 5.73 uIU/mL Allergies (NKA means No Known Allergies) Robaxin??(itching) Toradol??(decreased kidney function) Valium??(difficulty breathing) Vicodin??(itching) aspirin??(decresed kidney function) ibuprofen??(decreased kidney function) Problems Active Problems??(10) [facility] Care Management Vernell Mckenzie [phone]?? -donor kidney transplant recipient?? Depression?? Diabetes mellitus?? ESRD on hemodialysis?? Hearing loss?? HTN (hypertension)?? Lower back pain?? ADAM (obstructive sleep apnea)?? Subclinical hypothyroidism?? Education Materials Below is the list of Educational Leaflet Providered with your Discharge Instructions. Valuables and Belongings I fully understand and agree that [facility] accepts no responsibility for all my [...] to send valuables and belongings home. ?? No Valuables/Belongings: No valuables/belongings present Review of Valuable and Belonging List: With patient Date for Pt to Sign Valuables/Belongings: 06/14/23 17:43:00 ?? Other Discharge Information ? Pulmonary Rehab Status?? Pulmonary Rehab Discharge Status?? Respiratory Rate: 16 br/min ? Common Emergency Awareness Tips IS [...] are strongly encouraged to quit. Please call [facility] [employer] [facility] at [phone] or [phone] ([phone]) or log in to [email or web address] for referrals to smoking cessation programs. ?? 796 Suicide & Crisis Lifeline is available 20/04 if you or someone you know needs to find a reason to keep living. By calling 877 you'll be connected to a skilled, trained counselor at a crisis center in your area. INPATIENT DISCHARGE INSTRUCTIONS SIGNATURE PAGE CHARISMA PANDA Location:[facility] Registration Date and Time:06/14/2023 10:20 EDT Primary Care Physician: Matteo Beltran DO, Attending Physician: He CLARKE, Clay Owens, I CHARISMA PANDA, have received the above patient education materials/instructions and have verbalized understanding. If ambulance or transport services are being used I further acknowledge being given a choice of service. ?? If you need to contact me, please call me at this number: . Patient/Net Technical Architect Name: Patient/Net Technical Architect Signature: Relationship to Patient: Witness Name/Signature: Date: * Kathryn Aaron RN: PERFORM Event Display: Patient Education Leaflets Authored Date: [id number] Carvedilol Oral Tablet ?? [id number] Carvedilol Oral Tablet Brands: Coreg Uses This medicine is used for the following purposes: ??? heart attack ??? heart failure ??? high bloodpressure ??? irregular heart beat ??? prevent bleeding ?? Instructions Take the medicine with food. This medicine will work best if you take it at about the same time every day. Store at room temperature away from heat, light, and moisture. Do not keep in the bathroom. It is important that you keep taking each dose of this medicine on time even if you are feeling well. If you forget to take a dose on time, take it as soon as you remember. If it is almost time for thenext dose, do not take the missed dose. Return to your normal schedule. Do not take 2 doses at one time. Drug interactions can change how medicines work or increase risk for side effects. Tell your healthcare providers about all medicines taken. Include prescription and vavl-xya-hinkaus medicines, vitamins, and herbal medicines. Speak with your doctor or pharmacist before starting or stopping any medicine. Tell your doctor if symptoms do not get better or if they get worse. If you have diabetes, this medicine may hide some signs of low blood sugar, such as fast heartbeat.Check your blood sugar regularly and for other signs of low blood sugar. Symptoms of low blood sugar may include nausea, shaking, sweating, cold skin, fast heartbeat, hunger, and irritability. If you need to stop this medicine, your doctor may wish to gradually reduce the dosage before stopping. Keep all appointments for medical exams and tests while on this medicine. ?? Cautions Tell your doctor and pharmacist if you ever had an allergic reaction to a medicine. Some patients with weak hearts may have worsening of symptoms. If you notice difficulty breathing, weight gain, or swelling of your legs or ankles, let your doctor know right away. Do not use the medication any more than instructed. Your ability to stay alert or to react quickly may be impaired by this medicine. Do not drive or operate machinery until you know how this medicine will affect you. Please check with your doctor before drinking alcohol while on this medicine. It is unknown if this medicine passes into breast milk. Ask your doctor before . This medicine can hurt a new baby in the womb. If you become while on this medicine, tell your doctor immediately. Your doctor may switch you to a different medicine. Do not share this medicine with anyone who has not been prescribed this medicine. ?? Side Effects The following is a list of some common side effects from this medicine. Please speak with your doctor about what you should do if you experience these or other side effects. ??? diarrhea ??? dizziness or drowsiness ??? slow heartbeat ??? impotence ??? lightheadedness Call your doctor or get medical help right away if you notice any of these more serious side effects: ??? swelling of the legs, feet, and hands ??? lack of energy and tiredness ??? cold hands or feet ??? signs of kidney damage (such as change in urine color or bubbly urine) ??? shortness of breath ??? sudden or unexplained weight gain A few people may have an allergic reaction to this medicine. Symptoms can include difficulty breathing, skin rash, itching, swelling, or severe dizziness. If you notice any of these symptoms, seek medical help quickly. ?? Extra Please speak with your doctor, nurse, or pharmacist if you have any questions about this medicine. ?? https://[employer]/V2.0/fdbpem/5168 IMPORTANT NOTE: This document tells you briefly how to take your medicine, but it does not tell youall there is to know about it. Your doctor or pharmacist may give you other documents about your medicine. Please talk to them if you have any questions. Always follow their advice. There is a more complete description of this medicine available in Danish. Scan this code on your smartphone or tablet or use the web address below. You can also ask your pharmacist for a printout. If you have any questions, please ask your pharmacist. The display and use of this drug information is subject to Terms of Use. Copyright(c) 2022 [employer]. ?? [employer]. All rights reserved. This information is not intended as a substitute for professional medical care. Always follow your healthcare professional's instructions. ?? * Kathryn Aaron RN: PERFORM Event Display: Patient Education Leaflets Authored Date: [id number] Colchicine Oral Tablet ?? [id number] Colchicine Oral Tablet Brands: Colcrys Uses This medicine is used for the following purposes: ??? genetic disorder ??? gout ??? heart ??? prevent gout ?? Instructions This medicine may be taken with or without food. Keep the medicine at room temperature. Avoid heat and direct light. Avoid grapefruit juice while on this medicine. Drug interactions can change how medicines work or increase risk for side effects. Tell your healthcare providers about all medicines taken. Include prescription and ttze-qbe-oqfjoud medicines, vitamins, and herbal medicines. Speak with your doctor or pharmacist before starting or stopping any medicine. It is very important that you follow your doctor's instructions for all blood tests. ?? Cautions Tell your doctor and pharmacist if you ever had an allergic reaction to a medicine. Do not use the medication any more than instructed. Contact your doctor if you notice a change in the amount or darkening of your urine. Tell the doctor or pharmacist if you are , planning to be , or . Call your doctor right away if you notice any unusual bleeding or bruising. Do not share this medicine with anyone who has not been prescribed this medicine. Some patients have serious side effects from this medicine. Ask your pharmacist to show you the information from the Food and Drug Administration (FDA) and discuss it with you. ?? Side Effects The following is a list of some common side effects from this medicine. Please speak with your doctor about what you should do if you experience these or other side effects. ??? diarrhea ??? nausea and vomiting ??? stomach upset or abdominal pain Call your doctor or get medical help right away if you notice any of these more serious side effects: ??? numbness or tingling in hands and feet ??? rapid heartbeat ??? muscle weakness ??? pale or blueskin, lips or fingernails ??? shortness of breath ??? sore throat ??? unusual or unexplained tiredness or weakness ??? urinating less often A few people may have an allergic reaction to this medicine. Symptoms can include difficulty breathing, skin rash, itching, swelling, or severe dizziness. If you notice any of these symptoms, seek medical help quickly. ?? Extra Please speak with your doctor, nurse, or pharmacist if you have any questions about this medicine. ?? https://[employer]/V2.0/fdbpem/20 IMPORTANT NOTE: This document tells you briefly how to take your medicine, but it does not tell youall there is to know about it. Your doctor or pharmacist may give you other documents about your medicine. Please talk to them if you have any questions. Always follow their advice. There is a more complete description of this medicine available in Danish. Scan this code on your smartphone or tablet or use the web address below. You can also ask your pharmacist for a printout. If you have any questions, please ask your pharmacist. The display and use of this drug information is subject to Terms of Use. Copyright(c) 2022 [employer]. ?? [employer]. All rights reserved. This information is not intended as a substitute for professional medical care. Always follow your healthcare professional's instructions. ?? Patient Care team information Care Team Personnel Name: Nisreen Tapia Position: [facility] RN Member Role: Primary Care Nurse Name: Desmond Anton RN Position: [facility] RN Member Role: Primary Care Nurse Name: Eliza Ch RN Position: [facility] RN Member Role: Primary Care Nurse Name: Izzy Cooper Position: [facility] RN Member Role: Primary Care Nurse Name: Vernell Esparza RN Position: [facility] RN Member Role: Primary Care Nurse Name: Elie Alex MD Position: [facility] Renal MD Member Role: Lifetime Consulting Physician Address: Address: [address] [place] [address], [address] [facility] [address] Name: Rayray Brand Position: [facility] Physician (General Medicine) Member Role: Primary Care Nurse Name: Jaziel Flowers RN Position: [facility] RN Member [...] Member Role: Lifetime Consulting Physician Address: Address: [address] [place], [place] [address] [place] [address]- Name: Lor Abdullahi RN [facility] Member Role: Lifetime Consulting Physician Address: Address: [address] [place] [address] [address] [facility] [place] [place] [address]- Name: Anna White RN Position: [facility] AMB Nurse Member Role: Primary Care Nurse Name: Mery Benavides Position: [facility] Associate Professional Member Role: Lifetime Consulting Provider Address: Address: [address] [place] [address] [facility] [place] [address]- [place] Name: Marleny Sanchez RN Position: [facility] RN Member Role: Primary Care Nurse Name: Matteo Beltran DO Position: [facility] Resident Member Role: PCP Address: Address: [address] [place] [address]- Name: Gabriel Chappell MD Position: [facility] Renal MD Member Role: Lifetime Consulting Physician Address: Address: [address] [place] [address] [facility] [place] [address]- [place] Name: Muriel Page RN Position: [facility] SN RN Member Role: Primary Care Nurse Name: Marielena Sheehan RN Position: [facility] RN Member Role: Primary Care Nurse Name: Nadia Hernandez RN Position: [facility] RN Member Role: Primary Care Nurse Name: Gina Wallace LPN Position: [facility] RN Member Role: Primary Care Nurse Name: Елена Jules RN Position: [facility] RN Member Role: Primary Care Nurse Name: Gerry DÍAZ Attending Position: [facility] ED Medicine MD Name: Lalita Huertas RN Position: [facility] ED RN W/OE and Tasks Member Role: Patient Care Provider Name: Ailyn Strickland Position: [facility] ED TA [facility] Member Role: Buyer Liaison Care Team Related Persons Name: CAMI ELIAS Address: [address] [place] [address] Name: HERMILO PANDA Address: [address] [address] Name: JACK PANDA Address: home [address] [place] [address]
--- OUTSIDE RECORDS SUMMARY | 2023-06-19 12:43 | XMS_ITS | Continuity of Care Document ---
Author Name Unknown Organization [facility] Address [address] [place] [address]- Care Team Providers Care Lay Health Advocate Name Role Phone Kenneth CLARKE, Arleen Primary Care Physician Encounter [facility] Date(s): 08/13/22 - 09/12/[address] [address]- Allergies, Adverse Reactions, Alerts Substance Reaction Severity Status ibuprofen decreased kidney function Ac tive aspirin decresed kidney function Act nina Toradol 1 decreased kidney function Ac tive Robaxin itching Active Valium difficulty breathing Active Vicodin itching Active 1Pt states he is not allergic to this medication Immunizations Given and Recorded Vaccine Date Status Refusal Reason [id number] 12y+ bivalent booster vax 1 07/17/22 Given [...] Note: vis Medications B-D PEN NDL SHRT [id number](02/10) COOPER B-D PEN NDL SHRT [id number](02/10) COOPER, See Instructions, # 100 each, 0 [...] 09/02/22 15:33:00 EST, Route to Pharmacy Electronically, [facility] #[id number], 168, cm, 07/30/22 15:53:00 EDT, Height, 60.2, kg, 07/24/22 0:30:00 EDT, Dry Weight Start Date: 09/02/22 Status: Ordered insulin glargine (concentrated) 300 units/mL subcutaneous solution See Instructions, 25 units s/c in the AM at the same time every day rotate injection sites, # 12 mL, 2 Refills, Maintenance, 06/29/22 11:32:00 EDT, Solution, [facility] #[id number], Partial fillupon patient request if the prescription is... Start Date: 06/29/22 Status: Ordered insulin lispro (concentrated) 200 units/mL subcutaneous solution See Instructions, 3 units Subcutaneous Infusion for FSBS of every 100 and 1 unit additional for every 40 above 100, # 12 mL, 3 Refills, Maintenance, 06/29/22 14:22:00 EDT, [facility] #[id number], Partial fill upon patient request if the prescript... Start Date: 06/29/22 Status: Ordered levothyroxine 0.025 mg oral tablet 1.5 tablet, By Mouth, Daily, # 135 tablet, 0 Refills, [facility] #[id number], 167.64, cm, 01/23/22 11:51:00 EDT, Height, 63.7, kg, 01/30/21 22:32:00 EDT, Dry Weight Start Date: 03/27/22 Status: Ordered multivitamin Multiple Vitamins oral capsule 1 capsule, By Mouth, Daily, # 30 capsule, 0 Refills, Maintenance, 09/04/22 11:03:00 EST, Capsule, [facility] #[id number], Partial fill upon patient request if the prescription is for a schedule II opioid drug., 1 capsule By Mouth Daily,x30 days,... Start Date: 09/04/22 Stop Date: 10/04/22 Status: Ordered [place], 31 G x 5 mm BD Ultra [...] 0 Refills, Maintenance, 06/28/22 11:25:00 EDT, Tablet, [facility] #[id number], Partial fill upon patient request if the prescription is for a schedule II opioid drug., 167, cm, 06/28/22 8:15:00 EDT,... Start Date: 06/28/22 Status: Ordered PROzac 20 mg oral capsule 20 mg, 1, capsule, By Mouth, Daily, # 30 capsule, Refills 0, Tot. Refills 0, Maintenance, 09/04/22 11:03:00 EST, Route to Pharmacy Electronically, [facility] #[id number], Partial fill upon patient request if the [...] Refills, Maintenance, 07/10/22 12:57:00 EDT, XR Tablet, [facility] #[id number], Partial... Start Date: 07/10/22 Stop Date: 08/09/22 Status: Ordered tamsulosin 0.4 mg oral capsule 0.4 mg, 1, capsule, By Mouth, Daily, # 30 capsule, Refills 0, Tot. Refills 0, Maintenance, :30:00 EDT, Route to Pharmacy Electronically, [email or web address] #[id number], Partial fill upon patient request if the prescription is for a schedule II... Start Date: 07/21/22 Status: Ordered valganciclovir 450 mg oral tablet 450 mg, 1, tablet, By Mouth, Every Thursday, Thursday and Thursday, # 26 tablet, Refills 1, Tot. Refills 1, Maintenance, 06/28/22 11:26:00 EDT, Route to Pharmacy Electronically, [facility] #[id number], Partial fill upon patient request if the [...] Active ADAM (obstructive sleep apnea) Confirmed Active [facility] Care Management [facility], Vernell Rui [phone] Confirmed Active Subclinical hypothyroidism Confirmed Active 1Weighed 1.5 pounds at . 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 Social History Social History Type Response Smoking Status Never smoker; Tobacc o user in household: No entered on: 09/12/15 Sex Patient Care team information Care Team Personnel Name: Desmond Anton RN Position: [facility] RN Member Role: Primary Care Nurse Name: Eliza Ch RN Position: [facility] RN Member Role: Primary Care Nurse Name: Izzy Cooper Position: [facility] RN Member Role: Primary Care Nurse Name: Elie Alex MD Position: [facility] Renal MD Member Role: Lifetime Consulting Physician Address: Address: [address] [place] [address], [address] [facility] [address] Name: Rayray Brand Position: [facility] Physician (General Medicine) Member Role: Primary Care Nurse Name: Liudmila Hinds Position: [facility] RN Member Role: Primary Care Nurse Name: Kannan Gibbs RN Position: [facility] RN Member Role: Primary Care Nurse Name: Chase Brumfield RN Position: [facility] ED RN W/OE and Tasks Member Role: Primary Care Nurse Name: Sissy Powers RN Position: [facility] RN Member Role: Primary Care Nurse Name: Link Stein RN Position: [facility] RN Supv Member Role: Primary Care Nurse Name: Isai Weaver DO Position: [facility] Renal MD Member Role: Lifetime Consulting Physician Address: Address: [address] [place], [place] [address] [place] [address]- Name: Lor Abdullahi RN Position: [facility] RN Member Role: Primary Care Nurse Name: Charity Billings RN Position: [facility] RN Member Role: Primary Care Nurse Name: Trae Hawkins III, RN Position: [facility] RN Member Role: Primary Care Nurse Name: Geoffrey Davis RN Position: [facility] RN Member Role: Primary Care Nurse Name: Yamini Soares Position: [facility] RN Member Role: Primary Care Nurse Name: Marcus Ardon RN Position: [facility] RN Member Role: Primary Care Nurse Name: Jaison Sherwood MD Position: [facility] Renal MD Member Role: Lifetime Consulting Physician Address: Address: [address] [place] [address] [address] [facility] [place] [address]- Name: Anna White RN Position: [facility] AMB Nurse Member Role: Primary Care Nurse Name: Marleny Sanchez RN Position: [facility] RN Member Role: Primary Care Nurse Name: Gabriel Chappell MD Position: [facility] Renal MD Member Role: Lifetime Consulting Physician Address: Address: [address] [place] [address] [facility] [place] [address]- Name: Muriel Page RN Position: [facility] SN RN Member Role: Primary Care Nurse Name: Marielena Sheehan RN Position: [facility] RN Member Role: Primary Care Nurse Name: Nadia Hernandez RN Position: [facility] RN Member Role: Primary Care Nurse Name: Alyssa Nguyen RN Position: [facility] RN Member Role: Primary Care Nurse Name: Елена Jules RN Position: [facility] RN Member Role: Primary Care Nurse Name: Arleen Cooper MD Position: [facility] Primary Care Physician Member Role: PCP Address: Address: [address] [place] [address] [place] Care Team Related Persons Name: CAMI ELIAS Address: home [address] [place] [address] Name: HERMILO PANDA Address: [address] [address] Name: JACK PANDA Address: home [address] [place] [address]
--- OUTSIDE RECORDS SUMMARY | 2023-06-19 12:43 | XMS_ITS | Continuity of Care Document ---
Author Name Unknown Organization [facility] Address [address] [place] [address]- Care Team Providers Care Rn Lpn Lvn Name Role Phone Kenneth CLARKE, Arleen Primary Care Physician Encounter [facility] [place] Date(s): 10/27/22 - 11/26/[address] [address]- Allergies, Adverse Reactions, Alerts Substance Reaction Severity Status ibuprofen decreased kidney function Ac tive aspirin decresed kidney function Act nina Toradol 1 decreased kidney function Ac tive Robaxin itching Active Valium difficulty breathing Active Vicodin itching Active 1Pt states he is not allergic to this medication Immunizations Given and Recorded Vaccine Date Status Refusal Reason [id number] 12y+ bivalent booster vax 1 07/17/22 Given [...] 11/25/22 Status: Ordered B-D PEN NDL MINI [id number](12/11)PRPL USE DIRECTED FOR TYPE 1 DIABETES Start Date: 11/25/22 Status: Ordered Baqsimi One Pack 3 mg nasal powder See Instructions, 3 mg Once In one nostril; dose does not need to be inhaled may repeat in 15 minutes alternate nostrils, # 1 each, 5 Refills, Soft Stop, 09/19/22 22:47:00 EST, [facility] #[id number], Partial fill upon patient request if the [...] tablet, 11 Refills, Maintenance, 10/17/22 12:12:00 EST, [facility] #[id number], 30, TAKE 1 TABLET BY MOUTH EVERY DAY, 168, cm, 09/19/22 14:56:00 EST, Height, 60.2, kg, 07/24/22 0:30:00 EDT, Dry Weight Start Date: 10/17/22 Status: Ordered FLUoxetine 20 mg oral capsule 1, capsule, By Mouth, Daily, # 30 capsule, Refills 11, Maintenance, 09/30/22 13:35:00 EST, Route toPharmacy Electronically, [facility] #[id number], 168, cm, 09/19/22 14:56:00 EST, Height, 60.2,kg, 07/24/22 0:30:00 EDT, Dry Weight Start Date: 09/30/22 Status: Ordered FreeStyle Sagar 2 Monitor See Instructions, # 1 each, Refills 0, Tot. Refills 0, Maintenance, use to check blood sugar every 8 hours, 11/17/22 8:32:00 EST, Supply, 168, cm, 11/11/22 8:46:00 EST, Height, 60.2, kg, 07/24/22 0:30:00 EDT, Dry Weight Start Date: 11/17/22 Status: Ordered FreeStyle Sagar 2 Sensors See [...] 09/02/22 15:33:00 EST, Route to Pharmacy Electronically, [facility] #[id number], 168, cm, 07/30/22 15:53:00 EDT, Height, 60.2, kg, 07/24/22 0:30:00 EDT, Dry Weight Start Date: 09/02/22 Status: Ordered glucose 4 gm oral tablet, chewable 4 tablet = 16 Gm, Chew, Once, PRN as needed for low blood sugar, # 50 tablet, 0 Refills, Soft Stop,09/19/22 22:51:00 EST, Chew Tablet, [facility] #[id number], Partial fill upon patient request if the prescription is for a schedule II opioid drug... Start Date: 09/19/22 Status: Ordered Lantus Solostar Pen 100 units/mL subcutaneous solution INJECT 18 UNITS UNDER THE SKIN EVERY NIGHT AT BEDTIME Start Date: 11/25/22 Status: Ordered levothyroxine 0.025 mg oral tablet 1.5 tablet, By Mouth, Daily, # 135 tablet, 0 Refills, [facility] #[id number], 167.64, cm, 01/23/22 11:51:00 EDT, Height, 63.7, [...] drug. Start Date: 11/25/22 Status: Ordered Pen [place], 31 G x 5 mm BD Ultra [...] 0 Refills, Maintenance, 06/28/22 11:25:00 EDT, Tablet, [facility] #[id number], Partial fill upon patient request if the [...] GIVEN HE IS ON ANTI REJECTION TREATMENT [facility] TRANSPLANT REJECTION Start Date: 11/25/22 Status: Ordered tacrolimus 1 mg oral tablet, extended release = 8 mg, By Mouth, Daily in AM, Please take tacrolimus 8 mg PO daily in AM and f/u with nephrologistfor level monitoring and dose adjustment., # 30 tablet, 0 Refills, Maintenance, 07/10/22 12:57:00 EDT, XR Tablet, [facility] #[id number], Partial... Start Date: 07/10/22 Stop Date: 08/09/22 Status: Ordered tamsulosin 0.4 mg oral capsule 0.4 mg, 1, capsule, By Mouth, Daily, # 30 capsule, Refills 0, Tot. Refills 0, Maintenance, :30:00 EDT, Route to Pharmacy Electronically, [facility] #[id number], Partial fill upon patient request if the prescription is for a schedule II... Start Date: 07/21/22 Status: Ordered valganciclovir 450 mg oral tablet 450 mg, 1, tablet, By Mouth, Every Thursday, Thursday and Thursday, # 26 tablet, Refills 1, Tot. Refills 1, Maintenance, 06/28/22 11:26:00 EDT, Route to Pharmacy Electronically, [facility] #[id number], Partial fill upon patient request if the [...] Active ADAM (obstructive sleep apnea) Confirmed Active [facility] Care Management [facility] [phone] Confirmed Active Subclinical hypothyroidism Confirmed Active 1Weighed 1.5 pounds at . 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 Social History Social History Type Response Smoking Status Never smoker; Tobacc o user in household: No entered on: 09/12/15 Sex Patient Care team information Care Team Personnel Name: Desmond Anton RN Position: [facility] RN Member Role: Primary Care Nurse Name: Eliza Ch RN Position: S RN Member Role: Primary Care Nurse Name: Izzy Cooper Position: S RN Member Role: Primary Care Nurse Name: Elie Alex MD Position: [facility] Renal MD Member Role: Lifetime Consulting Physician Address: Address: [address] [place] [address], [address] [facility] [place] [address]- Name: Rayray Brand Position: [facility] Physician (General Medicine) Member Role: Primary Care Nurse Name: Liudmila Hinds Position: [facility] RN Member Role: Primary Care Nurse Name: Kannan Gibbs RN Position: [facility] RN Member Role: Primary Care Nurse Name: Chase Brumfield RN Position: [facility] ED RN W/OE and Tasks Member Role: Primary Care Nurse Name: Link Stein RN Position: [facility] RN Supv Member Role: Primary Care Nurse Name: Isai Weaver DO Position: [facility] Renal MD Member Role: Lifetime Consulting Physician Address: Address: [address] [place], [place] [address] [place] [address]- Name: Lor Abdullahi RN Position: [facility] RN Member Role: Primary Care Nurse Name: Charity Billings RN Position: [facility] RN Member Role: Primary Care Nurse Name: Trae Hawkins III, RN Position: [facility] RN Member Role: Primary Care Nurse Name: Yamini Soares Position: [facility] RN Member Role: Primary Care Nurse Name: Marcus Ardon RN Position: [facility] RN Member Role: Primary Care Nurse Name: Jaison Sherwood MD Position: [facility] Renal MD Member Role: Lifetime Consulting Physician Address: Address: [address] [place] [address] [address] [facility] [place] [address]- Name: Anna White RN Position: [facility] AMB Nurse Member Role: Primary Care Nurse Name: Marleny Sanchez RN Position: [facility] RN Member Role: Primary Care Nurse Name: Gabriel Chappell MD Position: [facility] Renal MD Member Role: Lifetime Consulting Physician Address: Address: [address] [place] [address] [facility] [place] [address]- Name: Muriel Page RN Position: [facility] SN RN Member Role: Primary Care Nurse Name: Marielena Sheehan RN Position: [facility] RN Member Role: Primary Care Nurse Name: Nadia Hernandez RN Position: [facility] RN Member Role: Primary Care Nurse Name: Alyssa Nguyen RN Position: [facility] RN Member Role: Primary Care Nurse Name: Елена Jules RN Position: [facility] RN Member Role: Primary Care Nurse Name: Arleen Cooper MD Position: [facility] Primary Care Physician Member Role: PCP Address: Address: [address] [place] [address]- Care Team Related Persons Name: CAMI ELIAS Address: home [address] [place] [address] Name: HERMILO PANDA Address: [address] [address] Name: JACK PANDA Address: home [address] [place] [address]
--- OUTSIDE RECORDS SUMMARY | 2023-06-19 12:43 | XMS_ITS | Continuity of Care Document ---
Author Name Unknown Organization [facility] Address [address] [place] [address]- Care Team Providers Care Counter Dish Carrier Name Role Phone Arleen Coopre MD Primary Care Physician Encounter [facility] Date(s): 11/17/22 - 12/17/22 [facility] [address] [place] [address]- [place] Allergies, Adverse Reactions, Alerts Substance Reaction Severity Status ibuprofen decreased kidney function Ac tive aspirin decresed kidney function Act nina Toradol 1 decreased kidney function Ac tive Robaxin itching Active Valium difficulty breathing Active Vicodin itching Active 1Pt states he is not allergic to this medication Immunizations Given and Recorded Vaccine Date Status Refusal Reason [id number] 12y+ bivalent booster vax 1 07/17/22 Given [...] 11/25/22 Status: Ordered B-D PEN NDL MINI [id number](12/11)PRPL USE DIRECTED FOR TYPE 1 DIABETES Start Date: 11/25/22 Status: Ordered Baqsimi One Pack 3 mg nasal powder See Instructions, 3 mg Once In one nostril; dose does not need to be inhaled may repeat in 15 minutes alternate nostrils, # 1 each, 5 Refills, Soft Stop, 09/19/22 22:47:00 [facility] #[id number], Partial fill upon patient request if the [...] 30 tablet, 11 Refills, Maintenance, 10/17/22 12:12:00 [employer], [facility] #[id number], 30, TAKE 1 TABLET BY MOUTH EVERY DAY, 168, cm, 09/19/22 14:56:00 EST, Height, 60.2, kg, 07/24/22 0:30:00 EDT, Dry Weight Start Date: 10/17/22 Status: Ordered FLUoxetine 20 mg oral capsule 1, capsule, By Mouth, Daily, # 30 capsule, Refills 11, Maintenance, 09/30/22 13:35:00 EST, Route toPharmacy Electronically, [facility] #[id number], 168, cm, 09/19/22 14:56:00 EST, Height, 60.2,kg, [...] 09/02/22 15:33:00 EST, Route to Pharmacy Electronically, [facility] #[id number], 168, cm, 07/30/22 15:53:00 EDT, Height, 60.2, kg, 07/24/22 0:30:00 EDT, Dry Weight Start Date: 09/02/22 Status: Ordered glucose 4 gm oral tablet, chewable 4 tablet = 16 Gm, Chew, Once, PRN as needed for low blood sugar, # 50 tablet, 0 Refills, Soft Stop,09/19/22 22:51:00 EST, Chew Tablet, [facility] #[id number], Partial fill upon patient request if the prescription is for a schedule II opioid drug... Start Date: 09/19/22 Status: Ordered Golytely - oral powder for reconstitution See Instructions, Drink 240mL every 15 minutes until gone, # 4,000 mL, 0 Refills, Maintenance, 12/03/22 9:00:00 EST, [facility] #[id number], Partial fill upon patient request if the prescriptionis for a schedule II opioid drug., Drink 240mL ever... Start Date: 12/03/22 Status: Ordered Lantus Solostar Pen 100 units/mL subcutaneous solution INJECT 18 UNITS UNDER THE SKIN EVERY NIGHT AT BEDTIME Start Date: 11/25/22 Status: Ordered levothyroxine 0.025 mg oral tablet 1.5 tablet, By Mouth, Daily, # 135 tablet, 0 Refills, [facility] #[id number], 167.64, cm, 01/23/22 11:51:00 EDT, Height, 63.7, [...] drug. Start Date: 11/25/22 Status: Ordered Pen [place], 31 G x 5 mm BD Ultra [...] 0 Refills, Maintenance, 06/28/22 11:25:00 EDT, Tablet, [facility] #[id number], Partial fill upon patient request if the [...] GIVEN HE IS ON ANTI REJECTION TREATMENT [facility] TRANSPLANT REJECTION Start Date: 11/25/22 Status: Ordered tacrolimus 1 mg oral tablet, extended release = 8 mg, By Mouth, Daily in AM, Please take tacrolimus 8 mg PO daily in AM and f/u with nephrologistfor level monitoring and dose adjustment., # 30 tablet, 0 Refills, Maintenance, 07/10/22 12:57:00 EDT, XR Tablet, [facility] #[id number], Partial... Start Date: 07/10/22 Stop Date: 08/09/22 Status: Ordered tamsulosin 0.4 mg oral capsule 0.4 mg, 1, capsule, By Mouth, Daily, # 30 capsule, Refills 0, Tot. Refills 0, Maintenance, :30:00 EDT, Route to Pharmacy Electronically, [facility] #[id number], Partial fill upon patient request if the prescription is for a schedule II... Start Date: 07/21/22 Status: Ordered valganciclovir 450 mg oral tablet 450 mg, 1, tablet, By Mouth, Every Thursday, Thursday and Thursday, # 26 tablet, Refills 1, Tot. Refills 1, Maintenance, 06/28/22 11:26:00 EDT, Route to Pharmacy Electronically, [facility] #[id number], Partial fill upon patient request if the [...] Confirmed Active N Care Management Vernell Mckenzie [phone] Confirmed Active Subclinical hypothyroidism Confirmed Active 1Weighed [...] Elie Alex MD Position: [facility] Renal MD Member Role: Lifetime Consulting Physician Address: Address: [address] [place] [address], [address] [facility] [place], [place] [address] Name: Rayray Brand Position: [facility] Physician (General Medicine) Member Role: Primary Care Nurse Name: Liudmila Hinds Position: [facility] RN Member Role: Primary Care Nurse Name: Kannan Gibbs RN Position: [facility] RN Member Role: Primary Care Nurse Name: Chase Brumfield RN Position: [facility] ED RN W/OE and Tasks Member Role: Primary Care Nurse Name: Link Stein RN Position: [facility] RN Supv Member Role: Primary Care Nurse Name: Isai Weaver DO Position: [facility] Renal MD Member Role: Lifetime Consulting Physician Address: Address: [address] [place] [address] [address] [facility] [place] [address]- Name: Lor Abdullahi RN Position: [facility] RN Member Role: Primary Care Nurse Name: Charity Billings RN Position: [facility] RN Member Role: Primary Care Nurse Name: Trae Hawkins III, RN Position: S RN Member Role: Primary Care Nurse Name: Yamini Soares Position: S RN Member Role: Primary Care Nurse Name: Marcus Ardon RN Position: S RN Member Role: Primary Care Nurse Name: Jaison Sherwood MD Position: [facility] Renal MD Member Role: Lifetime Consulting Physician Address: Address: [address] [place] [address] [address] [facility] [place] [address]- [place] Name: Anna White RN Position: [facility] AMB Nurse Member Role: Primary Care Nurse Name: Marleny Sanchez RN Position: [facility] RN Member Role: Primary Care Nurse Name: Gabriel Chappell MD Position: [facility] Renal MD Member Role: Lifetime Consulting Physician Address: Address: [address] [place] [address] [facility] [place] [address]- Name: Muriel Page RN Position: [facility] SN RN Member Role: Primary Care Nurse Name: Marielena Sheehan RN Position: [facility] RN Member Role: Primary Care Nurse Name: Nadia Hernandez RN Position: [facility] RN Member Role: Primary Care Nurse Name: Alyssa Nguyen RN Position: [facility] RN Member Role: Primary Care Nurse Name: Елена Jules RN Position: [facility] RN Member Role: Primary Care Nurse Name: Arleen Cooper MD Position: [facility] Primary Care Physician Member Role: PCP Address: Address: [address] [place] [address]- Care Team Related Persons Name: CAMI ELIAS Address: [address] [place] [address] Name: HERMILO PANDA Address: [address] [address] Name: JACK PANDA Address: [address] [place] [address]
--- OUTSIDE RECORDS SUMMARY | 2023-06-19 12:43 | XMS_ITS | Continuity of Care Document ---
Author Name Unknown Organization [facility] Address [address] [place] [address]- Care Team Providers Care Paint Spray Tender Name Role Phone Arleen Cooper MD Primary Care Physician [phone] Encounter [facility] [place] R [id number] Date(s): 03/14/21 - 04/27/[address] [address]- Attending Physician: Newton Goodwin MD Admitting Physician: Newton Goodwin MD Referring Physician: Arleen Cooper MD Allergies, [...] 02/18/21 16:31:00 EDT, Route to Pharmacy Electronically, [facility] #[id number], Partial fill upon patientrequest if the prescription is for a schedule II op... Start Date: 02/18/21 Stop Date: 08/17/21 Status: Ordered B-D PEN NDL SHRT [id number](02/10) COOPER B-D PEN NDL SHRT [id number](02/10) COOPER, See Instructions, # 100 each, 0 [...] 07/18/20 11:05:00 EDT, Route to Pharmacy Electronically, [facility], 167.64, cm, 07/12/20 8:38:00 EDT, Height, 70, kg, 04/11/20 15:19:00... Start Date: 07/18/20 Stop Date: 08/17/20 Status: Ordered Envarsus XR 1 mg oral tablet, extended release 4 tablet = 4 mg, By Mouth, Daily in AM, # 240 tablet, 0 Refills, Maintenance, 04/12/20 12:33:00 EDT, [facility], 167.64, cm, 04/12/20 4:21:00 [...] & tomorrow, 04/19/20 15:08:00 EDT, Pt to moss picker 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 Start Date: 04/19/20 Stop Date: 06/18/20 Status: Ordered Lantus Solostar Pen 100 units/mL subcutaneous solution = 35 units, Subcutaneous Injection, Daily at bedtime, # 12 mL, 11 Refills, Maintenance, 03/12/21 16:28:00 EDT, [facility] #[id number], 167.64, cm, 02/28/21 10:34:00 EDT, Height, 63.7, kg, 01/30/21 22:32:00 EDT, Dry Weight Start Date: 03/12/21 Status: Ordered levothyroxine 0.025 mg oral tablet 1.5 tablet = 37.5 mcg, By Mouth, Daily, # 135 tablet, 0 Refills, Maintenance, 03/27/21 10:58:00 EDT, Tablet, [facility], 167.64, cm, 02/28/21 10:34:00 EDT, Height, 63.7, kg, 01/30/2122:32:00 EDT, Dry Weight Start Date: 03/27/21 Status: Ordered Pen [place], 31 G x 5 mm BD Ultra [...] pack/packet, 1 Refills, Maintenance, 06/21/20 16:51:00 EDT, [facility], Deliver to pt in [...] (obstructive sleep apnea)(Confirmed) Active Care Management [facility] Sarah (Confirmed) Active Subclinical hypothyroidism(Confirmed) Active 1Weighed 1.5 pounds at . 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
--- OUTSIDE RECORDS SUMMARY | 2023-06-19 12:43 | XMS_ITS | Continuity of Care Document ---
Author Name Unknown Organization [facility] Address [address] [place] [address]- Care Team Providers Care Securities Lending Trader Name Role Phone Arleen Cooper MD Primary Care Physician [phone] Encounter [facility] ACCT R [id number] Date(s): 05/31/21 - 06/30/[address] [address] Attending Physician: Admjessie, [id number] Admitting Physician: Admtr, [...] 02/18/21 16:31:00 EDT, Route to Pharmacy Electronically, [facility] #[id number], Partial fill upon patientrequest if the prescription is for a schedule II op... Start Date: 02/18/21 Stop Date: 08/17/21 Status: Ordered B-D PEN NDL SHRT [id number](02/10) COOPER B-D PEN NDL SHRT [id number](02/10) COOPER, See Instructions, # 100 each, 0 [...] & tomorrow, 04/19/20 15:08:00 EDT, Pt to warehouse order picker 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 Start Date: 04/19/20 Stop Date: 06/18/20 Status: Ordered Lantus Solostar Pen 100 units/mL subcutaneous solution = 35 units, Subcutaneous Injection, Daily at bedtime, # 12 mL, 11 Refills, Maintenance, 03/12/21 16:28:00 EDT, [facility] #[id number], 167.64, cm, 02/28/21 10:34:00 EDT, Height, 63.7, kg, 01/30/21 22:32:00 EDT, Dry Weight Start Date: 03/12/21 Status: Ordered levothyroxine 0.025 mg oral tablet 1.5 tablet = 37.5 mcg, By Mouth, Daily, You are due for thyroid lab work. Go to the lab, # 135 tablet, 0 Refills, Maintenance, 06/17/21 5:30:00 EDT, Tablet, [facility], 167.64, cm, 04/04/21 10:55:00 EDT, Height, 63.7, kg, 01/30/21 22:... Start Date: 06/17/21 Status: Ordered Pen [place], 31 G x 5 mm BD Ultra [...] ADAM (obstructive sleep apnea)(Confirmed) Active Care Management Sarah Webb (Confirmed) Active Subclinical hypothyroidism(Confirmed) Active 1Weighed 1.5 pounds at . 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
--- OUTSIDE RECORDS SUMMARY | 2023-06-19 12:43 | XMS_ITS | Continuity of Care Document ---
Author Name Unknown Organization [facility] Address [address] [place] [address]- Care Team Providers Care Aerobics Instructor Name Role Phone Arleen Cooper MD Primary Care Physician [phone] Encounter [facility] Date(s): 01/20/22 - 02/19/[address] [address]- Allergies, Adverse Reactions, Alerts Substance Reaction Severity [...] 02/18/21 16:31:00 EDT, Route to Pharmacy Electronically, [facility] #[id number], Partial fill upon patientrequest if the prescription is for a schedule II op... Start Date: 02/18/21 Stop Date: 08/17/21 Status: Ordered B-D PEN NDL SHRT [id number](02/10) COOPER B-D PEN NDL SHRT [id number](02/10) COOPER, See Instructions, # 100 each, 0 [...] 07/18/20 11:05:00 EDT, Route to Pharmacy Electronically, [facility], 167.64, cm, 07/12/20 8:38:00 EDT, Height, 70, kg, 04/11/20 15:19:00... Start Date: 07/18/20 Stop Date: 08/17/20 Status: Ordered Envarsus XR 1 mg oral tablet, extended release 4 tablet = 4 mg, By Mouth, Daily in AM, # 240 tablet, 0 Refills, Maintenance, 04/12/20 12:33:00 EDT, [facility], 167.64, cm, 04/12/20 [...] 01/23/22 16:09:00 EDT, Route to Pharmacy Electronically, [facility] #[id number], Partial fill upon patient request if the prescription is for a jana... Start Date: 01/23/22 Status: Ordered Kayexcelate Powder Kayexcelate Powder, 30 grams, By Mouth, Daily, # 454 Gm, Refills 1, Tot. Refills 1, Maintenance, Mix 8 level teaspoons in water or apple juice & drink by mouth today & tomorrow, 04/19/20 15:08:00 EDT, Pt to vegetable picker 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 Start Date: 04/19/20 Stop Date: 06/18/20 Status: Ordered Lantus Solostar Pen 100 units/mL subcutaneous solution = 35 units, Subcutaneous Injection, Daily at bedtime, # 12 mL, 11 Refills, Maintenance, 01/18/22 14:50:00 EDT, [facility] #[id number], 167.64, cm, 01/09/22 13:27:00 EDT, Height, 63.7, kg, 01/30/21 22:32:00 EDT, Dry Weight Start Date: 01/18/22 Status: Ordered levothyroxine 0.025 mg oral tablet 1.5 tablet = 37.5 mcg, By Mouth, Daily, You are due for thyroid lab work. Go to the lab. No refillswithout lab work., # 45 tablet, 0 Refills, Maintenance, 02/17/22 19:43:00 EDT, Tablet, [facility] #[id number], 167.64, cm, 01/23/22 11:51:00 EDT,... Start Date: 02/17/22 Status: Ordered Pen [place], 31 G x 5 mm BD Ultra [...] pack/packet, 1 Refills, Maintenance, 06/21/20 16:51:00 EDT, [facility], Deliver to pt [...] (obstructive sleep apnea)(Confirmed) Active N Care Management [facility] , Vernell Rui [phone](Confirmed) Active Subclinical hypothyroidism(Confirmed) Active 1Weighed 1.5 pounds at . 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
--- OUTSIDE RECORDS SUMMARY | 2023-06-19 12:43 | XMS_ITS | Continuity of Care Document ---
Author Name Unknown Organization [facility] Address [address] [place] [address]- Care Team Providers Care Customer Experience Specialist Name Role Phone Arleen Cooper MD Primary Care Physician [place] [facility] Date(s): 07/04/22 - 08/03/[address] [address] Allergies, Adverse Reactions, Alerts Substance Reaction Severity Status ibuprofen decreased kidney function Ac tive aspirin decresed kidney function Act nina Toradol 1 decreased kidney function Ac tive Robaxin itching Active Valium difficulty breathing Active Vicodin itching Active 1Pt states he is not allergic to this medication Immunizations Given and Recorded Vaccine Date Status Refusal Reason [id number] 12y+ bivalent booster vax 1 07/17/22 Given [...] Note: vis Medications B-D PEN NDL SHRT [id number](02/10) COOPER B-D PEN NDL SHRT [id number](02/10) COOPER, See Instructions, # 100 each, 0 [...] Start Date: 07/30/22 Status: Ordered free style yris reader free style yris reader, See Instructions, # 1 each, Refills 0, Tot. Refills 0, Maintenance, to be used to check BG up to 4 times a day dx: E 11.65. E11.22 YAMIL = lifetime, 10/28/22 12:13:00 EDT, Compound Start Date: 07/25/22 Status: Ordered Freestyle Yris 14 day sensor kit Freestyle Yris 14 day sensor kit, See Instructions, # [...] 2 Refills, Maintenance, 06/29/22 11:32:00 EDT, Solution, [facility] #[id number], Partial fillupon patient request if the prescription is... Start Date: 06/29/22 Status: Ordered insulin lispro (concentrated) 200 units/mL subcutaneous solution See Instructions, 3 units Subcutaneous Infusion for FSBS of every 100 and 1 unit additional for every 40 above 100, # 12 mL, 3 Refills, Maintenance, 06/29/22 14:22:00 EDT, [facility] #[id number], Partial fill upon patient request if the prescript... Start Date: 06/29/22 Status: Ordered levothyroxine 0.025 mg oral tablet 1.5 tablet, By Mouth, Daily, # 135 tablet, 0 Refills, [facility] #[id number], 167.64, cm, 01/23/22 11:51:00 EDT, Height, 63.7, [...] 0 Refills, Maintenance, 06/28/22 11:24:00 EDT, Capsule, [facility] #[id number], Partial fill upon patient request if the [...] 06/28/22 Stop Date: 07/28/22 Status: Ordered Pen [place], 31 G x 5 mm BD Ultra [...] 0 Refills, Maintenance, 06/28/22 11:25:00 EDT, Tablet, [facility] #[id number], Partial fill upon patient request if the prescription is for a schedule II opioid drug., 167, cm, 06/28/22 8:15:00 EDT,... Start Date: 06/28/22 Status: Ordered PROzac 20 mg oral capsule 20 mg, 1, capsule, By Mouth, Daily, # 30 capsule, Refills 0, Tot. Refills 0, Maintenance, 07/10/22 11:33:00 EDT, Route to Pharmacy Electronically, [facility] #[id number], Partial fill upon patient request if the [...] 09/08/22 11:34:00 EST, 07/10/22 11:34:00 EDT, Tablet, [facility] #[id number]... Start Date: 07/10/22 Stop Date: 09/08/22 Status: Ordered tacrolimus 1 mg oral tablet, extended release = 8 mg, By Mouth, Daily in AM, Please take tacrolimus 8 mg PO daily in AM and f/u with nephrologistfor level monitoring and dose adjustment., # 30 tablet, 0 Refills, Maintenance, 07/10/22 12:57:00 EDT, XR Tablet, [facility] #[id number], Partial... Start Date: 07/10/22 Stop Date: 08/09/22 Status: Ordered tamsulosin 0.4 mg oral capsule 0.4 mg, 1, capsule, By Mouth, Daily, # 30 capsule, Refills 0, Tot. Refills 0, Maintenance, :30:00 EDT, Route to Pharmacy Electronically, [facility] #[id number], Partial fill upon patient request if the prescription is for a schedule II... Start Date: 07/21/22 Status: Ordered valganciclovir 450 mg oral tablet 450 mg, 1, tablet, By Mouth, Every Thursday, Thursday and Thursday, # 26 tablet, Refills 1, Tot. Refills 1, Maintenance, 06/28/22 11:26:00 EDT, Route to Pharmacy Electronically, [facility] #[id number], Partial fill upon patient request if the [...] sleep apnea) Confirmed Active N Care Management [facility], Vernell Fabian [phone] Confirmed Active Subclinical hypothyroidism Confirmed Active 1Weighed 1.5 pounds at . 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
--- OUTSIDE RECORDS SUMMARY | 2023-06-19 12:43 | XMS_ITS | Continuity of Care Document ---
Author Name Unknown Organization [facility] Address [address] [place] [address]- Care Team Providers Care Pulmonary Physical Therapist Name Role Phone Arleen Cooper MD Primary Care Physician Encounter [facility] [place] Date(s): 12/03/22 - 01/02/23 [facility] [address] [place] [id number]- Attending Physician: Enid Maharaj Admitting Physician: Enid [...] and Recorded Vaccine Date Status Refusal Reason [id number] 12y+ bivalent booster vax 1 07/17/22 Given [...] 11/25/22 Status: Ordered B-D PEN NDL MINI [id number](12/11)PRPL USE DIRECTED FOR TYPE 1 DIABETES Start Date: 11/25/22 Status: Ordered Baqsimi One Pack 3 mg nasal powder See Instructions, 3 mg Once In one nostril; dose does not need to be inhaled may repeat in 15 minutes alternate nostrils, # 1 each, 5 Refills, Soft Stop, 09/19/22 22:47:00 EST, [facility] #[id number], Partial fill upon patient request if the [...] tablet, 11 Refills, Maintenance, 10/17/22 12:12:00 EST, [facility] #[id number], 30, TAKE 1 TABLET BY MOUTH EVERY DAY, 168, cm, 09/19/22 14:56:00 EST, Height, 60.2, kg, 07/24/22 0:30:00 EDT, Dry Weight Start Date: 10/17/22 Status: Ordered FLUoxetine 20 mg oral capsule 1, capsule, By Mouth, Daily, # 30 capsule, Refills 11, Maintenance, 09/30/22 13:35:00 EST, Route toPharmacy Electronically, [facility] #[id number], 168, cm, 09/19/22 14:56:00 EST, Height, 60.2,kg, [...] 09/02/22 15:33:00 EST, Route to Pharmacy Electronically, [facility] #[id number], 168, cm, 07/30/22 15:53:00 EDT, Height, 60.2, kg, 07/24/22 0:30:00 EDT, Dry Weight Start Date: 09/02/22 Status: Ordered glucose 4 gm oral tablet, chewable 4 tablet = 16 Gm, Chew, Once, PRN as needed for low blood sugar, # 50 tablet, 0 Refills, Soft Stop,09/19/22 22:51:00 EST, Chew Tablet, [facility] #[id number], Partial fill upon patient request if the prescription is for a schedule II opioid drug... Start Date: 09/19/22 Status: Ordered Golytely - oral powder for reconstitution See Instructions, Drink 240mL every 15 minutes until gone, # 4,000 mL, 0 Refills, Maintenance, 12/03/22 9:00:00 EST, [facility] #[id number], Partial fill upon patient request if the prescriptionis for a schedule II opioid drug., Drink 240mL ever... Start Date: 12/03/22 Status: Ordered Lantus Solostar Pen 100 units/mL subcutaneous solution See Instructions, Please take 20 units at bedtime E11.8, # 45 mL, 3 Refills, Maintenance, 12/29/22 8:07:00 EDT, Injection, [facility] #[id number], Partial fill upon patient request if the prescription is for a schedule II opioid drug., 168, cm,... Start Date: 12/29/22 Status: Ordered levothyroxine 0.025 mg oral tablet 1.5 tablet, By Mouth, Daily, # 135 tablet, 0 Refills, [facility] #[id number], 167.64, cm, 01/23/22 11:51:00 EDT, Height, 63.7, [...] BG... Start Date: 12/27/22 Status: Ordered Pen [place], 31 G x 5 mm BD Ultra [...] 0 Refills, Maintenance, 06/28/22 11:25:00 EDT, Tablet, [facility] #[id number], Partial fill upon patient request if the [...] GIVEN HE IS ON ANTI REJECTION TREATMENT [facility] TRANSPLANT REJECTION Start Date: 11/25/22 Status: Ordered tacrolimus 1 mg oral tablet, extended release = 8 mg, By Mouth, Daily in AM, Please take tacrolimus 8 mg PO daily in AM and f/u with nephrologistfor level monitoring and dose adjustment., # 30 tablet, 0 Refills, Maintenance, 07/10/22 12:57:00 EDT, XR Tablet, [facility] #[id number], Partial... Start Date: 07/10/22 Stop Date: 08/09/22 Status: Ordered tamsulosin 0.4 mg oral capsule 0.4 mg, 1, capsule, By Mouth, Daily, # 30 capsule, Refills 0, Tot. Refills 0, Maintenance, :30:00 EDT, Route to Pharmacy Electronically, [facility] #[id number], Partial fill upon patient request if the prescription is for a schedule II... Start Date: 07/21/22 Status: Ordered Trulicity Pen 0.75 mg/0.5 mL subcutaneous solution 0.5 mL = 0.75 mg, Subcutaneous Injection, Every week, rotate injection sites, # 2 mL, 5 Refills, Maintenance, 12/26/22 17:06:00 EDT, Solution, [facility] #[id number], Partial fill upon patient request if the prescription is for a schedule II opio... Start Date: 12/26/22 Status: Ordered valganciclovir 450 mg oral tablet 450 mg, 1, tablet, By Mouth, Every Thursday, Thursday and Thursday, # 26 tablet, Refills 1, Tot. Refills 1, Maintenance, 06/28/22 11:26:00 EDT, Route to Pharmacy Electronically, [facility] #[id number], Partial fill upon patient request if the [...] Active ADAM (obstructive sleep apnea) Confirmed Active [facility] Care Management [facility], Vernell Fabian [phone] Confirmed Active Subclinical hypothyroidism Confirmed Active 1Weighed 1.5 pounds at . 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 Social History Social History Type Response Smoking Status Never smoker; Tobacc o user in household: No entered on: 09/12/15 Sex Patient Care team information Care Team Personnel Name: Desmond Anton RN Position: [facility] RN Member Role: Primary Care Nurse Name: Eliza Ch RN Position: [facility] RN Member Role: Primary Care Nurse Name: Izzy Cooper Position: [facility] RN Member Role: Primary Care Nurse Name: Elie Alex MD Position: [facility] Renal MD Member Role: Lifetime Consulting Physician Address: Address: [address] [place] [address], [address] [facility] [address] Name: Rayray Brand Position: [facility] Physician (General Medicine) Member Role: Primary Care Nurse Name: Guzman Liudmila Position: [facility] RN Member Role: Primary Care Nurse Name: Kannan Gibbs RN Position: [facility] RN Member Role: Primary Care Nurse Name: Chase Brumfield RN Position: [facility] ED RN W/OE and Tasks Member Role: Primary Care Nurse Name: Link Stein RN Position: [facility] RN Supv Member Role: Primary Care Nurse Name: Isai Weaver DO Position: [facility] Renal MD Member Role: Lifetime Consulting Physician Address: Address: [address] [place], [place] [address] [place] [address]- Name: Lor Abdullahi RN Position: [facility] RN Member Role: Primary Care Nurse Name: Charity Billings RN Position: [facility] RN Member Role: Primary Care Nurse Name: Trae Hawkins III, RN Position: [facility] RN Member Role: Primary Care Nurse Name: Yamini Soares Position: [facility] RN Member Role: Primary Care Nurse Name: Marcus Ardon RN Position: [facility] RN Member Role: Primary Care Nurse Name: Jaison Sherwood MD Position: [facility] Renal MD Member Role: Lifetime Consulting Physician Address: Address: [address] [place] [address] [address] [facility] [place] [address]- Name: Anna White RN Position: [facility] AMB Nurse Member Role: Primary Care Nurse Name: Marleny Sanchez RN Position: [facility] RN Member Role: Primary Care Nurse Name: Gabriel Chappell MD Position: [facility] Renal MD Member Role: Lifetime Consulting Physician Address: Address: [address] [place] [address] [facility] [place] [address]- Name: Muriel Page RN Position: [facility] SN RN Member Role: Primary Care Nurse Name: Marielena Sheehan RN Position: [facility] RN Member Role: Primary Care Nurse Name: Naida Hernandez RN Position: [facility] RN Member Role: Primary Care Nurse Name: Alyssa Nguyen RN Position: [facility] RN Member Role: Primary Care Nurse Name: Елена Jules RN Position: [facility] RN Member Role: Primary Care Nurse Name: Arleen Cooper MD Position: [facility] Primary Care Physician Member Role: PCP Address: Address: [address] [place] [id number]- Care Team Related Persons Name: CAMI ELIAS Address: home [address] [place] [address] Name: HERMILO PANDA Address: [address] [address] Name: JACK PANDA Address: home [address] [place] [address]
--- OUTSIDE RECORDS SUMMARY | 2023-06-19 12:43 | XMS_ITS | Continuity of Care Document ---
Author Name Unknown Organization [facility] Address [address] [place] [address]- Care Team Providers Care Patient Ombudsperson Name Role Phone Kenneth CLARKE, Arleen Primary Care Physician Encounter [facility] [place] Date(s): 08/28/22 - 09/27/[address] [address]- Allergies, Adverse Reactions, Alerts Substance Reaction Severity Status ibuprofen decreased kidney function Ac tive aspirin decresed kidney function Act nina Toradol 1 decreased kidney function Ac tive Robaxin itching Active Valium difficulty breathing Active Vicodin itching Active 1Pt states he is not allergic to this medication Immunizations Given and Recorded Vaccine Date Status Refusal Reason [id number] 12y+ bivalent booster vax 1 07/17/22 Given [...] Note: vis Medications B-D PEN NDL SHRT [id number](02/10) COOPER B-D PEN NDL SHRT [id number](02/10) COOPER, See Instructions, # 100 each, 0 [...] each, 5 Refills, Soft Stop, 09/19/22 22:47:00 [facility] #[id number], Partial fill upon patient request if the [...] 09/02/22 15:33:00 EST, Route to Pharmacy Electronically, [facility] #[id number], 168, cm, 07/30/22 15:53:00 EDT, Height, 60.2, kg, 07/24/22 0:30:00 EDT, Dry Weight Start Date: 09/02/22 Status: Ordered glucose 4 gm oral tablet, chewable 4 tablet = 16 Gm, Chew, Once, PRN as needed for low blood sugar, # 50 tablet, 0 Refills, Soft Stop,09/19/22 22:51:00 EST, Chew Tablet, [facility] #[id number], Partial fill upon patient request if the prescription is for a schedule II opioid drug... Start Date: 09/19/22 Status: Ordered insulin glargine (concentrated) 300 units/mL subcutaneous solution See Instructions, 25 units s/c in the AM at the same time every day rotate injection sites, # 12 mL, 2 Refills, Maintenance, 06/29/22 11:32:00 EDT, Solution, [facility] #[id number], Partial fillupon patient request if the prescription is... Start Date: 06/29/22 Status: Ordered insulin lispro (concentrated) 200 units/mL subcutaneous solution See Instructions, 3 units Subcutaneous Infusion for FSBS of every 100 and 1 unit additional for every 40 above 100, # 12 mL, 3 Refills, Maintenance, 06/29/22 14:22:00 EDT, [facility] #[id number], Partial fill upon patient request if the prescript... Start Date: 06/29/22 Status: Ordered levothyroxine 0.025 mg oral tablet 1.5 tablet, By Mouth, Daily, # 135 tablet, 0 Refills, [facility] #[id number], 167.64, cm, 01/23/22 11:51:00 EDT, Height, 63.7, kg, 01/30/21 22:32:00 EDT, Dry Weight Start Date: 03/27/22 Status: Ordered multivitamin Multiple Vitamins oral capsule 1 capsule, By Mouth, Daily, # 30 capsule, 0 Refills, Maintenance, 09/04/22 11:03:00 EST, Capsule, [facility] #[id number], Partial fill upon patient request if the prescription is for a schedule II opioid drug., 1 capsule By Mouth Daily,x30 days,... Start Date: 09/04/22 Stop Date: 10/04/22 Status: Ordered Pen [place], 31 G x 5 mm BD Ultra [...] 0 Refills, Maintenance, 06/28/22 11:25:00 EDT, Tablet, [facility] #[id number], Partial fill upon patient request if the prescription is for a schedule II opioid drug., 167, cm, 06/28/22 8:15:00 EDT,... Start Date: 06/28/22 Status: Ordered PROzac 20 mg oral capsule 20 mg, 1, capsule, By Mouth, Daily, # 30 capsule, Refills 0, Tot. Refills 0, Maintenance, 09/04/22 11:03:00 EST, Route to Pharmacy Electronically, [facility] #[id number], Partial fill upon patient request if the [...] Refills, Maintenance, 07/10/22 12:57:00 EDT, XR Tablet, [facility] #[id number], Partial... Start Date: 07/10/22 Stop Date: 08/09/22 Status: Ordered tamsulosin 0.4 mg oral capsule 0.4 mg, 1, capsule, By Mouth, Daily, # 30 capsule, Refills 0, Tot. Refills 0, Maintenance, :30:00 EDT, Route to Pharmacy Electronically, [facility] #[id number], Partial fill upon patient request if the prescription is for a schedule II... Start Date: 07/21/22 Status: Ordered valganciclovir 450 mg oral tablet 450 mg, 1, tablet, By Mouth, Every Thursday, Thursday and Thursday, # 26 tablet, Refills 1, Tot. Refills 1, Maintenance, 06/28/22 11:26:00 EDT, Route to Pharmacy Electronically, [facility] #[id number], Partial fill upon patient request if the [...] ADAM (obstructive sleep apnea) Confirmed Active [facility] Care Management Vernell Mckenzie [phone] Confirmed Active Subclinical hypothyroidism Confirmed Active 1Weighed 1.5 pounds at . 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 [address]- Name: Rayray Brand Position: [facility] Physician (General Medicine) Member Role: Primary Care Nurse Name: Liudmila Hinds Position: [facility] RN Member Role: Primary Care Nurse Name: Kannan Gibbs RN Position: [facility] RN Member Role: Primary Care Nurse Name: Chase Brumfield RN Position: [facility] ED RN W/OE and Tasks Member Role: Primary Care Nurse Name: Sissy Powers RN Position: [facility] RN Member Role: Primary Care Nurse Name: Link Stein RN Position: [facility] RN Supv Member Role: Primary Care Nurse Name: Isai Weaver DO Position: [facility] Renal MD Member Role: Lifetime Consulting Physician Address: Address: [address] [place], [place] [address] [place] [address]- Name: Lor Abdullahi RN Position: [facility] RN Member Role: Primary Care Nurse Name: Charity Billings RN Position: S RN Member Role: Primary Care Nurse Name: Trae Hawkins III, RN Position: [facility] RN Member Role: Primary Care Nurse Name: Geoffrey Davis RN Position: [facility] RN Member Role: Primary Care Nurse Name: Yamini Soares Position: [facility] RN Member Role: Primary Care Nurse Name: Marcus Ardon RN Position: [facility] RN Member Role: Primary Care Nurse Name: Jaison Sherwood MD Position: [facility] Renal MD Member Role: Lifetime Consulting Physician Address: Address: [address] [place] [address] [address] [facility] [place] [address]- Name: Anna White RN Position: [facility] AMB Nurse Member Role: Primary Care Nurse Name: Marleny Sanchez RN Position: [facility] RN Member Role: Primary Care Nurse Name: Gabriel Chappell MD Position: [facility] Renal MD Member Role: Lifetime Consulting Physician Address: Address: [address] [place] [address] [facility] [place] [address]- Name: Muriel Page RN Position: [facility] SN RN Member Role: Primary Care Nurse Name: Marielena Sheehan RN Position: [facility] RN Member Role: Primary Care Nurse Name: Nadia Hernandez RN Position: [facility] RN Member Role: Primary Care Nurse Name: Alyssa Nguyen RN Position: [facility] RN Member Role: Primary Care Nurse Name: Елена Jules RN Position: [facility] RN Member Role: Primary Care Nurse Name: Arleen Cooper MD Position: [facility] Primary Care Physician Member Role: PCP Address: Address: [address] [place] [address]- Care Team Related Persons Name: CAMI ELIAS Address: home [address] [place] [address] Name: HERMILO PANDA Address: [address] [address] Name: JACK PANDA Address: home [address] [place] [address]
--- OUTSIDE RECORDS SUMMARY | 2023-06-19 12:43 | XMS_ITS | Continuity of Care Document ---
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 Date(s): 07/06/22 - 07/10/[address] [id number] Encounter Diagnosis Hyperkalemia(Final) - 07/06/22 Discharge Disposition: A-D/C Home Attending Physician: Jewell CLARKE, Juilán Thornton Admitting Physician: Isidoro Marr DO Referring Physician: Not on Staff, Referring [...] Note: vis Medications B-D PEN NDL SHRT [id number](02/10) COOPER B-D PEN NDL SHRT [id number](02/10) COOPER, See Instructions, # 100 each, 0 [...] oral capsule 300 mg, Capsule, By Mouth, 07/10/22 9:00:00 EDT Start Date: 07/10/22 Stop Date: 07/10/22 Status: Completed gabapentin 300 mg oral capsule 300 mg, 1, capsule, By Mouth, 3 times a day, # 90 capsule, Refills 0, Tot. Refills 0, Maintenance, 01/23/22 16:09:00 EDT, Route to Pharmacy Electronically, [facility][id number], Partial fill upon patient request if the prescription is for a jana... Start Date: 01/23/22 Status: Ordered insulin glargine (concentrated) 300 units/mL subcutaneous solution See Instructions, 18 units s/c at bedtime, # 12 mL, 2 Refills, Maintenance, 06/29/22 11:32:00 EDT, Solution, [facility] #[id number], Partial fill upon patient request if the prescription is for a schedule II opioid drug., 167, cm, 06/29/22 8:48:0... Start Date: 06/29/22 Status: Ordered insulin lispro (concentrated) 200 units/mL subcutaneous solution See Instructions, 3 units Subcutaneous Infusion for FSBS of every 100 and 1 unit additional for every 40 above 100, # 12 mL, 3 Refills, Maintenance, 06/29/22 14:22:00 EDT, [facility] #[id number], Partial fill upon patient request if the prescript... Start Date: 06/29/22 Status: Ordered levothyroxine 0.025 mg oral tablet 1.5 tablet, By Mouth, Daily, # 135 tablet, 0 Refills, [facility] #[id number], 167.64, cm, 01/23/22 11:51:00 EDT, Height, 63.7, kg, 01/30/21 22:32:00 EDT, Dry Weight Start Date: 03/27/22 Status: Ordered multivitamin Multiple Vitamins oral capsule 1 capsule, By Mouth, Daily, # 30 capsule, 0 Refills, Maintenance, 06/28/22 11:24:00 EDT, Capsule, [facility] #[id number], Partial fill upon patient request if the prescription is for a schedule II opioid drug., 1 capsule By Mouth Daily,x30 days,... Start Date: 06/28/22 Stop Date: 07/28/22 Status: Ordered mycophenolate mofetil 500 mg oral tablet = 1,500 mg, By Mouth, 2 times a day, # 180 tablet, 1 Refills, Maintenance, 06/28/22 11:24:00 EDT, Tablet, [facility] #[id number], Partial fill upon patient request if the [...] 06/28/22 Stop Date: 07/28/22 Status: Ordered Pen [place], 31 G x 5 mm BD Ultra [...] 0 Refills, Maintenance, 06/28/22 11:25:00 EDT, Tablet, [facility] #[id number], Partial fill upon patient request if the prescription is for a schedule II opioid drug., 167, cm, 06/28/22 8:15:00 EDT,... Start Date: 06/28/22 Status: Ordered PROzac 20 mg oral capsule 20 mg, 1, capsule, By Mouth, Daily, # 30 capsule, Refills 0, Tot. Refills 0, Maintenance, 07/10/22 11:33:00 EDT, Route to Pharmacy Electronically, [facility] #[id number], Partial fill upon patient request if the prescription is for a schedule II... Start Date: 07/10/22 Stop Date: 08/09/22 Status: Ordered Renvela 800 mg oral tablet 1 tablet = 800 mg, By Mouth, 3 times a day with meals, # 90 tablet, 0 Refills, Maintenance, 06/28/22 11:25:00 EDT, Tablet, [facility] #[id number], Partial fill upon patient request if the [...] 09/08/22 11:34:00 EST, 07/10/22 11:34:00 EDT, Tablet, [facility] #[id number]... Start Date: 07/10/22 Stop Date: 09/08/22 Status: Ordered tacrolimus 1 mg oral tablet, extended release = 7 mg, By Mouth, Daily in AM, Please take tacrolimus 7 mg PO daily in AM and f/u with nephrologistfor level monitoring and dose adjustment., # 210 tablet, 0 Refills, Maintenance, 07/10/22 12:57:00 EDT, XR Tablet, [facility] #[id number], Partial... Start Date: 07/10/22 Stop Date: 08/09/22 Status: Ordered valganciclovir 450 mg oral tablet 450 mg, 1, tablet, By Mouth, Every Thursday, Thursday and Thursday, # 12 tablet, Refills 1, Tot. Refills 1, Maintenance, 06/28/22 11:26:00 EDT, Route to Pharmacy Electronically, [facility] #[id number], Partial fill upon patient request if the prescr... 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 History: Leg weakness. Stroke. Findings: Frontal and lateral views of the chest are compared to a prior study dated 04/11/2020. The cardiac and mediastinal silhouettes are within normal limits. Linear atelectasis is seen at theright lung base. The lungs are otherwise clear. The osseous and soft tissue structures are unremarkable. Impression: Right basilar atelectasis. WSN: [id number] Ordering Physician: Maria Luisa Sanchez Dictated By: Jaymie Leach MD Dictated Date/Time: 07/06/22 7:19 pm Reviewed By: Jaymie Leach MD Signed By: Jaymie Leach MD Signed Date/Time: 07/06/22 7:19 pm Transcribed By: AMANDA Transcribed Date/Time: 07/06/22 7:18 pm Vital Signs Most recent to oldest [Reference Range]: 1 2 3 Height 168 cm (07/10/22 1:27 PM) 168 cm (07/10/22 3:46 AM) 168 cm (07/10/22 12:38 AM) Weight 62.1 kg (07/10/22 11:06 AM) 68.5 kg (07/07/22 1:50 AM) Oxygen Saturation [94-100 %] 97 % (07/10/22 1:27 PM) 95 % (07/10/22 8:00 AM) 99 % (07/10/22 3:46 AM) Pulse Rate [55-90 bpm] 97 bpm *H* (07/10/22 1:27 PM) 85 bpm (07/10/22 8:00 AM) 91 bpm *H* (07/10/22 3:46 AM) Body Mass Index [18.5-24.99 kg/m2] 24.27 kg/m2 (07/07/22 1:50 AM) Blood Pressure [90-138/55-84 mm Hg] 106/65mm Hg (07/10/22 1:27 PM) 104/54mm Hg (07/10/22 8:00 AM) 140/73mm Hg *H* (07/10/22 3:46 AM) Respiratory Rate [16-30 br/min] 18 br/min (07/10/22 1:27 PM) 20 br/min (07/10/22 8:55 AM) 20 br/min (07/10/22 7:55 AM) Temperature [96.8-100.4 DegF] 97.8 DegF (07/10/22 1:27 PM) 98.3 DegF (07/10/22 8:00 AM) 97.8 DegF (07/10/22 3:46 AM) Mode of Delivery (Oxygen) Room air (07/10/22 1:27 PM) Room air (07/10/22 8:00 AM) Room air (07/10/22 3:46 AM) Blood pressure sites Arm, left (07/10/22 1:27 PM) Arm, right (07/10/22 12:38 AM) Arm, right (07/09/22 8:28 PM) Temperature Route Oral (07/10/22 1:27 PM) Oral (07/10/22 8:00 AM) Oral (07/10/22 3:46 AM) Dry Weight 68.5 kg (07/07/22 1:50 AM) Weight Obtained Via Bed scale (07/07/22 1:50 AM) Dry Weight Obtained Via Bed scale (07/07/22 1:50 AM) Social History Social History Type Response Smoking Status Never smoker; Tobacc o user in household: No entered on: 09/12/15 Sex Note * BHSPowerscribe , CIS S: TRANSCRIBE Jaymie Leach MD: VERIFY Event Display: Result: Authored Date: Examination: Chest performed on 07/06/2022. History: Leg weakness. Stroke. Findings: Frontal and lateral views of the chest are compared to a prior study dated 04/11/2020. The cardiac and mediastinal silhouettes are within normal limits. Linear atelectasis is seen at theright lung base. The lungs are otherwise clear. The osseous and soft tissue structures are unremarkable. Impression: Right basilar atelectasis. WSN: [id number] Ordering Physician: Maria Luisa Sanchez Dictated By: Jaymie Leach MD Dictated Date/Time: 07/06/22 7:19 pm Reviewed By: Jaymie Leach MD Signed By: Jaymie Leach MD Signed Date/Time: 07/06/22 7:19 pm Transcribed By: AMANDA Transcribed Date/Time: 07/06/22 7:18 pm Patient Care team information Personnel Name: Arleen Cooper MD Address: Address: [address] [place] [address]
--- OUTSIDE RECORDS SUMMARY | 2023-06-19 12:43 | XMS_ITS | Continuity of Care Document ---
Author Name Unknown Organization [facility] Address [address] [place] [address]- Care Team Providers Care Photograph Finisher Name Role Phone Kenneth CLARKE, Arleen Primary Care Physician [phone] Encounter [facility] Date(s): 08/19/22 - 09/18/[address] [id number] Allergies, Adverse Reactions, Alerts Substance Reaction Severity Status ibuprofen decreased kidney function Ac tive aspirin decresed kidney function Act nina Toradol 1 decreased kidney function Ac tive Robaxin itching Active Valium difficulty breathing Active Vicodin itching Active 1Pt states he is not allergic to this medication Immunizations Given and Recorded Vaccine Date Status Refusal Reason [id number] 12y+ bivalent booster vax 1 07/17/22 Given [...] Note: vis Medications B-D PEN NDL SHRT [id number](02/10) COOPER B-D PEN NDL SHRT [id number](02/10) COOPER, See Instructions, # 100 each, 0 [...] 09/02/22 15:33:00 EST, Route to Pharmacy Electronically, [facility] #[id number], 168, cm, 07/30/22 15:53:00 EDT, Height, 60.2, kg, 07/24/22 0:30:00 EDT, Dry Weight Start Date: 09/02/22 Status: Ordered insulin glargine (concentrated) 300 units/mL subcutaneous solution See Instructions, 25 units s/c in the AM at the same time every day rotate injection sites, # 12 mL, 2 Refills, Maintenance, 06/29/22 11:32:00 EDT, Solution, [facility] #[id number], Partial fillupon patient request if the prescription is... Start Date: 06/29/22 Status: Ordered insulin lispro (concentrated) 200 units/mL subcutaneous solution See Instructions, 3 units Subcutaneous Infusion for FSBS of every 100 and 1 unit additional for every 40 above 100, # 12 mL, 3 Refills, Maintenance, 06/29/22 14:22:00 EDT, [facility] #[id number], Partial fill upon patient request if the prescript... Start Date: 06/29/22 Status: Ordered levothyroxine 0.025 mg oral tablet 1.5 tablet, By Mouth, Daily, # 135 tablet, 0 Refills, [facility] #[id number], 167.64, cm, 01/23/22 11:51:00 EDT, Height, 63.7, kg, 01/30/21 22:32:00 EDT, Dry Weight Start Date: 03/27/22 Status: Ordered multivitamin Multiple Vitamins oral capsule 1 capsule, By Mouth, Daily, # 30 capsule, 0 Refills, Maintenance, 09/04/22 11:03:00 EST, Capsule, [facility] #[id number], Partial fill upon patient request if the prescription is for a schedule II opioid drug., 1 capsule By Mouth Daily,x30 days,... Start Date: 09/04/22 Stop Date: 10/04/22 Status: Ordered Pen [place], 31 G x 5 mm BD Ultra [...] 0 Refills, Maintenance, 06/28/22 11:25:00 EDT, Tablet, [facility] #[id number], Partial fill upon patient request if the prescription is for a schedule II opioid drug., 167, cm, 06/28/22 8:15:00 EDT,... Start Date: 06/28/22 Status: Ordered PROzac 20 mg oral capsule 20 mg, 1, capsule, By Mouth, Daily, # 30 capsule, Refills 0, Tot. Refills 0, Maintenance, 09/04/22 11:03:00 EST, Route to Pharmacy Electronically, [facility] #[id number], Partial fill upon patient request if the [...] Refills, Maintenance, 07/10/22 12:57:00 EDT, XR Tablet, [facility] #[id number], Partial... Start Date: 07/10/22 Stop Date: 08/09/22 Status: Ordered tamsulosin 0.4 mg oral capsule 0.4 mg, 1, capsule, By Mouth, Daily, # 30 capsule, Refills 0, Tot. Refills 0, Maintenance, :30:00 EDT, Route to Pharmacy Electronically, [facility] #[id number], Partial fill upon patient request if the prescription is for a schedule II... Start Date: 07/21/22 Status: Ordered valganciclovir 450 mg oral tablet 450 mg, 1, tablet, By Mouth, Every Thursday, Thursday and Thursday, # 26 tablet, Refills 1, Tot. Refills 1, Maintenance, 06/28/22 11:26:00 EDT, Route to Pharmacy Electronically, [facility] #[id number], Partial fill upon patient request if the [...] Active ADAM (obstructive sleep apnea) Confirmed Active [facility] Care Management [facility], Vernell Rui [phone] Confirmed Active Subclinical hypothyroidism Confirmed Active 1Weighed 1.5 pounds at . 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 Social History Social History Type Response Smoking Status Never smoker; Tobacc o user in household: No entered on: 09/12/15 Sex Patient Care team information Care Team Personnel Name: Desmond Anton RN Position: [facility] RN Member Role: Primary Care Nurse Name: Eliza Ch RN Position: [facility] RN Member Role: Primary Care Nurse Name: Izzy Cooper Position: [facility] RN Member Role: Primary Care Nurse Name: Elie Alex MD Position: [facility] Renal MD Member Role: Lifetime Consulting Physician Address: Address: [address] [place] [address], [address] [facility] [address] Name: Rayray Brand Position: [facility] Physician (General Medicine) Member Role: Primary Care Nurse Name: Liudmila Hinds Position: [facility] RN Member Role: Primary Care Nurse Name: Kannan Gibbs RN Position: [facility] RN Member Role: Primary Care Nurse Name: Chase Brumfield RN Position: [facility] ED RN W/OE and Tasks Member Role: Primary Care Nurse Name: Sissy Powers RN Position: [facility] RN Member Role: Primary Care Nurse Name: Link Stein RN Position: [facility] RN Supv Member Role: Primary Care Nurse Name: Isai Weaver DO Position: [facility] Renal MD Member Role: Lifetime Consulting Physician Address: Address: [address] [place], [place] [address] [place] [address]- Name: Lor Abdullahi RN Position: [facility] RN Member Role: Primary Care Nurse Name: Charity Billings RN Position: [facility] RN Member Role: Primary Care Nurse Name: Trae Hawkins III, RN Position: [facility] RN Member Role: Primary Care Nurse Name: Geoffrey Davis RN Position: [facility] RN Member Role: Primary Care Nurse Name: Yamini Soares Position: [facility] RN Member Role: Primary Care Nurse Name: Marcus Ardon RN Position: [facility] RN Member Role: Primary Care Nurse Name: Jaison Sherwood MD Position: [facility] Renal MD Member Role: Lifetime Consulting Physician Address: Address: [address] [place] [address] [address] [facility] [place] [address]- Name: Anna White RN Position: [facility] AMB Nurse Member Role: Primary Care Nurse Name: Marleny Sanchez RN Position: [facility] RN Member Role: Primary Care Nurse Name: Gabriel Chappell MD Position: [facility] Renal MD Member Role: Lifetime Consulting Physician Address: Address: [address] [place] [address] [facility] [place] [address]- Name: Muriel Page RN Position: [facility] SN RN Member Role: Primary Care Nurse Name: Marielena Sheehan RN Position: [facility] RN Member Role: Primary Care Nurse Name: Nadia Hernandez RN Position: [facility] RN Member Role: Primary Care Nurse Name: Alyssa Nguyen RN Position: [facility] RN Member Role: Primary Care Nurse Name: Елена Jules RN Position: [facility] RN Member Role: Primary Care Nurse Name: Arleen Cooper MD Position: [facility] Primary Care Physician Member Role: PCP Address: Address: [address] [place] [id number] [place] Care Team Related Persons Name: CAMI ELIAS Address: home [address] [place] [address] Name: HERMILO PANDA Address: home [address] [address] Name: JACK PANDA Address: home [address] [place] [address]
--- OUTSIDE RECORDS SUMMARY | 2023-06-19 12:43 | XMS_ITS | Continuity of Care Document ---
Author Name Unknown Organization [facility] Address [address] [place] [id number]- Care Team Providers Care Cellular Biologist Name Role Phone Arleen Cooper MD Primary Care Physician [phone] [place] [facility] [place]): 11/11/22 - 12/11/22 [facility] [address] [place] [address]- [place] Allergies, Adverse Reactions, Alerts Substance Reaction Severity Status ibuprofen decreased kidney function Ac tive aspirin decresed kidney function Act nina Toradol 1 decreased kidney function Ac tive Robaxin itching Active Valium difficulty breathing Active Vicodin itching Active 1Pt states he is not allergic to this medication Immunizations Given and Recorded Vaccine Date Status Refusal Reason [id number] 12y+ bivalent booster vax 1 07/17/22 Given [...] 11/25/22 Status: Ordered B-D PEN NDL MINI [id number](12/11)PRPL USE DIRECTED FOR TYPE 1 DIABETES Start Date: 11/25/22 Status: Ordered Baqsimi One Pack 3 mg nasal powder See Instructions, 3 mg Once In one nostril; dose does not need to be inhaled may repeat in 15 minutes alternate nostrils, # 1 each, 5 Refills, Soft Stop, 09/19/22 22:47:00 [facility] #[id number], Partial fill upon patient request if the [...] 30 tablet, 11 Refills, Maintenance, 10/17/22 12:12:00 [facility] #[id number], 30, TAKE 1 TABLET BY MOUTH EVERY DAY, 168, cm, 09/19/22 14:56:00 EST, Height, 60.2, kg, 07/24/22 0:30:00 EDT, Dry Weight Start Date: 10/17/22 Status: Ordered FLUoxetine 20 mg oral capsule 1, capsule, By Mouth, Daily, # 30 capsule, Refills 11, Maintenance, 09/30/22 13:35:00 EST, Route toPharmacy Electronically, [id number], 168, cm, 09/19/22 14:56:00 EST, Height, 60.2,kg, [...] 09/02/22 15:33:00 EST, Route to Pharmacy Electronically, [facility] #[id number], 168, cm, 07/30/22 15:53:00 EDT, Height, 60.2, kg, 07/24/22 0:30:00 EDT, Dry Weight Start Date: 09/02/22 Status: Ordered glucose 4 gm oral tablet, chewable 4 tablet = 16 Gm, Chew, Once, PRN as needed for low blood sugar, # 50 tablet, 0 Refills, Soft Stop,09/19/22 22:51:00 EST, Chew Tablet, [facility] #[id number], Partial fill upon patient request if the prescription is for a schedule II opioid drug... Start Date: 09/19/22 Status: Ordered Golytely - oral powder for reconstitution See Instructions, Drink 240mL every 15 minutes until gone, # 4,000 mL, 0 Refills, Maintenance, 12/03/22 9:00:00 EST, [facility] #[id number], Partial fill upon patient request if the prescriptionis for a schedule II opioid drug., Drink 240mL ever... Start Date: 12/03/22 Status: Ordered Lantus Solostar Pen 100 units/mL subcutaneous solution INJECT 18 UNITS UNDER THE SKIN EVERY NIGHT AT BEDTIME Start Date: 11/25/22 Status: Ordered levothyroxine 0.025 mg oral tablet 1.5 tablet, By Mouth, Daily, # 135 tablet, 0 Refills, [facility] #[id number], 167.64, cm, 01/23/22 11:51:00 EDT, Height, 63.7, [...] drug. Start Date: 11/25/22 Status: Ordered Pen [place], 31 G x 5 mm BD Ultra [...] 0 Refills, Maintenance, 06/28/22 11:25:00 EDT, Tablet, [facility] #[id number], Partial fill upon patient request if the [...] GIVEN HE IS ON ANTI REJECTION TREATMENT [facility] REJECTION Start Date: 11/25/22 Status: Ordered tacrolimus 1 mg oral tablet, extended release = 8 mg, By Mouth, Daily in AM, Please take tacrolimus 8 mg PO daily in AM and f/u with nephrologistfor level monitoring and dose adjustment., # 30 tablet, 0 Refills, Maintenance, 07/10/22 12:57:00 EDT, XR Tablet, [facility][id number], Partial... Start Date: 07/10/22 Stop Date: 08/09/22 Status: Ordered tamsulosin 0.4 mg oral capsule 0.4 mg, 1, capsule, By Mouth, Daily, # 30 capsule, Refills 0, Tot. Refills 0, Maintenance, :30:00 EDT, Route to Pharmacy Electronically, [id number], Partial fill upon patient request if the prescription is for a schedule II... Start Date: 07/21/22 Status: Ordered valganciclovir 450 mg oral tablet 450 mg, 1, tablet, By Mouth, Every Thursday, Thursday and Thursday, # 26 tablet, Refills 1, Tot. Refills 1, Maintenance, 06/28/22 11:26:00 EDT, Route to Pharmacy Electronically, [facility] #[id number], Partial fill upon patient request if the [...] [place] (obstructive sleep apnea) Confirmed Active [facility] Care Management Vernell Mckenzie [phone] Confirmed Active Subclinical hypothyroidism Confirmed Active 1Weighed 1.5 pounds at . 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 Social History Social History Type Response Smoking Status Never smoker; Tobacc o user in household: No entered on: 09/12/15 Sex Patient Care team information Care Team Personnel Name: Desmond Anton RN Position: [facility] RN Member Role: Primary Care Nurse Name: Eliza Ch RN Position: [facility] RN Member Role: Primary Care Nurse Name: Izzy Cooper Position: [facility] RN Member Role: Primary Care Nurse Name: Elie Alex MD Position: [facility] Renal MD Member Role: Lifetime Consulting Physician Address: Address: [address] [place] [address], [address] [facility] [place] [address]- Name: Rayray Brand Position: [facility] Physician (General Medicine) Member Role: Primary Care Nurse Name: Liudmila Hinds Position: [facility] RN Member Role: Primary Care Nurse Name: Kannan Gibbs RN Position: [facility] RN Member Role: Primary Care Nurse Name: Chase Brumfield RN Position: [facility] ED RN W/OE and Tasks Member Role: Primary Care Nurse Name: Link Stein RN Position: [facility] RN Supv Member Role: Primary Care Nurse Name: Isai Weaver DO Position: [facility] Renal MD Member Role: Lifetime Consulting Physician Address: Address: [address] [place] [address] [address] [facility] [place] [address]- Name: Lor Abdullahi RN Position: [facility] RN Member Role: Primary Care Nurse Name: Charity Billings RN Position: [facility] RN Member Role: Primary Care Nurse Name: Trae Hawkins III, RN Position: [facility] RN Member Role: Primary Care Nurse Name: Yamini Soares Position: S RN Member Role: Primary Care Nurse Name: Marcus Ardon RN Position: [facility] RN Member Role: Primary Care Nurse Name: Jaison Sherwood MD Position: [facility] Renal MD Member Role: Lifetime Consulting Physician Address: Address: [address] [facility] [place] [address]- [place] Name: Anna White RN Position: [facility] AMB Nurse Member Role: Primary Care Nurse Name: Marleny Sanchez RN Position: [facility] RN Member Role: Primary Care Nurse Name: Gabriel Chappell MD Position: [facility] Renal MD Member Role: Lifetime Consulting Physician Address: Address: [address] [place] [address] [facility] [place] [address]- Name: Muriel Page RN Position: [facility] SN RN Member Role: Primary Care Nurse Name: Marielena Sheehan RN Position: [facility] RN Member Role: Primary Care Nurse Name: Nadia Hernandez RN Position: [facility] RN Member Role: Primary Care Nurse Name: Alyssa Nguyen RN Position: [facility] RN Member Role: Primary Care Nurse Name: Елена Jules RN Position: [facility] RN Member Role: Primary Care Nurse Name: Arleen Cooper MD Position: [facility] Primary Care Physician Member Role: PCP Address: Address: [address] [place] [address]- Care Team Related Persons Name: CAMI ELIAS Address: home [address] [place] [address] Name: HERMILO PANDA Address: home [address] [address] Name: JACK PANDA Address: home [address] [place] [address]
--- OUTSIDE RECORDS SUMMARY | 2023-06-19 12:43 | XMS_ITS | Continuity of Care Document ---
Author Name Unknown Organization [facility] Address [address] [place] [id number]- Care Team Providers Care Retail Client Manager Name Role Phone Arleen Cooper MD Primary Care Physician [place] [facility] [place] 05/17/[address] [address]- [facility] Allergies, Adverse Reactions, Alerts [...] 09/30/20 9:23:00 EST, 04/30/20 9:21:00 EDT, Tablet, [facility], 1 tablet By Mouth [...] 04/30/20 9:22:00 EDT, Route to Pharmacy Electronically, [facility], 167.64, cm, 04/30/20 8:23:00 EDT, Height, 70, kg, ... Start Date: 04/30/20 Stop Date: 06/30/20 Status: Ordered docusate sodium 100 mg oral capsule 100 mg, 1, capsule, By Mouth, 3 times a day, PRN, # 90 capsule, Refills 0, Tot. Refills 0, Maintenance, for constipation, 04/12/20 12:34:00 EDT, Route to Pharmacy Electronically, [facility], 167.64, cm, 04/12/20 4:21:00 EDT, Height, 7... 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 Start Date: 04/19/20 Stop Date: 06/18/20 Status: Ordered Lantus Solostar Pen 100 units/mL subcutaneous solution = 30 units, Subcutaneous Injection, Daily at bedtime, # 10 mL, 11 Refills, Maintenance, 04/17/20 16:49:00 EDT, [facility] #[id number], 167.64, cm, 04/16/20 8:56:00 EDT, Height, 70, kg, 04/11/20 15:19:00 EDT, Dry Weight Start Date: 04/17/20 Status: Ordered levothyroxine 0.025 mg oral tablet 1.5 tablet = 37.5 mcg, By Mouth, Daily, # 45 tablet, 11 Refills, Maintenance, 04/18/20 17:51:00 EDT, Tablet, [facility] #[id number], 167.64, cm, 04/16/20 8:56:00 EDT, Height, 70, kg, 04/11/20 15:19:00 EDT, Dry Weight Start Date: 04/18/20 Status: Ordered NIFEdipine 60 mg oral tablet, extended release 60 mg, 1, tablet, By Mouth, Daily, # 30 tablet, Refills 0, Tot. Refills 0, Maintenance, 04/14/20 16:03:00 EDT, Route to Pharmacy Electronically, [place] [id number], 167.64, cm, 04/14/20 15:37:00 EDT, Height, 70, kg, 04/11/20 15:19:00 EDT, Dry We... Start Date: 04/14/20 Status: Ordered Pen [place], 31 G x 5 mm BD Ultra [...] 04/30/20 9:22:00 EDT, Route to Pharmacy Electronically, [facility], 167.64, cm, 04/30/20 8:23:00 [...]
--- NOTE | 2023-06-19 14:13 | ED_ITS ---
HPI - General Adult General Chief complaint: General Medical Stated complaint: type 2, l arm pain, soreness, abd pain, per ems Time Seen by Provider: 06/19/23 14:12 Source: patient Mode of arrival: EMS Limitations: other ( deaf) History of Present Illness HPI narrative: 48-year-old male with a history of C difficile colitis, hypothyroidism, diabetes with diabetic neuropathy, hyperkalemia, obstructive sleep apnea, hypertension, end-stage renal disease on dialysis, urinary tract infection, who is deaf but can read lips, whowas sent to the emergency department for evaluation of left arm pain . Information was obtained from the patient's sister and the patient's father who here in the emergency department with the patient. The patient was recently hospitalized at [facility] for diffuse joint and muscle pain. the family is not aware of what his diagnosis was but they states that they check the patient portal and the patient had uremic pericarditis. The patient states that he has been having intermittent chest pain but has no chest pain at this time. He has had a cough which is nonproductive. He denied shortness of breath or dyspnea on exertion. He denied fever or chills. He states that he had diarrhea today with no blood in the diarrhea. The patient has end-stage renal disease and is dialyzed on Mondays, Wednesdays and Fridays - the patient has been a dialysis patient for many years and did receive a kidney transplant in the past the but this failed and the patient required dialysis insulin very. The patient was at dialysis today and according to his family, the dialysis center did not think that he looked well, he was complaining of left arm pain, they stopped dialysis orally and sent into the emergency department for evaluation. Patient states that he has been having pain in his joints but in different joints throughout the last 2 weeks. He states that he was having increased pain in his knees but these have improved he is now having increased pain in his left wrist, he denies any injury I did obtain a record from [facility] dated . Discharge diagnoses were chest pain, uremic pericarditis, hypertensive urgency, ESR D on hemodialysis, diabetes mellitus, subclinical hypothyroidism, depression. Record states the patient was admitted on 06/11/2023 until for chest pain with normal nuclear stress test and echocardiogram at that time. Patient's persistent chest pain was felt to be secondary to uremic pericarditis the patient was started on colchicine. patient had echocardiogram pericardial effusion Related Data Previous Rx's Medication Instructions Recorded morphine 15 mg immediate release 15 mg PO Q4-6H PRN pain #10 tabs 06/19/23 tablet prednisone 20 mg tablet 40 mg (2 x 20 mg) PO DAILY 7 days 06/19/23 #14 tabs Allergies Allergy/AdvReac Type Severity Reaction Status Date / Time hydrocodone [From VICODIN] Allergy Intermediate RASH Unverified 06/14/20 18:22 ibuprofen [IBUPROFEN] Allergy Mild HIVES Unverified 06/14/20 18:22 diazepam [From VALIUM] Allergy Unknown ITCH Unverified 06/14/20 18:22 naproxen [NAPROXEN] Allergy Unknown RASH Unverified 06/14/20 18:22 Review of Systems 2 Review of Systems: Yes all other systems are reviewed and are negative [facility] Past Medical History [facility] Narrative: Past medical history: C difficile colitis, hypothyroidism, diabetes with diabetic neuropathy, hyperkalemia, obstructive sleep apnea, hypertension, end- stage renal disease on dialysis, urinary tract infection, Social History Social History Advance Directives: Yes Advance Directives Information Provided: Yes Advance Directives on File: No Physical Exam ED Vital Signs: Vital Signs - 24 hr 06/19/23 11:46 Temperature 98.7 F Pulse Rate 97 Respiratory Rate 18 Blood Pressure 147/82 H Pulse Oximetry 95 Oxygen Delivery Method Room Air BMI result Body Mass Index 23.1 Vital signs were normal Exam General: Awake, alert in no distress Head: Normocephalic, atraumatic EENT: PERRL, Lids normal, sclera normal, conjunctiva normal, nose normal , ears normal, throat without erythema or exudates Neck: Supple, no adenopathy, trachea midline and nontender Lung: breath sounds symmetric, no wheezing, rales or rhonchi Chest: symmetric movement, nontender Heart: regular rate and rhythm, normal S1, S2 no murmurs or rubs Abdomen: soft, non-tender, nondistended, normal bowel sounds Back: no vertebral tenderness, no CVAT Extremities: patient has a fistula in his right wrist /forearm area, there is a strong thrill palpable on the fistula patient does have have a joint effusion to his left wrist with no increased warmth or erythema. He does have pain with flexion extension of his wrist. Patient does have pain with palpation over his right knee with no obvious joint effusion, he does have pain with flexion extension of his knees bilateral Skin: no rashes, no lesion, normal color and warmth Neuro: Awake, alert, oriented, normal speech, cranial nerves intact, moves all extremities symmetrically Psych: Pleasant, cooperative Medications Administered Discontinued Medications Generic Name Dose Route Start Last Admin Trade Name Damián PRN Reason Stop Dose Admin Morphine Sulfate 4 mg 06/19/23 14:25 06/19/23 16:34 Morphine Sulfate 4 Mg/Ml Cartridge IVPUSH 06/19/23 14:26 4 mg ONCE STA Administration Protocol Medical Decision Making Medical Decision Making MDM Narrative: 48-year-old male with a history of C difficile colitis, hypothyroidism, diabetes with diabetic neuropathy, hyperkalemia, obstructive sleep apnea, hypertension, end-stage renal disease on dialysis Wednesdays and Thursday, urinary tract infection, who was sent to the emergency department from dialysis for joint pain and not appear well. Patient was hospitalized at [facility] for joint pain and chest pain and he may have had uremic pericarditis. Finding of pain in the left wrist. Patient's vital signs were normal. Patient did have a left wrist joint effusion with pain with flexion extension of the wrist as well as pain with palpation of his knees bilaterally and pain with flexion extension of his knees. The following evaluation was ordered: CBC, BMP, liver panel, troponin, blood cultures calms 2, EKG, chest x- ray x2. Patient's pain was treated with morphine 4 mg IV. 17 50 Patient was given morphine 4 mg IV for his pain patient's laboratory evaluation did reveal an elevated WBC and chronic changes consistent with his chronic kidney disease. Lactic acid was normal. High sensitive troponin I was detectable but not elevated 18.7 patient's chest x-ray, troponin, LFTs are pending therefore the patient's care was turned over to my colleague, Dr. Julia Hunt if these tests are negative, I will treat the patient for inflammatory arthritis with prednisone 40 mg once a day for 7 days, Tylenol 1000 mg every 6 hours as needed for pain and morphine 15 mg every 4-6 hours as needed for pain not relieved by Tylenol and prednisone. Differential Diagnosis Differential Diagnoses: The differential diagnosis associated with the presentation includes Differential diagnosis includes was not limited to acute fracture, inflammatory arthritis, Myocardial infarction, myocardial ischemia, pericarditis Admission/Observation Consideration of admission/observation: Escalation of care including admission/observation considered Lab Data MDM Lab Attestation statement: I reviewed the patient's lab results. my interpretation patient's laboratory evaluation is as follows: WBC was elevated 14,200 with left shift 86 neutrophils but no bands. Patient was anemic with an H&H of 9.3 and 29.0 -this is chronic and secondary to kidney disease. Patient's BUN and creatinine were elevated 31 and 4.64-this is secondary to his chronic kidney disease. Glucose elevated 163. 06/19/23 15:22 06/19/23 15:22 Labs: Lab Results 06/19/23 06/19/23 06/19/23 Range/Units 15:22 16:07 16:15 WBC 14.2 H (4.8-10.8) X10*3/uL RBC 3.07 L (4.60-5.80) X10*6/uL Hgb 9.3 L (14.0-18.0) g/dl Hct 29.0 L (42.0-52.0) % MCV 94.5 (80.0-98.0) fL MCH 30.3 (27.0-33.0) pg MCHC 32.1 (31.0-36.0) g/dl RDW 12.9 (11.0-16.0) % Plt Count 302 (160-400) X10*3/uL MPV 8.5 L (9.4-12.4) fL Immature Gran % (Auto) 0.5 H (0.0-0.4) % Neut % (Auto) 83.6 H (45-73) % Lymph % (Auto) 6.6 L (20-40) % Callaway % (Auto) 8.6 (2-11) % Eos % (Auto) 0.5 (0-4) % Baso % (Auto) 0.2 (0-2) % Lymph # (Auto) 0.9 L (1.2-4.9) X10*3/uL [place] # (Auto) 1.2 (0.1-1.2) X10*3/uL Eos # (Auto) 0.1 (0.0-0.4) X10*3/uL Baso # (Auto) 0.0 (0.0-0.2) X10*3/uL Abs Immat Gran (auto) 0.07 H (0.00-0.03) X10*3/uL Absolute Neuts (auto) 11.9 H (2.0-8.3) x10*3/uL Absolute Nucleated RBC 0.000 (0.0-0.012) X10*3/uL Nucleated RBC % (auto) 0.0 (0.0-0.2) /100WBC Sodium 140 (135-145) mmol/L Potassium 4.1 D (3.3-5.1) mmol/L Chloride 94 L (96-108) mmol/L Carbon Dioxide 28 (22-29) mmol/L Anion Gap 22 H (12-20) BUN 31 H (9-16) mg/dL Creatinine 4.64 H* (0.5-1.4) mg/dL Estim Creat Clear Calc 17.7 Estimated GFR 14 Random Glucose 163 H (60-115) mg/dL Lactic Acid 0.8 (0.5-2.0) mmol/L Calcium 8.8 (8.4-10.2) mg/dL Total Bilirubin 0.5 (0.0-1.0) mg/dL Direct Bilirubin 0.2 (0.0-0.5) mg/dL AST 15 (5-37) U/L ALT 8 (0-40) U/L Alkaline Phosphatase 114 (39-117) U/L Troponin I High Sens 18.7 (<3.5-35.0) ng/L Total Protein 7.7 (6.5-8.0) g/dL Albumin 3.7 (3.5-5.0) g/dL Independent Interpretation I performed an independent interpretation of an: EKG Interpretation: My independent interpretation 12 EKG done at 16:09 hours is as follows: Sinus rhythm with a rate is 97, first-degree AV block with IN interval 224 milliseconds, normal QRS duration, prolonged QTC interval 490 milliseconds, no ST segment elevation, no ST segment depression, no IN depression, no PACs, no PVCs, no T-wave abnormalities. My independent interpretation the patient's left wrist, shoulder and humeral x-rays are as follows: No acute fractures noted My independent interpretation of the patient's chest x-ray two view: No acute process, normal appearing cardiac silhouette Radiology Impression Discussion of test interpretation with radiology: I have reviewed the radiologist's reading. Radiologist Impression: XR shoulder, humerus, wrist left side IMPRESSION: * Mild osteoarthritis of the glenohumeral joint. * A few small foci of calcification are present in the region of the distal infraspinatus tendon. Calcific tendinitis could be a cause of shoulder pain. * No evidence of humeral fracture or subluxation. Alignment is normal at the glenohumeral joint and elbow. * The wrist is unremarkable. Dictated By: Ishaan Pearson MD XR chest 2V IMPRESSION: No acute cardiopulmonary process. Dictated By: Alice Stinson MD Discharge Plan Discharge Clinical Impression: Inflammatory arthritis Patient Disposition: Still a Patient Additional Instructions: At this time, I believe that your joint pain is caused by a nonspecific inflammatory arthritis. [facility] diagnosed you with uremic pericarditis which is inflammation of the lining of the heart caused by your kidney disease. Take the colchicine as prescribed on Thursday, , Thursday and Thursday for 4-6 weeks Take prednisone 20 mg pills, 3 pills once a day for 5 days. While you are taking prednisone, do not take any NSAIDs (Motrin, Advil, ibuprofen, Aleve, naproxen). Take Tylenol (acetaminophen) 500 mg pills 2 pills every 6 hours as needed for pain. For pain not relieved by prednisone or Tylenol take morphine 15 mg pills, 1 pill every 4 hours as needed for pain. This medication will make you sleepy, do not drive or work while taking this medication. Morphine is a narcotic medication and can be addicting. If you are concerned about addiction you can ask the pharmacist for less pills or do not get this prescription filled. Continue taking medications as prescribed by your providers Follow-up with your doctor in 2 days. Please return to the emergency department if your symptoms get worse or if you develop any symptoms that are concerning to you. Prescriptions: New prednisone 20 mg tablet 40 mg PO DAILY 7 Days Qty: 14 0RF morphine 15 mg tablet 15 mg PO Q4-6H PRN (Reason: pain) Qty: 10 0RF Rx Instructions: The patient may ask for partial fill; Partial Fill upon patient request.
[2023-06-19 15:27] LABS: MANUAL DIFF FLAG NO
[2023-06-19 15:29] LABS: Basophils Percent Auto 0.2 % (0-2); Eosinophils Absolute Auto 0.1 X10*3/uL (0.0-0.4); Eosinophils Percent Auto 0.5 % (0-4); Hemoglobin 9.3 g/dl (14.0-18.0); Imm Gran Abs Auto 0.07 X10*3/uL (0.00-0.03); Imm Gran Pct Auto 0.5 % (0.0-0.4); Lymphocytes Absolute Auto 0.9 X10*3/uL (1.2-4.9); Lymphocytes Percent Auto 6.6 % (20-40); Mean Corpuscular HGB Conc 32.1 g/dl (31.0-36.0); Mean Corpuscular Hemoglobin 30.3 pg (27.0-33.0); Mean Corpuscular Volume 94.5 fL (80.0-98.0); Mean Platelet Volume 8.5 fL (9.4-12.4); Monocytes Absolute Auto 1.2 X10*3/uL (0.1-1.2); Monocytes Percent Auto 8.6 % (2-11); Neutrophils Absolute Auto 11.9 x10*3/uL (2.0-8.3); Neutrophils Percent Auto 83.6 % (45-73); Platelet Count 302 X10*3/uL (160-400); Red Blood Count 3.07 X10*6/uL (4.60-5.80); Red Cell Distribution Width 12.9 % (11.0-16.0); White Blood Count 14.2 X10*3/uL (4.8-10.8)
--- NOTE | 2023-06-19 15:42 | ECG_ITS ---
Test Reason : CHEST PAIN Blood Pressure : / mmHG Vent. Rate : 097 BPM Atrial Rate : 097 BPM P-R Int : 224 ms QRS Dur : 092 ms QT Int : 386 ms P-R-T Axes : 051 023 052 degrees QTc Int : 490 ms Sinus rhythm with 1st degree A-V block Minimal voltage criteria for LVH, may be normal variant ( Sokolow-Alvarado ) Prolonged QT Abnormal ECG When compared with ECG of 14-AUG-2015 17:29, ND interval has increased QT has lengthened Referred By: Erik Elliott Electronically Signed By:KARLA العلي
[2023-06-19 16:06] LABS: Anion Gap 22 (12-20); Blood Urea Nitrogen 31 mg/dL (9-16); Calcium 8.8 mg/dL (8.4-10.2); Carbon Dioxide 28 mmol/L (22-29); Chloride 94 mmol/L (96-108); Creatinine Clr Calc Pharmacy 17.7; Estimated Glomerular Filt Rate 14; Glucose Random 163 mg/dL (60-115); Potassium 4.1 mmol/L (3.3-5.1); Sodium 140 mmol/L (135-145)
[2023-06-19 16:26] LABS: Alanine Aminotransferase 8 U/L (0-40); Albumin Level 3.7 g/dL (3.5-5.0); Alkaline Phosphatase 114 U/L (39-117); Aspartate Amino Transferase 15 U/L (5-37); Bilirubin Direct 0.2 mg/dL (0.0-0.5); Bilirubin Total 0.5 mg/dL (0.0-1.0); Total Protein 7.7 g/dL (6.5-8.0)
[2023-06-19 16:34] LABS: Troponin-I High Sensitivity 18.7 ng/L (<3.5-35.0)
[2023-06-19] MEDS: Morphine Sulfate 4 MG/ML CARTRIDGE IVPUSH (16:34)
[2023-06-19 16:39] LABS: Lactic Acid 0.8 mmol/L (0.5-2.0)
== END 2023-06-19 18:19 | disposition home or self-care (01) ==
PROVIDERS: Emergency Provider Emergency Medicine Emergency Medical Services
DX: M19.012 Primary osteoarthritis, left shoulder (principal); R10.9 Unspecified abdominal pain; R05.9 Cough, unspecified; N18.6 End stage renal disease; R07.89 Other chest pain; M25.532 Pain in left wrist; E11.22 Type 2 diabetes mellitus with diabetic chronic kidney disease; I12.0 Hypertensive chronic kidney disease with stage 5 chronic kidney disease or end stage renal disease; Z99.2 Dependence on renal dialysis; Z79.4 Long term (current) use of insulin; Z79.899 Other long term (current) drug therapy
CPT/HCPCS: 36415; 71046; 73030; 73060; 73110; 80048; 80076; 83605; 84484; 85025; 87040; 93005; 96374; 99283; 99284; J2270